=== PATIENT | female | born 1965 | race Caucasian/White ===

== ENCOUNTER 2019-07-20 17:11 | Emergency (ER) | payer BC, SELFPAY ==
[2019-07-20 17:13] VITALS: BP 143/83; PULSE 71; RESP 16; TEMP 35.8; O2SAT 97; BMI 33.3
--- NOTE | 2019-07-20 18:25 | ED.VIS.INJ ---
History of Present Illness Chief Complaint: Trauma Informant: Patient, Family, PCP Onset: Days - Secondary to fall down many steps. This occurred at [place]. She was evaluated trauma center. Diagnosed multiple rib fractures and right renal hematoma. To follow-up with her PCP today. Presented to the emergency department because of increased pain and swelling. Mechanism/Context: Blunt Injury, Fall Quality of Pain: Dull, Aching Location: Chest, right lower back and right lower extremity Current Severity: Mild Maximum Severity: Severe Worsened by: Palpation and movement Relieved by: Nothing Associated Symptoms: - - Patient denies hematuria. Patient denies pleuritic chest pain. Patient denies dyspnea with exertion. She does complain of discoloration and swelling of her right lower extremity.. Negative for: Parasthesias, Weakness, Loss of function, Inability to ambulate, Loss of consciousness, Amnesia Narrative: Middle-aged woman who fell down several steps. She was evaluated trauma center and diagnosed with 2 rib fracture on the right, renal hematoma on the right and multiple abrasions contusions. She was sent from her PCPs office because of swelling of her right lower extremity. She denies cardiac arrest or symptoms. She denies hematuria. She is on no anticoagulant. Prior similar symptoms: Yes Recent Illness/Hospitalization: Yes - Past Medical History (1) Depression Status: Chronic (2) Hypertension Status: Chronic (3) Ulcerative colitis Status: Chronic Past Medical History - Allergies and Home Meds Allergies/Adverse Reactions: Allergies sulfadiazine Allergy (Verified 07/20/19 17:12) Rash Primary Care Physician: Gee Curran MD [Primary Care Provider] - Prior records reviewed: No Lives: Spouse/ Significant Other Smoking Status: Current every day smoker Alcohol: Occasional Drugs: None - Family History Sibling Family History: Reports: Heart Disease Maternal Family History: Reports: Heart Disease Paternal Family History: Reports: Heart Disease Review of Systems General: Denies: Chills, Fever, Malaise, Sweats Eyes: Denies: Visual changes - bilaterally, Blurred Vision - bilaterally, Diplopia ENT: Denies: Bilateral ear pain, Rhinorrhea, Sore throat Cardiovascular: Reports: Chest pain - With movement Respiratory: Denies: Dyspnea, Cough, Dyspnea on exertion Gastrointestinal: Reports: Abdominal pain Genitourinary: Denies: Dysuria, Hematuria, Frequency Musculoskeletal: Reports: Back pain, Swelling, Extremity Pain. Denies: Myalgias, Arthralgias, Neck pain, -, - Skin: Reports: Abrasions, Wounds - Tubal abrasions and contusions. Denies: Rash Neurological: Denies: Headache, Weakness, Parasthesia, Numbness Psych: Reports: Depression. Denies: Anxiety, Suicidal thoughts Endocrine: Denies: Polyuria, Polydipsia Hematologic: Denies: Easy bruising, Easy bleeding Allergy: Denies: Uticaria, Swelling of the mouth, Swelling of the tongue Physical Exam Vital Signs/Narrative: Vital Signs Temp Pulse Resp BP Pulse Ox 07/20/19 17:13 96.4 F L 71 16 143/83 H 97 Inital Vital Signs reviewed: Yes General: Well nourished, Well developed Head: Normocephalic, Atraumatic Eyes: Perrl, EOMI ENT: TM's clear, No hemotympanum or drainage, No trauma Neck: Nontender, Full ROM Cardiovascular: Regular rate, Regular rhythm, No murmurs, Normal S1, Normal S2 Respiratory: No distress, CTA bilaterally, Chest nontender Abdomen: Soft, Nontender, Nondistended, Normal bowel sounds, No masses Back: CVA Tenderness - Right, Paraspinal Tenderness - Right lower back with ecchymosis noted. Negative for: CVA Tenderness - Left, Spinal Tenderness Extremeties: The right lower extremity is swollen comparison to the left. There is pain palpation of the calf. There is multiple contusions noted. There is no pain to palpation along the abductor canal. There is no inguinal lymphadenopathy or tenderness. DP and PT pulses are palpable. Skin: Normal color, No rash Neurological: Alert, Oriented x3, Cranial nerves II-XII grossly intact, Normal Strength, Normal Sensation Psychological: Normal affect - Glascow Coma Scale Eye Opening: Spontaneous Motor: Obeys Commands Verbal: Oriented Coma Scale Total: 15 Diagnostic/Tx/Re-eval Contacted at 1911 by radiology that the venous duplex of the right lower extremity was negative for DVT. Will discharge patient home with appropriate oral analgesia. - Medical Decision Making History of recent trauma, immobilization or long distance trip with swollen discolored right lower extremity venous duplex study was obtained to determine if a DVT was present versus contusion. If there is a DVT present she will not be able to be anticoagulated because of recent renal laceration and multiple rib fractures. ED Disposition - Plan for ED Patient: Disposition: Home or Assisted Living Diagnosis: Pain in right lower leg, Contusion of right lower extremity, Broken ribs, Kidney laceration, right Instructions: CONTUSION, Lower Extremity Prescriptions: Oxycodone HCl/Acetaminophen [Percocet 5/325] 1 tablet PO Q6H PRN PRN 5 Days #20 tablet PRN Reason: Pain Score 1-10/10 Transmission Status: Received by [facility]/pharmacy #[id number] Referrals: Gee Curran MD [Primary Care Provider] - As Needed Additional Instructions: Prescription was electronically transmitted to [facility] pharmacy located on back [facility], your pharmacy of choice.
[2019-07-20] MEDS: oxyCODONE 5 MG Tablet PO (18:38)
[2019-07-20 18:41] VITALS: BP 149/87; PULSE 81; RESP 16; O2SAT 96
--- NOTE | 2019-07-20 18:47 | US_ITS ---
STUDY: VENOUS DOPPLER ULTRASOUND - RIGHT LOWER EXTREMITY REASON FOR EXAM: Female, 54 years old. Swelling TECHNIQUE: Ultrasound evaluation of the deep vein system to include rueda-scale imaging and compression was performed. Rueda-scale imaging and Doppler sonographic evaluation, including duplex spectral analysis and qualitative color flow sonography, was performed. COMPARISON: None. FINDINGS: Common Femoral Vein: Normal compression, spontaneity and augmentation. Normal color Doppler. Common Femoral Vein/Greater Saphenous Junction: Normal compression, spontaneity and augmentation. Normal color Doppler. Deep Femoral Vein: Normal compression, spontaneity and augmentation. Normal color Doppler. Femoral Proximal: Normal compression, spontaneity and augmentation. Normal color Doppler. Femoral Middle: Normal compression, spontaneity and augmentation. Normal color Doppler. Femoral Distal: Normal compression, spontaneity and augmentation. Normal color Doppler. Popliteal Vein: Normal compression, spontaneity and augmentation. Normal color Doppler. Posterior Tibial Vein: Normal compression, spontaneity and augmentation. Normal color Doppler. Peroneal Vein: Normal compression, spontaneity and augmentation. Normal color Doppler. US/Venous Duplex Imag/Limited/Uni IMPRESSION: Normal venous Doppler ultrasound of the lower extremity. Electronically Signed: Koby Barker MD at 19:13 EDT , Service support ,
== END 2019-07-20 19:43 | disposition home or self-care (01) ==
PROVIDERS: Emergency Provider Emergency Medicine; Family Provider Family Medicine; PCP Family Medicine
DX: S22.41XA Multiple fractures of ribs, right side, initial encounter for closed fracture (principal); S80.11XA Contusion of right lower leg, initial encounter; S37.031A Laceration of right kidney, unspecified degree, initial encounter; W10.9XXA Fall (on) (from) unspecified stairs and steps, initial encounter; F32.9 Major depressive disorder, single episode, unspecified; I10 Essential (primary) hypertension; Z82.49 Family history of ischemic heart disease and other diseases of the circulatory system; Z88.2 Allergy status to sulfonamides; F17.200 Nicotine dependence, unspecified, uncomplicated
CPT/HCPCS: 93971; 99283

== ENCOUNTER 2019-12-07 15:48 | Emergency (ER) | payer OTHER, SELFPAY ==
[2019-12-07 15:49] VITALS: BP 140/68; PULSE 91; RESP 16; TEMP 36.6; O2SAT 98; BMI 29.0
[2019-12-07 15:52] VITALS: BP 140/68; PULSE 91; RESP 16; TEMP 36.6; O2SAT 98
--- NOTE | 2019-12-07 16:11 | ED.VIS.GI ---
History of Present Illness Chief Complaint: Abd Pain Narrative: Patient presenting for evaluation secondary to abdominal pain and flank pain. Patient states that back in June she suffered a mechanical fall where she actually suffered rib fractures and a laceration of her right kidney. She reports that since then she has been dealing with a continuous pain in that area that waxes and wanes. She reports that the pain is gotten somewhat worse recently, and has been associated with nausea vomiting and diarrhea over the course of the last 4 days. She denies any presence of fevers. She denies any urinary symptoms or hematuria. Patient states that she was at urgent care today, they evaluated her, and felt that she needed to come to the emergency department. Review of systems otherwise negative. Past Medical History - Allergies and Home Meds Allergies/Adverse Reactions: Allergies sulfadiazine Allergy (Verified 12/07/19 15:51) Rash Primary Care Physician: Gee Curran MD [Primary Care Provider] - Past Medical History: - - Ulcerative colitis and chronic pain Smoking Status: Current every day smoker - Family History Sibling Family History: Reports: Heart Disease Maternal Family History: Reports: Heart Disease Paternal Family History: Reports: Heart Disease Review of Systems All systems negative except as indicated General: Denies: Chills, Fever, Sweats Eyes: Denies: Visual changes - bilaterally, Diplopia ENT: Denies: Rhinorrhea, Sore throat Cardiovascular: Denies: Chest pain, Palpitations Respiratory: Denies: Dyspnea, Cough, Dyspnea on exertion Gastrointestinal: Reports: Abdominal pain, Nausea, Vomiting, Diarrhea Genitourinary: Denies: Dysuria, Hematuria, Frequency Musculoskeletal: Denies: Back pain, Extremity Pain Skin: Denies: Rash, Wounds Neurological: Denies: Headache, Weakness, Numbness Physical Exam Vital Signs/Narrative: Vital Signs Temp Pulse Resp BP Pulse Ox 12/07/19 15:52 97.9 F 91 16 140/68 H 98 12/07/19 15:49 97.9 F 91 16 140/68 H 98 Inital Vital Signs reviewed: Yes General: Well nourished, Well developed, No Acute Distress, - - Strong smell of tobacco smoke Head: Normocephalic, Atraumatic Eyes: Perrl, EOMI ENT: Moist mucous membranes, No rhinorrhea Neck: Supple, Nontender Cardiovascular: Regular rate, Regular rhythm, No murmurs Respiratory: No distress, CTA bilaterally, Chest nontender Abdomen: - - Right-sided flank tenderness to percussion, right lateral upper abdominal tenderness, no evidence of Deshpande sign, no palpable masses. Back: Nontender, Normal Inspection Extremities: Nontender, No edema Skin: Normal color, No rash Neurological: Alert, Oriented x3, Cranial nerves II-XII grossly intact, Normal Strength, Normal Sensation Psychological: Normal affect, Normal Mood Diagnostic/Tx/Re-eval - Medical Decision Making Patient presented secondary to right flank pain. IV was established patient was given morphine Zofran and fluids. CBC shows mild elevation of the patient's white blood cell count likely associated with her diarrheal illness. Chemistry shows a creatinine of 1.8. Patient had a creatinine in 2017 that was lower, but has had creatinines that have been higher in the past as well. This likely is associated with a mild acute kidney injury. Patient was given an additional dose of normal saline hydration. Repeat evaluation of the patient showed symptomatic improvement. CT abdomen and pelvis demonstrates chronic changes, nothing new. Patient's pain likely is secondary to her injury that happened back in the fall. Patient will be provided with a lidocaine patch and lidocaine patches for home. She was given reassurance. Patient was discharged in stable condition. ED Disposition - Plan for ED Patient: Disposition: Home or Assisted Living Diagnosis: Diarrhea, Dehydration, Flank pain Instructions: DEHYDRATION (6y-Adult), Treating Diarrhea, Rib Contusion Prescriptions: Lidocaine [Lidoderm] 1 ea TP DAILY #10 adh..patch Prescription Printed Referrals: Gee Curran MD [Primary Care Provider] - 3-5 Days
[2019-12-07 16:30] LABS: Bacteria 0 SEEN /hpf (None Seen); Mucous, Urine 0 SEEN /hpf (<or=2+); Red Blood Cells-Urine 0 SEEN /hpf (0-5)
[2019-12-07] MEDS: 0.9% Normal Saline 1,000 ML 1000 ML IV (16:30)
[2019-12-07] MEDS: Morphine 4 MG/ML Syringe IV (16:32)
[2019-12-07] MEDS: Ondansetron 4 MG/2 ML Vial IV (16:32)
[2019-12-07 16:37] LABS: Absolute Lymphocyte Count 3.71 X10^3/uL (0.83-4.51); Absolute Neutrophil Count 8.2 X10^3/uL (2.0-7.7); Basophil# 0.07 X10^3/uL; Basophil% 0.5 % (0-1); Eosinophil# 0.27 X10^3/uL; Hematocrit 38.8 % (37-47); Hemoglobin 13.1 g/dL (12.0-15.0); Lymphocyte # 3.71 X10^3/ul (4.0); Lymphocyte % 27.8 % (19-41); Mean Corp Hgb Conc 33.8 g/dL (32-36); Mean Corpuscular Hgb 31.1 pg (27.0-32.0); Mean Corpuscular Volume 92.2 fL (81-99); Mean Platelet Vol. 8.4 fl (6.2-12.0); Monocyte# 0.98 X10^3/uL; Monocyte% 7.4 % (0-10); NRBC Flagged by Analyzer 0 % (0-5); Neutrophil # 8.19 X10^3/uL (2.7-7.7); Neutrophil % 61.5 % (47-70); Platelet Count 349 K/mm3 (150-450); RBC Distribution Width CV 13.6 % (11.6-14.6); RBC Distribution Width SD 45.7 fl (35.1-43.9); Red Blood Count 4.21 M/mm3 (4.2-5.4); White Blood Count 13.3 K/mm3 (4.4-11.0)
[2019-12-07 16:48] LABS: Color, Urine Yellow (Yellow); Glucose, Dipstick Normal (Normal); Ketone-Dipstick Negative (Negative); Leukocyte Esterase-Dipstick Negative /ul (Negative); Nitrite-Dipstick Negative (Negative); Occult Blood-Urine 10 /ul (Negative); Protein-Dipstick 15 mg/dl (Negative); Specific Gravity, Urine 1.015 (1.002-1.030); Urine Bilirubin Dipstick Negative (Negative); Urine Clarity Clear (Clear); Urine Urobilinogen Normal (Normal)
[2019-12-07 17:34] LABS: Hyaline Cast 0-5 SEEN /lpf (0-5); Squamous Epithelial Cells - UA 0-5 SEEN /hpf (5-10)
[2019-12-07 17:36] LABS: Transitional Epithelial - Ur 0-5 SEEN /hpf (0-5); White Blood Cells 0-5 SEEN /hpf (0-5)
[2019-12-07 17:50] LABS: AST(SGOT) 18 U/L (15-37); Alanine Aminotransfer ALT/SGPT 25 U/L (13-56); Albumin, Serum 3.7 g/dL (3.2-5.0); Alkaline Phosphatase 85 U/L (45-117); Anion Gap 9 (5-15); BUN 41 mg/dL (7-18); BUN/Creat Ratio 22.5 RATIO (10-20); Calcium,Total 8.9 mg/dL (8.5-10.1); Chloride 108 mmol/L (98-107); Creatinine, Serum 1.82 mg/dL (0.55-1.02); EST Glomerular Filtration Rate 31 mL/min (>60); Est Glom Filt Rate - Afr Amer 37 mL/min (>60); Estimated Creatinine Clearance 34.36 ml/min; Globulin 3.8 g/dL (2.2-4.2); Glucose 104 mg/dL (74-106); Lipase 105 U/L (73-393); Potassium 4.1 mmol/L (3.5-5.1); Protein, Total 7.5 g/dL (6.4-8.2); Sodium Level 138 mmol/L (136-145)
--- NOTE | 2019-12-07 17:52 | CT_ITS ---
STUDY: CT ABDOMEN AND PELVIS WITHOUT CONTRAST REASON FOR EXAM: Female, 54 years old. Right flank pain. Nausea, vomiting and diarrhea. History of hypertension and lacerated right kidney June 2019. RADIATION DOSAGE (If Supplied By Facility): CTDIvol = ( 14.28 ) mGy, DLP = ( 750.45 ) mGycm TECHNIQUE: Transaxial images were obtained from the dome of the diaphragm to the symphysis pubis without oral contrast, and without intravenous contrast. Sagittal and coronal images were reconstructed. Individualized dose optimization techniques were used for this CT. COMPARISON: CT of the abdomen and pelvis, February 18, 2017. FINDINGS: The visualized lung bases are unremarkable. The visualized portions of the heart are within normal limits. There is a 8 mm cyst in segment 5 of an otherwise normal liver. Normal gallbladder and extrahepatic biliary system. Normal spleen. There is diffuse atrophy of the pancreas. Normal bilateral adrenal glands. Normal right kidney. Normal left kidney. Normal visualized ureters. Normal visualized stomach. Normal small intestine. Normal colon. There is non-visualization of the appendix. There is diffuse atherosclerotic calcification of the abdominal aorta, without a demonstrated aneurysm. Normal inferior vena cava. Normal retroperitoneum. Normal urinary bladder. There is a 3.1 x 3 x 2.4 cm exophytic fibroid off the posterior right uterine fundus. There is a 2.4 x 2.1 x 2.2 cm calcified exophytic fibroid off the midline fundus. There is a ringlike calcification within the left adnexa. Is no pelvic lymphadenopathy or mass. No free air or free fluid is seen within the peritoneal cavity. Normal abdominal wall. Normal osseous structures. CT/Abdomen/Pelvis without Cont IMPRESSION: Stable findings when compared to the previous study. Electronically Signed: Lang Mooney DO at 18:16 EST Tel [phone], Service support ,
[2019-12-07] MEDS: 0.9% Normal Saline 1,000 ML 999 ML IV (18:16)
[2019-12-07 18:17] VITALS: BP 133/77; PULSE 67; RESP 16; O2SAT 98
[2019-12-07] MEDS: Lidocaine 5% Patch 1 PATCH TOPICAL (19:28)
== END 2019-12-07 19:29 | disposition home or self-care (01) ==
PROVIDERS: Emergency Provider Emergency Medicine; PCP Family Medicine
DX: R19.7 Diarrhea, unspecified (principal); E86.0 Dehydration; R10.9 Unspecified abdominal pain; G89.29 Other chronic pain; I10 Essential (primary) hypertension; F17.200 Nicotine dependence, unspecified, uncomplicated; Z82.49 Family history of ischemic heart disease and other diseases of the circulatory system; Z88.2 Allergy status to sulfonamides
CPT/HCPCS: 74176; 80053; 81001; 83690; 85025; 96361; 96374; 96375; 99283; J7030; A4216; J2405

== ENCOUNTER 2020-05-25 14:49 | Emergency (ER) | payer OTHER, SELFPAY ==
[2020-05-25 14:50] VITALS: BP 141/99; PULSE 85; RESP 16; TEMP 36.7; O2SAT 97; BMI 30.7
--- NOTE | 2020-05-25 15:03 | US_ITS ---
STUDY: ABDOMINAL ULTRASOUND - RIGHT UPPER QUADRANT REASON FOR VISIT: Female, 55 years old NAUSEA,VOMITING, DIARRHEA TECHNIQUE: Ultrasound evaluation of the right upper quadrant was performed with real-time and static villa-scale imaging. TECHNICAL QUALITY: Adequate. COMPARISON: CT abdomen 12/07/2019. FINDINGS: Liver: The liver measures 17.5 cm. There is normal echogenicity of the liver. The bile ducts are within normal limits. There is hepatic color flow. The direction of portal flow is hepatopetal. 1.2 cm cyst is noted in the right lobe. Gallbladder: Normal distended gallbladder. The gallbladder wall measures 3 mm. There is a negative sonographic Deshpande''s sign. There is no pericholecystic fluid. There are no gallstones. Common Bile Duct (C.B.D.): The common bile duct measures 2 mm. Pancreas: Normal size of the head, body and tail of the pancreas. There is normal echogenicity of the pancreas. There is no demonstrated pancreatic mass or cyst. Right Kidney: Normal size of the right kidney. The right kidney measures 11.2 x 5.4 x 5.1 cm. Normal renal cortex. The right cortex measures 1.8 cm. There is no demonstrated renal mass or cyst. There is no right hydronephrosis. US/Gallbladder IMPRESSION: Small hepatic cyst, otherwise negative right upper quadrant ultrasound examination. Electronically Signed: Hui Maxwell MD at 17:05 EDT Tel , Service support ,
--- NOTE | 2020-05-25 15:10 | CT_ITS ---
STUDY: CT ABDOMEN AND PELVIS WITHOUT CONTRAST REASON FOR EXAM: Female, 55 years old. UPPER ABD PAIN/HX OF ULCERATIVE COLITIS RADIATION DOSAGE (If Supplied By Facility): CTDIvol = ( 13.93 ) mGy, DLP = ( 728.58 ) mGycm TECHNIQUE: Transaxial images were obtained from the dome of the diaphragm to the symphysis pubis without oral contrast, and without intravenous contrast. Sagittal and coronal images were reconstructed. Individualized dose optimization techniques were used for this CT. COMPARISON: 12/07/2019. FINDINGS: Mild fibrotic changes in the lung bases. Heart size is normal. There is a 0.9 cm low-attenuation lesion in the inferior aspect of the right lobe of the liver, too small to characterize. The liver is unremarkable. The gallbladder is unremarkable. The spleen and pancreas are unremarkable. The adrenal glands are normal. The kidneys are unremarkable. No stones or hydronephrosis. The aorta is normal in caliber. There is no free fluid, free air or organized collection. No bowel obstruction or inflammatory change. Normal appendix. Urinary bladder is unremarkable. Multiple uterine masses with calcification consistent with fibroids. Normal abdominal wall. Normal osseous structures. CT/Abdomen/Pel W ORAL Cont Only IMPRESSION: 1. No acute findings. 2. Uterine fibroids. 3. Hepatic hypodensity, too small to characterize. Electronically Signed: Hui Maxwell MD at 18:19 EDT Tel , Service support ,
--- NOTE | 2020-05-25 15:17 | ED.DCSUM_ITS ---
- ER Visit Summary Date of Service: 05/25/20 Chief Complaint: Abdominal pain, vomiting, diarrhea History of Present Illness: The patient is a [address] 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 She reports that she has a history of ulcerative colitis. She is on Entocort and mesalamine. She reports she has upper abdominal pain that began 2 days ago. Says sharp pain is 10/10 at worst 8/10 currently. It radiates into her back. Is worsened by movement or coughing. She relieved by nothing. She reports she is vomited multiple times. No blood in her emesis. She reports that she is having diarrhea 6 times a day for the past 2 days. States the stool is black after taking Pepto-Bismol, but was not black prior to this. She denies any blood in her stools. Patient denies sick contacts. Has not been camping out of the country. No possible bad food exposure. Does drink well water, but others do as well at home and they are not ill. No recent antibiotic use. Patient complains of subjective fever and chills. She reports she has a sore throat from vomiting. She denies cough. She reports she has frequent urination, but no dysuria. Physical Examination: Vitals: Stable. Afebrile. General: Well-nourished and well-developed. Head: Normocephalic atraumatic. Neck: Supple, no lymphadenopathy. No JVD. Nontender. Cardiovascular: Regular rate and rhythm. No murmurs. Respiratory: No respiratory distress. Clear to auscultation bilaterally. Abdominal: Soft, moderate tenderness palpation is diffuse over the upper abdomen that is worst in the right upper quadrant, nondistended, normal bowel sounds. No guarding, rebound, or peritoneal signs. Back: Nontender. Extremities: Nontender, no edema. Skin: Normal color, no rash. Neurologic: Alert and oriented ?3. Cranial nerves II through XII are intact. Normal strength and sensation. Psych: Normal affect. Test Results: CBC shows a white count of 14.2. Chem-7 shows a sodium 134 and potassium of 3.0. LFTs showed a total protein of 8.4. Lipase is 59. UA shows occult blood. Clinical Impression(s) from Imaging Studies Gallbladder Ultrasound 05/25/20 15:03 IMPRESSION: Small hepatic cyst, otherwise negative right upper quadrant ultrasound examination. Electronically Signed: Hui Maxwell MD at 17:05 EDT Tel , Service support , Abdomen CT 05/25/20 15:10 IMPRESSION: 1. No acute findings. 2. Uterine fibroids. 3. Hepatic hypodensity, too small to characterize. Electronically Signed: Hui Maxwell MD at 18:19 EDT Tel , Service support , Emergency Department Course and Treatment: Patient had an IV placed. She was given morphine and Zofran IV. She is resting more comfortably. Unfortunately she has not been able to give us a stool sample. Treatment Plan: Patient be discharged with [place] and Zofran. She is instructed to eat high potassium foods. Instructed to follow-up with her primary care physician in 1 to 2 days if not improving. Follow-up with her cost and risk analysis manager as possible. Return to the emergency department for any worsening symptoms. Disposition: To home in improved and stable condition. Impression: 1. Abdominal pain, uncertain cause. 2. Hypokalemia. 3. History of ulcerative colitis. This note was generated with Fillm dictation software. It may contain incorrect words, spelling, and punctuation that were not noted in review of the chart prior to signing ED Disposition - Plan for ED Patient: Instructions: ED Epigastric Pain [facility] Prescriptions: Hydrocodone Bitart/Apap 5-325 [[place] 5MG-325MG] 1 tablet PO Q4H PRN PRN 2 Days #10 tablet PRN Reason: Pain Ondansetron [Zofran Odt] 4 mg PO Q8H PRN PRN #10 tablet PRN Reason: Nausea Referrals: Gee Curran MD [Primary Care Provider] - 1-2 Days if not improving
[2020-05-25 15:21] LABS: Absolute Lymphocyte Count 3.45 X10^3/uL (0.83-4.51); Absolute Neutrophil Count 9.3 X10^3/uL (2.0-7.7); Basophil# 0.07 X10^3/uL; Basophil% 0.5 % (0-1); Eosinophil# 0.09 X10^3/uL; Eosinophils% 0.6 % (0-5); Hematocrit 42.6 % (37-47); Hemoglobin 14.4 g/dL (12.0-15.0); Lymphocyte # 3.45 X10^3/ul (4.0); Lymphocyte % 24.3 % (19-41); Mean Corp Hgb Conc 33.8 g/dL (32-36); Mean Corpuscular Hgb 30.9 pg (27.0-32.0); Mean Corpuscular Volume 91.4 fL (81-99); Mean Platelet Vol. 8.2 fl (6.2-12.0); Monocyte# 1.25 X10^3/uL; Monocyte% 8.8 % (0-10); NRBC Flagged by Analyzer 0 % (0-5); Neutrophil % 65.4 % (47-70); Platelet Count 375 K/mm3 (150-450); RBC Distribution Width CV 13.5 % (11.6-14.6); RBC Distribution Width SD 44.8 fl (35.1-43.9); Red Blood Count 4.66 M/mm3 (4.2-5.4); White Blood Count 14.2 K/mm3 (4.4-11.0)
[2020-05-25 15:45] LABS: AST(SGOT) 19 U/L (15-37); Alanine Aminotransfer ALT/SGPT 23 U/L (13-56); Albumin, Serum 4.3 g/dL (3.2-5.0); Alkaline Phosphatase 87 U/L (45-117); Anion Gap 7 (5-15); BUN 16 mg/dL (7-18); BUN/Creat Ratio 17.5 RATIO (10-20); Bilirubin, Direct 0.12 mg/dL (0.00-0.30); Calcium,Total 9.5 mg/dL (8.5-10.1); Chloride 99 mmol/L (98-107); Creatinine, Serum 0.91 mg/dL (0.55-1.02); EST Glomerular Filtration Rate 68 mL/min (>60); Est Glom Filt Rate - Afr Amer 82 mL/min (>60); Estimated Creatinine Clearance 67.93 ml/min; Globulin 4.1 g/dL (2.2-4.2); Glucose 103 mg/dL (74-106); Lipase 59 U/L (73-393); Protein, Total 8.4 g/dL (6.4-8.2); Sodium Level 134 mmol/L (136-145)
[2020-05-25 15:47] LABS: Bacteria 0 SEEN /hpf (None Seen); Mucous, Urine 0 SEEN /hpf (<or=2+); White Blood Cells 0 SEEN /hpf (0-5)
[2020-05-25 16:03] LABS: Color, Urine Yellow (Yellow); Glucose, Dipstick Normal (Normal); Ketone-Dipstick Negative (Negative); Leukocyte Esterase-Dipstick Negative /ul (Negative); Nitrite-Dipstick Negative (Negative); Occult Blood-Urine 10 /ul (Negative); Protein-Dipstick 30 mg/dl (Negative); Urine Bilirubin Dipstick Negative (Negative); Urine Clarity Clear (Clear); Urine Urobilinogen Normal (Normal)
[2020-05-25] MEDS: 0.9% Normal Saline 1,000 ML 1000 ML IV (16:20)
[2020-05-25] MEDS: Morphine 4 MG/ML Syringe IV ×2 (16:20→19:21)
[2020-05-25] MEDS: Ondansetron 4 MG/2 ML Vial IV (16:20)
[2020-05-25 16:30] LABS: Red Blood Cells-Urine 0-5 SEEN /hpf (0-5); Squamous Epithelial Cells - UA 0-5 SEEN /hpf (5-10)
[2020-05-25 18:06] VITALS: BP 154/93; O2SAT 93
[2020-05-25 19:23] VITALS: BP 163/101; PULSE 71; RESP 16; O2SAT 97
== END 2020-05-25 19:30 | disposition home or self-care (01) ==
LOC: ED 15:15
PROVIDERS: Emergency Provider Emergency Medicine; PCP Family Medicine
DX: R10.9 Unspecified abdominal pain (principal); E87.6 Hypokalemia; Z87.19 Personal history of other diseases of the digestive system; D25.9 Leiomyoma of uterus, unspecified; K76.89 Other specified diseases of liver; R35.0 Frequency of micturition
CPT/HCPCS: 74176; 76705; 80048; 80076; 81001; 83690; 85025; 96361; 96374; 96375; 96376; 99283; J7030; A4216; J2405

== ENCOUNTER 2023-01-09 09:52 | Inpatient (IN) | payer OTHER, SELFPAY ==
[2023-01-09] VITALS (8 sets, daily range): BP systolic 91–139; BP diastolic 53–84; PULSE 63–84; RESP 14–18; TEMP 35.9–36.8; O2SAT 95–100; BMI 30.2
--- NOTE | 2023-01-09 10:22 | EKG12_ITS ---
Test Reason : Blood Pressure : / mmHG Vent. Rate : 071 BPM Atrial Rate : 071 BPM P-R Int : 152 ms QRS Dur : 088 ms QT Int : 412 ms P-R-T Axes : 029 -21 -02 degrees QTc Int : 447 ms Normal sinus rhythm Minimal voltage criteria for LVH, may be normal variant ( R in aVL ) Borderline ECG Confirmed by ANTELMO MACIEL, CHARLENE ([id number]), news videotape editor VIJAY VERMA ([id number]) on 01/13/2023 12:12:26 P M Referred By: Confirmed By:BRYAN RODRIGES MD
--- NOTE | 2023-01-09 10:23 | EX.ED.DYSGE1 ---
[facility] <Dr. Tyrel Denny MD - Last Filed: 01/09/23 12:31> History of Present Illness Chief Complaint: Weakness Informant: patient Narrative Narrative: Patient's presents with nausea vomiting diarrhea and generalized weakness. She states she has had a lifelong problem with irritable bowel syndrome and diarrhea. This waxes and wanes. Her last colonoscopy was July 2022 that evidently showed no acute process. She has been on mesalamine for this. But it sounds like she does not have Crohn's or ulcerative colitis. She states her symptoms wax and wane. She has been getting more diarrhea over the last couple months. She has seen her doctors about this. Over the last week or so she has had a little bit more of the vomiting. All the symptoms are common for her they just sometimes get worse and she has a history of getting dehydrated. She got lightheaded yesterday. She just feels tired today. She has not seen blood in the stool. She has not had fevers or chills. She is not having abdominal pain. Of note, patient is on Lasix at 20 mg a day and is still taking this. She has never had heart disease or history of congestive heart failure. She does not know for what reason she takes this but has been on it for 2 or 3 years. When asked, she does seem to have a decreased volume of urine but there is no dysuria or odor. [facility] <Dr. Tyrel Denny MD - Last Filed: 01/09/23 12:31> [facility] Medical History (Updated 01/09/23 @ 14:50 by Angelique Fu) Anxiety Substance abuse Home Medications lisinopril 20 mg tablet 20 mg PO QHS BLOOD PRESSURE 02/18/17 [History Last Taken 01/08/23] amlodipine 10 mg tablet 10 mg PO DAILY BLOOD PRESSURE 07/20/19 [History Last Taken 01/09/23] furosemide 20 mg tablet 20 mg PO DAILY FLUID 05/25/20 [History Last Taken 01/09/23] cholecalciferol (vitamin D3) 25 mcg (1,000 unit) tablet 25 mcg PO DAILY SUPPLEMENT 01/09/23 [History Last Taken 01/09/23] cyanocobalamin (vitamin B-12) 1,000 mcg tablet (Vitamin B-12) 3,000 mcg PO DAILY SUPPLEMENT 01/09/23 [History Last Taken 01/09/23] duloxetine 60 mg capsule,delayed release 60 mg PO DAILY DEPRESSION 01/09/23 [History Last Taken 01/08/23] gabapentin 600 mg tablet 600 mg PO TID NERVE PAIN 01/09/23 [History Last Taken 01/09/23 05:00] loperamide 2 mg capsule 2 mg PO DAILY DIARRHEA 01/09/23 [History Last Taken 01/09/23] multivit with ulofytwy-jaxj-RI-lutein 8 mg iron-400 mcg-300 mcg tablet (Centrum Silver Women) 1 tab PO DAILY HEALTH MAINTENANCE 01/09/23 [History Last Taken 01/09/23] naproxen sodium 220 mg tablet (Aleve) 440 mg PO BID BACK PAIN 01/09/23 [History Last Taken 01/09/23] pantoprazole 40 mg tablet,delayed release 40 mg PO DAILY ACID REFLUX 01/09/23 [History Last Taken 01/09/23] psyllium husk (aspartame) 3.4 gram oral powder packet (Daily Fiber (psyllium-aspartame)) 1 packet PO BID DIARRHEA 01/09/23 [History Last Taken 01/09/23] zinc acetate 50 mg (zinc) capsule 50 mg PO DAILY SUPPLEMENT 01/09/23 [History Last Taken 01/09/23] Allergy/AdvReac Type Severity Reaction Status Date / Time sulfadiazine Allergy Rash Verified 01/09/23 09:55 Family History (Updated 01/09/23 @ 15:[address] Jose Hinojosa MD) Other Colon cancer Heart disease Social History Smoking Status: Current every day smoker tobacco type: cigarettes ROS <Dr. Tyrel Denny MD - Last Filed: 01/09/23 12:31> ROS ED Constitutional Constitutional ED: Denies chills, fever(s) or subjective Eyes Eyes: Denies change in vision or diplopia ENT ENT ED: Denies rhinorrhea or sore throat Cardiovascular Cardiovascular: Denies chest pain, palpitations or racing heartbeat Respiratory/Chest Respiratory/Chest: Denies cough or dyspnea Gastrointestinal Gastrointestinal: Reports diarrhea, nausea and vomiting; Denies abdominal pain, constipation or melena Genitourinary Genitourinary ED: Denies dysuria or urinary frequency Musculoskeletal Musculoskeletal: Denies myalgias Integumentary Denies rash Neurologic Neurologic: Denies headache(s) Endocrine Endocrinology: Denies polydipsia or polyuria Hematologic/Lymphatic Hematologic/Lymphatic: Denies easy bleeding or easy bruising Allergic/Immunologic Allergic/Immunologic ED: Denies urticaria EXAM <Dr. Tyrel Denny MD - Last Filed: 01/09/23 12:31> Physical Exam Narrative Exam Narrative: Patient awake alert no acute distress. HEENT: No sign of trauma. She is well made up and appropriately groomed. Mucous membranes are somewhat dry. Neck shows no JVD Lungs are completely clear bilaterally. No rales. Heart is regular with a rate of about 80. I hear no murmur gallop or rub. Peripheral pulses are equal. Abdomen is soft nondistended has normal bowel sounds and is completely nontender in all areas. shows no CVA or suprapubic tenderness on exam. Extremities show no edema or tenderness. Skin is not pale or jaundiced diaphoretic. Neurologically she is awake alert and appropriate. There is no focal weakness. Const Vital Signs: 01/09/23 09:53 01/09/23 09:55 01/09/23 09:55 Temperature 98 F 97.6 F L Temperature Source Temporal Temporal Pulse Rate 84 63 Respiratory Rate 18 18 Respiratory Pattern Normal Blood Pressure 91/57 L 91/57 L Blood Pressure Mean 68 68 Pulse Ox 100 99 Oxygen Delivery Method Room Air Room Air 01/09/23 12:18 Temperature Temperature Source Pulse Rate 75 Respiratory Rate 18 Respiratory Pattern Blood Pressure 139/84 H Blood Pressure Mean 102 Pulse Ox 99 Oxygen Delivery Method Room Air <Dr. Nick Chaidez MD - Last Filed: 01/09/23 15:50> Physical Exam Const Vital Signs: 01/09/23 09:53 01/09/23 09:55 01/09/23 09:55 Temperature 98 F 97.6 F L Temperature Source Temporal Temporal Pulse Rate 84 63 Respiratory Rate 18 18 Respiratory Pattern Normal Blood Pressure 91/57 L 91/57 L Blood Pressure Mean 68 68 Pulse Ox 100 99 Oxygen Delivery Method Room Air Room Air 01/09/23 12:18 Temperature Temperature Source Pulse Rate 75 Respiratory Rate 18 Respiratory Pattern Blood Pressure 139/84 H Blood Pressure Mean 102 Pulse Ox 99 Oxygen Delivery Method Room Air MDM <Dr. Tyrel Denny MD - Last Filed: 01/09/23 12:31> MDM MDM Narrative Medical decision making narrative: Patient blood work showing nonspecific mild elevation of her white count. But she denies abdominal pain or fevers. Electrolytes show high potassium at 5.4. This should correct with IV fluids given here. She also had a high BUN and creatinine at 88 and 5.62. My last labs were in 2019. She states she had labs done by another doctor a few weeks ago and was told her cholesterol was high but does not recall being told any other problems. I would think of cholesterol was checked she would likely have had her creatinine checked. But I have no access to these labs. Of note patient is on both Lasix and lisinopril. I have given her IV fluids here and will give her more. I think with her significant acute kidney injury she should come in the hospital and I discussed the case with the hospitalist. Lab Data Attestation: I reviewed the patient's lab results. Labs: Laboratory Results - last 24 hr 01/09/23 01/09/23 11:05 11:05 WBC 13.5 H RBC 4.48 Hgb 13.6 Hct 40.8 MCV 91.1 MCH 30.4 MCHC 33.3 RDW Std Deviation 44.2 H RDW Coeff of Tristian 13.2 Plt Count 336 MPV 8.6 Immature Gran % (Auto) 0.700 Neut % (Auto) 64.2 Lymph % (Auto) 25.8 [place] % (Auto) 5.5 Eos % (Auto) 3.3 Baso % (Auto) 0.5 Absolute Neuts (auto) 8.7 H Absolute Lymphs (auto) 3.48 Nucleated RBC % 0 Sodium 133 L Potassium 5.4 H Chloride 96 L Carbon Dioxide 21.0 Anion Gap 16 H BUN 88 H Creatinine 5.62 H Estim Creat Clear Calc 10.74 Est GFR (MDRD) Af Amer 10 L Est GFR (MDRD) Non-Af 8 L BUN/Creatinine Ratio 15.7 Glucose 118 H Calcium 9.0 EKG Initial EKG: Comments: My independent interpretation of the patient's EKG done for lightheadedness shows a normal sinus rhythm with overall rate of 71. No ventricular ectopy. There is some indication of LVH with secondary changes. No acute ST elevation. NV interval, QRS duration and QTc are normal. Management Discussion w/another healthcare provider: Hospitalist <Dr. Nick Chaidez MD - Last Filed: 01/09/23 15:50> MDM Lab Data Labs: Laboratory Results - last 24 hr 01/09/23 01/09/23 11:05 11:05 WBC 13.5 H RBC 4.48 Hgb 13.6 Hct 40.8 MCV 91.1 MCH 30.4 MCHC 33.3 RDW Std Deviation 44.2 H RDW Coeff of [place]ist[place] 13.2 Plt Count 336 MPV 8.6 Immature Gran % (Auto) 0.700 Neut % (Auto) 64.2 Lymph % (Auto) 25.8 [place] % (Auto) 5.5 Eos % (Auto) 3.3 Baso % (Auto) 0.5 Absolute Neuts (auto) 8.7 H Absolute Lymphs (auto) 3.48 Nucleated RBC % 0 Sodium 133 L Potassium 5.4 H Chloride 96 L Carbon Dioxide 21.0 Anion Gap 16 H BUN 88 H Creatinine 5.62 H Estim Creat Clear Calc 10.74 Est GFR (MDRD) Af Amer 10 L Est GFR (MDRD) Non-Af 8 L BUN/Creatinine Ratio 15.7 Glucose 118 H Calcium 9.0 Treatment and Re-Evaluation Comments:: I did not participate in the care of this pt; inadvertently clicked on chart. -Kaylynn Discharge Plan Dx/Rx/DC Orders Clinical Impression: BRIJESH (acute kidney injury), Dehydration, Hyperkalemia, History of IBS, Nausea vomiting and diarrhea Disposition Disposition: [facility] Discharge Date/Time: 01/09/23 14:27
[2023-01-09] MEDS: 0.9% Normal Saline 1,000 ML 1000 ML IV (10:39)
[2023-01-09 11:15] LABS: Absolute Lymphocyte Count 3.48 X10^3/uL (0.83-4.51); Absolute Neutrophil Count 8.7 X10^3/uL (2.0-7.7); Basophil# 0.07 X10^3/uL; Basophil% 0.5 % (0-1); Eosinophil# 0.45 X10^3/uL; Eosinophils% 3.3 % (0-5); Hematocrit 40.8 % (37-47); Hemoglobin 13.6 g/dL (12.0-15.0); Lymphocyte # 3.48 X10^3/ul (0.83-4.51); Lymphocyte % 25.8 % (19-41); Mean Corp Hgb Conc 33.3 g/dL (32-36); Mean Corpuscular Hgb 30.4 pg (27.0-32.0); Mean Corpuscular Volume 91.1 fL (81-99); Mean Platelet Vol. 8.6 fl (6.2-12.0); Monocyte# 0.74 X10^3/uL; Monocyte% 5.5 % (0-10); NRBC Flagged by Analyzer 0 % (0-5); Neutrophil # 8.65 X10^3/uL (2.7-7.7); Neutrophil % 64.2 % (47-70); Platelet Count 336 K/mm3 (150-450); RBC Distribution Width CV 13.2 % (11.6-14.6); RBC Distribution Width SD 44.2 fl (35.1-43.9); Red Blood Count 4.48 M/mm3 (4.2-5.4); White Blood Count 13.5 K/mm3 (4.4-11.0)
[2023-01-09 11:28] LABS: Anion Gap 16 (5-15); BUN 88 mg/dL (7-18); BUN/Creat Ratio 15.7 RATIO (10-20); Chloride 96 mmol/L (98-107); Creatinine, Serum 5.62 mg/dL (0.55-1.02); EST Glomerular Filtration Rate 8 mL/min (>60); Est Glom Filt Rate - Afr Amer 10 mL/min (>60); Estimated Creatinine Clearance 10.74 ml/min; Glucose 118 mg/dL (74-106); Potassium 5.4 mmol/L (3.5-5.1); Sodium Level 133 mmol/L (136-145)
--- NOTE | 2023-01-09 12:29 | HP.PCM.HOS_ITS ---
HPI - General General Date of Admission: 01/09/23 HPI Narrative MAIN SPENCE, is a 57 F who presents with weakness. She does have a history of irritable bowel syndrome and she also states that she has been told she has ulcerative colitis, and has periodic episodes of diarrhea and then on occasion can also have some nausea and vomiting. 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 She is been having these issues for the last several months but did get worse recently. She states that she had a colonoscopy in July 2022 that was essentially normal. She is also on Lasix and lisinopril, she is unaware as to why she is on Lasix her last echo did not show any signs of heart failure with normal EF and a stage I diastolic dysfunction. She states that she has been taking her medications even during her episodes of diarrhea and nausea and vomiting. In the ER she is found to have acute renal failure with a creatinine of over 5 and a potassium of 5.4. She was given 2 L of fluid in the ER. [facility] Medical History (Updated 01/09/23 @ 14:50 by Angelique Fu) Anxiety Substance abuse Home Medications lisinopril 20 mg tablet 20 mg PO QHS BLOOD PRESSURE 02/18/17 [History Last Taken 01/08/23] amlodipine 10 mg tablet 10 mg PO DAILY BLOOD PRESSURE 07/20/19 [History Last Taken 01/09/23] furosemide 20 mg tablet 20 mg PO DAILY FLUID 05/25/20 [History Last Taken 01/09/23] cholecalciferol (vitamin D3) 25 mcg (1,000 unit) tablet 25 mcg PO DAILY SUPPLEMENT 01/09/23 [History Last Taken 01/09/23] cyanocobalamin (vitamin B-12) 1,000 mcg tablet (Vitamin B-12) 3,000 mcg PO DAILY SUPPLEMENT 01/09/23 [History Last Taken 01/09/23] duloxetine 60 mg capsule,delayed release 60 mg PO DAILY DEPRESSION 01/09/23 [History Last Taken 01/08/23] gabapentin 600 mg tablet 600 mg PO TID NERVE PAIN 01/09/23 [History Last Taken 01/09/23 05:00] loperamide 2 mg capsule 2 mg PO DAILY DIARRHEA 01/09/23 [History Last Taken 01/09/23] multivit with rxybtitn-xyby-TB-lutein 8 mg iron-400 mcg-300 mcg tablet (Centrum Silver Women) 1 tab PO DAILY HEALTH MAINTENANCE 01/09/23 [History Last Taken 01/09/23] naproxen sodium 220 mg tablet (Aleve) 440 mg PO BID BACK PAIN 01/09/23 [History Last Taken 01/09/23] pantoprazole 40 mg tablet,delayed release 40 mg PO DAILY ACID REFLUX 01/09/23 [History Last Taken 01/09/23] psyllium husk (aspartame) 3.4 gram oral powder packet (Daily Fiber (psyllium- aspartame)) 1 packet PO BID DIARRHEA 01/09/23 [History Last Taken 01/09/23] zinc acetate 50 mg (zinc) capsule 50 mg PO DAILY SUPPLEMENT 01/09/23 [History Last Taken 01/09/23] Allergy/AdvReac Type Severity Reaction Status Date / Time sulfadiazine Allergy Rash Verified 01/09/23 09:55 Family History (Updated 01/09/23 @ 15:[address] Jose Hinojosa MD) Other Colon cancer Heart disease no surgical history Social History Smoking Status: Current every day smoker tobacco type: cigarettes ROS Constitutional Constitutional: Reports fatigue; Denies chills, fever(s) or malaise Eyes Eyes: Denies blurry vision ENT HEENT: Denies headache(s) or nasal discharge Cardiovascular Cardiovascular: Denies chest pain, dyspnea on exertion or syncope Respiratory/Chest Respiratory/Chest: Denies cough, shortness of breath at rest or shortness of breath with exertion Gastrointestinal Gastrointestinal: Reports diarrhea, nausea and vomiting; Denies constipation Genitourinary Genitourinary: Denies dysuria Neurologic Neurologic: Denies focal weakness, numbness or tremor(s) Psychiatric Psychiatric: Denies anxiety or depression Vital Signs Vital Signs Vital Signs: 01/09/23 09:53 01/09/23 09:55 01/09/23 09:55 Temperature 98 F 97.6 F L Temperature Source Temporal Temporal Pulse Rate 84 63 Respiratory Rate 18 18 Respiratory Pattern Normal Blood Pressure 91/57 L 91/57 L Blood Pressure Mean 68 68 Pulse Ox 100 99 Oxygen Delivery Method Room Air Room Air 01/09/23 12:18 Temperature Temperature Source Pulse Rate 75 Respiratory Rate 18 Respiratory Pattern Blood Pressure 139/84 H Blood Pressure Mean 102 Pulse Ox 99 Oxygen Delivery Method Room Air Weight Weight: 193 lb Body Mass Index (BMI) 30.2 Physical Exam Narrative General: Alert, Oriented x3, Cooperative, No apparent distress HEENT: Atraumatic, PERRLA, EOMI, Normocephalic Oral: Dry mucosa Neck: Supple, No JVD Lungs: Clear to auscultation, Normal air movement, No rhonchi, No wheeze, No rales Cardiovascular: Regular rate, Regular Rhythm, Normal S1, Normal S2, No murmurs Abdomen: Soft, Non Tender, Non-Distended, No Hepato-splenomegaly Extremities: No edema, Capillary Refill Less than 3 Seconds Skin: No rashes, No breakdown Musculoskeletal: No Tenderness to Palpation of Joints or Extremities Neurological: Cranial nerves II-XII grossly intact, Motor Exam 5/5 strength throughout, Sensory exam intact to light touch and pain Psych/Mental Status: Normal Affect, Appropriate Results Lab / Micro Data Result Diagrams: 01/09/23 11:05 01/09/23 11:05 Labs: Laboratory Results - last 24 hr 01/09/23 11:05: WBC 13.5 H, RBC 4.48, Hgb 13.6, Hct 40.8, MCV 91.1, MCH 30.4, M CHC 33.3, RDW Std Deviation 44.2 H, RDW Coeff of Tristian 13.2, Plt Count 336, MPV 8.6, Immature Gran % (Auto) 0.700, Neut % (Auto) 64.2, Lymph % (Auto) 25.8, [place] % (Auto) 5.5, Eos % (Auto) 3.3, Baso % (Auto) 0.5, Absolute Neuts (auto) 8.7 H, Absolute Lymphs (auto) 3.48, Nucleated RBC % 0 01/09/23 11:05: Sodium 133 L, Potassium 5.4 H, Chloride 96 L, Carbon Dioxide 21.0, Anion Gap 16 H, BUN 88 H, Creatinine 5.62 H, Estim Creat Clear Calc 10.74, Est GFR (MDRD) Af Amer 10 L, Est GFR (MDRD) Non-Af 8 L, BUN/Creatinine Ratio 15.7, Glucose 118 H, Calcium 9.0 Assessment & Plan Assessment/Plan (1) Dehydration: (2) BRIJESH (acute kidney injury): PLAN: Plan 1. Acute renal failure from dehydration secondary to nausea, vomiting, diarrhea possible gastroenteritis versus medications in conjunction with diarrhea from IBD versus IBS ? Her med list does demonstrate mesalamine and there is a documented history of ulcerative colitis though colonoscopy in July 2022 was negative, she states that she used to be on Asacol but this was discontinued and that her PCP provides her with prednisone on occasion whenever she has diarrhea ? Continue with aggressive fluids ? We will recheck renal function in the morning ? We will hold her Lasix and her lisinopril 2. Hypertension ? Blood pressure stable ? She had an echo in 2017 with a normal EF and a stage I diastolic dysfunction ? We will hold her Lasix or lisinopril 3. Anxiety/depression/irritable bowel syndrome ? Stable ? Continue with citalopram 4. GERD ? Stable ? Continue with PPI DVT: SCDs Charges/Coding Visit Charges Inpatient E&M: 61917 Init Hosp L2
[2023-01-09] MEDS: 0.9% Normal Saline 1,000 ML 999 ML IV (13:08)
[2023-01-09 14:16] LABS: Mucous, Urine 0 SEEN /hpf (<or=2+); White Blood Cells 0 SEEN /hpf (0-5)
[2023-01-09 14:17] LABS: Color, Urine Yellow (Yellow); Glucose, Dipstick Normal (Normal); Ketone-Dipstick Negative (Negative); Leukocyte Esterase-Dipstick Negative /ul (Negative); Nitrite-Dipstick Negative (Negative); Occult Blood-Urine 10 /ul (Negative); Protein-Dipstick 15 mg/dl (Negative); Specific Gravity, Urine 1.015 (1.002-1.030); Urine Bilirubin Dipstick Negative (Negative); Urine Clarity Clear (Clear); Urine Urobilinogen Normal (Normal)
[2023-01-09 14:24] LABS: Red Blood Cells-Urine 0-5 SEEN /hpf (0-5); Squamous Epithelial Cells - UA 0-5 SEEN /hpf (5-10)
[2023-01-09 14:25] LABS: Bacteria RARE /hpf (None Seen)
[2023-01-09] MEDS: 0.9% Normal Saline 1,000 ML 150 ML IV ×2 (15:09→21:39)
--- NOTE | 2023-01-09 17:29 | NURSING ---
6510- SENT COMMUNICATION TO DR FLORES REQUESTING PAIN MEDS FOR PT
[2023-01-09] MEDS: Ensure Plus High Protein 120 ML LIQUID PO (17:53)
[2023-01-10 03:15] VITALS: BP 109/64; PULSE 77; RESP 17; TEMP 36.8; O2SAT 95
[2023-01-10] MEDS: 0.9% Normal Saline 1,000 ML 150 ML IV ×3 (04:17→19:29)
[2023-01-10 06:09] LABS: Absolute Lymphocyte Count 3.91 X10^3/uL (0.83-4.51); Basophil# 0.07 X10^3/uL; Basophil% 0.6 % (0-1); Eosinophil# 0.37 X10^3/uL; Eosinophils% 3.3 % (0-5); Hematocrit 31.8 % (37-47); Hemoglobin 10.2 g/dL (12.0-15.0); Lymphocyte # 3.91 X10^3/ul (0.83-4.51); Lymphocyte % 35.2 % (19-41); Mean Corp Hgb Conc 32.1 g/dL (32-36); Mean Corpuscular Hgb 29.9 pg (27.0-32.0); Mean Corpuscular Volume 93.3 fL (81-99); Mean Platelet Vol. 9.1 fl (6.2-12.0); Monocyte% 6.3 % (0-10); NRBC Flagged by Analyzer 0 % (0-5); Neutrophil # 5.99 X10^3/uL (2.7-7.7); Neutrophil % 54.1 % (47-70); Platelet Count 291 K/mm3 (150-450); RBC Distribution Width CV 13.4 % (11.6-14.6); RBC Distribution Width SD 45.7 fl (35.1-43.9); Red Blood Count 3.41 M/mm3 (4.2-5.4); White Blood Count 11.1 K/mm3 (4.4-11.0)
[2023-01-10 06:49] LABS: Anion Gap 6 (5-15); BUN 70 mg/dL (7-18); BUN/Creat Ratio 46.7 RATIO (10-20); Calcium,Total 8.7 mg/dL (8.5-10.1); Chloride 116 mmol/L (98-107); EST Glomerular Filtration Rate 38 mL/min (>60); Est Glom Filt Rate - Afr Amer 46 mL/min (>60); Estimated Creatinine Clearance 40.24 ml/min; Glucose 100 mg/dL (74-106); Potassium 4.8 mmol/L (3.5-5.1); Sodium Level 143 mmol/L (136-145)
[2023-01-10] MEDS: Ensure Plus High Protein 120 ML LIQUID PO ×3 (08:29→18:40)
[2023-01-10 09:15] VITALS: BP 123/71; PULSE 79; RESP 16; TEMP 36.8; O2SAT 97
--- NOTE | 2023-01-10 09:16 | PN.HOSP_ITS ---
Subjective Subjective Feels much better, has had increased urine output and her urine has cleared a little bit Objective Data Objective Data Vital Signs: Vital Signs Temp Pulse Resp BP Pulse Ox O2 Del Method 98.3 F 77 17 109/64 95 Room Air 01/10/23 03:15 01/10/23 03:15 01/10/23 03:15 01/10/23 03:15 01/10/23 03:15 01/10/23 03:15 Oxygen Delivery Method Room Air Weight: 193 lb 6.4 oz Body Mass Index (BMI) 30.2 Intake & Output: Intake and Output for Last 24 Hours 01/09/23 01/10/23 01/11/23 03:59 03:59 03:59 Intake Total 3325 / 3325 1145 / 1145 Balance 3325 / 3325 1145 / 1145 Lab / Micro Data Result Diagrams: 01/10/23 04:40 01/10/23 04:40 Labs: Laboratory Results - last 24 hr 01/09/23 11:05: WBC 13.5 H, RBC 4.48, Hgb 13.6, Hct 40.8, MCV 91.1, MCH 30.4, MCHC 33.3, RDW Std Deviation 44.2 H, RDW Coeff of Tristian 13.2, Plt Count 336, MPV 8.6, Immature Gran % (Auto) 0.700, Neut % (Auto) 64.2, Lymph % (Auto) 25.8, [place] % (Auto) 5.5, Eos % (Auto) 3.3, Baso % (Auto) 0.5, Absolute Neuts (auto) 8.7 H, Absolute Lymphs (auto) 3.48, Nucleated RBC % 0 01/09/23 11:05: Sodium 133 L, Potassium 5.4 H, Chloride 96 L, Carbon Dioxide 21.0, Anion Gap 16 H, BUN 88 H, Creatinine 5.62 H, Estim Creat Clear Calc 10.74, Est GFR (MDRD) Af Amer 10 L, Est GFR (MDRD) Non-Af 8 L, BUN/Creatinine Ratio 15.7, Glucose 118 H, Calcium 9.0 01/09/23 14:07: Urine Color Yellow, Urine Clarity Clear, Urine pH 5.0, Ur Specific [place] 1.015, Urine Protein 15 H, Urine Glucose (UA) Normal, Urine Ketones Negative, Urine Occult Blood 10 H, Urine Nitrite Negative, Urine Bilirubin Negative, Urine Urobilinogen Normal, Ur Leukocyte Esterase Negative, Urine RBC 0-5 SEEN, Urine WBC 0 SEEN, Ur Squamous Epith Cells 0-5 SEEN, Urine Bacteria RARE, Urine Mucus 0 SEEN 01/10/23 04:40: WBC 11.1 H, RBC 3.41 L, Hgb 10.2 L, Hct 31.8 L, MCV 93.3, MCH 29.9, MCHC 32.1, RDW Std Deviation 45.7 H, RDW Coeff of Tristian 13.4, Plt Count 291, MPV 9.1, Immature Gran % (Auto) 0.500, Neut % (Auto) 54.1, Lymph % (Auto) 35.2, [place] % (Auto) 6.3, Eos % (Auto) 3.3, Baso % (Auto) 0.6, Absolute Neuts (auto) 6.0, Absolute Lymphs (auto) 3.91, Nucleated RBC % 0 01/10/23 04:40: Sodium 143, Potassium 4.8, Chloride 116 H, Carbon Dioxide 21.0, Anion Gap 6, BUN 70 H, Creatinine 1.50 H, Estim Creat Clear Calc 40.24, Est GFR (MDRD) Af Amer 46 L, Est GFR (MDRD) Non-Af 38 L, BUN/Creatinine Ratio 46.7 H, Glucose 100, Calcium 8.7 Physical Exam Narrative General: Alert, Oriented x3, Cooperative, No apparent distress HEENT: Atraumatic, PERRLA, EOMI, Normocephalic Oral: 1 mucosa Neck: Supple, No JVD Lungs: Clear to auscultation, Normal air movement, No rhonchi, No wheeze, No rales Cardiovascular: Regular rate, Regular Rhythm, Normal S1, Normal S2, No murmurs Abdomen: Soft, Non Tender, Non-Distended, No Hepato-splenomegaly Extremities: No edema, Capillary Refill Less than 3 Seconds Skin: No rashes, No breakdown Musculoskeletal: No Tenderness to Palpation of Joints or Extremities Neurological: Cranial nerves II-XII grossly intact, Motor Exam 5/5 strength th roughout, Sensory exam intact to light touch and pain Psych/Mental Status: Normal Affect, Appropriate Assessment & Plan Assessment/Plan (1) Dehydration: (2) BRIJESH (acute kidney injury): PLAN: Plan 1. Acute renal failure from dehydration secondary to nausea, vomiting, diarrhea possible gastroenteritis versus medications in conjunction with diarrhea from IBD versus IBS ? Her med list does demonstrate mesalamine and there is a documented history of ulcerative colitis though colonoscopy in July 2022 was negative, she states that she used to be on Asacol but this was discontinued and that her PCP provides her with prednisone on occasion whenever she has diarrhea ? Continue with aggressive fluids ? Hemoglobin is back to baseline at 1.5 ? We will hold her Lasix and her lisinopril ? Stool studies are still pending, would recommend referral to local GI 2. Hypertension ? Blood pressure stable ? She had an echo in 2018 with a normal EF and a stage I diastolic dysfunction ? We will hold her Lasix or lisinopril 3. Anxiety/depression/irritable bowel syndrome ? Stable ? Continue with citalopram 4. GERD ? Stable ? Continue with PPI DVT: SCDs Charges/Coding Visit Charges Inpatient E&M: 44757 Subs Hosp L2
--- NOTE | 2023-01-10 10:40 | CASEMGMT ---
MILO WRIGHT Assessment: Face to Face with pt for initial transition planning/care coordination assessment. RN ADRIANA introduced self and role at [facility], pt voices understanding and consents to assessment. Pt is A/O x4 and answers all questions appropriately at this time. Pt lying in bed in no distress. Care providers, pharmacy, and demographics verified/updated. Admitting Dx: dehydration and BRIJESH PCP:Magdy Specialists:MIKE Colmenares Preferred Pharmacy: [facility] Insurance: [facility] Prescription Benefit: yes LNOK: Noel Croft, Living Arrangements: Pt lives with in a single story home with 3 steps to enter with a rail. Pt reports she is I in ADL's and denies concerns at home. Transportation: Pt drives self and denies concerns with transportation. DME/HHC/SNF: Pt denies having any DME in the home, previous HHC or SNF stays. Pt states no concerns with going home at time of dc. Pt states no further concerns/needs. CM to follow. Advised pt to ask CM if any further question/concerns/needs arise, voices understanding. Pt Goal: Home Plan: Home
[2023-01-10] MEDS: Ondansetron 4 MG/2 ML Vial IV (14:53)
[2023-01-10 14:55] VITALS: BP 140/83; PULSE 91; RESP 16; TEMP 36.8; O2SAT 98
[2023-01-10] MEDS: 0.9% Saline Lock 10 ML Syringe IV (19:29)
[2023-01-10 21:22] VITALS: BP 134/81; PULSE 79; RESP 18; TEMP 36.6; O2SAT 99
[2023-01-11 02:11] VITALS: BP 144/78; PULSE 72; RESP 18; TEMP 36.8; O2SAT 99
[2023-01-11] MEDS: 0.9% Normal Saline 1,000 ML 150 ML IV (02:14)
[2023-01-11 06:52] LABS: Absolute Lymphocyte Count 2.58 X10^3/uL (0.83-4.51); Absolute Neutrophil Count 5.9 X10^3/uL (2.0-7.7); Basophil# 0.06 X10^3/uL; Basophil% 0.6 % (0-1); Eosinophils% 4.2 % (0-5); Hematocrit 33.7 % (37-47); Hemoglobin 10.8 g/dL (12.0-15.0); Lymphocyte # 2.58 X10^3/ul (0.83-4.51); Lymphocyte % 26.8 % (19-41); Mean Corpuscular Hgb 30.3 pg (27.0-32.0); Mean Corpuscular Volume 94.4 fL (81-99); Mean Platelet Vol. 8.8 fl (6.2-12.0); Monocyte# 0.61 X10^3/uL; Monocyte% 6.3 % (0-10); NRBC Flagged by Analyzer 0 % (0-5); Neutrophil # 5.92 X10^3/uL (2.7-7.7); Neutrophil % 61.7 % (47-70); Platelet Count 282 K/mm3 (150-450); RBC Distribution Width CV 13.2 % (11.6-14.6); RBC Distribution Width SD 45.3 fl (35.1-43.9); Red Blood Count 3.57 M/mm3 (4.2-5.4); White Blood Count 9.6 K/mm3 (4.4-11.0)
[2023-01-11] MEDS: Ensure Plus High Protein 120 ML LIQUID PO (07:27)
[2023-01-11 07:37] LABS: Anion Gap 8 (5-15); BUN 18 mg/dL (7-18); BUN/Creat Ratio 30.2 RATIO (10-20); Calcium,Total 9.2 mg/dL (8.5-10.1); Chloride 116 mmol/L (98-107); EST Glomerular Filtration Rate 110 mL/min (>60); Est Glom Filt Rate - Afr Amer 133 mL/min (>60); Glucose 103 mg/dL (74-106); Potassium 4.2 mmol/L (3.5-5.1); Sodium Level 146 mmol/L (136-145)
[2023-01-11 07:38] VITALS: BP 134/86; PULSE 73; RESP 16; TEMP 36.6; O2SAT 97
--- NOTE | 2023-01-11 10:48 | DS.PCM_ITS ---
Providers Date of Admission: 01/09/23 Date of Discharge: 01/11/23 Primary Care Physician: Dr. Gee Curran MD Reason For Visit: DEHYDRATION AND BRIJESH Diagnosis Discharge Diagnosis (1) Dehydration: Status: Acute Code(s): E86.0 - Dehydration (2) BRIJESH (acute kidney injury): Status: Acute Code(s): N17.9 - Acute kidney failure, unspecified Medications at Discharge Home Medications lisinopril 20 mg tablet 20 mg PO QHS BLOOD PRESSURE 02/18/17 amlodipine 10 mg tablet 10 mg PO DAILY BLOOD PRESSURE 07/20/19 furosemide 20 mg tablet 20 mg PO DAILY FLUID 05/25/20 cholecalciferol (vitamin D3) 25 mcg (1,000 unit) tablet 25 mcg PO DAILY SUPPLEMENT 01/09/23 cyanocobalamin (vitamin B-12) 1,000 mcg tablet (Vitamin B-12) 3,000 mcg PO DAILY SUPPLEMENT 01/09/23 duloxetine 60 mg capsule,delayed release 60 mg PO DAILY DEPRESSION 01/09/23 gabapentin 600 mg tablet 600 mg PO TID NERVE PAIN 01/09/23 loperamide 2 mg capsule 2 mg PO DAILY DIARRHEA 01/09/23 multivit with oyebxctl-[id number]-EA-lutein 8 mg iron-400 mcg-300 mcg tablet (Centrum Silver Women) 1 tab PO DAILY HEALTH MAINTENANCE 01/09/23 naproxen sodium 220 mg tablet (Aleve) 440 mg PO BID BACK PAIN 01/09/23 pantoprazole 40 mg tablet,delayed release 40 mg PO DAILY ACID REFLUX 01/09/23 psyllium husk (aspartame) 3.4 gram oral powder packet (Daily Fiber (psyllium- aspartame)) 1 packet PO BID DIARRHEA 01/09/23 zinc acetate 50 mg (zinc) capsule 50 mg PO DAILY SUPPLEMENT 01/09/23 Hospital Course Operations None Procedures None Summary of Care Provided Minutes Spent on Discharge: 45 Hospital Course: Patient is a 57-year-old female with a past medical history as outlined was admitted through the ED on 01/09/2023 with a complaint of weakness. She did have a history of irritable bowel syndrome and not had. Episodes of diarrhea with associated nausea and vomiting. She states she had been told that she had ulcerative colitis as well. Patient had been having nausea and vomiting and diarrhea and had been taking her Lasix and her lisinopril. On admission she was found to have BRIJESH with creatinine over 5 and potassium was also elevated at 5.4. She was admitted and managed for BRIJESH and hyperkalemia which was thought to be due to dehydration in the setting of her still taking her medication. She was hydrated with fluids and BRIJESH resolved. Hyperkalemia also resolved. Patient fe lt much better and she was discharged home on 01/11/2023. 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 Patient seen and examined prior to discharge. She felt well and had no active complaints. She had an uneventful night. Review of systems otherwise negative. Labs and vitals reviewed. Home medication reviewed and reconciled. Physical Exam Const alert, oriented x3 and no apparent distress General Appearance: cooperative and comfortable Exam Limitations: no limitations HEENT normocephalic, head/scalp atraumatic, hearing grossly normal bilaterally and moist oral mucous membranes Mouth: oral and palatal mucosa normal Eyes PERRL, EOMs intact bilaterally and conjunctivae normal Neck no lymphadenopathy, supple and no JVD Resp normal respiratory effort, no retractions, no use of accessory muscles and clear to auscultation bilaterally Cardio regular rate, regular rhythm, S1 normal heart sound, S2 normal heart sound and no murmurs GI normal to inspection, nondistended, normoactive bowel sounds, soft to palpation, non-tender and non-distended Extremity normal to inspection, full ROM and no clubbing, cyanosis or edema Skin no rashes or lesions noted and no wounds Neuro oriented x3, CN's II-XII intact bilaterally, moves all extremities and no focal motor deficits Sensorium / Orientation: awake and alert Motor Exam: strength 5/5 throughout Psych affect normal Weight / BMI Weight Weight: 193 lb 6.4 oz Body Mass Index (BMI) 30.2 ABG / Lab / Microbiology Data Result Diagrams: 01/11/23 05:56 01/11/23 05:56 Laboratory: Laboratory Results - last 24 hr 01/11/23 05:56: WBC 9.6, RBC 3.57 L, Hgb 10.8 L, Hct 33.7 L, MCV 94.4, MCH 30.3, MCHC 32.0, RDW Std Deviation 45.3 H, RDW Coeff of [place]ist[place] 13.2, Plt Count 282, MPV 8.8, Immature Gran % (Auto) 0.400, Neut % (Auto) 61.7, Lymph % (Auto) 26.8, [place] % (Auto) 6.3, Eos % (Auto) 4.2, Baso % (Auto) 0.6, Absolute Neuts (auto) 5.9, Absolute Lymphs (auto) 2.58, Nucleated RBC % 0 01/11/23 05:56: Sodium 146 H, Potassium 4.2, Chloride 116 H, Carbon Dioxide 22.0, Anion Gap 8, BUN 18, Creatinine 0.60, Estim Creat Clear Calc 100.60, Est GFR (MDRD) Af Amer 133, Est GFR (MDRD) Non-Af 110, BUN/Creatinine Ratio 30.2 H, Glucose 103, Calcium 9.2 Microbiology: Microbiology 01/10/23 13:00 Stool Enteric Bacteriology - Final D/C Instructions Discharge Diet: Low fat / Low cholesterol Discharge Activity: Return to Normal Activity Weight Bearing Status: Weight bearing as tolerated Call your doctor if you observe: Fever of 101 or Higher, Shortness of breath, Dizziness, Swelling in the ankles and - (uncontrolled diarrhea) Meaningful Use Info Meaningful Use Diagnoses (Choose all that apply): None applicable Discharge Plan Admission Admit Date/Time: 01/09/23 12:26 Primary Reason for Your Visit: BRIJESH, diarrhea Attending Provider: Michelle Richter Primary Care Provider: Gee Curran Consulting Providers: Jose Hinojosa Instructions Patient Instructions: ED Diarrhea, Viral (Adult) Discharge Orders/Prescriptions Prescriptions: Continued lisinopril 20 MG tablet 20 mg PO QHS amlodipine 10 MG tablet 10 mg PO DAILY furosemide 20 MG tablet 20 mg PO DAILY gabapentin 600 mg tablet 600 mg PO TID cyanocobalamin (vitamin B-12) [Vitamin B-12] 1,000 mcg Tablet 3,000 mcg PO DAILY naproxen sodium [Aleve] 220 mg Tablet 440 mg PO BID duloxetine 60 mg capsule,delayed release(DR/EC) 60 mg PO DAILY Daily Fiber (psyllium-aspart) 3.4 gram powder in packet 1 packet PO BID Centrum Silver Women 8 mg iron-400 mcg-300 mcg Tablet 1 tab PO DAILY loperamide 2 MG capsule 2 mg PO DAILY pantoprazole 40 MG tablet,delayed release (DR/EC) 40 mg PO DAILY zinc acetate 50 mg (zinc) Capsule 50 mg PO DAILY cholecalciferol (vitamin D3) 25 mcg (1,000 unit) Tablet 25 mcg PO DAILY Referrals / Follow Up: Gee Curran MD [Primary Care Provider] - Within 2 Weeks Disposition Disposition (needs filled in before D/C Order can be placed): Home, Self Care Charges/Coding Visit Charges Inpatient E&M: 43321 Disch Hosp >30min
== END 2023-01-11 10:50 | disposition home or self-care (01) | DRG 684 ==
LOC: ED 12:31 → MS3 12:43
PROVIDERS: Admitting Provider Family Medicine; Emergency Provider Emergency Medicine; PCP Family Medicine; Visit Provider Student in an Organized Health Care Education/Training Program
DX: N17.9 Acute kidney failure, unspecified (principal); E78.00 Pure hypercholesterolemia, unspecified; E86.0 Dehydration; F17.210 Nicotine dependence, cigarettes, uncomplicated; I10 Essential (primary) hypertension; K21.9 Gastro-esophageal reflux disease without esophagitis; E87.5 Hyperkalemia; K58.0 Irritable bowel syndrome with diarrhea; R11.2 Nausea with vomiting, unspecified; F32.A Depression, unspecified; Z80.0 Family history of malignant neoplasm of digestive organs
CPT/HCPCS: 36415; 80048; 81001; 85025; 87506; 93005; 97802; 99284; J7030; A4216; J2405

== ENCOUNTER → 2023-06-09 | Outpatient (CLI) | payer OTHER, SELFPAY ==
--- NOTE | 2023-06-09 16:29 | US_ITS ---
INDICATION: MASS IN NECK EXAMINATION: Ultrasound US Head/Neck Soft Tissue TECHNIQUE: Johnson scale and color doppler imaging was performed of the neck with standard protocol. Grayscale and color imaging obtained. COMPARISON: No pertinent previous for comparison.. FINDINGS: RIGHT THYROID LOBE: Thyroid is not included on current exam. LEFT THYROID LOBE: There is not included on current exam. ISTHMUS: Not included. Evaluation of the anterior cervical triangle at the level of the thoracic inlet documents a 2.0 x 3.3 x 0.6 cm mass at the level of the right clavicular head. There is central fluid collection with findings consistent with diffuse septation or echogenic debris. There is small amount of peripheral blood flow. The remaining visualized muscular fascial planes at the cervicothoracic junction and lower neck have normal appearance. No other evidence of masses or adenopathy. Internal blood flow noted. US/Head/Neck Soft Tissue IMPRESSION: . 1. Soft tissue/fluid accumulation at the level of the RIGHT sternoclavicular joint. This does extend to the level of the RIGHT sternoclavicular joint. This may represent inflammatory phlegmon secondary to RIGHT sternoclavicular joint inflammatory arthropathy. Complex synovial cyst is additional consideration. There is mild hyperemia, and acute infectious processes and septic arthritis of the RIGHT sternoclavicular joint are considerations. Electronically Signed: Epi Cervantes MD at 2:46 EDT ,
== END | disposition home or self-care (01) ==
LOC: US 16:28
PROVIDERS: PCP Family Medicine; Referring Provider Nurse Practitioner Family; Visit Provider Nurse Practitioner Family
DX: R22.1 Localized swelling, mass and lump, neck (principal)
CPT/HCPCS: 76536

== ENCOUNTER → 2025-05-20 | Outpatient (CLI) | payer BC, SELFPAY ==
[2025-05-20 16:23] LABS: Lyme Scn Total Ab w/Rflx REF LAB
[2025-05-20 17:08] LABS: Hematocrit 37.1 % (37-47); Hemoglobin 12.6 g/dL (12.0-15.0); Immature Granulocytes Count 0.050 X10^3/uL (0.0-0.0); Mean Corp Hgb Conc 34.0 g/dL (32-36); Mean Corpuscular Volume 87.9 fL (81-99); Mean Platelet Vol. 8.4 fl (6.2-12.0); NRBC Flagged by Analyzer 0 % (0-5); POSITIVE DIFFERENTIAL YES; POSITIVE MORPHOLOGY YES; Platelet Count 410 K/mm3 (150-450); RBC Distribution Width CV 13.3 % (11.6-14.6); RBC Distribution Width SD 42.5 fl (35.1-43.9); Red Blood Count 4.22 M/mm3 (4.2-5.4); White Blood Count 13.8 K/mm3 (4.4-11.0)
[2025-05-20 17:10] LABS: Differential Indicated SCAN CRITERIA MET
[2025-05-20 18:05] LABS: CPK Total, Creatine Kinase 51 U/L (24-195)
[2025-05-20 18:32] LABS: CRP 23.80 mg/L (0.0-3.0); LDH 232 U/L (84-246)
[2025-05-20 18:41] LABS: AST(SGOT) 17 U/L (<=31); Alanine Aminotransfer ALT/SGPT 14 U/L (<=34); Albumin, Serum 3.9 g/dL (3.4-4.8); Alkaline Phosphatase 94 U/L (35-104); Anion Gap 14 (5-15); BUN 8 mg/dL (4-19); BUN/Creat Ratio 10.6 RATIO (10-20); Calcium,Total 9.0 mg/dL (7.6-11.0); Carbon Dioxide 20.8 mmol/L (21.0-32.0); Chloride 104 mmol/L (98-108); Ferritin 37 ng/mL (22-378); Globulin 3.1 g/dL (2.2-4.2); Glucose 92 mg/dL (70-99); Potassium 3.3 mmol/L (3.3-5.1); Vitamin B12 > 4000 pg/mL (180-914)
[2025-05-25 12:09] LABS: Egg, White <0.10 kU/L (Class 0); SCALLOP <0.10 kU/L (Class 0); SESAME SEED <0.10 kU/L (Class 0); Vitamin D 1,25-Dihydroxy 23.9 pg/mL (24.8-81.5); Walnut, (Food) <0.10 kU/L (Class 0)
== END | disposition home or self-care (01) ==
LOC: LAB 16:18
PROVIDERS: PCP Family Medicine; Referring Provider Internal Medicine Gastroenterology; Visit Provider Internal Medicine Gastroenterology
DX: K51.90 Ulcerative colitis, unspecified, without complications (principal); G89.29 Other chronic pain
CPT/HCPCS: 36415; 80053; 82085; 82164; 82390; 82550; 82607; 82652; 82728; 82784; 82785; 82941; 83516; 83615; 84165; 84443; 85025; 85652; 86003; 86036; 86037; 86140; 86334; 86618; 86671; 87070; 87075; 87077; 87186; 87205

== ENCOUNTER 2025-07-15 07:58 | Day surgery (SDC) | payer BC, SELFPAY ==
[2025-07-15] VITALS (8 sets, daily range): BP systolic 111–135; BP diastolic 79–96; PULSE 73–87; RESP 16–18; TEMP 36.2–36.5; O2SAT 96–100; BMI 30.7
--- NOTE | 2025-07-15 08:02 | PCM.PRE.AN2 ---
ASA Classification* ASA Classification ASA Classification: 2 Assessment & Plan Anesthesia* Anesthesia Assessment Anesthesia Assessment: Discussed sedation and/or anesthesia options, risks, benefits, and alternatives with patient/parents/legal guardian/POA. Questions invited. The patient/parents/legal guardian/POA seems to understand and agrees to proceed with anesthesia plan. Reviewed the physical assessment, medical history, allergy history and patient home medications list prior to surgery/procedure/anesthetic and documented any changes. Performed airway and anesthesia risk assessments. Anesthesia Type Anesthesia Type: MAC Anesthesia Focused Assessment* Airway Assessment Mouth opens: >3 cm Mallampati Score: II Labs Anesthesia Preop lab: CBC WBC, (4.4-11.0) 13.8 K/mm3 H 05/20/25, 16: RBC, (4.2-5.4) 4.22 M/mm3 05/20/25, 16:22 Hgb, (12.0-15.0) 12.6 g/dL 05/20/25, 16: Hct, (37-47) 37.1 % 05/20/25, 16: Plt Count, (150-450) 410 K/mm3 05/20/25, 16:22 CHEMISTRY Potassium, (3.3-5.1) 3.3 mmol/L 05/20/25, 16:22 Sodium, (133-145) 138 mmol/L 05/20/25, 16:22 Magnesium, (1.8-2.4) 2.0 mg/dL 02/19/17, 05:24 BUN, (4-19) 8 mg/dL 05/20/25, 16:22 Creatinine, (0.70-1.20) 0.73 mg/dL 05/20/25, 16:22 Glucose, (70-99) 92 mg/dL 05/20/25, 16:22 TSH, (0.300-4.200) 3.270 uIU/mL 05/20/25, 16:22 COAG Pre-Assessment Diagnosis/Proposed Procedure Planned Operative Procedure(s): COLONOSCOPY Anesthesia History Anesthesia History - finish photographer: Anesthesia History - finish photographer Hx Hospitalization No 07/13/25 08:47 Any Problems With Anesthesia No 07/13/25 08:47 Cholinesterase deficiency No 07/13/25 08:47 You/Your Family Experience No 07/13/25 08:47 fever (hyperthermia) with Relationship Recent Exposure to Contagious Disease Does patient have nerve No 07/13/25 08:47 stimulator Patient instructed to have device shut off --Does patient have Pacemaker or ICD? When Was Last Pacemaker Check QUESTION #4 FULL TEXT: You/Your Family Experience fever (hyperthermia) with Anesthesia Last Oral Intake Last Oral intake: Last Oral Intake NPO since Meds taken in AM with sips of water? Meds patient instructed to take am of surgery PONV PONV - finish photographer: PONV - finish photographer Female Yes 07/13/25 08:47 HX of Motion Sickness No 07/13/25 08:47 HX of N/V After Surgery No 07/13/25 08:47 Non-Smoker No 07/13/25 08:47 Duration of Surgery greater No 07/13/25 08:47 than 60 minutes Number of Risk Factors 1 07/13/25 08:47 PONV Score Low Risk 07/13/25 08:47 Height & Weight Height & Weight: Anesthesia: Height & Weight Height 5 ft 7 in 01/10/23 13:57 Respiratory Assessment Respiratory Assessment - finish photographer: Respiratory Tract Infection Hx - finish photographer Hx Respiratory Tract Infection No 07/13/25 08:47 STOP Sleep Apnea STOP Sleep Apnea - finish photographer: STOP Sleep Apnea - finish photographer Hx Hypertension Yes: CONTROLLED ON MED 07/13/25 08:47 Hx Sleep Apnea No 07/13/25 08:47 CPAP BIPAP Do you snore loudly (louder No 07/13/25 08:47 than talking or can be heard Do you often feel tired/ No 07/13/25 08:47 fatigued/ sleepy during daytime? Has anyone observed you stop No 07/13/25 08:47 breathing during sleep? STOP Results Negative 07/13/25 08:47 QUESTION #5 FULL TEXT : Do you snore loudly (louder than talking or can be heard through closed doors)? Tobacco Use History Tobacco Use History - finish photographer: Tobacco Use History - finish photographer Tobacco Use Smoking Status Current every day smoker 07/13/25 08:47 Hx Tobacco Use Yes 07/13/25 08:47 Years Smoking Packs Smoked per Day Smoking Cessation Date was within the last 15 years Hx Smoking Cessation Date Hx Smoking Cessation No 07/13/25 08:47 Counseling Hematologic Medial History Hematologic Hx - finish photographer: Hematologic Medical Hx - record tester Hx of Blood Transfusion No 07/13/25 08:47 Hx of Transfusion in last 3 No 07/13/25 08:47 Months Date of Last Transfusion (if within last 3 months) Ever experience any problems No 07/13/25 08:47 with transfusion(s)? Specify any problems Hx of Preganancy in last 3 No 07/13/25 08:47 Months Nurse Filling Out Transfusion VCHRISTIN 07/13/25 08:47 & Questions: Date: 07/13/25 07/13/25 08:47 Time: 08:49 07/13/25 08:47 Patient unable to answer at this time (ie. confused, unrespo /Reproduction History /Reproductive History - finish photographer: /Reproductive Hx- finish photographer Hx Now No 07/13/25 08:47 Gestational Age (in weeks): EDC: Hx Hx Para Hx Section SAB No 07/13/25 08:47 PFS Medical History Post-menopausal History of steroid therapy Arthritis Fatty liver Back pain Syncope Gastric reflux Smoker Hoarseness History of echocardiogram Hypertension Substance abuse Anxiety History of IBS Home Medications ?Medication ?Instructions ?Recorded ?Last Taken ?Type amlodipine 10 mg tablet 10 mg PO DAILY BLOOD PRESSURE 07/20/19 01/09/23 History cyanocobalamin (vitamin B-12) 3,000 mcg PO DAILY SUPPLEMENT 01/09/23 01/09/23 History 1,000 mcg tablet (Vitamin B-12) gabapentin 600 mg tablet 600 mg PO TID NERVE PAIN 01/09/23 01/09/23 05:00 History [id number] 8 mg-folic 400 1 tab PO DAILY HEALTH MAINTENANCE 01/09/23 01/09/23 History mcg-K 50 mcg-lutein 300 mcg tablet (Centrum Silver Women) pantoprazole 40 mg tablet,delayed 40 mg PO DAILY ACID REFLUX 01/09/23 01/09/23 History release escitalopram oxalate 5 mg tablet 5 mg PO QDAY 05/20/25 Unknown History (Lexapro) potassium chloride 10 mEq 10 meq PO DAILY 07/13/25 Unknown History capsule,extended release Allergy/AdvReac Type Severity Reaction Status Date / Time sulfadiazine Allergy Rash Verified 07/13/25 08:35 Family History Other Colon cancer Heart disease Surgical History Hx of colonoscopy Social History Smoking Status: Current every day smoker tobacco type: cigarettes Review of Systems (Anesthesia) ROS Narrative System reviewed and no additional complaints, except as documented.
--- OUTSIDE RECORDS SUMMARY | 2025-07-15 08:18 | XMS RPT_ITS | CCD ---
Author Organization [facility] ion Partnership [facility] Care Team Providers Care Post Doctoral Researcher Name Role Phone France Gunn Attending Unavailable Khadijah Curran Primary Care Unavailable France Gunn Attending Unavailable Khadijah Curran Primary Care Unavailable France Gunn Attending Unavailable Khadijah Curran Primary Care Unavailable France Gunn Admitting Unavailable France Gunn Attending Unavailable Khadijah Curran Primary Care Unavailable France Gunn Attending Unavailable Khadijah Curran Primary Care Unavailable France Gunn Admitting Unavailable Khadijah Curran Admitting Unavailable Khadijah Curran Attending Unavailable Khadijah Curran Primary Care Unavailable Khadijah Curran MD Primary Care Provider Khadijah Curran MD Primary Care Provider Khadijah Curran Unavailable [phone] Unavailable Unavailable Khadijah Curran MD Primary Care Provider MAGDALENO WHITE Attending Unavailable Khadijah Curran Referring Unavaila Khadijah Moore Primary Care UnavailKhadijah Frederick MD Primary Care Provider Glo Amezcua MD Primary Care Pro vider GLO AMEZCUA MOUNIR Primary Care Magda vailable SEVEN, GLO TUTTLE MOUNIR Attending Magda vailable SEVEN, GLO TESFAYE MOUNIR Referring Magda vailable SEVEN, GLO TESFAYE MOUNIR Primary Care Magda vailable SEVEN, GLO TUTTLE MOUNIR Attending Magda vailable SEVEN, GLO TESFAYE MOUNIR Referring Magda vailable KHADIJAH CURRAN Primary Care Unavailable ZHOU ALANIS Attending Unavailable Dr. Khadijah Curran Primary Care Provider [phone] Dr. Tyrel Denny Emergency Provider Dr. Jose Hinojosa Admit Provider Dr. Jose Hinojosa Attending Provider Dr. Jose Hinojosa Other Provider MERHEB, MARY Consulting Unavailable GHULAM KIRK Admitting Unavailable JOSH BLANKENSHIP JR Attending Unavaila ble KHADIJAH CURRAN Primary Care Unavailable Magdaleno White Attending Unavailable Dr. Khadijah Curran Primary Care Unav ailable Magdy, Dr. Khadijah Saba Referring Unav ailable Ramsey Whitee Admitting Unavailable Seven MACIEL, Glo Tesfaye Mounir Unavailable Seven MACIEL, Glo Tesfaye Mounir Unavailable SEVEN, GLO TESFAYE MOUNIR Referring Magda vailable SEVEN, GLO TESFAYE MOUNIR Primary Care Magda vailable SEVEN, GLO TESFAYE MOUNIR Attending Magda vailable SEVEN, GLO TESFAYE MOUNIR Admitting Magda vailable SEVEN, GLO TESFAYE MOUNIR Primary Care Magda vailable SEVEN, GLO TESFAYE MOUNIR Admitting Magda vailable SEVEN, GLO TESFAYE MOUNIR Primary Care Magda vailable SEVEN, GLO TESFAYE MOUNIR Primary Care Magda vailable GHULAM HALL Admitting Unavaila ble GHULAM HALL Referring Unavaila ble SEVEN, GLO TESFAYE MOUNIR Primary Care Magda vailable SEVEN, GLO TESFAYE MOUNIR Attending Magda vailable SEVEN, GLO TESFAYE MOUNIR Primary Care Magda vailable ELBA NOBLE Attending Unavailable SEVEN, GLO TESFAYE MOUNIR Primary Care Magda vailable SEVEN, GLO TESFAYE MOUNIR Attending Magda vailable SEVEN, GLO TESFAYE MOUNIR Attending Magda vailable SEVEN, GLO TUTTLE MOUNIR Primary Care Magda vailable SEVEN, GLO TUTTLE MOUNIR Primary Care Magda vailable GHULAM HALL Attending Unavaila marbella Curran MD, Khadijah Kline Primary Care Provider [place] HUMAN RESOURCES LEADER.SLITTER OPERATOR, Viki Unavailable Jose Maria HUMAN RESOURCES LEADER.SLITTER OPERATOR, Mathieu Unavailable [place] HUMAN RESOURCES LEADER.SLITTER OPERATOR, Viki Unavailable Unavail able [place] HUMAN RESOURCES LEADER.SLITTER OPERATOR, Viki Unavailable Magdy MACIEL, Dr. Flynn Primary Care Provider Dr. Khadijah Curran MD Referring Provider [phone] Robi LOPEZ Attending Provider Friend Dr. Robi LOPEZ Referring Provider KHADIJAH CURRAN Primary Care Unavailable KHADIJAH CURRAN Referring Unavailable KHADIJAH CURRAN Attending Unavailable KHADIJAH CURRAN Primary Care Unavailable KHADIJAH CURRAN Referring Unavailable KHADIJAH CURRAN Attending Unavailable KHADIJAH CURRAN Primary Care Unavailable FriendRobi Attending Unavailable Khadijah Curran Primary Care Unavailable Khadijah Curran Referring Unavailable FriendRobi Attending Unavailable FriendRobi Referring Unavailable Khadijah Curran Primary Care Unavailable FriendRobi Attending Unavailable Khadijah Curran Primary Care Unavailable Allergies Allergy Classification Reported Allergen(s) Allergy Type Date of Onset Reaction(s) Facility (7 sources) sulfaSALAzine; Translations: [Azulfidine] Drug Allergy [facility] Repository (1 source) Sulfonamides (Antibiotic); Translations: [sulfa drugs] Propensity to adverse reactions to drug (disorder) [facility] Repository (20 sources) buPROPion; Translations: [BUPROPION HCL] Drug Allergy 9 GI Upset [facility] (20 sources) sulfaSALAzine; Translations: [SULFASALAZINE] Drug Allergy 7 [facility] (4 sources) sulfADIAZINE Drug Allergy 3 [facility] (1 source) sulfADIAZINE Drug Allergy 5 [facility] Repository Medications Current Medications Medication Drug Class(es) Dates Sig (Normalized) Sig (Original) amLODIPine 10 mg oral tablet (20 sources) Dihydropyridine Calcium Channel Michelle Start: 06-29-2021 amLODIPine Besylate 10 MG Oral Tablet Quantity: 30 Refills: 0 Ordered: 19-Feb-2022 DO Start : 29-Jun-2021 Active Start: 07-20-2019 End: 01-24-2025 take 1 tablet by mouth once daily amLODIPine (NORVASC) 10 mg tablet Indications: Essential hypertension Take 1 tablet by mouth once daily. 90 tablet 1 01/24/2025 Active Comment on above: Take 1 tablet by radha once daily. cefdinir 300 mg oral capsule (2 sources) Cephalosporin Antibacterial Start: End: take 1 capsule by mouth twice daily cefdinir (OMNICEF) 300 mg capsule Take 1 capsule by mouth twice daily for 7 days. 14 capsule 0 01/19/2023 01/26/2023 Active Comment on above: Take 1 capsule by mo [facility] twice daily for 7 days. cyclobenzaprine hydrochloride 10 mg oral tablet (11 sources) Muscle Relaxant Start: End: take 1 tablet by mouth three times daily as needed for muscle spasms cyclobenzaprine (FLEXERIL) 10 mg tablet Indications: Chronic midline low back pain, unspecified whether sciatica present Take 1 tablet by mouth three times a day as needed for muscle spasm. 60 tablet 2 05/27/2025 Active escitalopram 5 mg oral tablet (20 sources) Serotonin Reuptake Inhibitor Start: take 1 tablet by mouth once daily Escitalopram Oxalate (Lexapro) 5 mg tablet Active 5 mg PO daily May 20, 2025 12:00am Start: 12-31-2024 take 1 tablet by radha th once daily escitalopram oxalate (LEXAPRO) 10 mg tablet Indications: Anxiety and depression Take 1 tablet by mouth once daily. 90 tablet 3 12/31/2024 Active Start: 11-28-2023 End: 12-31-2024 take 1 tablet by mouth once daily escitalopram oxalate (LEXAPRO) 5 mg tablet Indications: Anxiety and depression Take 1 tablet by mouth once daily. 30 tablet 11 05/27/2024 12/31/2024 Discontinued Comment on above: Take 1 tablet by radha th once daily. famotidine 40 mg oral tablet (3 sources) Histamine-2 Receptor Antagonist take 1 tablet by mouth once daily famotidine (PEPCID) 40 MG tablet Take 1 (one) tablet (40 mg total) by mouth daily . 0 Active furosemide 20 mg oral tablet (20 sources) Loop Diuretic Start: 0 End: 3 take 1 tablet by mouth once daily Furosemide 20 MG tablet Active 20 mg PO DAILY May 25, 2020 12:00am FLUID Comment on above: Take 1 tablet by radha th once daily. gabapentin 600 mg oral tablet (20 sources) Anti-epileptic Agent Start: 3 End: 3 take 1 capsule by mouth three times daily gabapentin (NEURONTIN) 300 MG capsule Indications: Back pain, unspecified back location, unspecified back pain laterality, unspecified chronicity Take 1 (one) capsule (300 mg total) by mouth 3 (three) times a day for 10 days . 30 capsule 0 05/06/2023 Active Start: 02-25-2023 End: 05-06-2023 take 3 capsules by mouth three times daily gabapentin (NEURONTIN) 300 MG capsule Indications: Back pain, unspecified back location, unspecified back pain laterality, unspecified chronicity Take 3 (three) capsules (900 mg total) by mouth 3 (three) times a day . 270 capsule 0 02/25/2023 05/06/2023 Discontinued Start: 02-01-2022 End: 07-31-2025 take 1 tablet by mouth three times daily gabapentin (NEURONTIN) 600 mg tablet Indications: Back pain, unspecified back location, unspecified back pain laterality, unspecified chronicity , Left sided abdominal pain Take 1 tablet by mouth three times a day for 90 days. 90 tablet 2 05/02/2025 07/31/2025 Active Start: 02-01-2022 Gabapentin 600 MG Oral Tablet Quantity: 90 Refills: 0 Ordered: 27-Feb-2022 DO Start : 01-Feb-2022 Active Start: 09-25-2017 take 1 capsule by mo [facility] three times daily gabapentin (NEURONTIN) 300 MG capsule Take 1 (one) capsule (300 mg total) by mouth 3 (three) times a day . 0 09/25/2017 Active Comment on above: Take 1 tablet by rahda three times daily for 90 days. Take 1 tablet by radha three times a day for 90 days. lisinopril 10 mg oral tablet (20 sources) Angiotensin Converting Enzyme Inhibitor Start: take 1 tablet by mouth once daily lisinopril (ZESTRIL) 10 mg tablet Indications: Essential hypertension Take 1 tablet by mouth once daily. 90 tablet 3 12/31/2024 Active Start: 12-04-2021 Lisinopril 20 MG Oral Tablet Quantity: 30 Refills: 0 Ordered: 12-Mar-2022 DO Start : 04-Dec-2021 Active Start: 02-18-2017 End: 05-20-2025 take 1 tablet by mouth at bedtime Lisinopril 20 MG tablet Discontinued 20 mg PO AT BEDTIME February 18, 2017 12:00am May 20, 2025 3:37pm BLOOD PRESSURE Comment on above: Take 1 tablet by radha once daily. meloxicam 15 mg oral tablet (15 sources) Nonsteroidal Anti-inflammatory Drug Start: 12-24-19 End: 01-05-20 take 1 tablet by mouth once daily as needed meloxicam (MOBIC) 15 mg tablet Indications: Arthritis of right sternoclavicular joint Take 1 tablet by mouth once daily as needed. With a meal 30 tablet 5 07/09/2023 01/05/2024 Active Comment on above: Take 1 tablet by radha once daily as needed. With a meal mesalamine 1200 mg delayed release oral tablet (20 sources) Aminosalicylate Start: 05-06-20 End: 11-02-19 take 1 tablet by mouth twice daily mesalamine (LIALDA) 1.2 g EC tablet Indications: Ulcerative colitis with complication, unspecified location (HCC) Take 1 (one) tablet (1.2 g total) by mouth 2 (two) times a day . 180 tablet 1 05/06/2023 11/02/2023 Active Start: 01-18-2023 End: 06-29-2025 take 2 tablets by mouth once daily at breakfast Mesalamine (LIALDA) 1.2 gram EC tablet Indications: Ulcerative pancolitis without complication (HCC) , Colitis Take 2 tablets by mouth daily with breakfast. 60 tablet 5 12/31/2024 06/29/2025 Active Comment on above: Take 2 tablets by mo [facility] daily with breakfast. metroNIDAZOLE 500 mg oral tablet (2 sources) Nitroimidazole Antimicrobial Start: 01-19-20 End: 01-26-20 take 1 tablet by mouth three times daily metroNIDAZOLE (FLAGYL) 500 mg tablet Take 1 tablet by mouth three times daily for 7 days. (Starting with one tablet this evening) 22 tablet 0 01/18/2023 01/25/2023 Active Comment on above: Take 1 tablet by radha three times daily for 7 days. (Starting with one tablet this evening) Pbozvbnz-Yub-Olta-Fa- Lutein (Centrum Silver Women) 8 mg iron-400 mcg-300 mcg Tablet (1 source) Start: 01-10-20 take 1 tablet by mouth once daily Sgblofym-Xmg-Aqnh-Fa -Lutein (Centrum Silver Women) 8 mg iron-400 mcg-300 mcg Tablet Active 1 TABLET PO DAILY January 09, 2023 12:00am Dxxaulyn-Kqm-Vkzf-Fa- Vit K-Lut (Centrum Silver Women) 8 mg iron-400 mcg-300 mcg Tablet (3 sources) Start: 01-10-20 Vhbbaejy-Nhm-Iypm-Fa -Vit K-Lut (Centrum Silver Women) 8 mg iron-400 mcg-300 mcg Tablet Active 1 {tbl} PO DAILY January 09, 2023 12:00am HEALTH MAINTENANCE Start: 01-09-2023 take 1 tablet by radha once daily Sonuezbd-Czm-Riip-Fa-Vit K-Lut (Centrum Silver Women) 8 mg iron-400 mcg-300 mcg Tablet Active 1 TABLET PO DAILY January 09, 2023 12:00am naproxen sodium 220 mg oral tablet (4 sources) Nonsteroidal Anti-inflammatory Drug Start: 01-09-2023 take 2 tablets by mouth twice daily Naproxen Sodium (Aleve) 220 mg Tablet Active 440 mg PO TWICE A DAY January 09, 2023 12:00am BACK PAIN ondansetron 4 mg disintegrating oral tablet (20 sources) Serotonin-3 Receptor Antagonist Start: 10-23-2022 End: 11-02-2022 take 1 tablet by mouth every eight hours as needed for nausea and nausea ondansetron orally disintegrating (ZOFRAN ODT) 4 mg disintegrating tablet Indications: Nausea Take 1 tablet by mouth every 8 hours as needed for nausea/vomiting for up to 10 days. 30 tablet 1 10/23/2022 11/02/2022 Active Start: 03-16-2022 Ondansetron 4 MG Oral Tablet Disintegrating Quantity: 9 Refills: 0 Ordered: 16-Mar-2022 DO Start : 16-Mar-2022 Active Start: 02-21-2022 End: 07-16-2022 take 1 tablet by mouth every six hours as needed for nausea ondansetron orally disintegrating (ZOFRAN ODT) 4 mg disintegrating tablet Indications: Nausea , Suspected COVID-19 virus infection Take 1 tablet by mouth every 6 hours as needed for nausea/vomiting. 30 tablet 0 07/16/2022 Active Comment on above: Take 1 tablet by radha th every 6 hours as needed for nausea/vomiting. Take 1 tablet by radha th every 8 hours as needed for nausea/vomiting for up to 10 days. pantoprazole 40 mg delayed release oral tablet (20 sources) Proton Pump Inhibitor Start: 11-27-2021 Pantoprazole Sodium 40 MG Oral Tablet Delayed Release Quantity: 30 Refills: 0 Ordered: 19-Feb-2022 DO Start : 27-Nov-2021 Active Start: 02-20-2017 End: 12-27-2024 take 1 tablet by mouth once daily pantoprazole DR (PROTONIX) 40 mg tablet Take 1 tablet by mouth once daily. 30 tablet 11 12/27/2024 Active Comment on above: Take 1 tablet by radha th daily before breakfast. Take on empty stomach, 1/2 hr before meal. TAKE 1 TABLET BY RADHA TH DAILY BEFORE BREAKFAST. TAKE 1/2 HOUR BEFORE MEAL PARoxetine hydrochloride 10 mg oral tablet (4 sources) Serotonin Reuptake Inhibitor Start: 3 End: 4 take 1 tablet by mouth once daily PARoxetine (PAXIL) 10 mg tablet Indications: Anxiety with depression Take 1 tablet by mouth once daily. 30 tablet 2 07/09/2023 01/05/2024 Active Comment on above: Take 1 tablet by radha th once daily. potassium chloride 10 meq extended release oral tablet (3 sources) Start: 4 End: 4 take 1 tablet by mouth twice daily potassium chloride (KLOR-CON 10) 10 mEq tablet Indications: Hypokalemia Take 1 tablet by mouth two times a day. 60 tablet 2 12/01/2023 02/29/2024 Active Comment on above: Take 1 tablet by radha two times a day. predniSONE 10 mg oral tablet (18 sources) Start: End: predniSONE (DELTASONE) 10 mg tablet Indications: Ulcerative pancolitis without complication (HCC) , Colitis Take 4 tabs daily x5 days, then 2 tabs daily for 5 days, then 1 tab daily for 5 days. 35 tablet 05/27/2025 06/09/2025 Active Start: 01-17-2025 End: 01-30-2025 predniSONE (DELTASONE) 10 mg tablet Indications: Ulcerative pancolitis without complication (HCC) , Colitis Take 4 tabs daily x5 days, then 2 tabs daily for 5 days, then 1 tab daily for 5 days. 35 tablet 01/17/2025 01/30/2025 Start: 12-31-2024 End: 01-15-2025 predniSONE (DELTASONE) 10 mg tablet Indications: Ulcerative pancolitis without complication (HCC) , Colitis Take 4 tabs daily x5 days, then 2 tabs daily for 5 days, then 1 tab daily for 5 days. 35 tablet 12/31/2024 01/15/2025 Discontinued Start: 11-28-2023 End: 12-07-2023 predniSONE (DELTASONE) 10 mg tablet Indications: Ulcerative pancolitis without complication (HCC) Take 4 tabs daily for 3 days, then 2 tabs daily for 3 days, then 1 tab daily for 3 days with food. 21 tablet 0 11/28/2023 12/07/2023 Active Start: 08-22-2023 End: 09-06-2023 predniSONE (DELTASONE) 10 mg tablet Indications: Ulcerative pancolitis without complication (HCC) Take 4 tabs daily x5 days, then 2 tabs daily for 5 days, then 1 tab daily for 5 days. 35 tablet 1 08/22/2023 09/06/2023 Active Start: 06-10-2023 End: 06-25-2023 predniSONE (DELTASONE) 10 mg tablet Indications: Ulcerative pancolitis without complication (HCC) Take 4 tabs daily x5 days, then 2 tabs daily for 5 days, then 1 tab daily for 5 days. 35 tablet 1 06/10/2023 06/25/2023 Active Start: 10-29-2022 End: 11-13-2022 predniSONE (DELTASONE) 10 mg tablet Indications: Ulcerative pancolitis without complication (HCC) Take 4 tabs daily x5 days, then 2 tabs daily for 5 days, then 1 tab daily for 5 days. 35 tablet 1 10/29/2022 11/13/2022 Active Start: 09-05-2022 End: 09-20-2022 predniSONE (DELTASONE) 10 mg tablet Indications: Ulcerative pancolitis without complication (HCC) Take 4 tabs daily x5 days, then 2 tabs daily for 5 days, then 1 tab daily for 5 days. 35 tablet 1 09/05/2022 09/20/2022 Active Start: 05-31-2022 End: 06-15-2022 predniSONE (DELTASONE) 10 mg tablet Indications: Ulcerative pancolitis without complication (HCC) Take 4 tabs daily x5 days, then 2 tabs daily for 5 days, then 1 tab daily for 5 days. 35 tablet 1 05/31/2022 06/15/2022 Active Start: 03-18-2022 End: 04-02-2022 predniSONE (DELTASONE) 10 mg tablet Indications: Ulcerative pancolitis without complication (HCC) Take 4 tabs daily x5 days, then 2 tabs daily for 5 days, then 1 tab daily for 5 days. 35 tablet 1 03/18/2022 04/02/2022 Active Comment on above: Take 4 tabs daily x5 days, then 2 tabs daily for 5 days, then 1 tab daily for 5 days. Take 4 tabs daily fo r 3 days, then 2 tabs daily for 3 days, then 1 tab daily for 3 days with food. pregabalin 50 mg oral capsule (3 sources) Start: 3 End: 3 take 1 capsule by mouth twice daily pregabalin (LYRICA) 50 MG capsule Indications: Mid back pain Take 1 (one) capsule (50 mg total) by mouth 2 (two) times a day . 60 capsule 0 05/06/2023 Active psyllium (METAMUCIL) Pack (3 sources) Start: 3 End: 3 take 1 dose by mouth twice daily psyllium (METAMUCIL) Pack Indications: Diarrhea, unspecified type Take 1 (one) packet by mouth 2 (two) times a day . 60 packet 0 12/24/2022 01/23/2023 Active Psyllium Husk (Aspartame) (Daily Fiber (Psyllium-Aspart)) 3.4 gram powder in packet (2 sources) Start: 3 Psyllium Husk (Aspartame) (Daily Fiber (Psyllium-Aspart)) 3.4 gram powder in packet Active 1 PACKET PO TWICE A DAY January 09, 2023 12:00am vitamin b12 1 mg oral tablet (4 sources) Vitamin B12 Start: 3 take 3 tablets by mouth once daily Cyanocobalamin (Vitamin B-12) (Vitamin B-12) 1,000 mcg Tablet Active 3000 ug PO DAILY January 09, 2023 12:00am SUPPLEMENT zinc acetate 50 mg oral capsule (4 sources) Start: 3 take 1 capsule by mouth once daily Zinc Acetate 50 mg (zinc) Capsule Active 50 mg PO DAILY January 09, 2023 12:00am SUPPLEMENT Completed/Discontinued Medications Medication Drug Class(es) Dates Sig (Normalized) Sig (Original) acetaminophen 325 mg / HYDROcodone bitartrate 5 mg oral tablet (7 sources) Opioid Agonist Start: 01-18-2023 take 1 tablet by mouth every six hours as needed for pain HYDROcodone-acetam inophen (NORCO) 5-325 mg per tablet Indications: Chronic low back pain, unspecified back pain laterality, unspecified whether sciatica present Take 1 tablet by mouth every 6 hours as needed for pain. 12 tablet 0 01/18/2023 Active Start: 05-25-2020 End: 05-27-2020 Hydrocodone-Acetaminophen 1 TABLET tablet Discontinued 1 {tbl} PO EVERY 4 HOURS NEEDED as needed for Pain 10 2 0 May 25, 2020 May 26, 2020 12:00am May 27, 2020 12:03am Abdominal pain Unspecified abdominal pain Start: 05-25-2020 End: 05-27-2020 take 1 tablet by mouth every four hours as needed Hydrocodone-Acetaminophen Discontinued 1 TABLET PO EVERY 4 HOURS NEEDED 10 2 May 25, 2020 [place] 1st, 2020 12:03am Comment on above: Take 1 tablet by radha th every 6 hours as needed for pain. acetaminophen 325 mg / oxyCODONE hydrochloride 5 mg oral tablet (4 sources) Opioid Agonist Start: 07-20-2019 End: 07-26-2019 Oxycodone-Acetaminophen 1 TABLET tablet Discontinued 1 {tbl} PO EVERY 6 HOURS NEEDED as needed for Pain Score 1-10/10 20 5 0 July 20, 2019 July 24, 2019 12:00am July 26, 2019 12:09am Closed fracture of four ribs Kidney laceration Laceration of unspecified kidney, unspecified degree, initial encounter Start: 07-20-2019 End: 07-26-2019 take 1 tablet by mouth every six hours as needed Oxycodone-Acetaminophen Discontinued 1 TABLET PO EVERY 6 HOURS NEEDED 20 5 July 20, 2019 July 26, 2019 12:09am ascorbic acid 4700 mg / polyethylene glycol 3350 478348 mg / potassium chloride 1015 mg / sodium ascorbate 5900 mg / sodium chloride 2690 mg / sodium sulfate 7500 mg powder for oral solution (5 sources) Osmotic Laxative, Vitamin C Start: 06-21-2022 DGG-JGf-NlIi-NaSulf-Na Asc-C 100 GM Oral Solution Reconstituted Quantity: 0 Refills: 0 Ordered: 21-Jun-2022 Magdaleno White DO Start : 21-Jun-2022 Active baclofen 10 mg oral tablet (20 sources) gamma-Aminobut yric Acid-ergic Agonist Start: 11-27-2023 End: 12-31-2024 take 1 tablet by mouth three times daily as needed for muscle spasms baclofen 10 mg tablet Indications: Chronic midline low back pain, unspecified whether sciatica present Take 1 tablet by mouth three times a day as needed (muscle spasms). 90 tablet 5 08/11/2024 12/31/2024 Discontinued Start: 04-14-2023 take 1 tablet by radha th three times daily as needed for muscle spasms baclofen 10 mg tablet Indications: Chronic midline low back pain, unspecified whether sciatica present TAKE 1 TABLET BY MOUTH THREE TIMES DAILY NEEDED (MUSCLE SPASMS). 90 tablet 5 06/23/2023 Active Start: 06-29-2021 End: 12-18-2022 take 1 tablet by mouth three times daily as needed for muscle spasms baclofen (LIORESAL) 10 MG tablet TAKE 1 TABLET BY MOUTH THREE TIMES DAILY NEEDED (MUSCLE SPASMS). 0 04/14/2023 Active Comment on above: [facility] ([facility] sp[facility]). benzonatate 100 mg oral capsule (9 sources) Non-narcotic Antitussive Start: 03-16-2022 Benzonatate 100 MG Oral Capsule Quantity: 30 Refills: 0 Ordered: 16-Mar-2022 DO Start : 16-Mar-2022 Active Start: 03-16-2022 End: 03-26-2022 take 1 capsule by mouth three times daily as needed benzonatate (TESSALON PERLE) 100 mg capsule Indications: Suspected COVID-19 virus infection Take 1 capsule by mouth three times daily as needed for up to 10 days. 30 capsule 0 03/16/2022 03/26/2022 Active Comment on above: Take 1 capsule by mo [facility] three times daily as needed for up to 10 days. 24 hr budesonide 9 mg extended release oral tablet (20 sources) Corticosteroid Start: take 1 tablet by mouth once daily budesonide (UCERIS) 9 mg TaDE Take 1 tablet by mouth once daily. 30 tablet 11 11/27/2021 Suspended Start: 11-27-2021 take 1 tablet by [facility] every twenty-four hours Uceris 9 MG Oral Tablet Extended Release 24 Hour Quantity: 30 Refills: 0 Ordered: 15-Feb-2022 DO Start : 27-Nov-2021 Active Comment on above: Take 1 tablet by [facility] once daily. Bupivacaine (2 sources) Amide Local Anesthetic Start: End: BUPivacaine HCl (MARCAINE) 0.5 % (5 mg/mL) injection 1 mL cholecalciferol 0.025 mg oral tablet (4 sources) Vitamin D Start: End: take 1 tablet by mouth once daily Cholecalciferol (Vitamin D3) 25 mcg (1,000 unit) Tablet Discontinued 25 ug PO DAILY January 09, 2023 12:00am May 20, 2025 3:36pm SUPPLEMENT 1 ml dexamethasone phosphate 4 mg/ml injection (2 sources) Corticosteroid Start: End: 023 dexAMETHasone (DECADRON) injection 4 mg Start: 06-19-2023 End: 06-19-2023 dexAMETHasone (DECADRON) inj ection 4 mg DULoxetine 20 mg delayed release oral capsule (20 sources) Serotonin and Norepinephrine Reuptake Inhibitor Start: 07-09-2023 End: 11-28-2023 take 1 capsule by mouth once daily DULoxetine (CYMBALTA) 20 mg capsule Indications: Anxiety with depression Take 1 capsule by mouth once daily. 30 capsule 0 07/09/2023 11/28/2023 Discontinued Start: 12-17-2022 End: 05-20-2025 take 1 capsule by mouth once daily Duloxetine 60 mg capsule,delayed release(DR/EC) Discontinued 60 mg PO DAILY January 09, 2023 12:00am May 20, 2025 3:37pm DEPRESSION Start: 12-28-2021 End: 06-17-2022 take 1 capsule by mouth once daily DULoxetine (CYMBALTA) 60 mg capsule Indications: Anxiety , Mild major depression (HCC) TAKE 1 CAPSULE BY MOUTH ONCE DAILY 30 capsule 5 06/17/2022 Active Start: 12-28-2021 DULoxetine HCl - 60 MG Oral Capsule Delayed Release Particles Quantity: 30 Refills: 0 Ordered: 23-Feb-2022 DO Start : 28-Dec-2021 Active Comment on above: Take 1 capsule by mo [facility] once daily. TAKE [address] CAPSULE BY MO [facility] ONCE DAILY FLUoxetine 10 mg oral capsule (1 source) Serotonin Reuptake Inhibitor Start : 10-29 End: 11-28 take 1 capsule by mouth once daily FLUoxetine (PROZAC) 10 mg capsule Indications: Anxiety with depression Take 1 capsule by mouth once daily. 30 capsule 2 10/29/2023 11/28/2023 Discontinued Comment on above: Take 1 capsule by mo [facility] once daily. hydroCHLOROthiazide 25 mg oral tablet (4 sources) Thiazide Diuretic Start : 02-18 End: 02-20 take 1 tablet by mouth once daily Hydrochlorothiazide 25 MG tablet Discontinued 25 mg PO DAILY February 18, 2017 12:00am February 20, 2017 9:49am hydrocortisone 25 mg/ml topical cream (8 sources) Corticosteroid Start : 01-12 End: 06-04 hydrocortisone (ANUSOL-HC) 2.5 % rectal cream by RECTAL route twice daily. 28 g 1 01/13/2020 06/04/2022 Discontinued Comment on above: by RECTAL route twic e daily. hydrocortisone acetate 25 mg/ml / pramoxine hydrochloride 10 mg/ml rectal cream (6 sources) Corticosteroid Start : 03-09 Hydrocortisone Buster-Pramoxine 2.5-1 % External Cream APPLY SPARINGLY TO AFFECTED AREA(S) 3 TIMES A DAY Quantity: 1 Refills: 1 Ordered: 09-Mar-2020 Ramsey White DOe Start : 09-Mar-2020 Active 10 ml lidocaine hydrochloride 10 mg/ml injection (1 source) Antiarrhythmic, Amide Local Anesthetic Start : 06-16 End: 06-16 lidocaine (PF) 10 mg/mL (1 %) 5 mL injection (XYLOCAINE) loperamide hydrochloride 2 mg oral capsule (14 sources) Opioid Agonist Start : 01-09 End: 05-20 take 1 capsule by mouth once daily Loperamide 2 MG capsule Discontinued 2 mg PO DAILY January 09, 2023 12:37pm May 20, 2025 3:37pm DIARRHEA Start: 01-02-2023 End: 05-05-2024 take 1 capsule by mouth four times daily as needed for diarrhea loperamide (IMODIUM) 2 mg capsule Indications: Ulcerative colitis with complication, unspecified location (HCC) Take 1 (one) capsule (2 mg total) by mouth 4 (four) times a day as needed for diarrhea . 30 capsule 0 05/06/2023 05/05/2024 Active Start: 02-20-2017 End: 01-09-2023 take 1 capsule by mouth every six hours as needed for diarrhea Loperamide 2 MG capsule Discontinued 2 mg PO EVERY 6 HOURS NEEDED as needed for Diarrhea 0 0 February 20, 2017 12:00am January 09, 2023 12:37pm nitrofurantoin, macrocrystals 25 mg / nitrofurantoin, monohydrate 75 mg oral capsule (2 sources) Nitrofuran Antibacterial Start: 12-24-2022 End: 12-29-2022 take 1 capsule by mouth twice daily nitrofurantoin, macrocrystal-monohydrate, (MACROBID) 100 MG capsule Take 1 (one) capsule (100 mg total) by mouth 2 (two) times a day for 5 days . 10 capsule 0 12/24/2022 12/29/2022 Psyllium Husk (Daily Fiber (Psyllium-Aspart)) 3.4 gram powder in packet (2 sources) Start: 01-09-2023 End: 05-20-2025 Psyllium Husk (Daily Fiber (Psyllium-Aspart)) 3.4 gram powder in packet Discontinued 1 NMA PO TWICE A DAY January 09, 2023 12:00am May 20, 2025 3:37pm DIARRHEA rifAXIMin 550 mg oral tablet (2 sources) Rifamycin Antibacterial Start: 08-07-2022 take 1 tablet by mouth three times daily Xifaxan 550 MG Oral Tablet 1 tablet 3 times daily until gone Quantity: 42 Refills: 0 Ordered: 07-Aug-2022 Magdaleno White DO Start : 07-Aug-2022 Active Suprep Bowel Prep Kit 17.5-3.13-1.6 GM/177ML Oral Solution (1 source) Start: 06-20-2022 Suprep Bowel Prep Kit 17.5-3.13-1.6 GM/177ML Oral Solution USE DIRECTED. Quantity: 1 Refills: 0 Ordered: 20-Jun-2022 Magdaleno White DO Start : 20-Jun-2022 Active tiZANidine 4 mg oral tablet (8 sources) Central alpha-2 Adrenergic Agonist Start: 02-21-2022 End: 06-04-2022 take 1 tablet by mouth every eight hours as needed for muscle spasms tiZANidine (ZANAFLEX) 4 mg tablet Indications: Chronic midline low back pain without sciatica Take 1 tablet by mouth every 8 hours as needed (muscle spasms). 60 tablet 1 02/21/2022 06/04/2022 Discontinued Comment on above: Take 1 tablet by radha every 8 hours as needed (muscle spasms). traMADol hydrochloride 50 mg oral tablet (6 sources) Opioid Agonist Start: 03-09-2020 take 1 tablet by mouth three times daily as needed traMADol HCl - 50 MG Oral Tablet TAKE 1 TABLET 3 TIMES DAILY NEEDED. Quantity: 20 Refills: 0 Ordered: 09-Mar-2020 Magdaleno White DO Start : 09-Mar-2020 Active 1 ml triamcinolone acetonide 40 mg/ml injection (1 source) Corticosteroid Start: 06-16-2023 End: 06-16-2023 triamcinolone acetonide 80 mg injection (KeNALog 40) Problems Active Problems Problem Classification Problem Date Documented Da te Episodic/Chronic Abdominal pain (20 sources) Left sided abdominal pain; Translations: [Unspecified abdominal pain] Episodic Anal and rectal conditions (6 sources) Anal fissure; Translations: [Anal fissure] Episodic Anxiety disorders (20 sources) Anxiety; Translations: [Anxiety disorder, unspecified] Onset: 0 11-30-2009 Chronic Conditions associated with dizziness or vertigo (1 source) Dizziness; Translations: [Dizziness and giddiness] Episodic Crushing injury or internal injury (4 sources) Laceration of right kidney; Translations: [Laceration of right kidney, unspecified degree, initial encounter] 07-21-2019 Episodic Diabetes mellitus without complication (3 sources) Prediabetes; Translations: [Prediabetes] Onset: 3 05-06-2023 Episodic Disorders of lipid metabolism (1 source) Mixed hyperlipidemia; Translations: [Mixed hyperlipidemia] Chronic Diverticulosis and diverticulitis (1 source) Diverticulosis of large intestine without perforation or abscess without bleeding; Translations: [Dvrtclos of lg int w/o perforation or abscess w/o bleeding] Onset: 2 Chronic Esophageal disorders (2 sources) Gastro-esophageal reflux disease without esophagitis; Translations: [Gastroesophageal reflux disease without esophagitis] Onset: 2 07-09-2023 Chronic Essential hypertension (20 sources) Essential hypertension; Translations: [Essential (primary) hypertension] Onset: 5 08-17-2015 Chronic Gastritis and duodenitis (1 source) Unspecified chronic gastritis without bleeding; Translations: [Unspecified chronic gastritis without bleeding] Onset: 2 Chronic Hemorrhoids (6 sources) Thrombosed external hemorrhoids; Translations: [External thrombosed hemorrhoids] Episodic Immunizations and screening for infectious disease (4 sources) Suspected disease caused by 2019nCoV; Translations: [Suspected COVID-19 virus infection] Episodic Inflammatory diseases of female pelvic organs (2 sources) Hydrosalpinx; Translations: [Chronic salpingitis] Chronic Malaise and fatigue (1 source) Asthenia; Translations: [Weakness] Episodic Mood disorders (12 sources) Mild major depression; Translations: [Major depressive disorder, single episode, mild] Chronic Mood disorders (1 source) Mood disorders; Translations: [Anxiety and depression] Onset: 3 Nausea and vomiting (18 sources) Nausea; Translations: [Nausea] Onset: 2 Episodic Nutritional deficiencies (1 source) Vitamin D deficiency; Translations: [Vitamin D deficiency, unspecified] Chronic Osteoarthritis (5 sources) Arthritis of right sternoclavicular joint; Translations: [Primary osteoarthritis, right shoulder] Onset: 3 06-16-2023 Chronic Other aftercare (2 sources) 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; 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] Episodic Other aftercare (1 source) Post-discharge follow-up; Translations: [Encounter for follow-up examination after completed treatment for conditions other than malignant neoplasm] Episodic Other circulatory disease (1 source) Hypotension, unspecified; Translations: [Hypotension, unspecified hypotension type] Onset: 3 Episodic Other connective tissue disease (4 sources) Pain of right lower leg; Translations: [Pain in right lower leg] 07-21-2019 Episodic Other connective tissue disease (1 source) Biceps tendinitis; Translations: [Bicipital tendinitis, right shoulder] 06-16-2023 Episodic Other connective tissue disease (1 source) Bone spur of left foot; Translations: [Other enthesopathy of left foot and ankle] 06-19-2023 Episodic Other connective tissue disease (2 sources) Pain in right foot; Translations: [Pain in right foot] Onset: 3 Episodic Other connective tissue disease (2 sources) Other enthesopathy of left foot and ankle; Translations: [Other enthesopathy of left foot and ankle] Onset: 3 Episodic Other connective tissue disease (1 source) Muscle pain; Translations: [Myalgia, unspecified site] 05-27-2025 Episodic Other eye disorders (1 source) Discharge from eye; Translations: [Other specified disorders of eye and adnexa] 05-27-2025 Episodic Other fractures (4 sources) Fracture of rib; Translations: [Fracture of one rib, unspecified side, initial encounter for closed fracture] 07-21-2019 Episodic Other gastrointestinal disorders (2 sources) Irritable bowel syndrome with diarrhea; Translations: [Irritable bowel syndrome] Chronic Other gastrointestinal disorders (6 sources) Abdominal bloating; Translations: [Flatulence, eructation, and gas pain] Episodic Other gastrointestinal disorders (17 sources) Diarrhea; Translations: [Diarrhea, unspecified] Onset: 3 Episodic Other gastrointestinal disorders (4 sources) History of irritable bowel syndrome; Translations: [Personal history of other diseases of the digestive system] 01-09-2023 Episodic Other gastrointestinal disorders (1 source) Personal history of other diseases of the digestive system; Translations: [Personal history of other diseases of digestive system] 01-11-2023 Episodic Other gastrointestinal disorders (1 source) Finding of abdominopelvic segment of trunk; Translations: [Left lower quadrant abdominal swelling, mass and lump] Episodic Other injuries and conditions due to external causes (4 sources) Systemic inflammatory response syndrome; Translations: [Systemic inflammatory response syndrome (SIRS) of non-infectious origin without acute organ dysfunction] 07-20-2019 Episodic Other nervous system disorders (5 sources) Chronic pain; Translations: [Other chronic pain] 07-20-2019 Chronic Other nervous system disorders (2 sources) Other chronic pain; Translations: [Chronic low back pain, unspecified back pain laterality, unspecified whether sciatica present] Onset: 0 Chronic Other screening for suspected conditions (not mental disorders or infectious disease) (8 sources) Patient encounter status; Translations: [Encounter for screening mammogram for malignant neoplasm of breast] Episodic Other skin disorders (5 sources) Mass of neck; Translations: [Localized swelling, mass and lump, neck] 05-29-2023 Episodic Regional enteritis and ulcerative colitis (20 sources) Ulcerative colitis; Translations: [Ulcerative colitis, unspecified, without complications] Onset: 7 08-17-2015 Chronic Residual codes; unclassified (4 sources) Bilateral lower limb edema; Translations: [Localized edema] Onset: 3 05-06-2023 Episodic Residual codes; unclassified (4 sources) Localized edema; Translations: [Localized edema] Onset: 3 Episodic Spondylosis; intervertebral disc disorders; other back problems (20 sources) Backache; Translations: [Dorsalgia, unspecified] Onset: 0 11-30-2009 Episodic Substance-related disorders (20 sources) Smoker; Translations: [Nicotine dependence, unspecified, uncomplicated] Onset: 0 11-22-2019 Chronic Superficial injury; contusion (6 sources) Contusion of scalp, initial encounter; Translations: [Contusion of lower limb] Onset: 2 Episodic Unclassified (1 source) Chronic low back pain, unspecified back pain laterality, unspecified whether sciatica present; Translations: [Chronic low back pain, unspecified back pain laterality, unspecified whether sciatica present] Onset: 3 Unclassified (1 source) Other esophagitis without bleeding; Translations: [Other esophagitis without bleeding] Onset: 2 Unclassified (1 source) Chronic midline low back pain, unspecified whether sciatica present; Translations: [Chronic midline low back pain, unspecified whether sciatica present] Onset: 0 Viral infection (1 source) Viral disease; Translations: [Viral infection, unspecified] Episodic Past or Other Problems Problem Classification Problem Date Documented Da te Episodic/Chronic Acute and unspecified renal failure (20 sources) Injury of kidney; Translations: [Acute kidney failure, unspecified] Onset: 01-16-2023 Resolved: 01-18-2023 01-09-2023 Episodic Fluid and electrolyte disorders (20 sources) Dehydration; Translations: [Dehydration] Onset: 01-15-2023 Resolved: 01-18-2023 01-09-2023 Episodic Noninfectious gastroenteritis (20 sources) Colitis; Translations: [Noninfective gastroenteritis and colitis, unspecified] Onset: 01-16-2023 01-16-2023 Episodic Other and unspecified benign neoplasm (1 source) Benign neoplasm of ascending colon; Translations: [Benign neoplasm of ascending colon] Onset: 07-26-2022 Episodic Other circulatory disease (2 sources) Elevated blood-pressure reading, without diagnosis of hypertension; Translations: [Elevated blood-pressure reading, without diagnosis of hypertension] Onset: 02-11-2022 Episodic Other circulatory disease (20 sources) Low blood pressure; Translations: [Hypotension, unspecified] Onset: 01-15-2023 01-15-2023 Episodic Other gastrointestinal disorders (6 sources) Diarrhea, unspecified; Translations: [Diarrhea, unspecified] Onset: 07-26-2022 Episodic Other injuries and conditions due to external causes (2 sources) Unspecified injury of head, initial encounter; Translations: [Unspecified injury of head, initial encounter] Onset: 02-11-2022 Episodic Other nervous system disorders (4 sources) Paresthesia of hand ; Translations: [Anesthesia of skin] Onset: 02-25-2023 02-25-2023 Episodic Other nervous system disorders (2 sources) Anesthesia of skin; Translations: [Anesthesia of skin] Onset: 02-25-2023 Episodic Other nervous system disorders (2 sources) Paresthesia of skin; Translations: [Paresthesia of skin] Onset: 02-25-2023 Episodic Septicemia (except in labor) (20 sources) Sepsis; Translations: [Sepsis, unspecified organism] Onset: 01-15-2023 01-15-2023 Episodic Unclassified (1 source) Patient encounter status 02-04-2025 Results Test Name Value Interpretation Reference Range Facility ANCAon 06-15-2025 Atypical pANCA <1:20 Normal Neg:<1:20 [facility] Comment on above: Result Comment: The atypical pANCA pattern has been observed in a significant percentage of patients with ulcerative colitis, primary sclerosing cholangitis and autoimmune hepatitis. Performed By: #### M 100.2000, M100.4001, M100.2800 #### [facility] [address] [place], [address] Cytoplasmic Ab <1:20 Normal Neg:<1:20 [facility] Comment on above: Performed By: #### M 100.2000, M100.4001, M100.2800 #### [facility] [address] [place], [address] Perinuclear Ab. <1:20 Normal Neg:<1:20 [facility] Comment on above: Result Comment: The presence of positive fluorescence exhibiting P-ANCA or C-ANCA patterns alone is not specific for the diagnosis of Jean's Granulomatosis (WG) or microscopic polyangiitis. Decisions about treatment should not be based solely on ANCA IFA results. The International ANCA Group Consensus recommends follow up testing of positive sera with both MA- 3 and MPO-ANCA enzyme immunoassays. As many as 5% serum samples are positive only by EIA. Ref. AM J Clin Pathol 1999;111:507-513. Performed By: #### M , .4000, M1.2800 #### [facility] [address] [place], [address] Aldolaseon 06-15-2025 ALDOLASE 3.0 U/L Low 3.3-10.3 [facility] Comment on above: Performed By: #### M , , .2800 #### [facility] [address] [place], [address] Angiotensin Convert Enzymeon 06-15-2025 ANGIOT-CONV.ENZ 74 U/L Normal 14-82 [facility] Comment on above: Performed By: #### M , , .2800 #### [facility] [address] [place], [address] Anti-Smooth Muscle ABSon ANTISMOOTH MUSC 3 Units Normal 0-19 [facility] Comment on above: Result Comment: Nega tive 0 - 19 Weak positive 20 - 30 Moderate to strong positive >30 Actin Antibodies are found in 52-85% of patients with autoimmune hepatitis or chronic active hepatitis and in 22% of patients with primary biliary cirrhosis. Performed By: #### M , , .2800 #### [facility] [address] [place], [address] Ceruloplasminon 06-15-2025 CERULOPLASMIN 31.1 mg/dL Normal 19.0-39.0 [facility] Comment on above: Performed By: #### M , .400, M1.2800 #### [facility] [address] [place], [address] SUZAN + Protein Elect, Serumon 06-15-2025 Albumin [Mass/Vol] 3.1 g/dL Normal 2.9-4.4 [facility] Comment on above: Order Comment: N Performed By: #### M , , M1.2800 #### [facility] [address] [place], [address] Albumin/Globulin [Mass ratio] 1.0 {ratio} Normal 0.7-1.7 [facility] Comment on above: Order Comment: N Performed By: #### M , , M1.2800 #### [facility] [address] [place], [address] JOJBZ-3-HBUZ 0.4 g/dL Normal 0.0-0.4 [facility] Comment on above: Order Comment: N Performed By: #### , , .2800 #### [facility] [address] [place], [address] UTLUK-6-EFAC 1.0 g/dL Normal 0.4-1.0 [facility] Comment on above: Order Comment: N Performed By: #### M , , M1.2800 #### [facility] [address] [place], [address] BETA GLOBULIN 1.1 g/dL Normal 0.7-1.3 [facility] Comment on above: Order Comment: N Performed By: #### M , , M100.2800 #### [facility] [address] [place], [address] GAMMA GLOBULIN 0.8 g/dL Normal 0.4-1.8 [facility] Comment on above: Order Comment: N Performed By: #### M , .400, M100.2800 #### [facility] [address] [place], [address] Globulin (S) [Mass/Vol] 3.3 g/dL Normal 2.2-3.9 [facility] Comment on above: Order Comment: N Performed By: #### M 100.1999, M100.400, M100.2800 #### [facility] [address] [place], [address] SUZAN RESULT,S Comment Normal . [facility] Comment on above: Order Comment: N Result Comment: No m onoclonality detected. Performed By: #### M 100.1999, M100.400, M100.2800 #### [facility] [address] [place], [address] IMMUNOGLOB A QN 278 mg/dL Normal 87-352 [facility] Comment on above: Order Comment: N Performed By: #### M .1999, .400, M100.2800 #### [facility] [address] [place], [address] IMMUNOGLOB G QN 700 mg/dL Normal 586-1602 [facility] Comment on above: Order Comment: N Performed By: #### M .1999, M100.400, M100.2800 #### [facility] [address] [place], [address] IMMUNOGLOB M QN 134 mg/dL Normal 26-217 [facility] Comment on above: Order Comment: N Performed By: #### M 100.1999, M100.400, M100.2800 #### [facility] [address] [place], [address] M-Keaton Not Observed Normal Not Observed [facility] Comment on above: Order Comment: N Performed By: #### M .1999, M100.400, M100.2800 #### [facility] [address] [place], [address] NOTE: Comment Normal . [facility] Comment on above: Order Comment: N Result Comment: Prot ein electrophoresis scan will follow via computer, mail, or band nailer delivery. Performed By: #### M 100.1999, M100.400, M100.2800 #### [facility] [address] [place], [address] Protein [Mass/Vol] 6.4 g/dL Normal 6.0-8.5 [facility] Comment on above: Order Comment: N Performed By: #### M 100.1999, M100.400, M100.2800 #### [facility] [address] [place], [address] Immunoglobulins G/A/M/West IMMUNOGLOB E QN 25 IU/mL Normal 6-495 [facility] Comment on above: Order Comment: N Performed By: #### M 100, M100.4000, M100.2800 #### [facility] [address] [place], [address] L2100.0000on 06-15-2025 ACCA 31 units Normal 0-90 [facility] Comment on above: Result Comment: Nega tive: <80 Equivocal: 80-90 Positive: >90 Performed By: #### M 100.1999, M100.400, M100.2800 #### [facility] [address] [place], [address] ALCA 2 units Normal 0-60 [facility] Comment on above: Result Comment: Nega tive:<55 Equivocal: 55-60 Positive: >60 Performed By: #### M 100.1999, M100.400, M100.2800 #### [facility] [address] [place], [address] AMCA 20 units Normal 0-100 [facility] Comment on above: Result Comment: Nega tive: <90 Equivocal: 90-100 Positive: >100 This test was developed and its performance characteristics determined by [facility]. It has not been cleared or approved by the Food and Drug Administration. The FDA has determined that such clearance or approval is not necessary. Performed By: #### M 100.1999, M100.4001, M100.2800 #### [facility] [address] [place], [address] Atypical pANCA Negative Normal Negative [facility] Comment on above: Performed By: #### M 100.1999, M100.400, M100.2800 #### [facility] [address] [place], [address] COMMENT Comment Normal . [facility] Comment on above: Result Comment: Sinai dileep is not suggestive of Inflammatory Bowel Disease Performed By: #### M 100.1999, M100.4001, M100.2800 #### [facility] [address] [place], [address] Wilfred 22 units Normal 0-50 [facility] Comment on above: Result Comment: Nega tive: <45 Equivocal: 45-50 Positive: >50 Performed By: #### M 100.1999, M100.4001, M100.2800 #### [facility] [address] [place], [address] Lyme Screen W/Reflex WBon LYME SCREEN Ab Negative Normal Negative [facility] Comment on above: Result Comment: Lyme antibodies not detected. Reflex testing is not indicated. No laboratory evidence of infection with B. burgdorferi (Lyme disease). Negative results may occur in patients recently infected (less than or equal to 14 days) with B. burgdorferi. If recent infection is suspected, repeat testing on a new sample collected in 7 to 14 days is recommended. Performed By: #### M 100, M100.400, M100.2800 #### [facility] [address] [place], [address] CNOVon 05-27-2025 [facility] GABBY SPENCE ([id number]) 1965 F Date Time Provider Department 05/27/25 11:40 AM KHADIJAH CURRAN During your visit today, we recorded the following information about you: Pulse Blood pressure Weight 83/minute 118/70 89.3 kg Khadijah Curran MD 05/27/2025 5:46 PM Signed Chief Complaint No chief complaint on file. HPI Gabby Spence is a 60-year-old female with a history of chronic diarrhea, arthritis, and GERD, presenting for follow-up after a recent visit with a restaurant greeter. Gabby reports chronic diarrhea and diffuse myalgia, particularly in the upper extremities, making it difficult to lift her arms. She was recently evaluated by a restaurant greeter, who performed extensive blood work, and she is awaiting the results. She is scheduled for a colonoscopy on July 15. She inquires about another course of prednisone, noting that it has provided relief in the past. She has previously tried Flexeril, which offered minimal relief, and she expresses a preference against baclofen. She also reports recent onset of heartburn, despite being on pantoprazole. She mentions a history of cardiac issues and expresses a desire to consult a composite engineer. Additionally, she reports a recent episode of blurred vision and pain in her left eye, which she attributes to using an old, unwashed makeup brush. She describes seeing what appeared to be a bug or larva in her eye. A culture was taken, which grew bacteria, but she has since discarded the makeup and is no longer experiencing symptoms. She denies any purulent drainage from the eyes. Past medical history, appointments, medications, allergies reviewed. Previous Medical History PAST MEDICAL HISTORY Diagnosis Date Anxiety Back pain Diastolic dysfunction 10/2017 EF 65%, stage 1 diastolic dysfunction per Echo History of colonoscopy 02/25/2008 Done at [facility]/Dr. Vo Ulcerative colitis, unspecified Ulcerative colitis Previous Surgical History PAST SURGICAL HISTORY Procedure Laterality Date COLONOSCOPY Every 3 years, Dr White in [place] COLONOSCOPY 08/13/2017 EGD, Dr. White, Normal COLONOSCOPY FLX DX W/COLLJ SPEC WHEN PFRMD 08/19/[address] White - info scanned Family History FAMILY HISTORY Problem Relation Age of Onset Cancer Mother Cancer Father Heart disease Brother 3 brothers - 52years old 53 yesr old and 54 years old Patient Allergies ALLERGIES Allergen Reactions Wellbutrin [Bupropi* GI Upset Nausea and GI upset Azulfidine [Sulfasa* Hives Current Medications Current Outpatient Medications on File Prior to Visit Medication Sig gabapentin (NEURONTIN) 600 mg tablet Take 1 tablet by mouth three times a day for 90 days. amLODIPine (NORVASC) 10 mg tablet Take 1 tablet by mouth once daily. Mesalamine (LIALDA) 1.2 gram EC tablet Take 2 tablets by mouth daily with breakfast. escitalopram oxalate (LEXAPRO) 10 mg tablet Take 1 tablet by mouth once daily. lisinopril (ZESTRIL) 10 mg tablet Take 1 tablet by mouth once daily. cyclobenzaprine (FLEXERIL) 10 mg tablet Take 1 tablet by mouth three times a day as needed for muscle spasm. pantoprazole DR (PROTONIX) 40 mg tablet Take 1 tablet by mouth once daily. No current facility-administered medications on file prior to visit. Social History Social History Tobacco Use Smoking status: Every Day Current packs/day: 1.00 Average packs/day: 1 pack/day for 43.6 years (43.6 ttl pk-yrs) Types: Cigarettes Start date: 10/27/1981 Smokeless tobacco: Never Tobacco comments: Cut back to 9-10 cigarettes per day Vaping Use Vaping status: Never Used Substance Use Topics Alcohol use: Yes Comment: once in a while Drug use: No EXAM: LMP 07/14/2013 General Appearance: Well appearing, alert, in no acute distress, well-hydrated, well nourished.. Eyes: Normal, no erythema or draiange Lungs: Lungs clear to auscultation. No wheezing, rhonchi, rales.. Heart: RRR without murmur, gallop, or rubs. No ectopy. Health Maintenance List HIV Screening Never done Lung Cancer Screening Never done Shingrix Vaccine(1 of 2) Never done Pneumococcal Vaccine: 50+(2 of 2 - PPSV23) due on 10/12/2015 Cervical Cancer Screening due on 11/18/2016 Mammogram Screening due on 02/19/2022 DTaP,Tdap,Td Vaccine(2 - Td or Tdap) due on 06/30/2022 Colorectal Cancer Screening due on 07/26/2025 Influenza Vaccine(1) due on 06/27/2025 Annual PCP Team Chronic Disease Visit due on 12/31/2025 Diabetes Screening due on 01/01/2028 Lipid Screening due on 12/31/2029 RSV Vaccine(1 - 1-dose 75+ series) due on 2040 Hepatitis C Screening Completed Data reviewed Culture in scanned docs 1. Eye drainage (H57.89) No signs of infection or concerning findings on examination. Recent culture showed presence of bacteria, but not caus (more content not included)... Normal [facility] Culture, Anaerobic Any Sourc west 05-26-2025 CUAN EYE DEBRIS/PARTICULA TE MATTER Lactobacillus hilgardii Normal [facility] Comment on above: Performed By: #### M 100.2000, M100.4001, M100.2800 #### [facility] [address] [place], [address] Allergen, Food Profileon CLAM <0.10 Normal Class 0 [facility] Comment on above: Performed By: #### M 100.2000, M100.4001, M100.2800 #### [facility] [address] [place], [address] CODFISH <0.10 Normal Class 0 [facility] Comment on above: Performed By: #### M 100.2000, M100.4001, M100.2800 #### [facility] [address] [place], [address] COMMENT Comment Normal . [facility] Comment on above: Result Comment: Dom bean of Specific IgE Class Description of Class ----- < 0.10 0 Negative 0.10 - 0.31 0/I Equivocal/Low 0.32 - 0.55 I Low 0.56 - 1.40 II Moderate 1.41 - 3.90 III High 3.91 - 19.00 IV Very High 19.01 - 100.00 V Very High >100.00 Very High Performed By: #### M , , M100.2800 #### [facility] [address] [place], [address] CORN <0.10 Normal Class 0 [facility] Comment on above: Performed By: #### M , , M100.2800 #### [facility] [address] [place], [address] EGG, WHITE <0.10 Normal Class 0 [facility] Comment on above: Performed By: #### M , , M1.2800 #### [facility] [address] [place], [address] MILK (COW) <0.10 Normal Class 0 [facility] Comment on above: Performed By: #### M , , M100.2800 #### [facility] [address] [place], [address] PEANUT <0.10 Normal Class 0 [facility] Comment on above: Performed By: #### M , .4000, M100.2800 #### [facility] [address] [place], [address] SCALLOP <0.10 Normal Class 0 [facility] Comment on above: Performed By: #### M , .4000, M100.2800 #### [facility] [address] [place], [address] SESAME SEED <0.10 Normal Class 0 [facility] Comment on above: Result Comment: Perf ormed at: - [facility] [address] [id number] Entry Rep: Bill Palomares PhD, Phone: [phone] Performed at: - [facility] [address] [id number] Entry Rep: Srikanth Stroud MD, Phone: [phone] Performed By: #### M 100.1999, M100.4001, M100.2800 #### [facility] [address] [place], [address] SHRIMP <0.10 Normal Class 0 [facility] Comment on above: Performed By: #### M 100.1999, M100.4001, M100.2800 #### [facility] [address] [place], [address] SOYBEAN <0.10 Normal Class 0 [facility] Comment on above: Performed By: #### M 100.1999, M100.4001, M100.2800 #### [facility] [address] [place], [address] WALNUT,(Food) <0.10 Normal Class 0 [facility] Comment on above: Performed By: #### M 100.1999, M100.4001, M100.2800 #### [facility] [address] [place], [address] WHEAT <0.10 Normal Class 0 [facility] Comment on above: Performed By: #### M 100.1999, M100.4001, M100.2800 #### [facility] [address] [place], [address] Anti-Mitochondrial ABon 07-3 0-2024 ANTIMITOCHON AB <20.0 Normal 0.0-20.0 [facility] Comment on above: Result Comment: Nega tive 0.0 - 20.0 Equivocal 20.1 - 24.9 Positive >24.9 Mitochondrial (M2) Antibodies are found in 90-96% of patients with primary biliary cirrhosis. Performed By: #### M 100.2000, M100.4001, M100.2800 #### [facility] [address] [place], [address] Eye Cultureon 05-25-2025 EC EYE DEBRIS/PARTICULA TE MATTER #2, 4 Clinical correlation necessary, Possible skin contamination. Eye Culture Enterobacter cancerogenus Amount Growth Rare Staphylococcus epidermidis Staphylococcus epidermidis ECAS Amount Growth Rare Enterococcus casseliflavus (D) Amount Growth Rare Leclercia adecarboxylata Staphylococcus hominis hominis Enterobacter cancerogenus: REACTION Cefepime Islt LAURA <=0.12 S Leclercia adecarboxylata Gentamicin Islt LAURA <=1 levoFLOXacin Islt LAURA <=0.12 S Meropenem Islt LAURA <=0.25 Pip+Tazo Islt LAURA <=4 S TMP SMX Islt LAURA <=20 S Staphylococcus epidermidis: REACTION cefOXitin Susc Islt POS Doxycycline Islt LAURA 1 S Clindamycin Islt LAURA <=0.12 S Clindamycin.induced Susc Islt NEG Erythromycin Islt LAURA >=8 Gentamicin Islt LAURA <=0.5 S Linezolid Islt LAURA 2 S Oxacillin Susc Islt >=4 R Tetracycline Islt LAURA 2 S TMP SMX Islt LAURA <=10 S Vancomycin Islt LAURA 1 S Enterococcus casseliflavus (D): REACTION Ampicillin Islt LAURA <=2 S Gentamicin Synergy Susc Islt SYN-S S Linezolid Islt LAURA 2 S Streptomycin High Pot Susc Islt SYN-S S Vancomycin Islt LAURA Staphylococcus hominis hominis: REACTION cefOXitin Susc Islt NEG Doxycycline Islt LAURA <=0.5 S Clindamycin Islt LAURA 0.25 S Clindamycin.induced Susc Islt NEG Erythromycin Islt LAURA <=0.25 Gentamicin Islt LAURA <=0.5 S Linezolid Islt LAURA 2 S Oxacillin Susc Islt <=0.25 S Tetracycline Islt LAURA <=1 S TMP SMX Islt LAURA <=10 S Vancomycin Islt LAURA <=0.5 S Leclercia adecarboxylata: REACTION Meropenem Islt LAURA <=0.25 S Leclercia adecarboxylata: REACTION Ampicillin Islt LAURA <=2 S Ampicillin+Sulbac Islt LAURA <=2 S Cefepime Islt LAURA <=0.12 cefTRIAXone Islt LAURA <=0.25 S Ciprofloxacin Islt LAURA <=0.06 Gentamicin Islt LAURA <=1 S levoFLOXacin Islt LAURA <=0.12 S Meropenem Islt LAURA <=0.25 S Pip+Tazo Islt LAURA <=4 S TMP SMX Islt LAURA <=20 S Normal [facility] Comment on above: Performed By: #### M 100.1999, M100.4001, M100.2800 #### [facility] [address] [place], [place], [id number] Vitamin D 1,25-Dihydroxyon 0 05-25-2025 VIT D 1,25 DIHY 23.9 pg/mL Abnormal 24.8-81.5 [facility] Comment on above: Performed By: #### M 100.1999, M100.4001, M100.2800 #### [facility] [address] [place], [address] CNPNon 05-23-2025 [facility] GABBY SPENCE ([id number]) 1965 F Date Time Provider Department 05/23/25 KHADIJAH CURRAN [facility] During your visit today, we recorded the following information about you: Gail Savage, MILO 05/23/2025 2:18 PM Signed Pt called in and reports Dr Duckworth's nurse faxed of labs for provider to look at. They are scanned in t on 05/20/[address] Duckworth, then 05/23/25 external labs eye culture. She said they told her she is growing three different organisms in her eye and they weren't sure what they were. She states she hopes the provider can call in and antibiotic for her today. Please call and advise. MILO Keyes William J, MD 05/23/2025 2:32 PM Signed At least one is just a normal skin bacteria. We usually don't do eye cultures because they may not be real accurate. What kind of symptoms is she having? Has she had anyone other than the [facility]STRO[facility]OLOGY office(who would not know what they are looking at) see the eye. Likely if having a lot of symptoms, needs to see one of us, urgent care or her eye doctor. Gail Savage RN 05/23/2025 2:50 PM Signed Pt called and is notified of providers message and instructions. Pt states she has blurred vision sometimes. Her eyes especially her L eye is itchy and runny. I let her know provider said she would need to be seen by PCP, UC, or eye doctor. Pt wants to know what the other viruses were. I told her provider didn't say. 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 MILO Keyes Amanda, RN 05/23/2025 2:59 PM Signed Called Pt back and she only wanted to schedule with Dr Curran Pt scheduled on 05/27/25 at 1140. Gail Savage RN Allergies As of Date: 05/23/2025 Noted Allergy Reaction WELLBUTRIN (BUPROPION HCL) 04/21/2019 8 - GI Upset Comments: Nausea and GI upset AZULFIDINE (SULFASALAZINE) 09/15/2007 4 - Hives Date Reviewed: 12/31/2024 Reviewed by: Claire Virk MA - Fully Assessed Reason for Visit: Patient Question [1477] Scanned Labs from Dr Friend [Other] Prescriptions as of 05/23/2025 - gabapentin (NEURONTIN) 600 mg tablet Take 1 tablet by mouth three times a day for 90 days. - amLODIPine (NORVASC) 10 mg tablet Take 1 tablet by mouth once daily. - Mesalamine (LIALDA) 1.2 gram EC tablet Take 2 tablets by mouth daily with breakfast. - escitalopram oxalate (LEXAPRO) 10 mg tablet Take 1 tablet by mouth once daily. - lisinopril (ZESTRIL) 10 mg tablet Take 1 tablet by mouth once daily. - cyclobenzaprine (FLEXERIL) 10 mg tablet Take 1 tablet by mouth three times a day as needed for muscle spasm. - pantoprazole DR (PROTONIX) 40 mg tablet Take 1 tablet by mouth once daily. Problem List As Of Date 05/23/2025 Noted Resolved Ulcerative colitis (HCC) [K51.90] 09/15/2007 Anxiety and depression [F41.9, F32.A] 11/30/2009 Back Pain [M54.9] 11/30/2009 Essential hypertension [I10] 11/10/2014 Smoker [F17.200] 11/22/2019 Hypotension [I95.9] 01/15/2023 Dehydration [E86.0] 01/15/2023 01/18/2023 Severe sepsis (HCC) [A41.9, R65.20] 01/15/2023 Colitis [K52.9] 01/16/2023 BRIJESH (acute kidney injury) (HCC) [N17.9] 01/16/2023 01/18/2023 Chronic low back pain [M54.50, G89.29] 01/16/2023 Encounter Status:Closed by GAIL SAVAGE on 05/23/25 Normal [facility] Gram Stainon 05-21-2025 GS EYE DEBRIS/PARTICULA TE MATTER Gram Stain 1+ Gram positive cocci Rare Gram negative rods Rare Epithelial cells Normal [facility] Comment on above: Performed By: #### M 100.2000, M100.4001, M100.2800 #### [facility] [address] [facility] [place], [place], [address] Absolute lymphocyte countOrd ered By: Robi Duckworth on 05-20-2025 Lymphocytes Auto (Unsp spec) [#/Vol] 5.19 10*3/uL High 0.83-4.51 [facility] Absolute neutrophil countOrd ered By: Robi Duckworth on 05-20-2025 Neutrophils (Bld) [#/Vol] 7.3 10*3/uL 2.0-7.7 [facility] Anaerobic cultureOrdered By: Robi Duckworth on 05-20-2025 Bacteria identified Anaer cx Nom (Unsp spec) Lactobacillus hilgardii Abnormal [facility] Anion gap in Serum or Plasma Ordered By: Robi Friend on 05-20-2025 Anion gap [Moles/Vol] 14 mmol/L 5- [facility] Automated lymphocyte count a s percentage of total leukocytesOrdered By: Robi Friend on 05-20-2025 Lymphocytes/100 WBC Auto (Unsp spec) 37.6 % 19- [facility] BUN/creatinine ratioOrdered By: Robi Friend on 05-20-2025 Urea nitrogen/Creatinine [Mass ratio] 10.6 mg/mg 10-20 [facility] Basophil percentageOrdered B y: Robi Friend on 05-20-2025 Basophils/100 WBC (Bld) 0.6 % 0-1 [facility] Bilirubin, totalOrdered By: Robiketurah Dukcworth on 05-20-2025 Bilirubin [Mass/Vol] mg/dL 0.00-1.30 [facility] CBC W/Diff, Automatedon 04-27 PLT EST ADEQUATE Normal ADEQ [facility] Comment on above: Performed By: #### L 501.3620, L7000.5300, L501.6710, L504.2610, L100.0100, L2100.0000, L800.1280, L803.2200, L5500.0410, L500.4050, L501.9520, L3400.0700, L3300.0960, L3100.3425, L3300.1200, L503.6550, L101.9900, L3100.7000, L503.0106, L3100.6900, L3200.1100 #### [facility] [address] [place], [place], [id number] CPK Total, Creatine Kinaseon 05-20-2025 CPK TOTAL 51 U/L Normal 24-195 [facility] Comment on above: Performed By: #### L 501.3620, L7000.5300, L501.6710, L504.2610, L100.0100, L2100.0000, L800.1280, L803.2200, L5500.0410, L500.4050, L501.9520, L3400.0700, L3300.0960, L3100.3425, L3300.1200, L503.6550, L101.9900, L3100.7000, L503.0106, L3100.6900, L3200.1100 #### [facility] [address] [place], [address] CRPon 05-20-2025 C-REACTIVE PROT 23.80 mg/L High 0.0-3.0 [facility] Comment on above: Performed By: #### L 501.3620, L7000.5300, L501.6710, L504.2610, L100.0100, L2100.0000, L800.1280, L803.2200, L5500.0410, L500.4050, L501.9520, L3400.0700, L3300.0960, L3100.3425, L3300.1200, L503.6550, L101.9900, L3100.7000, L503.0106, L3100.6900, L3200.1100 #### [facility] [address] [place], [address] Carbon dioxide, total [Moles /volume] in Central venous bloodOrdered By: Robi Duckworth on 05-20-2025 CO2 [Moles/Vol] 20.8 mmol/L Low 21.0-32.0 [facility] Chloride assayOrdered By: Ra davie Duckworth on 05-20-2025 Chloride [Moles/Vol] 104 mmol/L 98-108 [facility] Comprehensive Metabolic Prof ilon 05-20-2025 Albumin [Mass/Vol] 3.9 g/dL Normal 3.4-4.8 [facility] Comment on above: Performed By: #### L 501.3620, L7000.5300, L501.6710, L504.2610, L100.0100, L2100.0000, L800.1280, L803.2200, L5500.0410, L500.4050, L501.9520, L3400.0700, L3300.0960, L3100.3425, L3300.1200, L503.6550, L101.9900, L3100.7000, L503.0106, L3100.6900, L3200.1100 #### [facility] [address] [place], [place], [phone] (679) Albumin/Globulin [Mass ratio] 1.3 {ratio} Normal 0.9-2.4 [facility] Comment on above: Performed By: #### L 501.3620, L7000.5300, L501.6710, L504.2610, L100.0100, L2100.0000, L800.1280, L803.2200, L5500.0410, L500.4050, L501.9520, L3400.0700, L3300.0960, L3100.3425, L3300.1200, L503.6550, L101.9900, L3100.7000, L503.0106, L3100.6900, L3200.1100 #### [facility] [address] [place], [address] ALK PHOS 94 U/L Normal 35-104 [facility] Comment on above: Performed By: #### L 501.3620, L7000.5300, L501.6710, L504.2610, L100.0100, L2100.0000, L800.1280, L803.2200, L5500.0410, L500.4050, L501.9520, L3400.0700, L3300.0960, L3100.3425, L3300.1200, L503.6550, L101.9900, L3100.7000, L503.0106, L3100.6900, L3200.1100 #### [facility] [address] [place], [place], [id number] ALT [Catalytic activity/Vol] 14 U/L Normal <=34 [facility] Comment on above: Performed By: #### L 501.3620, L7000.5300, L501.6710, L504.2610, L100.0100, L2100.0000, L800.1280, L803.2200, L5500.0410, L500.4050, L501.9520, L3400.0700, L3300.0960, L3100.3425, L3300.1200, L503.6550, L101.9900, L3100.7000, L503.0106, L3100.6900, L3200.1100 #### [facility] [address] [facility] [place], [place], [id number] AST [Catalytic activity/Vol] 17 U/L Normal <=31 [facility] Comment on above: Performed By: #### L 501.3620, L7000.5300, L501.6710, L504.2610, L100.0100, L2100.0000, L800.1280, L803.2200, L5500.0410, L500.4050, L501.9520, L3400.0700, L3300.0960, L3100.3425, L3300.1200, L503.6550, L101.9900, L3100.7000, L503.0106, L3100.6900, L3200.1100 #### [facility] [address] [facility] [place], [address] BUN/CRE 10.6 RATIO Normal 10-20 [facility] Comment on above: Performed By: #### L 501.3620, L7000.5300, L501.6710, L504.2610, L100.0100, L2100.0000, L800.1280, L803.2200, L5500.0410, L500.4050, L501.9520, L3400.0700, L3300.0960, L3100.3425, L3300.1200, L503.6550, L101.9900, L3100.7000, L503.0106, L3100.6900, L3200.1100 #### [facility] [address] [place], [address] Calcium [Mass/Vol] 9.0 mg/dL Normal 7.6-11.0 [facility] Comment on above: Performed By: #### L 501.3620, L7000.5300, L501.6710, L504.2610, L100.0100, L2100.0000, L800.1280, L803.2200, L5500.0410, L500.4050, L501.9520, L3400.0700, L3300.0960, L3100.3425, L3300.1200, L503.6550, L101.9900, L3100.7000, L503.0106, L3100.6900, L3200.1100 #### [facility] [address] [place], [place], [phone] (529) Chloride [Moles/Vol] 104 mmol/L Normal 98-108 [facility] Comment on above: Performed By: #### L 501.3620, L7000.5300, L501.6710, L504.2610, L100.0100, L2100.0000, L800.1280, L803.2200, L5500.0410, L500.4050, L501.9520, L3400.0700, L3300.0960, L3100.3425, L3300.1200, L503.6550, L101.9900, L3100.7000, L503.0106, L3100.6900, L3200.1100 #### [facility] [address] [place], [place], [phone] (322) CO2 [Moles/Vol] 20.8 mmol/L Low 21.0-32.0 [facility] Comment on above: Performed By: #### L 501.3620, L7000.5300, L501.6710, L504.2610, L100.0100, L2100.0000, L800.1280, L803.2200, L5500.0410, L500.4050, L501.9520, L3400.0700, L3300.0960, L3100.3425, L3300.1200, L503.6550, L101.9900, L3100.7000, L503.0106, L3100.6900, L3200.1100 #### [facility] [address] [place], [place], [id number] Creatinine [Mass/Vol] 0.73 mg/dL Normal 0.70-1.20 [facility] Comment on above: Performed By: #### L 501.3620, L7000.5300, L501.6710, L504.2610, L100.0100, L2100.0000, L800.1280, L803.2200, L5500.0410, L500.4050, L501.9520, L3400.0700, L3300.0960, L3100.3425, L3300.1200, L503.6550, L101.9900, L3100.7000, L503.0106, L3100.6900, L3200.1100 #### [facility] [address] [place], [address] GAP 14 Normal 5-15 [facility] Comment on above: Performed By: #### L 501.3620, L7000.5300, L501.6710, L504.2610, L100.0100, L2100.0000, L800.1280, L803.2200, L5500.0410, L500.4050, L501.9520, L3400.0700, L3300.0960, L3100.3425, L3300.1200, L503.6550, L101.9900, L3100.7000, L503.0106, L3100.6900, L3200.1100 #### [facility] [address] [place], [address] GFR/1.73 sq M.predicted among non-blacks MDRD (S/P/Bld) [Vol rate/Area] 94 mL/min/{1.73_m2} Normal >60 [facility] Comment on above: Result Comment: mL/m in/1.73m2 CKD-EPI Creatinine Equation (2020) Performed By: #### L 501.3620, L7000.5300, L501.6710, L504.2610, L100.0100, L2100.0000, L800.1280, L803.2200, L5500.0410, L500.4050, L501.9520, L3400.0700, L3300.0960, L3100.3425, L3300.1200, L503.6550, L101.9900, L3100.7000, L503.0106, L3100.6900, L3200.1100 #### [facility] [address] [facility] [place], [place], [id number] (907) Globulin (S) [Mass/Vol] 3.1 g/dL Normal 2.2-4.2 [facility] Comment on above: Performed By: #### L 501.3620, L7000.5300, L501.6710, L504.2610, L100.0100, L2100.0000, L800.1280, L803.2200, L5500.0410, L500.4050, L501.9520, L3400.0700, L3300.0960, L3100.3425, L3300.1200, L503.6550, L101.9900, L3100.7000, L503.0106, L3100.6900, L3200.1100 #### [facility] [address] [place], [place], [id number] Glucose [Mass/Vol] 92 mg/dL Normal 70-99 [facility] Comment on above: Performed By: #### L 501.3620, L7000.5300, L501.6710, L504.2610, L100.0100, L2100.0000, L800.1280, L803.2200, L5500.0410, L500.4050, L501.9520, L3400.0700, L3300.0960, L3100.3425, L3300.1200, L503.6550, L101.9900, L3100.7000, L503.0106, L3100.6900, L3200.1100 #### [facility] [address] [place], [place], [id number] (617) Potassium [Moles/Vol] 3.3 mmol/L Normal 3.3-5.1 [facility] Comment on above: Performed By: #### L 501.3620, L7000.5300, L501.6710, L504.2610, L100.0100, L2100.0000, L800.1280, L803.2200, L5500.0410, L500.4050, L501.9520, L3400.0700, L3300.0960, L3100.3425, L3300.1200, L503.6550, L101.9900, L3100.7000, L503.0106, L3100.6900, L3200.1100 #### [facility] [address] [place], [place], [phone] ([phone] Sodium [Moles/Vol] 138 mmol/L Normal 133-145 [facility] Comment on above: Performed By: #### L 501.3620, L7000.5300, L501.6710, L504.2610, L100.0100, L2100.0000, L800.1280, L803.2200, L5500.0410, L500.4050, L501.9520, L3400.0700, L3300.0960, L3100.3425, L3300.1200, L503.6550, L101.9900, L3100.7000, L503.0106, L3100.6900, L3200.1100 #### [facility] [address] [place], [place], [phone] (530) T BILI < 0.15 Normal 0.00-1.30 [facility] Comment on above: Performed By: #### L 501.3620, L7000.5300, L501.6710, L504.2610, L100.0100, L2100.0000, L800.1280, L803.2200, L5500.0410, L500.4050, L501.9520, L3400.0700, L3300.0960, L3100.3425, L3300.1200, L503.6550, L101.9900, L3100.7000, L503.0106, L3100.6900, L3200.1100 #### [facility] [address] [facility] [place], [address] (894) T PROT 6.9 g/dL Normal 5.9-8.4 [facility] Comment on above: Performed By: #### L 501.3620, L7000.5300, L501.6710, L504.2610, L100.0100, L2100.0000, L800.1280, L803.2200, L5500.0410, L500.4050, L501.9520, L3400.0700, L3300.0960, L3100.3425, L3300.1200, L503.6550, L101.9900, L3100.7000, L503.0106, L3100.6900, L3200.1100 #### [facility] [address]. [place], [place], [id number] [phone] Urea nitrogen [Mass/Vol] 8 mg/dL Normal 4-19 [facility] Comment on above: Performed By: #### L 501.3620, L7000.5300, L501.6710, L504.2610, L100.0100, L2100.0000, L800.1280, L803.2200, L5500.0410, L500.4050, L501.9520, L3400.0700, L3300.0960, L3100.3425, L3300.1200, L503.6550, L101.9900, L3100.7000, L503.0106, L3100.6900, L3200.1100 #### [facility] [address] [place], [address] Eosinophil percentageOrdered By: Robi Duckworth on 05-20-2025 Eosinophils/100 WBC (Bld) 2.9 % 0-5 [facility] Erythrocyte Sed Rateon 05-20 SED RATE 37 mm/hr High 0-30 [facility] Comment on above: Performed By: #### M 100.2000, M100.4001, M100.2800 #### [facility] [address] [place], [address] Erythrocyte distribution wid th ratioOrdered By: Robiketurah Duckworth on 05-20-2025 Erythrocyte distribution width (RBC) [Ratio] 13.3 % 11.6-14.6 [facility] Erythrocyte distribution wid th standard deviationOrdered By: Robiketurah Duckworth on 05-20-2025 Erythrocyte distribution width (RBC) [Ratio] 42.5 fl 35.1-43.9 [facility] Erythrocyte sedimentation ra teOrdered By: Robi Duckworth on 05-20-2025 ESR (Bld) [Velocity] 37 mm/h High 0-30 [facility] Eye cultureOrdered By: Saskia Duckworth on 05-20-2025 Source specific culture Staphylococcus epidermidis Abnormal [facility] Source specific culture Enterococcus casseliflavus (D) Abnormal [facility] Source specific culture Staphylococcus hominis hominis Abnormal [facility] Ferritinon 05-20-2025 Ferritin [Mass/Vol] 37 ng/mL Normal 22-378 [facility] Comment on above: Performed By: #### M 100.1999, M100.4001, M100.2800 #### [facility] [address] [place], [address] Gastroenterology Visit Repor ton 05-20-2025 Gastroenterology Visit Report [facility] Gastroenterology [address] [place] [address] OFFICE VISIT Date of Service: 05/20/25 MR#: [id number] Acct: [id number] Name: GABBY SPENCE Rep #: [id number] : 1965 Provider: Robi Friend, DO Age/Sex: 60/F [place] [facility] [place] [place]: Signed Intake Vital Signs 01/10/23 13:57 Height 5 ft 7 in Intake Visit Reasons: ABDOMINAL PAIN DIARRHEA Allergies sulfadiazine Allergy (Verified 01/09/23 09:55) Rash Medications ???Medication ???Instructions ???Recorded ???Confirmed ???Type amlodipine 10 mg tablet 10 mg PO DAILY BLOOD PRESSURE 06/2805/20/25 History furosemide 20 mg tablet 20 mg PO DAILY FLUID 05/25/2004/27 History cyanocobalamin (vitamin B-12) 3,000 mcg PO DAILY SUPPLEMENT 12/2505/20/25 History 1,000 mcg tablet (Vitamin B-12) gabapentin 600 mg tablet 600 mg PO TID NERVE PAIN 01/09/23 05/20/25 History mrdduxxm-kiak-snap 8 mg-folic 400 1 tab PO DAILY HEALTH MAINTENANCE 01/09/23 05/20/25 History mcg-K 50 mcg-lutein 300 mcg tablet (Centrum Silver Women) naproxen sodium 220 mg tablet 440 mg PO BID BACK PAIN 01/09/23 0 05/20/25 History (Aleve) pantoprazole 40 mg tablet,delayed 40 mg PO DAILY ACID REFLUX 05/20/25 History release zinc acetate 50 mg (zinc) capsule 50 mg PO DAILY SUPPLEMENT 3 05/20/25 History escitalopram oxalate 5 mg tablet 5 mg PO QDAY 05/20/25 05/20/25 His tory (Lexapro) ON LICENSE OF [facility] Medical History (Updated 01/19/23 @ 00:01 by Background Riley) Substance abuse Anxiety History of IBS Family History (Updated 01/09/23 @ 15:[address] Jose Hinojosa MD) Other Colon cancer Heart disease Social History Smoking Status: Current every day smoker tobacco type: cigarettes HPI HPI Details: GABBY SPENCE, is a 60 F who presents to the office today for initial consult. *BGI established 7.25.25 pt presents with history of ulcerative pancolitis and chronic diarrhea. Pt reports that she has tried Mesalamine before and it was not effective. Pt states that her last colonoscopy was about 5 years ago. Pt reports that she has watery diarrhea every morning. pt reports that mother had Crohn's disease and father had colon cancer. Pt reports that she thinks she has a parasite because she keeps finding bugs in her eyes. Pt reports that she has smoked 1/2 PPD of cigarettes for the past 40 years, reports daily marijuana use. ROS Const Constitutional: Positive for fatigue, headache(s) and weight change (weight loss); No fever(s) ENT ENT: Positive for headache(s); No difficulty swallowing Cardio Cardiology: Positive for leg pain with exertion Gastro GI: Positive for abdominal pain, bloating, diarrhea, heartburn, excessive flatus, nausea/dyspepsia and vomiting; No belching, change in bowel habits, change in stool character, coffee ground emesis, constipation, cramping, difficulty swallowing, feeling full early, incontinent of stools, Vomiting blood/hematemesis, Blood in stool, loose stools, Black,tarry stools, pain with swallowing or other Musc Musculoskeletal: Positive for joint pain, back pain, joint swelling, muscle cramps, muscle weakness, numbness, stiffness, tingling, Arthritis, sciatica and leg pain with exertion Skin Skin: Positive for dry skin and itchy eyes; No yellowing of the eye Neuro Neurology: Positive for headache(s), numbness and tingling Psych Psychiatric: Positive for anxiety, Positive for depression and Positive for hyperactivity Endo Endocrine: Positive for fatigue and weight change (weight loss) Aller/Imm Allergy/Immunologic: Positive for itchy eyes Myles/Lymp Hematologic/Lymphatic: Positive for easy bleeding and easy bruising Exam Const General: cooperative, healthy appearing and comfortable Eyes General: appearance normal, both eyes and all related structures Sclera: sclerae normal Neck Neck: normal visual inspection Chest Chest palpation inspection: normal inspection of the chest Resp Effort Inspection: normal respiratory effort Auscultation: Bilateral: Clear to Auscultation Cardio Rate: regular rate Rhythm: regular rhythm GI Inspection: normal to inspection Auscultation: normal bowel sounds Percussion: normal to percussion Palpation: no hepatosplenomegaly Assessment and Plan Assessment and Plan (1) Ulcerative colitis: Status: Chronic (2) Chronic pain: Status: Chronic Plan: 60-year-old woman, reports ongoing chronic pain described as a generalized ache throughout her body, primarily affecting her joints and muscles, which she rates as 7/10 at its worst. The pain is worse with activity and improves slightly with rest, heat, and gentle massage. She also reports severe chronic fatigue, which has been pers (more content not included)... Normal [facility] Glomerular filtration rate ( GFR) estimation/1.73 sq m using serum, plasma, or whole bOrdered By: Robi Duckworth on 05-20-2025 GFR/1.73 sq M.predicted among non-blacks MDRD (S/P/Bld) [Vol rate/Area] 94 mL/min/{1.73_m2} >60 [facility] Comment on above: mL/min/1.73m2 CKD-EP I Creatinine Equation (2020) Gram stainOrdered By: Ila Duckworth on 05-20-2025 Microscopic observation Gram stain Nom (Unsp spec) [facility] Hematocrit Auto (Bld) [Volum e fraction]Ordered By: Robi Duckworth on 05-20-2025 Hematocrit (Bld) [Volume fraction] 37.1 % 37-47 [facility] Hemoglobin measurementOrdere d By: Robi Duckworth on 05-20-2025 Hemoglobin (Bld) [Mass/Vol] 12.6 g/dL 12.0-15.0 [facility] Immature granulocytes/100 WB C Auto (Bld)Ordered By: Robi Duckworth on 05-20-2025 Immature granulocytes/100 WBC (Bld) 0.400 % 0.0-0.9 [facility] Comment on above: IG% - Immature Granu locytes (promyelocytes, myelocytes and metamyelocytes) > 1% indicates that a LEFT SHIFT is Present. LDHon 05-20-2025 LDH 232 U/L Normal 84-246 [facility] Comment on above: Order Comment: 1 Performed By: #### L 501.3620, L7000.5300, L501.6710, L504.2610, L100.0100, L2100.0000, L800.1280, L803.2200, L5500.0410, L500.4050, L501.9520, L3400.0700, L3300.0960, L3100.3425, L3300.1200, L503.6550, L101.9900, L3100.7000, L503.0106, L3100.6900, L3200.1100 #### [facility] [address] [place], [address] Laboratory - Chemistry and C hemistry - challengeOrdered By: Robi Duckworth on 05-20-2025 AST [Catalytic activity/Vol] 17 U/L <32 [facility] - Miscellaneous t estsOrdered By: Robi Duckworth on 05-20-2025 Service comment (Unsp spec) [Interp] Comment . [facility] Comment on above: Levels of Specific I gE Class Description of Class ----- < 0.10 0 Negative 0.10 - 0.31 0/I Equivocal/Low 0.32 - 0.55 I Low 0.56 - 1.40 II Moderate 1.41 - 3.90 III High 3.91 - 19.00 IV Very High 19.01 - 100.00 V Very High >100.00 Very High Lactate dehydrogenase (LDH) measurementOrdered By: Robi Duckworth on 05-20-2025 LDH [Catalytic activity/Vol] 232 U/L 84-246 [facility] MCV (mean corpuscular volume ) determinationOrdered By: Robi Duckworth on 05-20-2025 MCV (RBC) [Entitic vol] 87.9 fL 81-99 [facility] Mean corpuscular hemoglobin (MCH) determinationOrdered By: Robi Duckworth on 05-20-2025 MCH (RBC) [Entitic mass] 29.9 pg 27.0-32.0 [facility] Mean corpuscular hemoglobin concentration (MCHC) determinationOrdered By: Robi Duckworth on 05-20-2025 MCHC (RBC) [Mass/Vol] 34.0 g/dL 32-36 [facility] Mean platelet volume determi nationOrdered By: Robi Duckworth on 05-20-2025 Platelet mean volume (Bld) [Entitic vol] 8.4 fL 6.2-12.0 [facility] Monocyte percentageOrdered B y: Robi Duckworth on 05-20-2025 Monocytes/100 WBC (Bld) 5.7 % 0-10 [facility] Neutrophil percentageOrdered By: Robi Duckworth on 05-20-2025 Neutrophils/100 WBC (Bld) 52.8 % 47-70 [facility] Nucleated red blood cell per centageOrdered By: Robi Duckworth on 05-20-2025 Nucleated RBC/100 WBC (Bld) [Ratio] 0 % 0-5 [facility] Platelet countOrdered By: Ra davie Duckworth on 05-20-2025 Platelets (Bld) [#/Vol] 410 10*3/uL 150-450 [facility] Platelet estimateOrdered By: Robi Duckworth on 05-20-2025 Platelets LM Ql (Bld) ADEQUATE ADEQ [facility] Potassium measurement (mass/ volume)Ordered By: Robi Duckworth on 05-20-2025 Potassium (Unsp spec) [Mass/Vol] 3.3 mmol/L 3.3-5.1 [facility] RBC Auto (Bld) [#/Vol]Ordere d By: Robi Duckworth on 05-20-2025 RBC (Bld) [#/Vol] 4.22 10*6/uL 4.2-5.4 [facility] Serum black walnut IgE antib mabel assay (units/volume)Ordered By: Robi Duckworth on 05-20-2025 Black [place] IgE Qn (S) <0.10 kU/L Class 0 [facility] Serum clam IgE antibody assa y (units/volume)Ordered By: Robi Duckworth on 05-20-2025 Clam IgE Qn (S) <0.10 kU/L Class 0 [facility] Serum codfish IgE antibody a ssay (units/volume)Ordered By: Robi Duckworth on 05-20-2025 Codfish IgE Qn (S) <0.10 kU/L Class 0 [facility] Serum corn IgE antibody assa y (units/volume)Ordered By: Robi Duckworth on 05-20-2025 [place] IgE Qn (S) <0.10 kU/L Class 0 [facility] Serum cow milk IgE antibody assay (units/volume)Ordered By: Robi Duckworth on 05-20-2025 Cow milk IgE Qn (S) <0.10 kU/L Class 0 [facility] Serum creatinine measurement (mass/volume)Ordered By: Robi Duckworth on 05-20-2025 Creatinine [Mass/Vol] 0.73 mg/dL 0.70-1.20 [facility] Serum egg white IgE antibody assay (units/volume)Ordered By: Robi Duckworth on 05-20-2025 Egg white IgE Qn (S) <0.10 kU/L Class 0 [facility] Serum globulin measurementOr dered By: Robi Duckworth on 05-20-2025 Globulin (S) [Mass/Vol] 3.1 g/dL 2.2-4.2 [facility] Serum glucose measurement (m ass/volume)Ordered By: Robi Duckworth on 05-20-2025 Glucose [Mass/Vol] 92 mg/dL 70-99 [facility] Serum mitochondria antibody detectionOrdered By: Robi Duckworth on 05-20-2025 Mitochondria Ab Ql (S) <20.0 Units 0.0-20.0 [facility] Comment on above: Negative 0.0 - 20.0 Equivocal 20.1 - 24.9 Positive >24.9Mitochondrial (M2) Antibodies are found in 90-96% ofpatients with primary biliary cirrhosis. Serum or plasma C reactive p rotein measurement (mass/volume)Ordered By: Robi Duckworth on 05-20-2025 CRP [Mass/Vol] 23.80 mg/L High 0.0-3.0 [facility] Serum or plasma alanine sampson otransferase (ALT) measurementOrdered By: Robi Duckworth on 05-20-2025 ALT [Catalytic activity/Vol] 14 U/L <35 [facility] Serum or plasma albumin paulino urement (mass/volume)Ordered By: Robi Duckworth on 05-20-2025 Albumin [Mass/Vol] 3.9 g/dL 3.4-4.8 [facility] Serum or plasma albumin/glob ulin mass ratioOrdered By: Robi Duckworth on 05-20-2025 Albumin/Globulin [Mass ratio] 1.3 {ratio} 0.9-2.4 [facility] Serum or plasma alkaline josse sphatase measurementOrdered By: Robi Duckworth on 05-20-2025 ALP [Catalytic activity/Vol] 94 U/L 35-104 [facility] Serum or plasma calcitriol m easurement (mass/volume)Ordered By: Robi Duckworth on 05-20-2025 1,25-dihydroxyvitamin D3 [Mass/Vol] 23.9 pg/mL Low 24.8-81.5 [facility] Serum or plasma calcium paulino urement (mass/volume)Ordered By: Robi Duckworth on 05-20-2025 Calcium [Mass/Vol] 9.0 mg/dL 7.6-11.0 [facility] Serum or plasma creatine kin ase activityOrdered By: Robi Duckworth on 05-20-2025 CK [Catalytic activity/Vol] 51 U/L 24-195 [facility] Serum or plasma ferritin clifford surement (mass/volume)Ordered By: Robi Duckworth on 05-20-2025 Ferritin [Mass/Vol] 37 ng/mL 22-378 [facility] Serum or plasma urea nitroge n measurement (mass/volume)Ordered By: Robi Duckworth on 05-20-2025 Urea nitrogen [Mass/Vol] 8 mg/dL 4-19 [facility] Serum peanut IgE antibody as say (units/volume)Ordered By: Robi Duckworth on 05-20-2025 Peanut IgE Qn (S) <0.10 kU/L Class 0 [facility] Serum soybean IgE antibody a ssay (units/volume)Ordered By: Robi Duckworth on 05-20-2025 Soybean IgE Qn (S) <0.10 kU/L Class 0 [facility] Serum wheat IgE antibody ass ay (units/volume)Ordered By: Robi Duckworth on 05-20-2025 Wheat IgE Qn (S) <0.10 kU/L Class 0 [facility] Sodium levelOrdered By: Dennis Mcmahon on 05-20-2025 Sodium [Moles/Vol] 138 mmol/L 133-145 [facility] TSH DL <= 0.005 mIU/L QnOrde red By: Robi Duckworth on 05-20-2025 TSH Qn 3.270 uIU/mL 0.300-4.20 0 [facility] Thyroid Stim Hormone (TSH)on 05-20-2025 TSH 3.270 uIU/mL Normal 0.300-4.20 0 [facility] Comment on above: Performed By: #### L 501.3620, L7000.5300, L501.6710, L504.2610, L100.0100, L2100.0000, L800.1280, L803.2200, L5500.0410, L500.4050, L501.9520, L3400.0700, L3300.0960, L3100.3425, L3300.1200, L503.6550, L101.9900, L3100.7000, L503.0106, L3100.6900, L3200.1100 #### [facility] [address] [place], [address] Total proteinOrdered By: Joao Duckworth on 05-20-2025 Protein [Mass/Vol] 6.9 g/dL 5.9-8.4 [facility] Vitamin B12on 05-20-2025 Cobalamin (Vitamin B12) [Mass/Vol] pg/mL High 180-914 [facility] Comment on above: Performed By: #### L 501.3620, L7000.5300, L501.6710, L504.2610, L100.0100, L2100.0000, L800.1280, L803.2200, L5500.0410, L500.4050, L501.9520, L3400.0700, L3300.0960, L3100.3425, L3300.1200, L503.6550, L101.9900, L3100.7000, L503.0106, L3100.6900, L3200.1100 #### [facility] [address] [facility] [place], [address] White blood cell (WBC) count Ordered By: Robi Duckworth on 05-20-2025 WBC (Bld) [#/Vol] 13.8 10*3/uL High 4.4-11.0 [facility] 05-12-2025 CNPN Telephone (FAMPWS) GABBY SPENCE ([id number]) 1965 F Date Time Provider Department 05/12/25 KHADIJAH CURRAN During your visit today, we recorded the following information about you: Jannie Donaldson RN 05/12/2025 10:27 AM Signed Patient calls and states that she has appointment with Dr. Duckworth on 05/20/2025. Patient has been having chronic Diarrhea issues and she is wanting to get colonoscopy done through [facility]. Patient is asking if provider can place referral and then fax referral to [facility]? Patient is also asking if provider can send in prescription for prednisone due to her chronic diarrhea issue? Please review and advise, MILO Marcano Stephanie, RN 05/12/2025 12:40 PM Signed See Nurse Triage note Khadijah Curran MD 05/12/2025 2:08 PM Signed OK for Gi referral as requested Will hold off on prednisone as I see she is going to the ER for evaluation MD Moose Staley Kathryn, MA 05/12/2025 2:31 PM Signed Pt notified. Referral faxed to [facility] Dr. Duckworth with Appt 05/20/25. Claire Virk MA Allergies As of Date: 05/12/2025 Noted Allergy Reaction WELLBUTRIN (BUPROPION HCL) 04/21/2019 8 - GI Upset Comments: Nausea and GI upset AZULFIDINE (SULFASALAZINE) 09/15/2007 4 - Hives Date Reviewed: 12/31/2024 Reviewed by: Claire Virk MA - Fully Assessed Reason for Visit: Orders [681] Primary Visit Diagnosis:Ulcerative pancolitis without complication (HCC) [K51.00] Other Visit Diagnosis:Diarrhea, unspecified type [R19.7] Order(s):CONSULT TO GASTROENTEROLOGY [9020] Order #: [id number]: 1 FUTURE Prescriptions as of 05/12/2025 - gabapentin (NEURONTIN) 600 mg tablet Take 1 tablet by mouth three times a day for 90 days. - amLODIPine (NORVASC) 10 mg tablet Take 1 tablet by mouth once daily. - Mesalamine (LIALDA) 1.2 gram EC tablet Take 2 tablets by mouth daily with breakfast. - escitalopram oxalate (LEXAPRO) 10 mg tablet Take 1 tablet by mouth once daily. - lisinopril (ZESTRIL) 10 mg tablet Take 1 tablet by mouth once daily. - cyclobenzaprine (FLEXERIL) 10 mg tablet Take 1 tablet by mouth three times a day as needed for muscle spasm. - pantoprazole DR (PROTONIX) 40 mg tablet Take 1 tablet by mouth once daily. Problem List As Of Date 05/12/2025 Noted Resolved Ulcerative colitis (HCC) [K51.90] 09/15/2007 Anxiety and depression [F41.9, F32.A] 11/30/2009 Back Pain [M54.9] 11/30/2009 Essential hypertension [I10] 11/10/2014 Smoker [F17.200] 11/22/2019 Hypotension [I95.9] 01/15/2023 Dehydration [E86.0] 01/15/2023 01/18/2023 Severe sepsis (HCC) [A41.9, R65.20] 01/15/2023 Colitis [K52.9] 01/16/2023 BRIJESH (acute kidney injury) (HCC) [N17.9] 01/16/2023 01/18/2023 Chronic low back pain [M54.50, G89.29] 01/16/2023 Encounter Status:Closed by CLAIRE VIRK on 05/12/25 Normal [facility] CBC W Auto Differential pane l (Bld)on 12-31-2024 Basophils (Bld) [#/Vol] 0.10 10*3/uL Normal <0.11 [facility] Comment on above: Order Comment: Speci men Type: BLOOD SPECIMEN Ordering Facility: [facility] Address: [address] [place] [address] Performed By: #### L [id number], 53972-2 #### [facility] CLIA [id number] [address] [place] [facility] Basophils/100 WBC (Bld) 0.6 % Normal [facility] Comment on above: Order Comment: Speci men Type: BLOOD SPECIMEN Ordering Facility: [facility] Address: [address] [place] [address] Performed By: #### L [id number], 89805-8 #### [facility] CLIA [id number] [address] [place] [facility] Differential cell count method Nom (Bld) Auto Normal [facility] Comment on above: Order Comment: Speci men Type: BLOOD SPECIMEN Ordering Facility: [facility] Address: [address] [place] [address] Performed By: #### L [id number], 89835-7 #### [facility] CLIA [id number] [address] [place] Eosinophils (Bld) [#/Vol] 0.59 10*3/uL High <0.46 [facility] Comment on above: Order Comment: Speci men Type: BLOOD SPECIMEN Ordering Facility: [facility] Address: [address] [place] [address] Performed By: #### L [id number], 74220-1 #### [facility] CLIA [id number] [address] [place] Eosinophils/100 WBC (Bld) 3.6 % Normal [facility] Comment on above: Order Comment: Speci men Type: BLOOD SPECIMEN Ordering Facility: [facility] Address: [address] [place] [address] Performed By: #### L [id number], 30299-1 #### [facility] CLIA [id number] [address] [place] Erythrocyte distribution width (RBC) [Ratio] 13.4 % Normal 11.5-15.0 [facility] Comment on above: Order Comment: Speci men Type: BLOOD SPECIMEN Ordering Facility: [facility] Address: [address] [place] [address] Performed By: #### L [id number], 83342-1 #### [facility] CLIA [id number] [address] [place] Hematocrit (Bld) [Volume fraction] 38.5 % Normal 36.0-46.0 [facility] Comment on above: Order Comment: Speci men Type: BLOOD SPECIMEN Ordering Facility: [facility] Address: [address] [place] [address] Performed By: #### L [id number], 96789-4 #### [facility] CLIA [id number] [address] [place] Hemoglobin (Bld) [Mass/Vol] 12.5 g/dL Normal 11.5-15.5 [facility] Comment on above: Order Comment: Speci men Type: BLOOD SPECIMEN Ordering Facility: [facility] Address: [address] [place] [address] Performed By: #### L [id number], 40345-8 #### [facility] CLIA [id number] [address] [place] Immature granulocytes (Bld) [#/Vol] 0.08 10*3/uL Normal <0.10 [facility] Comment on above: Order Comment: Speci men Type: BLOOD SPECIMEN Ordering Facility: [facility] Address: [address] [place] [address] Performed By: #### L [id number], 42146-5 #### [facility] CLIA [id number] [address] [place] Immature granulocytes/100 WBC (Bld) 0.5 % Normal [facility] Comment on above: Order Comment: Speci men Type: BLOOD SPECIMEN Ordering Facility: [facility] Address: [address] [place] [address] Performed By: #### L [id number], 70222-1 #### [facility] CLIA [id number] [address] [place] Lymphocytes (Bld) [#/Vol] 6.02 10*3/uL High 1.00-4.00 [facility] Comment on above: Order Comment: Speci men Type: BLOOD SPECIMEN Ordering Facility: [facility] Address: [address] [place] [address] Performed By: #### L [id number], 86046-7 #### [facility] CLIA [id number] [address] [place] Lymphocytes/100 WBC (Bld) 36.4 % Normal [facility] Comment on above: Order Comment: Speci men Type: BLOOD SPECIMEN Ordering Facility: [facility] Address: [address] [place] [address] Performed By: #### L [id number], 11975-9 #### [facility] CLIA [id number] [address] OF [facility] MCH (RBC) [Entitic mass] 29.8 pg Normal 26.0-34.0 [facility] Comment on above: Order Comment: Speci men Type: BLOOD SPECIMEN Ordering Facility: [facility] Address: [address] [place] [address] Performed By: #### L [id number], 71577-4 #### [facility] CLIA [id number] [address] [place] MCHC (RBC) [Mass/Vol] 32.5 g/dL Normal 30.5-36.0 [facility] Comment on above: Order Comment: Speci men Type: BLOOD SPECIMEN Ordering Facility: [facility] Address: [address] [place] [address] Performed By: #### L [id number], 64797-2 #### [facility] CLIA [id number] [address] [place] MCV (RBC) [Entitic vol] 91.9 fL Normal 80.0-100.0 [facility] Comment on above: Order Comment: Speci men Type: BLOOD SPECIMEN Ordering Facility: [facility] Address: [address] [place] [address] Performed By: #### L [id number], 61656-7 #### [facility] CLIA [id number] [address] [place] [address] [place] Monocytes (Bld) [#/Vol] 1.07 10*3/uL High <0.87 [facility] Comment on above: Order Comment: Speci men Type: BLOOD SPECIMEN Ordering Facility: [facility] Address: [address] [place] [address] Performed By: #### L [id number], 74102-7 #### [facility] CLIA [id number] [address] [place] Monocytes/100 WBC (Bld) 6.5 % Normal [facility] Comment on above: Order Comment: Speci men Type: BLOOD SPECIMEN Ordering Facility: [facility] Address: [address] [place] [address] Performed By: #### L [id number], 39673-3 #### [facility] CLIA [id number] [address] [place] [address] [place] Neutrophils (Bld) [#/Vol] 8.69 10*3/uL High 1.45-7.50 [facility] Comment on above: Order Comment: Speci men Type: BLOOD SPECIMEN Ordering Facility: [facility] Address: [address] [place] [address] Performed By: #### L [id number], 95484-6 #### [facility] CLIA [id number] [address] [place] [address] [place] Neutrophils/100 WBC (Bld) 52.4 % Normal [facility] Comment on above: Order Comment: Speci men Type: BLOOD SPECIMEN Ordering Facility: [facility] Address: [address] [place] [address] Performed By: #### L [id number], 99784-9 #### [facility] CLIA [id number] [address] [place] Nucleated RBC (Bld) [#/Vol] 10*3/uL Normal <0.01 [facility] Comment on above: Order Comment: Speci men Type: BLOOD SPECIMEN Ordering Facility: [facility] Address: [address] [place] [address] Performed By: #### L [id number], 01621-8 #### [facility] CLIA [id number] [address] [place] Nucleated RBC/100 WBC (Bld) [Ratio] 0.0 /100 WBC Normal [facility] Comment on above: Order Comment: Speci men Type: BLOOD SPECIMEN Ordering Facility: [facility] Address: [address] [place] [address] Performed By: #### L [id number], 07167-6 #### [facility] CLIA [id number] [address] [place] Platelet mean volume (Bld) [Entitic vol] 8.4 fL Low 9.0-12.7 [facility] Comment on above: Order Comment: Speci men Type: BLOOD SPECIMEN Ordering Facility: [facility] Address: [address] [place] [address] Performed By: #### L [id number], 94275-1 #### [facility] CLIA [id number] [address] [place] Platelets (Bld) [#/Vol] 416 10*3/uL High 150-400 [facility] Comment on above: Order Comment: Speci men Type: BLOOD SPECIMEN Ordering Facility: [facility] Address: [address] [place] [address] Performed By: #### L [id number], 22928-9 #### [facility] CLIA [id number] [address] [place] RBC (Bld) [#/Vol] 4.19 10*6/uL Normal 3.90-5.20 [facility] Comment on above: Order Comment: Speci men Type: BLOOD SPECIMEN Ordering Facility: [facility] Address: [address] [facility] [place] [address] Performed By: #### L [id number], 47551-8 #### [facility] CLIA [id number] [address] WBC (Bld) [#/Vol] 16.55 10*3/uL High 3.70-11.00 [facility] Comment on above: Order Comment: Speci men Type: BLOOD SPECIMEN Ordering Facility: [facility] Address: [address] [id number] Performed By: #### L [id number], 69529-9 #### [facility] CLIA [id number] [address] CNOVon 12-31-2024 CNOV Office Visit (FAMPWS ) GABBY SPENCE ([id number]) 1965 F Date Time Provider Department 12/31/24 2:40 PM [facility] During your visit today, we recorded the following information about you: Pulse Respiration Blood pressure Weight 82/minute 16/minute 146/88 90.8 kg Khadijah Curarn MD 12/31/2024 4:06 PM Signed Chief Complaint Patient presents with: Medication Follow-up Immunizations: Flu vaccination HPI Gabby Wilburn Lang is a 59 year old female who presents here today for medication follow up. Working at [employer] in [place] [employer]. She loves it. She quit working at [employer] after about 30 years there. Smoking about 8 cigarettes a day. No urinary issues. Has chronic GI issues. Has been having mores issues with diarrhea. Would like a dose of prednisone to help calm her colon down. No longer using Lialda 1.2 gram 2 pills daily which would help some with the diarrhea. She feels like a lot of her bowel issues are stress related. Has not followed with GI for a while; has a doctor in [place] that she would like to follow with; was seen by her when hospitalized. Taking Protonix 40 mg daily. JOSE/Depression: Taking Lexapro 5 mg daily. She feels she is doing well on the Lexapro but would like to increase the dosage. States she would like to get on Ativan or something like that to help with her nerves but was advised we do not use those medications anymore. Pain: Chronic back pain, no longer on [place]. Taking Gabapentin 600 mg 1 pill TID and Baclofen 10 mg prn. HTN: Taking Norvasc 10 mg daily. Checking BP at home with readings running 167/98. No chest pains, dizziness, or SOB. She was on Lisinopril in the past but believes that was stopped several years ago when she was hospitalized. Past medical history, appointments, medications, allergies reviewed. Previous Medical History PAST MEDICAL HISTORY Diagnosis Date Anxiety Back pain Diastolic dysfunction 10/2017 EF 65%, stage 1 diastolic dysfunction per Echo History of colonoscopy 02/25/2008 Done at [facility]/Dr. Vo Ulcerative colitis, unspecified Ulcerative colitis Previous Surgical History PAST SURGICAL HISTORY Procedure Laterality Date COLONOSCOPY Every 3 years, Dr White in [place] COLONOSCOPY 08/13/2017 EGD, Dr. White, Normal COLONOSCOPY FLX DX W/COLLJ SPEC WHEN PFRMD 08/19/[address] White - info scanned Family History FAMILY HISTORY Problem Relation Age of Onset Cancer Mother Cancer Father Heart disease Brother 3 brothers - 52years old 53 yesr old and 54 years old Patient Allergies ALLERGIES Allergen Reactions Wellbutrin [Bupropi* GI Upset Nausea and GI upset Azulfidine [Sulfasa* Hives Current Medications Current Outpatient Medications on File Prior to Visit Medication Sig pantoprazole DR (PROTONIX) 40 mg tablet Take 1 tablet by mouth once daily. gabapentin (NEURONTIN) 600 mg tablet Take 1 tablet by mouth three times a day for 90 days. baclofen 10 mg tablet Take 1 tablet by mouth three times a day as needed (muscle spasms). amLODIPine (NORVASC) 10 mg tablet Take 1 tablet by mouth once daily. escitalopram oxalate (LEXAPRO) 5 mg tablet Take 1 tablet by mouth once daily. Mesalamine (LIALDA) 1.2 gram EC tablet Take 2 tablets by mouth daily with breakfast. No current facility-administered medications on file prior to visit. Social History Social History Tobacco Use Smoking status: Every Day Current packs/day: 1.00 Average packs/day: 1 pack/day for 43.2 years (43.2 ttl pk-yrs) Types: Cigarettes Start date: 10/27/1981 Smokeless tobacco: Never Tobacco comments: Cut back to 9-10 cigarettes per day Vaping Use Vaping status: Never Used Substance Use Topics Alcohol use: Yes Comment: once in a while Drug use: No EXAM: BP 146/88 Pulse 82 Resp 16 Wt 90.8 kg (200 lb 2.8 oz) LMP 07/14/2013 BMI 31.35 kg/m? General Appearance: Well appearing, alert, in no acute distress, well-hydrated, well nourished. and Overweight. Lungs: Lungs clear to auscultation. No wheezing, rhonchi, rales.. Heart: RRR without murmur, gallop, or rubs. No ectopy. Abdomen: soft, increased abd sounds, minimal mid to lower tenderness. Health Maintenance List HIV Screening Never done BP Controlled (<130/80) Never done Lung Cancer Screening Never done Shingrix Vaccine(1 of 2) Never done Pneumococcal Vaccine: 50+(2 of 2 - PPSV23) due on 10/12/2015 Cervical Cancer Screening due on 11/18/2016 Mammogram Screening due on 02/19/2022 DTaP,Tdap,Td Vaccine(2 - Td or Tdap) due on 06/30/2022 Influenza Vaccine(1) due on 06/27/2024 Covid-19 Vaccine(3 - 2023- season) due on 06/27/2024 Annual PCP Team Chronic Disease Visit due on 11/28/2024 Colorectal Cancer Screening due on 07/26/2025 Diabetes Screening due on 11/28/2026 Lipid Screening due on 07/15/2028 Hepatitis C Scr (more content not included)... Normal [facility] Comprehensive metabolic 2000 panelon 12-31-2024 Albumin [Mass/Vol] 4.0 g/dL Normal 3.9-4.9 [facility] Comment on above: Order Comment: Speci men Type: BLOOD SPECIMEN Ordering Facility: [facility] Address: [address] [place] [address] Performed By: #### 2 4323-8, LIPNF #### [facility] CLIA [id number] [address] [place] ALP [Catalytic activity/Vol] 112 U/L Normal 34-123 [facility] Comment on above: Order Comment: Speci men Type: BLOOD SPECIMEN Ordering Facility: [facility] Address: [address] [place] [address] Performed By: #### 2 4323-8, LIPNF #### [facility] CLIA [id number] [address] [place] ALT With P-5'-P [Catalytic activity/Vol] 16 U/L Normal 7-38 [facility] Comment on above: Order Comment: Speci men Type: BLOOD SPECIMEN Ordering Facility: [facility] Address: [address] [place] [address] Performed By: #### 2 4323-8, LIPNF #### [facility] CLIA [id number] 1 [place] [address] [place] Anion gap [Moles/Vol] 12 mmol/L Normal 8-15 [facility] Comment on above: Order Comment: Speci men Type: BLOOD SPECIMEN Ordering Facility: [facility] Address: [address] [place] [address] Performed By: #### 2 4323-8, LIPNF #### [facility] CLIA [id number] 1 [place] [address] [place] AST With P-5'-P [Catalytic activity/Vol] 24 U/L Normal 13-35 [facility] Comment on above: Order Comment: Speci men Type: BLOOD SPECIMEN Ordering Facility: [facility] Address: [address] [place] [address] Performed By: #### 2 4323-8, LIPNF #### [facility] CLIA [id number] [address] [place] [address] [place] Bilirubin [Mass/Vol] 0.2 mg/dL Normal 0.2-1.3 [facility] Comment on above: Order Comment: Speci men Type: BLOOD SPECIMEN Ordering Facility: [facility] Address: [address] [place] [address] Performed By: #### 2 4323-8, LIPNF #### [facility] CLIA [id number] 1 [place] [address] [place] Calcium [Mass/Vol] 9.1 mg/dL Normal 8.5-10.2 [facility] Comment on above: Order Comment: Speci men Type: BLOOD SPECIMEN Ordering Facility: [facility] Address: [address] [place] [address] Performed By: #### 2 4323-8, LIPNF #### [facility] CLIA [id number] 1 [place] [address] [place] Chloride [Moles/Vol] 103 mmol/L Normal 98-107 [facility] Comment on above: Order Comment: Speci men Type: BLOOD SPECIMEN Ordering Facility: [facility] Address: [address] [place] [address] Performed By: #### 2 4323-8, LIPNF #### [facility] CLIA [id number] 1 [place] [address] [place] CO2 [Moles/Vol] 22 mmol/L Normal 22-30 [facility] Comment on above: Order Comment: Speci men Type: BLOOD SPECIMEN Ordering Facility: [facility] Address: [address] [place] [address] Performed By: #### 2 4323-8, LIPNF #### [facility] CLIA [id number] [address] [place] [address] [place] Creatinine [Mass/Vol] 0.81 mg/dL Normal 0.58-0.96 [facility] Comment on above: Order Comment: Speci men Type: BLOOD SPECIMEN Ordering Facility: [facility] Address: [address] [place] [address] Performed By: #### 2 4323-8, LIPNF #### [facility] CLIA [id number] [address] [place] [address] [place] Creatinine and Glomerular filtration rate.predicted panel (S/P/Bld) 84 mL/min/1.73m??? Normal >=60 [facility] Comment on above: Order Comment: Abril denis Type: BLOOD SPECIMEN Ordering Facility: [facility] Address: [address] [place] [address] Result Comment: Christie mated Glomerular Filtration Rate (eGFR) is calculated using the 2020 CKD-EPI creatinine equation. This equation utilizes serum creatinine, sex, and age as parameters. The creatinine assay has traceable calibration to isotope dilution-mass spectrometry. Refer to KDIGO guidelines for clinical interpretation. In patients with unstable renal function, e.g. those with acute kidney injury, the eGFR may not accurately reflect actual GFR. Performed By: #### 2 4323-8, LIPNF #### [facility] CLIA [id number] 1 [place] [address] [place] Glucose [Mass/Vol] 65 mg/dL Low 74-99 [facility] Comment on above: Order Comment: Abril denis Type: BLOOD SPECIMEN Ordering Facility: [facility] Address: [address] [place] [address] Result Comment: The [place] Diabetes [employer] (ADA) provides guidance for cutoff values for fasting glucose and random glucose. The ADA defines fasting as no caloric intake for at least 8 hours. Fasting plasma glucose results between 100 to 125 mg/dL indicate increased risk for diabetes (prediabetes). Fasting plasma glucose results greater than or equal to 126 mg/dL meet the criteria for diagnosis of diabetes. In the absence of unequivocal hyperglycemia, results should be confirmed by repeat testing. In a patient with classic symptoms of hyperglycemia or hyperglycemic crisis, random plasma glucose results greater than or equal to 200 mg/dL meet the criteria for diagnosis of diabetes. Reference: Standards of Medical Care in Diabetes 2016, [place] [employer]. Diabetes Care. 2016.39(Suppl 1). Performed By: #### 2 4323-8, LIPNF #### [facility] CLIA [id number] [address] [place] [address] [place] Potassium [Moles/Vol] 3.7 mmol/L Normal 3.7-5.1 [facility] Comment on above: Order Comment: Speci men Type: BLOOD SPECIMEN Ordering Facility: [facility] Address: [address] [place] [address] Performed By: #### 2 4323-8, LIPNF #### [facility] CLIA [id number] [address] [place] Protein [Mass/Vol] 7.0 g/dL Normal 6.3-8.0 [facility] Comment on above: Order Comment: Speci men Type: BLOOD SPECIMEN Ordering Facility: [facility] Address: [address] [place] [address] Performed By: #### 2 4323-8, LIPNF #### [facility] CLIA [id number] [address] [place] [address] [place] Sodium [Moles/Vol] 137 mmol/L Normal 136-144 [facility] Comment on above: Order Comment: Speci men Type: BLOOD SPECIMEN Ordering Facility: [facility] Address: [address] [place] [address] Performed By: #### 2 4323-8, LIPNF #### [facility] CLIA [id number] [address] [place] [address] [place] Urea nitrogen [Mass/Vol] 12 mg/dL Normal 7-21 [facility] Comment on above: Order Comment: Speci men Type: BLOOD SPECIMEN Ordering Facility: [facility] Address: [address] [place] [address] Performed By: #### 2 4323-8, LIPNF #### [facility] CLIA [id number] 1 [place] [address] [place] LIPID PANEL, NONFASTINGon Cholesterol [Mass/Vol] 218 mg/dL High <200 [facility] Comment on above: Order Comment: Speci men Type: BLOOD SPECIMEN Ordering Facility: [facility] Address: [address] [place] [address] Result Comment: <200 mg/dL, Desirable 200-239 mg/dL, Borderline high >239 mg/dL, High Performed By: #### 2 4323-8, LIPNF #### [facility] CLIA [id number] [address] HDL CHOLESTEROL, NF 48 mg/dL Normal >39 [facility] Comment on above: Order Comment: Abril men Type: BLOOD SPECIMEN Ordering Facility: [facility] Address: [address] [place] [address] Result Comment: 40-5 9 mg/dL, Acceptable >59 mg/dL, High: Negative risk factor for coronary heart disease <40 mg/dL, Low: Positive risk factor for coronary heart disease Performed By: #### 2 4323-8, LIPNF #### [facility] CLIA [id number] [address] LDL CHOLESTEROL, NF 118 mg/dL High <100 [facility] Comment on above: Order Comment: Abril [facility] Type: BLOOD SPECIMEN Ordering Facility: [facility] Address: [address] [place] [address] Result Comment: <100 mg/dL, Optimal 100-129 mg/dL, Near optimal/above optimal 130-159 mg/dL, Borderline high 160-189 mg/dL, High >189 mg/dL, Very high Secondary prevention optimal LDL Cholesterol levels are recommended to be < 70 mg/dL Performed By: #### 2 4323-8, LIPNF #### [facility] CLIA [id number] [address] LDL/HDL RATIO, NF 2.46 mg/dL Normal <2.[address] [facility] Comment on above: Order Comment: Abril [facility] Type: BLOOD SPECIMEN Ordering Facility: [facility] Address: [address] [place] [address] Result Comment: Refe rence: 1. National Cholesterol Education Program ATP III Guideline At-A-Glance Quick Desk Reference: National Heart, Lung, and Blood Xenia. National Institutes of Health. 2001: NIH Publication No. 01-3305. 2. An International Atherosclerosis Society position paper: global recommendations for the management of dyslipidemia: executive summary, Atherosclerosis. 2014: 232(2):410-413. Performed By: #### 2 4323-8, LIPNF #### [facility] CLIA [id number] [address] [place] NON HDL CHOL, NF 170 mg/dL High <130 [facility] Comment on above: Order Comment: Speci men Type: BLOOD SPECIMEN Ordering Facility: [facility] Address: [address] [place] [address] Result Comment: <130 mg/dL, Optimal 130-159 mg/dL, Near optimal/above optimal 160-189 mg/dL, Borderline high 190-219 mg/dL, High >219 mg/dL, Very high Secondary prevention optimal non HDL Cholesterol levels are recommended to be <100 mg/dL Performed By: #### 2 4323-8, LIPNF #### [facility] CLIA [id number] [address] OF [facility] T CHOL/HDL RATIO NF 4.54 mg/dL Normal <5.10 [facility] Comment on above: Order Comment: Speci men Type: BLOOD SPECIMEN Ordering Facility: [facility] Address: [address] [place] [address] Performed By: #### 2 4323-8, LIPNF #### [facility] CLIA [id number] [address] [place] TRIGLYCERIDES, NF 260 mg/dL High <[address] [facility] Comment on above: Order Comment: Speci men Type: BLOOD SPECIMEN Ordering Facility: [facility] Address: [address] [place] [address] Result Comment: <150 mg/dL, Normal 150-199 mg/dL, Borderline high 200-499 mg/dL, High >499 mg/dL, Very high Performed By: #### 2 4323-8, LIPNF #### [facility] CLIA [id number] [address] [place] VLDL CHOLESTEROL, NF 52 mg/dL High <30 [facility] Comment on above: Order Comment: Speci men Type: BLOOD SPECIMEN Ordering Facility: [facility] Address: [address] [place] [address] Performed By: #### 2 4323-8, LIPNF #### [facility] CLIA [id number] [address] PATHOLOGIST INTERPRETATION C BC AND DIFFERENTIAL (LAB REFLEX ORDER-NO BILL)on 12-31-2024 Supervisor Engine Assembly review Hernandez (Unsp spec) [Interp] Reviewed by Ayala White MD Normal [facility] Comment on above: Order Comment: Speci men Type: BLOOD SPECIMEN Ordering Facility: [facility] Address: [address] [place] [address] Performed By: #### L [id number], 31184-7 #### [facility] CLIA [id number] [address] STAFF REVIEW, CBCDIF Normal [facility] Comment on above: Order Comment: Speci men Type: BLOOD SPECIMEN Ordering Facility: [facility] Address: [address] [place] [address] Result Comment: Neut rophilic leukocytosis with slight left shift Absolute eosinophilia Absolute lymphocytosis. If the lymphocytosis is sustained or clinically unexplained, immunophenotyping by flow cytometry may be useful. Performed By: #### L [id number], 88803-0 #### [facility] CLIA [id number] [address] ECHOCARDIOGRAM COMPLETEon ECHOCARDIOGRAM COMPLETE Patient Info Name: GABBY SPENCE Age: 58 years : 1965 Gender: Female Ht: 170 cm Wt: 83 kg BSA: 2.00 m2 HR: 80 bpm BP: 154 / 85 mmHg Heart Rhythm: Sinus Rhythm Technical Quality: Fair Exam Date: 07/07/2023 2:55 PM Patient Status: Outpatient Back Facer: Jennifer Arciniega, JORGE, RVT Exam Type: ECHOCARDIOGRAM COMPLETE Study Info Indications R06.00 - Dyspnea, unspecified Referring Physician: GLO AMEZCUA ; [id number] BMI: 28.51 kg/m2 Summary 1. Normal left ventricular size and hyperdynamic systolic function, LVEF by biplane measurement 71%. 2. Impaired LV relaxation. 3. Normal right ventricular size and systolic function. 4. Mild left atrial enlargement. 5. No hemodynamically significant valvular disease. Estimated RVSP 28 mmHg. 6. No pericardial effusion. History/Risk Factors Hypertension: Yes Tobacco Use: Current - Every Day If Any Current, Tobacco Type: Cigarettes If Current - Every Day AND Cigarettes, Amount: Heavy Tobacco Use (>=10/day) Family History: Coronary Artery Disease History/Risk Factors edema, dyspnea. Procedure(s): Complete two-dimensional, color flow and Doppler transthoracic echocardiogram is performed. Left Ventricle Left ventricular chamber dimension is normal. Left ventricular systolic function is hyperdynamic with an ejection fraction by Biplane Method of Discs of 71 %. Normal left ventricular mass. Left ventricular segmental wall motion is normal. The left ventricular diastolic function is grade I diastolic dysfunction, consistent with low or normal atrial pressures. Right Ventricle Right ventricular chamber dimension is normal. Right ventricular systolic function is normal. Left Atria Left atrial chamber is mildly enlarged with a left atrial volume index of 34 ml/m2 by BP MOD. Right Atria Right atrial chamber dimension is normal. Aortic Valve The aortic valve is trileaflet. There is no aortic valve stenosis. There is no aortic valve regurgitation. Pulmonic Valve The pulmonic valve is not well visualized. There is no pulmonic valve stenosis. There is trace pulmonic regurgitation. Mitral Valve The mitral valve has normal leaflets and calcified annulus. There is no mitral valve stenosis. There is trace mitral valve regurgitation. Tricuspid Valve The tricuspid valve leaflets are normal. There is no significant tricuspid valve stenosis. There is trace tricuspid valve regurgitation. There is no pulmonary hypertension, estimated right ventricle systolic pressure is 28 mmHg. Pericardium/Pleural There is no pericardial effusion. Inferior Vena Cava Normal inferior vena cava with >50% collapse upon inspiration consistent with normal right atrial pressure. Aorta The aortic measurements are indexed to age and body surface area. The aortic root is normal measuring 3.0 cm with an index of 1.5 cm/m2. The proximal ascending aorta is normal measuring 3.2 cm with an index of 1.6 cm/m2. Left Ventricular Outflow Tract Name Value Normal LVOT 2D LVOT Diameter 2.0 cm LVOT Doppler LVOT Peak Velocity 1.9 m/s LVOT Mean Gradient 4 mmHg LVOT VTI 38 cm LVOT VTI/AV VTI Ratio 0.8 LVOT Stroke Volume 120 ml LVOT Stroke Index 59.94 ml/m2 Pulmonic Valve Name Value Normal RVOT Doppler RVOT Peak Velocity 82 cm/s RVOT Mean Gradient 1 mmHg RVOT VTI 18 cm PV Doppler PV Peak Velocity 1.68 m/s PV Mean Gradient 6 mmHg PV VTI 38 cm Mitral Valve Name Value Normal MV Doppler MV Peak Velocity 1.10 m/s MV Mean Gradient 2 mmHg MV VTI [address] [place] 457 cm/s2 MV PHT 59 ms MV Area (PHT) 3.7 cm2 4.0-5.0 MV Area (Cont Eq VTI) 4.0 cm2 MV Area Index (Cont Eq VTI) 2.00 cm2/m2 MV Diastolic Function MV E Peak Velocity 0.85 m/s MV A Peak Velocity 1.07 m/s MV E/A 0.8 MV Decel Time 204 ms MV Annular TDI MV Septal e' Velocity 7.7 cm/s >=8.0 MV Septal a' Velocity 14.4 cm/s MV E/e' (Septal) 11.0 <= (more content not included)... 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 No acute fractures Dictated by: GHULAM HALL on FriJun 19, 2023 4:19:56 PM EDT Transcribed by: GHULAM HALL on FriJun 19, 2023 4:19:56 PM EDT Finalized by: GHULAM HALL on FriJun 19, 2023 4:19:56 PM EDT Normal [facility] Ambulatory Comment on above: Order Comment: Injur y/Trauma or Illness?:Illness/Other How long have you had these symptoms (acute/chronic)?:Acute Reason for exam?:pain History of cancer?:n Surgeries, chemotherapy, or radiation?:n Type of Exam?:Initial Additional signs and symptoms?:swelling XR Clavicle - right 2 Viewso n 06-03-2023 IMPRESSION: Degenerative changes in the right supraclavicular joint. No acute fracture seen in the right clavicle. Clinical Nursing Coordinator: [employer] Transcribe Date/Time: Jun 03 2023 10:28A Dictated by : MITCHEL GARCIA MD This examination was interpreted and the report reviewed and electronically signed by: MITCHEL GARCIA MD on Jun 03 2023 10:30AM [facility] DIVISION OF RADIOLOGY * * *Final Report* * * DATE OF EXAM: May 29 2023 5:50PM WOX 5317 - XR CLAVICLE 2V RT / PROCEDURE REASON: Mass in neck * * * * Physician Interpretation * * * * EXAM TITLE: XR CLAVICLE 2V RT Clinical History: Mass in neck Technique: AP and axial views of the right clavicle are presented. Comparison: None. RESULT: No acute fractures demonstrated in the right clavicle. Mild acromioclavicular joint space narrowing is demonstrated, with associated osteophyte formation. No significant soft tissue swelling or calcification. DIVISION OF RADIOLOGY [facility] * * *Final Report* * * DATE OF EXAM: May 29 2023 5:50PM WOX 5317 - XR CLAVICLE 2V RT / PROCEDURE REASON: Mass in neck * * * * Physician Interpretation * * * * EXAM TITLE: XR CLAVICLE 2V RT Clinical History: Mass in neck Technique: AP and axial views of the right clavicle are presented. Comparison: None. RESULT: No acute fractures demonstrated in the right clavicle. Mild acromioclavicular joint space narrowing is demonstrated, with associated osteophyte formation. No significant soft tissue swelling or calcification. IMPRESSION IMPRESSION: Degenerative changes in the right supraclavicular joint. No acute fracture seen in the right clavicle. Clinical Nursing Coordinator: [facility] Transcribe Date/Time: Jun 03 2023 10:28A Dictated by : MITCHEL GARCIA MD This examination was interpreted and the report reviewed and electronically signed by: MITCHEL GARCIA MD on Jun 03 2023 10:30AM EST [facility] XR Clavicle - right 2 ViewsO rdered By: [facility] Provider on 06-03-2023 [facility] XR Clavicle - right 2 Viewso n 05-29-2023 Radiology Study observation (narrative) [facility] PELVIC US WHIon 02-11-2023 [facility] CASE MANAGEMon 01-18-2023 CASE MANAGEM HNO ID: [id number] Author: Bria Rios RN Service: ? Author Type: Registered Nurse Type: Care Mgt Progress Note Filed: 01/18/2023 1:38 PM Note Text: CARE MANAGEMENT DISCHARGE NOTE SERVICE DATE: 01/18/2023 SERVICE TIME: 1:38 PM LOS: 3 days Admission Date: 01/15/2023 DISCHARGE ARRANGEMENT (list agency and phone number) Discharge Arrangement: Home with Self Care CAREGIVER ASSESSMENT: Caregiver is ready, willing and able to meet the patient's needs as recommended by the inter-professional team:: No Caregiver needed Patient's transition needs and plan for meeting these needs: DC to home. HANDOFF COMMUNICATION: Handoff to: Primary Care Physician Primary Care Physician Name/Phone: Khadijah Curran MD, Summary of care sent to PCP. TRANSPORTATION ARRANGEMENTS: Transportation Arrangements: Car ADDITIONAL CONTACT RESOURCES: N/A Needs Prior to Discharge: None;Ready for Discharge DC order written for patient to return home. Spouse to transport. SIGNATURE: Bria Rios RN PATIENT NAME: Gabby Spence DATE: January 18, 2023 TIME: 1:38 PM PAGER/CONTACT #: [phone] [facility] CBC W Auto Differential pane l (Bld)on 01-18-2023 Basophils (Bld) [#/Vol] 0.06 10*3/uL Normal <0.11 [facility] Comment on above: Order Comment: Speci men Type: BLOOD SPECIMENOrdering Facility: [facility] Address: [address] [place] [address] Performed By: #### 5 7021-8 ####YE LABORATORYCLIA [id number] [place] [address] [place] Basophils/100 WBC (Bld) 0.8 % Normal [facility] Comment on above: Order Comment: Speci men Type: BLOOD SPECIMENOrdering Facility: [facility] Address: [address] [place] [address] Performed By: #### 5 7021-8 ####YE LABORATORYCLIA [id number] [place] [address] [place] Differential cell count method Nom (Bld) Auto Normal [facility] Comment on above: Order Comment: Speci men Type: BLOOD SPECIMENOrdering Facility: [facility] Address: [address] [place] [address] Performed By: #### 5 7021-8 ####YE LABORATORYCLIA [id number] [place] [address] [place] Eosinophils (Bld) [#/Vol] 0.41 10*3/uL Normal <0.46 [facility] Comment on above: Order Comment: Speci men Type: BLOOD SPECIMENOrdering Facility: [facility] Address: [address] [place] [address] Performed By: #### 5 7021-8 ####YE LABORATORYCLIA [id number] [address] STATES [facility] Eosinophils/100 WBC (Bld) 5.2 % Normal [facility] Comment on above: Order Comment: Speci men Type: BLOOD SPECIMENOrdering Facility: [facility] Address: [address] [place] [address] Performed By: #### 5 7021-8 ####YE LABORATORYCLIA [id number] [address] [place] [facility] Erythrocyte distribution width (RBC) [Ratio] 13.2 % Normal 11.5-15.0 [facility] Comment on above: Order Comment: Speci men Type: BLOOD SPECIMENOrdering Facility: [facility] Address: [address] [place] [address] Performed By: #### 5 7021-8 ####YE LABORATORYCLIA [id number] [address] [place] Hematocrit (Bld) [Volume fraction] 31.8 % Low 36.0-46.0 [facility] Comment on above: Order Comment: Speci men Type: BLOOD SPECIMENOrdering Facility: [facility] Address: [address] [place] [address] Performed By: #### 5 7021-8 ####YE LABORATORYCLIA [id number] [place] [address] [place] Hemoglobin (Bld) [Mass/Vol] 10.7 g/dL Low 11.5-15.5 [facility] Comment on above: Order Comment: Speci men Type: BLOOD SPECIMENOrdering Facility: [facility] Address: [address] [place] [address] Performed By: #### 5 7021-8 ####YE LABORATORYCLIA [id number] [address] [place] Immature granulocytes (Bld) [#/Vol] 10*3/uL Normal <0.10 [facility] Comment on above: Order Comment: Speci men Type: BLOOD SPECIMENOrdering Facility: [facility] Address: [address] [place] [address] Performed By: #### 5 7021-8 ####YE LABORATORYCLIA [id number] [address] Immature granulocytes/100 WBC (Bld) 0.3 % Normal [facility] Comment on above: Order Comment: Speci men Type: BLOOD SPECIMENOrdering Facility: [facility] Address: [address] [place] [address] Performed By: #### 5 7021-8 ####YE LABORATORYCLIA [id number] [address] [place] Lymphocytes (Bld) [#/Vol] 2.91 10*3/uL Normal 1.00-4.00 [facility] Comment on above: Order Comment: Speci men Type: BLOOD SPECIMENOrdering Facility: [facility] Address: [address] [place] [address] Performed By: #### 5 7021-8 ####YE LABORATORYCLIA [id number] [address] Lymphocytes/100 WBC (Bld) 37.2 % Normal [facility] Comment on above: Order Comment: Speci men Type: BLOOD SPECIMENOrdering Facility: [facility] Address: [address] [place] [address] Performed By: #### 5 7021-8 ####YE LABORATORYCLIA [id number] [address] [place] [facility] MCH (RBC) [Entitic mass] 30.2 pg Normal 26.0-34.0 [facility] Comment on above: Order Comment: Speci men Type: BLOOD SPECIMENOrdering Facility: [facility] Address: [address] [place] [address] Performed By: #### 5 7021-8 ####YE LABORATORYCLIA [id number] [address] MCHC (RBC) [Mass/Vol] 33.6 g/dL Normal 30.5-36.0 [facility] Comment on above: Order Comment: Speci men Type: BLOOD SPECIMENOrdering Facility: [facility] Address: [address] [place] [address] Performed By: #### 5 7021-8 ####YE LABORATORYCLIA [id number] [place] [address] [place] MCV (RBC) [Entitic vol] 89.8 fL Normal 80.0-100.0 [facility] Comment on above: Order Comment: Speci men Type: BLOOD SPECIMENOrdering Facility: [facility] Address: [address] [place] [address] Performed By: #### 5 7021-8 ####YE LABORATORYCLIA [id number] [address] [place] Monocytes (Bld) [#/Vol] 0.51 10*3/uL Normal <0.87 [facility] Comment on above: Order Comment: Speci men Type: BLOOD SPECIMENOrdering Facility: [facility] Address: [address] [place] [address] Performed By: #### 5 7021-8 ####YE LABORATORYCLIA [id number] [address] Monocytes/100 WBC (Bld) 6.5 % Normal [facility] Comment on above: Order Comment: Speci men Type: BLOOD SPECIMENOrdering Facility: [facility] Address: [address] [place] [address] Performed By: #### 5 7021-8 ####YE LABORATORYCLIA [id number] [place] [address] [place] Neutrophils (Bld) [#/Vol] 3.92 10*3/uL Normal 1.45-7.50 [facility] Comment on above: Order Comment: Speci men Type: BLOOD SPECIMENOrdering Facility: [facility] Address: [address] [place] [address] Performed By: #### 5 7021-8 ####YE LABORATORYCLIA [id number] [place] [address] [place] Neutrophils/100 WBC (Bld) 50.0 % Normal [facility] Comment on above: Order Comment: Speci men Type: BLOOD SPECIMENOrdering Facility: [facility] Address: [address] [place] [address] Performed By: #### 5 7021-8 ####YE LABORATORYCLIA [id number] [place] [address] [place] Nucleated RBC (Bld) [#/Vol] 10*3/uL Normal <0.01 [facility] Comment on above: Order Comment: Speci men Type: BLOOD SPECIMENOrdering Facility: [facility] Address: [address] [place] [address] Performed By: #### 5 7021-8 ####YE LABORATORYCLIA [id number] [address] [place] Nucleated RBC/100 WBC (Bld) [Ratio] 0.0 /100 WBC Normal [facility] Comment on above: Order Comment: Speci men Type: BLOOD SPECIMENOrdering Facility: [facility] Address: [address] [place] [address] Performed By: #### 5 7021-8 ####YE LABORATORYCLIA [id number] [place] [address] [place] Platelet mean volume (Bld) [Entitic vol] 8.5 fL Low 9.0-12.7 [facility] Comment on above: Order Comment: Speci men Type: BLOOD SPECIMENOrdering Facility: [facility] Address: [address] [address] Performed By: #### 5 7021-8 ####YE LABORATORYCLIA [id number] [place] [address] [place] Platelets (Bld) [#/Vol] 363 10*3/uL Normal 150-400 [facility] Comment on above: Order Comment: Speci men Type: BLOOD SPECIMENOrdering Facility: [facility] Address: [address] [address] Performed By: #### 5 7021-8 ####YE LABORATORYCLIA [id number] [place] [address] [place] RBC (Bld) [#/Vol] 3.54 10*6/uL Low 3.90-5.20 [facility] Comment on above: Order Comment: Speci men Type: BLOOD SPECIMENOrdering Facility: [facility] Address: [place] [address] Performed By: #### 5 7021-8 ####YE LABORATORYCLIA [id number] [place] [id number] [facility] WBC (Bld) [#/Vol] 7.83 10*3/uL Normal 3.70-11.00 [facility] Comment on above: Order Comment: Speci men Type: BLOOD SPECIMENOrdering Facility: [facility] Address: [place] [address] Performed By: #### 5 7021-8 ####YE LABORATORYCLIA [id number] [place] [id number] [facility] CNDSon 01-18-2023 CNDS HNO ID: [id number] Author: Josh Blankenship Jr., MD Service: Hospital Medicine Author Type: Physician Type: Discharge Summary Filed: 01/18/2023 1:13 PM Note Text: DISCHARGE SUMMARY PATIENT NAME: Gabby Spence Code Status: Not on file Highest Readmission Risk Score: 15 The 30 day readmissions risk score is derived from an internally validated risk model which evaluates patient level characteristics, utilization history, medication orders and lab results up until the day of discharge. Patients with a score of 40 or above are considered highest risk for readmission. Specific patient level drivers will be listed at the bottom of the summary. Admission Information Admission Information ADMIT DATE: 01/15/2023 DISCHARGE DATE: 01/18/2023 MY DOCTORS AND MEDICAL TEAM: My Main Hospital Doctor: Josh Blankenship Jr. Primary Care Provider: Khadijah Curran MD My Medical Team Members: Treatment Team: Attending Provider: Josh Blankenship Jr., MD Consulting: Mary Villarreal MD MY CONDITION AT DISCHARGE: Stable REASON I WAS IN THE HOSPITAL: Colitis with severe dehydration SUMMARY OF WHAT HAPPENED WHILE I WAS IN THE HOSPITAL: You were admitted to the hospital on 01/15/23 with frequent diarrhea and low blood pressure. A CAT scan of your Abdomen and Pelvis showed evidence for colitis (inflammation of your colon) and blood tests showed an acute kidney injury due to severe dehydration. Your blood pressure was very low but improved with IV fluids. You were admitted to the Intensive Care Unit and started on IV antibiotics for colitis. Gastroenterology was consulted. Your kidney function returned to normal and your diarrhea and abdominal pain improved. You were transferred out of the ICU and you were advanced to a regular diet. By 01/18, you had continued improvement in your diarrhea and abdominal pain and felt ready for discharge. You were discharged to home on 01/18/23. Cefdinir (antibiotic) 300 mg twice a day for 7 days, starting tomorrow, and Metronidazole (antibiotic) 500 mg three times a day for 7+ days, starting tonight, were ordered to complete treatment for a possible infectious colitis. You were restarted on Lialda (mesalamine) 2.4 grams daily for ulcerative colitis. [place] 5/325 every 6 hours as needed for back pian (#12) was ordered. The Amlodipine and Lisinopril remained on hold since your blood pressure was normal, but they will likely need to be restarted in the future. You should follow-up with GI and your PCP in 1-2 weeks. Note: The CAT scan of your Abdomen and Pelvis also showed a partially calcified left adnexal lesion (near your ovary) and possible left hydrosalpinx (a fluid blockage in the fallopian tube) An outpatient Pelvis Ultrasound was recommended. OTHER PROBLEMS/DIAGNOSIS: Principal Problem: Severe sepsis (HCC) Active Problems: Colitis Ulcerative colitis (HCC) Essential hypertension Chronic low back pain Anxiety and depression Smoker Resolved Problems: BRIJESH (acute kidney injury) (HCC) Dehydration OPERATIONS PERFORMED WHILE IN THE HOSPITAL: None IMPORTANT TEST/PROCEDURES: No procedures performed TEST RESULTS NOT AVAILABLE AT THIS TIME: No pending results Discharge Disposition Discharge Disposition: Home With Self Care Activity When You Leave the Hospital Resume pre-hospital activity Diet Instructions Other: GI Fiber-controlled diet Follow Up Appointments Follow-Up Appointment 1-2 weeks (appointment requested) When: In: Khadijah Curran MD [phone] [address] [facility] [address] PCP Requested Referral Follow-Up Appointment 1-2 weeks. The Gastroenterology office will call to schedule an appointment When: In: Mary Villarreal MD [phone] [facility] [address] [facility] [address] PCP Requested Referral Additional Provider to Provider Information: This is a 57 year old female, with a PMH of Ulcerative Colitis, Chronic Diastolic CHF, HTN, Anxiety/Depression and smoking, who presented to the ED on 01/15/23 with persistent diarrhea and hypotension. She had been admitted to [facility] 01/09 - 01/11/23 for frequent diarrhea. Those records are not available but the patient stated she was given IVFs and no antibiotics. She reported a long-standing history of Ulcerative Colitis with routine colonoscopies. She had been on Budesonide and Asacol in the past. She stated that after her last colonoscopy in 07/2022, her restaurant greeter advised her to stop taking her UC medications. She was seen for a follow-up visit at her PCP's office on 01/15. She reported continued diarrhea, 6-8 episodes per day. She denied any blood or mucus in her stool. No fevers or chills. Her BP dropped to 70/50 and she was sent to the ED for evaluation (patient refused EMS). In the ED, she was afebrile and SBP was 70. Na 135, K 4.2, Cr 3.5, LFTs nl. Lactate 1.0 - 0.4, W (more content not included)... Normal [facility] CONSULT PROGon 01-18-2023 CONSULT PROG HNO ID: [id number] Author: Mary Villarreal MD Service: Gastroenterology Author Type: Physician Type: Consult Progress Note Filed: 01/18/2023 12:26 PM Note Text: GASTROENTEROLOGY INPATIENT PROGRESS NOTE Patient Name: Gabby Spence SERVICE DATE: January 18, 2023 SERVICE TIME: 12:[address]- thickening and edema from transverse colon to rectum- suspect UC flare but must also consider infectious Diffuse abdominal pain Severe sepsis BRIJESH Hx UC on no current maintenance medications Nicotine abuse Family hx CRC (father) Microcytic anemia PLAN - ok to discharge home today with mesalamine 800 mg three times daily and 7 day course of omnicef and flagyl - Protonix 40 mg po daily - GI soft diet - outpatient colonoscopy - close outpatient f/up in [facility] office in 1-2 weeks INTERVAL HPI: Doing well. Sitting up in chair. Denies abdominal pain. No nausea or vomiting. Has small loose BM this morning. Received colonoscopy report but not EGD report and pathology report of both. MEDICATIONS: Current Facility-Administered Medications Medication Dose Route Frequency NaCl 0.9% iv flush bag 20 mL INTRAVENOUS PRN pantoprazole DR 40 mg tab(s) (PROTONIX) 40 mg ORAL DAILY (6 AM) DULoxetine 60 mg cap(s) (CYMBALTA) 60 mg ORAL DAILY heparin 5,000 Units injection 5,000 Units SUBCUTANEOUS q 12 H lidocaine 4 % 1 Patch (SALONPAS) 1 Patch TRANSDERMAL DAILY AT 9 PM And lidocaine patch - REMOVE OTHER DAILY And lidocaine - VERIFY PATCH OTHER q 8 H gabapentin 600 mg tab(s) (NEURONTIN) 600 mg ORAL TID HYDROcodone 5 mg - acetaminophen 325 mg tablet (NORCO) 1 tablet ORAL q 6 H PRN metroNIDAZOLE iv piggyback 500 mg in NaCl (iso-osmotic) 100 mL (FLAGYL) 500 mg INTRAVENOUS q 8 H cefTRIAXone iv piggyback 1 g in dextrose (iso-osmotic) 50 mL (ROCEPHIN) 1 g INTRAVENOUS q 24 H PHYSICAL EXAM: Patient Vitals for the past 24 hrs: BP Temp Temp src Pulse Resp SpO2 01/18/23 0744 135/84 36.9 ?C (98.4 ?F) Oral 67 20 100 % 01/18/23 0002 115/62 36.6 ?C (97.9 ?F) Oral 69 16 99 % 01/17/23 1705 140/76 36.6 ?C (97.9 ?F) Oral 81 17 97 % Body mass index is 29.83 kg/m?. GENERAL: Alert, no distress, cooperative LUNGS: Lungs clear to auscultation. CARDIAC: RRR ABDOMEN: Abdomen soft, non-tender. BS normal. EXTREMITIES: Extremities without edema DATA: CBC, Coags, BMP, Mg, Phos Recent Labs 01/18/23 0540 01/17/23 0508 01/16/23 0446 01/15/23 2340 01/15/23 1909 WBC 7.83 8.61 15.74* 19.81* 20.42* HB 10.7* 10.7* 10.8* 10.9* 13.0 HCT 31.8* 31.2* 32.8* 32.4* 38.3 PLT 363 361 297 302 395 INR -- -- -- -- 1.0 APTT -- -- -- -- 30.6 NA 142 141 136 136 135* K 4.4 4.2 3.9 4.1 4.2 CHLOR 109* 111* 106* 104 99 CO2 21* 20* 15* 16* 16* BUN 11 15 32* 35* 38* CREAT 0.74 0.71 1.66* 2.38* 3.48* GLUC 93 87 103* 143* 125* CA 10.0 9.5 8.8 8.6 9.7 MG -- -- 2.0 1.8 -- P -- -- 4.6 4.6 -- Liver Function, Amylase, AND Lipase Recent Labs 01/18/23 0540 01/17/23 0508 01/16/23 0446 01/15/23 2340 01/15/23 1909 TPROT 6.5 6.6 6.3 < > 7.9 ALB 3.8* 3.6* 3.5* < > 4.4 ALT 9 8 7 < > 8 AST 14 13 11* < > 16 ALKPHOS 81 80 78 < > 96 TBILI <0.2* <0.2* <0.2* < > <0.2* LIPASE -- -- -- -- 31 < > = values in this interval not displayed. MISC LABS 01/15/2023 COVID (-) 01/15/2023 BC x 2- no growth 1 day Component Latest Ref Rng AND Units 01/15/2023 WSR 0 - 20 mm/hr 57 (H) 01/16/23 Stool studies: C.diff (-), Cx (-), OANDP (-), OB (+), FL (pending) RADIOLOGY 01/15/2023 CTA Vasculature: No thoracic aortic hematoma, aneurysm, dissection or penetrating ulcer. No central pulmonary emboli. Great vessels are unremarkable. Abdominal aorta is normal in caliber. No dissection. Patent celiac axis, SMA, MAGALIE and renal arteries. Calcification at the origin of the left renal artery. Pelvic arteries are patent. Chest: Lines, Tubes, and Devices: N/A Lungs and Pleura: Central airways are patent. No suspicious pulmonary nodules. No consolidations. No pleural effusions. No pneumothorax. Cardiomediastinal structures: Atherosclerotic calcifications in the thoracic aorta and coronary artery calcifications. Pulmonary arteries normal in caliber. No pericardial effusion. Neck base: Subcentimeter right thyroid nodule.. Thoracic lymph nodes: No lymphadenopathy. Bones and Soft tissues: No acute fracture or destructive osseous lesion. Abdomen and pelvis: Liver: 13 mm right hepatic lobe cyst Normal morphology. Biliary: No bile duct dilation. Gallbladder is unremarkable. Spleen: No mass. No splenomegaly. Pancreas: No mass or duct dilation. Adrenals: Left adrenal hyperplasia. No discrete nodule. Kidneys: No mass, calculus or hydronephrosis. Bladder is decompressed GI tract: Wall thickening of the colon from the mid transverse colon to the rectum. Somewhat featureless descending colon with submucosal fat suggesting a chronic component. No bowel obstruction. Lymph nodes: No abdom (more content not included)... Normal [facility] Comprehensive metabolic 2000 panelon 01-18-2023 Albumin [Mass/Vol] 3.8 g/dL Low 3.9-4.9 [facility] Comment on above: Order Comment: Speci men Type: BLOOD SPECIMEN Ordering Facility: [facility] Address: [address] [address] Performed By: #### 5 5454-3 #### [facility] CLIA [id number] [address] [place] [address] [place] ALP [Catalytic activity/Vol] 81 U/L Normal 34-123 [facility] Comment on above: Order Comment: Speci men Type: BLOOD SPECIMEN Ordering Facility: [facility] Address: [address] [address] Performed By: #### 5 5454-3 #### [facility] CLIA [id number] [address] [place] [address] [place] ALT [Catalytic activity/Vol] 9 U/L Normal 7-38 [facility] Comment on above: Order Comment: Speci men Type: BLOOD SPECIMEN Ordering Facility: [facility] Address: [address] [address] Performed By: #### 5 5454-3 #### [facility] CLIA [id number] [address] [place] [address] [place] Anion gap [Moles/Vol] 12 mmol/L Normal 9-18 [facility] Comment on above: Order Comment: Speci men Type: BLOOD SPECIMEN Ordering Facility: [facility] Address: [place] [address] Performed By: #### 5 5454-3 #### [facility] CLIA [id number] [address] [place] [address] [place] AST [Catalytic activity/Vol] 14 U/L Normal 13-35 [facility] Comment on above: Order Comment: Speci men Type: BLOOD SPECIMEN Ordering Facility: [facility] Address: [address] [place], [place] [address] Performed By: #### 5 5454-3 #### [facility] CLIA [id number] [address] [place] Bilirubin [Mass/Vol] mg/dL Low 0.2-1.3 [facility] Comment on above: Order Comment: Speci men Type: BLOOD SPECIMEN Ordering Facility: [facility] Address: [place] [address] Performed By: #### 5 5454-3 #### [facility] CLIA [id number] [address] [place] Calcium [Mass/Vol] 10.0 mg/dL Normal 8.5-10.2 [facility] Comment on above: Order Comment: Speci men Type: BLOOD SPECIMEN Ordering Facility: [facility] Address: [address] Performed By: #### 5 5454-3 #### [facility] CLIA [id number] [address] [place] [address] [place] Chloride [Moles/Vol] 109 mmol/L High 97-105 [facility] Comment on above: Order Comment: Speci men Type: BLOOD SPECIMEN Ordering Facility: [facility] Address: [address] Performed By: #### 5 5454-3 #### [facility] CLIA [id number] [address] [place] [address] [place] CO2 [Moles/Vol] 21 mmol/L Low 22-30 [facility] Comment on above: Order Comment: Speci men Type: BLOOD SPECIMEN Ordering Facility: [facility] Address: [address] [place] [address] Performed By: #### 5 5454-3 #### [facility] CLIA [id number] [address] [place] [address] [place] Creatinine [Mass/Vol] 0.74 mg/dL Normal 0.58-0.96 [facility] Comment on above: Order Comment: Speci men Type: BLOOD SPECIMEN Ordering Facility: [facility] Address: [address] [place] [address] Performed By: #### 5 5454-3 #### [facility] CLIA [id number] [address] [place] ESTIMATED GLOMERULAR FILTRATION RATE 95 mL/min/1.73m??? Normal >=60 [facility] Comment on above: Order Comment: Cherriei men Type: BLOOD SPECIMEN Ordering Facility: [facility] Address: [address] [place] [address] Result Comment: Christie mated Glomerular Filtration Rate (eGFR) is calculated using the 2020 CKD-EPI creatinine equation. This equation utilizes serum creatinine, sex, and age as parameters. The creatinine assay has traceable calibration to isotope dilution-mass spectrometry. Refer to KDIGO guidelines for clinical interpretation. In patients with unstable renal function, e.g. those with acute kidney injury, the eGFR may not accurately reflect actual GFR. Performed By: #### 5 5454-3 #### [facility] CLIA [id number] [address] [place] [address] [place] Glucose [Mass/Vol] 93 mg/dL Normal 74-99 [facility] Comment on above: Order Comment: Speci men Type: BLOOD SPECIMEN Ordering Facility: [facility] Address: [address] [id number] Result Comment: The [place] [employer] (ADA) provides guidance for cutoff values for fasting glucose and random glucose. The ADA defines fasting as no caloric intake for at least 8 hours. Fasting plasma glucose results between 100 to 125 mg/dL indicate increased risk for diabetes (prediabetes). Fasting plasma glucose results greater than or equal to 126 mg/dL meet the criteria for diagnosis of diabetes. In the absence of unequivocal hyperglycemia, results should be confirmed by repeat testing. In a patient with classic symptoms of hyperglycemia or hyperglycemic crisis, random plasma glucose results greater than or equal to 200 mg/dL meet the criteria for diagnosis of diabetes. Reference: Standards of Medical Care in Diabetes 2016, [place] [employer]. Diabetes Care. 2016.39(Suppl 1). Performed By: #### 5 5454-3 #### [facility] CLIA [id number] [address] [place] [address] [place] Potassium [Moles/Vol] 4.4 mmol/L Normal 3.7-5.1 [facility] Comment on above: Order Comment: Speci men Type: BLOOD SPECIMEN Ordering Facility: [facility] Address: [address] [place], [place] [address] Performed By: #### 5 5454-3 #### [facility] CLIA [id number] [address] [place] [address] [place] Protein [Mass/Vol] 6.5 g/dL Normal 6.3-8.0 [facility] Comment on above: Order Comment: Speci men Type: BLOOD SPECIMEN Ordering Facility: [facility] Address: [address] [id number] Performed By: #### 5 5454-3 #### [facility] CLIA [id number] [facility] [place] [address] [place] Sodium [Moles/Vol] 142 mmol/L Normal 136-144 [facility] Comment on above: Order Comment: Speci men Type: BLOOD SPECIMEN Ordering Facility: [facility] Address: [address] Performed By: #### 5 5454-3 #### [facility] CLIA [id number] [address] [place] [address] [place] Urea nitrogen [Mass/Vol] 11 mg/dL Normal 7-21 [facility] Comment on above: Order Comment: Speci men Type: BLOOD SPECIMEN Ordering Facility: [facility] Address: [address] [place], [place] [address] Performed By: #### 5 5454-3 #### [facility] CLIA [id number] [address] [place] [address] [place] CBC W Auto Differential pane l (Bld)on 01-17-2023 Basophils (Bld) [#/Vol] 0.07 10*3/uL Normal <0.11 [facility] Comment on above: Order Comment: Speci men Type: BLOOD SPECIMEN Ordering Facility: [facility] Address: [address] [place] [address] Performed By: #### 5 7021-8 #### [facility] CLIA [id number] [address] STATES [facility] Basophils/100 WBC (Bld) 0.8 % Normal [facility] Comment on above: Order Comment: Speci men Type: BLOOD SPECIMEN Ordering Facility: [facility] Address: [address] [place] [address] Performed By: #### 5 7021-8 #### [facility] CLIA [id number] [address] Differential cell count method Nom (Bld) Auto Normal [facility] Comment on above: Order Comment: Speci men Type: BLOOD SPECIMEN Ordering Facility: [facility] Address: [address] [place] [address] Performed By: #### 5 7021-8 #### [facility] CLIA [id number] [address] [place] [address] [place] Eosinophils (Bld) [#/Vol] 0.36 10*3/uL Normal <0.46 [facility] Comment on above: Order Comment: Speci men Type: BLOOD SPECIMEN Ordering Facility: [facility] Address: [address] [address] Performed By: #### 5 7021-8 #### [facility] CLIA [id number] [address] [place] Eosinophils/100 WBC (Bld) 4.2 % Normal [facility] Comment on above: Order Comment: Speci men Type: BLOOD SPECIMEN Ordering Facility: [facility] Address: [address] [address] Performed By: #### 5 7021-8 #### [facility] CLIA [id number] [address] Erythrocyte distribution width (RBC) [Ratio] 13.4 % Normal 11.5-15.0 [facility] Comment on above: Order Comment: Speci men Type: BLOOD SPECIMEN Ordering Facility: [facility] Address: [address] [place] [address] Performed By: #### 5 7021-8 #### [facility] CLIA [id number] [address] OF [facility] Hematocrit (Bld) [Volume fraction] 31.2 % Low 36.0-46.0 [facility] Comment on above: Order Comment: Speci men Type: BLOOD SPECIMEN Ordering Facility: [facility] Address: [address] [place] [address] Performed By: #### 5 7021-8 #### [facility] CLIA [id number] [address] [place] Hemoglobin (Bld) [Mass/Vol] 10.7 g/dL Low 11.5-15.5 [facility] Comment on above: Order Comment: Speci men Type: BLOOD SPECIMEN Ordering Facility: [facility] Address: [address] [place] [address] Performed By: #### 5 7021-8 #### [facility] CLIA [id number] [address] [place] Immature granulocytes (Bld) [#/Vol] 10*3/uL Normal <0.10 [facility] Comment on above: Order Comment: Speci men Type: BLOOD SPECIMEN Ordering Facility: [facility] Address: [address] [address] Performed By: #### 5 7021-8 #### [facility] CLIA [id number] [address] Immature granulocytes/100 WBC (Bld) 0.2 % Normal [facility] Comment on above: Order Comment: Speci men Type: BLOOD SPECIMEN Ordering Facility: [facility] Address: [address] [place] [address] Performed By: #### 5 7021-8 #### [facility] CLIA [id number] [address] [place] Lymphocytes (Bld) [#/Vol] 2.93 10*3/uL Normal 1.00-4.00 [facility] Comment on above: Order Comment: Speci men Type: BLOOD SPECIMEN Ordering Facility: [facility] Address: [address] [place] [address] Performed By: #### 5 7021-8 #### [facility] CLIA [id number] [address] Lymphocytes/100 WBC (Bld) 34.0 % Normal [facility] Comment on above: Order Comment: Speci men Type: BLOOD SPECIMEN Ordering Facility: [facility] Address: [address] [place] [address] Performed By: #### 5 7021-8 #### [facility] CLIA [id number] [address] STATES [facility] MCH (RBC) [Entitic mass] 31.0 pg Normal 26.0-34.0 [facility] Comment on above: Order Comment: Speci men Type: BLOOD SPECIMEN Ordering Facility: [facility] Address: [address] [place] [address] Performed By: #### 5 7021-8 #### [facility] CLIA [id number] [address] MCHC (RBC) [Mass/Vol] 34.3 g/dL Normal 30.5-36.0 [facility] Comment on above: Order Comment: Speci men Type: BLOOD SPECIMEN Ordering Facility: [facility] Address: [address] [place] [address] Performed By: #### 5 7021-8 #### [facility] CLIA [id number] [address] [place] [address] [place] MCV (RBC) [Entitic vol] 90.4 fL Normal 80.0-100.0 [facility] Comment on above: Order Comment: Speci men Type: BLOOD SPECIMEN Ordering Facility: [facility] Address: [address] [place] [address] Performed By: #### 5 7021-8 #### [facility] CLIA [id number] [address] [place] Monocytes (Bld) [#/Vol] 0.55 10*3/uL Normal <0.87 [facility] Comment on above: Order Comment: Speci men Type: BLOOD SPECIMEN Ordering Facility: [facility] Address: [address] [place] [address] Performed By: #### 5 7021-8 #### [facility] CLIA [id number] [address] [place] Monocytes/100 WBC (Bld) 6.4 % Normal [facility] Comment on above: Order Comment: Speci men Type: BLOOD SPECIMEN Ordering Facility: [facility] Address: [address] [place] [address] Performed By: #### 5 7021-8 #### [facility] CLIA [id number] [address] [place] [address] [place] Neutrophils (Bld) [#/Vol] 4.68 10*3/uL Normal 1.45-7.50 [facility] Comment on above: Order Comment: Speci men Type: BLOOD SPECIMEN Ordering Facility: [facility] Address: [address] [place] [address] Performed By: #### 5 7021-8 #### [facility] CLIA [id number] [address] [place] [address] [place] Neutrophils/100 WBC (Bld) 54.4 % Normal [facility] Comment on above: Order Comment: Speci men Type: BLOOD SPECIMEN Ordering Facility: [facility] Address: [address] [address] Performed By: #### 5 7021-8 #### [facility] CLIA [id number] [address] [place] [address] [place] Nucleated RBC (Bld) [#/Vol] 10*3/uL Normal <0.01 [facility] Comment on above: Order Comment: Speci men Type: BLOOD SPECIMEN Ordering Facility: [facility] Address: [address] [address] Performed By: #### 5 7021-8 #### [facility] CLIA [id number] [address] [place] Nucleated RBC/100 WBC (Bld) [Ratio] 0.0 /100 WBC Normal [facility] Comment on above: Order Comment: Speci men Type: BLOOD SPECIMEN Ordering Facility: [facility] Address: [address] [address] Performed By: #### 5 7021-8 #### [facility] CLIA [id number] [address] [place] [address] [place] Platelet mean volume (Bld) [Entitic vol] 8.7 fL Low 9.0-12.7 [facility] Comment on above: Order Comment: Speci men Type: BLOOD SPECIMEN Ordering Facility: [facility] Address: [address] [address] Performed By: #### 5 7021-8 #### [facility] CLIA [id number] [address] [place] [address] [place] Platelets (Bld) [#/Vol] 361 10*3/uL Normal 150-400 [facility] Comment on above: Order Comment: Speci men Type: BLOOD SPECIMEN Ordering Facility: [facility] Address: [address] [address] Performed By: #### 5 7021-8 #### [facility] CLIA [id number] [address] [place] RBC (Bld) [#/Vol] 3.45 10*6/uL Low 3.90-5.20 [facility] Comment on above: Order Comment: Speci men Type: BLOOD SPECIMEN Ordering Facility: [facility] Address: [address] [address] Performed By: #### 5 7021-8 #### [facility] CLIA [id number] [address] WBC (Bld) [#/Vol] 8.61 10*3/uL Normal 3.70-11.00 [facility] Comment on above: Order Comment: Speci men Type: BLOOD SPECIMEN Ordering Facility: [facility] Address: [address] [address] Performed By: #### 5 7021-8 #### [facility] CLIA [id number] [address] CONSULT PROGon 01-17-2023 CONSULT PROG HNO ID: [id number] Author: Mary Villarreal MD Service: Gastroenterology Author Type: Physician Type: Consult Progress Note Filed: 01/17/2023 2:17 PM Note Text: GASTROENTEROLOGY CONSULT PROGRESS NOTE Patient Name: Gabby Spence SERVICE DATE: January 17, 2023 SERVICE TIME: 12:[address]- thickening and edema from transverse colon to rectum- suspect UC flare but must also consider infectious Diffuse abdominal pain Severe sepsis BRIJESH Hx UC on no current maintenance medications Nicotine abuse Family hx CRC (father) Microcytic anemia PLAN - Stool log - F/U stool for fecal leukocytes - Iron studies, folate, vitamin B12 - Protonix 40 mg po daily - Rocephin/Flagyl as per IM - Obtain recent EGD and colonoscopy reports (requested but not yet received) - Will need resumption of UC maintenance medications (previously on Budesonide 9 mg po daily and Asacol 400 mg po TID). Therapeutic substitution as inaptient is colazol which she cannot have due to allergy to sulfasalazine. Spoke with pharmacy and Asacol or other mesalamine products are not available and patient does not have home supply as has not taken in months. - Advance to GI soft diet - Daily CBC, CMP Patient seen and examined. Discussed with mid level provider. Sanchez findings confirmed. Plan as outlined. Reports feeling much better. 2 sisters at bedside. Denies abd pain. No nausea or vomiting. Frequency of diarrhea has improved. Tolerating diet. Labs significantly improved. EGD and colonoscopy reports still not received. Will plan to start asacol 800 mg three times daily upon discharge. Discussed need for stepping up therapy based on clinical course. Mary Villarreal MD January 17, 2023 2:16 PM INTERVAL HPI: Feels much better today. No abdominal pain, nausea or vomiting. Tolerating liquids and hungry. Had three liquid brown stools thus far today. Stool studies negative for enteric pathogen. PHYSICAL EXAM: Patient Vitals for the past 24 hrs: BP Temp Temp src Pulse Resp SpO2 Weight 01/17/23 0802 117/59 -- -- 72 -- -- -- 01/17/23 0752 119/68 36.6 ?C (97.9 ?F) Oral 73 20 99 % -- 01/17/23 0500 -- -- -- -- -- -- 86.4 kg (190 lb 7.6 oz) 01/16/23 2342 121/64 36.7 ?C (98.1 ?F) Oral 68 14 95 % -- 01/16/23 2125 132/82 -- -- -- -- -- -- 01/16/23 1700 124/83 36.2 ?C (97.2 ?F) Temporal 90 23 96 % -- 01/16/23 1600 119/68 -- -- 75 14 94 % -- 01/16/23 1500 120/80 -- -- 77 26 96 % -- 01/16/23 1400 130/72 -- -- 78 20 96 % -- 01/16/23 1300 138/77 -- -- 85 22 98 % -- GENERAL: Alert AND oriented x 3. Cooperative. NAD EYES: No scleral icterus SKIN: Svensen in color. No jaundice LUNGS: Clear to auscultation anteriorly CARDIAC: RRR ABDOMEN: BS x 4. Abdomen soft and non distended. Diffuse TTP. No palpable masses or organomegaly. No guarding or rebound tenderness elicited EXTREMITIES: No upper or lower extremity edema MEDICATIONS: Current Facility-Administered Medications Medication Dose Route Frequency NaCl 0.9% iv flush bag 20 mL INTRAVENOUS PRN pantoprazole DR 40 mg tab(s) (PROTONIX) 40 mg ORAL DAILY (6 AM) DULoxetine 60 mg cap(s) (CYMBALTA) 60 mg ORAL DAILY heparin 5,000 Units injection 5,000 Units SUBCUTANEOUS q 12 H lidocaine 4 % 1 Patch (SALONPAS) 1 Patch TRANSDERMAL DAILY AT 9 PM And lidocaine patch - REMOVE OTHER DAILY And lidocaine - VERIFY PATCH OTHER q 8 H gabapentin 600 mg tab(s) (NEURONTIN) 600 mg ORAL TID HYDROcodone 5 mg - acetaminophen 325 mg tablet (NORCO) 1 tablet ORAL q 6 H PRN metroNIDAZOLE iv piggyback 500 mg in NaCl (iso-osmotic) 100 mL (FLAGYL) 500 mg INTRAVENOUS q 8 H cefTRIAXone iv piggyback 1 g in dextrose (iso-osmotic) 50 mL (ROCEPHIN) 1 g INTRAVENOUS q 24 H LABS: CBC, Coags, BMP, Mg, Phos Recent Labs 01/17/23 0508 01/16/236 01/15/23233901/15/23 1909 WBC 8.61 15.74* 19.81* 20.42* HB 10.7* 10.8* 10.9* 13.0 HCT 31.2* 32.8* 32.4* 38.3 PLT 361 297 302 395 INR -- -- -- 1.0 APTT -- -- -- 30.6 NA 141 136 136 135* K 4.2 3.9 4.1 4.2 CHLOR 111* 106* 104 99 CO2 20* 15* 16* 16* BUN 15 32* 35* 38* CREAT 0.71 1.66* 2.38* 3.48* GLUC 87 103* 143* 125* CA 9.5 8.8 8.6 9.7 MG -- 2.0 1.8 -- P -- 4.6 4.6 -- Liver Function, Amylase, AND Lipase Recent Labs 01/17/23 0508 01/16/23 0446 01/15/23 2340 01/15/23 1909 TPROT 6.6 6.3 6.5 7.9 ALB 3.6* 3.5* 3.7* 4.4 ALT 8 7 8 8 AST 13 11* 11* 16 ALKPHOS 80 78 82 96 TBILI <0.2* <0.2* <0.2* <0.2* LIPASE -- -- -- 31 MISC LABS 01/15/2023 COVID (-) 01/15/2023 BC x 2- no growth 1 day Component Latest Ref Rng AND Units 01/15/2023 WSR 0 - 20 mm/hr 57 (H) 01/16/23 Stool studies: C.diff (-), Cx (-), OANDP (-), OB (+), FL (pending) RADIOLOGY 01/15/2023 CTA Vasculature: No thoracic aortic hematoma, aneurysm, dissection or penetrating ulcer. No central pulmonary emboli. Great vessels are unrem (more content not included)... Normal [facility] Comprehensive metabolic 2000 panelon 01-17-2023 Albumin [Mass/Vol] 3.6 g/dL Low 3.9-4.9 [facility] Comment on above: Order Comment: Speci men Type: BLOOD SPECIMENOrdering Facility: [facility] Address: [address] [address] Performed By: #### 2 4323-8 ####[facility] [id number] [address] ALP [Catalytic activity/Vol] 80 U/L Normal 34-123 [facility] Comment on above: Order Comment: Speci men Type: BLOOD SPECIMENOrdering Facility: [facility] Address: [address] [address] Performed By: #### 2 4323-8 ####[facility] [id number] [address] ALT [Catalytic activity/Vol] 8 U/L Normal 7-38 [facility] Comment on above: Order Comment: Speci men Type: BLOOD SPECIMENOrdering Facility: [facility] Address: [address] [address] Performed By: #### 2 4323-8 ####[facility] [id number] [address] STATES OF [facility] Anion gap [Moles/Vol] 10 mmol/L Normal 9-18 [facility] Comment on above: Order Comment: Speci men Type: BLOOD SPECIMENOrdering Facility: [facility] Address: [address] [address] Performed By: #### 2 4323-8 ####[facility] [id number] [address] [place] AST [Catalytic activity/Vol] 13 U/L Normal 13-35 [facility] Comment on above: Order Comment: Speci men Type: BLOOD SPECIMENOrdering Facility: [facility] Address: [address] [place] [address] Performed By: #### 2 4323-8 ####[facility] [id number] [address] [place] Bilirubin [Mass/Vol] mg/dL Low 0.2-1.3 [facility] Comment on above: Order Comment: Speci men Type: BLOOD SPECIMENOrdering Facility: [facility] Address: [address] [address] Performed By: #### 2 4323-8 ####[facility] [id number] [address] Calcium [Mass/Vol] 9.5 mg/dL Normal 8.5-10.2 [facility] Comment on above: Order Comment: Speci men Type: BLOOD SPECIMENOrdering Facility: [facility] Address: [address] [address] Performed By: #### 2 4323-8 ####[facility] [id number] [address] [place] Chloride [Moles/Vol] 111 mmol/L High 97-105 [facility] Comment on above: Order Comment: Speci men Type: BLOOD SPECIMENOrdering Facility: [facility] Address: [address] [address] Performed By: #### 2 4323-8 ####[facility] [id number] [place] [address] [place] CO2 [Moles/Vol] 20 mmol/L Low 22-30 [facility] Comment on above: Order Comment: Abril denis Type: BLOOD SPECIMENOrdering Facility: [facility] Address: [address] [place] [address] Performed By: #### 2 4323-8 ####[facility] [id number] [place] [address] [place] Creatinine [Mass/Vol] 0.71 mg/dL Normal 0.58-0.96 [facility] Comment on above: Order Comment: Abril men Type: BLOOD SPECIMENOrdering Facility: [facility] Address: [address] [place] [address] Performed By: #### 2 4323-8 ####[facility] [id number] [address] [place] ESTIMATED GLOMERULAR FILTRATION RATE 99 mL/min/1.73m??? Normal >=60 [facility] Comment on above: Order Comment: Abril men Type: BLOOD SPECIMENOrdering Facility: [facility] Address: [address] [place] [address] Result Comment: Christie mated Glomerular Filtration Rate (eGFR) is calculated using the 2020 CKD-EPI creatinine equation. This equation utilizes serum creatinine, sex, and age as parameters. The creatinine assay has traceable calibration to isotope dilution-mass spectrometry. Refer to KDIGO guidelines for clinical interpretation. In patients with unstable renal function, e.g. those with acute kidney injury, the eGFR may not accurately reflect actual GFR. Performed By: #### 2 4323-8 ####YE LABORATORYCLIA [id number] [place] [address] [place] Glucose [Mass/Vol] 87 mg/dL Normal 74-99 [facility] Comment on above: Order Comment: Abril cira Type: BLOOD SPECIMENOrdering Facility: [facility] Address: [address] [place] [address] Result Comment: The [place] [employer] (ADA) provides guidance for cutoff values for fasting glucose and random glucose. The ADA defines fasting as no caloric intake for at least 8 hours. Fasting plasma glucose results between 100 to 125 mg/dL indicate increased risk for diabetes (prediabetes). Fasting plasma glucose results greater than or equal to 126 mg/dL meet the criteria for diagnosis of diabetes. In the absence of unequivocal hyperglycemia, results should be confirmed by repeat testing. In a patient with classic symptoms of hyperglycemia or hyperglycemic crisis, random plasma glucose results greater than or equal to 200 mg/dL meet the criteria for diagnosis of diabetes. Reference: Standards of Medical Care in Diabetes 2016, [place] [employer]. Diabetes Care. 2016.39(Suppl 1). Performed By: #### 2 4323-8 ####YE LABORATORYCLIA [id number] [place] [address] [place] Potassium [Moles/Vol] 4.2 mmol/L Normal 3.7-5.1 [facility] Comment on above: Order Comment: Abril denis Type: BLOOD SPECIMENOrdering Facility: [facility] Address: [address] [place] [address] Performed By: #### 2 4323-8 ####YE LABORATORYCLIA [id number] [place] [address] [place] Protein [Mass/Vol] 6.6 g/dL Normal 6.3-8.0 [facility] Comment on above: Order Comment: Abril denis Type: BLOOD SPECIMENOrdering Facility: [facility] Address: [address] [place] [address] Performed By: #### 2 4323-8 ####YE LABORATORYCLIA [id number] [place] [address] [place] Sodium [Moles/Vol] 141 mmol/L Normal 136-144 [facility] Comment on above: Order Comment: Cherriei men Type: BLOOD SPECIMENOrdering Facility: [facility] Address: [address] [address] Performed By: #### 2 4323-8 ####YE LABORATORYCLIA [id number] [place] [address] [place] Urea nitrogen [Mass/Vol] 15 mg/dL Normal 7-21 [facility] Comment on above: Order Comment: Cherriei men Type: BLOOD SPECIMENOrdering Facility: [facility] Address: [address] [address] Performed By: #### 2 4323-8 ####YE LABORATORYCLIA [id number] [place], [place] [address] [place] [address] OF [facility] ARTERIAL BLOOD GASESon 01-16 Base deficit (BldA) [Moles/Vol] -9 mmol/L Low -2-0 [facility] Comment on above: Order Comment: Speci men Type: ARTERIAL BLOOD SPECIMENOrdering Facility: [facility] Address: [address] [address] Performed By: #### A LLBG ####[facility] RESPIRATORYCLIA [id number] [facility] RESPIRAT[facility] [id number] [address] [address] Carboxyhemoglobin (BldA) [Mass fraction] 1.9 % Normal 0.0-2.0 [facility] Comment on above: Order Comment: Speci men Type: ARTERIAL BLOOD SPECIMENOrdering Facility: [facility] Address: [address] [address] Result Comment: Carb oxyhemoglobin Reference Range for Smokers: 2.0-8.0% Performed By: #### A LLBG ####[facility] RESPIRATORYCLIA [id number] [facility] RESPIRATORY [id number] [address] [address] CO2 (Bld) [Partial pressure] 34 mm Hg Low 36-46 [facility] Comment on above: Order Comment: Speci men Type: ARTERIAL BLOOD SPECIMENOrdering Facility: [facility] Address: [address] Performed By: #### A LLBG ####[facility] RESPIRATORYCLIA [id number] [facility]OS[facility] RESPIRATORY [id number] [address] [address] CO2 adjusted to patient's actual temperature (Bld) [Partial pressure] Normal [facility] Comment on above: Order Comment: Speci men Type: ARTERIAL BLOOD SPECIMENOrdering Facility: [facility] Address: [address] Performed By: #### A LLBG ####YE RESPIRATORYCLIA [id number] [facility]OSP[facility] RESPIRATORY [id number] [address] [address] HCO3 (Bld) [Moles/Vol] 16 mmol/L Low 22-26 [facility] Comment on above: Order Comment: Speci men Type: ARTERIAL BLOOD SPECIMENOrdering Facility: [facility] Address: [address] [address] Performed By: #### A LLBG ####[facility] RESPIRATORYUNIVERSITY OF [facility] [id number] [facility]OSP[facility] RESPIRATORY [id number] [address] [address] Hemoglobin (Bld) [Mass/Vol] 10.9 g/dL Low 11.5-15.5 [facility] Comment on above: Order Comment: Speci men Type: ARTERIAL BLOOD SPECIMENOrdering Facility: [facility] Address: [address] [place] [address] Performed By: #### A LLBG ####[facility] RESPIRATORYUNIVERSITY OF [facility] [id number] [facility]OSP[facility] RESPIRATORY [id number] [address] [address] Lactate [Moles/Vol] 0.4 mmol/L Low 0.5-2.2 [facility] Comment on above: Order Comment: Speci men Type: ARTERIAL BLOOD SPECIMENOrdering Facility: [facility] Address: [address] [address] Performed By: #### A LLBG ####[place] [id number] [place] [address] RESPIRATORY [id number] [address] [address] Methemoglobin (Bld) [Mass fraction] 1.1 % Normal 0.0-1.5 [facility] Comment on above: Order Comment: Speci men Type: ARTERIAL BLOOD SPECIMENOrdering Facility: [facility] Address: [address] [address] Performed By: #### A LLBG ####[facility] [id number] [place] [address] RESPIRATORY [id number] [address] [address] O2 THERAPY RA=Room Air Normal [facility] Comment on above: Order Comment: Speci men Type: ARTERIAL BLOOD SPECIMENOrdering Facility: [facility] Address: [address] [address] Performed By: #### A LLBG ####YE RESPIRATORYIA [id number] HOSPITAL RESPIRATORY [id number] [address] [address] Oxygen (Bld) [Partial pressure] 68 mm Hg Low 85-95 [facility] Comment on above: Order Comment: Speci men Type: ARTERIAL BLOOD SPECIMENOrdering Facility: [facility] Address: [address] [address] Performed By: #### A LLBG ####[facility] RESPIRATORYUNIVERSITY OF VER[facility] [id number] [facility]OS[facility] RESPIRATORY [id number] [address] Oxygen adjusted to patient's actual temperature (Bld) [Partial pressure] Normal [facility] Comment on above: Order Comment: Speci men Type: ARTERIAL BLOOD SPECIMENOrdering Facility: [facility] Address: [address] [place] [address] Performed By: #### A LLBG ####[facility] RESPIRATORYUNIVERSITY OF [facility] [id number] HOSPITAL RESPIRATORY [id number] [address] [address] Oxyhemoglobin (BldA) [Mass fraction] 90 % Low 95-98 [facility] Comment on above: Order Comment: Speci men Type: ARTERIAL BLOOD SPECIMENOrdering Facility: [facility] Address: [address] [address] Performed By: #### A LLBG ####[facility] RESPIRATORYIA [id number] HOSPITAL RESPIRATORY [id number] [address] [address] pH (Bld) 7.30 [pH] Low 7.35-7.45 [facility] Comment on above: Order Comment: Speci men Type: ARTERIAL BLOOD SPECIMENOrdering Facility: [facility] Address: [address] Performed By: #### A LLBG ####[facility] [id number] HOSPITAL RESPIRATORY [id number] [address] [address] pH adjusted to patient's actual temperature (Bld) [facility] Comment on above: Order Comment: Speci men Type: ARTERIAL BLOOD SPECIMENOrdering Facility: [facility] Address: [address] Performed By: #### A LLBG ####[facility] RESPIRATORYIA [id number] [facility]OSPITAL RESPIRATORY [id number] [address] [address] Potassium [Moles/Vol] 4.0 mmol/L Normal 3.5-5.0 [facility] Comment on above: Order Comment: Speci men Type: ARTERIAL BLOOD SPECIMENOrdering Facility: [facility] Address: [address] [address] Performed By: #### A LLBG ####[facility] RESPIRATORYIA [id number] HOSPITAL RESPIRATORY [id number] [address] C diff Tox gens Stl Ql TIFFANY+p robeon 01-16-2023 C. difficile toxin genes TIFFANY+probe Ql (Stl) Negative Normal Negative for C. difficile toxin by PCR [facility] Comment on above: Order Comment: Speci men Type: STOOL SPECIMENOrdering Facility: [facility] Address: [address] [address] Performed By: #### 5 4067-4 ####[facility] LABCLIA [id number] [address] [address] [facility] OF [facility] CASE MGT INIT ASSESon 2022 CASE MGT INIT [facility] HNO ID: [id number] Author: Francoise English RN Service: ? Author Type: Registered Nurse Type: Care Mgt Initial Assessment Filed: 01/16/2023 2:59 PM Note Text: CARE MANAGEMENT: ASSESSMENT AND DISCHARGE PLAN SERVICE DATE: January 16, 2023 SERVICE TIME: 12:00 AM PRIMARY CARE PHYSICIAN: Khadijah Curran MD (comfirmed) Primary Contact: Extended Emergency Contact Information Primary Emergency Contact: Noel Spence Address: [address] [place] [address] [place] Mobile Relation: Spouse ADMISSION STATUS: Inpatient Insurance Provider: [facility] CHOICE PLUS NEEDS PRIOR TO DISCHARGE Needs Prior to Discharge: Other: See Comment (Medical clearance) POTENTIAL TRANSITION PLANS Home Based on clinical judgement, Care Management will address the following needs: No transitional/discharge planning needs at this time Patient's perception of need for this admission: Low bp ADVANCE DIRECTIVES Current Advance Directive: None Scenery Builder Attempted to Assist with AD Completion: Yes Action: Education Provided;Other: See Comment (paperwork provided) MS/BEHAVIOR Baseline Mental Status Prior to this Illness what was the patient's Baseline Mental Status?: Alert AND Oriented Prior to this illness, has anyone described the patient having any of the following behaviors?: Not Applicable Relationship of the informant to the patient:: Self READMISSION Last Discharge Date: N/A Is this Within the Past 30 days? From what level of care did patient present?: Home Last discharge within 30 days: Yes Is this a planned readmission?: No Unplanned Reason: New or recurring symptoms of underlying disease Followed Up with Appointment Prior to Admission: Appointment completed Opportunities to avoid readmission were identified: No PATIENT SCREEN Patient/Implant Coordinator Stated Goals: To improve my functional status, To have reduction in symptoms Under the care of a PCP?: Yes, Internal Provider Provider Name: Dr. Curran Last Known Visit: 01/15/23 Does the patient have transportation upon discharge?: Yes Situation: will transport Use of any community resources?: No Are there any potential risks or gaps identified by risk/functional/fall,etc. scores in the EMR?: No Any potential risks related to substance abuse and/or behavioral health?: No Based on clinical judgement, Care Management will address the following needs: No transitional/discharge planning needs at this time CAREGIVER ASSESSMENT Caregiver is ready, willing and able to meet the patient's needs as recommended by the inter-professional team:: No Caregiver needed MEDICAL Medical Needs: None Health Issues Impacting Discharge Plan: Chronic Chronic: IBS, UC Medication Adherance I am convinced of the importance of my prescription medication: 0 - Agree Completely I worry that my prescription medication will do more harm than good to me : 0 - Disagree Completely I feel financially burdened by my okr-gk-pzqrjg expenses for my prescription medication:: 0 - Disagree Completely Risk Score: 0 Patient is categorized as: Low risk < 2 SOCIAL Living Arrangements: Home Lives With: Spouse Financial Resources: Employed Supportive Patient Contact:: Yes Contact Resources: Family Family Name/Phone: Noel Spence [phone] Is Patient Psychosocially Complex?: No Contact Resources: Family Family Name/Phone: Noel Spence [phone] Health Literacy How often do you need to have someone help you when you read instructions, pamphlets, or other written material from your doctor or pharmacy? : 1 - Never How confident are you filling out medical forms by yourself?: 1 - Extremely Food Insecurity: No Food Insecurity Worried About Running Out of Food in the Last Year: Never true Ran Out of Food in the Last Year: Never true Financial Resource Strain: Not on file Transportation Needs: No Transportation Needs Lack of Transportation (Medical): No Lack of Transportation (Non-Medical): No Housing Stability: Low Risk Unable to Pay for Housing in the Last Year: No Number of Places Lived in the Last Year: 1 Unstable Housing in the Last Year: No BEHAVIORAL/COGNITIVE Psychosocial Psychosocial Needs: None FUNCTIONAL How do you manage to accomplish the following: Independent: Ambulation;Bathe/Shower;Tyler ss;Meals/Meal Prep;Going to the bathroom;Medication Management;Transportation to appointments/community FREEDOM OF CHOICE EXPLAINED: [place] of Choice Given: No Reason Not Given: No placements necessary Are you interested in bedside delivery of your medications? No Is Patient Psychosocially Complex?: No ASSESSMENT AND PLAN: Met with patient at bedside, introduced self/role of TCC. Patient presented to [place] ED from her PCP for hypotension, patient admitted to ICU for further evaluation and treatment of sepsis (more content not included)... Normal [facility] CBC panel Auto (Bld)on 01-16 Erythrocyte distribution width (RBC) [Ratio] 13.5 % Normal 11.5-15.0 [facility] Comment on above: Order Comment: Abril denis Type: BLOOD SPECIMEN Ordering Facility: [facility] Address: [address] [place] [address] Performed By: #### 5 5454-3 #### [facility] CLIA [id number] [address] [facility] [place] [address] [place] Hematocrit (Bld) [Volume fraction] 32.8 % Low 36.0-46.0 [facility] Comment on above: Order Comment: Speci men Type: BLOOD SPECIMEN Ordering Facility: [facility] Address: [address] Performed By: #### 5 5454-3 #### [facility] CLIA [id number] [address] [place] [address] Hemoglobin (Bld) [Mass/Vol] 10.8 g/dL Low 11.5-15.5 [facility] Comment on above: Order Comment: Speci men Type: BLOOD SPECIMEN Ordering Facility: [facility] Address: [address] Performed By: #### 5 5454-3 #### [facility] CLIA [id number] [address] [place] [address] [place] MCH (RBC) [Entitic mass] 30.4 pg Normal 26.0-34.0 [facility] Comment on above: Order Comment: Speci men Type: BLOOD SPECIMEN Ordering Facility: [facility] Address: [address] Performed By: #### 5 5454-3 #### [facility] CLIA [id number] [address] [place] [address] [place] MCHC (RBC) [Mass/Vol] 32.9 g/dL Normal 30.5-36.0 [facility] Comment on above: Order Comment: Speci men Type: BLOOD SPECIMEN Ordering Facility: [facility] Address: [address] Performed By: #### 5 5454-3 #### [facility] CLIA [id number] [address] [place] [address] MCV (RBC) [Entitic vol] 92.4 fL Normal 80.0-100.0 [facility] Comment on above: Order Comment: Speci men Type: BLOOD SPECIMEN Ordering Facility: [facility] Address: [address] [place], [place] [address] Performed By: #### 5 5454-3 #### [facility] CLIA [id number] [address] [place] [address] [place] Nucleated RBC (Bld) [#/Vol] 10*3/uL Normal <0.01 [facility] Comment on above: Order Comment: Speci men Type: BLOOD SPECIMEN Ordering Facility: [facility] Address: [address] [place] [address] Performed By: #### 5 5454-3 #### [facility] CLIA [id number] [address] [place] [address] [place] Platelet mean volume (Bld) [Entitic vol] 8.7 fL Low 9.0-12.7 [facility] Comment on above: Order Comment: Speci men Type: BLOOD SPECIMEN Ordering Facility: [facility] Address: [address] [place], [place] [address] Performed By: #### 5 5454-3 #### [facility] CLIA [id number] [address] [place] [address] [place] Platelets (Bld) [#/Vol] 297 10*3/uL Normal 150-400 [facility] Comment on above: Order Comment: Speci men Type: BLOOD SPECIMEN Ordering Facility: [facility] Address: [address] [place], [place] [address] Performed By: #### 5 5454-3 #### [facility] CLIA [id number] [address] [place] [address] [place] RBC (Bld) [#/Vol] 3.55 10*6/uL Low 3.90-5.20 [facility] Comment on above: Order Comment: Speci men Type: BLOOD SPECIMEN Ordering Facility: [facility] Address: [address] [place], [place] [address] Performed By: #### 5 5454-3 #### [facility] CLIA [id number] [address] [place] [address] [place] WBC (Bld) [#/Vol] 15.74 10*3/uL High 3.70-11.00 [facility] Comment on above: Order Comment: Speci men Type: BLOOD SPECIMEN Ordering Facility: [facility] Address: [address] [place] [address] Performed By: #### 5 5454-3 #### [facility] CLIA [id number] [address] [facility] [id number] OF [facility] Erythrocyte distribution width (RBC) [Ratio] 13.6 % Normal 11.5-15.0 [facility] Comment on above: Order Comment: Speci men Type: BLOOD SPECIMENOrdering Facility: [facility] Address: [address] [address] Performed By: #### 5 8410-2 ####YE LABORATORYCLIA [id number] [address] OF [facility] Hematocrit (Bld) [Volume fraction] 32.4 % Low 36.0-46.0 [facility] Comment on above: Order Comment: Speci men Type: BLOOD SPECIMENOrdering Facility: [facility] Address: [address] [address] Performed By: #### 5 8410-2 ####YE LABORATORYCLIA [id number] [address] [place] Hemoglobin (Bld) [Mass/Vol] 10.9 g/dL Low 11.5-15.5 [facility] Comment on above: Order Comment: Speci men Type: BLOOD SPECIMENOrdering Facility: [facility] Address: [address] [address] Performed By: #### 5 8410-2 ####YE LABORATORYCLIA [id number] [address] STATES [facility] MCH (RBC) [Entitic mass] 31.1 pg Normal 26.0-34.0 [facility] Comment on above: Order Comment: Speci men Type: BLOOD SPECIMENOrdering Facility: [facility] Address: [address] [address] Performed By: #### 5 8410-2 ####YE LABORATORYCLIA [id number] [address] MCHC (RBC) [Mass/Vol] 33.6 g/dL Normal 30.5-36.0 [facility] Comment on above: Order Comment: Speci men Type: BLOOD SPECIMENOrdering Facility: [facility] Address: [address] [place] [address] Performed By: #### 5 8410-2 ####YE LABORATORYCLIA [id number] [address] MCV (RBC) [Entitic vol] 92.3 fL Normal 80.0-100.0 [facility] Comment on above: Order Comment: Speci men Type: BLOOD SPECIMENOrdering Facility: [facility] Address: [address] [place] [address] Performed By: #### 5 8410-2 ####YE LABORATORYCLIA [id number] [address] Nucleated RBC (Bld) [#/Vol] 10*3/uL Normal <0.01 [facility] Comment on above: Order Comment: Speci men Type: BLOOD SPECIMENOrdering Facility: [facility] Address: [address] [place] [address] Performed By: #### 5 8410-2 ####YE LABORATORYCLIA [id number] [address] Platelet mean volume (Bld) [Entitic vol] 8.6 fL Low 9.0-12.7 [facility] Comment on above: Order Comment: Speci men Type: BLOOD SPECIMENOrdering Facility: [facility] Address: [address] [place] [address] Performed By: #### 5 8410-2 ####YE LABORATORYCLIA [id number] [address] Platelets (Bld) [#/Vol] 302 10*3/uL Normal 150-400 [facility] Comment on above: Order Comment: Speci men Type: BLOOD SPECIMENOrdering Facility: [facility] Address: [address] [place] [address] Performed By: #### 5 8410-2 ####YE LABORATORYCLIA [id number] [place] [address] [place] RBC (Bld) [#/Vol] 3.51 10*6/uL Low 3.90-5.20 [facility] Comment on above: Order Comment: Speci men Type: BLOOD SPECIMENOrdering Facility: [facility] Address: [address] [place] [address] Performed By: #### 5 8410-2 ####YE LABORATORYCLIA [id number] [place] [address] [facility] WBC (Bld) [#/Vol] 19.81 10*3/uL High 3.70-11.00 [facility] Comment on above: Order Comment: Speci men Type: BLOOD SPECIMENOrdering Facility: [facility] Address: [address] [place] [address] Performed By: #### 5 8410-2 ####[facility] LABORATORYCLIA [id number] [place] [id number] [facility] CONSULTon 01-16-2023 CONSULT HNO ID: [id number] Author: Mary Villarreal MD Service: Gastroenterology Author Type: Physician Type: Consults Filed: 01/16/2023 10:52 AM Note Text: GASTROENTEROLOGY CONSULT NOTE PATIENT NAME: Gabby Spence SERVICE DATE: January 16, 2023 SERVICE TIME: 9:07 AM PRIMARY CARE PHYSICIAN: Khadijah Curran MD ATTENDING PHYSICIAN: Ghulam Kirk MD REASON FOR ADMISSION: Severe sepsis REASON FOR CONSULTATION: UC, chronic diarrhea with worsening abdominal pain HPI: This is a 57 year old female with a past medical history significant for ulcerative colitis (not currently on maintenance medications but previously on Uceris and Asacol), anxiety, HTN and nicotine use who was admitted at [facility] last week for 2 days for diarrhea and dehydration (states was d/c'd 01/11) who was evaluated at [facility] primary care office today as a follow-up from her inpatient stay last week for diarrhea. She was noted to be hypotensive and they offered to call EMS but she declined and had her drive her to [facility] ER. On arrival she was 70/40 and then 55 systolic. She was admitted to ICU and GI consult for UC, chronic diarrhea with worsening abdominal pain. CT in ER significant for colonic wall thickening and edema from the transverse colon to the rectum consistent with colitis. Consider ulcerative colitis. ER notes normal stool studies at [facility] but I do not see these results. She is seen in the ICU and is no longer hypotensive and is not on IVF or pressors. [facility] she was previously on Uceris 9 mg daily and Asacol 400 mg TID. [facility] she had stopped Asacol ~ 1 yr ago and was instructed to stop her Uceris ~ 08/2022 after a colonoscopy in 07/[address] GI, [address] White in [place]. [facility] has chronically looser stools ~ 3-4x per day but since reports worsened diarrhea with up to 6-8 watery non bloody stools per day as well as nocturnal stools. [facility] had trailed Imodium and metamucil without improvement in stool habits. No history of hematochezia or melena. Also since September reports intermittent lower abdominal aching pain that has worsened in the past few weeks. [facility] has has intermittent nause for the past 2 months. Currently complains of lower back pain. Denies heartburn on Protonix 40 mg daily. No dysphagia or odynophagia. Has lost ~ 7-8lbs over the past 2 weeks. Takes Aleve prn. No ASA. Denies recent abx use, sick contacts, new medications or recent travel. ALLERGIES: ALLERGIES Allergen Reactions Wellbutrin [Bupropi* GI Upset Nausea and GI upset Azulfidine [Sulfasa* Hives PAST MEDICAL HISTORY: PAST MEDICAL HISTORY Diagnosis Date Anxiety Back pain Diastolic dysfunction 10/2017 EF 65%, stage 1 diastolic dysfunction per Echo History of colonoscopy 02/25/2008 Done at [facility] [place]/Dr. Vo Ulcerative colitis, unspecified Ulcerative colitis PAST SURGICAL HISTORY: PAST SURGICAL HISTORY Procedure Laterality Date COLONOSCOPY Every 3 years, Dr Whiet in [place] COLONOSCOPY 08/13/2017 EGD, Dr. White, Normal COLONOSCOPY FLX DX W/COLLJ SPEC WHEN PFRMD 08/19/[address] White - info scanned MEDICATIONS: Prior to Admission Medications: baclofen (LIORESAL) 10 mg tablet, Take 1 tablet by mouth three times daily as needed (muscle spasms)., Disp: 90 tablet, Rfl: 5 DULoxetine (CYMBALTA) 60 mg capsule, Take 1 capsule by mouth once daily., Disp: 30 capsule, Rfl: [address] (PROTONIX) 40 mg tablet, TAKE 1 TABLET BY MOUTH DAILY BEFORE BREAKFAST. TAKE 1/2 HOUR BEFORE MEAL, Disp: 30 tablet, Rfl: 11 gabapentin (NEURONTIN) 600 mg tablet, Take 1 tablet by mouth three times daily for 90 days., Disp: 90 tablet, Rfl: 3 amLODIPine (NORVASC) 10 mg tablet, Take 1 tablet by mouth once daily., Disp: 90 tablet, Rfl: 3 ondansetron orally disintegrating (ZOFRAN ODT) 4 mg disintegrating tablet, Take 1 tablet by mouth every 6 hours as needed for nausea/vomiting., Disp: 30 tablet, Rfl: 0 lisinopril (ZESTRIL, PRINIVIL) 20 mg tablet, Take 1 tablet by mouth once daily., Disp: 90 tablet, Rfl: 3 budesonide (UCERIS) 9 mg TaDE, Take 1 tablet by mouth once daily., Disp: 30 tablet, Rfl: 11 furosemide (LASIX) 20 mg tablet, Take 1 tablet by mouth once daily., Disp: 30 tablet, Rfl: 11 Current Hospital Medications: Current Facility-Administered Medications Medication Dose Route Frequency NaCl 0.9% iv flush bag 20 mL INTRAVENOUS PRN lactated ringers 1,000 mL iv bolus 1,000 mL INTRAVENOUS ONCE pantoprazole DR 40 mg tab(s) (PROTONIX) 40 mg ORAL DAILY (6 AM) DULoxetine 60 mg cap(s) (CYMBALTA) 60 mg ORAL DAILY heparin 5,000 Units injection 5,000 Units SUBCUTANEOUS q 12 H lidocaine 4 % 1 Patch (SALONPAS) 1 Patch TRANSDERMAL DAILY AT 9 PM And lidocaine patch - REMOVE OTHER DAILY And lidocaine - VERIFY PATCH OTHER q 8 H FAMILY HISTORY: Father CRC SOCIAL HISTORY: Marital status: Children: none Alcohol use: denies Tobacco use: 8 (more content not included)... Normal [facility] Comprehensive metabolic 2000 panelon 01-16-2023 Albumin [Mass/Vol] 3.5 g/dL Low 3.9-4.9 [facility] Comment on above: Order Comment: Speci men Type: BLOOD SPECIMEN Ordering Facility: [facility] Address: [address] [place] [place], [place] Performed By: #### 5 5454-3 #### [facility] CLIA [id number] [address] [place] [address] [place] ALP [Catalytic activity/Vol] 78 U/L Normal 34-123 [facility] Comment on above: Order Comment: Speci men Type: BLOOD SPECIMEN Ordering Facility: [facility] Address: [address] [place] [address] Performed By: #### 5 5454-3 #### [facility] CLIA [id number] [address] [place] ALT [Catalytic activity/Vol] 7 U/L Normal 7-38 [facility] Comment on above: Order Comment: Speci men Type: BLOOD SPECIMEN Ordering Facility: [facility] Address: [address] Performed By: #### 5 5454-3 #### [facility] CLIA [id number] [address] [place] [address] [place] Anion gap [Moles/Vol] 15 mmol/L Normal 9-18 [facility] Comment on above: Order Comment: Speci men Type: BLOOD SPECIMEN Ordering Facility: [facility] Address: [address] Performed By: #### 5 5454-3 #### [facility] CLIA [id number] [address] [place] AST [Catalytic activity/Vol] 11 U/L Low 13-35 [facility] Comment on above: Order Comment: Speci men Type: BLOOD SPECIMEN Ordering Facility: [facility] Address: [address] [place] [address] Performed By: #### 5 5454-3 #### [facility] CLIA [id number] [address] [place] [address] [place] Bilirubin [Mass/Vol] mg/dL Low 0.2-1.3 [facility] Comment on above: Order Comment: Speci men Type: BLOOD SPECIMEN Ordering Facility: [facility] Address: [address] Performed By: #### 5 5454-3 #### [facility] CLIA [id number] [address] [place] [address] [place] Calcium [Mass/Vol] 8.8 mg/dL Normal 8.5-10.2 [facility] Comment on above: Order Comment: Speci men Type: BLOOD SPECIMEN Ordering Facility: [facility] Address: [address] Performed By: #### 5 5454-3 #### [facility] CLIA [id number] [address] [place] [address] [place] Chloride [Moles/Vol] 106 mmol/L High 97-105 [facility] Comment on above: Order Comment: Speci men Type: BLOOD SPECIMEN Ordering Facility: [facility] Address: [address] Performed By: #### 5 5454-3 #### [facility] CLIA [id number] [address] [place] [address] [place] CO2 [Moles/Vol] 15 mmol/L Low 22-30 [facility] Comment on above: Order Comment: Speci men Type: BLOOD SPECIMEN Ordering Facility: [facility] Address: [address] [place] [address] Performed By: #### 5 5454-3 #### [facility] CLIA [id number] [address] [place] [address] [place] Creatinine [Mass/Vol] 1.66 mg/dL High 0.58-0.96 [facility] Comment on above: Order Comment: Speci men Type: BLOOD SPECIMEN Ordering Facility: [facility] Address: [address] Performed By: #### 5 5454-3 #### [facility] CLIA [id number] [address] [place] [address] [place] ESTIMATED GLOMERULAR FILTRATION RATE 36 mL/min/1.73m??? Low >=60 [facility] Comment on above: Order Comment: Abril denis Type: BLOOD SPECIMEN Ordering Facility: [facility] Address: [address] [place] [address] Result Comment: Christie mated Glomerular Filtration Rate (eGFR) is calculated using the 2020 CKD-EPI creatinine equation. This equation utilizes serum creatinine, sex, and age as parameters. The creatinine assay has traceable calibration to isotope dilution-mass spectrometry. Refer to KDIGO guidelines for clinical interpretation. In patients with unstable renal function, e.g. those with acute kidney injury, the eGFR may not accurately reflect actual GFR. Performed By: #### 5 5454-3 #### [facility] CLIA [id number] [address] [place] [address] [place] Glucose [Mass/Vol] 103 mg/dL High 74-99 [facility] Comment on above: Order Comment: Abril denis Type: BLOOD SPECIMEN Ordering Facility: [facility] Address: [address] [place] [address] Result Comment: The [place] [employer] (ADA) provides guidance for cutoff values for fasting glucose and random glucose. The ADA defines fasting as no caloric intake for at least 8 hours. Fasting plasma glucose results between 100 to 125 mg/dL indicate increased risk for diabetes (prediabetes). Fasting plasma glucose results greater than or equal to 126 mg/dL meet the criteria for diagnosis of diabetes. In the absence of unequivocal hyperglycemia, results should be confirmed by repeat testing. In a patient with classic symptoms of hyperglycemia or hyperglycemic crisis, random plasma glucose results greater than or equal to 200 mg/dL meet the criteria for diagnosis of diabetes. Reference: Standards of Medical Care in Diabetes 2016, [place] [employer]. Diabetes Care. 2016.39(Suppl 1). Performed By: #### 5 5454-3 #### [facility] CLIA [id number] [facility] [place] [address] [place] Potassium [Moles/Vol] 3.9 mmol/L Normal 3.7-5.1 [facility] Comment on above: Order Comment: Speci men Type: BLOOD SPECIMEN Ordering Facility: [facility] Address: [address] Performed By: #### 5 5454-3 #### [facility] CLIA [id number] [address] [place] [address] [place] Protein [Mass/Vol] 6.3 g/dL Normal 6.3-8.0 [facility] Comment on above: Order Comment: Speci men Type: BLOOD SPECIMEN Ordering Facility: [facility] Address: [address] Performed By: #### 5 5454-3 #### [facility] CLIA [id number] [address] [place] [address] [place] Sodium [Moles/Vol] 136 mmol/L Normal 136-144 [facility] Comment on above: Order Comment: Speci men Type: BLOOD SPECIMEN Ordering Facility: [facility] Address: [address] Performed By: #### 5 5454-3 #### [facility] CLIA [id number] [address] [place] [address] [place] Urea nitrogen [Mass/Vol] 32 mg/dL High 7-21 [facility] Comment on above: Order Comment: Speci men Type: BLOOD SPECIMEN Ordering Facility: [facility] Address: [address] Performed By: #### 5 5454-3 #### [facility] CLIA [id number] [address] [place] [address] [place] Albumin [Mass/Vol] 3.7 g/dL Low 3.9-4.9 [facility] Comment on above: Order Comment: Speci men Type: BLOOD SPECIMENOrdering Facility: [facility] Address: [address] Performed By: #### 2 4323-8, 27704-26, ####[facility]ORYCLIA [id number] [place] [address] [place] ALP [Catalytic activity/Vol] 82 U/L Normal 34-123 [facility] Comment on above: Order Comment: Speci men Type: BLOOD SPECIMENOrdering Facility: [facility] Address: [address] [place] [address] Performed By: #### 2 4323-8, 2776-10, ####[facility]ATORYCLIA [id number] [place] [address] [place] ALT [Catalytic activity/Vol] 8 U/L Normal 7-38 [facility] Comment on above: Order Comment: Speci men Type: BLOOD SPECIMENOrdering Facility: [facility] Address: [address] [place] [address] Performed By: #### 2 4323-8, 2776-10, ####[facility]ATORYCLIA [id number] [address] [place] [facility] Anion gap [Moles/Vol] 16 mmol/L Normal 9-18 [facility] Comment on above: Order Comment: Speci men Type: BLOOD SPECIMENOrdering Facility: [facility] Address: [address] [place] [address] Performed By: #### 2 4323-8, 2776-10, ####[facility]ORYCLIA [id number] [address] [place] AST [Catalytic activity/Vol] 11 U/L Low 13-35 [facility] Comment on above: Order Comment: Speci men Type: BLOOD SPECIMENOrdering Facility: [facility] Address: [address] [place] [address] Performed By: #### 2 4323-8, 2776-10, ####[facility]ORATORYCLIA [id number] [address] [place] Bilirubin [Mass/Vol] mg/dL Low 0.2-1.3 [facility] Comment on above: Order Comment: Speci men Type: BLOOD SPECIMENOrdering Facility: [facility] Address: [address] [place] [address] Performed By: #### 2 4323-8, 2776-10, ####[facility] LABORATORYCLIA [id number] [place] [address] [place] Calcium [Mass/Vol] 8.6 mg/dL Normal 8.5-10.2 [facility] Comment on above: Order Comment: Speci men Type: BLOOD SPECIMENOrdering Facility: [facility] Address: [address] [place] [address] Performed By: #### 2 4323-8, 2776-10, ####[facility] LABORATORYCLIA [id number] [place] [address] [place] Chloride [Moles/Vol] 104 mmol/L Normal 97-105 [facility] Comment on above: Order Comment: Speci men Type: BLOOD SPECIMENOrdering Facility: [facility] Address: [address] [place] [address] Performed By: #### 2 4323-8, 2776-10, ####[facility]ORATORYCLIA [id number] [place] [address] [place] CO2 [Moles/Vol] 16 mmol/L Low 22-30 [facility] Comment on above: Order Comment: Speci men Type: BLOOD SPECIMENOrdering Facility: [facility] Address: [address] [place] [address] Performed By: #### 2 4323-8, 2776-10, ####[facility] LABORATORYCLIA [id number] [place] [address] [place] Creatinine [Mass/Vol] 2.38 mg/dL High 0.58-0.96 [facility] Comment on above: Order Comment: Speci men Type: BLOOD SPECIMENOrdering Facility: [facility] Address: [address] [place] [address] Performed By: #### 2 4323-8, 27704-26, ####[facility] LABORATORYCLIA [id number] [place] [address] [place] ESTIMATED GLOMERULAR FILTRATION RATE 23 mL/min/1.73m??? Low >=60 [facility] Comment on above: Order Comment: Abril denis Type: BLOOD SPECIMENOrdering Facility: [facility] Address: [address] [place], [place] [address] Result Comment: Christie mated Glomerular Filtration Rate (eGFR) is calculated using the 2020 CKD-EPI creatinine equation. This equation utilizes serum creatinine, sex, and age as parameters. The creatinine assay has traceable calibration to isotope dilution-mass spectrometry. Refer to KDIGO guidelines for clinical interpretation. In patients with unstable renal function, e.g. those with acute kidney injury, the eGFR may not accurately reflect actual GFR. Performed By: #### 2 4323-8, 2777-, ####[facility]ORATORYCLIA [id number] [place] [address] [place] Glucose [Mass/Vol] 143 mg/dL High 74-99 [facility] Comment on above: Order Comment: Abril denis Type: BLOOD SPECIMENOrdering Facility: [facility] Address: [address] [place], [place] [address] Result Comment: The [place] Diabetes [employer] (ADA) provides guidance for cutoff values for fasting glucose and random glucose. The ADA defines fasting as no caloric intake for at least 8 hours. Fasting plasma glucose results between 100 to 125 mg/dL indicate increased risk for diabetes (prediabetes). Fasting plasma glucose results greater than or equal to 126 mg/dL meet the criteria for diagnosis of diabetes. In the absence of unequivocal hyperglycemia, results should be confirmed by repeat testing. In a patient with classic symptoms of hyperglycemia or hyperglycemic crisis, random plasma glucose results greater than or equal to 200 mg/dL meet the criteria for diagnosis of diabetes. Reference: Standards of Medical Care in Diabetes 2016, [place] [employer]. Diabetes Care. 2016.39(Suppl 1). Performed By: #### 2 4323-8, 2777-, ####[facility]ORYCLIA [id number] [place] [id number] [place] Potassium [Moles/Vol] 4.1 mmol/L Normal 3.7-5.1 [facility] Comment on above: Order Comment: Speci men Type: BLOOD SPECIMENOrdering Facility: [facility] Address: [place] [address] Performed By: #### 2 4323-8, 2776-10, ####[facility]ORATORYCLIA [id number] [address] [place] Protein [Mass/Vol] 6.5 g/dL Normal 6.3-8.0 [facility] Comment on above: Order Comment: Speci men Type: BLOOD SPECIMENOrdering Facility: [facility] Address: [address] [place] [address] Performed By: #### 2 4323-8, 27704-26, ####[facility] LABORATORYCLIA [id number] [place] [address] [place] Sodium [Moles/Vol] 136 mmol/L Normal 136-144 [facility] Comment on above: Order Comment: Speci men Type: BLOOD SPECIMENOrdering Facility: [facility] Address: [address] [place] [address] Performed By: #### 2 4323-8, 2776-10, ####[facility] LABORATORYCLIA [id number] [place] [address] [place] Urea nitrogen [Mass/Vol] 35 mg/dL High 7-21 [facility] Comment on above: Order Comment: Speci men Type: BLOOD SPECIMENOrdering Facility: [facility] Address: [address] [place] [address] Performed By: #### 2 4323-8, 2776-10, ####[facility] LABORATORYCLIA [id number] [place] [address] [place] ED NOTEon 01-16-2023 ED NOTE HNO ID: [id number] Author: Marcelo Arechiga RN Service: ? Author Type: Registered Nurse Type: ED Notes Filed: 01/15/2023 10:47 PM Note Text: Report to zoila PEDRAZA [facility] FECAL LACTOFERRIN/LEUKOCYTES on 01-16-2023 Lactoferrin IA Ql (Stl) Positive for lactoferrin, which may indicate presence of fecal white blood cells Abnormal Negative [facility] Comment on above: Order Comment: Speci men Type: STOOL SPECIMENOrdering Facility: [facility] Address: [address] [place] [address] Performed By: #### F ECWBC ####[facility] [id number] [place] [address] [place] G lamblia+Cryptosp Ag Stl Ql IAon 01-16-2023 G. lamblia+Cryptosporidiu m sp Ag IA Ql (Stl) CRYPTOSPORIDIUM ANTIGEN BY EIA: Negative for Cryptosporidium by EIA. GIARDIA ANTIGEN BY EIA: Negative for Giardia lamblia by EIA. Normal [facility] Comment on above: Performed By: #### 4 8059-0 ####[facility] [id number] [place] [address] [place] Gastrointestinal pathogens i dentified TIFFANY+probe Nom (Stl)on 01-16-2023 Campylobacter sp DNA TIFFANY+probe Nom (Unsp spec) Not detected Normal Not Detected [facility] Comment on above: Order Comment: Speci men Type: STOOL SPECIMENOrdering Facility: [facility] Address: [address] [place] [address] Performed By: #### 7 9390-1 ####[facility] [id number] [place] [address] [place] Salmonella sp DNA TIFFANY+probe Ql (Unsp spec) Not detected Normal Not Detected [facility] Comment on above: Order Comment: Speci men Type: STOOL SPECIMENOrdering Facility: [facility] Address: [address] [place] [address] Performed By: #### 7 9390-1 ####[facility] [id number] [place] [address] [place] Shiga toxin stx gene TIFFANY+probe Nom (Unsp spec) Not detected Normal Not Detected [facility] Comment on above: Order Comment: Speci men Type: STOOL SPECIMENOrdering Facility: [facility] Address: [address] [place] [id number] Performed By: #### 7 9390-1 ####[facility] [id number] [address] Shigella sp DNA TIFFANY+probe Ql (Unsp spec) Not detected Normal Not Detected [facility] Comment on above: Order Comment: Speci men Type: STOOL SPECIMENOrdering Facility: [facility] Address: [address] [place] [address] Performed By: #### 7 9390-1 ####[facility] [id number] [address] HISTORY PHYSICALon HISTORY PHYSICAL HNO ID: [id number] Author: Torrie Brandt APRN.SLITTER OPERATOR Service: Critical Care Author Type: Nurse Practitioner Type: HANDP Filed: 01/16/2023 1:37 AM Note Text: SERVICE DATE: 01/15/2023 SERVICE TIME: 11:34 PM [facility] HANDP NOTE HPI: Ms. Spence is a 57 year old female, PMHx significant for ulcerative colitis, anxiety, HTN and nicotine use, who presented to MED with CC of diarrhea x multiple days with associated abdominal cramping. Per the patient, she has not had adequate PO intake. ED workup: -CMP: NA 135, CO2 16, BUN 38, Cr. 3.48, anion gap 20 -VB.25/39/<31/16 with LA 1 -CBC: WBC 20.42 -Covid/flu negative -CT AP: with colonic wall thickening and edema from the transverse colon to the rectum co consistent with colitis. Partially calcified left adnexal lesion and possible left hydrosalpinx. -EKG: NSR 74 -received sepsis bolus (2750 ml), vancomycin, zosyn Pt blood pressure stabilized and patient will be admitted to ICU for further workup and management. Subjective PAST MEDICAL HISTORY Diagnosis Date Anxiety Back pain Diastolic dysfunction 10/2017 EF 65%, stage 1 diastolic dysfunction per Echo History of colonoscopy 02/25/2008 Done at [facility]/Dr. Vo Ulcerative colitis, unspecified Ulcerative colitis PAST SURGICAL HISTORY Procedure Laterality Date COLONOSCOPY Every 3 years, [address] White in [place] COLONOSCOPY 08/13/2017 EGD, Dr. White, Normal COLONOSCOPY FLX DX W/COLLJ SPEC WHEN PFRMD 08/19/[address] White - info scanned FAMILY HISTORY Problem Relation Age of Onset Cancer Mother Cancer Father Heart disease Brother 3 brothers - 52years old 53 yesr old and 54 years old Social History Occupational History Not on file Tobacco Use Smoking status: Every Day Types: Cigarettes Start date: 10/27/1981 Smokeless tobacco: Never Tobacco comments: Cut back to 9-10 cigarettes per day Vaping Use Vaping Use: Never used Substance and Sexual Activity Alcohol use: Yes Comment: once in a while Drug use: No Sexual activity: Not on file ALLERGIES Allergen Reactions Wellbutrin [Bupropi* GI Upset Nausea and GI upset Azulfidine [Sulfasa* Hives PRIOR TO ADMISSION MEDICATIONS: baclofen (LIORESAL) 10 mg tablet, Take 1 tablet by mouth three times daily as needed (muscle spasms)., Disp: 90 tablet, Rfl: 5 DULoxetine (CYMBALTA) 60 mg capsule, Take 1 capsule by mouth once daily., Disp: 30 capsule, Rfl: [address] (PROTONIX) 40 mg tablet, TAKE 1 TABLET BY MOUTH DAILY BEFORE BREAKFAST. TAKE 1/2 HOUR BEFORE MEAL, Disp: 30 tablet, Rfl: 11 gabapentin (NEURONTIN) 600 mg tablet, Take 1 tablet by mouth three times daily for 90 days., Disp: 90 tablet, Rfl: 3 amLODIPine (NORVASC) 10 mg tablet, Take 1 tablet by mouth once daily., Disp: 90 tablet, Rfl: 3 ondansetron orally disintegrating (ZOFRAN ODT) 4 mg disintegrating tablet, Take 1 tablet by mouth every 6 hours as needed for nausea/vomiting., Disp: 30 tablet, Rfl: 0 lisinopril (ZESTRIL, PRINIVIL) 20 mg tablet, Take 1 tablet by mouth once daily., Disp: 90 tablet, Rfl: 3 budesonide (UCERIS) 9 mg TaDE, Take 1 tablet by mouth once daily., Disp: 30 tablet, Rfl: 11 furosemide (LASIX) 20 mg tablet, Take 1 tablet by mouth once daily., Disp: 30 tablet, Rfl: 11 REVIEW OF SYSTEMS: PAIN ASSESSMENT: chronic back and neck pain. Abdominal cramping GENERAL: No weight loss, malaise or fevers HEENT: Negative for frequent or significant headaches, No changes in hearing or vision, no nose bleeds or other nasal problems NECK: Positive for chronic neck pain RESPIRATORY: Negative for cough, hemoptysis, wheezing, COPD, dyspnea or shortness of breath CARDIOVASCULAR: Negative for chest pain, leg swelling, hypertension, CHF or palpitations GI: Positive for diarrhea : No history of dysuria, frequency or incontinence MUSCULOSKELETAL: back pain SKIN: Negative for lesions, rash, and itching NEURO: No history of headaches, syncope, paralysis, seizures or tremors Objective Admission Weight: Weight: 85.3 kg (188 lb) VITAL SIGNS BP 119/69 Pulse 79 Temp (Src) 97.5 (Oral) Resp 16 Ht 5' 7 (1.70m) Wt 188 lb 11.4 oz (85.6kg) SpO2 99% LMP 07/14/2013 BMI 29.55 kg/(m2). O2 Therapy: Room Air RESPIRATORY Mechanical Ventilation: RA PHYSICAL EXAM Neuro: Awake, Follows commands, Alert, and Moving all extremities Pulmonary: Clear to auscultation. Breath Sounds Equal: Yes Cardiovascular: Regular rhythm Abdomen: Soft, Nontender, and hyperactive bowel sounds Extremities: Edema- No Peripheral pulses- Present all extremities Wounds/Drsgs- N/A DATA: Diagnostic tests reviewed for today's visit: Most recent labs and imaging results. Most recent EKG ICU Checklist A= Assess, Prevent, Manage Pain C= Choice of Sedation and Analgesia B= Both Spo (more content not included)... [facility] HbA1c (Bld)on 01-16-2023 Average glucose Estimated from glycated hemoglobin (Bld) [Mass/Vol] 126 mg/dL [facility] Comment on above: Order Comment: Speci men Type: BLOOD SPECIMEN Ordering Facility: [facility] Address: [address] [address] Result Comment: eAG: (Estimated average glucose) is a calculated value from HgbA1c and is surgical device sales representative of the average blood glucose level in the last 2-3 month period. Performed By: #### 5 5454-3 #### [facility] CLIA [id number] [address] [place] [address] [place] HbA1c (Bld) [Mass fraction] 6.0 % High 4.3-5.6 [facility] Comment on above: Order Comment: Abril men Type: BLOOD SPECIMEN Ordering Facility: [facility] Address: [address] [place] [address] Result Comment: er ican Diabetes Association guidelines indicate that patients with HgbA1c in the range 5.7-6.4% are at increased risk for development of diabetes, and intervention by lifestyle modification may be beneficial. HgbA1c greater or equal to 6.5% is considered diagnostic of diabetes. Performed By: #### 5 5454-3 #### [facility] CLIA [id number] [address] [place] [address] [place] Magnesium SerPl-mCncon 01-16 Magnesium [Mass/Vol] 2.0 mg/dL Normal 1.7-2.3 [facility] Comment on above: Order Comment: Abril men Type: BLOOD SPECIMEN Ordering Facility: [facility] Address: [address] [address] Performed By: #### 5 5454-3 #### [facility] CLIA [id number] [address] [place] [address] [place] Magnesium [Mass/Vol] 1.8 mg/dL Normal 1.7-2.3 [facility] Comment on above: Order Comment: Abril men Type: BLOOD SPECIMENOrdering Facility: [facility] Address: [address] [place] [address] Performed By: #### 2 4323-8, 2777-1, 89043-2 ####[facility]ATORYCLIA [id number] [place] [address] [place] NUTRITIONon 01-16-2023 NUTRITION HNO ID: [id number] Author: Torrie Richards RD Service: Nutrition Therapy Author Type: Registered Dietitian Type: Nutrition Filed: 01/16/2023 11:24 AM Note Text: NUTRITION THERAPY SCREEN NOTE SERVICE DATE: 01/16/2023 SERVICE TIME: 10:30 AM Care Plan: Follow for diet advancement to goal Monitor and Evaluation: Meet greater than 75% of estimated needs Physician progress notes and labs reviewed. HPI: 57 year old female admitted to the ICU with sepsis, ulcerative colitis, and dehydration, to be transferred to [facility] today Intake History: Nutrition Intake Prior to Admission: Less than 75% estimated energy needs (couple days) Current Nutrition Intake: Less than 75% estimated energy needs Current Intake Over time: (day) Diet Orders (From admission, onward) Start Ordered 01/15/23 233 Diet Liquid START NOW Question: Liquid Diet Answer: CLEAR LIQUID 01/15/23 232 Anthropometrics: Height: 170.2 cm (5' 7) Weight: 85.6 kg (188 lb 11.4 oz) Usual Weight: 88 kg (194 lb) 10/23/22. 02/21/22 211 lbs. 03/16/22 196 lbs, 06/04/22 200 lbs Usual Weight Obtained From: Chart Review Weight change percentage over time: 3% weight change x 3 months BMI: 29.56 MNT Billing: $ Initial Assessment: 1-15 minutes SIGNATURE: Torrie Richards RD PATIENT NAME: Gabby Spence DATE: January 16, 2023 TIME: 11:22 AM Normal [facility] OCCULT BLD EXAM-DIAGon 01-16 OCCULT BLD EXAM-DIAG Positive Abnormal [facility] Comment on above: Performed By: #### O BDX ####[facility]ORATORYCLIA [id number] [place] [address] [place] Phosphate SerPl-mCncon 01-16 Phosphate [Mass/Vol] 4.6 mg/dL Normal 2.7-4.8 [facility] Comment on above: Order Comment: Speci men Type: BLOOD SPECIMEN Ordering Facility: [facility] Address: [address] [address] Performed By: #### 5 5454-3 #### [facility] CLIA [id number] [address] [facility] [address] [place] Phosphate [Mass/Vol] 4.6 mg/dL Normal 2.7-4.8 [facility] Comment on above: Order Comment: Speci men Type: BLOOD SPECIMENOrdering Facility: [facility] Address: [address] [address] Performed By: #### 2 4323-8, 2777-1, 90317-9 ####[facility] LABORATORYCLIA [id number] [place] [address] [place] [facility] [place] STAPH AUREUS PCRon S. aureus and MRSA panel TIFFANY+probe (Nose) Normal Negative [facility] Comment on above: Order Comment: Speci men Type: SWAB OF INTERNAL NOSEOrdering Facility: [facility] Address: [address] [place] [address] Result Comment: Nega tive for Staphylococcus aureus by PCR. Negative for MRSA by PCR Performed By: #### S APCR ####[facility] LABCLIA [id number] [facility] [place] [address] [place] Urinalysis complete panel (U )on 01-16-2023 Bacteria LM.HPF (Urine sed) [#/Area] Few Abnormal None Seen [facility] Comment on above: Order Comment: Speci men Type: URINE SPECIMENOrdering Facility: [facility] Address: [address] [address] Performed By: #### 2 4356-8 ####[facility] LABORATORYCLIA [id number] [place] [address] [place] Bilirubin Ql (U) Negative Normal Negative [facility] Comment on above: Order Comment: Speci men Type: URINE SPECIMENOrdering Facility: [facility] Address: [address] [place] [address] Performed By: #### 2 4356-8 ####[facility] LABORATORYCLIA [id number] [address] [place] Clarity (Unsp spec) Clear Normal Clear [facility] Comment on above: Order Comment: Speci men Type: URINE SPECIMENOrdering Facility: [facility] Address: [address] [place] [address] Performed By: #### 2 4356-8 ####[facility] LABORATORYCLIA [id number] [place] [address] [place] Color (U) Yellow Normal Yellow [facility] Comment on above: Order Comment: Speci men Type: URINE SPECIMENOrdering Facility: [facility] Address: [address] [place] [address] Performed By: #### 2 4356-8 ####[facility] LABORATORYCLIA [id number] [place] [address] [place] Epithelial cells LM.HPF (Urine sed) [#/Area] Few Normal [facility] Comment on above: Order Comment: Speci men Type: URINE SPECIMENOrdering Facility: [facility] Address: [address] [place] [address] Result Comment: Few Performed By: #### 2 4356-8 ####[facility] LABORATORYCLIA [id number] [address] [place] Glucose Test strip (U) [Mass/Vol] Negative Normal Negative [facility] Comment on above: Order Comment: Speci men Type: URINE SPECIMENOrdering Facility: [facility] Address: [address] [place] [address] Performed By: #### 2 4356-8 ####[facility] LABORATORYCLIA [id number] [place] [address] [place] Hemoglobin Ql (U) Trace Normal Negative, Trace [facility] Comment on above: Order Comment: Speci men Type: URINE SPECIMENOrdering Facility: [facility] Address: [address] [place] [address] Performed By: #### 2 4356-8 ####[facility] LABORATORYCLIA [id number] [place] [address] [place] Ketones Ql (U) Negative Normal Negative [facility] Comment on above: Order Comment: Speci men Type: URINE SPECIMENOrdering Facility: [facility] Address: [address] [place] [address] Performed By: #### 2 4356-8 ####[facility] LABORATORYCLIA [id number] [address] Leukocyte esterase Test strip Ql (U) Trace Abnormal Negative [facility] Comment on above: Order Comment: Speci men Type: URINE SPECIMENOrdering Facility: [facility] Address: [address] [place] [address] Performed By: #### 2 4356-8 ####[facility] LABORATORYCLIA [id number] [address] Nitrite Ql (U) Negative Normal Negative [facility] Comment on above: Order Comment: Speci men Type: URINE SPECIMENOrdering Facility: [facility] Address: [address] [place] [address] Performed By: #### 2 4356-8 ####[facility]ORATORYCLIA [id number] [address] [place] pH (U) 5.5 [pH] Normal 5.0-8.0 [facility] Comment on above: Order Comment: Speci men Type: URINE SPECIMENOrdering Facility: [facility] Address: [address] [place] [address] Performed By: #### 2 4356-8 ####[facility] LABORATORYCLIA [id number] [address] [place] Protein (U) [Mass/Vol] Trace Abnormal Negative [facility] Comment on above: Order Comment: Speci men Type: URINE SPECIMENOrdering Facility: [facility] Address: [address] [place] [address] Performed By: #### 2 4356-8 ####[facility] LABORATORYCLIA [id number] [place] [address] [place] RBC LM.HPF (Urine sed) [#/Area] 3-5 /HPF Abnormal 0-3 /HPF [facility] Comment on above: Order Comment: Speci men Type: URINE SPECIMENOrdering Facility: [facility] Address: [address] [place] [address] Performed By: #### 2 4356-8 ####[facility] LABORATORYCLIA [id number] [address] Specific gravity (U) [Rel density] <=1.005 Low 1.005-1.03 0 [facility] Comment on above: Order Comment: Speci men Type: URINE SPECIMENOrdering Facility: [facility] Address: [address] [place] [address] Performed By: #### 2 4356-8 ####[facility] LABORATORYCLIA [id number] [address] Urobilinogen Ql (U) 0.2 EU/dL Normal 0.2-1.0 EU/dL [facility] Comment on above: Order Comment: Speci men Type: URINE SPECIMENOrdering Facility: [facility] Address: [address] [place] [address] Performed By: #### 2 4356-8 ####[facility] LABORATORYCLIA [id number] [address] WBC LM.HPF (Urine sed) [#/Area] 0-5 /HPF Normal 0-5 /HPF [facility] Comment on above: Order Comment: Speci men Type: URINE SPECIMENOrdering Facility: [facility] Address: [address] [place] [address] Performed By: #### 2 4356-8 ####[facility] LABORATORYCLIA [id number] [address] [place] ALLIED HEALTHon 01-15-2023 ALLIED HEALTH HNO ID: [id number] Author: RT Stacey(R) Service: Radiology Author Type: Technologist Type: Allied Health Filed: 01/15/2023 7:42 PM Note Text: Radiology Service Progress Note DATE OF SERVICE: January 15, 2023 TIME: 7:38 PM PATIENT IDENTITY VERIFICATION COMPLETED USING TWO (2) STANDARD IDENTIFIERS: Name and Date of confirmed by patient verbally and Name and Date of confirmed by identification band. FALL SCREENING: Has the patient had 2 falls in the last year or 1 fall with injury or currently using an Ambulatory Assistive Device (Walker, Cane, Wheelchair, Crutches, etc.)? Emergency Room Patient: Screened in ED PATIENT GENDER DATA: Female. status: : No status: NO. PATIENT RELEVANT IMPLANT DATA REVIEWED: Not Applicable ALLERGIES: Reviewed and unchanged CONTRAST ALLERGY: NO. EXAM: CT -CONTRAST INDUCED NEPHROPATHY RISK FACTORS: Not applicable CREATININE: Creatinine Date Value Ref Range Status 01/15/2023 3.48 (H) 0.58 - 0.96 mg/dL Final 05/31/2022 0.88 0.58 - 0.96 mg/dL Final 02/17/2021 0.73 0.58 - 0.96 mg/dL Final Estimated Glomerular Filtration Rate Date Value Ref Range Status 01/15/2023 15 (L) >=60 mL/min/1.73m? Final Comment: Estimated Glomerular Filtration Rate (eGFR) is calculated using the 2020 CKD-EPI creatinine equation. This equation utilizes serum creatinine, sex, and age as parameters. The creatinine assay has traceable calibration to isotope dilution-mass spectrometry. Refer to KDIGO guidelines for clinical interpretation. In patients with unstable renal function, e.g. those with acute kidney injury, the eGFR may not accurately reflect actual GFR. eGFR- Date Value Ref Range Status 02/17/2021 >60 Final P.O.C.T. RESULTS: EMERGENT EXAM OK TO SCAN WITHOUT LAB RESULTS PER DR LOPEZ January 15, 2023 TREATMENT: N/A PERIPHERAL IV DATA: Inpatient - refer to LDA documentation RADIOLOGY DEPARTMENT: CT; Exam(s) Completed: CTA Abdomen Pelvis and CTA GATED CHEST SIGNATURE: RT Stacey(R) PATIENT NAME: Gabby Spence DATE: January 15, 2023 TIME: 7:38 PM Normal [facility] Bacteria Bld Culton 01-16-20 23 Bacteria identified Cx Nom (Bld) CULTURE, BLOOD: No growth 5 days Normal [facility] Comment on above: Performed By: #### 6 00-7 ####[facility] [id number] [place] [address] [place] CBC W Auto Differential pane l (Bld)on 01-15-2023 Basophils (Bld) [#/Vol] 0.09 10*3/uL Normal <0.11 [facility] Comment on above: Order Comment: Speci men Type: BLOOD SPECIMENOrdering Facility: [facility] Address: [address] [place] [address] Performed By: #### 5 7021-8 ####[facility] LABORATORYCLIA [id number] [address] [place] [facility] Basophils/100 WBC (Bld) 0.4 % Normal [facility] Comment on above: Order Comment: Speci men Type: BLOOD SPECIMENOrdering Facility: [facility] Address: [address] [place] [address] Performed By: #### 5 7021-8 ####[facility] LABORATORYCLIA [id number] [address] Differential cell count method Nom (Bld) Auto Normal [facility] Comment on above: Order Comment: Speci men Type: BLOOD SPECIMENOrdering Facility: [facility] Address: [address] [place] [address] Performed By: #### 5 7021-8 ####[facility] LABORATORYCLIA [id number] [place] [address] [place] Eosinophils (Bld) [#/Vol] 0.36 10*3/uL Normal <0.46 [facility] Comment on above: Order Comment: Speci men Type: BLOOD SPECIMENOrdering Facility: [facility] Address: [address] [place] [address] Performed By: #### 5 7021-8 ####[facility]ORATORYCLIA [id number] [address] Eosinophils/100 WBC (Bld) 1.8 % Normal [facility] Comment on above: Order Comment: Speci men Type: BLOOD SPECIMENOrdering Facility: [facility] Address: [address] [place] [address] Performed By: #### 5 7021-8 ####[facility]ORATORYCLIA [id number] [address] [place] Erythrocyte distribution width (RBC) [Ratio] 13.5 % Normal 11.5-15.0 [facility] Comment on above: Order Comment: Speci men Type: BLOOD SPECIMENOrdering Facility: [facility] Address: [address] [place] [address] Performed By: #### 5 7021-8 ####[facility] LABORATORYCLIA [id number] [address] [place] Hematocrit (Bld) [Volume fraction] 38.3 % Normal 36.0-46.0 [facility] Comment on above: Order Comment: Speci men Type: BLOOD SPECIMENOrdering Facility: [facility] Address: [address] [place] [address] Performed By: #### 5 7021-8 ####[facility] LABORATORYCLIA [id number] [address] [place] Hemoglobin (Bld) [Mass/Vol] 13.0 g/dL Normal 11.5-15.5 [facility] Comment on above: Order Comment: Speci men Type: BLOOD SPECIMENOrdering Facility: [facility] Address: [address] [place] [address] Performed By: #### 5 7021-8 ####[facility] LABORATORYCLIA [id number] [address] [place] Immature granulocytes (Bld) [#/Vol] 0.12 10*3/uL High <0.10 [facility] Comment on above: Order Comment: Speci men Type: BLOOD SPECIMENOrdering Facility: [facility] Address: [address] [place] [address] Performed By: #### 5 7021-8 ####[facility] LABORATORYCLIA [id number] [address] [place] Immature granulocytes/100 WBC (Bld) 0.6 % Normal [facility] Comment on above: Order Comment: Speci men Type: BLOOD SPECIMENOrdering Facility: [facility] Address: [address] [place] [address] Performed By: #### 5 7021-8 ####[facility] LABORATORYCLIA [id number] [address] [place] Lymphocytes (Bld) [#/Vol] 3.09 10*3/uL Normal 1.00-4.00 [facility] Comment on above: Order Comment: Speci men Type: BLOOD SPECIMENOrdering Facility: [facility] Address: [address] [place] [address] Performed By: #### 5 7021-8 ####[facility] LABORATORYCLIA [id number] [address] Lymphocytes/100 WBC (Bld) 15.1 % Normal [facility] Comment on above: Order Comment: Speci men Type: BLOOD SPECIMENOrdering Facility: [facility] Address: [address] [place] [address] Performed By: #### 5 7021-8 ####YE LABORATORYCLIA [id number] [address] MCH (RBC) [Entitic mass] 30.8 pg Normal 26.0-34.0 [facility] Comment on above: Order Comment: Speci men Type: BLOOD SPECIMENOrdering Facility: [facility] Address: [address] [place] [address] Performed By: #### 5 7021-8 ####YE LABORATORYCLIA [id number] [address] MCHC (RBC) [Mass/Vol] 33.9 g/dL Normal 30.5-36.0 [facility] Comment on above: Order Comment: Speci men Type: BLOOD SPECIMENOrdering Facility: [facility] Address: [address] [address] Performed By: #### 5 7021-8 ####YE LABORATORYCLIA [id number] [address] MCV (RBC) [Entitic vol] 90.8 fL Normal 80.0-100.0 [facility] Comment on above: Order Comment: Speci men Type: BLOOD SPECIMENOrdering Facility: [facility] Address: [address] [address] Performed By: #### 5 7021-8 ####YE LABORATORYCLIA [id number] [place] [address] [place] Monocytes (Bld) [#/Vol] 1.27 10*3/uL High <0.87 [facility] Comment on above: Order Comment: Speci men Type: BLOOD SPECIMENOrdering Facility: [facility] Address: [address] [address] Performed By: #### 5 7021-8 ####YE LABORATORYCLIA [id number] [place] [address] [place] Monocytes/100 WBC (Bld) 6.2 % Normal [facility] Comment on above: Order Comment: Speci men Type: BLOOD SPECIMENOrdering Facility: [facility] Address: [address] [address] Performed By: #### 5 7021-8 ####YE LABORATORYCLIA [id number] [place] [address] [place] Neutrophils (Bld) [#/Vol] 15.49 10*3/uL High 1.45-7.50 [facility] Comment on above: Order Comment: Speci men Type: BLOOD SPECIMENOrdering Facility: [facility] Address: [address] [address] Performed By: #### 5 7021-8 ####YE LABORATORYCLIA [id number] [address] Neutrophils/100 WBC (Bld) 75.9 % Normal [facility] Comment on above: Order Comment: Speci men Type: BLOOD SPECIMENOrdering Facility: [facility] Address: [address] [address] Performed By: #### 5 7021-8 ####YE LABORATORYCLIA [id number] [place] [address] [place] Nucleated RBC (Bld) [#/Vol] 10*3/uL Normal <0.01 [facility] Comment on above: Order Comment: Speci men Type: BLOOD SPECIMENOrdering Facility: [facility] Address: [address] [address] Performed By: #### 5 7021-8 ####YE LABORATORYCLIA [id number] [place] [address] [place] Nucleated RBC/100 WBC (Bld) [Ratio] 0.0 /100 WBC Normal [facility] Comment on above: Order Comment: Speci men Type: BLOOD SPECIMENOrdering Facility: [facility] Address: [address] [place] [address] Performed By: #### 5 7021-8 ####YE LABORATORYCLIA [id number] [place] [address] [place] Platelet mean volume (Bld) [Entitic vol] 8.7 fL Low 9.0-12.7 [facility] Comment on above: Order Comment: Speci men Type: BLOOD SPECIMENOrdering Facility: [facility] Address: [address] [place] [address] Performed By: #### 5 7021-8 ####YE LABORATORYCLIA [id number] [address] [place] Platelets (Bld) [#/Vol] 395 10*3/uL Normal 150-400 [facility] Comment on above: Order Comment: Speci men Type: BLOOD SPECIMENOrdering Facility: [facility] Address: [address] [place] [address] Performed By: #### 5 7021-8 ####YE LABORATORYCLIA [id number] [address] [place] RBC (Bld) [#/Vol] 4.22 10*6/uL Normal 3.90-5.20 [facility] Comment on above: Order Comment: Speci men Type: BLOOD SPECIMENOrdering Facility: [facility] Address: [address] [place] [address] Performed By: #### 5 7021-8 ####YE LABORATORYCLIA [id number] [address] [place] WBC (Bld) [#/Vol] 20.42 10*3/uL High 3.70-11.00 [facility] Comment on above: Order Comment: Speci men Type: BLOOD SPECIMENOrdering Facility: [facility] Address: [address] [place], [place] [address], [place] [address] Performed By: #### 5 7021-8 ####[facility]ORYUN[facility] [id number] [place] [address] [place] CTA ABD/PELV W IVCONon 01-15 CTA ABD/PELV W IVCON * * *Final Report* * * DATE OF EXAM: Jan 15 2023 8:02PM [facility] 0466 - CTA ABD/PELV W IVCON / PROCEDURE REASON: Aortic aneurysm (AAA), post-op * * * * Physician Interpretation * * * * EXAMINATION: CTA CHEST WITHOUT AND WITH CONTRAST, WITH 3-D RECONSTRUCTIONS CTA ABDOMEN AND PELVIS WITH CONTRAST, WITH 3-D RECONSTRUCTIONS 01/15/2023 8:02 PM HISTORY: Aortic dissection suspected . Patient complains of dizziness and lightheadedness as well as diarrhea. Abdominal pain and back pain . Patient complains of dizziness and lightheadedness as well as diarrhea. Abdominal pain and back pain TECHNIQUE: Spiral CT acquisition of the chest prior to, then through the chest, abdomen and pelvis following bolus infusion of IV iodinated contrast. 3D image post-processing was performed at the request of the referring physician, on the CT scanner workstation under physician supervision. Contrast: IV: 100 mL of Omnipaque 350 Oral: None. CT Radiation dose: Integrated Dose-length product (DLP) for this visit = 3033.0 mGy*cm. CT Dose Reduction Employed: Automated exposure control(AEC) and iterative recon COMPARISON: None. RESULT: Vasculature: No thoracic aortic hematoma, aneurysm, dissection or penetrating ulcer. No central pulmonary emboli. Great vessels are unremarkable. Abdominal aorta is normal in caliber. No dissection. Patent celiac axis, SMA, MAGALIE and renal arteries. Calcification at the origin of the left renal artery. Pelvic arteries are patent. Chest: Lines, Tubes, and Devices: N/A Lungs and Pleura: Central airways are patent. No suspicious pulmonary nodules. No consolidations. No pleural effusions. No pneumothorax. Cardiomediastinal structures: Atherosclerotic calcifications in the thoracic aorta and coronary artery calcifications. Pulmonary arteries normal in caliber. No pericardial effusion. Neck base: Subcentimeter right thyroid nodule.. Thoracic lymph nodes: No lymphadenopathy. Bones and Soft tissues: No acute fracture or destructive osseous lesion. Abdomen and pelvis: Liver: 13 mm right hepatic lobe cyst Normal morphology. Biliary: No bile duct dilation. Gallbladder is unremarkable. Spleen: No mass. No splenomegaly. Pancreas: No mass or duct dilation. Adrenals: Left adrenal hyperplasia. No discrete nodule. Kidneys: No mass, calculus or hydronephrosis. Bladder is decompressed GI tract: Wall thickening of the colon from the mid transverse colon to the rectum. Somewhat featureless descending colon with submucosal fat suggesting a chronic component. No bowel obstruction. Lymph nodes: No abdominal or pelvic lymphadenopathy. Mesentery/Peritoneum: No free air or fluid collection. Retroperitoneum: No mass or hematoma. Pelvis: Calcified uterine fibroids. Somewhat tubular fluid density in the left adnexa and could represent hydrosalpinx. Partially calcified lesion in the left adnexa measuring up to 2 cm. No ascites. Bones/Soft Tissues: No acute fracture or destructive osseous lesion. - - IMPRESSION: 1. No evidence for aortic dissection or aneurysm. 2. Colonic wall thickening and edema from the transverse colon to the rectum consistent with colitis. Consider ulcerative colitis. 3. Partially calcified left adnexal lesion and possible left hydrosalpinx. Recommend nonemergent pelvic ultrasound. Clinical Nursing Coordinator: [employer] Transcribe Date/Time: Jan 15 2023 8:32P Dictated by : FRANCE DAHL MD This examination was interpreted and the report reviewed and electronically signed by: FRANCE DAHL MD on Jan 15 2023 8:49PM EST [id number] [facility] CTA CHEST (GATED) WO/W IVCON on 01-15-2023 CTA CHEST (GATED) WO/W IVCON * * *Final Report* * * DATE OF EXAM: Jan 15 2023 8:02PM [facility] 0126 - CTA CHEST (GATED) WO/W IVCON / PROCEDURE REASON: Aortic dissection suspected * * * * Physician Interpretation * * * * EXAMINATION: CTA CHEST WITHOUT AND WITH CONTRAST, WITH 3-D RECONSTRUCTIONS CTA ABDOMEN AND PELVIS WITH CONTRAST, WITH 3-D RECONSTRUCTIONS 01/15/2023 8:02 PM HISTORY: Aortic dissection suspected . Patient complains of dizziness and lightheadedness as well as diarrhea. Abdominal pain and back pain . Patient complains of dizziness and lightheadedness as well as diarrhea. Abdominal pain and back pain TECHNIQUE: Spiral CT acquisition of the chest prior to, then through the chest, abdomen and pelvis following bolus infusion of IV iodinated contrast. 3D image post-processing was performed at the request of the referring physician, on the CT scanner workstation under physician supervision. Contrast: IV: 100 mL of Omnipaque 350 Oral: None. CT Radiation dose: Integrated Dose-length product (DLP) for this visit = 3033.0 mGy*cm. CT Dose Reduction Employed: Automated exposure control(AEC) and iterative recon COMPARISON: None. RESULT: Vasculature: No thoracic aortic hematoma, aneurysm, dissection or penetrating ulcer. No central pulmonary emboli. Great vessels are unremarkable. Abdominal aorta is normal in caliber. No dissection. Patent celiac axis, SMA, MAGALIE and renal arteries. Calcification at the origin of the left renal artery. Pelvic arteries are patent. Chest: Lines, Tubes, and Devices: N/A Lungs and Pleura: Central airways are patent. No suspicious pulmonary nodules. No consolidations. No pleural effusions. No pneumothorax. Cardiomediastinal structures: Atherosclerotic calcifications in the thoracic aorta and coronary artery calcifications. Pulmonary arteries normal in caliber. No pericardial effusion. Neck base: Subcentimeter right thyroid nodule.. Thoracic lymph nodes: No lymphadenopathy. Bones and Soft tissues: No acute fracture or destructive osseous lesion. Abdomen and pelvis: Liver: 13 mm right hepatic lobe cyst Normal morphology. Biliary: No bile duct dilation. Gallbladder is unremarkable. Spleen: No mass. No splenomegaly. Pancreas: No mass or duct dilation. Adrenals: Left adrenal hyperplasia. No discrete nodule. Kidneys: No mass, calculus or hydronephrosis. Bladder is decompressed GI tract: Wall thickening of the colon from the mid transverse colon to the rectum. Somewhat featureless descending colon with submucosal fat suggesting a chronic component. No bowel obstruction. Lymph nodes: No abdominal or pelvic lymphadenopathy. Mesentery/Peritoneum: No free air or fluid collection. Retroperitoneum: No mass or hematoma. Pelvis: Calcified uterine fibroids. Somewhat tubular fluid density in the left adnexa and could represent hydrosalpinx. Partially calcified lesion in the left adnexa measuring up to 2 cm. No ascites. Bones/Soft Tissues: No acute fracture or destructive osseous lesion. - - IMPRESSION: 1. No evidence for aortic dissection or aneurysm. 2. Colonic wall thickening and edema from the transverse colon to the rectum consistent with colitis. Consider ulcerative colitis. 3. Partially calcified left adnexal lesion and possible left hydrosalpinx. Recommend nonemergent pelvic ultrasound. Clinical Nursing Coordinator: [employer] Transcribe Date/Time: Jan 15 2023 8:32P Dictated by : FRANCE DAHL MD This examination was interpreted and the report reviewed and electronically signed by: FRANCE DAHL MD on Jan 15 2023 8:49PM EST [id number] Normal [facility] Comprehensive metabolic 2000 panelon 01-15-2023 Albumin [Mass/Vol] 4.4 g/dL Normal 3.9-4.9 [facility] Comment on above: Order Comment: Speci men Type: BLOOD SPECIMEN Ordering Facility: [facility] Address: [address] [address] Performed By: #### 5 5454-3 #### [facility] CLIA [id number] [address] [place] [address] [place] ALP [Catalytic activity/Vol] 96 U/L Normal 34-123 [facility] Comment on above: Order Comment: Speci men Type: BLOOD SPECIMEN Ordering Facility: [facility] Address: [address] [address] Performed By: #### 5 5454-3 #### [facility] CLIA [id number] [address] [place] [address] [place] ALT [Catalytic activity/Vol] 8 U/L Normal 7-38 [facility] Comment on above: Order Comment: Speci men Type: BLOOD SPECIMEN Ordering Facility: [facility] Address: [address] [address] Performed By: #### 5 5454-3 #### [facility] CLIA [id number] [address] [place] [address] [place] Anion gap [Moles/Vol] 20 mmol/L High 9-18 [facility] Comment on above: Order Comment: Speci men Type: BLOOD SPECIMEN Ordering Facility: [facility] Address: [address] [address] Performed By: #### 5 5454-3 #### [facility] CLIA [id number] [address] [place] [address] [place] AST [Catalytic activity/Vol] 16 U/L Normal 13-35 [facility] Comment on above: Order Comment: Speci men Type: BLOOD SPECIMEN Ordering Facility: [facility] Address: [address] [address] Performed By: #### 5 5454-3 #### [facility] CLIA [id number] [address] [place] [address] [place] Bilirubin [Mass/Vol] mg/dL Low 0.2-1.3 [facility] Comment on above: Order Comment: Speci men Type: BLOOD SPECIMEN Ordering Facility: [facility] Address: [address] [place] [address] Performed By: #### 5 5454-3 #### [facility] CLIA [id number] [address] [place] [address] [place] Calcium [Mass/Vol] 9.7 mg/dL Normal 8.5-10.2 [facility] Comment on above: Order Comment: Speci men Type: BLOOD SPECIMEN Ordering Facility: [facility] Address: [address] [place], [place] [address] Performed By: #### 5 5454-3 #### [facility] CLIA [id number] [address] [place] [address] [place] Chloride [Moles/Vol] 99 mmol/L Normal 97-105 [facility] Comment on above: Order Comment: Speci men Type: BLOOD SPECIMEN Ordering Facility: [facility] Address: [address] [place], [place] [address] Performed By: #### 5 5454-3 #### [facility] CLIA [id number] [address] [place] [address] [place] CO2 [Moles/Vol] 16 mmol/L Low 22-30 [facility] Comment on above: Order Comment: Speci men Type: BLOOD SPECIMEN Ordering Facility: [facility] Address: [address] [place], [place] [address], [place] [address] Performed By: #### 5 5454-3 #### [facility] CLIA [id number] [address] [place] [address] [place] Creatinine [Mass/Vol] 3.48 mg/dL High 0.58-0.96 [facility] Comment on above: Order Comment: Abril denis Type: BLOOD SPECIMEN Ordering Facility: [facility] Address: [address] [address] Performed By: #### 5 5454-3 #### [facility] CLIA [id number] [facility] [place] [address] [place] ESTIMATED GLOMERULAR FILTRATION RATE 15 mL/min/1.73m??? Low >=60 [facility] Comment on above: Order Comment: Abril denis Type: BLOOD SPECIMEN Ordering Facility: [facility] Address: [address] [place] [address] Result Comment: Christie mated Glomerular Filtration Rate (eGFR) is calculated using the 2020 CKD-EPI creatinine equation. This equation utilizes serum creatinine, sex, and age as parameters. The creatinine assay has traceable calibration to isotope dilution-mass spectrometry. Refer to KDIGO guidelines for clinical interpretation. In patients with unstable renal function, e.g. those with acute kidney injury, the eGFR may not accurately reflect actual GFR. Performed By: #### 5 5454-3 #### [facility] CLIA [id number] [address] [place] [address] [place] Glucose [Mass/Vol] 125 mg/dL High 74-99 [facility] Comment on above: Order Comment: Abril men Type: BLOOD SPECIMEN Ordering Facility: [facility] Address: [place] [address] Result Comment: The [place] [employer] (ADA) provides guidance for cutoff values for fasting glucose and random glucose. The ADA defines fasting as no caloric intake for at least 8 hours. Fasting plasma glucose results between 100 to 125 mg/dL indicate increased risk for diabetes (prediabetes). Fasting plasma glucose results greater than or equal to 126 mg/dL meet the criteria for diagnosis of diabetes. In the absence of unequivocal hyperglycemia, results should be confirmed by repeat testing. In a patient with classic symptoms of hyperglycemia or hyperglycemic crisis, random plasma glucose results greater than or equal to 200 mg/dL meet the criteria for diagnosis of diabetes. Reference: Standards of Medical Care in Diabetes 2016, [place] [employer]. Diabetes Care. 2016.39(Suppl 1). Performed By: #### 5 5454-3 #### [facility] CLIA [id number] [address] [place] [address] [place] Potassium [Moles/Vol] 4.2 mmol/L Normal 3.7-5.1 [facility] Comment on above: Order Comment: Abril denis Type: BLOOD SPECIMEN Ordering Facility: [facility] Address: [address] [place] [address] Performed By: #### 5 5454-3 #### [facility] CLIA [id number] [address] [place] [address] [place] Protein [Mass/Vol] 7.9 g/dL Normal 6.3-8.0 [facility] Comment on above: Order Comment: Abril denis Type: BLOOD SPECIMEN Ordering Facility: [facility] Address: [address] [place] [address] Performed By: #### 5 5454-3 #### [facility] CLIA [id number] [address] [place] [address] [place] Sodium [Moles/Vol] 135 mmol/L Low 136-144 [facility] Comment on above: Order Comment: Cherriei cira Type: BLOOD SPECIMEN Ordering Facility: [facility] Address: [address] [place] [address] Performed By: #### 5 5454-3 #### [facility] CLIA [id number] [address] [place] [address] [place] Urea nitrogen [Mass/Vol] 38 mg/dL High 7-21 [facility] Comment on above: Order Comment: Cherriei men Type: BLOOD SPECIMEN Ordering Facility: [facility] Address: [address] [place] [address] Performed By: #### 5 5454-3 #### [facility] CLIA [id number] [address] [facility] [address] [place] ECG COMPLETEon 01-15-2023 ECG COMPLETE Ventricular Rate : 7 4 BPM Atrial Rate : 74 BPM P-R Interval : 148 ms QRS Duration : 90 ms Q-T Interval : 398 ms QTC Calculation(Bazett) : 441 ms Calculated P [place] : 31 degrees Calculated R [place] : -17 degrees Calculated T [place] : 10 degrees NORMAL SINUS RHYTHM MINIMAL VOLTAGE CRITERIA FOR LVH, MAY BE NORMAL VARIANT ( R in aVL ) BORDERLINE ECG no stemi Confirmed by MD LOPEZ STEVEN ([id number]), website/blog editor BOBBI MUIR ([id number]) on 01/16/2023 12:31:15 PM NAME : GABBY SPENCE PID : [id number] : 1965 Gender : Female Race : ORD : [id number] Procedure Date : Jan 15 2023 19:25:20 Edit Date : Jan 16 2023 12:31:20 Diagnosis: NORMAL SINUS RHYTHM MINIMAL VOLTAGE CRITERIA FOR LVH, MAY BE NORMAL VARIANT ( R in aVL ) BORDERLINE ECG no stemi Confirmed by MD LOPEZ STEVEN ([id number]), website/blog editor BOBBI MUIR (1942) on 01/16/2023 12:31:15 PM Test Reason : Arrhythmia Location : 1 : ER ED Overread By : MD LOPEZ STEVEN Edited By : BOBBI MUIR Referred By : , Acquired by : joan [facility] ED NOTEon 01-15-2023 ED NOTE HNO ID: [id number] Author: Alondra Carranza, MILO Service: Nursing Author Type: Registered Nurse Type: ED Notes Filed: 01/15/2023 6:42 PM Note Text: Pt presents to ED with c/o hypotension sent from [facility]. Pt was 70/40 in their ED and urged to come here. Pt is SOB, nauseous, dizzy and overall not feeling well. [facility] ED PROV NOTEon 01-15-2023 ED PROV NOTE HNO ID: [id number] Author: Jared Lopez MD Service: Emergency Medicine Author Type: Physician Type: ED Provider Notes Filed: 01/15/2023 9:43 PM Note Text: ED Provider Note Patient Name: Gabby Spence : 1965 SERVICE DATE: 01/15/23 History Patient presents with: Hypotension This is a 57-year-old female who came into the emergency department with complaints of days of diarrhea. Has not been able to take good p.o. fluids. Also had crampy lower abdominal pain and back pain. Started at [facility] and drove to [place] emergency department for evaluation denied any fever chills chest pain or shortness of breath here for further evaluation of diarrhea weakness back and abdominal pain PAST MEDICAL HISTORY Diagnosis Date Anxiety Back pain Diastolic dysfunction 10/2017 EF 65%, stage 1 diastolic dysfunction per Echo History of colonoscopy 02/25/2008 Done at [facility] [place]/Dr. Vo Ulcerative colitis, unspecified Ulcerative colitis PAST SURGICAL HISTORY Procedure Laterality Date COLONOSCOPY Every 3 years, Dr White in [place] COLONOSCOPY 08/13/2017 EGD, Dr. White, Normal COLONOSCOPY FLX DX W/COLLJ SPEC WHEN PFRMD 08/19/[address] White - info scanned FAMILY HISTORY Problem Relation Age of Onset Cancer Mother Cancer Father Heart disease Brother 3 brothers - 52years old 53 yesr old and 54 years old Social History Tobacco Use Smoking status: Every Day Types: Cigarettes Start date: 10/27/1981 Smokeless tobacco: Never Tobacco comments: Cut back to 9-10 cigarettes per day Vaping Use Vaping Use: Never used Substance and Sexual Activity Alcohol use: Yes Comment: once in a while Drug use: No Sexual activity: Not on file ALLERGIES Allergen Reactions Wellbutrin [Bupropi* GI Upset Nausea and GI upset Azulfidine [Sulfasa* Hives Review of Systems Constitutional: Positive for fatigue. Gastrointestinal: Positive for abdominal pain and diarrhea. Musculoskeletal: Positive for back pain. Neurological: Positive for weakness. All other systems reviewed and are negative. Physical Exam Vitals [01/15/23 1836] BP Pulse Temp Temp src Resp SpO2 Weight Height (!) 70/42 89 (!) 35.8 ?C (96.5 ?F) Oral 16 98 % 85.3 kg (188 lb) -- Physical Exam Vitals and nursing note reviewed. Constitutional: Appearance: Normal appearance. She is obese. She is ill-appearing. HENT: Head: Normocephalic and atraumatic. Right Ear: Tympanic membrane, ear canal and external ear normal. Left Ear: Tympanic membrane, ear canal and external ear normal. Nose: Nose normal. Mouth/Throat: Mouth: Mucous membranes are moist. Eyes: Extraocular Movements: Extraocular movements intact. Conjunctiva/sclera: Conjunctivae normal. Pupils: Pupils are equal, round, and reactive to light. Cardiovascular: Rate and Rhythm: Normal rate and regular rhythm. Pulses: Normal pulses. Heart sounds: Normal heart sounds. No murmur heard. No friction rub. No gallop. Pulmonary: Effort: Pulmonary effort is normal. No respiratory distress. Breath sounds: Normal breath sounds. No wheezing, rhonchi or rales. Abdominal: General: Bowel sounds are normal. There is no distension. Palpations: Abdomen is soft. There is no mass. Tenderness: There is abdominal tenderness. There is no right CVA tenderness, left CVA tenderness, guarding or rebound. Hernia: No hernia is present. Musculoskeletal: General: No tenderness, deformity or signs of injury. Normal range of motion. Cervical back: Normal range of motion and neck supple. No rigidity. Right lower leg: No edema. Left lower leg: No edema. Lymphadenopathy: Cervical: No cervical adenopathy. Skin: General: Skin is warm and dry. Capillary Refill: Capillary refill takes less than 2 seconds. Coloration: Skin is not jaundiced. Findings: No erythema, petechiae or rash. Neurological: General: No focal deficit present. Mental Status: She is alert and oriented to person, place, and time. Mental status is at baseline. Cranial Nerves: No cranial nerve deficit. Sensory: No sensory deficit. Motor: No weakness. Deep Tendon Reflexes: Reflexes normal. Psychiatric: Mood and Affect: Mood normal. Thought Content: Thought content does not include homicidal or suicidal ideation. Diagnostic Testing ED Labs Ordered and Reviewed VENOUS BLOOD GASES - Abnormal; Notable for the following components: Result Value Ref Range pH, Venous 7.25 (*) 7.32 - 7.42 pCO2, Venous 39 (*) 42 - 55 mmHg pO2, Venous <31 (*) 35 - 45 mmHg Base Deficit, Venous -10 (*) -2 - 0 mmol/L Bicarbonate, Venous 16 (*) 24 - 28 mmol/L Oxyhemoglobin, Venous 53 (*) 60 - 85 % Carboxyhemoglobin, Venous 3.5 (*) 0.0 - 2.0 % All other components within normal limits CBC + DIFF - Abnormal; Notable for the following components: WBC 20.42 (*) 3.70 - 11.00 k/uL MPV 8.7 (*) 9.0 - 12.7 fL Abs Neut 15.49 (*) 1.45 - 7.50 k/uL Abs [place] (more content not included)... Normal [facility] ED PROV NOTE HNO ID: [id number] Author: Jared Lopez MD Service: Emergency Medicine Author Type: Physician Type: ED Provider Notes Filed: 01/15/2023 11:19 PM Note Text: ED Provider Note Patient Name: Gabby Spence : 1965 SERVICE DATE: 01/15/23 History Patient presents with: Hypotension 57-year-old female, with a history of IBS, presents to the ED with diarrhea and concern of dehydration and hypotension. The patient was evaluated at [place] primary care office today as a follow-up from her inpatient stay last week for diarrhea. She was noted to be hypotensive and they offered to call EMS but she declined and had her drive her here. On arrival she was 70/40 and then 55 systolic. She complains of dizziness, lightheadedness. She is having several episodes of diarrhea that is watery. Nonbloody or black. She vomited today that was also not bloody. She is having pain in her abdomen. History of IBS. She was admitted last week for the same with normal stool studies that I was able to review. She is unable to tolerate anything by mouth. She is not having a fever. She is noted to be 96.5 Fahrenheit in triage History provided by: Patient and spouse PAST MEDICAL HISTORY Diagnosis Date Anxiety Back pain Diastolic dysfunction 10/2017 EF 65%, stage 1 diastolic dysfunction per Echo History of colonoscopy 02/25/2008 Done at [facility]/Dr. Vo Ulcerative colitis, unspecified Ulcerative colitis PAST SURGICAL HISTORY Procedure Laterality Date COLONOSCOPY Every 3 years, Dr White in [place] COLONOSCOPY 08/13/2017 EGD, Dr. White, Normal COLONOSCOPY FLX DX W/COLLJ SPEC WHEN PFRMD 08/19/[address] White - info scanned FAMILY HISTORY Problem Relation Age of Onset Cancer Mother Cancer Father Heart disease Brother 3 brothers - 52years old 53 yesr old and 54 years old Social History Tobacco Use Smoking status: Every Day Types: Cigarettes Start date: 10/27/1981 Smokeless tobacco: Never Tobacco comments: Cut back to 9-10 cigarettes per day Vaping Use Vaping Use: Never used Substance and Sexual Activity Alcohol use: Yes Comment: once in a while Drug use: No Sexual activity: Not on file ALLERGIES Allergen Reactions Wellbutrin [Bupropi* GI Upset Nausea and GI upset Azulfidine [Sulfasa* Hives Review of Systems Constitutional: Positive for appetite change. Negative for chills and fever. HENT: Negative. Eyes: Negative for photophobia and visual disturbance. Respiratory: Negative for cough and shortness of breath. Cardiovascular: Negative for chest pain. Gastrointestinal: Positive for abdominal pain, diarrhea, nausea and vomiting. Negative for blood in stool and constipation. Genitourinary: Negative for difficulty urinating and dysuria. Musculoskeletal: Negative for back pain. Skin: Negative for rash and wound. Neurological: Positive for dizziness and weakness. Negative for light-headedness, numbness and headaches. Hematological: Negative. Psychiatric/Behavioral: Negative. Physical Exam Vitals [01/15/23 1836] BP Pulse Temp Temp src Resp SpO2 Weight Height (!) 70/42 89 (!) 35.8 ?C (96.5 ?F) Oral 16 98 % 85.3 kg (188 lb) -- Physical Exam Vitals and nursing note reviewed. Constitutional: General: She is not in acute distress. Appearance: She is ill-appearing (appears to not feel well however non toxic). She is not toxic-appearing. HENT: Head: Normocephalic and atraumatic. Nose: Nose normal. Mouth/Throat: Mouth: Mucous membranes are dry. Eyes: Extraocular Movements: Extraocular movements intact. Conjunctiva/sclera: Conjunctivae normal. Pupils: Pupils are equal, round, and reactive to light. Cardiovascular: Rate and Rhythm: Normal rate and regular rhythm. Pulmonary: Effort: Pulmonary effort is normal. No respiratory distress. Breath sounds: Normal breath sounds. No wheezing. Abdominal: General: There is no distension. Palpations: Abdomen is soft. Tenderness: There is abdominal tenderness (diffuse, soft). There is no guarding. Musculoskeletal: General: Normal range of motion. Cervical back: Normal range of motion and neck supple. No rigidity. Skin: General: Skin is warm. Neurological: General: No focal deficit present. Mental Status: She is alert and oriented to person, place, and time. Cranial Nerves: No cranial nerve deficit. Psychiatric: Mood and Affect: Mood normal. Diagnostic Testing ED Labs Ordered and Reviewed - No data to display Procedures ED Course / Clinical Impression ED Course as of 01/15/232317 Jared Lopez's Documentation FriJan 15, 20232132 BP: 102/58 Clinical Impressions as of 01/15/232317 Sepsis, due to unspecified organism, unspecified whether acute organ dysfunction present (HCC) BRIJESH (acute kidney injury) (HCC) Hypotension, unspecified hypotension type COVID-19 test performed per [facility] policy for suspected CO (more content not included)... Normal [facility] FLUABV+SARS-CoV-2+RSV Pnl Re sp TIFFANY+probeon 01-15-2023 FLUABV+SARS-CoV-2+RSV Pnl Resp TIFFANY+probe COVID 19 RESULT: Not detected The method used is RT-PCR or an equivalent NAAT method. Reference Range(the expected result in uninfected individuals): Not detected INFLUENZA A PCR: Not detected INFLUENZA B PCR: Not detected RSV PCR: Not detected Normal [facility] Comment on above: Performed By: #### 9 5941-1 ####[facility] LABORATORYCLIA [id number] [place] [address] [place] Gas and Carbon monoxide pane l (BldV)on 01-15-2023 BASE DEFICIT, VENOUS -10 mmol/L Low -2-0 [facility] Comment on above: Order Comment: Speci men Type: BLOOD SPECIMEN Ordering Facility: [facility] Address: [address] [place] [id number] Performed By: #### 5 5454-3 #### [facility] CLIA [id number] [address] [facility] [id number] [place] [address] [place] Carboxyhemoglobin (BldV) [Mass fraction] 3.5 % High 0.0-2.0 [facility] Comment on above: Order Comment: Speci men Type: BLOOD SPECIMEN Ordering Facility: [facility] Address: [address] [place] [address] Result Comment: Carb oxyhemoglobin Reference Range for Smokers: 2.0-8.0% Performed By: #### 5 5454-3 #### [facility] CLIA [id number] [address] [place] [address] [place] CO2 (BldV) [Partial pressure] 39 mm[Hg] Low 42-55 [facility] Comment on above: Order Comment: Speci men Type: BLOOD SPECIMEN Ordering Facility: [facility] Address: [address] [place] [address] Performed By: #### 5 5454-3 #### [facility] CLIA [id number] [address] [place] [address] [place] CO2 adjusted to patient's actual temperature (BldV) [Partial pressure] Normal [facility] Comment on above: Order Comment: Speci men Type: BLOOD SPECIMEN Ordering Facility: [facility] Address: [address] [place] [address] Performed By: #### 5 5454-3 #### [facility] CLIA [id number] [address] [place] [address] [place] HCO3 (Bld) [Moles/Vol] 16 mmol/L Low 24-28 [facility] Comment on above: Order Comment: Speci men Type: BLOOD SPECIMEN Ordering Facility: [facility] Address: [address] [place] [address] Performed By: #### 5 5454-3 #### [facility] CLIA [id number] [address] [place] [address] [place] Hemoglobin (Bld) [Mass/Vol] 11.8 g/dL Normal 11.5-15.5 [facility] Comment on above: Order Comment: Speci men Type: BLOOD SPECIMEN Ordering Facility: [facility] Address: [address] [place], [place] [address], [place] Performed By: #### 5 5454-3 #### [facility] CLIA [id number] [address] [place] [address] [place] Lactate [Moles/Vol] 1.0 mmol/L Normal 0.5-2.2 [facility] Comment on above: Order Comment: Speci men Type: BLOOD SPECIMEN Ordering Facility: [facility] Address: [address] [place] [address] Performed By: #### 5 5454-3 #### [facility] CLIA [id number] [address] [place] [address] [place] Methemoglobin (Bld) [Mass fraction] 1.2 % Normal 0.0-1.5 [facility] Comment on above: Order Comment: Speci men Type: BLOOD SPECIMEN Ordering Facility: [facility] Address: [address] Performed By: #### 5 5454-3 #### [facility] CLIA [id number] [address] [place] [address] [place] O2 THERAPY RA=Room Air Normal [facility] Comment on above: Order Comment: Speci men Type: BLOOD SPECIMEN Ordering Facility: [facility] Address: [address] [place] [address] Performed By: #### 5 5454-3 #### [facility] CLIA [id number] [address] [place] [address] [place] Oxygen (BldV) [Partial pressure] mm[Hg] Low 35-45 [facility] Comment on above: Order Comment: Speci men Type: BLOOD SPECIMEN Ordering Facility: [facility] Address: [address] [place] [address] Performed By: #### 5 5454-3 #### [facility] CLIA [id number] [address] [place] [address] [place] Oxygen adjusted to patient's actual temperature (BldV) [Partial pressure] Normal [facility] Comment on above: Order Comment: Speci men Type: BLOOD SPECIMEN Ordering Facility: [facility] Address: [address] Performed By: #### 5 5454-3 #### [facility] CLIA [id number] [address] [place] [address] [place] Oxyhemoglobin (BldV) [Mass fraction] 53 % Low 60-85 [facility] Comment on above: Order Comment: Speci men Type: BLOOD SPECIMEN Ordering Facility: [facility] Address: [address] Performed By: #### 5 5454-3 #### [facility] CLIA [id number] [address] [place] [address] [place] pH (BldV) 7.25 [pH] Low 7.32-7.42 [facility] Comment on above: Order Comment: Speci men Type: BLOOD SPECIMEN Ordering Facility: [facility] Address: [address] Performed By: #### 5 5454-3 #### [facility] CLIA [id number] [address] [place] [address] [place] pH adjusted to patient's actual temperature (BldV) Normal [facility] Comment on above: Order Comment: Speci men Type: BLOOD SPECIMEN Ordering Facility: [facility] Address: [address] Performed By: #### 5 5454-3 #### [facility] CLIA [id number] [address] [place] [address] [place] Potassium [Moles/Vol] 3.8 mmol/L Normal 3.5-5.0 [facility] Comment on above: Order Comment: Speci men Type: BLOOD SPECIMEN Ordering Facility: [facility] Address: [address] Performed By: #### 5 5454-3 #### [facility] CLIA [id number] [address] [place] [id number] [place] Lipase SerPl-cCncon 01-16-20 23 Lipase [Catalytic activity/Vol] 31 U/L Normal 16-61 [facility] Comment on above: Order Comment: Abril denis Type: BLOOD SPECIMEN Ordering Facility: [facility] Address: [address] [place] [address] Performed By: #### 5 5454-3 #### [facility] CLIA [id number] [address] [place] PT panel Coag (PPP)on 2022 INR Coag (PPP) [Relative time] 1.0 {INR} Normal 0.9-1.3 [facility] Comment on above: Order Comment: Abril denis Type: BLOOD SPECIMENOrdering Facility: [facility] Address: [address] [place] [address] Result Comment: Belinda min K Antagonist (VKA) Therapeutic Range: INR 2 to 3 (Target INR of 2.5) Note: For patients treated with VKA drugs, such as warfarin, the [employer] 2012 Guideline recommends a therapeutic INR range of 2 to 3 (target INR of 2.5). This recommendation includes high-risk patients with antiphospholipid syndrome with previous arterial or venous thromboembolism, current-generation mechanical or bioprosthetic aortic heart valve replacement. Note: Patients with mechanical aortic valve replacement and additional risk factors for thromboembolic events (atrial fibrillation, previous thromboembolism, LV dysfunction, hypercoagulable conditions) or an older generation mechanical AVR (i.e., ball in-Cage) or any mechanical MVR should have a INR therapeutic range of 2.5 to 3.5 (target INR of 3). Aniyah GH, et al. Chest 2012, 141:7S-47S Cruz RA et al. JAC 2017, 70: 252-289 Performed By: #### 3 4528-0, 01165-1 ####[facility] LABORATORYCLIA [id number] [place], [place] [id number] [place] [address] [place] PT Coag (PPP) [Time] 9.8 s Normal 9.7-13.0 [facility] Comment on above: Order Comment: Speci men Type: BLOOD SPECIMENOrdering Facility: [facility] Address: [place] [facility] [address] Performed By: #### 3 4528-0, 43813-1 ####YE LABORATORYCLIA [id number] [place] [id number] [place] aPTT PPPon 01-15-2023 aPTT Coag (PPP) [Time] 30.6 s Normal 23.0-32.4 [facility] Comment on above: Order Comment: Speci men Type: BLOOD SPECIMENOrdering Facility: [facility] Address: [place] [address] Performed By: #### 3 4528-0, 88306-4 ####[facility]ICK[facility] LABORATORYCLIA [id number] [address] [place] [facility] Absolute lymphocyte countOrd ered By: Dr. Hinojosa on 01-11-2023 Lymphocytes Auto (Unsp spec) [#/Vol] 2.58 10*3/uL 0.83-4.51 [facility] Basophil percentageOrdered B y: Dr. Hinojosa on 01-11-2023 Basophils/100 WBC (Bld) 0.6 % 0-1 [facility] Chloride [Moles/Vol] 116 mmol/L 98-107 [facility] Eosinophils/100 WBC (Bld) 4.2 % 0-5 [facility] Glucose [Mass/Vol] 103 mg/dL 74-106 [facility] Comment on above: Fasting Glucose resu lt from 100 to 125 mg/dL suggests IMPAIRED HOMEOSTASIS per A.D.A. criteria. Neutrophils (Bld) [#/Vol] 5.9 10*3/uL 2.0-7.7 [facility] Neutrophils/100 WBC (Bld) 61.7 % 47-70 [facility] Potassium [Moles/Vol] 4.2 mmol/L 3.5-5.1 [facility] Sodium [Moles/Vol] 146 mmol/L 136-145 [facility] WBC (Bld) [#/Vol] 9.6 10*3/uL 4.4-11.0 [facility] Blood erythrocytes count (nu mber/volume)Ordered By: Dr. Hinojosa on 01-11-2023 RBC (Bld) [#/Vol] 3.57 10*6/uL 4.2-5.4 [facility] Blood hemoglobin measurement (mass/volume)Ordered By: Dr. Hinojosa on 01-11-2023 Hemoglobin (Bld) [Mass/Vol] 10.8 g/dL 12.0-15.0 [facility] Blood lymphocytes/100 leukoc ytesOrdered By: Dr. Hinojosa on 01-11-2023 Lymphocytes/100 WBC (Bld) 26.8 % 19-41 [facility] Blood monocytes/100 leukocyt esOrdered By: Dr. Hinojosa on 01-11-2023 Monocytes/100 WBC (Bld) 6.3 % 0-10 [facility] Blood platelet mean volumeOr dered By: Dr. Hinojosa on 01-11-2023 Platelet mean volume (Bld) [Entitic vol] 8.8 fL 6.2-12.0 [facility] Determination of erythrocyte mean corpuscular volume (MCV)Ordered By: Dr. Hinojosa on 01-11-2023 MCV (RBC) [Entitic vol] 94.4 fL 81-99 [facility] EP PanelOrdered By: Dr. Dalia bradshaw on 01-11-2023 Gastrointestinal pathogens panel TIFFANY+probe (Stl) [facility] Hematocrit Auto (Bld) [Volum e fraction]Ordered By: Dr. Hinojosa on 01-11-2023 Hematocrit (Bld) [Volume fraction] 33.7 % 37-47 [facility] Laboratory - Chemistry and C hemistry - challengeOrdered By: Dr. Hinojosa on 01-11-2023 CO2 [Moles/Vol] 22.0 mmol/L 21.0-32.0 [facility] Urea nitrogen/Creatinine [Mass ratio] 30.2 mg/mg 10-20 [facility] Laboratory - Hematology and Cell countsOrdered By: Dr. Hinojosa on 01-11-2023 Erythrocyte distribution width (RBC) [Entitic vol] 45.3 fL 35.1-43.9 [facility] Erythrocyte distribution width (RBC) [Ratio] 13.2 % 11.6-14.6 [facility] Immature granulocytes/100 WBC (Bld) 0.400 % 0.0-0.9 [facility] Comment on above: IG% - Immature Granu locytes (promyelocytes, myelocytes and metamyelocytes) > 1% indicates that a LEFT SHIFT is Present. MCH (RBC) [Entitic mass] 30.3 pg 27.0-32.0 [facility] Nucleated RBC/100 WBC (Bld) [Ratio] 0 % 0-5 [facility] MCHC Auto (RBC) [Mass/Vol]Or dered By: Dr. Hinojosa on 01-11-2023 MCHC (RBC) [Mass/Vol] 32.0 g/dL 32-36 [facility] No Panel InformationOrdered By: Dr. Hinojosa on 01-11-2023 Estimated Creatinine Clearance Calc 100.60 ml/min [facility] Estimated GFR (MDRD) Amer 133 mL/min >60 [facility] Comment on above: GFR Calc Estimated GFR (MDRD) Non-Af Amer 110 mL/min >60 [facility] Comment on above: Non- GFR Calc Platelets bldOrdered By: Dr. Hinojosa on 01-11-2023 Platelets (Bld) [#/Vol] 282 10*3/uL 150-450 [facility] Serum or plasma calcium paulino urement (mass/volume)Ordered By: Dr. Hinojosa on 01-11-2023 Calcium [Mass/Vol] 9.2 mg/dL 8.5-10.1 [facility] Serum or plasma creatinine m easurement (mass/volume)Ordered By: Dr. Hinojosa on 01-11-2023 Creatinine [Mass/Vol] 0.60 mg/dL 0.55-1.02 [facility] Comment on above: The validity of the calculated GFR & GFRAA in patients over 70 years has not been determined. Clinical correlation is essential. Serum or plasma urea nitroge n measurement (mass/volume)Ordered By: Dr. Hinojosa on 01-11-2023 Urea nitrogen [Mass/Vol] 18 mg/dL 05-13 [facility] Thin prep Papanicolaou smear with manual screeningOrdered By: Dr. Hinojosa on 01-11-2023 Thin prep Papanicolaou smear with manual screening 8 5-15 [facility] Basophil percentageOrdered B y: Dr. Denny on 01-09-2023 Basophil percentage 0 SEEN /hpf 0-5 [facility] Bilirubin Test strip Ql (U)O rdered By: Dr. Denny on 01-09-2023 Bilirubin Ql (U) Negative Negative [facility] Ketones Test strip Ql (U)Ord ered By: Dr. Denny on 01-09-2023 Ketones Ql (U) Negative Negative [facility] Mucus LM Ql (Urine sed)Order ed By: Dr. Denny on 01-09-2023 Mucus Ql (Urine sed) 0 SEEN /hpf [facility] Nitrite Test strip Ql (U)Ord ered By: Dr. Denny on 01-09-2023 Nitrite Ql (U) Negative Negative [facility] Protein Test strip Ql (U)Ord ered By: Dr. Denny on 01-09-2023 Protein Ql (U) 15 mg/dl Negative [facility] Squamous epithelial cells de tection in urine sediment by light microscopyOrdered By: Dr. Denny on 01-09-2023 Epithelial cells.squamous LM Ql (Urine sed) 0-5 SEEN /hpf 5-10 [facility] Urine blood detectionOrdered By: Dr. Denny on 01-09-2023 RBC Ql (U) 10 /ul Negative [facility] RBC Ql (U) 0-5 SEEN /hpf 0-5 [facility] Urine clarityOrdered By: Dr. Denny on 01-09-2023 Clarity (U) Clear Clear [facility] Urine color determinationOrd ered By: Dr. Denny on 01-09-2023 Color (U) Yellow Yellow [facility] Urine glucose detectionOrder ed By: Dr. Denny on 01-09-2023 Glucose Ql (U) Normal mg/dl Normal [facility] Urine leukocyte esterase det ection by dipstickOrdered By: Dr. Denny on 01-09-2023 Leukocyte esterase Test strip Ql (U) Negative Negative [facility] Urine pHOrdered By: Dr. Laura larose on 01-09-2023 pH (U) 5.0 [pH] 5.0 - 8.0 [facility] Urine sediment bacteria coun t by microscopy (number/high power field)Ordered By: Dr. Denny on 01-09-2023 Bacteria LM.HPF (Urine sed) [#/Area] RARE /hpf None Seen [facility] Urine specific gravity measu rementOrdered By: Dr. Denny on 01-09-2023 Specific gravity (U) [Rel density] 1.015 1.002-1.03 0 [facility] Urobilinogen Auto test strip Ql (U)Ordered By: Dr. Denny on 01-09-2023 Urobilinogen Ql (U) Normal mg/dl Normal [facility] Gastrointestinal pathogens D NA and RNA panel TIFFANY+non-probe (Stl)Ordered By: Doris Ch on 01-01-2023 Adenovirus 40+41 DNA TIFFANY+non-probe Ql (Stl) Not detected Not Detected [facility] Astrovirus subtypes 1-8 RNA TIFFANY+non-probe Ql (Stl) Not detected Not Detected [facility] C. cayetanensis DNA TIFFANY+non-probe Ql (Stl) Not detected Not Detected [facility] C. coli+jejuni+upsaliensi s DNA TIFFANY+non-probe Ql (Stl) Not detected Not Detected [facility] C. difficile toxin A+B tcdA+tcdB genes TIFFANY+non-probe Ql (Stl) Not detected Not Detected [facility] Cryptosporidium sp DNA TIFFANY+non-probe Ql (Stl) Not detected Not Detected [facility] E. coli enteroaggregative Chad plasmid aggR+aatA genes TIFFANY+non-probe Ql (Stl) Not detected Not Detected [facility] E. coli enteropathogenic eae gene TIFFANY+non-probe Ql (Stl) Not detected Not Detected [facility] E. coli enterotoxigenic ltA+st1a+st1b genes TIFFANY+non-probe Ql (Stl) Not detected Not Detected [facility] E. coli stx1+stx2 genes TIFFANY+non-probe Ql (Stl) Not detected Not Detected [facility] E. histolytica DNA TIFFANY+non-probe Ql (Stl) Not detected Not Detected [facility] G. lamblia DNA TIFFANY+non-probe Ql (Stl) Not detected Not Detected [facility] Interpretation and review of laboratory results Normal [facility] Norovirus genogroup I+II RNA TIFFANY+non-probe Ql (Stl) Not detected Not Detected [facility] P. shigelloides DNA TIFFANY+non-probe Ql (Stl) Not detected Not Detected [facility] Rotavirus A RNA TIFFANY+non-probe Ql (Stl) Not detected Not Detected [facility] S. enterica+bongori DNA TIFFANY+non-probe Ql (Stl) Not detected Not Detected [facility] Sapovirus genogroups I+II+IV+V RNA TIFFANY+non-probe Ql (Stl) Not detected Not Detected [facility] Shigella species+EIEC invasion plasmid antigen H ipaH gene TIFFANY+non-probe Ql (Stl) Not detected Not Detected [facility] V. cholerae DNA TIFFANY+non-probe Ql (Stl) Not detected Not Detected [facility] V. cholerae+parahaemolyti cus+vulnificus DNA TIFFANY+non-probe Ql (Stl) Not detected Not Detected [facility] Y. enterocolitica DNA TIFFANY+non-probe Ql (Stl) Not detected Not Detected [facility] Results of PCR testi ng for stool pathogens must be taken into clinical context when making treatment decisions. Most gastrointestinal infections due to common bacterial and viral causes are self-limited in nature and do not require antimicrobial therapy. The use of antimicrobial therapy must be carefully weighed against unintended and potentially harmful consequences. The role of antimicrobial therapy depends on the implicated pathogen. In general, antimicrobial agents are only used to treat parasitic infections as well as select bacterial infections. [facility] Tissue Transglutaminase, IgA on 12-25-2022 Interpretation and review of laboratory results Normal [facility] Tissue Transglutaminase, IgA [facility] Comment on above: Reference Ranges: <20 CU Negative 20-30 CU Weak Positive >30 CU Positive The following results were obtained with the [employer] QUANTA Flash h-tTG IgA chemiluminescent immunoassay. Values obtained with different manufacturers' assay methods may not be used interchangeably. [facility] XR Lumbar Spine 2-3 Views (S tandard)on 12-25-2022 Rqtv-pb-iehqkfdj degenerative changes of the lower lumbar spine. No acute osseous abnormality. [facility]/ Workstation ID: [id number] GE RIS EXAMINATION: XR LUMBAR SPINE 2-3 VIEWS (STANDARD) 12/24/2022 4:56 pm HISTORY: ORDERING SYSTEM PROVIDED HISTORY: back pain thoracic and lumbar , please neela, TECHNOLOGIST PROVIDED HISTORY: Illness/Other Reason for exam: back pain Cancer History: n Surgery, RadiationHistory: n Encounter Type: Initial Additional signs and symptoms: radiates to left leg ORDERING SYSTEM PROVIDED DIAGNOSIS CODES: M54.9 Back pain, unspecified back location, unspecified back pain laterality, unspecified chronicity COMPARISON: None FINDINGS: Mineralization is within normal limits. Lumbar spine is in anatomic alignment with preservation of vertebral body heights and disc spaces. Sacroiliac joint spaces are unremarkable. There is sfxo-kh-ivehgvub disc space narrowing, endplate degenerative change and facet arthropathy at L3 through S1. No spondylolisthesis or focal bony lesion. No acute fracture or dislocation. Heterogeneous calcifications are seen in the projection of the lower mid pelvis. [facility] Gina Easley MD - 12/25/2022 EXAMINATION: XR LUMBAR SPINE 2-3 VIEWS (STANDARD) 12/24/2022 4:56 pm HISTORY: ORDERING SYSTEM PROVIDED HISTORY: back pain thoracic and lumbar , please eval, TECHNOLOGIST PROVIDED HISTORY: Illness/Other Reason for exam: back pain Cancer History: n Surgery, RadiationHistory: n Encounter Type: Initial Additional signs and symptoms: radiates to left leg ORDERING SYSTEM PROVIDED DIAGNOSIS CODES: M54.9 Back pain, unspecified back location, unspecified back pain laterality, unspecified chronicity COMPARISON: None FINDINGS: Mineralization is within normal limits. Lumbar spine is in anatomic alignment with preservation of vertebral body heights and disc spaces. Sacroiliac joint spaces are unremarkable. There is vzsq-zu-mkmfcbyg disc space narrowing, endplate degenerative change and facet arthropathy at L3 through S1. No spondylolisthesis or focal bony lesion. No acute fracture or dislocation. Heterogeneous calcifications are seen in the projection of the lower mid pelvis. IMPRESSION: Fsck-il-uhwdltyu degenerative changes of the lower lumbar spine. No acute osseous abnormality. [facility] Workstation ID: [id number] [facility] XR Thoracic Spine 3 Views (S tandard)on 12-25-2022 Osteopenia with mild multilevel degenerative changes. [facility] Workstation ID: [id number] Tzee RIS EXAMINATION: XR THORACIC SPINE 3 VIEWS (STANDARD) 12/24/2022 4:54 pm HISTORY: ORDERING SYSTEM PROVIDED HISTORY: back pain please evaluate, TECHNOLOGIST PROVIDED HISTORY: Illness/Other Reason for exam: chronic back pain Cancer History: n Surgery, RadiationHistory: n Encounter Type: Initial Additional signs and symptoms: radiates to left leg ORDERING SYSTEM PROVIDED DIAGNOSIS CODES: M54.9 Back pain, unspecified back location, unspecified back pain laterality, unspecified chronicity COMPARISON: None. FINDINGS: There is slight exaggeration of the normal thoracic kyphosis. Mineralization appears to be at the lower limits of normal. No acute fracture or dislocation. No spondylolisthesis or focal bony lesion. There is mild multilevel disc space narrowing and endplate degenerative change. Gina Coates MD - 12/25/2022 EXAMINATION: XR THORACIC SPINE 3 VIEWS (STANDARD) 12/24/2022 4:54 pm HISTORY: ORDERING SYSTEM PROVIDED HISTORY: back pain please evaluate, TECHNOLOGIST PROVIDED HISTORY: Illness/Other Reason for exam: chronic back pain Cancer History: n Surgery, RadiationHistory: n Encounter Type: Initial Additional signs and symptoms: radiates to left leg ORDERING SYSTEM PROVIDED DIAGNOSIS CODES: M54.9 Back pain, unspecified back location, unspecified back pain laterality, unspecified chronicity COMPARISON: None. FINDINGS: There is slight exaggeration of the normal thoracic kyphosis. Mineralization appears to be at the lower limits of normal. No acute fracture or dislocation. No spondylolisthesis or focal bony lesion. There is mild multilevel disc space narrowing and endplate degenerative change. IMPRESSION: Osteopenia with mild multilevel degenerative changes. DM/v Workstation ID: [id number] [facility] XR Thoracic Spine 3 Views (S tandard)Ordered By: Gina Easley on 12-25-2022 [facility] Work Phone: Comprehensive metabolic 2000 panelon 12-24-2022 Albumin [Mass/Vol] 3.8 g/dL 3.2 - 5.2 g/dL [facility] ALP [Catalytic activity/Vol] 106 U/L 40 - 150 U/L [facility] ALT [Catalytic activity/Vol] 20 U/L 14 - 65 U/L [facility] Anion gap [Moles/Vol] 10 mmol/L 10 - 2 0 mmol/L [facility] AST [Catalytic activity/Vol] 20 U/L 0 - 45 U/L [facility] Bilirubin [Mass/Vol] 0.1 mg/dL 0.0 - 1 .3 mg/dL [facility] Calcium [Mass/Vol] 9.3 mg/dL 8.4 - 10. 2 mg/dL [facility] Chloride [Moles/Vol] 112 mmol/L High 98 - 10 8 mmol/L [facility] Creatinine [Mass/Vol] 0.69 mg/dL 0.40 - 1.10 mg/dL [facility] GFR/1.73 sq M.predicted CKD-EPI (S/P/Bld) [Vol rate/Area] 101 - PINF [facility] Comment on above: Estimated GFR was ca lculated using the 2020 CKD-EPI creatinine equation. Glucose [Mass/Vol] 130 mg/dL High 65 - 99 mg/dL [facility] HCO3 [Moles/Vol] 22 mmol/L 21 - 32 mmol/L [facility] Interpretation and review of laboratory results Abnormal [facility] Potassium [Moles/Vol] 3.9 mmol/L 3.5 - 5.1 mmol/L [facility] Protein [Mass/Vol] 6.9 g/dL 6.0 - 8.0 g/dL [facility] Sodium [Moles/Vol] 140 mmol/L 135 - 145 mmol/L [facility] Urea nitrogen [Mass/Vol] 12 mg/dL 8 - 25 mg/dL [facility] Urea nitrogen/Creatinine [Mass ratio] 17.4 mg/mg 10.0 - 20.0 [facility] has implemented the eGFR calculation approach that does not have a coefficient for race that conforms to the NKF-ASN Task Force Recommendations. [facility] ESR Westergren method (Bld) [Velocity]on 12-24-2022 ESR (Bld) [Velocity] 42 mm/h [facility] Interpretation and review of laboratory results Abnormal [facility] LaboratoryOrdered By: Nallely Le on 12-24-2022 Clarity Refractometry automated (U) Clear Clear [facility] - Chemistry and C hemistry - challengeon 12-24-2022 Albumin DL <= 20 mg/L (U) [Mass/Vol] 7.9 mg/dL High 0.0 - 1.8 mg/dL [facility] Albumin/Creatinine DL <= 20 mg/L (U) [Mass ratio] 43 mg/g High [facility] Creatinine (U) [Mass/Vol] 183.0 mg/dL [facility] Lipase [Catalytic activity/Vol] 88 U/L 73 - 393 U/L [facility] CRP [Mass/Vol] 9.6 mg/L NINF - 10.0 mg/L [facility] - Chemistry and C hemistry - challengeOrdered By: Nallely Le on 12-24-2022 Bilirubin Ql (U) Negative Negative [facility] th pH (U) 5.5 [pH] 5.0 - 7.0 [facility] Specific gravity (U) [Rel density] 1.028 High 1.005 - 1.025 [facility] Urobilinogen (U) [Mass/Vol] mg/dL NINF - 2.0 mg/dL [facility] - Specimen inform ationOrdered By: Nallely Le on 12-24-2022 Color (U) Yellow Colorless, Yellow [facility] - UrinalysisOrder ed By: Nallely Le on 12-24-2022 Bacteria Auto Ql (U) Rare Abnormal None Se en /hpf [facility] Calcium oxalate crystals Computer assisted (U) [#/Area] Few Abnormal None Seen /hpf [facility] Epithelial cells.squamous Auto (Urine sed) [#/Area] [facility] Glucose Auto test strip (U) [Mass/Vol] Negative Negative mg/dL [facility] Hemoglobin Auto test strip Ql (U) Small Abnormal Negative [facility] Ketones (U) [Mass/Vol] Negative Negat aleksandra mg/dL [facility] Leukocyte esterase Auto test strip Ql (U) Trace Abnormal Negative [facility] h Mucus Auto (Urine sed) [#/Area] Rare None Seen, Rare /lpf [facility] Nitrite Auto test strip Ql (U) Negative Negative [facility] Protein (U) [Mass/Vol] 30 mg/dL Abnormal Negative [facility] Comment on above: False positive resul ts may occur in urines with large amounts of hemoglobin, pH greater than 8.0, contrast medium, or disinfectants including ammonium compounds. RBC Auto (Urine sed) [#/Area] 5 High [facility] WBC Auto (Urine sed) [#/Area] 11 High [facility] Lipid 1996 panelon 3 Cholesterol [Mass/Vol] 207 mg/dL High 100 - 199 mg/dL [facility] Comment on above: National Cholesterol Education Program Guidelines: Cholesterol Desirable: <200 mg/dL Borderline High: 200-239 mg/dL High: greater than or equal to 240 mg/dL Cholesterol in HDL [Mass/Vol] 43 mg/dL 40 - 59 mg/dL [facility] Comment on above: National Cholesterol Education Program Guidelines: HDL Cholesterol Low: <40 mg/dL Near Optimal: 40-59 mg/dL High: greater than or equal to 60 mg/dL Cholesterol in LDL [Mass/Vol] 105 mg/dL 10 - 130 mg/dL [facility] Comment on above: National Cholesterol Education Program Guidelines: LDL Cholesterol Optimal: <100 mg/dL Near Optimal/above Optimal: 100-129 mg/dL Borderline High: 130-159 mg/dL High: 160-189 mg/dL Very High: greater than or equal to 190 mg/dL Cholesterol non HDL [Mass/Vol] 164 mg/dL [facility] Comment on above: National Cholesterol Education Program Guidelines: NON HDL Cholesterol Desirable: <130 mg/dL Borderline High: 130-159 mg/dL High: 160-189 mg/dL Very High: > or = 190 mg/dL Cholesterol.total/Chol esterol in HDL [Mass ratio] 4.8 {ratio} ratio [facility] Comment on above: Female Cholesterol/H DL Ratio: Average risk: 4.4 1/2 average risk: 3.3 2 x average risk: 7.1 Interpretation and review of laboratory results Abnormal [facility] Triglyceride [Mass/Vol] 295 mg/dL High 30 - 150 mg/dL [facility] Comment on above: National Cholesterol Education Program Guidelines: Triglyceride Normal: <150 mg/dL Borderline High: 150-199 mg/dL High: 200-499 mg/dL Very High: greater than or equal to 500 mg/dL [facility] No Panel Informationon 12-24 Interpretation and review of laboratory results Abnormal [facility] Interpretation and review of laboratory results Normal [facility] No Panel InformationOrdered By: Nallely Le on 12-24-2022 Interpretation and review of laboratory results Abnormal [facility] Microscopic examinat ion is performed on all urinalysis samples and only positive findings are reported. The test for blood on the chemical analytic portion of urinalysis may also be positive due to hemoglobinuria and myoglobinuria and if red blood cells are present they are quantified by microscopic examination. [facility] TSH DL <= 0.005 mIU/L Qnon 0 12-24-2022 TSH Qn 1.30 m[IU]/L [facility] XR LUMBAR SPINE 2-3 VIEWS (S TANDARD)on 12-24-2022 XR LUMBAR SPINE 2-3 VIEWS (STANDARD) EXAMINATION: XR LUMBAR SPINE 2-3 VIEWS (STANDARD) 12/24/2022 4:56 pm HISTORY: ORDERING SYSTEM PROVIDED HISTORY: back pain thoracic and lumbar , please eval, TECHNOLOGIST PROVIDED HISTORY: Illness/Other Reason for exam: back pain Cancer History: n Surgery, RadiationHistory: n Encounter Type: Initial Additional signs and symptoms: radiates to left leg ORDERING SYSTEM PROVIDED DIAGNOSIS CODES: M54.9 Back pain, unspecified back location, unspecified back pain laterality, unspecified chronicity COMPARISON: None FINDINGS: Mineralization is within normal limits. Lumbar spine is in anatomic alignment with preservation of vertebral body heights and disc spaces. Sacroiliac joint spaces are unremarkable. There is kfis-aj-fsttlsoo disc space narrowing, endplate degenerative change and facet arthropathy at L3 through S1. No spondylolisthesis or focal bony lesion. No acute fracture or dislocation. Heterogeneous calcifications are seen in the projection of the lower mid pelvis. IMPRESSION: Uaaj-vm-olsfmfzw degenerative changes of the lower lumbar spine. No acute osseous abnormality. [facility]/ Workstation ID: [id number] Dictated by: GINA EASLEY on FriDec 25, 2022 3:25:08 PM EST Transcribed by: LIZZ MART on FriDec 25, 2022 3:35:16 PM EST Finalized by: GINA EASLEY on FriDec 25, 2022 3:55:58 PM EST Normal [facility] Comment on above: Order Comment: Injur y/Trauma or Illness?:Illness/Other How long have you had these symptoms (acute/chronic)?:Chronic Reason for exam?:back pain History of cancer?:n Surgeries, chemotherapy, or radiation?:n Type of Exam?:Initial Additional signs and symptoms?:radiates to left leg XR Lumbar Spine 2-3 Views (S tandard)on 12-24-2022 Radiology Study observation (narrative) [facility] XR THORACIC SPINE 3 VIEWS (S TANDARD)on 12-24-2022 XR THORACIC SPINE 3 VIEWS (STANDARD) EXAMINATION: XR THORACIC SPINE 3 VIEWS (STANDARD) 12/24/2022 4:54 pm HISTORY: ORDERING SYSTEM PROVIDED HISTORY: back pain please evaluate, TECHNOLOGIST PROVIDED HISTORY: Illness/Other Reason for exam: chronic back pain Cancer History: n Surgery, RadiationHistory: n Encounter Type: Initial Additional signs and symptoms: radiates to left leg ORDERING SYSTEM PROVIDED DIAGNOSIS CODES: M54.9 Back pain, unspecified back location, unspecified back pain laterality, unspecified chronicity COMPARISON: None. FINDINGS: There is slight exaggeration of the normal thoracic kyphosis. Mineralization appears to be at the lower limits of normal. No acute fracture or dislocation. No spondylolisthesis or focal bony lesion. There is mild multilevel disc space narrowing and endplate degenerative change. IMPRESSION: Osteopenia with mild multilevel degenerative changes. [facility] Workstation ID: [id number] Dictated by: GINA EASLEY on FriDec 25, 2022 3:26:39 PM EST Transcribed by: DESEAN ALEXANDER on FriDec 25, 2022 3:36:11 PM EST Finalized by: GINA EASLEY on FriDec 25, 2022 3:55:53 PM EST Normal [facility] Comment on above: Order Comment: Injur y/Trauma or Illness?:Illness/Other How long have you had these symptoms (acute/chronic)?:Chronic Reason for exam?:chronic back pain History of cancer?:n Surgeries, chemotherapy, or radiation?:n Type of Exam?:Initial Additional signs and symptoms?:radiates to left leg XR Thoracic Spine 3 Views (S tandard)on 12-24-2022 Radiology Study observation (narrative) [facility] Influenza virus A and B RNA and SARS-CoV-2 (COVID-19) N gene panel TIFFANY+probe (Resp)on 10-24-2022 FLUAV RNA TIFFANY+probe Ql (Unsp spec) Negative Negative for Influenza A by RT-PCR [facility] FLUBV RNA TIFFANY+probe Ql (Unsp spec) Negative Negative for Influenza B by RT-PCR [facility] SARS-CoV-2 (COVID-19) RNA TIFFANY+probe Ql (Resp) SARS-CoV-2 (Agent of COVID-19) Not Detected by RT-PCR or equivalent method. Not Detected [facility] Colonoscopyon 07-26-2022 Colonoscopy PATIENTNAME Patient Name: Gabby Spence EXAMDATE Procedure Date: 07/26/2022 12:39 PM PATIENTID PATIENTACCOUNTNUM PATIENTDOB Date of : 1965 ADMITTYPE Admit Type: Outpatient PATIENTROOM Site: [facility] Proc 1 ETHNICITY Ethnicity: Not or RACE Race: White PROVDR Attending MD: Magdaleno White , DO ENDOPROCEDURENAME Procedure: Colonoscopy INDICATION Indications: Clinically significant diarrhea of unexplained origin PRIMARYPROVIDER Providers: Magdaleno White DO (Doctor), Annabella Ochoa, MILO (Nurse), Med Brar, RN (Nurse) EDREFPROVIDER Referring: Khadijah Curran CURRENT_MEDS Medicines: Midazolam 10 mg IV, Fentanyl 100 micrograms IV, Diphenhydramine 50 mg IV, Glucagon 1 mg IV COMPLIC Complications: No immediate complications. ENDOPROCEDURETEXT Procedure: Pre-Anesthesia Assessment: - Prior to the procedure, a History and Physical was performed, and patient medications and allergies were reviewed. The patient is competent. The risks and benefits of the procedure and the sedation options and risks were discussed with the patient. All questions were answered and informed consent was obtained. Patient identification and proposed procedure were verified by the physician in the pre-procedure area. Mental Status Examination: alert and oriented. Airway Examination: normal oropharyngeal airway and neck mobility. Respiratory Examination: clear to auscultation. CV Examination: normal. Prophylactic Antibiotics: The patient does not require prophylactic antibiotics. Prior Anticoagulants: The patient has taken no anticoagulant or antiplatelet agents. ASA Grade Assessment: II - A patient with mild systemic disease. After reviewing the risks and benefits, the patient was deemed in satisfactory condition to undergo the procedure. The anesthesia plan was to use moderate sedation / analgesia (conscious sedation). Immediately prior to administration of medications, the patient was re-assessed for adequacy to receive sedatives. The heart rate, respiratory rate, oxygen saturations, blood pressure, adequacy of pulmonary ventilation, and response to care were monitored throughout the procedure. The physical status of the patient was re-assessed after the procedure. After I obtained informed consent, the scope was passed under direct vision. Throughout the procedure, the patient's blood pressure, pulse, and oxygen saturations were monitored continuously. The pediatric colonoscope was introduced through the anus and advanced to the cecum, identified by appendiceal orifice and ileocecal valve. The colonoscopy was performed without difficulty. The patient tolerated the procedure well. The quality of the bowel preparation was good. The ileocecal valve, appendiceal orifice, and rectum were photographed. FINDING Findings: The perianal and digital rectal examinations were normal. Pertinent negatives include normal sphincter tone. A few small-mouthed diverticula were found in the sigmoid colon and descending colon. The retroflexed view of the distal rectum and anal verge was normal and showed no anal or rectal abnormalities. Biopsies for histology were taken with a cold forceps from the entire colon for evaluation of microscopic colitis. No additional abnormalities were found on retroflexion. SEDATION Moderate Sedation: Moderate (conscious) sedation was administered by the endoscopy nurse and supervised by the endoscopist. The following parameters were monitored: oxygen saturation, heart rate, blood pressure, and response to care. Total physician intraservice time was 31 minutes. EBL Estimated Blood Loss: Estimated blood loss: none. IMPRESS Impression: - Diverticulosis in the sigmoid colon and in the descending colon. - The distal rectum and anal verge are normal on retroflexion view. ENDORECOMMENDATION Recommendation: - Patient has a contact number available for emergencies. The signs and symptoms of potential delayed complications were discussed with the patient. Return to normal activities tomorrow. Written discharge instructions were provided to the patient. - Resume previous diet. - Continue present medications. - Repeat colonoscopy in 10 years for screening purposes. - Return to my office at appointment to be scheduled. CPT_CODES Procedure Code(s): --- Professional --- 72949, Colonoscopy, flexible; with biopsy, single or multiple 37414, Moderate sedation; each additional 15 minutes intraservice time G0500, Moderate sedation services provided by the same physician or other qualified health zoo caretaker performing a gastrointestinal endoscopic service that sedation supports, requiring the presence of an independent trained observer to assist in the monitoring of the patient's level of consciousness and physiological statu (more content not included)... Normal [facility] ENDOSCOPYon 07-26-2022 [facility] No Panel Informationon 07-26 [facility] [address] Work Phone: [email or web address]} [facility] [address] Work Phone: [email or web address]} [facility] 120 Work Phone: [facility] [address] 120 Work Phone: [facility] Surgical Pathology Depar tmenton 07-26-2022 [facility] Surgical Pathology Department Name GABBY SPENCE Pathologist: ARIANA BARROW Date of Procedure: 07/26/2022 Date Received: 07/26/2022 Date Reported 08/01/2022 Submitting Physician: MAGDALENO WHITE DO Location: [facility] Copy To/Referring/Attending: KHADIJAH CURRAN MD Other External # FINAL DIAGNOSIS A. DUODENUM: -- DUODENAL MUCOSA, NO PATHOLOGICAL DIAGNOSIS. B. STOMACH ANTRUM: -- GASTRIC MUCOSA WITH MILD CHRONIC GASTRITIS. C. DISTAL ESOPHAGUS: -- GASTROESOPHAGEAL JUNCTIONAL MUCOSA WITH MILD CHRONIC ESOPHAGITIS. D. RANDOM COLON BIOPSIES: -- COLONIC MUCOSA, NO PATHOLOGICAL DIAGNOSIS. E. ASCENDING COLON POLYP: -- TUBULAR ADENOMA. Electronically Signed Out By ARIANA BARROW/JONI By the signature on this report, the individual or group listed as making the Final Interpretation/Diagnosis certifies that they have reviewed this case. Diagnostic interpretation performed at [facility] [address] [facility] [place] [address] Clinical History: Physician Contact Number: [phone] Fixative (A): Formalin Fixative (B): Formalin Fixative (C): Formalin Fixative (D): Formalin Fixative (E): Formalin Clinical Diagnosis History SCREENING Specimens Submitted As: A: DUODENUM B: STOMACH ANTRUM C: DISTAL ESOPHAGUS D: RANDOM COLON BIOPSIES E: ASCENDING COLON POLYP Gross Description: A: Received in formalin, labeled with the patient's name and hospital number and duodenum, are 2 fragments of pratt, soft tissue aggregating to 0.6 x 0.3 x 0.2 cm. The specimen is submitted in toto in one cassette. LMP B: Received in formalin, labeled with the patient's name and hospital number and stomach antrum, are 2 fragments of pratt, soft tissue aggregating to 0.5 x 0.3 x 0.2 cm. The specimen is submitted in toto in one cassette. LMP C: Received in formalin, labeled with the patient's name and hospital number and distal esophagus, are multiple fragments of pratt, soft tissue aggregating to 0.8 x 0.3 x 0.2 cm. The specimen is submitted in toto in one cassette. LMP D: Received in formalin, labeled with the patient's name and hospital number and random colon BX, are multiple fragments of pratt, soft tissue aggregating to 1.4 x 0.4 x 0.2 cm. The specimen is submitted in toto in one cassette. LMP E: Received in formalin, labeled with the patient's name and hospital number and ascending colon polyp, is one fragment of pratt, soft tissue measuring 0.4 x 0.2 x 0.2 cm. The specimen is submitted in toto in one cassette. LMP lmp/07/29/2022 [facility] Department of Pathology [id number] [place] [address] Comment on above: Performed By: #### U [facility] #### [facility] Surgical Pathology Department [address] [place] [address] Upper GI endoscopyon 022 Upper GI endoscopy PATIENTNAME Patient Name: Gabby Spence EXAMDATE Procedure Date: 07/26/2022 12:19 PM PATIENTID PATIENTACCOUNTNUM PATIENTDOB Date of : 1965 ADMITTYPE Admit Type: Outpatient PATIENTROOM Site: [facility] 1 ETHNICITY Ethnicity: Not or RACE Race: White PROVDR Attending MD: Magdaleno White DO ENDOPROCEDURENAME Procedure: Upper GI endoscopy INDICATION Indications: Nausea with vomiting PRIMARYPROVIDER Providers: Magdaleno White DO (Doctor), Annabella Ochoa RN (Nurse), Med Brar RN (Nurse) EDREFPROVIDER Referring: Khadijah Curran CURRENT_MEDS Medicines: Midazolam 10 mg IV, Fentanyl 100 micrograms IV, Diphenhydramine 25 mg IV, Cetacaine spray COMPLIC Complications: No immediate complications. ENDOPROCEDURETEXT Procedure: Pre-Anesthesia Assessment: - Prior to the procedure, a History and Physical was performed, and patient medications and allergies were reviewed. The patient is competent. The risks and benefits of the procedure and the sedation options and risks were discussed with the patient. All questions were answered and informed consent was obtained. Patient identification and proposed procedure were verified by the physician in the pre-procedure area. Mental Status Examination: alert and oriented. Airway Examination: normal oropharyngeal airway and neck mobility. Respiratory Examination: clear to auscultation. CV Examination: normal. Prophylactic Antibiotics: The patient does not require prophylactic antibiotics. Prior Anticoagulants: The patient has taken no anticoagulant or antiplatelet agents. ASA Grade Assessment: II - A patient with mild systemic disease. After reviewing the risks and benefits, the patient was deemed in satisfactory condition to undergo the procedure. The anesthesia plan was to use moderate sedation / analgesia (conscious sedation). Immediately prior to administration of medications, the patient was re-assessed for adequacy to receive sedatives. The heart rate, respiratory rate, oxygen saturations, blood pressure, adequacy of pulmonary ventilation, and response to care were monitored throughout the procedure. The physical status of the patient was re-assessed after the procedure. After obtaining informed consent, the endoscope was passed under direct vision. Throughout the procedure, the patient's blood pressure, pulse, and oxygen saturations were monitored continuously. The endoscope was introduced through the mouth, and advanced to the third part of duodenum. The upper GI endoscopy was accomplished without difficulty. The patient tolerated the procedure well. FINDING Findings: The nasopharynx was normal. The Z-line was regular and was found 38 cm from the incisors. Biopsies were taken with a cold forceps for histology. Diffuse mildly erythematous mucosa without bleeding was found at the pylorus. Biopsies were taken with a cold forceps for histology. The examined duodenum was normal. Biopsies were taken with a cold forceps for histology. SEDATION Moderate Sedation: Moderate (conscious) sedation was administered by the endoscopy nurse and supervised by the endoscopist. The following parameters were monitored: oxygen saturation, heart rate, blood pressure, and response to care. Total physician intraservice time was 31 minutes. EBL Estimated Blood Loss: Estimated blood loss: none. IMPRESS Impression: - Normal nasopharynx. - Z-line regular, 38 cm from the incisors. Biopsied. - Erythematous mucosa in the pylorus. Biopsied. - Normal examined duodenum. Biopsied. ENDORECOMMENDATION Recommendation: - Patient has a contact number available for emergencies. The signs and symptoms of potential delayed complications were discussed with the patient. Return to normal activities tomorrow. Written discharge instructions were provided to the patient. - Resume previous diet. - Continue present medications. CPT_CODES Procedure Code(s): --- Professional --- 47249, Esophagogastroduodenoscopy, flexible, transoral; with biopsy, single or multiple 14906, Moderate sedation; each additional 15 minutes intraservice time G0500, Moderate sedation services provided by the same physician or other qualified health zoo caretaker performing a gastrointestinal endoscopic service that sedation supports, requiring the presence of an independent trained observer to assist in the monitoring of the patient's level of consciousness and physiological status; initial 15 minutes of intra-service time; patient age 5 years or older (additional time may be reported with 00512, as appropriate) ICD_CODES Diagnosis Code(s): --- Professional --- K31.89, Other diseases of stomach and duodenum R11.2, Nausea with vomiting, unspecified CODINGSTMT CPT copyright 2020 [employer]. All rights reser (more content not included)... Normal [facility] DXA-AXIAL SKELETONon 022 [facility] Established Visit (Gastroent erology)on 06-20-2022 Established Visit (Gastroenterology) Diagnoses/Problems Assessed Ulcerative colitis (556.9) (K51.90) Abdominal bloating (787.3) (R14.0) Nausea with vomiting (787.01) (R11.2) Orders Nausea with vomiting Start: Suprep Bowel Prep Kit 17.5-3.13-1.6 GM/177ML Oral Solution (Na Sulfate-K Sulfate-Mg Sulf); USE DIRECTED Rx By: Magdaleno White; Dispense: 0 Days ; #:1 X 2 x 177 ML Bottle; Refill: 0; For: Nausea with vomiting; SESAR = N; Sent To: [facility] C Reactive Protein, Serum; Status:Active; Requested for:[id number]; Perform:Lab Services - Lab To Draw (Blood Test); Due:18Sep2022;Ordered; For:Nausea with vomiting; Ordered By:Magdaleno White; Colonoscopy Screening; Status:Hold For - Scheduling; Requested for:20Jun2022; Perform:[facility]; Due:18Sep2022;Ordered; For:Nausea with vomiting; Ordered By:Magdaleno White; Patient competent to provide consent? : Yes-pt mentally competent to provide consent Complete Blood Count + Differential; Status:Active; Requested for:20Jun2022; Perform:Lab Services - Lab To Draw (Blood Test); Due:18Sep2022;Ordered; For:Nausea with vomiting; Ordered By:Magdaleno White; Comprehensive Metabolic Panel; Status:Active; Requested for:20Jun2022; Perform:Lab Services - Lab To Draw (Blood Test); Due:18Sep2022;Ordered; For:Nausea with vomiting; Ordered By:Magdaleno White; Endoscopy - Upper GI; Status:Hold For - Scheduling; Requested for:20Jun2022; Perform:[facility]; Due:18Sep2022;Ordered; For:Nausea with vomiting; Ordered By:Magdaleno White; Patient competent to provide consent? : Yes-pt mentally competent to provide consent Ferritin, Serum; Status:Active; Requested for:20Jun2022; Perform:Lab Services - Lab To Draw (Blood Test); Due:18Sep2022;Ordered; For:Nausea with vomiting; Ordered By:Magdaleno White; Provider Impressions Given her above bowel complaints would recommend gallbladder ultrasound endoscopy and colonoscopy. She has a cause a history of ulcerative colitis and is being treated intermittently with steroids by family doctor. At this point she is past due for surveillance. We will check routine labs and arrange EGD colonoscopy and right upper quadrant ultrasound1 1 Amended By: Magdaleno White; Jun 20 2022 3:53 PM ESTChief Complaint FUV in office today abdominal pain, bloating, nausea, vomiting, diarrhea, occasional dark stools. Pt states that they are due for a colonoscopy but also wanting an EGD done at the same time. Patient is requsting a prescription for Zofran History of Present IllnessPatient seen today with complaints of abdominal bloating nausea and intermittent vomiting and intermittent diarrhea. Has a quite a history of ulcerative colitis last colonoscopy was 5 years ago. She was seen 2 years ago for acute rectal bleeding and thrombosed hemorrhoid with fissure was noted. She saw Dr. Walsh locally and sought additional opinion with Dr. Roque and Dolores. She manage symptoms medically and is improved. She is currently taking intermittent steroids for severe diarrhea. She eats she feels bloated with most meals and feels a pain in her right shoulder region with a bandlike pressure around her entire abdomen to the point where she feels bloated. She will have vomiting episodes approximately once monthly its worse if she overeats and often vomits and undigested food. She denies any melena or gross rectal bleeding she has not had lab work in approximately an year.1 1 Amended By: Magdaleno White; Jun 20 2022 3:52 PM ESTReview of Systems Constitutional: no fever, no chills, not feeling tired and no recent weight loss. ENT: no lymphadenopathy. Cardiovascular: no shortness of breath and no chest pain. Respiratory: no cough. Gastrointestinal: as noted in HPI. Musculoskeletal: no joint swelling. Integumentary: no rashes, no skin lesions and was no jaundiced. All other systems have been reviewed and are negative for complaint. Active Problems Problems Anal fissure (565.0) (K60.2) Depression (311) (F32.A) Essential hypertension (401.9) (I10) Thrombosed external hemorrhoid (455.4) (K64.5) Ulcerative colitis (556.9) (K51.90) Past Medical History Problems Depression (311) (F32.A) Essential hypertension (401.9) (I10) Ulcerative colitis (556.9) (K51.90) Surgical History Problems History of Colonoscopy History of Esophagogastroduodenoscopy Family History Mother Family history of essential hypertension (V17.49) (Z82.49) Family history of malignant neoplasm of colon (V16.0) (Z80.0) Family history of myocardial infarction (V17.3) (Z82.49) Father Family history of essential hypertension (V17.49) (Z82.49) Family history of malignant neoplasm of colon (V16.0) (Z80.0) Family history of myocardial infarction (V17.3) (Z82.49) Social History Problems Current smoker (305.1) (F17.200) Daily caffeine consumption Denies alcohol consumption (V49.89) (Z78.9) Does not have living will No illicit drug use Allergies Medication Azulfidine Hives; Rash; Recorded B (more content not included)... Normal [facility] 2019 CORONAVIRUSon 2 SARS-CoV-2 (COVID-19) RNA TIFFANY+probe Ql (Resp) SARS-CoV-2 (Agent of COVID-19) Not Detected by RT-PCR or equivalent method. Not Detected [facility] UA DIP, URINE (POC)on 2021 BILIRUBIN UA (POCT) Small Abnormal Negative [facility] CLARITY UA (POCT) Clear [facility] COLOR UA (POCT) Dark yellow [facility] GLUCOSE UA (POCT) Negative Negative mg/dL [facility] HEMOGLOBIN/BLOOD UA (POCT) Negative Negative [facility] KETONE UA (POCT) Negative Negative mg/dL [facility] LEUKOCYTES UA (POCT) Negative Negative [facility] NITRITE UA (POCT) Negative Negative [facility] PH UA (POCT) 5.5 4.5 - 8.0 [facility] Protein Ql (U) 100 mg/dL Abnormal Negative mg/dL [facility] SPECIFIC GRAVITY UA (POCT) >=1.030 1.005 - 1.030 [facility] UROBILINOGEN UA (POCT) 0.2 E.U./dL Nissa l E.U./dL [facility] CT HEAD OR BRAIN WITHOUT CON TRASTon 02-11-2022 CT HEAD OR BRAIN WITHOUT CONTRAST EXAMINATION: CT OF THE BRAIN. HISTORY: fell hit head postive LOC COMPARISON: None. TECHNIQUE: Axial CT images were acquired from the skull base to the vertex without the use of intravenous contrast. Dose reduction techniques were achieved by using automated exposure control and/or adjustment of mA and/or kV according to patient size and/or use of iterative reconstruction technique. FINDINGS: Orbital structures are intact. Paranasal sinuses and mastoid air cells are clear. There is no evidence for intracranial hemorrhage, mass effect, or hydrocephalus. No extra-axial collection or midline shift is identified. The brain parenchyma is of normal attenuation. Ventricles and cisternal spaces are age appropriate. IMPRESSION: 1. No acute intracranial abnormality. Workstation ID: [id number] Dictated by: SRAVANTHI ROSALES on FriFeb 11, 2022 6:22:31 PM EDT Transcribed by: SRAVANTHI ROSALES on FriFeb 11, 2022 6:22:31 PM EDT Finalized by: SRAVANTHI ROSALES on FriFeb 11, 2022 6:22:31 PM EDT [facility] Comment on above: Order Comment: Injur y/Trauma or Illness?:Injury/Trauma How long have you had these symptoms (acute/chronic)?:Acute Reason for exam?:pain Type of Exam?:Initial Mechanism of injury?:fell hit head postive LOC Auto Diffon 02-03-2019 Basophils #/vol (Bld) 0.1 E3/mcL Normal 0.0-0.2 [facility] Comment on above: Order Comment: Order Added by Discern Expert. Performed By: #### 2 [id number] #### ZAKIA RemHemo [address] [place] [address] Basophils/100 WBC (Bld) 0.9 % Normal 0.0-2.0 [facility] Comment on above: Order Comment: Order Added by Discern Expert. Performed By: #### 2 [id number] #### ZAKIA RemHemo [address] [place] [address] Eos Absolute 0.2 E3/mcL Normal 0.0-0.7 [facility] Comment on above: Order Comment: Order Added by Discern Expert. Performed By: #### 2 [id number] #### ZAKIA RemHemo [address] [place] [address] Eosinophils/100 WBC (Bld) 1.8 % Normal 0.0-11.0 [facility] Comment on above: Order Comment: Order Added by Discern Expert. Performed By: #### 2 [id number] #### ZAKIA RemHemo [address] [place] [address] Lymphocytes #/vol (Bld) 3.7 E3/mcL High 1.2-3.4 [facility] Comment on above: Order Comment: Order Added by Discern Expert. Performed By: #### 2 [id number] #### ZAKIA RemHemo [address] [place] [address] Lymphocytes/100 WBC (Bld) 36.5 % Normal 20.0-55.0 [facility] Comment on above: Order Comment: Order Added by Discern Expert. Performed By: #### 2 [id number] #### ZAKIA RemHemo [address] [place] [address] [place] Absolute 0.7 E3/mcL Normal 0.0-0.7 [facility] Comment on above: Order Comment: Order Added by Discern Expert. Performed By: #### 2 [id number] #### ZAKIA RemHemo [address] [place] [address] Monocytes/100 WBC (Bld) 7.3 % Normal 0.0-10.0 [facility] Comment on above: Order Comment: Order Added by Discern Expert. Performed By: #### 2 [id number] #### ZAKIA PayanHemo [address] [place] [address] Neutro Absolute 5.5 E3/mcL Normal 1.4-6.5 [facility] Comment on above: Order Comment: Order Added by Discern Expert. Performed By: #### 2 [id number] #### ZAKIA PayanHemo [address] [place] [address] Neutro Auto 53.5 % Normal 37.0-75.0 [facility] Comment on above: Order Comment: Order Added by Discern Expert. Performed By: #### 2 [id number] #### ZAKIA PayanHemo [address] [place] [address] CBC w/ Auto Diffon 9 Erythrocyte distribution width Ratio (RBC) 13.4 % Normal 11.5-14.5 [facility] Comment on above: Performed By: #### 2 [id number] #### ZAKIA PayanHemo [address] [place] [address] Hematocrit Volume Fraction (Bld) 38.0 % Normal 36.0-48.0 [facility] Comment on above: Performed By: #### 2 [id number] #### ZAKIA PayanHemo [address] [place] [address] Hemoglobin mass conc (Bld) 13.0 g/dL Normal 12.0-16.0 [facility] Comment on above: Performed By: #### 2 [id number] #### ZAKIA RemHemo [address] [place] [address] MCH Entitic mass (RBC) 32.6 pg High 27.0-31.0 [facility] Comment on above: Performed By: #### 2 [id number] #### ZAKIA RemHemo [address] [place] [address] MCHC mass conc (RBC) 34.2 g/dL Normal 33.0-37.0 [facility] Comment on above: Performed By: #### 2 [id number] #### ZAKIA RemHemo [address] [place] [id number] MCV Entitic volume (RBC) 95.2 fL Normal 78.0-100.0 [facility] Comment on above: Performed By: #### 2 [id number] #### ZAKIALeona PayanHemo [address] [place], [place] [address] Platelet mean volume Entitic volume (Bld) 6.1 fL Low 7.4-11.0 [facility] Comment on above: Performed By: #### 2 [id number] #### ZAKIA PayanHemo [address] [place], [place] [address] Platelets #/vol (Bld) 357 E3/mcL Normal 130-400 [facility] Comment on above: Performed By: #### 2 [id number] #### ZAKIALeona PayanHemo [address] [place], [place] [address] RBC #/vol (Bld) 3.99 E6/mcL Normal 3.90-5.40 [facility] Comment on above: Performed By: #### 2 [id number] #### ZAKIALeona PayanHemo [address] [place], [place] [address] WBC #/vol (Bld) 10.3 E3/mcL Normal 3.6-11.0 [facility] Comment on above: Performed By: #### 2 [id number] #### ZAKIA PayanHemo [address] [place], [place] [address] CMPon 02-03-2019 Albumin mass conc 4.5 g/dL Normal 3.4-5.0 [facility] Comment on above: Performed By: #### 2 [id number] #### ZAKIA [employer] [address] [place], [place] [address] Albumin/Globulin mass ratio 2.0 {ratio} High 1.1-1.9 [facility] Comment on above: Performed By: #### 2 620656 #### ZAKIA [employer] [address] [place], [place] [address] Alk Phos 69 Int._Unit/L Normal 33-110 [facility] Comment on above: Performed By: #### 2 [id number] #### [facility] [employer] [address] [place], [place] [address] ALT enzyme act/vol 18 Int._Unit/L Normal 7-45 [facility] Comment on above: Performed By: #### 2 [id number] #### ZAKIA [employer] [address] [place] [address] Anion gap molar conc 13 mmol/L Normal 10-20 [facility] Comment on above: Performed By: #### 2 [id number] #### ZAKIA [employer] [address] [place] [address] AST enzyme act/vol 17 Int._Unit/L Normal 9-39 [facility] Comment on above: Performed By: #### 2 [id number] #### ZAKIA [employer] [address] [place] [address] Bili Total 0.54 mg/dL Normal 0.00-1.20 [facility] Comment on above: Performed By: #### 2 [id number] #### [facility] [employer] [address] [place] [address] Calcium mass conc 9.3 mg/dL Normal 8.6-10.3 [facility] Comment on above: Performed By: #### 2 379009 #### [facility] [employer] [address] [place] [address] Chloride molar conc 103 mmol/L Normal 98-107 [facility] Comment on above: Performed By: #### 2 [id number] #### [facility] [employer] [address] [place] [address] CO2 molar conc 25.0 mmol/L Normal 21.0-32.0 [facility] Comment on above: Performed By: #### 2 673871 #### ZAKIA [employer] [address] [place] [address] Creatinine mass conc 0.8 mg/dL Normal 0.5-1.1 [facility] Comment on above: Performed By: #### 2 646886 #### ZAKIA [employer] [address] [place] [address] Globulin mass conc (S) 2.0 g/dL Normal 2.0-4.0 [facility] Comment on above: Performed By: #### 2 818136 #### ZAKIA [employer] [address] [place] [address] Glucose mass conc 106 mg/dL High 70-99 [facility] Comment on above: Performed By: #### 2 348642 #### ZAKIA [employer] [address] [place] [address] Potassium molar conc 3.8 mmol/L Normal 3.5-5.3 [facility] Comment on above: Performed By: #### 2 [id number] #### ZAKIA [employer] [address] [place] [address] Protein mass conc 6.8 g/dL Normal 6.4-8.2 [facility] Comment on above: Performed By: #### 2 [id number] #### [facility]AK[facility] [employer] [address] [place], [place] [address] Sodium molar conc 137 mmol/L Normal 136-145 [facility] Comment on above: Performed By: #### 2 [id number] #### [facility]IA [employer] [address] [place], [place] [address] Urea nitrogen mass conc 13 mg/dL Normal 6-23 [facility] Comment on above: Performed By: #### 2 [id number] #### [facility] [employer] [address] [place] [address] Urea nitrogen/Creatinine mass ratio 16.2 ratio Normal 5.4-30.0 [facility] Comment on above: Performed By: #### 2 [id number] #### [facility] [employer] [address] [place], [place] [address] CRPon 02-03-2019 CRP mass conc 0.93 mg/dL Normal 0.00-1.00 [facility] Comment on above: Performed By: #### 2 [id number] #### [facility] [employer] [address] [place], [place] [address] OmqT0ipp 02-03-2019 Hemoglobin A1c/Hemoglobin.total mass fraction (Bld) 5.6 % Normal 4.0-6.3 [facility] Comment on above: Performed By: #### 3 [id number] ####ZAKIA Chemistry Manual [address] [place] [address] Lipid Profileon 02-03-2019 Cholesterol in HDL mass conc 61 mg/dL High 40-60 [facility] Comment on above: Performed By: #### 3 [id number] #### [facility] [employer] [address] [place] [address] Cholesterol in LDL mass conc 140 mg/dL High 0-130 [facility] Comment on above: Result Comment: <100 OPTIMAL 100-129 NEAR / ABOVE OPTIMAL 130-159 BORDERLINE HIGH 160-189 HIGH >190 VERY HIGH CALC LDL NOT VALID WHEN TRIGLYCERIDE IS >400 MG/DL Performed By: #### 3 [id number] #### ZAKIA [employer] [address] [place] [address] Cholesterol in VLDL mass conc 40 mg/dL Normal 0-40 [facility] Comment on above: Performed By: #### 3 [id number] #### ZAKIA [employer] [address] [place] [address] Cholesterol mass conc 241 mg/dL High 0-199 [facility] Comment on above: Result Comment: TOTA L CHOLEESTEROL: <200 NORMAL 200 - 239 BORDERLINE HIGH >240 HIGH Performed By: #### 3 [id number] #### ZAKIA [employer] [address] [place] [address] Triglyceride mass conc 200 mg/dL High 0-149 [facility] Comment on above: Result Comment: AGE DESIRABLE BORDERLINE HIGH 91 D - 9 Y 0 - 74 75 - 99 > 100 10 - 19 Y 0 - 89 90 - 129 > 130 20 -24 Y 0 - 114 115 - 149 > 150 > 25 0 - 149 150 - 199 200 - 499 Performed By: #### 3 [id number] #### ZAKIA [employer] [address] [place] [address] TSHon 02-03-2019 Thyrotropin Qn 1.45 mcIU/mL Normal 0.30-5.60 [facility] Comment on above: Performed By: #### 2 [id number] #### ZAKIA [employer] [address] [place] [address] Vitamin D 25 Hydroxyon 02-03 Vitamin D 25 Hydroxy 26.0 ng/mL Low 30.0-100.0 [facility] Comment on above: Performed By: #### 5 [id number] #### ZAKIA [employer] [address] [place] [address] eGFRon 02-03-2019 GFR/1.73 sq M predicted among non-blacks MDRD vol rate/area (S/P/Bld) mL/min/{1.73_m2} Normal [facility] Comment on above: Order Comment: Order added by Discern Expert. Performed By: #### 1 [id number] #### ZAKIA [employer] [address] [place] [id number] [place] Mamm Screen w/CAD if perf ormed bilaton 08-28-2018 [place] Mamm Screen w/CAD if performed bilat Exam Date/Time: 08/27/2018 15:15 EDT Reason for Exam: SCREENING;Screening Report STUDY: Digital mammography screening; 08/27/2018 3:15 pm ACCESSION NUMBER(S): [id number] ORDERING CLINICIAN: [place] Gunn INDICATION: Screening. COMPARISON: Comparison is made to prior digital mammograms dated 08/24/2015 and digitized film screen mammograms dated 10/23/2012 FINDINGS: CC and MLO 2D digital mammographic images of the bilateral breasts were obtained. The breast tissue is heterogeneously dense, which may obscure small masses. Scattered dystrophic calcifications are present bilaterally, similar to the prior study.No discrete mass or focal asymmetry is identified. No suspicious microcalcifications or foci of architectural distortion are seen. There has been no significant change. This study was interpreted with CAD. IMPRESSION: No mammographic evidence of malignancy. BI-RADS CATEGORY: Category: 1 - Negative. Recommendation: Normal Interval Follow-up, Over Age 40. Recall Interval: 12 Months. Breast Density: Heterogeneous. FINAL REPORT Dictated: 08/28/2018 10:02 am Bradley Ya MD Signed (Electronic Signature): 08/28/2018 10:02 am Signed by: Bradley Ya MD Technologist: DANAY Assessment: BI-RADS Category 1-Negative Recommendation: Normal interval follow-up Normal [facility] IGP W/hpv Rfx [id number] 08-27 Diagnosis: See Ref Lab Report Normal [facility] Comment on above: Order Comment: Thin Prep. Menopause Performed By: #### 1 [id number] #### ZAKIA Send Outs Subsection [address] [place] [id number] Large Joint Arthro/Inj: R gl enohumeral [facility] Vital Signs Date Time Vital Sign Value Performing Clinician Fransisco tapia 05-27-2025 11:42-0400 Body mass index (BMI) [Ratio] 30.83 kg/m2 Khadijah Curran MD Work Phone: [facility] 05-27-2025 11:42-0400 Body weight 89.3 kg Khadijah Curran MD Work Phone: [facility] 05-27-2025 11:42-0400 Diastolic blood pressure 70 mm[Hg] Khadijah Curran MD Work Phone: [facility] 05-27-2025 11:42-0400 Heart rate 83 /min Khadijah Curran MD Work Phone: [facility] 05-27-2025 11:42-0400 SaO2% (BldA) [Mass fraction] 95 % Khadijah Curran MD Work Phone: [facility] 05-27-2025 11:42-0400 Systolic blood pressure 118 mm[Hg] Khadijah Curran MD Work Phone: [facility] 12-31-2024 14:40-0500 Body mass index (BMI) [Ratio] 31.35 kg/m2 Khadijah Curran MD Work Phone: [facility] 12-31-2024 14:40-0500 Body weight 90.8 kg Khadijah Curran MD Work Phone: [facility] 12-31-2024 14:40-0500 Diastolic blood pressure 88 mm[Hg] Khadijah Curran MD Work Phone: [facility] 12-31-2024 14:40-0500 Heart rate 82 /min Khadijah Curran MD Work Phone: [facility] 12-31-2024 14:40-0500 Respiratory rate 16 /min Khadijah Curran MD Work Phone: [facility] 12-31-2024 14:40-0500 Systolic blood pressure 146 mm[Hg] Khadijah Curran MD Work Phone: [facility] 11-28-2023 15:19-0500 Body temperature 98.91 [degF] hKadijah Curran MD Work Phone: [facility] 11-28-2023 15:19-0500 Body weight 86.05 kg Khadijah Curran MD Work Phone: [facility] 11-28-2023 15:19-0500 Diastolic blood pressure 78 mm[Hg] Khadijah Curran MD Work Phone: [facility] 11-28-2023 15:19-0500 Heart rate 88 /min Khadijah Curran MD Work Phone: [facility] 11-28-2023 15:19-0500 Respiratory rate 16 /min Khadijah Curran MD Work Phone: [facility] 11-28-2023 15:19-0500 Systolic blood pressure 124 mm[Hg] Khadijah Curran MD Work Phone: [facility] 07-09-2023 16:18-0400 Body weight 83.92 kg Vikichiara Oreillyhof HUMAN RESOURCES LEADER.SLITTER OPERATOR Work Phone: [facility] 07-09-2023 16:18-0400 Diastolic blood pressure 88 mm[Hg] Viki Tannhof HUMAN RESOURCES LEADER.SLITTER OPERATOR Work Phone: [facility] 07-09-2023 16:18-0400 Heart rate 86 /min Viki Tannhof HUMAN RESOURCES LEADER.SLITTER OPERATOR Work Phone: [facility] 07-09-2023 16:18-0400 Respiratory rate 16 /min Vikichiara Oreillyhof HUMAN RESOURCES LEADER.SLITTER OPERATOR Work Phone: [facility] 07-09-2023 16:18-0400 SaO2% (BldA) [Mass fraction] 95 % Viki Tannhof HUMAN RESOURCES LEADER.SLITTER OPERATOR Work Phone: [facility] 07-09-2023 16:18-0400 Systolic blood pressure 130 mm[Hg] Viki Tannhof HUMAN RESOURCES LEADER.SLITTER OPERATOR Work Phone: [facility] 06-19-2023 16:02-0400 Diastolic blood pressure 85 mm[Hg] Ghulam Hall DPM Work Phone: [facility] 06-19-2023 16:02-0400 Heart rate 76 /min Ghulam Hall DPM Work Phone: [facility] 06-19-2023 16:02-0400 Systolic blood pressure 154 mm[Hg] Ghulam Hall DPM Work Phone: [facility] 06-19-2023 15:51-0400 Body temperature 98.1 [degF] Ghulam Hall DPM Work Phone: [facility] 05-29-2023 17:14-0400 Body weight 81.65 kg Angela Calle HUMAN RESOURCES LEADER.SLITTER OPERATOR Work Phone: [facility] 05-29-2023 17:14-0400 Diastolic blood pressure 80 mm[Hg] Angela Calle HUMAN RESOURCES LEADER.SLITTER OPERATOR Work Phone: [facility] 05-29-2023 17:14-0400 Heart rate 94 /min Angela Calle HUMAN RESOURCES LEADER.SLITTER OPERATOR Work Phone: [facility] 05-29-2023 17:14-0400 Respiratory rate 14 /min Angela Calle HUMAN RESOURCES LEADER.SLITTER OPERATOR Work Phone: [facility] 05-29-2023 17:14-0400 Systolic blood pressure 138 mm[Hg] Angela Calle HUMAN RESOURCES LEADER.SLITTER OPERATOR Work Phone: [facility] 05-06-2023 13:43-0400 Body height 170.2 cm Glo Amezcua MD Work Phone: [facility] 05-06-2023 13:43-0400 Body mass index (BMI) [Ratio] 28.51 kg/m2 Glo Amezcua MD Work Phone: [facility] 05-06-2023 13:43-0400 Body temperature 98.4 [degF] Glo Amezcua MD Work Phone: [facility] 05-06-2023 13:43-0400 Body weight 82.56 kg Glo Amezcua MD Work Phone: [facility] 05-06-2023 13:43-0400 Diastolic blood pressure 79 mm[Hg] Glo Amezcua MD Work Phone: [facility] 05-06-2023 13:43-0400 Heart rate 78 /min Glo Amezcua MD Work Phone: [facility] 05-06-2023 13:43-0400 Respiratory rate 16 /min Glo Amezcua MD Work Phone: [facility] 05-06-2023 13:43-0400 SaO2% (BldA) [Mass fraction] 96 % Glo Amezcua MD Work Phone: [facility] 05-06-2023 13:43-0400 Systolic blood pressure 120 mm[Hg] Glo Amezcua MD Work Phone: [facility] 01-15-2023 18:17-0400 Diastolic blood pressure 52 mm[Hg] Viki Tannhof HUMAN RESOURCES LEADER.SLITTER OPERATOR Work Phone: [facility] 01-15-2023 18:17-0400 Systolic blood pressure 70 mm[Hg] Viki Tannhof HUMAN RESOURCES LEADER.SLITTER OPERATOR Work Phone: [facility] 01-15-2023 16:39-0400 Body temperature 98.01 [degF] Viki Tannhof HUMAN RESOURCES LEADER.SLITTER OPERATOR Work Phone: [facility] 01-15-2023 16:39-0400 Body weight 85.28 kg Viki Tannhof HUMAN RESOURCES LEADER.SLITTER OPERATOR Work Phone: [facility] 01-15-2023 16:39-0400 Heart rate 97 /min Viki Tannhof HUMAN RESOURCES LEADER.SLITTER OPERATOR Work Phone: [facility] 01-15-2023 16:39-0400 Respiratory rate 16 /min Viki Tannhof HUMAN RESOURCES LEADER.SLITTER OPERATOR Work Phone: [facility] 01-15-2023 16:39-0400 SaO2% (BldA) [Mass fraction] 98 % Viki Tannhof HUMAN RESOURCES LEADER.SLITTER OPERATOR Work Phone: [facility] 01-11-2023 07:38-0400 Body temperature 97.9 [degF] Dr. Khadijah Curran Work Phone: [facility] 01-11-2023 07:38-0400 Diastolic blood pressure 86 mm[Hg] Dr. Khadijah Curran Work Phone: [facility] 01-11-2023 07:38-0400 Heart rate 73 /min Dr. Khadijah Curran Work Phone: [facility] 01-11-2023 07:38-0400 Respiratory rate 16 /min Dr. Khadijah Curran Work Phone: [facility] 01-11-2023 07:38-0400 SaO2% (BldA) [Mass fraction] 97 % Dr. Khadijah Curran Work Phone: [facility] 01-11-2023 07:38-0400 Systolic blood pressure 134 mm[Hg] Dr. Khadijah Curran Work Phone: [facility] 01-10-2023 13:57-0400 Body height 170.[address] Khadijah Curran Work Phone: [facility] 01-10-2023 13:57-0400 Body weight 87.[address] Khadijah Curran Work Phone: [facility] 01-09-2023 14:39-0400 Body mass index (BMI) [Ratio] 30.2 kg/m2 Dr. Khadijah Curran Work Phone: [facility] 12-24-2022 14:49-0500 Body height 170.2 cm Glo Amezcua MD Work Phone: [facility] 12-24-2022 14:49-0500 Body mass index (BMI) [Ratio] 30.54 kg/m2 Glo Amezcua MD Work Phone: [facility] 12-24-2022 14:49-0500 Body temperature 98.4 [degF] Glo Amezcua MD Work Phone: [facility] 12-24-2022 14:49-0500 Body weight 88.45 kg Glo Amezcua MD Work Phone: [facility] 12-24-2022 14:49-0500 Diastolic blood pressure 79 mm[Hg] Glo Amezcua MD Work Phone: [facility] 12-24-2022 14:49-0500 Heart rate 92 /min Glo Amezcua MD Work Phone: [facility] 12-24-2022 14:49-0500 Respiratory rate 16 /min Glo Amezcua MD Work Phone: [facility] 12-24-2022 14:49-0500 SaO2% (BldA) [Mass fraction] 93 % Glo Amezcua MD Work Phone: [facility] 12-24-2022 14:49-0500 Systolic blood pressure 119 mm[Hg] Glo Amezcua MD Work Phone: [facility] 10-23-2022 15:54-0500 Body weight 88 kg Viki Tannhof HUMAN RESOURCES LEADER.SLITTER OPERATOR Work Phone: [facility] 10-23-2022 15:54-0500 Diastolic blood pressure 92 mm[Hg] Viki Tannhof HUMAN RESOURCES LEADER.SLITTER OPERATOR Work Phone: [facility] 10-23-2022 15:54-0500 Heart rate 95 /min Viki Tannhof HUMAN RESOURCES LEADER.SLITTER OPERATOR Work Phone: [facility] 10-23-2022 15:54-0500 Respiratory rate 16 /min Viki Tannhof HUMAN RESOURCES LEADER.SLITTER OPERATOR Work Phone: [facility] 10-23-2022 15:54-0500 SaO2% (BldA) [Mass fraction] 97 % Viki Tannhof HUMAN RESOURCES LEADER.SLITTER OPERATOR Work Phone: [facility] 10-23-2022 15:54-0500 Systolic blood pressure 138 mm[Hg] Viki Tannhof HUMAN RESOURCES LEADER.SLITTER OPERATOR Work Phone: [facility] 06-20-2022 15:28-0400 Body height 170.18 cm Khadijah [facility] Work Phone: [facility] Work Phone: 06-20-2022 15:28-0400 Body mass index (BMI) [Ratio] 31.95 kg/m2 Khadijah Curran Work Phone: [facility] Work Phone: 06-20-2022 15:28-0400 Body surface area Derived from formula 2.04 m2 Khadijah Curran Work Phone: [facility] Work Phone: 06-20-2022 15:28-0400 Body weight 92.53 kg Khadijah Curran Work Phone: [facility] Work Phone: 06-20-2022 15:28-0400 Diastolic blood pressure 84 mm[Hg] Khadijah Curran Work Phone: [facility] Work Phone: 06-20-2022 15:28-0400 Systolic blood pressure 138 mm[Hg] Khadijah Curran Work Phone: [facility] Work Phone: 06-04-2022 16:02-0400 Body weight 90.77 kg Khadijah Curran MD Work Phone: [facility] 06-04-2022 16:02-0400 Diastolic blood pressure 80 mm[Hg] Khadijah Curran MD Work Phone: [facility] 06-04-2022 16:02-0400 Heart rate 88 /min Khadijah Curran MD Work Phone: [facility] 06-04-2022 16:02-0400 Respiratory rate 18 /min Khadijah Curran MD Work Phone: [facility] 06-04-2022 16:02-0400 Systolic blood pressure 128 mm[Hg] Khadijah Curran MD Work Phone: [facility] 03-16-2022 11:04-0400 Body temperature 97.7 [degF] Ethan Robledo MD Work Phone: [facility] 03-16-2022 11:04-0400 Body weight 89 kg Ethan Robledo MD Work Phone: [facility] 03-16-2022 11:04-0400 Diastolic blood pressure 82 mm[Hg] Ethan Robledo MD Work Phone: [facility] 03-16-2022 11:04-0400 Heart rate 100 /min Ethan Robledo MD Work Phone: [facility] 03-16-2022 11:04-0400 Respiratory rate 18 /min Ethan Robledo MD Work Phone: [facility] 03-16-2022 11:04-0400 SaO2% (BldA) [Mass fraction] 98 % Ethan Robledo MD Work Phone: [facility] 03-16-2022 11:04-0400 Systolic blood pressure 110 mm[Hg] Ethan Robledo MD Work Phone: [facility] Encounters Encounter Date Encounter Type Care Provider Facility Start: 07-15-2025 ambulatory Robi Duckworth Facility :[facility] Start: 05-27-2025 End: 05-27-2025 ambulatory KHADIJAH CURRAN Facility:[facility] Start: 05-27-2025 End: 05-27-2025 Office outpatient visit 25 minutes Khadijah Curran MD Work Phone: [facility] Comment on above: Eye drainage (Primar y Dx); Ulcerative pancolitis without complication (HCC); Colitis; Chronic midline low back pain, unspecified whether sciatica present; Myalgia Start: 05-23-2025 End: 05-23-2025 Telephone encounter Khadijah Curran MD Work Phone: [facility] Comment on above: Patient Question; Sc anned Labs from Dr Duckworth Start: 05-20-2025 End: 05-20-[address] Khadijah Curran MD Work Phone: -Laboratory Start: 05-20-2025 End: 05-20-2025 Patient encounter procedure Robi Duckworth DO -Laboratory Work Phone: Start: 05-20-2025 End: 05-20-2025 Patient encounter procedure Roib Duckworth DO -[facility] Work Phone: Start: 05-20-2025 End: 05-20-[address] Khadijah Curran MD Work Phone: [facility] Start: 05-20-2025 End: 05-20-2025 ambulatory Robi Duckworth Facility:[facility] Start: 05-12-2025 End: 05-12-2025 ambulatory Khadijah Curran MD Work Phone: [facility] Comment on above: Heart questions; Vom iting Start: 05-12-2025 End: 05-12-2025 Telephone encounter Khadijah Curran MD Work Phone: Family [facility] Comment on above: Orders Start: 05-02-2025 End: 05-02-2025 Refill Khadijah Curran MD Work Phone: Family [facility] Comment on above: Refill Request Start: 02-08-2025 End: 02-08-2025 Refill Khadijah Curran MD Work Phone: Family [facility] Comment on above: Refill Request Start: 01-25-2025 End: 02-25-2025 ambulatory Khadijah Curran MD Work Phone: Family [facility] Start: 01-24-2025 End: 01-24-2025 Refill [facility] Comment on above: Refill Request Start: 01-15-2025 End: 02-26-2025 Refill Khadijah Curran MD Work Phone: Family [facility] Comment on above: Refill Request Start: 12-31-2024 End: 12-31-2024 ambulatory KHADIJAH CURRAN Facility:[facility] Start: 12-31-2024 End: 12-31-2024 Patient encounter procedure Khadijah Curran MD Work Phone: [facility] Comment on above: Essential hypertensi on (Primary Dx); Need for influenza vaccination; Ulcerative pancolitis without complication (HCC); Anxiety and depression; Chronic midline low back pain, unspecified whether sciatica present; Smoker; Colitis Start: 12-27-2024 End: 12-27-2024 Refill Khadijah Curran MD Work Phone: [facility] Comment on above: Refill Request Start: 11-19-2024 End: 11-19-2024 Refill Khadijah Curran MD Work Phone: [facility] Comment on above: Refill Request Start: 08-30-2024 End: 08-30-2024 Refill Khadijah Curran MD Work Phone: [facility] Comment on above: Refill Request Start: 08-11-2024 End: 08-11-2024 Refill Khadijah Curran MD Work Phone: [facility] Comment on above: Refill Request Start: 07-14-2024 End: 07-14-2024 Refill Khadijah Curran MD Work Phone: [facility] Comment on above: Refill Request Start: 05-26-2024 Refill Khadijah davalos MD Work Phone: [facility] Comment on above: Refill Request Start: 02-27-2024 Refill Khadijah davalos MD Work Phone: [facility] Comment on above: Refill Request Start: 02-25-2024 ambulatory Khadijah davalos MD Work Phone: [facility] [place] Start: 12-25-2023 Refill Mathieu Velasco APRN.SLITTER OPERATOR Work Phone: [facility] Comment on above: Refill Request Start: 12-01-2023 Telephone encounter Viki Fritz manley APRN.SLITTER OPERATOR Work Phone: [facility] Comment on above: Results (Labs/Urine ) Start: 11-28-2023 End: 11-28-2023 Patient encounter procedure Khadijah Curran MD Work Phone: [facility] Comment on above: Ulcerative pancoliti s without complication (HCC) (Primary Dx); Essential hypertension; Back pain, unspecified back location, unspecified back pain laterality, unspecified chronicity; Left sided abdominal pain; Need for influenza vaccination; Anxiety and depression Start: 09-16-2023 Refill Khadijah davalos MD Work Phone: [facility] Comment on above: Refill Request Start: 08-22-2023 Telephone encounter Khadijah parks MD Work Phone: [facility] Comment on above: Medication Request Start: 07-16-2023 Telephone encounter Viki manley HUMAN RESOURCES LEADER.SLITTER OPERATOR Work Phone: [facility] Comment on above: Results (Labs ) Start: 07-09-2023 End: 07-09-2023 Patient encounter procedure Viki Hernandez APRN.SLITTER OPERATOR Work Phone: [facility] Comment on above: Wellness examination (Primary Dx); Ulcerative pancolitis without complication (HCC); Anxiety with depression; Arthritis of right sternoclavicular joint; GERD without esophagitis; Screening cholesterol level; Screening for diabetes mellitus; Encounter for screening for lung cancer Start: 07-09-2023 End: 07-09-2023 Patient encounter status Viki Hernandez HUMAN RESOURCES LEADER.SLITTER OPERATOR Work Phone: [facility] Work Phone: Start: 07-08-2023 Refill Maxine Bernardo MA [facility] Start: 07-07-2023 End: 07-08-2023 ambulatory [facility] Start: 06-20-2023 Refill Khadijah davalos MD Work Phone: [facility] Comment on above: Refill Request Start: 06-19-2023 End: 06-23-2023 ambulatory [facility] Ambulatory Start: 06-19-2023 End: 06-19-2023 Office outpatient new 30 minutes Ghulam JUNEM Work Phone: [facility] Comment on above: 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 (Primary Dx); Bone spur of left foot Start: 06-16-2023 End: 06-16-2023 Office outpatient new 30 minutes Robert Camacho PA Work Phone: Orthopaedics Comment on above: Arthritis of right s ternoclavicular joint (Primary Dx); Biceps tendonitis on right; Mass in neck Start: 06-11-2023 Telephone encounter Khadijah parks MD Work Phone: [facility] Comment on above: Results Start: 06-09-2023 End: 06-09-2023 ambulatory [facility] Work Phone: Start: 06-09-2023 End: 06-09-2023 Patient encounter procedure [facility] Work Phone: Start: 05-30-2023 Telephone encounter Angela nielsen APRN.SLITTER OPERATOR Work Phone: [facility] Comment on above: Orders Start: 05-29-2023 End: 05-29-2023 Subsequent hospital visit by physician [facility] Work Phone: Radiology Comment on above: Mass in neck [R22.1] Start: 05-29-2023 End: 05-29-2023 Patient encounter procedure Angela Calle HUMAN RESOURCES LEADER.SLITTER OPERATOR Work Phone: [facility] Comment on above: Mass in neck (Primar y Dx) Start: 05-26-2023 Refill Khadijah davalos MD Work Phone: [facility] Comment on above: Refill Request Start: 05-06-2023 End: 05-06-2023 ambulatory GLO AMEZCUA [facility] Ambulatory Start: 05-06-2023 End: 05-06-2023 Office outpatient visit 40 minutes Glo Amezcua MD Work Phone: [facility] Comment on above: Essential hypertensi on (Primary Dx); Ulcerative colitis with complication, unspecified location (HCC); Edema of both legs; Prediabetes; Mid back pain; Back pain, unspecified back location, unspecified back pain laterality, unspecified chronicity Start: 03-12-2023 Telephone encounter Khadijah parks MD Work Phone: [facility] Comment on above: Patient Update Start: 03-10-2023 Documentation procedure Lonnie Jones LPN [facility] Comment on above: labs Start: 02-25-2023 End: 02-25-2023 ambulatory GLO TESFAYE DUMONT [facility] Ambulatory Start: 02-17-2023 Telephone encounter Khadijah parks MD Work Phone: [facility] Comment on above: Results Start: 02-11-2023 End: 02-11-2023 ambulatory [facility] Work Phone: OB/Gynecology Comment on above: C[facility] Ul[facility] Start: 02-11-2023 End: 02-11-2023 Patient encounter procedure [facility] Work Phone: [facility] Start: 01-27-2023 Refill Khadijah davalos MD Work Phone: [facility] Comment on above: Refill Request Start: 01-20-2023 Patient Outreach Tiera Ford RN Work Phone: Director Mobile Management Comment on above: Transition Of Care ( TCM Initial Hospital Discharge 01/18/2023/) Medication Problem Start: 01-15-2023 End: 01-18-2023 Evaluation and management of inpatient MARYLeona VILLARREAL Facility:[facility] Start: 01-15-2023 End: 01-15-2023 Patient encounter procedure Viki Hernandez APRN.SLITTER OPERATOR Work Phone: [facility] Comment on above: Hospital discharge f ollow-up (Primary Dx); Dizziness; Dehydration; Diarrhea, unspecified type Start: 01-13-2023 Patient Outreach Viki uribe APRN.SLITTER OPERATOR Work Phone: [facility] Comment on above: Transition Of Care; Alcohol Problem Start: 01-10-2023 Non-patient / Non-visit Dr. Esmer Curran Work Phone: [facility] Start: 01-09-2023 Non-patient / Non-visit Dr. Esmer Curran Work Phone: [facility] Start: 01-09-2023 End: 01-11-2023 Evaluation and management of inpatient Dr. Khadijah Curran Work Phone: [facility] Start: 01-09-2023 End: 01-09-2023 Patient encounter procedure Guru Scanlon HUMAN RESOURCES LEADER.SLITTER OPERATOR Work Phone: [facility] Comment on above: Generalized weakness (Primary Dx) Start: 01-01-2023 End: 01-05-2023 ambulatory [facility] Start: 12-25-2022 ambulatory GLO Pelaez [facility] Ambulatory Start: 12-24-2022 End: 12-28-2022 ambulatory [facility] Start: 12-24-2022 End: 12-24-2022 ambulatory [facility] Ambulatory Start: 12-24-2022 End: 12-24-2022 Office outpatient new 45 minutes Glo Amezcua MD Work Phone: [facility] Comment on above: Diarrhea, unspecifie d type (Primary Dx); Back pain, unspecified back location, unspecified back pain laterality, unspecified chronicity; Essential hypertension; Ulcerative colitis with complication, unspecified location (HCC); Smoker Start: 12-18-2022 Refill Khadijah davalos MD Work Phone: [facility] Comment on above: Refill Request Start: 11-14-2022 Refill Mathieu Velasco APRN.SLITTER OPERATOR Work Phone: [facility] Comment on above: Refill Request Start: 10-29-2022 Telephone encounter Khadijah parks MD Work Phone: [facility] [place] Comment on above: Medication Request ( Prednisone) Start: 10-24-2022 Telephone encounter Viki Fritz manley HUMAN RESOURCES LEADER.SLITTER OPERATOR Work Phone: [facility] Comment on above: Results (Flu/Covid ) Start: 10-23-2022 End: 10-23-2022 Patient encounter procedure Viki David HUMAN RESOURCES LEADER.SLITTER OPERATOR Work Phone: [facility] Comment on above: Viral illness (Prima ry Dx); Nausea Start: 09-05-2022 Refill Khadijah davalos MD Work Phone: [facility] Comment on above: Refill Request Start: 08-21-2022 Refill Khadijah davalos MD Work Phone: [facility] Comment on above: Refill Request Start: 08-07-2022 Refill Mathieu Velasco HUMAN RESOURCES LEADER.SLITTER OPERATOR Work Phone: [facility] Comment on above: Refill Request Start: 08-07-2022 AUDIT Khadijah davalos Work Phone: [place] [id number] Work Phone: Start: 08-02-2022 Chart Update Khadijah davalos Work Phone: [facility] 120 Work Phone: Start: 07-26-2022 End: 07-26-2022 ambulatory [facility] Facility:[id number] Start: 07-24-2022 Telephone encounter Khadijah parks MD Work Phone: [facility] [place] Comment on above: Insurance Forms Start: 07-16-2022 Refill Khadijah davalos MD Work Phone: [facility] Comment on above: Refill Request Start: 07-12-2022 Telephone encounter Mathieu gilliland HUMAN RESOURCES LEADER.SLITTER OPERATOR Work Phone: [facility] Comment on above: Results Start: 07-09-2022 End: 07-09-2022 Subsequent hospital visit by physician Bone Density [facility] Work Phone: Radiology Comment on above: Ulcerative pancoliti s without complication (HCC) [K51.00] Start: 06-21-2022 Rx Change Khadijah davalos Work Phone: [facility] Work Phone: Start: 06-20-2022 Office outpatient vi sit 25 minutes Khadijah Curran Work Phone: [facility] Work Phone: Start: 06-20-2022 ambulatory MAGDALENO WHITE Facility:[id number] Start: 06-17-2022 Refill Mathieuakila Velasco HUMAN RESOURCES LEADER.SLITTER OPERATOR Work Phone: [facility] [place] Comment on above: Refill Request Start: 06-04-2022 End: 06-04-2022 Patient encounter procedure Khadijah Curran MD Work Phone: [facility] Comment on above: Essential hypertensi on (Primary Dx); Anxiety; Chronic midline low back pain, unspecified whether sciatica present; Ulcerative pancolitis without complication (HCC); Smoker; Screening for osteoporosis; 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 Start: 05-31-2022 Refill Khadijah davalos MD Work Phone: [facility] Comment on above: Prescription Refills Start: 05-29-2022 Telephone encounter Khadijah parks MD Work Phone: [facility] Comment on above: Lab Orders Start: 04-22-2022 Refill Khadijah davalos MD Work Phone: [facility] Comment on above: Refill Request Start: 03-27-2022 ambulatory Khadijah davalos MD Work Phone: [facility] [place] Start: 03-19-2022 Telephone encounter Khadijah parks MD Work Phone: [facility] Comment on above: Results Start: 03-18-2022 Telephone encounter Khadijah parks MD Work Phone: [facility] Comment on above: Medication Request Start: 03-16-2022 End: 03-16-2022 Patient encounter procedure Ethan Robledo MD Work Phone: [facility] Comment on above: Suspected COVID-19 v irus infection (Primary Dx); Nausea Start: 02-11-2022 End: 02-11-2022 Emergency department patient visit KHADIJAH MAGDY [facility] Start: 02-03-2019 End: 02-04-2019 Patient encounter procedure Khadijah Curran Facility:[facility] Start: 08-27-2018 End: 08-28-2018 Patient encounter procedure France Gunn Facility:[facility] Start: 08-24-2018 End: 08-25-2018 Patient encounter procedure France Crandall [facility] Facility:[facility] Start: 08-24-2018 End: 08-25-2018 Patient encounter procedure France Crandall Luis A Facility:[facility] Start: 08-24-2018 Patient encounter procedure France Crandall Luis A Facility:[facility] Start: 07-30-2018 Patient encounter procedure France Gunn Facility:[facility] Procedures Date Procedure Procedure Detail Performing Clinician Start: 05-20-2025 Rich Curran MD Work Phone: Start: 05-20-2025 Sesame heron Curran MD Work Phone: Comment on above: Performed at: [facility] [id number] Director: Bill Palomares PhD, Phone: [phone] at: [facility] [id number] Director: Srikanth Stroud MD, Phone: [phone] Start: 05-20-[address] Khadijah Curran MD Work Phone: Start: 05-20-[address] Khadijah davalos MD Work Phone: Start: 05-20-[address] Khadijah parks MD Work Phone: Start: 05-20-[address] Khadijah polanco MD Work Phone: Start: 05-20-[address] Khadijah Curran MD Work Phone: Start: 05-20-2025 End: 05-20-[address] Khadijah davalos MD Work Phone: Start: 12-31-2024 Lipid 1996 panel - Serum or Plasma Khadijah Curran MD Work Phone: Start: 11-28-2023 INFLUENZA VACCINE, AGE 6 MO - 64 YR, QUADRIVALENT (AFLURIA, FLULAVAL, FLUZONE) Khadijah Curran MD Work Phone: Start: 07-15-2023 Lipid 1996 panel - Serum or Plasma Zachery Hernandez HUMAN RESOURCES LEADER.SLITTER OPERATOR Work Phone: Start: 06-16-2023 Arthrocentesis aspir&/inj major jt/bursa w/o us Robert PINO Work Phone: Start: 06-09-2023 Ultrasonography of thyroid and parathyroid Start: 05-29-2023 Radex clavicle complete Angela Calle HUMAN RESOURCES LEADER.SLITTER OPERATOR Work Phone: Start: 02-11-2023 Us pelvic nonobstetric real-time image complete Khadijah Curran MD Work Phone: Start: 10-23-2022 COVID WITH FLUA+B, ROUTINE Viki uribe HUMAN RESOURCES LEADER.SLITTER OPERATOR Work Phone: Start: 07-26-2022 ENDOSCOPY Glo Amezcua MD Work Phone: Start: 07-26-2022 PATHOLOGY Glo Amezcua MD Work Phone: Start: 07-26-2022 End: 07-26-2022 Colonoscopy Khadijah Curran Work Phone: Start: 07-09-2022 Dxa bone density study 1/> sites axial skel Khadijah Curran MD Work Phone: Start: 06-04-2022 Adult depression screening assessment Khadijah Curran MD Work Phone: Start: 05-31-2022 Lipid 1996 panel - Serum or Plasma Zachery Hernandez HUMAN RESOURCES LEADER.SLITTER OPERATOR Work Phone: Start: 03-16-2022 Urnls dip stick/tablet rgnt auto w/o microscopy Ethan Robledo MD Work Phone: Start: 03-16-2022 2019 CORONAVIRUS Ethan Robledo MD Work Phone: Start: 02-19-2021 Mammography Ethan Robledo MD Work Phone: Start: 12-22-2018 Adult depression screening assessment Ethan Robledo MD Work Phone: Start: 06-13-2017 Colonoscopy Ethan Robledo MD Work Phone: Colonoscopy Khadijah lorenzo Work Phone: Enteric Bacteriology Dr. Nadya Curran Work Phone: Esophagogastroduodenoscopy Latanya Curran Work Phone: Plan of Treatment Date Care Activity Detail Author Start: 2040 RSV Vaccine (1 - 1-dose 75+ series) RSV Vaccine (1 - 1-dose 75+ series) [facility] Start: 07-26-2032 Screening for malignant neoplasm of colon [facility] Start: 12-31-2029 Lipid panel Lipid Screening [facility] Start: 07-15-2028 Lipid 1996 panel - Serum or Plasma Lipid Screening [facility] Start: 07-15-2028 Lipid panel Lipid Screening [facility] Start: 01-01-2028 Diabetes Screening Diabetes Screening [facility] Start: 05-31-2027 Lipid 1996 panel - Serum or Plasma Lipid Screening [facility] Start: 05-31-2027 LIPID SCREEN LIPID SCREEN [facility] Start: 11-28-2026 Diabetes Screening Diabetes Screening [facility] Start: 07-15-2026 Diabetes Screening Diabetes Screening [facility] Start: 05-27-2026 Annual PCP Team Chronic Disease Visit Annual PCP Team Chronic Disease Visit [facility] Start: 02-17-2026 LIPID SCREEN LIPID SCREEN [facility] Start: 03-25-2026 DIABETES SCREEN DIABETES SCREEN [facility] Start: 01-18-2026 Diabetes Screening Diabetes Screening [facility] Start: 01-15-2026 DIABETES SCREEN DIABETES SCREEN [facility] Start: 12-31-2025 Annual PCP Team Chronic Disease Visit Annual PCP Team Chronic Disease Visit [facility] Start: 07-26-2025 Colonoscopy COLONOSCOPY [facility] Start: 07-26-2025 COLORECTAL CANCER SCREENING COLORECTAL CANCER SCREENING [facility] Start: 07-26-2025 Screening for malignant neoplasm of colon [facility] Start: 06-27-2025 Influenza vaccination Influenza Vaccine (#1) [facility] Start: 05-31-2025 DIABETES SCREEN DIABETES SCREEN [facility] Start: 05-27-2025 End: 05-27-2025 Patient encounter procedure 05/27/2025 11:40 AM EDT Office Visit [facility] [address] [place], [place] [id number] Khadijah Curran MD [address] [place] [address] Dr Duckworth sent over labs with eye cultures, Pt has occasional blurred vision, L eye runny/itchy. See TE 05/23/25 [facility] [place] Comment on above: Dr Duckworth sent over labs with eye cultur es, Pt has occasional blurred vision, L eye runny/itchy. See TE 05/23/25 Start: 05-20-2025 Aldolase [Enzymatic activity/volume] in Serum or Plasma [facility] Start: 05-20-2025 Angiotensin converting enzyme [Enzymatic activity/volume] in Serum or Plasma [facility] Start: 05-20-2025 Ceruloplasmin [Mass/volume] in Serum or Plasma [facility] Start: 05-20-2025 Gastrin [Mass/volume] in Serum or Plasma [facility] Start: 05-20-2025 Immunoglobulin measurement [facility] Start: 05-20-2025 Measurement of Borrelia burgdorferi antibody [facility] Start: 05-20-2025 Serum immunofixation [facility] Start: 05-20-2025 Smooth muscle Ab [Presence] in Serum [facility] Start: 05-20-2025 [facility] Start: 2025 HEPATITIS B (1 of 3 - Risk 3-dose series) HEPATITIS B (1 of 3 - Risk 3-dose series) [facility] Start: 2025 Hepatitis B Vaccine (1 of 3 - Risk 3-dose series) Hepatitis B Vaccine (1 of 3 - Risk 3-dose series) [facility] Start: 01-20-2025 End: 01-20-2025 Patient encounter procedure 01/20/2025 3:40 PM EDT Office Visit [facility] [address] [place] [id number] Khadijah Curran MD [address] [facility] [place] [id number] 1 month follow up Family [facility] Comment on above: 1 month follow up Start: 12-31-2024 End: 04-01-2025 CBC W Auto Differential panel - Blood [facility] Comment on above: Expected: 12/31/2024, Expires: Start: 12-31-2024 End: 04-01-2025 Comprehensive metabolic 2000 panel - Serum or Plasma [facility] Work Phone: Comment on above: Expected: 12/31/2024 (Approximate), Expi res: 04/01/2025 Start: 12-31-2024 End: 04-01-2025 LIPID PANEL, NONFASTING [facility] Comment on above: Expected: 12/31/2024, Expires: Start: 12-29-2024 End: 12-29-2024 Patient encounter procedure 12/29/2024 4:40 PM EST Office Visit Family Toma Grijalva [address] [place] [address] Viki Hernandez APRN.SLITTER OPERATOR [address] [place], [place] [id number] med check [facility] Comment on above: med check Start: 11-28-2024 Annual PCP Team Chronic Disease Visit Annual PCP Team Chronic Disease Visit [facility] Start: 11-28-2024 BP Controlled (<130/80) BP Controlled (<130/80) [facility] Start: 07-09-2024 Annual PCP Team Chronic Disease Visit Annual PCP Team Chronic Disease Visit [facility] Start: 07-09-2024 Hepatitis A Vaccine (1 of 2 - Risk 2-dose series) Hepatitis A Vaccine (1 of 2 - Risk 2-dose series) [facility] Comment on above: Postponed from 1984 (Declined at t his time) Start: 07-09-2024 HIV Screening HIV Screening [facility] Comment on above: Postponed from 1983 (Declined at t his time) Start: 07-09-2024 HIV screening HIV Screening [facility] Comment on above: Postponed from 1983 (Declined at t his time) Start: 07-09-2024 Meningococcal B Vaccine: Consider Based On Risk (1 of 4 - Increased Risk) Meningococcal B Vaccine: Consider Based On Risk (1 of 4 - Increased Risk) [facility] Comment on above: Postponed from 1975 (Declined at t his time) Start: 07-09-2024 MMR Vaccine (1 of 2 - Risk 2-dose series) MMR Vaccine (1 of 2 - Risk 2-dose series) [facility] Comment on above: Postponed from 1983 (Declined at t his time) Start: 07-09-2024 Pneumococcal vaccination [facility] Comment on above: Postponed from 10/12/2015 (Declined at t his time) Start: 06-27-2024 Covid-19 Vaccine ( season) Covid-19 Vaccine ( season) [facility] Start: 06-27-2024 Covid-19 Vaccine ( season) Covid-19 Vaccine ( season) [facility] Start: 06-27-2024 Influenza [facility] Start: 05-29-2024 ANNUAL PCP TEAM CHRONIC DISEASE VISIT ANNUAL PCP TEAM CHRONIC DISEASE VISIT [facility] Start: 02-18-2024 DIABETES SCREEN DIABETES SCREEN [facility] Start: 01-28-2024 ANNUAL PCP TEAM CHRONIC DISEASE VISIT ANNUAL PCP TEAM CHRONIC DISEASE VISIT [facility] Start: 01-16-2024 ANNUAL PCP TEAM CHRONIC DISEASE VISIT ANNUAL PCP TEAM CHRONIC DISEASE VISIT [facility] Start: 01-16-2024 BP CONTROLLED (<130/80) BP CONTROLLED (<130/80) [facility] Start: 12-15-2023 End: 03-15-2024 Comprehensive metabolic 2000 panel - Serum or Plasma COMP METABOLIC PANEL Lab Routine Hypokalemia Expected: 12/15/2023, Expires: 03/15/2024 [facility] Work Phone: Comment on above: Expected: 12/15/2023, Expires: Start: 10-23-2023 ANNUAL PCP TEAM CHRONIC DISEASE VISIT ANNUAL PCP TEAM CHRONIC DISEASE VISIT [facility] Start: 08-07-2023 End: 08-07-2023 Patient encounter procedure 08/07/2023 3:00 PM EDT Office Visit [facility] [address] [place] [phone] Glo Amezcua MD [address] [address] [facility] Start: 07-31-2023 End: 07-31-2023 Patient encounter procedure 07/31/2023 3:30 PM EDT Office Visit [facility] [address] [facility] [place] [phone] Ghulam Hall, DARIELA [address] [place] [address] [facility] Start: 07-09-2023 End: 09-08-2023 Comprehensive metabolic 2000 panel - Serum or Plasma COMP METABOLIC PANEL Lab Routine Ulcerative pancolitis without complication (HCC) Expected: 07/09/2023, Expires: 09/08/2023 [facility] Work Phone: Comment on above: Expected: 07/09/2023, Expires: Start: 07-09-2023 End: 09-08-2023 Hemoglobin A1c in Blood HGB A1C Lab Routine Screening for diabetes mellitus Expected: 07/09/2023, Expires: 09/08/2023 [facility] Work Phone: Comment on above: Expected: 07/09/2023, Expires: Start: 07-09-2023 End: 09-08-2023 Lipid 1996 panel - Serum or Plasma LIPID PANEL BASIC Lab Routine Screening cholesterol level Expected: 07/09/2023, Expires: 09/08/2023 [facility] Work Phone: Comment on above: Expected: 07/09/2023, Expires: Start: 07-07-2023 End: 07-07-2023 Patient encounter procedure 07/07/2023 3:00 PM EDT Appointment [facility] [address] [place] [address] Glo Amezcua MD [address] [place] [id number] [facility] Start: 07-04-2023 End: 07-04-2023 Patient encounter procedure 07/04/2023 2:30 PM EDT Office Visit [facility] [address] [facility] [address], 2nd [place] [phone] Glo Amezcua MD [address] [place] [id number] Brayan Whelan MD [address] [place] [id number] [facility] Start: 06-27-2023 Covid-19 Vaccine ( season) Covid-19 Vaccine ( season) [facility] Start: 06-27-2023 Influenza vaccination [facility] Start: 06-12-2023 End: 06-12-2023 Telemedicine consultation with patient 06/12/2023 2:40 PM EDT Telemedicine Telephone [facility] [address] [place] [phone] Glo Amezcua MD [address] [address] [facility] Start: 06-04-2023 Adult depression screening assessment DEPRESSION SCREENING [facility] Start: 06-04-2023 ANNUAL PCP TEAM CHRONIC DISEASE VISIT ANNUAL PCP TEAM CHRONIC DISEASE VISIT [facility] Start: 05-06-2023 End: 05-06-2023 Patient encounter procedure 05/06/2023 1:40 PM EDT Office Visit [facility] [address] [place] [address] Glo Amezcua MD [facility] [address] [address] [facility] Start: 03-16-2023 ANNUAL PCP TEAM CHRONIC DISEASE VISIT ANNUAL PCP TEAM CHRONIC DISEASE VISIT [facility] Start: 02-25-2023 End: 02-25-2023 Patient encounter procedure 02/25/2023 Office Visit Primary Care Glo Amezcua MD [address] [address] [facility] Start: 01-11-2023 Patient discharge [facility] Start: 01-09-2023 Following clinical pathway protocol [facility] Start: 01-09-2023 Ambulation without limitation [facility] Start: 01-09-2023 Assessment of risk of venous thromboembolism [facility] Start: 01-09-2023 Insertion of catheter into peripheral vein [facility] Start: 01-09-2023 Providing care according to standard [facility] Start: 01-09-2023 [facility] Start: 01-09-2023 Verification routine [facility] Start: 01-09-2023 Admission procedure [facility] Start: 01-09-2023 Patient referral to dietitian [facility] Start: 12-10-2022 End: 02-09-2023 C reactive protein [Mass/volume] in Serum or Plasma C-REACTIVE PROTEIN (CRP) Lab Routine Ulcerative pancolitis without complication (HCC) Expected: 12/10/2022 (Approximate), Expires: 02/09/2023 [facility] Work Phone: Comment on above: Expected: 12/10/2022 (Approximate), Expi res: 02/09/2023 Start: 12-10-2022 End: 02-09-2023 CBC panel - Blood by Automated count CBC Lab Routine Ulcerative pancolitis without complication (HCC) Expected: 12/10/2022 (Approximate), Expires: 02/09/2023 [facility] Work Phone: Comment on above: Expected: 12/10/2022 (Approximate), Expi res: 02/09/2023 Start: 12-10-2022 End: 02-09-2023 Comprehensive metabolic 2000 panel - Serum or Plasma COMP METABOLIC PANEL Lab Routine Ulcerative pancolitis without complication (HCC) Expected: 12/10/2022 (Approximate), Expires: 02/09/2023 [facility] Work Phone: Comment on above: Expected: 12/10/2022 (Approximate), Expi res: 02/09/2023 Start: 12-10-2022 End: 02-09-2023 Erythrocyte sedimentation rate SED RATE WESTERGREN Lab Routine Ulcerative pancolitis without complication (HCC) Expected: 12/10/2022 (Approximate), Expires: 02/09/2023 [facility] Work Phone: Comment on above: Expected: 12/10/2022 (Approximate), Expi res: 02/09/2023 Start: 10-27-2022 DEPRESSION ASSESSMENT DEPRESSION ASSESSMENT [facility] Start: 07-26-2022 EGDCOLON, Provider: Magdaleno White, Status: Pen, Time: 8:00 AM EGDCOLON, Provider: Magdaleno White, Status: Joshua, Time: 8:00 AM [facility] [address] Work Phone: Start: 06-30-2022 Tetanus vaccination Tetanus: Every 10yrs [facility] Start: 06-30-2022 Urine microalbumin profile [facility] Start: 06-27-2022 Influenza vaccination [facility] Start: 05-29-2022 End: 07-29-2022 25-hydroxyvitamin D3 [Mass/volume] in Serum or Plasma VITAMIN D 25 HYDROXY Lab Routine Vitamin D deficiency Expected: 05/29/2022 (Approximate), Expires: 07/29/2022 [facility] Work Phone: Comment on above: Expected: 05/29/2022 (Approximate), Expi res: 07/29/2022 Start: 05-29-2022 End: 07-29-2022 CBC W Auto Differential panel - Blood CBC + DIFF Lab Routine Essential hypertension Expected: 05/29/2022, Expires: 07/29/2022 [facility] Work Phone: Comment on above: Expected: 05/29/2022, Expires: 2 Start: 05-29-2022 End: 07-29-2022 Comprehensive metabolic 2000 panel - Serum or Plasma COMP METABOLIC PANEL Lab Routine Essential hypertension Expected: 05/29/2022, Expires: 07/29/2022 [facility] Work Phone: Comment on above: Expected: 05/29/2022, Expires: 2 Start: 05-29-2022 End: 07-29-2022 Lipid 1996 panel - Serum or Plasma LIPID PANEL BASIC Lab Routine Hyperlipidemia, mixed Expected: 05/29/2022, Expires: 07/29/2022 [facility] Work Phone: Comment on above: Expected: 05/29/2022, Expires: 2 Start: 02-19-2022 Mammography [facility] Start: 02-19-2022 Screening for malignant neoplasm of breast [facility] Start: 10-27-2021 DEPRESSION ASSESSMENT DEPRESSION ASSESSMENT [facility] Start: 06-29-2021 COVID-19 VACCINE (3 - Booster for Pfizer series) COVID-19 VACCINE (3 - Booster for Pfizer series) [facility] Start: 03-24-2021 COVID-19 VACCINE (3 - Booster for Pfizer series) COVID-19 VACCINE (3 - Booster for Pfizer series) [facility] Start: 03-24-2021 COVID-19 VACCINE (3 - Pfizer series) COVID-19 VACCINE (3 - Pfizer series) [facility] Start: 06-13-2020 Colonoscopy COLONOSCOPY [facility] Start: 06-13-2020 COLORECTAL CANCER SCREENING COLORECTAL CANCER SCREENING [facility] Start: 12-22-2019 Adult depression screening assessment DEPRESSION SCREENING [facility] Start: 11-18-2018 HPV TESTING HPV TESTING [facility] Start: 11-18-2018 PAP TESTING PAP TESTING [facility] Start: 11-18-2018 Screening for malignant neoplasm of cervix [facility] Start: 11-18-2016 Screening for malignant neoplasm of cervix Cervical Cancer Screening [facility] Start: 08-17-2016 PNEUMOCOCCAL (2 - PPSV23 if available, else PCV20) PNEUMOCOCCAL (2 - PPSV23 if available, else PCV20) [facility] Start: 08-17-2016 PNEUMOCOCCAL (2 - PPSV23 or PCV20) PNEUMOCOCCAL (2 - PPSV23 or PCV20) [facility] Start: 08-17-2016 Pneumococcal Vaccine: Ped or At-Risk (2 - PPSV23 if available, else PCV20) Pneumococcal Vaccine: Ped or At-Risk (2 - PPSV23 if available, else PCV20) [facility] Start: 10-12-2015 PNEUMOCOCCAL (2 - PPSV23 if available, else PCV20) PNEUMOCOCCAL (2 - PPSV23 if available, else PCV20) [facility] Start: 10-12-2015 PNEUMOCOCCAL (2 - PPSV23 or PCV20) PNEUMOCOCCAL (2 - PPSV23 or PCV20) [facility] Start: 10-12-2015 Pneumococcal vaccination Pneumococcal Vaccine (2 of 2 - PPSV23 or PCV20) [facility] Start: 10-12-2015 Pneumococcal Vaccine: 50+ (2 of 2 - PPSV23) Pneumococcal Vaccine: 50+ (2 of 2 - PPSV23) [facility] Start: 10-12-2015 Pneumococcal Vaccine: Ped or At-Risk (2 - PPSV23 if available, else PCV20) Pneumococcal Vaccine: Ped or At-Risk (2 - PPSV23 if available, else PCV20) [facility] Start: 10-12-2015 Pneumococcal Vaccine: Ped or At-Risk (2 - PPSV23 or PCV20) Pneumococcal Vaccine: Ped or At-Risk (2 - PPSV23 or PCV20) [facility] Start: 2015 Administration of herpes zoster vaccine Zoster Vaccines (1 of 2) [facility] Start: 2015 Influenza vaccination LUNG CANCER SCREENING [facility] Start: 2015 Screening for malignant neoplasm of colon Flexible sigmoidoscopy [facility] Start: 2015 Screening for malignant neoplasm of lung Lung Cancer Screening [facility] Start: 2015 SHINGRIX VACCINE (1 of 2) SHINGRIX VACCINE (1 of 2) [facility] Start: 2010 COLOGUARD (FIT-DNA) COLOGUARD (FIT-DNA) [facility] Start: [address] COLONOGRAPHY [facility] Start: 2010 FECAL OCCULT BLOOD FECAL OCCULT BLOOD [facility] Start: 2010 Screening for malignant neoplasm of colon [facility] Start: 2010 SIGMOIDOSCOPY SIGMOIDOSCOPY [facility] Start: 2005 Screening for malignant neoplasm of breast Mammogram [facility] Start: 1986 Screening for malignant neoplasm of cervix Pap Smear [facility] Start: 1984 HEPATITIS A (1 of 2 - Risk 2-dose series) HEPATITIS A (1 of 2 - Risk 2-dose series) [facility] Start: 1984 HEPATITIS B (1 of 3 - Risk 3-dose series) HEPATITIS B (1 of 3 - Risk 3-dose series) [facility] Start: 1984 ONE PNEUMOVAX PRIOR TO AGE 65 ONE PNEUMOVAX PRIOR TO AGE 65 [facility] Start: 1983 BP CONTROLLED (<130/80) BP CONTROLLED (<130/80) [facility] Start: 1983 Hepatitis C screening Hepatitis C Screening [facility] Start: 1983 HIV SCREENING HIV SCREENING [facility] Start: 1983 HIV screening HIV Screening [facility] Start: 1983 MMR (1 of 2 - Risk 2-dose series) MMR (1 of 2 - Risk 2-dose series) [facility] Start: 1980 HIV screening HIV Screening [facility] Start: 1977 Depression screening using PHQ-9 (Patient Health Questionnaire 9) score Depression Screening (PHQ-2/9) [facility] Start: 1975 MENINGOCOCCAL B: Consider based on risk (1 of 4 - Increased Risk Bexsero 2-dose series) MENINGOCOCCAL B: Consider based on risk (1 of 4 - Increased Risk Bexsero 2-dose series) [facility] Start: 1975 MENINGOCOCCAL B: Consider based on risk (1 of 4 - Increased Risk) MENINGOCOCCAL B: Consider based on risk (1 of 4 - Increased Risk) [facility] Start: 1971 PNEUMOCOCCAL (1 - PCV) PNEUMOCOCCAL (1 - PCV) [facility] Start: 1968 History and physical examination, annual for health maintenance Wellness Visit [facility] Start: 1966 HEPATITIS A (1 of 2 - Risk 2-dose series) HEPATITIS A (1 of 2 - Risk 2-dose series) [facility] Start: 1965 COVID-19 Vaccine (#1) COVID-19 Vaccine (#1) [facility] Start: 1965 Screening for malignant neoplasm of cervix Pap Smear [facility] Start: 1965 Screening for malignant neoplasm of colon [facility] Albumin [Moles/volum e] in Serum or Plasma [facility] Albumin/Globulin ratio [facility] End: 06-19-2024 CASPER measurement CASPER Lab Routine Primary osteoarthritis of left foot Bone spur of left foot 1 Occurrences starting 06/19/2023 until 06/19/2024 [facility] Comment on above: 1 Occurrences starting 06/19/2023 until 06/19/2024 Calprotectin [Mass/m ass] in Stool CALPROTECTIN,FECAL Lab Routine Diarrhea, unspecified type Ordered: 01/15/2023 [facility] Work Phone: Comment on above: Ordered: 01/15/2023 Chitobioside IgA Ab [Units/volume] in Serum or Plasma by Immunoassay [facility] Clostridioides diffi cile DNA [Presence] in Unspecified specimen by TIFFANY with probe detection [facility] Clostridioides diffi cile toxin genes [Presence] in Stool by TIFFANY with probe detection C. DIFFICILE PCR Lab Routine Diarrhea, unspecified type Ordered: 01/15/2023 [facility] Work Phone: Comment on above: Ordered: 01/15/2023 End: 12-24-2023 Clostridium difficile toxin assay Clostridium Difficile Testing Microbiology Routine Diarrhea, unspecified type 1 Occurrences starting 12/24/2022 until 12/24/2023 [facility] Comment on above: 1 Occurrences starting 12/24/2022 until 12/24/2023 End: 05-06-2024 Comprehensive metabolic 2000 panel - Serum or Plasma Comprehensive Metabolic Panel Lab Routine Essential hypertension 1 Occurrences starting 05/06/2023 until 05/06/2024 [facility] Comment on above: 1 Occurrences starting 05/06/2023 until 05/06/2024 End: 02-24-2026 DBT Breast - bilateral screening SILVERIO SCREENING [facility] Radiology Routine Encounter for screening mammogram for breast cancer 1 Occurrences starting 01/25/2025 until 02/24/2026 [facility] Work Phone: Comment on above: 1 Occurrences starting 01/25/2025 until 02/24/2026 Drugs of abuse urine screening test Drugs of Abuse Screen, Urine Lab Routine Mid back pain Ordered: 05/06/2023 [facility] Comment on above: Ordered: 05/06/2023 End: 07-04-2023 Dxa bone density study 1/ sites axial skel DXA-AXIAL SKELETON Radiology Routine Ulcerative pancolitis without complication (HCC) Smoker Screening for osteoporosis 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 1 Occurrences starting 06/04/2022 until 07/04/2023 [facility] Work Phone: Comment on above: 1 Occurrences starting 06/04/2022 until 07/04/2023 End: 07-07-2024 Echocardiography Echocardiogram complete Echocardiography Routine Edema of both legs 1 Occurrences starting 05/06/2023 until 07/07/2024 [facility] Work Phone: Comment on above: 1 Occurrences starting 05/06/2023 until 07/07/2024 Elastase.pancreatic [Presence] in Stool [facility] Electrophoresis: [id number] [facility] Electrophoresis: john ma globulin [facility] ENTERIC BACTERIAL PA LORI BY PCR ENTERIC BACTERIAL PANEL BY PCR Lab Routine Diarrhea, unspecified type Ordered: 01/15/2023 [facility] Work Phone: Comment on above: Ordered: 01/15/2023 Fat [Presence] in Stool [facility] Folate [Moles/volume ] in Serum or Plasma [facility] End: 12-24-2023 Gastrointestinal pathogens DNA and RNA panel - Stool by TIFFANY with non-probe detection Stool/GI PCR Panel Microbiology Routine Diarrhea, unspecified type 1 Occurrences starting 12/24/2022 until 12/24/2023 [facility] Comment on above: 1 Occurrences starting 12/24/2022 until 12/24/2023 Globulin measurement [facility] End: 05-06-2024 Hemoglobin A1c/Hemoglobin.total in Blood Hemoglobin A1c Lab Routine Prediabetes 1 Occurrences starting 05/06/2023 until 05/06/2024 [facility] Comment on above: 1 Occurrences starting 05/06/2023 until 05/06/2024 End: 06-19-2024 Human leukocyte antigen B27 antigen phenotyping HLA-B27 Antigen Lab Routine Primary osteoarthritis of left foot Bone spur of left foot 1 Occurrences starting 06/19/2023 until 06/19/2024 [facility] Comment on above: 1 Occurrences starting 06/19/2023 until 06/19/2024 IgA [Mass/volume] in Serum or Plasma [facility] IgE [Units/volume] i n Serum or Plasma [facility] IgG [Mass/volume] in Serum or Plasma [facility] IgM [Mass/volume] in Serum or Plasma [facility] Laboratory data interpretation [facility] Lactoferrin [Presenc e] in Stool by Immunoassay [facility] Laminaribioside IgG Ab [Units/volume] in Serum or Plasma by Immunoassay [facility] End: 05-06-2024 Lipid 1996 panel - Serum or Plasma Lipid Panel Lab Routine Essential hypertension 1 Occurrences starting 05/06/2023 until 05/06/2024 [facility] Comment on above: 1 Occurrences starting 05/06/2023 until 05/06/2024 Mannobioside IgG Ab [Units/volume] in Serum or Plasma by Immunoassay [facility] Measurement of funga l antibody [facility] Measurement of occul t blood in stool specimen using immunoassay [facility] End: 03-26-2025 MG Breast Screening SILVERIO SCREENING Radiology Routine Encounter for screening mammogram for breast cancer 1 Occurrences starting 02/25/2024 until 03/26/2025 [facility] Work Phone: Comment on above: 1 Occurrences starting 02/25/2024 until 03/26/2025 End: 05-06-2024 Microalbumin measurement, urine, quantitative Microalbumin/Creatinine Ratio, UR Random Lab Routine Essential hypertension 1 Occurrences starting 05/06/2023 until 05/06/2024 [facility] Comment on above: 1 Occurrences starting 05/06/2023 until 05/06/2024 End: 05-06-2024 Natriuretic peptide.B prohormone N-Terminal [Mass/volume] in Serum or Plasma NT PRO BNP Lab Routine Essential hypertension Edema of both legs 1 Occurrences starting 05/06/2023 until 05/06/2024 [facility] Comment on above: 1 Occurrences starting 05/06/2023 until 05/06/2024 Neutrophil cytoplasm ic Ab.classic [Units/volume] in Serum [facility] Neutrophil cytoplasm ic Ab.perinuclear.atypical [Titer] in Serum by Immunofluorescence [facility] Nucleic acid assay [facility] Ova and parasites identified in Unspecified specimen by Light microscopy OVA + PARA MICROSCOPIC Microbiology Routine Diarrhea, unspecified type Ordered: 01/15/2023 [facility] Work Phone: Comment on above: Ordered: 01/15/2023 P-ANCA measurement [facility] Patient Education ED Diarrhea, V iral (Adult) [facility] Work Phone: Patient referral [facility] Work Phone: Protein electrophore sis panel - Serum or Plasma [facility] Protein measurement [facility] End: 06-19-2024 Rheumatoid factor, quantitative Rheumatoid factor Lab Routine Primary osteoarthritis of left foot Bone spur of left foot 1 Occurrences starting 06/19/2023 until 06/19/2024 [facility] Work Phone: Comment on above: 1 Occurrences starting 06/19/2023 until 06/19/2024 End: 04-26-2023 Screening mammography bi 2-view breast inc cad SILVERIO SCREENING Radiology Routine Encounter for screening mammogram for breast cancer 1 Occurrences starting 03/27/2022 until 04/26/2023 [facility] Work Phone: Comment on above: 1 Occurrences starting 03/27/2022 until 04/26/2023 End: 05-06-2024 Thyrotropin [Units/volume] in Serum or Plasma TSH with Reflex Free T4 Lab Routine Essential hypertension 1 Occurrences starting 05/06/2023 until 05/06/2024 [facility] Comment on above: 1 Occurrences starting 05/06/2023 until 05/06/2024 End: 12-24-2023 Tissue transglutaminase IgA measurement Tissue Transglutaminase, IgA Lab Routine Diarrhea, unspecified type 1 Occurrences starting 12/24/2022 until 12/24/2023 [facility] Work Phone: Comment on above: 1 Occurrences starting 12/24/2022 until 12/24/2023 Tissue transglutamin ase IgA measurement Tissue Transglutaminase, IgA Lab Routine Diarrhea, unspecified type 12/24/2022 3:55 PM EST [facility] End: 06-27-2024 US EXTREMITY MASS/FLUID COLLECTION RIGHT US EXTREMITY MASS/FLUID COLLECTION RIGHT Radiology Routine Mass in neck 1 Occurrences starting 05/29/2023 until 06/27/2024 [facility] Work Phone: Comment on above: 1 Occurrences starting 05/29/2023 until 06/27/2024 End: 06-28-2024 US HEAD/NECK SOFT TISSUE OTHER US HEAD/NECK SOFT TISSUE OTHER Radiology Routine Mass in neck 1 Occurrences starting 05/30/2023 until 06/28/2024 [facility] Work Phone: Comment on above: 1 Occurrences starting 05/30/2023 until 06/28/2024 End: 06-27-2024 XR CLAVICLE 2V RIGHT XR CLAVICLE 2V RIGHT Radiology Routine Mass in neck 1 Occurrences starting 05/29/2023 until 06/27/2024 [facility] Work Phone: Comment on above: 1 Occurrences starting 05/29/2023 until 06/27/2024 XR CLAVICLE 2V RIGHT XR CLAVICLE 2V RIGHT Radiology Routine Mass in neck 05/29/2023 5:50 PM EDT [facility] Work Phone: End: 12-24-2023 XR Lumbar Spine 2-3 Views (Standard) XR Lumbar Spine 2-3 Views (Standard) Imaging Routine Back pain, unspecified back location, unspecified back pain laterality, unspecified chronicity 1 Occurrences starting 12/24/2022 until 12/24/2023 [facility] Comment on above: 1 Occurrences starting 12/24/2022 until 12/24/2023 XR Lumbar Spine 2-3 Views (Standard) XR Lumbar Spine 2-3 Views (Standard) Imaging Routine Back pain, unspecified back location, unspecified back pain laterality, unspecified chronicity 12/24/2022 4:56 PM EST [facility] End: 12-24-2023 XR Thoracic Spine 3 Views (Standard) XR Thoracic Spine 3 Views (Standard) Imaging Routine Back pain, unspecified back location, unspecified back pain laterality, unspecified chronicity 1 Occurrences starting 12/24/2022 until 12/24/2023 [facility] Comment on above: 1 Occurrences starting 12/24/2022 until 12/24/2023 XR Thoracic Spine 3 Views (Standard) XR Thoracic Spine 3 Views (Standard) Imaging Routine Back pain, unspecified back location, unspecified back pain laterality, unspecified chronicity 12/24/2022 4:55 PM [facility] Immunizations Immunization Date Immunization Notes Care Provider Denise [facility] 12-31-2024 influenza, seasonal, injectable Khadijah Curran MD Work Phone: [facility] 12-31-2024 influenza virus vaccine, unspecified formulation Khadijah Curran MD Work Phone: [facility] 11-28-2023 influenza, injectabl e, quadrivalent, contains preservative Khadijah Curran MD Work Phone: [facility] 11-28-2023 influenza virus vaccine, unspecified formulation Khadijah Curran MD Work Phone: [facility] 06-29-2021 influenza, injectabl e, quadrivalent, contains preservative Ethan Robledo MD Work Phone: [facility] 06-29-2021 influenza virus vaccine, unspecified formulation Viki Hernandez APRN.CNP Work Phone: [facility] 11-22-2019 influenza, injectabl e, quadrivalent, contains preservative Ethan Robledo MD Work Phone: [facility] 07-29-2018 influenza, injectabl e, quadrivalent, contains preservative Ethan Robledo MD Work Phone: [facility] 08-22-2016 influenza, injectabl e, quadrivalent, contains preservative Ethan Robledo MD Work Phone: [facility] 08-19-2016 influenza, injectabl e, quadrivalent, preservative free Dr. Khadijah Curran MD Work Phone: [facility] 08-19-2016 influenza, seasonal, injectable Dr. Khadijah Curran Work Phone: [facility] 08-17-2015 influenza, injectabl e, quadrivalent, contains preservative Ethan Robledo MD Work Phone: [facility] 08-17-2015 pneumococcal conjuga te vaccine, 13 valent Ethan Robledo MD Work Phone: [facility] 11-10-2014 influenza, seasonal, injectable Ethan Robledo MD Work Phone: [facility] Work Phone: 11-18-2013 influenza virus vaccine, unspecified formulation Ethan Robledo MD Work Phone: [facility] Work Phone: 06-30-2012 tetanus toxoid, reduced diphtheria toxoid, and acellular pertussis vaccine, adsorbed Ethan Robledo MD Work Phone: [facility] Payers Date Payer Category Payer Self-pay [id number] 2024 [facility] ELIJAH PINO [facility] [id number] 2024 Unknown [id number] 2019 Private Health Insurance [facility] UMR CHOICE PLUS [id number] 2019-Present [phone] [address] [address] [place] [address] O [id number] 2019 Private Health Insurance [id number] 2019 Private Health Insurance [id number] 2018 Unknown 2013 Unknown ANTHEM [id number] 1965 Unknown [id number] 2.16.840.1.918872.3.579. 2. 1965 Unknown [id number] 2.16.840.1.718815.3.579. 2.71 1965 Unknown [id number] 2.16.840.1.049110.3.579. 2. 1965 Unknown [id number] 2.16.840.1.439475.3.579. 2.717 1965 Unknown [id number] 2.16.840.1.839338.3.579. 2.7 1965 Unknown [id number] 2.16.840.1.298539.3.579. 2.717 1965 Unknown [id number] 2.16.840.1.104586.3.579. 2.356 1965 Unknown [id number] 2.16.840.1.934446.3.579. 2.902 1965 Unknown [id number] 2.16.840.1.533644.3.579. 2.902 1965 Unknown [id number] 2.16.840.1.616936.3.579. 2.902 1965 Unknown [id number] 2.16.840.1.192985.3.579. 2.1069 1965 Unknown [id number] 2.16.840.1.486705.3.579. 2.903 1965 Unknown [id number] 2.16.840.1.566092.3.579. 2.3 1965 Unknown [id number] 2.16.840.1.654505.3.579. 2.903 1965 Unknown [id number] 2.16.840.1.734952.3.579. 2.903 1965 Unknown [id number] 2.16.840.1.924776.3.579. 2.903 1965 Unknown [id number] 2.16.840.1.080882.3.579. 2.90 1965 Unknown [id number] 2.16840.1.853151.3.579. 2.3 1965 Unknown [id number] 2.16840.1.558481.3.579. 2.903 1965 Unknown [id number] 2.16.840.1.940684.3.579. 2.903 Unknown [id number] 2.16.840.1.955869.3.579. 2.462 Unknown [id number] 2.16840.1.677834.3.579. 2.462 Unknown [id number] 2.16840.1.969501.3.579. 2.462 Social History Date Type Detail Facility Start: 10-27-1981 End: 12-31-2024 Tobacco smoking status ORIS Smokes tobacco daily [facility] Work Phone: Start: 10-27-1981 History of tobacco use Cigarette Smoker [facility] Work Phone: Start: 11-10-2014 End: 12-31-2024 Tobacco use and exposure Smokeless tobacco non-user [facility] Work Phone: Start: 03-16-2022 End: 05-27-2025 Alcohol intake Current drinker of alcohol (finding) [facility] Start: 07-29-2018 End: 06-04-2022 Tobacco Comment Cut back to 9-10 cigarettes per day [facility] Start: 1965 Sex Assigned At Not on file [facility] Start: 02-11-2022 End: 02-25-2023 Exposure to SARS-CoV-2 (event) Not sure [facility] Start: 03-23-2022 End: 04-02-2022 Exposure to SARS-CoV-2 (event) Unable to assess [facility] Work Phone: Start: 12-24-2022 End: 03-26-2023 Current smoker Current smoker [facility] Start: 12-24-2022 End: 06-19-2023 Alcohol intake Ex-drinker (finding) [facility] Start: 12-24-2022 End: 01-16-2023 History SDOH Social Connections Get Together 2 [facility] Start: 12-24-2022 History SDOH Financial 5 [facility] Start: 12-24-2022 End: 01-16-2023 History SDOH Food Worry 1 [facility] Start: 01-09-2023 Tobacco smoking status NHIS Unknown if ever smoked [facility] Start: 07-20-2019 Occasional [facility] Start: 07-20-2019 None [facility] Start: 07-20-2019 Spouse/ Significant Other [facility] Start: 02-18-2017 Cigarettes [facility] Start: 1965 Sex Assigned At Female [facility] Start: 12-24-2022 End: 03-26-2023 Social connection and isolation panel [facility] Frequency of Communication with Friends and Family Not on file [facility] (I/We) worried whecolleen er (my/our) food would run out before (I/we) got money to buy more. Never true [facility] Start: 02-11-2022 Gender identity Identifies as female gender (finding) [facility] Start: 02-11-2022 Sexual orientation Heterosexual (finding) [facility] In the past 12 month s, was there a time when you were not able to pay the mortgage or rent on time? No [facility] Goals Date Patient Goal Desired Activity /State Functional Status Date Assessment Result Facility 01-18-2023 Are you deaf, or do you have serious difficulty hearing No 01/18/2023 1:42 PM EDT Diann Chavez RN No [facility] 01-18-2023 Are you blind, or do you have serious difficulty seeing, even when wearing glasses No 01/18/2023 1:42 PM Diann Nam RN No [facility] 01-18-2023 Do you have serious difficulty walking or climbing stairs No 01/18/2023 1:42 PM EDDiann Verma RN No [facility] 01-18-2023 Do you have difficul ty dressing or bathing No 01/18/2023 1:42 PM EDDiann Verma RN No [facility] 01-18-2023 Because of a physica l, mental, or emotional condition, do you have difficulty doing errands alone such as visiting a physician's office or shopping No 01/18/2023 1:42 PM EDDiann Verma RN No [facility] 01-11-2023 Functional status [facility] Work Phone: Mental Status Date Assessment Result Facility 01-18-2023 Because of a physica l, mental, or emotional condition, do you have serious difficulty concentrating, remembering, or making decisions No 01/18/2023 1:42 PM EDDiann Verma RN No [facility] 01-11-2023 Cognitive function Voice/Name [facility] Work Phone: Clinical Notes 06-21-2017 to 05-27-2025 Khadijah Curran MD - 05/27/2025 11:40 AM EDTTelephone Encounter - Gail Savage RN - 05/23/2025 2:56 PM EDTTelephone Encounter - Gail Savage RN - 05/23/2025 2:56 PM EDT Note Date & Type Note Facility 05-27-2025 History of Presen t illness Narrative Chief Complaint No chief complaint on file. HPI Gabby Spence is a 60-year-old female with a history of chronic diarrhea, arthritis, and GERD, presenting for follow-up after a recent visit with a restaurant greeter. Gabby reports chronic diarrhea and diffuse myalgia, particularly in the upper extremities, making it difficult to lift her arms. She was recently evaluated by a restaurant greeter, who performed extensive blood work, and she is awaiting the results. She is scheduled for a colonoscopy on July 15. She inquires about another course of prednisone, noting that it has provided relief in the past. She has previously tried Flexeril, which offered minimal relief, and she expresses a preference against baclofen. She also reports recent onset of heartburn, despite being on pantoprazole. She mentions a history of cardiac issues and expresses a desire to consult a composite engineer. Additionally, she reports a recent episode of blurred vision and pain in her left eye, which she attributes to using an old, unwashed makeup brush. She describes seeing what appeared to be a bug or larva in her eye. A culture was taken, which grew bacteria, but she has since discarded the makeup and is no longer experiencing symptoms. She denies any purulent drainage from the eyes. Past medical history, appointments, medications, allergies reviewed. Previous Medical History PAST MEDICAL HISTORY Diagnosis Date Anxiety Back pain Diastolic dysfunction 10/2017 EF 65%, stage 1 diastolic dysfunction per Echo History of colonoscopy 02/25/2008 Done at [facility] [place]/Dr. Vo Ulcerative colitis, unspecified Ulcerative colitis Previous Surgical History PAST SURGICAL HISTORY Procedure Laterality Date COLONOSCOPY Every 3 years, Dr White in [place] COLONOSCOPY 08/13/2017 EGD, Dr. White, Normal COLONOSCOPY FLX DX W/COLLJ SPEC WHEN PFRMD 08/19/[address] White - info scanned Family History FAMILY HISTORY Problem Relation Age of Onset Cancer Mother Cancer Father Heart disease Brother 3 brothers - 52years old 53 yesr old and 54 years old Patient Allergies ALLERGIES Allergen Reactions Wellbutrin [Bupropi* GI Upset Nausea and GI upset Azulfidine [Sulfasa* Hives Current Medications Current Outpatient Medications on File Prior to Visit Medication Sig gabapentin (NEURONTIN) 600 mg tablet Take 1 tablet by mouth three times a day for 90 days. amLODIPine (NORVASC) 10 mg tablet Take 1 tablet by mouth once daily. Mesalamine (LIALDA) 1.2 gram EC tablet Take 2 tablets by mouth daily with breakfast. escitalopram oxalate (LEXAPRO) 10 mg tablet Take 1 tablet by mouth once daily. lisinopril (ZESTRIL) 10 mg tablet Take 1 tablet by mouth once daily. cyclobenzaprine (FLEXERIL) 10 mg tablet Take 1 tablet by mouth three times a day as needed for muscle spasm. pantoprazole DR (PROTONIX) 40 mg tablet Take 1 tablet by mouth once daily. No current facility-administered medications on file prior to visit. Social History Social History Tobacco Use Smoking status: Every Day Current packs/day: 1.00 Average packs/day: 1 pack/day for 43.6 years (43.6 ttl pk-yrs) Types: Cigarettes Start date: 10/27/1981 Smokeless tobacco: Never Tobacco comments: Cut back to 9-10 cigarettes per day Vaping Use Vaping status: Never Used Substance Use Topics Alcohol use: Yes Comment: once in a while Drug use: No EXAM: [facility] 07/14/2013 General Appearance: Well appearing, alert, in no acute distress, well-hydrated, well nourished.. Eyes: Normal, no erythema or draiange Lungs: Lungs clear to auscultation. No wheezing, rhonchi, rales.. Heart: RRR without murmur, gallop, or rubs. No ectopy. Health Maintenance List HIV Screening Never done Lung Cancer Screening Never done Shingrix Vaccine(1 of 2) Never done Pneumococcal Vaccine: 50+(2 of 2 - PPSV23) due on 10/12/2015 Cervical Cancer Screening due on 11/18/2016 Mammogram Screening due on 02/19/2022 DTaP,Tdap,Td Vaccine(2 - Td or Tdap) due on 06/30/2022 Colorectal Cancer Screening due on 07/26/2025 Influenza Vaccine(1) due on 06/27/2025 Annual PCP Team Chronic Disease Visit due on 12/31/2025 Diabetes Screening due on 01/01/2028 Lipid Screening due on 12/31/2029 RSV Vaccine(1 - 1-dose 75+ series) due on 2040 Hepatitis C Screening Completed Data reviewed Culture in scanned docs 1. Eye drainage (H57.89) No signs of infection or concerning findings on examination. Recent culture showed presence of bacteria, but not causing any issues. Monitor for any changes or worsening symptoms. 2. Ulcerative pancolitis without complication (HCC) (K51.00) Colitis (K52.9) Chronic diarrhea and heartburn. Undergoing extensive evaluation by Dr. Duckworth, including blood work and upcoming colonoscopy on July 15. - Continue current management. - Follow up with Dr. Duckworth for lab results and colonoscopy findings. 3. Chronic midline low back pain, unspecified whether sciatica present (M54.50) Myalgia (M79.10) Persistent pain and myalgia. Previous use of Flexeril provided minimal relief. Patient reports better response to prednisone. - Prescribed a 15-day course of prednisone. - Prescribed Flexeril 10 mg. Follow up prn Medical Decision Making: Problems: Moderate: 1+ chronic illnesses with change Risk: Moderate: Drug management Medical Decision Making Level: 4 - Moderate Khadijah Curran MD documented in this encounter [facility] 05-27-2025 Note HNO ID: [id number] Author: KHADIJAH CURRAN MD Service: ? Author Type: Physician Type: Progress Notes Filed: 05/27/2025 17:46 Note Text: Chief Complaint No chief complaint on file. HPI Gabby Spence is a 60-year-old female with a history of chronic diarrhea, arthritis, and GERD, presenting for follow-up after a recent visit with a restaurant greeter. Gabby reports chronic diarrhea and diffuse myalgia, particularly in the upper extremities, making it difficult to lift her arms. She was recently evaluated by a restaurant greeter, who performed extensive blood work, and she is awaiting the results. She is scheduled for a colonoscopy on July 15. She inquires about another course of prednisone, noting that it has provided relief in the past. She has previously tried Flexeril, which offered minimal relief, and she expresses a preference against baclofen. She also reports recent onset of heartburn, despite being on pantoprazole. She mentions a history of cardiac issues and expresses a desire to consult a composite engineer. Additionally, she reports a recent episode of blurred vision and pain in her left eye, which she attributes to using an old, unwashed makeup brush. She describes seeing what appeared to be a bug or larva in her eye. A culture was taken, which grew bacteria, but she has since discarded the makeup and is no longer experiencing symptoms. She denies any purulent drainage from the eyes. Past medical history, appointments, medications, allergies reviewed. Previous Medical History PAST MEDICAL HISTORY Diagnosis Date Anxiety Back pain Diastolic dysfunction 10/2017 EF 65%, stage 1 diastolic dysfunction per Echo History of colonoscopy 02/25/2008 Done at [facility]/Dr. Vo Ulcerative colitis, unspecified Ulcerative colitis Previous Surgical History PAST SURGICAL HISTORY Procedure Laterality Date COLONOSCOPY Every [address] years, [address] White in [place] COLONOSCOPY 08/13/2017 EGD, Dr. White, Normal COLONOSCOPY FLX DX W/COLLJ SPEC WHEN PFRMD 08/19/[address] White - info scanned Family History FAMILY HISTORY Problem Relation Age of Onset Cancer Mother Cancer Father Heart disease Brother 3 brothers - 52years old 53 yesr old and 54 years old Patient Allergies ALLERGIES Allergen Reactions Wellbutrin [Bupropi* GI Upset Nausea and GI upset Azulfidine [Sulfasa* Hives Current Medications Current Outpatient Medications on File Prior to Visit Medication Sig gabapentin (NEURONTIN) 600 mg tablet Take 1 tablet by mouth three times a day for 90 days. amLODIPine (NORVASC) 10 mg tablet Take 1 tablet by mouth once daily. Mesalamine (LIALDA) 1.2 gram EC tablet Take 2 tablets by mouth daily with breakfast. escitalopram oxalate (LEXAPRO) 10 mg tablet Take 1 tablet by mouth once daily. lisinopril (ZESTRIL) 10 mg tablet Take 1 tablet by mouth once daily. cyclobenzaprine (FLEXERIL) 10 mg tablet Take 1 tablet by mouth three times a day as needed for muscle spasm. pantoprazole DR (PROTONIX) 40 mg tablet Take 1 tablet by mouth once daily. No current facility-administered medications on file prior to visit. Social History Social History Tobacco Use Smoking status: Every Day Current packs/day: 1.00 Average packs/day: 1 pack/day for 43.6 years (43.6 ttl pk-yrs) Types: Cigarettes Start date: 10/27/1981 Smokeless tobacco: Never Tobacco comments: Cut back to 9-10 cigarettes per day Vaping Use Vaping status: Never Used Substance Use Topics Alcohol use: Yes Comment: once in a while Drug use: No EXAM: [facility] 07/14/2013 General Appearance: Well appearing, alert, in no acute distress, well-hydrated, well nourished.. Eyes: Normal, no erythema or draiange Lungs: Lungs clear to auscultation. No wheezing, rhonchi, rales.. Heart: RRR without murmur, gallop, or rubs. No ectopy. Health Maintenance List HIV Screening Never done Lung Cancer Screening Never done Shingrix Vaccine(1 of 2) Never done Pneumococcal Vaccine: 50+(2 of 2 - PPSV23) due on 10/12/2015 Cervical Cancer Screening due on 11/18/2016 Mammogram Screening due on 02/19/2022 DTaP,Tdap,Td Vaccine(2 - Td or Tdap) due on 06/30/2022 Colorectal Cancer Screening due on 07/26/2025 Influenza Vaccine(1) due on 06/27/2025 Annual PCP Team Chronic Disease Visit due on 12/31/2025 Diabetes Screening due on 01/01/2028 Lipid Screening due on 12/31/2029 RSV Vaccine(1 - 1-dose 75+ series) due on 2040 Hepatitis C Screening Completed Data reviewed Culture in scanned docs 1. Eye drainage (H57.89) No signs of infection or concerning findings on examination. Recent culture showed presence of bacteria, but not causing any issues. Monitor for any changes or worsening symptoms. 2. Ulcerative pancolitis without complication (HCC) (K51.00) Colitis (K52.9) Chronic diarrhea and heartburn. Undergoing extensive evaluation by Dr. Duckworth, including blood work and (more content not included)... [facility] 05-23-2025 Telephone encounter Note Called Pt back and she only wanted to schedule with Dr Curran Pt scheduled on 05/27/25 at 1140. Gail Savage, MILO [facility] 05-23-2025 Miscellaneous Notes Called Pt back and she only wanted to schedule with Dr Curran Pt scheduled on 05/27/25 at 1140. Gail Savage, RN Pt called and is notified of providers message and instructions. Pt states she has blurred vision sometimes. Her eyes especially her L eye is itchy and runny. I let her know provider said she would need to be seen by PCP, UC, or eye doctor. Pt wants to know what the other viruses were. I told her provider didn't say. 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 Gail Savage RN At least one is just a normal skin bacteria. We usually don't do eye cultures because they may not be real accurate. What kind of symptoms is she having? Has she had anyone other than the GASTROENTEROLOGY office(who would not know what they are looking at) see the eye. Likely if having a lot of symptoms, needs to see one of us, urgent care or her eye doctor. Pt called in and reports Dr Duckworth's nurse faxed of labs for provider to look at. They are scanned in t on 05/20/[address] Duckworth, then 05/23/25 external labs eye culture. She said they told her she is growing three different organisms in her eye and they weren't sure what they were. She states she hopes the provider can call in and antibiotic for her today. Please call and advise. Gail Savage RN documented in this encounter [facility] 05-23-2025 Telephone encounter Note Pt called and is notified of providers message and instructions. Pt states she has blurred vision sometimes. Her eyes especially her L eye is itchy and runny. I let her know provider said she would need to be seen by PCP, UC, or eye doctor. Pt wants to know what the other viruses were. I told her provider didn't say. 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 Gail Savage RN [facility] 05-23-2025 Telephone encounter Note At least one is just a normal skin bacteria. We usually don't do eye cultures because they may not be real accurate. What kind of symptoms is she having? Has she had anyone other than the GASTROENTEROLOGY office(who would not know what they are looking at) see the eye. Likely if having a lot of symptoms, needs to see one of us, urgent care or her eye doctor. [facility] Work Phone: 05-23-2025 Telephone encounter Note Pt called in and reports Dr Duckworth's nurse faxed of labs for provider to look at. They are scanned in t on 05/20/[address] Duckworth, then 05/23/25 external labs eye culture. She said they told her she is growing three different organisms in her eye and they weren't sure what they were. She states she hopes the provider can call in and antibiotic for her today. Please call and advise. Gail Savage RN [facility] 05-20-2025 Evaluation note Diagnosis Onset Date Resolution Chronic pain chronic May 20, 025 3:15pm Ulcerative colitis chronic April 272024 3:15pm [facility] Work Phone: 1(142) 220-173407-17-2025 Telephone encounter Note* Telephone Encounter - Claire Virk MA - 05/12/2025 2:26 PM EDT Pt notified. Referral faxed to [place] [facility] Duckworth with Appt 05/20/25. Claire Virk MA [facility]07-17-2025 Miscellaneous Notes* Telephone Encounter - Claire Virk MA - 05/12/2025 2:26 PM EDT Pt notified. Referral faxed to [facility] Dr. Duckworth with Appt 05/20/25. Claire Virk MA * Telephone Encounter - Khadijah Curran MD - 05/12/2025 2:07 PM EDT OK for Gi referral as requested Will hold off on prednisone as I see she is going to the ER for evaluation Khadijah Curran MD * Telephone Encounter - Jannie Donaldson RN - 05/12/2025 12:40 PM EDT See Nurse Triage note * Telephone Encounter - Jannie Donaldson RN - 05/12/2025 10:24 AM EDT Patient calls and states that she has appointment with Dr. Duckworth on 05/20/2025. Patient has been having chronic Diarrhea issues and she is wanting to get colonoscopy done through [facility]. Patient is asking if provider can place referral and then fax referral to [facility]? Patient is also asking if provider can send in prescription for prednisone due to her chronic diarrhea issue? Please review and advise, Jannie Donaldson RN documented in this encounterWay[facility]07-[facility]25 Telephone encounter Note * Telephone Encounter - Khadijah Curran MD - 05/12/2025 2:08 PM EDT I agree with the advice given Khadijah uCrran MD [facility]07-17-2025 Miscellaneous Notes* Telephone Encounter - Khadijah Curran MD - 05/12/2025 2:08 PM EDT I agree with the advice given Khadijah Curran MD * Telephone Encounter - Jannie Donaldson RN - 05/12/2025 12:26 PM EDT Patient call in for vomiting and increase heart rate (79-125 resting) BP 106/76. Patient has been vomiting x 2 days (Spouse states that patient has been making herself vomit). Unable to keep anythingdown. Nurse Triage assessment completed with protocol recommending for disposition of Go to ED now. Patient voiced understanding. Care advice reviewed with patient, patient stated understanding. Reason for Disposition [1] SEVERE vomiting (e.g., 6 or more times/day) AND [2] present > 8 hours (Exception: Patient sounds well, is drinking liquids, does not sound dehydrated, and vomiting has lasted less than 24 hours.) Answer Assessment - Initial Assessment Questions 1. DESCRIPTION: Fast 2. ONSET: Patient states that she checked heart rate this morning; 3. DURATION: Pulse has been fluctuating. 4. PATTERN Off and On 5. TAP: Denies 6. HEART RATE: Pulse is 79- 116- 125 7. RECURRENT SYMPTOM: Denies 8. CAUSE: Dehydration 9. CARDIAC HISTORY: Family history 10. OTHER SYMPTOMS: Dizzy, sometimes gets kind of winded. Answer Assessment - Initial Assessment Questions 1. VOMITING SEVERITY: Patient has been vomiting and unable to keep anything down for the past couple of days; Per spouse in the background patient has been continuously making herself vomit. 2. ONSET: 2 days ago 3. FLUIDS: Patient states that she has been drinking water; Spouse states that she drinks water but then forces herself to vomit. 4. DIARRHEA: Patient states that she has chronic diarrhea 5. CAUSE: Unsure 6. HYDRATION STATUS: Dizziness 7. OTHER SYMPTOMS: Gets winded. Protocols used: Heart Rate and Heartbeat [id number], [id number] documented in this encounterWayne Hospital07-17-2025 Telephone encounter Note * Telephone Encounter - Khadijah Curran MD - 05/12/2025 2:07 PM EDT OK for Gi referral as requested Will hold off on prednisone as I see she is going to the ER for evaluation Khadijah Curran MD [facility]07-17-[facility]25 Telephone encounter Note* Telephone Encounter - Jannie Donaldson RN - 05/12/2025 12:40 PM EDT See Nurse Triage note [facility]07-17-[facility] Telephone encounter Note* Telephone Encounter - Jannie Donaldson RN - 05/12/2025 12:26 PM EDT Patient call in for vomiting and increase heart rate (79-125 resting) BP 106/76. Patient has been vomiting x 2 days (Spouse states that patient has been making herself vomit). Unable to keep anythingdown. Nurse Triage assessment completed with protocol recommending for disposition of Go to ED now. Patient voiced understanding. Care advice reviewed with patient, patient stated understanding. Reason for Disposition [1] SEVERE vomiting (e.g., 6 or more times/day) AND [2] present > 8 hours (Exception: Patient sounds well, is drinking liquids, does not sound dehydrated, and vomiting has lasted less than 24 hours.) Answer Assessment - Initial Assessment Questions 1. DESCRIPTION: Fast 2. ONSET: Patient states that she checked heart rate this morning; 3. DURATION: Pulse has been fluctuating. 4. PATTERN Off and On 5. TAP: Denies 6. HEART RATE: Pulse is 79- 116- 125 7. RECURRENT SYMPTOM: Denies 8. CAUSE: Dehydration 9. CARDIAC HISTORY: Family history 10. OTHER SYMPTOMS: Dizzy, sometimes gets kind of winded. Answer Assessment - Initial Assessment Questions 1. VOMITING SEVERITY: Patient has been vomiting and unable to keep anything down for the past couple of days; Per spouse in the background patient has been continuously making herself vomit. 2. ONSET: 2 days ago 3. FLUIDS: Patient states that she has been drinking water; Spouse states that she drinks water but then forces herself to vomit. 4. DIARRHEA: Patient states that she has chronic diarrhea 5. CAUSE: Unsure 6. HYDRATION STATUS: Dizziness 7. OTHER SYMPTOMS: Gets winded. Protocols used: Heart Rate and Heartbeat [id number], [id number] [facility] Telephone encounter Note* Telephone Encounter - Jannie Donaldson RN - 05/12/2025 10:24 AM EDT Patient calls and states that she has appointment with Dr. Duckworth on 05/20/2025. Patient has been having chronic Diarrhea issues and she is wanting to get colonoscopy done through [facility]. Patient is asking if provider can place referral and then fax referral to [facility]? Patient is also asking if provider can send in prescription for prednisone due to her chronic diarrhea issue? Please review and advise, Jannie Donaldson RN [facility] Telephone encounter Note* Telephone Encounter - Mathieu Velasco APRN.CNP - 05/02/2025 11:51 AM EDT The following approved medication requests have been transmitted electronically. Requested Prescriptions Pending Prescriptions Disp Refills gabapentin (NEURONTIN) 600 mg tablet 90 tablet 2 Sig: Take 1 tablet by mouth three times a day for 90 days. Mathieu Velasco APRN.CNP [facility]07-07-2025 Miscellaneous Notes* Telephone Encounter - Mathieu Velasco APRN.CNP - 05/02/2025 11:51 AM EDT The following approved medication requests have been transmitted electronically. Requested Prescriptions Pending Prescriptions Disp Refills gabapentin (NEURONTIN) 600 mg tablet 90 tablet 2 Sig: Take 1 tablet by mouth three times a day for 90 days. Mathieu Velasco APRN.CNP * Telephone Encounter - Krista Abad - 05/02/2025 8:43 AM EDT Prescription Refill Information The patient has been identified by name and date of : Yes Caregiver verified no other encounters exist for this prescription request: Yes Caregiver confirmed with patient/requestor that no other refills are due, in the near future, with this provider at this time: Yes The last office visit in the department: 12/31/24 Does the patient have a future office visit with this provider/department: No Requested Prescriptions Pending Prescriptions Disp Refills gabapentin (NEURONTIN) 600 mg tablet 90 tablet 2 Sig: Take 1 tablet by mouth three times a day for 90 days. Krista Sweet [facility] May 02, 2025 8:44 AM documented in this encounterWayne Hospital07-07-2025 Telephone encounter Note * Telephone Encounter - Bartlett Krista Morris - 05/02/2025 8:43 AM EDT Prescription Refill Information The patient has been identified by name and date of : Yes Caregiver verified no other encounters exist for this prescription request: Yes Caregiver confirmed with patient/requestor that no other refills are due, in the near future, with this provider at this time: Yes The last office visit in the department: 12/31/24 Does the patient have a future office visit with this provider/department: No Requested Prescriptions Pending Prescriptions Disp Refills gabapentin (NEURONTIN) 600 mg tablet 90 tablet 2 Sig: Take 1 tablet by mouth three times a day for 90 days. Krista Sweet [facility] May 02, 2025 8:44 AM [facility]04-15-2025 Telephone encounter Note* Telephone Encounter - Mathieu Velasco APRN.CNP - 02/08/2025 8:57 AM EDT The following approved medication requests have been transmitted electronically. Requested Prescriptions Pending Prescriptions Disp Refills gabapentin (NEURONTIN) 600 mg tablet 90 tablet 2 Sig: Take 1 tablet by mouth three times a day for 90 days. Mathieu Velasco APRN.CNP [facility]04-15-2025 Miscellaneous Notes* Telephone Encounter - Mathieu Velasco APRN.CNP - 02/08/2025 8:57 AM EDT The following approved medication requests have been transmitted electronically. Requested Prescriptions Pending Prescriptions Disp Refills gabapentin (NEURONTIN) 600 mg tablet 90 tablet 2 Sig: Take 1 tablet by mouth three times a day for 90 days. Mathieu Velasco APRN.CNP * Telephone Encounter - Phoebe Seymour - 02/08/2025 8:13 AM EDT Prescription Refill Information The patient has been identified by name and date of : Yes Caregiver verified no other encounters exist for this prescription request: Yes Caregiver confirmed with patient/requestor that no other refills are due, in the near future, with this provider at this time: Yes The last office visit in the department: 12-31-24 Does the patient have a future office visit with this provider/department: No Requested Prescriptions Pending Prescriptions Disp Refills gabapentin (NEURONTIN) 600 mg tablet 90 tablet 2 Sig: Take 1 tablet by mouth three times a day for 90 days. Phoebe Morris February 08, 2025 8:14 AM documented in this encounterWayne Hospital04-15-2025 Telephone encounter Note * Telephone Encounter - Phoebe Seymour - 02/08/2025 8:13 AM EDT Prescription Refill Information The patient has been identified by name and date of : Yes Caregiver verified no other encounters exist for this prescription request: Yes Caregiver confirmed with patient/requestor that no other refills are due, in the near future, with this provider at this time: Yes The last office visit in the department: 12-31-24 Does the patient have a future office visit with this provider/department: No Requested Prescriptions Pending Prescriptions Disp Refills gabapentin (NEURONTIN) 600 mg tablet 90 tablet 2 Sig: Take 1 tablet by mouth three times a day for 90 days. Phoebe Morris February 08, 2025 8:14 AM [facility]04-01-2025 NotePatient Outreach (FAMPWS) GABBY SPENCE ([id number]) 1965 F Date Time Provider Department 01/25/25 KHADIJAH CURRAN FAMPWS During your visit today, we recorded the following information about you: Allergies As of Date: 01/25/2025 Noted Allergy Reaction WELLBUTRIN (BUPROPION HCL) 04/21/2019 8 - GI Upset Comments: Nausea and GI upset AZULFIDINE (SULFASALAZINE) 09/15/2007 4 - Hives Date Reviewed: 12/31/2024 Reviewed by: Claire Virk MA - Fully Assessed Visit Diagnosis:Encounter for screening mammogram for breast cancer [Z12.31] Order(s):[facility]CRE[facility] [[id number]] Order #: [id number] FUTURE Prescriptions as of 02/25/2025 - gabapentin (NEURONTIN) 600 mg tablet Take 1 tablet by mouth three times a day for 90 days. - amLODIPine (NORVASC) 10 mg tablet Take 1 tablet by mouth once daily. - Mesalamine (LIALDA) 1.2 gram EC tablet Take 2 tablets by mouth daily with breakfast. - escitalopram oxalate (LEXAPRO) 10 mg tablet Take 1 tablet by mouth once daily. - lisinopril (ZESTRIL) 10 mg tablet Take 1 tablet by mouth once daily. - cyclobenzaprine (FLEXERIL) 10 mg tablet Take 1 tablet by mouth three times a day as needed for muscle spasm. - pantoprazole DR GilmorePROTONIX) 40 mg tablet Take 1 tablet by mouth once daily. Problem List As Of Date 01/25/2025 Noted Resolved Ulcerative colitis (HCC) [K51.90] 09/15/2007 Anxiety and depression [F41.9, F32.A] 11/30/2009 Back Pain [M54.9] 11/30/2009 Essential hypertension [I10] 11/10/2014 Smoker [F17.200] 11/22/2019 Hypotension [I95.9] 01/15/2023 Dehydration [E86.0] 01/15/2023 01/18/2023 Severe sepsis (HCC) [A41.9, R65.20] 01/15/2023 Colitis [K52.9] 01/16/2023 BRIJESH (acute kidney injury) (HCC) [N17.9] 01/16/2023 01/18/2023 Chronic low back pain [M54.50, G89.29] 01/16/2023 Encounter Status:Closed by Guang Lian Shi Dai GlobiliUSEKarley on 02/25/25[facility] 01-24-2025 Telephone encounter Note* Telephone Encounter - Mathieu Velasco APRN.CNP - 01/24/2025 10:58 AM EDT The following approved medication requests have been transmitted electronically. Requested Prescriptions Pending Prescriptions Disp Refills amLODIPine (NORVASC) 10 mg tablet 90 tablet 1 Sig: Take 1 tablet by mouth once daily. Mathieu Velasco APRN.CNP [facility]03-31-2025 Miscellaneous Notes* Telephone Encounter - Mathieu Velasco APRN.CNP - 01/24/2025 10:58 AM EDT The following approved medication requests have been transmitted electronically. Requested Prescriptions Pending Prescriptions Disp Refills amLODIPine (NORVASC) 10 mg tablet 90 tablet 1 Sig: Take 1 tablet by mouth once daily. Mathieu Velasco APRN.CNP * Telephone Encounter - Anastasiya Zayas - 01/24/2025 8:30 AM EDT Patient has been identified by name and date of : Yes, Patient phones for refill(s): Requested Prescriptions Pending Prescriptions Disp Refills amLODIPine (NORVASC) 10 mg tablet 90 tablet 1 Sig: Take 1 tablet by mouth once daily. Date of last office visit in primary care: 12/31/2024 Date of next office visit in primary care: Visit date not found Please advise. Thank you. Anastasiya Zayas. documented in this encounterWayne Hospital03-31-2025 Telephone encounter Note * Telephone Encounter - Anastasiya Zayas - 01/24/2025 8:30 AM EDT Patient has been identified by name and date of : Yes, Patient phones for refill(s): Requested Prescriptions Pending Prescriptions Disp Refills amLODIPine (NORVASC) 10 mg tablet 90 tablet 1 Sig: Take 1 tablet by mouth once daily. Date of last office visit in primary care: 12/31/2024 Date of next office visit in primary care: Visit date not found Please advise. Thank you. Anastasiya Zayas. [facility]03-24-2025 Telephone encounter Note* Telephone Encounter - Khadijah Curran MD - 01/17/2025 12:41 PM EDT OK to refill as ordered Khadijah Curran MD [facility]03-24-2025 Miscellaneous Notes* Telephone Encounter - Khadijah Curran MD - 01/17/2025 12:41 PM EDT OK to refill as ordered Khadijah Curran MD * Telephone Encounter - Kailee Del Rio - 01/15/2025 8:21 AM EDT Prescription Refill Information The patient has been identified by name and date of : Yes Caregiver verified no other encounters exist for this prescription request: Yes Caregiver confirmed with patient/requestor that no other refills are due, in the near future, with this provider at this time: Yes The last office visit in the department: 12-31-24 Does the patient have a future office visit with this provider/department: Yes Requested Prescriptions Pending Prescriptions Disp Refills predniSONE (DELTASONE) 10 mg tablet 35 tablet 0 Sig: Take 4 tabs daily x5 days, then 2 tabs daily for 5 days, then 1 tab daily for 5 days. Kailee Morris January 15, 2025 8:21 AM documented in this encounterWayne Hospital03-22-2025 Telephone encounter Note * Telephone Encounter - Kailee Del Rio - 01/15/2025 8:21 AM EDT Prescription Refill Information The patient has been identified by name and date of : Yes Caregiver verified no other encounters exist for this prescription request: Yes Caregiver confirmed with patient/requestor that no other refills are due, in the near future, with this provider at this time: Yes The last office visit in the department: 12-31-24 Does the patient have a future office visit with this provider/department: Yes Requested Prescriptions Pending Prescriptions Disp Refills predniSONE (DELTASONE) 10 mg tablet 35 tablet 0 Sig: Take 4 tabs daily x5 days, then 2 tabs daily for 5 days, then 1 tab daily for 5 days. Kailee Morris January 15, 2025 8:21 AM [facility]03-07-[facility]25 History of Present illness Narrative* Khadijah Curran MD - 12/31/2024 2:40 PM EST Chief Complaint Patient presents with: Medication Follow-up Immunizations: Flu vaccination HPI Gabby Spence is a 59 year old female who presents here today for medication follow up. Working at [employer] in [place]. She loves it. She quit working at [employer] after about 30 years there. Smoking about 8 cigarettes a day. No urinary issues. Has chronic GI issues. Has been having mores issues with diarrhea. Would like a dose of prednisone to help calm her colon down. No longer using Lialda 1.2 gram 2 pills daily which would help some with the diarrhea. She feels like a lot of her bowel issues are stress related. Has not followed with GI for a while; has a doctor in [place] that she would like to follow with; was seen by her when hospitalized. Taking Protonix 40 mg daily. JOSE/Depression: Taking Lexapro 5 mg daily. She feels she is doing well on the Lexapro but would like to increase the dosage. States she would like to get on Ativan or something like that to help withher nerves but was advised we do not use those medications anymore. Pain: Chronic back pain, no longer on [place]. Taking Gabapentin 600 mg 1 pill TID and Baclofen 10 mgprn. HTN: Taking Norvasc 10 mg daily. Checking BP at home with readings running 167/98. No chest pains, dizziness, or SOB. She was on Lisinopril in the past but believes that was stopped several years agowhen she was hospitalized. Past medical history, appointments, medications, allergies reviewed. Previous Medical History PAST MEDICAL HISTORY Diagnosis Date Anxiety Back pain Diastolic dysfunction 10/2017 EF 65%, stage 1 diastolic dysfunction per Echo History of colonoscopy 02/25/2008 Done at [facility] [place]/Dr. Vo Ulcerative colitis, unspecified Ulcerative colitis Previous Surgical History PAST SURGICAL HISTORY Procedure Laterality Date COLONOSCOPY Every 3 years, Dr White in [place] COLONOSCOPY 08/13/2017 EGD, Dr. White, Normal COLONOSCOPY FLX DX W/COLLJ SPEC WHEN PFRMD 08/19/[address] White - info scanned Family History FAMILY HISTORY Problem Relation Age of Onset Cancer Mother Cancer Father Heart disease Brother 3 brothers - 52years old 53 yesr old and 54 years old Patient Allergies ALLERGIES Allergen Reactions Wellbutrin [Bupropi* GI Upset Nausea and GI upset Azulfidine [Sulfasa* Hives Current Medications Current Outpatient Medications on File Prior to Visit Medication Sig pantoprazole DR (PROTONIX) 40 mg tablet Take 1 tablet by mouth once daily. gabapentin (NEURONTIN) 600 mg tablet Take 1 tablet by mouth three times a day for 90 days. baclofen 10 mg tablet Take 1 tablet by mouth three times a day as needed (muscle spasms). amLODIPine (NORVASC) 10 mg tablet Take 1 tablet by mouth once daily. escitalopram oxalate (LEXAPRO) 5 mg tablet Take 1 tablet by mouth once daily. Mesalamine (LIALDA) 1.2 gram EC tablet Take 2 tablets by mouth daily with breakfast. No current facility-administered medications on file prior to visit. Social History Social History Tobacco Use Smoking status: Every Day Current packs/day: 1.00 Average packs/day: 1 pack/day for 43.2 years (43.2 ttl pk-yrs) Types: Cigarettes Start date: 10/27/1981 Smokeless tobacco: Never Tobacco comments: Cut back to 9-10 cigarettes per day Vaping Use Vaping status: Never Used Substance Use Topics Alcohol use: Yes Comment: once in a while Drug use: No EXAM: BP 146/88 Pulse 82 Resp 16 Wt 90.8 kg (200 lb 2.8 oz) LMP 07/14/2013 BMI 31.35 kg/m General Appearance: Well appearing, alert, in no acute distress, well-hydrated, well nourished. andOverweight. Lungs: Lungs clear to auscultation. No wheezing, rhonchi, rales.. Heart: RRR without murmur, gallop, or rubs. No ectopy. Abdomen: soft, increased abd sounds, minimal mid to lower tenderness. Health Maintenance List HIV Screening Never done BP Controlled (<130/80) Never done Lung Cancer Screening Never done Shingrix Vaccine(1 of 2) Never done Pneumococcal Vaccine: 50+(2 of 2 - PPSV23) due on 10/12/2015 Cervical Cancer Screening due on 11/18/2016 Mammogram Screening due on 02/19/2022 DTaP,Tdap,Td Vaccine(2 - Td or Tdap) due on 06/30/2022 Influenza Vaccine(1) due on 06/27/2024 Covid-19 Vaccine( - season) due on 06/27/2024 Annual PCP Team Chronic Disease Visit due on 11/28/2024 Colorectal Cancer Screening due on 07/26/2025 Diabetes Screening due on 11/28/2026 Lipid Screening due on 07/15/2028 Hepatitis C Screening Completed Data reviewed None ASSESSMENT/PLAN: 1. Essential hypertension - ICD9: 401.9, ICD10: I10 (primary diagnosis) - Worsening control - Continue current medications - Start lisinopril - Recommend home blood pressure monitoring, to bring results to next visit - Encouraged sodium restriction, DASH or Mediterranean diet - Recommend regular aerobic exercise 2. Need for influenza vaccination - ICD9: V04.81, ICD10: Z23 - INFLUENZA VACCINE, AGE 6MO-64YR, TRIVALENT (AFLURIA, FLULAVAL, FLUVIRIN, FLUZONE) 3. Ulcerative pancolitis without complication (HCC) - ICD9: 556.6, ICD10: K51.00 Rx for Lialda sent Short 15 day taper prednisone - MESALAMINE 1.2 GRAM TABLET,DELAYED RELEASE 4. Anxiety and depression - ICD9: 300.00, 311, ICD10: F41.9, F32.A Increase Lexapro to 10 mg daily - ESCITALOPRAM 10 MG TABLET 5. Chronic midline low back pain, unspecified whether sciatica present - ICD9: 724.2, 338.29, ICD10: M54.50, G89.29 Continue current medications. Stop Baclofen Start Flexeril 6. Smoker - ICD9: 305.1, ICD10: F17.200 - Cessation encouraged. - Physiologic and physical aspects of tobacco addiction as well as strategies for quitting were discussed. - Counseling was given focusing on the harmful effects of this addiction especially given the patient's medical condition(s) which will be worsened because of the chemicals in tobacco. - Counseling was given 7. Colitis - ICD9: 558.9, ICD10: K52.9 Rx for Lialda sent Short 15 day taper prednisone Call if she needs referral to GI in [place] Follow up in 1 months. Will notify of lab results I agree with the Chief Complaint, ROS, and Past Histories independently gathered by the clinical it application support analyst and the remaining scribed note accurately describes my personal service to the patient. Medical Decision Making: Problems: Moderate: 2+ stable chronic illnesses Data: Unique test(s) ordered: 3+ Risk: Moderate: Drug management Medical Decision Making Level: 4 - Moderate Khadijah Curran MD The documentation for this note was completed by Claire Virk MA acting as scribe for Khadijah Curran MD. December 31, 2024 2:55 PM. Claire Virk MA documented in this encounterWayne Hospital03-07-2025 NoteHNO ID: [id number] Author: KHADIJAH CURRAN MD Service: ? Author Type: Physician Type: Progress Notes Filed: 12/31/2024 16:06 Note Text: Chief Complaint Patient presents with: Medication Follow-up Immunizations: Flu vaccination HPI Gabby Spence is a 59 year old female who presents here today for medication follow up. Working at [employer] in [place] [employer]. She loves it. She quit working at [employer] after about 30 years there. Smoking about 8 cigarettes a day. No urinary issues. Has chronic GI issues. Has been having mores issues with diarrhea. Would like a dose of prednisone to help calm her colon down. No longer using Lialda 1.2 gram 2 pills daily which would help some with the diarrhea. She feels like a lot of her bowel issues are stress related. Has not followed with GI for a while; has a doctor in [place] that she would like to follow with; was seen by her when hospitalized. Taking Protonix 40 mg daily. JOSE/Depression: Taking Lexapro 5 mg daily. She feels she is doing well on the Lexapro but would like to increase the dosage. States she would like to get on Ativan or something like that to help with her nerves but was advised we do not use those medications anymore. Pain: Chronic back pain, no longer on [place]. Taking Gabapentin 600 mg 1 pill TID and Baclofen 10 mg prn. HTN: Taking Norvasc 10 mg daily. Checking BP at home with readings running 167/98. No chest pains, dizziness, or SOB. She was on Lisinopril in the past but believes that was stopped several years ago when she was hospitalized. Past medical history, appointments, medications, allergies reviewed. Previous Medical History PAST MEDICAL HISTORY Diagnosis Date Anxiety Back pain Diastolic dysfunction 10/2017 EF 65%, stage 1 diastolic dysfunction per Echo History of colonoscopy 02/25/2008 Done at [facility]/Dr. Vo Ulcerative colitis, unspecified Ulcerative colitis Previous Surgical History PAST SURGICAL HISTORY Procedure Laterality Date COLONOSCOPY Every 3 years, [address] White in [place] COLONOSCOPY 08/13/2017 EGD, Dr. White, Normal COLONOSCOPY FLX DX W/COLLJ SPEC WHEN PFRMD 08/19/[address] White - info scanned Family History FAMILY HISTORY Problem Relation Age of Onset Cancer Mother Cancer Father Heart disease Brother 3 brothers - 52years old 53 yesr old and 54 years old Patient Allergies ALLERGIES Allergen Reactions Wellbutrin [Bupropi* GI Upset Nausea and GI upset Azulfidine [Sulfasa* Hives Current Medications Current Outpatient Medications on File Prior to Visit Medication Sig pantoprazole DR (PROTONIX) 40 mg tablet Take 1 tablet by mouth once daily. gabapentin (NEURONTIN) 600 mg tablet Take 1 tablet by mouth three times a day for 90 days. baclofen 10 mg tablet Take 1 tablet by mouth three times a day as needed (muscle spasms). amLODIPine (NORVASC) 10 mg tablet Take 1 tablet by mouth once daily. escitalopram oxalate (LEXAPRO) 5 mg tablet Take 1 tablet by mouth once daily. Mesalamine (LIALDA) 1.2 gram EC tablet Take 2 tablets by mouth daily with breakfast. No current facility-administered medications on file prior to visit. Social History Social History Tobacco Use Smoking status: Every Day Current packs/day: 1.00 Average packs/day: 1 pack/day for 43.2 years (43.2 ttl pk-yrs) Types: Cigarettes Start date: 10/27/1981 Smokeless tobacco: Never Tobacco comments: Cut back to 9-10 cigarettes per day Vaping Use Vaping status: Never Used Substance Use Topics Alcohol use: Yes Comment: once in a while Drug use: No EXAM: BP 146/88 Pulse 82 Resp 16 Wt 90.8 kg (200 lb 2.8 oz) LMP 07/14/2013 BMI 31.35 kg/m? General Appearance: Well appearing, alert, in no acute distress, well-hydrated, well nourished. and Overweight. Lungs: Lungs clear to auscultation. No wheezing, rhonchi, rales.. Heart: RRR without murmur, gallop, or rubs. No ectopy. Abdomen: soft, increased abd sounds, minimal mid to lower tenderness. Health Maintenance List HIV Screening Never done BP Controlled (<130/80) Never done Lung Cancer Screening Never done Shingrix Vaccine(1 of 2) Never done Pneumococcal Vaccine: 50+(2 of 2 - PPSV23) due on 10/12/2015 Cervical Cancer Screening due on 11/18/2016 Mammogram Screening due on 02/19/2022 DTaP,Tdap,Td Vaccine(2 - Td or Tdap) due on 06/30/2022 Influenza Vaccine(1) due on 06/27/2024 Covid-19 Vaccine(3 - season) due on 06/27/2024 Annual PCP Team Chronic Disease Visit due on 11/28/2024 Colorectal Cancer Screening due on 07/26/2025 Diabetes Screening due on 11/28/2026 Lipid Screening due on 07/15/2028 Hepatitis C Screening Completed Data reviewed None ASSESSMENT/PLAN: 1. Essential hypertension - ICD9: 401.9, ICD10: I10 (primary diagnosis) - Worsening control - Continue current medications - Start lisinopril - Recommend home blood pressure monitoring, to bring results to (more content not included)...[facility]03-03-2025 Telephone encounter Note* Telephone Encounter - Khadijah Curran MD - 12/27/2024 12:14 PM EST OK to refill as ordered Khadijah Curran MD [facility]03-03-2025 Miscellaneous Notes* Telephone Encounter - Khadijah Curran MD - 12/27/2024 12:14 PM EST OK to refill as ordered Khadijah Curran MD * Telephone Encounter - Beth Lopez - 12/27/2024 8:19 AM EST Patient has been identified by name and date of : Yes Last office visit in this department: 11/28/2023 RX INSTRUCTIONS: Patient aware RX will be sent to pharmacy. No need to notify patient. Patient phones requesting refills as follows: Requested Prescriptions Pending Prescriptions Disp Refills pantoprazole DR (PROTONIX) 40 mg tablet 30 tablet 11 Please review and advise. Beth Morris [facility]03[facility] Telephone encounter Note * Telephone Encounter - Beth Lopez - 12/27/2024 8:19 AM EST Patient has been identified by name and date of : Yes Last office visit in this department: 11/28/2023 RX INSTRUCTIONS: Patient aware RX will be sent to pharmacy. No need to notify patient. Patient phones requesting refills as follows: Requested Prescriptions Pending Prescriptions Disp Refills pantoprazole DR (PROTONIX) 40 mg tablet 30 tablet 11 Please review and advise. Beth Morris [facility] Work Phone: 1(756) 595-185201-24-2025 Telephone encounter Note* Telephone Encounter - Mathieu Velasco APRN.CNP - 11/19/2024 9:57 AM EST The following approved medication requests have been transmitted electronically. Requested Prescriptions Pending Prescriptions Disp Refills gabapentin (NEURONTIN) 600 mg tablet 90 tablet 2 Sig: Take 1 tablet by mouth three times a day for 90 days. Mathieu Velasco APRN.CNP [facility]01-24-2025 Miscellaneous Notes* Telephone Encounter - Mathieu Velasco APRN.CNP - 11/19/2024 9:57 AM EST The following approved medication requests have been transmitted electronically. Requested Prescriptions Pending Prescriptions Disp Refills gabapentin (NEURONTIN) 600 mg tablet 90 tablet 2 Sig: Take 1 tablet by mouth three times a day for 90 days. Mathieu Velasco APRN.CNP * Telephone Encounter - Krista Abad - 11/19/2024 9:27 AM EST Prescription Refill Information The patient has been identified by name and date of : Yes Caregiver verified no other encounters exist for this prescription request: Yes Caregiver confirmed with patient/requestor that no other refills are due, in the near future, with this provider at this time: Yes The last office visit in the department: 11/28/23 Does the patient have a future office visit with this provider/department: No Requested Prescriptions Pending Prescriptions Disp Refills gabapentin (NEURONTIN) 600 mg tablet 90 tablet 2 Sig: Take 1 tablet by mouth three times a day for 90 days. Krista Sweet [facility] November 19, 2024 9:27 AM documented in this encounterWayne Hospital01-24-2025 Telephone encounter Note * Telephone Encounter - Bartlett Krista Morris - 11/19/2024 9:27 AM EST Prescription Refill Information The patient has been identified by name and date of : Yes Caregiver verified no other encounters exist for this prescription request: Yes Caregiver confirmed with patient/requestor that no other refills are due, in the near future, with this provider at this time: Yes The last office visit in the department: 11/28/23 Does the patient have a future office visit with this provider/department: No Requested Prescriptions Pending Prescriptions Disp Refills gabapentin (NEURONTIN) 600 mg tablet 90 tablet 2 Sig: Take 1 tablet by mouth three times a day for 90 days. Krista Sweet [facility] November 19, 2024 9:27 AM [facility]11-04-2024 Telephone encounter Note* Telephone Encounter - Mathieu Velasco APRN.CNP - 08/30/2024 8:27 AM EST The following approved medication requests have been transmitted electronically. Requested Prescriptions Pending Prescriptions Disp Refills gabapentin (NEURONTIN) 600 mg tablet 90 tablet 2 Sig: Take 1 tablet by mouth three times a day for 90 days. Mathieu Velasco APRN.CNP [facility]11-04-2024 Miscellaneous Notes* Telephone Encounter - Mathieu Velasco APRN.CNP - 08/30/2024 8:27 AM EST The following approved medication requests have been transmitted electronically. Requested Prescriptions Pending Prescriptions Disp Refills gabapentin (NEURONTIN) 600 mg tablet 90 tablet 2 Sig: Take 1 tablet by mouth three times a day for 90 days. Mathieu Velasco APRN.CNP * Telephone Encounter - Phoebe Seymour - 08/30/2024 8:03 AM EST Prescription Refill Information The patient has been identified by name and date of : Yes Caregiver verified no other encounters exist for this prescription request: Yes Caregiver confirmed with patient/requestor that no other refills are due, in the near future, with this provider at this time: Yes The last office visit in the department: 11-28-23 Does the patient have a future office visit with this provider/department: No Requested Prescriptions Pending Prescriptions Disp Refills gabapentin (NEURONTIN) 600 mg tablet 90 tablet 2 Sig: Take 1 tablet by mouth three times a day for 90 days. Phoebe Morris August 30, 2024 8:04 AM documented in this encounterWayne Hospital11-04-2024 Telephone encounter Note * Telephone Encounter - Phoebe Seymour - 08/30/2024 8:03 AM EST Prescription Refill Information The patient has been identified by name and date of : Yes Caregiver verified no other encounters exist for this prescription request: Yes Caregiver confirmed with patient/requestor that no other refills are due, in the near future, with this provider at this time: Yes The last office visit in the department: 11-28-23 Does the patient have a future office visit with this provider/department: No Requested Prescriptions Pending Prescriptions Disp Refills gabapentin (NEURONTIN) 600 mg tablet 90 tablet 2 Sig: Take 1 tablet by mouth three times a day for 90 days. Phoebe Morris August 30, 2024 8:04 AM [facility]10-16-2024 Telephone encounter Note* Telephone Encounter - Adeline Syed - 08/11/2024 2:12 PM EDT Prescription Refill Information The patient has been identified by name and date of : Yes Caregiver verified no other encounters exist for this prescription request: Yes Caregiver confirmed with patient/requestor that no other refills are due, in the near future, with this provider at this time: Yes The last office visit in the department: 11/28/2023 Does the patient have a future office visit with this provider/department: No Requested Prescriptions Pending Prescriptions Disp Refills baclofen 10 mg tablet 90 tablet 5 Sig: Take 1 tablet by mouth three times a day as needed (muscle spasms). Adeline Syed August 11, 2024 2:12 PM [facility]10-16-2024 Miscellaneous Notes* Telephone Encounter - Adeline Syed - 08/11/2024 2:12 PM EDT Prescription Refill Information The patient has been identified by name and date of : Yes Caregiver verified no other encounters exist for this prescription request: Yes Caregiver confirmed with patient/requestor that no other refills are due, in the near future, with this provider at this time: Yes The last office visit in the department: 11/28/2023 Does the patient have a future office visit with this provider/department: No Requested Prescriptions Pending Prescriptions Disp Refills baclofen 10 mg tablet 90 tablet 5 Sig: Take 1 tablet by mouth three times a day as needed (muscle spasms). Adeline Syed August 11, 2024 2:12 PM documented in this encounterWayne Hospital09-18-2024 Telephone encounter Note * Telephone Encounter - Viki Hernandez APRN.CNP - 07/14/2024 3:12 PM EDT The following approved medication requests have been transmitted electronically. Requested Prescriptions Pending Prescriptions Disp Refills amLODIPine (NORVASC) 10 mg tablet 90 tablet 1 Sig: Take 1 tablet by mouth once daily. Viki Hernandez APRN.CNP [facility]09-18-2024 Miscellaneous Notes* Telephone Encounter - Viki Hernandez APRN.CNP - 07/14/2024 3:12 PM EDT The following approved medication requests have been transmitted electronically. Requested Prescriptions Pending Prescriptions Disp Refills amLODIPine (NORVASC) 10 mg tablet 90 tablet 1 Sig: Take 1 tablet by mouth once daily. Viki Hernandez APRN.CNP * Telephone Encounter - Jane Mitchell - 07/14/2024 1:35 PM EDT Prescription Refill Information The patient has been identified by name and date of : Yes Caregiver verified no other encounters exist for this prescription request: Yes Caregiver confirmed with patient/requestor that no other refills are due, in the near future, with this provider at this time: Yes The last office visit in the department: 11/28/23 Does the patient have a future office visit with this provider/department: No Requested Prescriptions Pending Prescriptions Disp Refills amLODIPine (NORVASC) 10 mg tablet 90 tablet 1 Sig: Take 1 tablet by mouth once daily. Jane Morris July 14, 2024 1:36 PM documented in this encounterWayne Hospital09-18-2024 Telephone encounter Note * Telephone Encounter - Jane Mitchell - 07/14/2024 1:35 PM EDT Prescription Refill Information The patient has been identified by name and date of : Yes Caregiver verified no other encounters exist for this prescription request: Yes Caregiver confirmed with patient/requestor that no other refills are due, in the near future, with this provider at this time: Yes The last office visit in the department: 11/28/23 Does the patient have a future office visit with this provider/department: No Requested Prescriptions Pending Prescriptions Disp Refills amLODIPine (NORVASC) 10 mg tablet 90 tablet 1 Sig: Take 1 tablet by mouth once daily. Jane Morris July 14, 2024 1:36 PM [facility]07-31-2024 Telephone encounter Note* Telephone Encounter - Viki Hernandez APRN.CNP - 05/26/2024 11:05 AM EDT The following approved medication requests have been transmitted electronically. Requested Prescriptions Pending Prescriptions Disp Refills gabapentin (NEURONTIN) 600 mg tablet 90 tablet 2 Sig: Take 1 tablet by mouth three times a day for 90 days. Viki Hernandez APRN.CNP [facility]07-31-2024 Miscellaneous Notes* Telephone Encounter - Viki Hernandez APRN.CNP - 05/26/2024 11:05 AM EDT The following approved medication requests have been transmitted electronically. Requested Prescriptions Pending Prescriptions Disp Refills gabapentin (NEURONTIN) 600 mg tablet 90 tablet 2 Sig: Take 1 tablet by mouth three times a day for 90 days. Viki Hernandez APRN.CNP * Telephone Encounter - Krista Abad - 05/26/2024 8:45 AM EDT Prescription Refill Information The patient has been identified by name and date of : Yes Caregiver verified no other encounters exist for this prescription request: Yes Caregiver confirmed with patient/requestor that no other refills are due, in the near future, with this provider at this time: Yes The last office visit in the department: 11/28/23 Does the patient have a future office visit with this provider/department: No Requested Prescriptions Pending Prescriptions Disp Refills gabapentin (NEURONTIN) 600 mg tablet 90 tablet 2 Sig: Take 1 tablet by mouth three times a day for 90 days. Krista Sweet [facility] May 26, 2024 8:45 AM documented in this encounterWayne Hospital07-31-2024 Telephone encounter Note * Telephone Encounter - Krista Abad - 05/26/2024 8:45 AM EDT Prescription Refill Information The patient has been identified by name and date of : Yes Caregiver verified no other encounters exist for this prescription request: Yes Caregiver confirmed with patient/requestor that no other refills are due, in the near future, with this provider at this time: Yes The last office visit in the department: 11/28/23 Does the patient have a future office visit with this provider/department: No Requested Prescriptions Pending Prescriptions Disp Refills gabapentin (NEURONTIN) 600 mg tablet 90 tablet 2 Sig: Take 1 tablet by mouth three times a day for 90 days. Krista Sweet [facility] May 26, 2024 8:45 AM [facility]05-03-2024 Telephone encounter Note* Telephone Encounter - Mathieu Velasco APRN.CNP - 02/27/2024 3:05 PM EDT The following approved medication requests have been transmitted electronically. Requested Prescriptions Pending Prescriptions Disp Refills gabapentin (NEURONTIN) 600 mg tablet 90 tablet 2 Sig: Take 1 tablet by mouth three times a day for 90 days. Mathieu Velasco APRN.CNP [facility]05-03-2024 Miscellaneous Notes* Telephone Encounter - Mathieu Velasco APRN.CNP - 02/27/2024 3:05 PM EDT The following approved medication requests have been transmitted electronically. Requested Prescriptions Pending Prescriptions Disp Refills gabapentin (NEURONTIN) 600 mg tablet 90 tablet 2 Sig: Take 1 tablet by mouth three times a day for 90 days. Mathieu Velasco APRN.SLITTER OPERATOR * Telephone Encounter - Josafat Limon LPN - 02/27/2024 2:52 PM EDT [facility] 11/28/23Aug no upcoming appt * Telephone Encounter - Trudy Yang - 02/27/2024 2:32 PM EDT Patient has been identified by name and date of : Yes Requested Prescriptions Pending Prescriptions Disp Refills gabapentin (NEURONTIN) 600 mg tablet 90 tablet 2 Sig: Take 1 tablet by mouth three times a day for 90 days. RX INSTRUCTIONS: Patient aware RX will be sent to pharmacy. No need to notify patient. Trudy Morris documented in this encounterWayne Hospital05-03-2024 Telephone encounter Note * Telephone Encounter - Josafat Limon LPN - 02/27/2024 2:52 PM EDT [facility] 11/28/23Aug no upcoming appt [facility]05-03-2024 Telephone encounter Note* Telephone Encounter - Trudy Yang - 02/27/2024 2:32 PM EDT Patient has been identified by name and date of : Yes Requested Prescriptions Pending Prescriptions Disp Refills gabapentin (NEURONTIN) 600 mg tablet 90 tablet 2 Sig: Take 1 tablet by mouth three times a day for 90 days. RX INSTRUCTIONS: Patient aware RX will be sent to pharmacy. No need to notify patient. Trudy Morris [facility]02-29-2024 Miscellaneous Notes* Telephone Encounter - Khadijah Curran MD - 12/25/2023 2:13 PM EST OK to refill as ordered Khadijah Curran MD documented in this encounterWayne Hospital02-05-2024 Miscellaneous Notes* Telephone Encounter - Viki Hernandez APRN.DORIAN - 12/01/2023 8:24 AM EST The following approved medication requests have been transmitted electronically. Requested Prescriptions Signed Prescriptions Disp Refills potassium chloride (KLOR-CON 10) 10 mEq tablet 60 tablet 2 Sig: Take 1 tablet by mouth two times a day. Authorizing Provider: VIKI HERNANDEZ APRN.DORIAN * Telephone Encounter - Sandy Landrum LPN - 12/01/2023 8:22 AM EST Patient notified of results, verbalizes understanding of instructions. Pt stated to send Potassium to [facility]. Also she is going to wait on the US at this time. Sandy Landrum LPN * Telephone Encounter - Viki Hernandez APRN.CNP - 12/01/2023 7:07 AM EST Can you please call the patient and let her know that I reviewed her labs and urine results. Urine came back negative for any bacterial growth. Labs were all relatively normal except her potassium was low. I would recommend starting supplementation and recheck labs in 2 weeks. Can you pleaseverify pharmacy? At this time I see no causes for her flank pain. If she is still having flank pain I would recommend a possible ultrasound of kidney and bladder. Viki Hernandez APRN.DORIAN documented in this encounterWayne Hospital02-02-2024 History of Present illness Narrative* Khadijah Curran MD - 11/28/2023 3:40 PM EST Chief Complaint Patient presents with: Diarrhea: Chronic Immunizations: Flu vaccination HPI Gabby Spence is a 58 year old female who presents here today for diarrhea. Still smoking, trying to quit. The smoking upsets her stomach. Pt c/o diarrhea, this is a chronic issue as pt has ulcerative colitis. No longer seeing Gastro Dr. Ornelas, just saw him for anal fissure. She has been on Uceris and prn Prednisone for the diarrhea inpast. Follows with Dr. White for colonoscopies, last one was 2 years ago per pt. States that she has been feeling really tired off and on x 2 months. Has some days that she feels good. States this past month has been the worse, she has lost weight, has decreased appetite, intermittent nausea and vomiting, diarrhea, fatigue. She is trying to stay hydrated. Here urine has been florescent yellow. Had blood and urine tests done today; results pending. Having a lot of back pain. She has been using Pepto Bismol and Imodium but stools are still runny. She has been off the Lialda 1.2 grams 2 pills daily for several months due to cost. Pt states this diarrhea seems similar to her usual colitis but thinks it might be a little worse. She is just using Protonix 40 mg daily for reflux. Has not been on any Prednisone recently, she still gets runny stools with Prednisone but it does slow down the bouts of diarrhea. Denies any blood in stool but states at times the stool is green in color. Has some pain to the lower abdomen. Anxiety & Depression: She has been taking the Prozac 10 mg daily for the last month but feels it might be making her too tired, takes it in the mornings. No longer on Cymbalta. She has noticed issues off and on with concentration even before she started on the Prozac. She never started Paxil, didn't tolerate Wellbutrin, Celexa caused scary thoughts, unsure about the Effexor. Past medical history, appointments, medications, allergies reviewed. Previous Medical History PAST MEDICAL HISTORY Diagnosis Date Anxiety Back pain Diastolic dysfunction 10/2017 EF 65%, stage 1 diastolic dysfunction per Echo History of colonoscopy 02/25/2008 Done at [facility] [place]/Dr. Vo Ulcerative colitis, unspecified Ulcerative colitis Previous Surgical History PAST SURGICAL HISTORY Procedure Laterality Date COLONOSCOPY Every 3 years, Dr White in [place] COLONOSCOPY 08/13/2017 EGD, Dr. White, Normal COLONOSCOPY FLX DX W/COLLJ SPEC WHEN PFRMD 08/19/[address] White - info scanned Family History FAMILY HISTORY Problem Relation Age of Onset Cancer Mother Cancer Father Heart disease Brother 3 brothers - 52years old 53 yesr old and 54 years old Patient Allergies ALLERGIES Allergen Reactions Wellbutrin [Bupropi* GI Upset Nausea and GI upset Azulfidine [Sulfasa* Hives Current Medications Current Outpatient Medications on File Prior to Visit Medication Sig baclofen 10 mg tablet TAKE 1 TABLET BY MOUTH THREE TIMES DAILY NEEDED (MUSCLE SPASMS). FLUoxetine (PROZAC) 10 mg capsule Take 1 capsule by mouth once daily. gabapentin (NEURONTIN) 600 mg tablet Take 1 tablet by mouth three times a day for 90 days. DULoxetine (CYMBALTA) 20 mg capsule Take 1 capsule by mouth once daily. meloxicam (MOBIC) 15 mg tablet Take 1 tablet by mouth once daily as needed. With a meal Mesalamine (LIALDA) 1.2 gram EC tablet Take 2 tablets by mouth daily with breakfast. amLODIPine (NORVASC) 10 mg tablet Take 1 tablet by mouth once daily. lisinopril (ZESTRIL) 20 mg tablet Take 1 tablet by mouth once daily. (Patient not taking: Reported on 07/09/2023) pantoprazole DR (PROTONIX) 40 mg tablet TAKE 1 TABLET BY MOUTH DAILY BEFORE BREAKFAST. TAKE 1/2 HOUR BEFORE MEAL No current facility-administered medications on file prior to visit. Social History Social History Tobacco Use Smoking status: Every Day Packs/day: 1.00 Years: 40.00 Additional pack years: 0.00 Total pack years: 40.00 Types: Cigarettes Start date: 10/27/1981 Smokeless tobacco: Never Tobacco comments: Cut back to 9-10 cigarettes per day Vaping Use Vaping Use: Never used Substance Use Topics Alcohol use: Yes Comment: once in a while Drug use: No EXAM: BP 124/78 Pulse 88 Temp 37.2 C (98.9 F) (Tympanic) Resp 16 Wt 86 kg (189 lb 11.2 oz) LMP 07/14/2013 BMI 29.71 kg/m General Appearance: Well appearing, alert, in no acute distress, well-hydrated, well nourished. andOverweight. Lungs: Lungs clear to auscultation. No wheezing, rhonchi, rales.. Heart: RRR without murmur, gallop, or rubs. No ectopy. Abdomen: Normal abdominal exam, Abdomen soft. Bowel sounds normal. No masses, organomegaly. Tenderness on palpation to lower abdomen. Health Maintenance List BP Controlled (<130/80) Never done Lung Cancer Screening Never done Shingrix Vaccine(1 of 2) Never done Pap Testing due on 11/18/2018 HPV Testing due on 11/18/2018 Mammogram Screening due on 02/19/2022 DTaP,Tdap,Td Vaccine(2 - Td or Tdap) due on 06/30/2022 Influenza Vaccine(1) due on 06/27/2023 Covid-19 Vaccine(3 - 2022- season) due on 06/27/2023 MMR Vaccine(1 of 2 - Risk 2-dose series) due on 07/09/2024 Hepatitis A Vaccine(1 of 2 - Risk 2-dose series) due on 07/09/2024 Meningococcal B Vaccine: Consider Based On Risk(1 of 4 - Increased Risk) due on 07/09/2024 HIV Screening due on 07/09/2024 Pneumococcal Vaccine(2 of 2 - PPSV23 or PCV20) due on 07/09/2024 Annual PCP Team Chronic Disease Visit due on 10/29/2024 Hepatitis B Vaccine(1 of 3 - Risk 3-dose series) due on 2025 Colorectal Cancer Screening due on 07/26/2025 Diabetes Screening due on 07/15/2026 Lipid Screening due on 07/15/2028 Hepatitis C Screening Completed Data reviewed None ASSESSMENT/PLAN: 1. Ulcerative pancolitis without complication (HCC) - ICD9: 556.6, ICD10: K51.00 (primary diagnosis) Rx for Lialda sent Start 9 day Taper dose prednisone 2. Essential hypertension - ICD9: 401.9, ICD10: I10 - Controlled - Continue current medications - Recommend home blood pressure monitoring, to bring results to next visit - Encouraged sodium restriction, DASH or Mediterranean diet - Recommend regular aerobic exercise - Discussed need for and benefit of weight loss. BMI 29.71 kg/(m^2) - AMLODIPINE 10 MG TABLET 3. Back pain, unspecified back location, unspecified back pain laterality, unspecified chronicity -ICD9: 724.5, ICD10: M54.9 - GABAPENTIN 600 MG TABLET 4. Left sided abdominal pain - ICD9: 789.09, ICD10: R10.9 - GABAPENTIN 600 MG TABLET 5. Need for influenza vaccination - ICD9: V04.81, ICD10: Z23 - INFLUENZA VACCINE, AGE 6 MO - 64 YR, QUADRIVALENT (AFLURIA, FLULAVAL, FLUZONE) 6. Anxiety and depression - ICD9: 300.00, 311, ICD10: F41.9, F32.A Stop Prozac Start Lexapro 5 mg daily Follow up in 1 month. I agree with the Chief Complaint, ROS, and Past Histories independently gathered by the clinical it application support analyst and the remaining scribed note accurately describes my personal service to the patient. Medical Decision Making: Problems: Moderate: 1+ chronic illnesses with change Risk: Moderate: Drug management Medical Decision Making Level: 4 - Moderate Khadijah Curran MD The documentation for this note was completed by Claire Virk Ma acting as scribe for Khadijah Curran MD. November 28, 2023 3:05 PM. Claire Virk Ma documented in this encounterWayne Hospital11-21-2023 Miscellaneous Notes* Telephone Encounter - Mathieu Velasco APRN.CNP - 09/16/2023 12:47 PM EST The following approved medication requests have been transmitted electronically. Requested Prescriptions Signed Prescriptions Disp Refills gabapentin (NEURONTIN) 600 mg tablet 90 tablet 2 Sig: Take 1 tablet by mouth three times a day for 90 days. Authorizing Provider: MATHIEU VELASCO APRN.CNP * Telephone Encounter - Demarcus Alonso LPN - 09/16/2023 12:45 PM EST Last refill 05/26/23 Qty: 90 with 3 refills LUIS 07/09/23 NOV none scheduled Demarcus Alonso LPN * Telephone Encounter - Naomi Buckner - 09/16/2023 12:16 PM EST Patient has been identified by name and date of : Yes Requested Prescriptions Pending Prescriptions Disp Refills gabapentin (NEURONTIN) 600 mg tablet 90 tablet 3 Sig: Take 1 tablet by mouth three times a day for 90 days. RX INSTRUCTIONS: Patient aware RX will be sent to pharmacy. No need to notify patient. Naomi Reeves documented in this encounterWayne Hospital10-27-2023 Miscellaneous Notes* Telephone Encounter - Claire Virk Ma - 08/22/2023 4:50 PM EDT Pt notified. Claire Virk Ma * Telephone Encounter - Khadijah Curran MD - 08/22/2023 4:33 PM EDT OK for prednisone as ordered Khadijah Curran MD * Telephone Encounter - Lashae Chopra RN - 08/22/2023 4:12 PM EDT Patient requesting prednisone refill. Reports she is having diarrhea and colitis-type flare-up for about the last 4 days. Reports she gets this at times. Denies fever. Requesting [facility]. Please call pt with update. Thank you. documented in this encounterWayne Hospital09-20-2023 Miscellaneous Notes* Telephone Encounter - Gail Savage RN - 07/16/2023 1:20 PM EDT Pt called and is notified of providers results and instructions. Pt voices understanding. She states she wasn't fasting, she ate a peanut butter and jelly sandwich for lunch. Gail Savage RN * Telephone Encounter - Viki Hernandez APRN.CNP - 07/16/2023 12:28 PM EDT Can you please call the patient and let her know that I reviewed her lab results. Can you verify that she was fasting for labs? Glucose was elevated at 154 but A1C was 5.5. LDL cholesterol was elevated. I would recommend lifestyle changes at home to help improve this. Try to decrease processed foods in the diet. Increase lean protein, veggies, and get some form of exercise. Health Form has been completed and faxed. Please let me know if she has any questions. Thank you. Viki Hernandez APRN.DORIAN documented in this encounterWayne Hospital09-13-2023 History of Present illness Narrative* Viki Hernandez APRN.CNP - 07/09/2023 4:40 PM EDT This is a 58 year old female who presents today with: Patient presents with: Wellness HISTORY OF PRESENT ILLNESS: Gabby Spence is a 58 year old female. Patient presents with: Wellness Diet: Working on eating a well balanced diet. Exercise: Staying active at work. Vision: Had exam, wears readers as needed. Dentist: Due at this time. Sleep: 7 hours per night. On going diarrhea, history of ulcerative coltis. 4 episodes of diarrhea per day. Used to be 8-10 episodes per day. Will be seeing Gastroenterology in [place] next week. Symptoms improving slowly. No Abdominal pain. No blood or mucus in the stool. Did a steroid taper last month which was helpful. Taking mesalamine 1.2 g, 2 tablets with breakfast. Mood: Taking Cymbalta 60 mg daily. Feels like medication isn't beneficial anymore. Increase sadnessat times. Some over thinking and worry. No SI/HI. Would like to come off the cymbalta. Arthritis/Pain: Taking Meloxicam 15 mg daily and gabapentin 600 mg 3 times daily. GERD: Taking Protonix 40 mg daily. Symptoms well controlled medication. Pap: [facility] in [place], due for pap. Mammogram: Due now, getting completed [facility] in [place]. Vaccines: Denies wanting any vaccines. PAST MEDICAL HISTORY: PAST MEDICAL HISTORY Diagnosis Date Anxiety Back pain Diastolic dysfunction 10/2017 EF 65%, stage 1 diastolic dysfunction per Echo History of colonoscopy 02/25/2008 Done at [facility]/Dr. Vo Ulcerative colitis, unspecified Ulcerative colitis PAST SURGICAL HISTORY Procedure Laterality Date COLONOSCOPY Every 3 years, Dr White in [place] COLONOSCOPY 08/13/2017 EGD, Dr. White, Normal COLONOSCOPY FLX DX W/COLLJ SPEC WHEN PFRMD 08/19/[address] White - info scanned ALLERGIES Wellbutrin [Bupropion Hcl] and Azulfidine [Sulfasalazine] MEDICATIONS Current Outpatient Medications Medication Sig baclofen 10 mg tablet TAKE 1 TABLET BY MOUTH THREE TIMES DAILY NEEDED (MUSCLE SPASMS). DULoxetine (CYMBALTA) 60 mg capsule Take 1 capsule by mouth once daily. Mesalamine (LIALDA) 1.2 gram EC tablet Take 2 tablets by mouth daily with breakfast. meloxicam (MOBIC) 15 mg tablet Take 1 tablet by mouth once daily as needed. With a meal gabapentin (NEURONTIN) 600 mg tablet Take 1 tablet by mouth three times daily for 90 days. amLODIPine (NORVASC) 10 mg tablet Take 1 tablet by mouth once daily. lisinopril (ZESTRIL) 20 mg tablet Take 1 tablet by mouth once daily. pantoprazole DR (PROTONIX) 40 mg tablet TAKE 1 TABLET BY MOUTH DAILY BEFORE BREAKFAST. TAKE 1/2 HOUR BEFORE MEAL No current facility-administered medications for this visit. FAMILY HISTORY Problem Relation Age of Onset Cancer Mother Cancer Father Heart disease Brother 3 brothers - 52years old 53 yesr old and 54 years old Social History Tobacco Use Smoking status: Every Day Packs/day: 1.00 Years: 40.00 Additional pack years: 0.00 Total pack years: 40.00 Types: Cigarettes Start date: 10/27/1981 Smokeless tobacco: Never Tobacco comments: Cut back to 9-10 cigarettes per day Vaping Use Vaping Use: Never used Substance Use Topics Alcohol use: Yes Comment: once in a while Drug use: No REVIEW OF SYSTEMS GENERAL: No weight loss, malaise or fevers/chills HEENT: Negative for frequent or significant headaches, No changes in hearing or vision. NECK: Negative for lumps, goiter, pain and significant neck swelling RESPIRATORY: Negative for cough, hemoptysis, wheezing, dyspnea or shortness of breath CARDIOVASCULAR: Negative for chest pain, leg swelling, orthopnea, or palpitations GI: No nausea, vomiting, or diarrhea/constipation. No hematochezia/melena. No heartburn or reflux symptoms. : No history of dysuria, frequency or incontinence MUSCULOSKELETAL: Negative for joint pain or swelling. SKIN: Negative for lesions, rash, and itching ENDOCRINE: Negative for cold or heat intolerance, polyuria, polydipsia and goiter NEURO: No history of headaches, syncope, paralysis, seizures or tremors MOOD: + Sadness, anxiety EXAM: BP 130/88 Pulse 86 Resp 16 Wt 83.9 kg (185 lb) LMP 07/14/2013 SpO2 95% BMI 28.98 kg/m PHYSICAL EXAM: General Appearance: Well appearing, alert, in no acute distress, well-hydrated, well nourished.. Skin: Skin color, texture, turgor normal, no suspicious rashes or lesions. Head: Normocephalic, no masses, lesions, tenderness or abnormalities. Eyes: Anicteric sclera. Pupils are equally round and reactive to light. Extraocular movements are intact. . Lungs: Lungs clear to auscultation. No wheezing, rhonchi, rales.. Heart: RRR without murmur, gallop, or rubs. No ectopy. Abdomen: Normal abdominal exam, Abdomen soft, non-tender. Bowel sounds normal. No masses, organomegaly, Negative CVA tenderness. Extremities: No deformities, edema, skin discoloration, clubbing or cyanosis. Good capillary refill. . Musculoskeletal: No joint swelling, deformity, or tenderness. Peripheral Pulses: Normal, Capillary refill <2secs, strong peripheral pulses, Pulses palpable. Neurologic: Gait normal. Reflexes normal and symmetric. Sensation grossly intact.. Mood: Pleasant, engaged, good eye contact. ASSESSMENT/PLAN: 1. Wellness examination - ICD9: V70.0, ICD10: Z00.00 (primary diagnosis) - Counseled on healthy diet and regular exercise - Calcium intake with supplements or by diet of 1000 mg/day for under 50, 1200- 1500 mg/day for 50+ - Mammogram ordered - exam recommended once yearly - Smoking cessation encouraged; discussed risks to health and quitting strategies. Patient is not ready to quit - Depression screening tool completed and reviewed with patient. Based on score and interview, patient is already diagnosed with depression and recommended continuing current plan of care. - Follow up for annual exam in one year 2. Ulcerative pancolitis without complication (HCC) - ICD9: 556.6, ICD10: K51.00 - Keep up coming appointment with Gastroenterology. - Continue to take medication as prescribed. - COMP METABOLIC PANEL 3. Anxiety with depression - ICD9: 300.4, ICD10: F41.8 - Taper off Cymbalta, instructions provided. - Start Paxil 10 mg. - PAROXETINE 10 MG TABLET - DULOXETINE 20 MG CAPSULE,DELAYED RELEASE 4. Arthritis of right sternoclavicular joint - ICD9: 716.91, ICD10: M19.011 - Stable, refill provided. - MELOXICAM 15 MG TABLET 5. GERD without esophagitis - ICD9: 530.81, ICD10: K21.9 - Stable, continue to take medication as prescribed. 6. Screening cholesterol level - ICD9: V77.91, ICD10: Z13.220 - LIPID PANEL BASIC 7. Screening for diabetes mellitus - ICD9: V77.1, ICD10: Z13.1 - HGB A1C 8. Encounter for screening for lung cancer - ICD9: V76.0, ICD10: Z12.2 - CONSULT LUNG CAN[facility]ER SCREENING [facility]INIC Follow up in 1 month or sooner as needed. Discussed treatment plan and patient voices understanding. Patient's questions answered appropriately. Medications and potential side effects were discussed and patient voices understanding. Viki Hernandez APRN.SLITTER OPERATOR This note was partially generated using [employer] recognition system. Note was reviewed for accuracy. There may be minor misspellings or grammar miscues with [employer] voice recognition. documented in this encounterWayne Hospital09-13-2023 Instructions* Patient Instructions* Viki Hernandez APRN.CNP - 07/09/2023 4:34 PM EDT Get fasting labs completed, no food 10-12 hours prior. May have black coffee and water. Lab open Friday 7:30 am -12 Start Paxil 10 mg daily. Taper off of the Cymbalta. Take 2 capsule of Cymbalta 20 mg= 40 mg daily for 1 week. Then reduce to1 capsule 20 mg daily for 1 week. Then 1 capsule 20 mg every other day. Then 1 capsule every 3 daysfor 1 week then stop. Keep up coming appointment with Dr. Romel MCKEON . May consider Shingles vaccine, check with insurance. Due for pap and dentist. Continue to work on eating a well balanced diet and stay active. Stay well hydrated. Recommend smoking cessation. Follow up in 1 month or sooner as needed. Health Promotion: - Eat healthy -- go to [employer] to get started - Have a yearly physical - Mammogram yearly after age 40 - Get at least 30 minutes of physical activity daily - Get at least 7 to 8 hours of sleep each night - Reach and maintain a healthy weight - Get help to quit or don't start smoking - Limit alcohol use to one drink or less - Do not use illegal drugs or misuse prescription drugs - Wear a helmet when riding a bike and wear protective gear for sports - Wear a seatbelt in cars and not text and drive - Wear sunscreen documented in this encounterWayne Hospital09-12-2023 Telephone encounter Note * Telephone Encounter - Maxine Bernardo MA - 07/08/2023 10:55 AM EDT Pt called in and is asking for refill of meloxicam for her arthritis to last until her appt on 08/07/23 Please advise [facility] [place] [id number] Miscellaneous Notes* Telephone Encounter - Maxine Bernardo MA - 07/08/2023 10:55 AM EDT Pt called in and is asking for refill of meloxicam for her arthritis to last until her appt on 08/07/23 Please advise [facility] [place] documented in this [id number] Miscellaneous Notes* Telephone Encounter - Hui Zaman LPN - 06/20/2023 9:02 AM EDT Prescription sent to the pharmacy. Hui Zaman LPN * Telephone Encounter - Khadijah Curran MD - 06/20/2023 8:59 AM EDT OK to refill as ordered Khadijah Curran MD * Telephone Encounter - Beth Lopez - 06/20/2023 8:51 AM EDT Patient has been identified by name and date of : Yes Last office visit in this department: 05/29/2023 Labs-01/18/23 NOV-07/09/23 RX INSTRUCTIONS: Patient aware RX will be sent to pharmacy. No need to notify patient. Patient phones requesting refills as follows: Requested Prescriptions Pending Prescriptions Disp Refills DULoxetine (CYMBALTA) 60 mg capsule 30 capsule 5 Sig: Take 1 capsule by mouth once daily. Mesalamine (LIALDA) 1.2 gram EC tablet 60 tablet 0 Sig: Take 2 tablets by mouth daily with breakfast. Please review and advise. Beth Morris documented in this encounterWayne Hospital08-24-2023 History of Present illness Narrative* Ghulam Hall DPM - 06/19/2023 5:05 PM EDT Patient Name: Gabby Spence MR #: [id number] : 1965 Gender: female. Date of Consultation: 06/19/2023. Author: AMPARO Morales Physicians: Glo Amezcua MD (Family); No ref. provider found (Referring) History of Present Illness: Gabby Spence is a 58 y.o. 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 Patient relates she was diagnosed with severe osteoarthritis in her neck. Patient unfortunately has a history of tobacco use. Patient recently got her cortisone shot in her right neck and a prescription for meloxicam. Patient states the left foot hurts with shoe gear touching it as well as moving the tarsometatarsal joint. Patient does relate there is been no history of injury to the left foot. Patient relates that multiple joints swell and ache. Assessment and Plan: 1. 1. Primary osteoarthritis of left foot Foot Orthotics Custom Bilateral Rheumatoid factor CASPER HLA-B27 Antigen 2. Bone spur of left foot Foot Orthotics Custom Bilateral Rheumatoid factor CASPER HLA-B27 Antigen Plan: Patient was seen and evaluated. I discussed the findings with the patient. Patient was given opportunity to ask questions. Patient elects to have the following treatment as follows: I injected the left tarsometatarsal joint with 1 cc of Decadron phosphate and 1 cc of 0.5% Marcaineplain. I prescribed 1 pair of full-length functional orthotics to be worn with a stiff soled type new balance shoe with a fabric toe cover that allows for stretching of the spur. Patient was told to use her Mobic for the left foot that is being used for her neck. Patient was told to come back in 1 month. I have advised patient that if conservative managements do not work an arthrodesis of the second and third metatarsocuneiform joint of the left foot would bethe next step. I did advise patient she has to be nicotine free 30 days before the surgery and throughout the healing process over 2 to 3 months. Lower Extremity: Integumentary: SEE wound picture Musculoskeletal: There is a dorsal bony prominence over the second third metatarsal cuneiform joints left foot. Patient has pain and crepitation when I go to manipulate the second third metatarsal cuneiform joints of the left foot. Patient no pain with first metatarsal cuneiform joint or fourth or fifth metatarsal cuboid joint motion. Patient's subtalar midtarsal and ankle joint range of motion of the left foot was unremarkable. Neurological: sensation intact left foot.. Mild Tinel's sign over the deep peroneal nerve. Vascular: DP PT pulses are palpable on the left foot. * No LDAs found * BP (!) 154/85 (BP Location: Left arm, Patient Position: Sitting, BP Cuff Size: X-large Adult) Pulse 76 Temp 98.1 F (36.7 C) (Infrared) Allergy Information: I have reviewed the patient's allergies. Sulfasalazine Home Medications: Current Outpatient Medications Medication Sig Dispense Refill amLODIPine (NORVASC) 10 MG tablet Take 1 (one) tablet (10 mg total) by mouth daily . baclofen (LIORESAL) 10 MG tablet TAKE 1 TABLET BY MOUTH THREE TIMES DAILY NEEDED (MUSCLE SPASMS). DULoxetine (CYMBALTA) 60 MG capsule Take 1 (one) capsule (60 mg total) by mouth daily . furosemide (LASIX) 20 MG tablet Take 1 (one) tablet (20 mg total) by mouth daily . 30 tablet 1 lisinopriL (PRINIVIL,ZESTRIL) 20 MG tablet Take 1 (one) tablet (20 mg total) by mouth daily . loperamide (IMODIUM) 2 mg capsule Take 1 (one) capsule (2 mg total) by mouth 4 (four) times a day as needed for diarrhea . 30 capsule 0 mesalamine (LIALDA) 1.2 g EC tablet Take 1 (one) tablet (1.2 g total) by mouth 2 (two) times a day . 180 tablet 1 pantoprazole (PROTONIX) 40 MG tablet TAKE 1 TABLET BY MOUTH DAILY BEFORE BREAKFAST. TAKE 1/2 HOUR BEFORE MEAL gabapentin (NEURONTIN) 300 MG capsule Take 1 (one) capsule (300 mg total) by mouth 3 (three) times a day for 10 days . 30 capsule 0 pregabalin (LYRICA) 50 MG capsule Take 1 (one) capsule (50 mg total) by mouth 2 (two) times a day .60 capsule 0 No current facility-administered medications for this visit. Review of Systems: The following system(s) were reviewed and pertinent findings noted: Pertinent positives and negatives as mentioned above, otherwise full review of systems is negative unless mentioned below: Patient currently denies Nausea/Vomiting/Fever/Chills/Shortness of Breath/Chest Pain. Medical History: History reviewed. No pertinent past medical history.. Surgical History: History reviewed. No pertinent surgical history.. Social History: Social History Socioeconomic History Marital status: Tobacco Use Smoking status: Every Day Packs/day: .5 Types: Cigarettes Smokeless tobacco: Never Substance and Sexual Activity Alcohol use: Not Currently Drug use: Yes Types: Marijuana Comment: off and on Sexual activity: Not Currently Partners: Male Social Determinants of Health Financial Resource Strain: Low Risk (12/24/2022) Overall Financial Resource Strain (CARDIA) Difficulty of Paying Living Expenses: Not hard at all Food Insecurity: No Food Insecurity (12/24/2022) Hunger Vital Sign Worried About Running Out of Food in the Last Year: Never true Ran Out of Food in the Last Year: Never true Transportation Needs: No Transportation Needs (12/24/2022) PRAPARE - Transportation Lack of Transportation (Medical): No Lack of Transportation (Non-Medical): No Social Connections: Unknown (12/24/2022) Social Connection and Isolation Panel [NHANES] Frequency of Social Gatherings with Friends and Family: Once a week Family History: History reviewed. No pertinent family history. Electronically signed by the above physician 06/19/23 documented in this [id number] Instructions* Patient Instructions* Robert Camacho PA - 06/16/2023 2:21 PM EDT - Consider Voltaren Gel for the SC joint swelling and pain - You received an injection today in your shoulder that contains both lidocaine and a corticosteroid. The lidocaine may provide pain relief for the initial few hours but this can wear off and you mayexperience a flare of pain later today. If this happens, I recommend using ice and mgjb-nvt-jtbldjjeazu medication if you can tolerate these for pain relief. You may also experience some heaviness or numbness of the arm which is related to the lidocaine. This will wear off in a few hours. The steroid may take a couple days to have its full effect. -If this injection works well we may be able to repeat it in the future if needed. We recommend an injection once to twice a year at most in each injection must at least be 3 months apart from the original one. If the injection does not work we must wait at least 3 months between injection and any potential surgical intervention. -I recommend resting the shoulder for the next few days while this medication takes effect. Avoid any unnecessary heavy motions or lifting. -If you are diabetic the steroid may increase your blood glucose numbers for the next few days. I recommend monitoring your blood glucose closely, maintaining a healthy low-carb diet as well as adjusting medications if needed. -You may experience some facial flushing or warmth in the face which is related to the steroid. Youmay also have more energy today and difficulty falling asleep tonight which is related to the steroid. These are all normal for side effects and should not cause concern. -If you develop a fever over 101.4 degrees or develop swelling and redness around the injection site please let our office know. documented in this encounterWayne Hospital08-21-2023 History of Present illness Narrative* Robert Camacho PA - 06/16/2023 1:50 PM EDTAssociated Order(s): Large Joint Arthro/Inj: R glenohumeral Post-Procedure Diagnose(s): Biceps tendonitis on right Robetr Camacho PA-C, [facility] [place] [address] Office: [phone] Patient info: Gabby Spence ([id number]) Service date: 06/16/2023 Referred by: Angela Calle [address] [id number] If Consult requested for an opinion regarding the evaluation and treatment of the above. My final impression and recommendations will be communicated back to the requesting physician by way of the shared medical record or letter via US mail. PCP: MD Magdy Chief Complaint: Right shoulder/SC joint swelling and pain. Pain (Shoulder Pain) HPI:Gabby Spence is a 58 year old Left hand dominant patient who presents with the complaint of Right shoulder/SC joint swelling and apin. The pain is acute in nature and has been present for a couple month(s). There was not an injury. The pain is described as aching and is located over the SC joint and anterior shoulder/lateral clavicle. There is night pain. The pain does radiate up to the neck. The pain is better with heat and worse with cross body, raising her arm. There is not a sense of instability. Mechanical symptoms are not present. There is not a complaint numbness and tingling in the affected arm. He has had right shoulder pain for the last few months. Denies any injury or incident. Most the pain is over the anterior and lateral deltoid. She has difficulty raising her arm overhead without pain. Few weeks ago she noticed some swelling around her right SC joint. Again no injury or incident. Denies any fevers chills or night sweats. Denies any skin changes such as erythema or warmth to touch.She says some days this area will be swollen and other days it will appear normal. They have not had prior issues with this shoulder. Patient has not had prior surgery to this shoulder. PAIN EVALUATION 06/16/2023 1342 Pain Level: 8 Pain Location: Shoulder-Right Description: Aching Duration Units: Months Frequency: Continuous Intervention/Comfort measure: Medication Other pertinent Hx: Prior treatments: Modified Activity OTC NSAIDS for Less Than 3 Months Ice and/or Heat Physical therapy: No Corticosteroid Injections: No History of Smoking: Not specified History of frequent fall: No Last BMI: BMI Readings from Last 1 Encounters: 05/29/23 : 28.19 kg/m History of Diabetes? Hemoglobin A1C Date Value Ref Range Status 01/15/2023 6.0 (H) 4.3 - 5.6 % Final Comment: [place] [employer] guidelines indicate that patients with HgbA1c in the range 5.7-6.4% are at increased risk for development of diabetes, and intervention by lifestyle modification may be beneficial. HgbA1c greater or equal to 6.5% is considered diagnostic of diabetes. REVIEW OF SYMPTOMS: Constitutional: Any recent fevers? Negative Cardiovascular: Any chest pain? Negative Respiratory: Any shortness or breath? Negative Gastrointestinal: Any abdominal discomfort? Negative Integumentary: Any recent skin changes or rashes? Negative Neurologic: Any numbness or tingling? Negative Hematologic: Any recent bleeding episodes? Negative FAMILY HISTORY Problem Relation Age of Onset Cancer Mother Cancer Father Heart disease Brother 3 brothers - 52years old 53 yesr old and 54 years old PAST MEDICAL HISTORY Diagnosis Date Anxiety Back pain Diastolic dysfunction 10/2017 EF 65%, stage 1 diastolic dysfunction per Echo History of colonoscopy 02/25/2008 Done at [facility] [place]/Dr. Vo Ulcerative colitis, unspecified Ulcerative colitis PAST SURGICAL HISTORY Procedure Laterality Date COLONOSCOPY Every 3 years, Dr White in [place] COLONOSCOPY 08/13/2017 EGD, Dr. White, Normal COLONOSCOPY FLX DX W/COLLJ SPEC WHEN PFRMD 08/19/[address] White - info scanned ALLERGIES Allergen Reactions Wellbutrin [Bupropi* GI Upset Nausea and GI upset Azulfidine [Sulfasa* Hives Problem List: reviewed and updated. Social History: Social History Tobacco Use Smoking status: Every Day Packs/day: 1.00 Years: 40.00 Additional pack years: 0.00 Total pack years: 40.00 Types: Cigarettes Start date: 10/27/1981 Smokeless tobacco: Never Tobacco comments: Cut back to 9-10 cigarettes per day Vaping Use Vaping Use: Never used Substance Use Topics Alcohol use: Yes Comment: once in a while Drug use: No Current Outpatient Medications Medication Sig predniSONE (DELTASONE) 10 mg tablet Take 4 tabs daily x5 days, then 2 tabs daily for 5 days, then 1tab daily for 5 days. gabapentin (NEURONTIN) 600 mg tablet Take 1 tablet by mouth three times daily for 90 days. Mesalamine (LIALDA) 1.2 gram EC tablet Take 2 tablets by mouth daily with breakfast. amLODIPine (NORVASC) 10 mg tablet Take 1 tablet by mouth once daily. lisinopril (ZESTRIL) 20 mg tablet Take 1 tablet by mouth once daily. baclofen (LIORESAL) 10 mg tablet Take 1 tablet by mouth three times daily as needed (muscle spasms). DULoxetine (CYMBALTA) 60 mg capsule Take 1 capsule by mouth once daily. pantoprazole DR (PROTONIX) 40 mg tablet TAKE 1 TABLET BY MOUTH DAILY BEFORE BREAKFAST. TAKE 1/2 HOUR BEFORE MEAL No current facility-administered medications for this visit. General Physical Exam: LMP 07/14/2013 No weight on file for this encounter. Constitutional: Pleasant, well-appearing, no acute distress. Resp: breathing is unlabored without audible wheeze Vascular: Normal pedal and radial pulses, no cyanosis, no venous stasis changes Skin: No overlying skin change, ecchymosis, or erythema. Psychiatric: Pleasant, direct, appropriate mood and affect Focused Musculoskeletal/Neurologic exam: Examination of the bilateral shoulder reveals the skin to be clean, dry and intact. There is no surrounding erythema or ecchymoses. No atrophy, deformity or asymmetry noted. For the affected right shoulder there are no previous surgical scars. There is significant tenderness to palpation of the anterior shoulder. Active ROM is 50 External Rotation, 150 Forward Flexion and L3 Internal Rotation. The contralateralshoulder is 70 ER, 160 FF, L3 IR. PROM of the affected shoulder is 70 ER, 170 FF. Strength of the shoulder is 5/5 ER, 5/5 FF, 5/5 IR compared to the other shoulder normal. Special tests of the right Shoulder: Grant's/Empty Can Negative Belly Press Negative Lift-off Negative Drop Arm Negative Impingement Positive Speeds Positive Juniata's Positive Instability Negative Cross Body Adduction Positive ER Lag Negative Escape Negative Scapular Dyskinesia Negative Spurling's Positive - created right sided neck pain Neurovascular intact distally with 2+ radial pulses bilaterally. Contra-lateral shoulder: normal Radiographic studies: Plain Radiographs of the Right clavicle were reviewed and discussed with patient. To my independentreview the xray shows SC joint degeneration. Last XR Shoulder - Impression Only No resulted procedures found. Assessment: Encounter Diagnosis ICD-10-CM 1. 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 Biceps tendonitis on right M75.21 3. Mass in neck R22.1 Plan: The nature of the problem and treatment options available were discussed in detail with the patient. We discussed that she likely has multiple sources of pain. She does have arthritis of the SCjoint which is causing the swelling that she notices. She denies any fevers, chills or other concerning symptoms and the skin is not red or warm to touch so my suspicion for septic joint is low. We di scussed using Voltaren gel topically to help with the inflammation and swelling. If it continues tobecome a problem we could have her be seen for an ultrasound- guided injection as I do not do these in office. For her shoulder she has adequate range of motion and good strength. She is painful mainly with biceps testing. We discussed the option for physical therapy as well as oral anti-inflammatories. We also discussed the possibility of a cortisone injection into the glenohumeral joint. This would hopefully be therapeutic as well as diagnostic meaning what ever pain is coming from the shoulder joint would be relieved from the injection. I would also like to send her to physical therapy to work on hermechanics and posture as a believe this is likely leading to some of her pain as well. after discussion, the decision was made to go forward with a right glenohumeral joint injection, prescription for meloxicam, physical therapy.. The plan is to proceed with a right GH joint cortisone injection. We discussed that the injection contains both a numbing agent as well as a steroid medication. Thissteroid can take up to 1 week to be effective. We discussed the hope for the injection to to relieve pain which will allow them to use their arm and work on exercises more efficiently. We discussed risks including but not limited to temporary facial flushing, temporary increase in pain, increase inblood glucose numbers, potential for soft tissue damage, and possibility of there being no relief with the injection or not lasting as long as one hopes. We will proceed. Large Joint Arthro/Inj: R glenohumeral Informed Consent Consent Obtained: Verbal [place] Protocol A moment to CARE was completed. SIGN IN Personnel directly involved with the procedure wore the appropriate PPE. Special Equipment: N/A Patient/Surrogate Stated/Verified: Date of , Patient name, Relevant allergies and Intended procedure TIME OUT Intended patient and procedure match the source document(s). Consent documented and matches the intended procedure. Relevant labs, photos, and/or imaging studies have been reviewed. Correct side/site marked and visible. Medications required for procedure verified. No fire risk assessment and interventions applicable. No implant(s) inserted. 06/16/2023 2:20 PM The procedure site was prepped in the usual sterile fashion. Site: R glenohumeral Medications: 80 mg triamcinolone acetonide 40 mg/mL Anesthetics: 5 mL lidocaine (PF) 10 mg/mL (1 %) Outcome: Tolerated well, no immediate complications Post-injection instructions were reviewed with the patient and the patient voiced understanding of these instructions. SIGN OUT No instruments, equipment or retained foreign bodies applicable. We will see them back in as needed with me. All questions answered. If any more questions or concerns arise, they should not hesitate to call. Some of this note was created using [employer] Dictation services. Please excuse any minor dictation or grammatical errors. Xrays needed at night visit: No Robert Camacho PA-C Orthopaedic Surgery [facility] 06/16/2023 1:50 PM CC:Angela Calle documented in this encounterWayne Hospital08-[facility]-2023 Miscellaneous Notes* Telephone Encounter - Hui Zaman LPN - 06/12/2023 11:53 AM EDT Spoke with pt and information listed below given. Pt verbalizes understanding. Transferred to a ticket scheduler to get apt with Ortho. Hui Zaman LPN * Telephone Encounter - Gail Savage RN - 06/12/2023 11:17 AM EDT Called and left a voicemail for the Patient to call back and ask for a nurse to receive the providers message. Gail Savage RN * Telephone Encounter - Angela Calle APRN.SLITTER OPERATOR - 06/12/2023 10:35 AM EDT US shows possible synovial cyst vs septic arthritis. I have sent a consult to orthopedics. * Telephone Encounter - Helen Dawkins Cma - 06/12/2023 10:31 AM EDT Printed and given to provider for review Helen Dawkins Cma * Telephone Encounter - Opal Montez RN - 06/12/2023 9:48 AM EDT Patient calls to check on results of US of Neck ordered by Angela Calle. US completed yesterday 06/11/2023 at [facility]. Please review and advise, Opal Montez RN * Telephone Encounter - Latanya Richardson RN - 06/11/2023 1:28 PM EDT Patient asking pcp to review and advise on US neck results, done at [facility]. documented in this [facility]08-04-2023 Miscellaneous Notes* Telephone Encounter - Opal Montez RN - 05/30/2023 12:43 PM EDT See other TE. Opal Montez RN * Telephone Encounter - Opal Montez RN - 05/30/2023 11:43 AM EDT Scheduling at [facility] is asking to fax over an order for US of head/neck instead of us extremity mass/fluid collection. Pended with previous diagnosis. Please review. Fax to [facility] at [phone]. Oapl Montez RN documented in this encounterWayne Hospital08-04-2023 Miscellaneous Notes* Telephone Encounter - Helen Dawkins Cma - 05/30/2023 10:34 AM EDT Orders faxed to [facility] patient notified and will call to schedule Helen Dawkins Cma * Telephone Encounter - Kateryna Mujica - 05/30/2023 8:25 AM EDT Patient would like to have US done at [facility] due to not being barby to have down at [facility]. This can be done at [facility], [facility], and [facility]. Please call patient once order has been sent to [facility]. documented in this encounterWayne Hospital08-03-2023 History of Present illness Narrative* Angela Calle APRN.SLITTER OPERATOR - 05/29/2023 5:16 PM EDT Chief Complaint Patient presents with: Follow Up: Lump on clavicle HPI Gabby Spence is a 58 year old female who presents here today for Above Complaints.. Patient presents for lump on clavicle. Patient reports she noticed it about 4 days ago. Reports area is painful to touch. Past medical history, appointments, medications, allergies reviewed. Previous Medical History PAST MEDICAL HISTORY Diagnosis Date Anxiety Back pain Diastolic dysfunction 10/2017 EF 65%, stage 1 diastolic dysfunction per Echo History of colonoscopy 02/25/2008 Done at [facility]/Dr. Vo Ulcerative colitis, unspecified Ulcerative colitis Previous Surgical History PAST SURGICAL HISTORY Procedure Laterality Date COLONOSCOPY Every [address] years, [address] White in [place] COLONOSCOPY 08/13/2017 EGD, Dr. White, Normal COLONOSCOPY FLX DX W/COLLJ SPEC WHEN PFRMD 08/19/[address] White - info scanned Family History FAMILY HISTORY Problem Relation Age of Onset Cancer Mother Cancer Father Heart disease Brother 3 brothers - 52years old 53 yesr old and 54 years old Patient Allergies ALLERGIES Allergen Reactions Wellbutrin [Bupropi* GI Upset Nausea and GI upset Azulfidine [Sulfasa* Hives Current Medications Current Outpatient Medications on File Prior to Visit Medication Sig gabapentin (NEURONTIN) 600 mg tablet Take 1 tablet by mouth three times daily for 90 days. Mesalamine (LIALDA) 1.2 gram EC tablet Take 2 tablets by mouth daily with breakfast. amLODIPine (NORVASC) 10 mg tablet Take 1 tablet by mouth once daily. lisinopril (ZESTRIL) 20 mg tablet Take 1 tablet by mouth once daily. baclofen (LIORESAL) 10 mg tablet Take 1 tablet by mouth three times daily as needed (muscle spasms). DULoxetine (CYMBALTA) 60 mg capsule Take 1 capsule by mouth once daily. pantoprazole DR (PROTONIX) 40 mg tablet TAKE 1 TABLET BY MOUTH DAILY BEFORE BREAKFAST. TAKE 1/2 HOUR BEFORE MEAL No current facility-administered medications on file prior to visit. Social History Social History Tobacco Use Smoking status: Every Day Types: Cigarettes Start date: 10/27/1981 Smokeless tobacco: Never Tobacco comments: Cut back to 9-10 cigarettes per day Vaping Use Vaping Use: Never used Substance Use Topics Alcohol use: Yes Comment: once in a while Drug use: No Review of Symptoms REVIEW OF SYSTEMS SEE HPI EXAM: BP 138/80 Pulse 94 Resp 14 Wt 81.6 kg (180 lb) LMP 07/14/2013 BMI 28.19 kg/m General Appearance: Well appearing, alert, in no acute distress, well-hydrated, well nourished.. Skin: Skin color, texture, turgor normal, no suspicious rashes or lesions. Neck: Round, firm, fixed mass directly over the right clavicle, just lateral to the mid clavicular notch. Area is tender with palpation, no redness or swelling noted. Health Maintenance List MENINGOCOCCAL B: Consider based on risk(1 of 4 - Increased Risk) Never done MMR(1 of 2 - Risk 2-dose series) Never done HIV SCREENING Never done BP CONTROLLED (<130/80) Never done HEPATITIS A(1 of 2 - Risk 2-dose series) Never done SHINGRIX VACCINE(1 of 2) Never done PNEUMOCOCCAL(2 - PPSV23 or PCV20) due on 10/12/2015 PAP TESTING due on 11/18/2018 HPV TESTING due on 11/18/2018 COVID-19 VACCINE(3 - Pfizer series) due on 03/24/2021 MAMMOGRAM due on 02/19/2022 DTAP,TDAP,TD(2 - Td or Tdap) due on 06/30/2022 INFLUENZA(1) due on 06/27/2023 ANNUAL PCP TEAM CHRONIC DISEASE VISIT due on 01/28/2024 HEPATITIS B(1 of 3 - Risk 3-dose series) due on 2025 COLORECTAL CANCER SCREENING due on 07/26/2025 DIABETES SCREEN due on 01/18/2026 LIPID SCREEN due on 05/31/2027 HEPATITIS C SCREENING Completed ASSESSMENT/PLAN: 1. Mass in neck - ICD9: 784.2, ICD10: R22.1 - XR CLAVICLE 2V RIGHT - US EXTREMITY MASS/FLUID COLLECTION RIGHT Angela Calle APRN.CNP documented in this encounterWayne Hospital07-31-2023 Miscellaneous Notes* Telephone Encounter - Mathieu Velasco APRN.CNP - 05/26/2023 11:48 AM EDT The following approved medication requests have been transmitted electronically. Requested Prescriptions Pending Prescriptions Disp Refills gabapentin (NEURONTIN) 600 mg tablet 90 tablet 3 Sig: Take 1 tablet by mouth three times daily for 90 days. Mathieu Velasco APRN.CNP * Telephone Encounter - Zakia Mckeon - 05/26/2023 11:22 AM EDT Patient has been identified by name and date of : Yes Requested Prescriptions Pending Prescriptions Disp Refills gabapentin (NEURONTIN) 600 mg tablet 90 tablet 3 Sig: Take 1 tablet by mouth three times daily for 90 days. LUIS-01/27/23 Labs-01/15/23 NOV-07/09/23 RX INSTRUCTIONS: Patient aware RX will be sent to pharmacy. No need to notify patient. Zakia Mckeon documented in this encounterWayne Hospital07-11-2023 Evaluation + Plan note* Assessment & Plan Note - Glo Amezcua MD - 05/06/2023 2:31 PM EDTAssociated Problem(s): Edema of both legs Elevated legs whenever possible Decrease amlodipine dose Compression stockings Echo ordered given family history of heart disease and HTN personal history Follow up on blood work and symptoms control [id number] Miscellaneous Notes* Assessment & Plan Note - Glo Amezcua MD - 05/06/2023 2:31 PM EDTAssociated Problem(s): Edema of both legs Elevated legs whenever possible Decrease amlodipine dose Compression stockings Echo ordered given family history of heart disease and HTN personal history Follow up on blood work and symptoms control * Assessment & Plan Note - Glo Amezcua MD - 05/06/2023 2:28 PM EDTAssociated Problem(s): Essential hypertension Controlled on lisinopril 20 mg as well as amlodipine 10 mg. Decreasing to amlodipine 5 mg given LLswelling She will keep an eye on the blood pressure at home , break tab in half and will follow up on BP login a Month * Assessment & Plan Note - Glo Amezcua MD - 05/06/2023 2:19 PM EDTAssociated Problem(s): Mid back pain Most likely related to muscle spasms flaring up with overuse, heavy weight lifting and increased weight gain. Does have degenerative disc disease based on previous imaging. Heat , icing and massage Stretching exercises at home Topicals as lidocaine, biofreeze , bengay . Voltaren gel 4 times a day as needed Tylenol 1000 mg every 8 hours , flexeril ordered today instead of baclofen. meloxicam didn't help. Gabapentin decreased to 300 x 3 times a day to see if it helps. switching to Lyrica and weaning of gabapentin. Xray of mid back today came back showing arthritis in thoracic and lumbar vertebrae Referral for PT Discontinued gabapentin, might consider MRI and referral to pain management * Assessment & Plan Note - Glo Amezcua MD - 05/06/2023 2:00 PM EDTAssociated Problem(s): Ulcerative colitis (HCC) Stable currently, last flare was December 2022, will get records from previous hospitalization. Last colonoscopy was in June 2022 that showed a polyp with tubular adenoma, recall in 3 to 5 years. Currently on Lialda refill Referral to GI with to establish care documented in this [id number] Evaluation + Plan note* Assessment & Plan Note - Glo Amezcua MD - 05/06/2023 2:28 PM EDTAssociated Problem(s): Essential hypertension Controlled on lisinopril 20 mg as well as amlodipine 10 mg. Decreasing to amlodipine 5 mg given LLswelling She will keep an eye on the blood pressure at home , break tab in half and will follow up on BP login a Month [id number] Instructions* Patient Instructions* Glo Amezcua MD - 05/06/2023 2:26 PM EDT Problem List Items Addressed This Visit Digestive Ulcerative colitis (HCC) Stable currently, last flare was December 2022, will get records from previous hospitalization. Last colonoscopy was in June 2022 that showed a polyp with tubular adenoma, recall in 3 to 5 years. Currently on Lialda refill Referral to GI with to establish care Relevant Medications loperamide (IMODIUM) 2 mg capsule mesalamine (LIALDA) 1.2 g EC tablet Other Relevant Orders Ambulatory referral to Gastroenterology Cardiovascular and Mediastinum Essential hypertension - Primary Controlled on lisinopril 20 mg as well as amlodipine 10 mg. Decreasing to amlodipine 5 mg given LLswelling She will keep an eye on the blood pressure at home , break tab in half and will follow up on BP login a Month Relevant Medications furosemide (LASIX) 20 MG tablet Other Relevant Orders TSH with Reflex Free T4 Microalbumin/Creatinine Ratio, UR Random Lipid Panel Comprehensive Metabolic Panel NT PRO BNP Other Mid back pain Most likely related to muscle spasms flaring up with overuse, heavy weight lifting and increased weight gain. Does have degenerative disc disease based on previous imaging. Heat , icing and massage Stretching exercises at home Topicals as lidocaine, biofreeze , bengay . Voltaren gel 4 times a day as needed Tylenol 1000 mg every 8 hours , flexeril ordered today instead of baclofen. meloxicam didn't help. Gabapentin decreased to 300 x 3 times a day to see if it helps. switching to Lyrica and weaning of gabapentin. Xray of mid back today came back showing arthritis in thoracic and lumbar vertebrae Referral for PT will check with the front office developer about number to schedule If not improving on gabapentin and PT we might consider MRI and referral Relevant Medications pregabalin (LYRICA) 50 MG capsule gabapentin (NEURONTIN) 300 MG capsule Other Relevant Orders Ambulatory Ref to [facility] (PT/OT[facility]ST) Drugs of Abuse Screen, Urine Edema of both legs Elevated legs whenever possible Decrease amlodipine dose Compression stockings Echo ordered given family history of heart disease and HTN personal history Follow up on blood work and symptoms control Relevant Medications furosemide (LASIX) 20 MG tablet Other Relevant Orders Echocardiogram complete NT PRO BNP Other Visit Diagnoses Prediabetes Relevant Orders Hemoglobin A1c Back pain, unspecified back location, unspecified back pain laterality, unspecified chronicity Relevant Medications gabapentin (NEURONTIN) 300 MG capsule If any referrals were placed at the time of your visit please allow 2 weeks for processing. If you haven't heard from anyone within 2 weeks please contact my office so we can look into the status of your referral. If you were given any labs today please ensure they are completed according to the directions given. Once labs are completed please allow 1-2 weeks for us to receive the results, review them, and letyou know what steps, if any, are needed next. If you haven't heard from us after that please call to inquire. If labs were ordered to be done PRIOR to your next visit we will discuss the results at the time ofyour office visit. If any procedures or imaging studies were ordered that must be prior authorized please give us 2 weeks to get them approved. Once approved someone should call you to schedule them or give you a date and time that they were scheduled for. If you haven't heard anything within 2 weeks of the office visit please call the office so we can look into their status. Customer Service/Billing Questions: [phone] MyChart Assistance: [phone] or [phone] Financial Assistance: [phone] or [phone] As of November 01, 2019 my schedule will be changing: Friday 7 am to 5 pm Friday 7 am to 5 pm Friday closed 7 am to 5 pm Friday 7 am to 1 pm documented in this [id number] Evaluation + Plan note* Assessment & Plan Note - Glo Amezcua MD - 05/06/2023 2:19 PM EDTAssociated Problem(s): Mid back pain Most likely related to muscle spasms flaring up with overuse, heavy weight lifting and increased weight gain. Does have degenerative disc disease based on previous imaging. Heat , icing and massage Stretching exercises at home Topicals as lidocaine, biofreeze , bengay . Voltaren gel 4 times a day as needed Tylenol 1000 mg every 8 hours , flexeril ordered today instead of baclofen. meloxicam didn't help. Gabapentin decreased to 300 x 3 times a day to see if it helps. switching to Lyrica and weaning of gabapentin. Xray of mid back today came back showing arthritis in thoracic and lumbar vertebrae Referral for PT Discontinued gabapentin, might consider MRI and referral to pain management [id number] Evaluation + Plan note* Assessment & Plan Note - Glo Amezcua MD - 05/06/2023 2:00 PM EDTAssociated Problem(s): Ulcerative colitis (HCC) Stable currently, last flare was December 2022, will get records from previous hospitalization. Last colonoscopy was in June 2022 that showed a polyp with tubular adenoma, recall in 3 to 5 years. Currently on Lialda refill Referral to GI with to establish care [id number] History of Present illness Narrative* Glo Amezcua MD - 05/06/2023 1:51 PM EDT Chief Complaint Patient presents with Follow-up 6 week f/u-legs are swelling, would like a refill on flexeril (not on her active med list) Hypertension HPI: Gabby Hogan 58 y.o. female presenting today follow up. PMH of nicotine dependence, ulcerative colitis, chronic back pain, hypertension Patient was hospitalized in December in [facility] for what sounds like a ulcerative colitis flareup with severe diarrhea, dehydration and BRIJESH, states that at one point she had hypotension that shehad to stay overnight in the ICU until they were able to maintain her blood pressure. Was followed up by Dr.[facility] Vill[facility] which she really likes.. Since that time her GI symptoms seems to slow down and get better. Diarrhea: For the past 4 months , has been going for BM about 8-10 times per day , all watery , no formation , non bloody. Had few that looked black/ coffee ground last was 2-3 weeks. Colonoscopy done by in July, no UC changes and was told she has IBS. Immodium Taking eusrus and asacol Diagnosed with UC 20 yrs ago in s Last colonoscopy by Dr. White was done and showed tubular adenoma 06/2022, repeat in 5 years, unsure if he told her 3 years in the last visit. Since her hospitalization in December has been on Lialda which seems to help with her abdominal symptoms. Back pain: Chronic for years, low and upper back both sides. Worsening with being on her feet for a longtime, sometimes laying in bed. Worse going up steps lean on the grocery cart sometimes. Pain is relatively under controlled on the current regimen with gabapentin 600 mg 3 times a day, has baclofen on hand but usually does not use it. 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 Sometimes shooting pain down her left leg. Denies any red flags with loss of bladder control , dropped foot or saddle anesthesia. Has had incontinence of stool and was brought up to GI attention. Some weakness noticed in both legs might stumble while walking. In the middle of the back from the bra straps till the lower part of buttock area that is not helping. Has been getting worse and more constant since I saw her last . Bilateral hand pain: For the past month has been having tingling and numbness in both hands along with pain in the middle fingers from the wrist all the way up. Mostly pain is severe in nighttime wakes her up from sleep. No past medical history on file. No past surgical history on file. No family history on file. Social History Tobacco Use Smoking status: Every Day Packs/day: 0.50 Types: Cigarettes Smokeless tobacco: Never Substance Use Topics Alcohol use: Not Currently Drug use: Yes Types: Marijuana Comment: off and on Review of Systems Vitals: 05/06/23 1343 BP: 120/79 BP Location: Right arm Patient Position: Sitting BP Cuff Size: X-large Adult Pulse: 78 Resp: 16 Temp: 98.4 F (36.9 C) TempSrc: Temporal SpO2: 96% Weight: 82.6 kg (182 lb) Height: 5' 7 Estimated body mass index is 28.51 kg/m as calculated from the following: Height as of this encounter: 5' 7. Weight as of this encounter: 82.6 kg (182 lb). Physical Exam Constitutional: General: She is not in acute distress. Appearance: She is not ill-appearing. HENT: Head: Normocephalic and atraumatic. Eyes: Extraocular Movements: Extraocular movements intact. Conjunctiva/sclera: Conjunctivae normal. Pupils: Pupils are equal, round, and reactive to light. Cardiovascular: Rate and Rhythm: Normal rate and regular rhythm. Pulses: Normal pulses. Heart sounds: Normal heart sounds. No murmur heard. No gallop. Pulmonary: Effort: Pulmonary effort is normal. Breath sounds: Normal breath sounds. No wheezing, rhonchi or rales. Chest: Chest wall: No tenderness. Abdominal: General: Abdomen is flat. Bowel sounds are normal. There is no distension. Palpations: Abdomen is soft. There is no mass. Tenderness: There is no abdominal tenderness. There is no right CVA tenderness, left CVA tenderness, guarding or rebound. Musculoskeletal: General: Tenderness (Thoracic and lumbar paraspinal muscles. Bilaterally) present. Normal range of motion. Cervical back: Normal range of motion and neck supple. No rigidity. No muscular tenderness. Right lower leg: No edema. Left lower leg: No edema. Comments: Negative straight leg raising test Lymphadenopathy: Cervical: No cervical adenopathy. Skin: General: Skin is warm. Findings: No erythema or rash. Neurological: General: No focal deficit present. Mental Status: She is alert and oriented to person, place, and time. Sensory: No sensory deficit. Motor: No weakness. Gait: Gait normal. Deep Tendon Reflexes: Reflexes normal. Psychiatric: Mood and Affect: Mood normal. Behavior: Behavior normal. Thought Content: Thought content normal. Judgment: Judgment normal. OARRS/NARxCHECK Report Received and Assessed: No data found Date controlled substance agreement signed: No data found Date of last drug screen: No data found Functional Assessment: No data found PHQ9: JOSE-7 Tobacco Counseling: Ready to quit: Not Answered Counseling given: Not Answered Patient's Medications New Prescriptions PREGABALIN (LYRICA) 50 MG CAPSULE Take 1 (one) capsule (50 mg total) by mouth 2 (two) times a day . Previous Medications AMLODIPINE (NORVASC) 10 MG TABLET Take 1 (one) tablet (10 mg total) by mouth daily . BACLOFEN (LIORESAL) 10 MG TABLET TAKE 1 TABLET BY MOUTH THREE TIMES DAILY NEEDED (MUSCLE SPASMS). DULOXETINE (CYMBALTA) 60 MG CAPSULE Take 1 (one) capsule (60 mg total) by mouth daily . LISINOPRIL (PRINIVIL,ZESTRIL) 20 MG TABLET Take 1 (one) tablet (20 mg total) by mouth daily . PANTOPRAZOLE (PROTONIX) 40 MG TABLET TAKE 1 TABLET BY MOUTH DAILY BEFORE BREAKFAST. TAKE 1/2 HOUR BEFORE MEAL Modified Medications Modified Medication Previous Medication FUROSEMIDE (LASIX) 20 MG TABLET furosemide (LASIX) 20 MG tablet Take 1 (one) tablet (20 mg total) by mouth daily . Take 1 (one) tablet (20 mg total) by mouth daily. GABAPENTIN (NEURONTIN) 300 MG CAPSULE gabapentin (NEURONTIN) 300 MG capsule Take 1 (one) capsule (300 mg total) by mouth 3 (three) times a day for 10 days . Take 3 (three) capsules (900 mg total) by mouth 3 (three) times a day . LOPERAMIDE (IMODIUM) 2 MG CAPSULE loperamide (IMODIUM) 2 mg capsule Take 1 (one) capsule (2 mg total) by mouth 4 (four) times a day as needed for diarrhea . Take 1 (one) capsule (2 mg total) by mouth 4 (four) times a day as needed for diarrhea . MESALAMINE (LIALDA) 1.2 G EC TABLET mesalamine (LIALDA) 1.2 g EC tablet Take 1 (one) tablet (1.2 g total) by mouth 2 (two) times a day . Take 1 (one) tablet (1.2 g total) by mouth 2 (two) times a day . Discontinued Medications No medications on file Health Maintenance Due Topic Date Due Pap Smear Never done COVID-19 Vaccine (1) Never done Wellness Visit Never done Depression Screening (PHQ-2/9) Never done HIV Screening Never done Hepatitis C Screening Never done Zoster Vaccines (1 of 2) Never done Pneumococcal Vaccine: Ped or At-Risk (2 - PPSV23 if available, else PCV20) 10/12/2015 Mammogram 02/19/2022 Tetanus: Every 10yrs 06/30/2022 Assessment & Plan Problem List Items Addressed This Visit Digestive Ulcerative colitis (HCC) Stable currently, last flare was December 2022, will get records from previous hospitalization. Last colonoscopy was in June 2022 that showed a polyp with tubular adenoma, recall in 3 to 5 years. Currently on Lialda refill Referral to GI with to establish care Relevant Medications loperamide (IMODIUM) 2 mg capsule mesalamine (LIALDA) 1.2 g EC tablet Other Relevant Orders Ambulatory referral to Gastroenterology Cardiovascular and Mediastinum Essential hypertension - Primary Controlled on lisinopril 20 mg as well as amlodipine 10 mg. Decreasing to amlodipine 5 mg given LLswelling She will keep an eye on the blood pressure at home , break tab in half and will follow up on BP login a Month Relevant Medications furosemide (LASIX) 20 MG tablet Other Relevant Orders TSH with Reflex Free T4 Microalbumin/Creatinine Ratio, UR Random Lipid Panel Comprehensive Metabolic Panel NT PRO BNP Other Mid back pain Most likely related to muscle spasms flaring up with overuse, heavy weight lifting and increased weight gain. Does have degenerative disc disease based on previous imaging. Heat , icing and massage Stretching exercises at home Topicals as lidocaine, biofreeze , bengay . Voltaren gel 4 times a day as needed Tylenol 1000 mg every 8 hours , flexeril ordered today instead of baclofen. meloxicam didn't help. Gabapentin decreased to 300 x 3 times a day to see if it helps. switching to Lyrica and weaning of gabapentin. Xray of mid back today came back showing arthritis in thoracic and lumbar vertebrae Referral for PT Discontinued gabapentin, might consider MRI and referral to pain management Relevant Medications pregabalin (LYRICA) 50 MG capsule gabapentin (NEURONTIN) 300 MG capsule Other Relevant Orders Ambulatory Ref to [facility] (PT/OT[facility]ST) Drugs of Abuse Screen, Urine Edema of both legs Elevated legs whenever possible Decrease amlodipine dose Compression stockings Echo ordered given family history of heart disease and HTN personal history Follow up on blood work and symptoms control Relevant Medications furosemide (LASIX) 20 MG tablet Other Relevant Orders Echocardiogram complete NT PRO BNP Other Visit Diagnoses Prediabetes Relevant Orders Hemoglobin A1c Back pain, unspecified back location, unspecified back pain laterality, unspecified chronicity Relevant Medications gabapentin (NEURONTIN) 300 MG capsule I spent 40 minutes with patient reviewing HPI and coordinating plan of care CSA signed today , UDS PENDING Return for 4 weeks phone visit and 3 months in person . GLO AMEZCUA MD [place] [id number] [facility] [address] [place] [id number] Dept: [phone] documented in this [id number] History of Present illness Narrative* Lonnie Jones LPN - 04/22/2023 10:52 AM EDT has asked for lab reminders to be stopped at this time. Pt has an upcoming appt 05/06/23. * Lonnie Jones LPN - 03/10/2023 3:07 PM EDT Reviewed labs placed by on 02/25/23 that are showing they have not yet been completed. Last Hemoglobin A1C completed 01/15/23. Next due 04/17/23. Will set a reminder at that time to remind pt if not yet completed. documented in this [id number] Miscellaneous Notes* Telephone Encounter - Jannie Donaldson RN - 03/12/2023 11:00 AM EDT Patient notified of provider instructions. Patient voiced understanding. Patient scheduled follow visit with Viki on 03/26/2023. Jannie Donaldson RN * Telephone Encounter - Lisa Galicia PA-C - 03/12/2023 10:53 AM EDT Decrease lisinopril to 1/2 tab (10 mg) of once daily and monitor and record BP readings. Please help schedule f/u for BP recheck in 1-2 weeks with PCP office. Contact office sooner if symptoms persisting. Advise ER for any worsening symptoms, dizziness, syncope, chest pain, SOB. Thank you, Lisa Galicia PA-C * Telephone Encounter - Jannie Donaldson RN - 03/12/2023 8:53 AM EDT Patient calls and states that for 3 days she has been somewhat dizzy and had noticed that her bloodpressure has been on lower side 94/59. Patient states that this correlates with when she started taking lisinopril. Patient realized that she was not taking lisinopril and decided to start taking this 3 days ago. Patient takes amlodipine in the morning and the lisinopril at night. Patient is questioning whether she should continue taking lisinopril or at least taking half dose of lisinopril? Patient currently is at work and is not having any issues. Please review and advise, Jannie Donaldson RN [facility]2023 Miscellaneous Notes* Telephone Encounter - Jannie Donaldson RN - 02/18/2023 8:21 AM EDT Patient notified of results and provider's instructions. Patient verbalizes understanding. Jannie Donaldson RN * Telephone Encounter - Tracey Esquivel Ma - 02/18/2023 8:17 AM EDT Called and left message on patients voicemail to return call to the office and ask to speak with a FM triage nurse. Tracey Esquivel Ma * Telephone Encounter - Khadijah Curran MD - 02/17/2023 7:24 PM EDT Please notify patient that her pelvic US does show swelling on the left side of her pelvis; I wouldrecommend Inspector Salvage consult for further evaluation of this. Khadijah Curran MD documented in this encounterWayne Hospital04-03-2023 Miscellaneous Notes* Telephone Encounter - Mathieu Velasco APRN.DORIAN - 01/27/2023 9:13 AM EDT The following approved medication requests have been transmitted electronically. Requested Prescriptions Pending Prescriptions Disp Refills gabapentin (NEURONTIN) 600 mg tablet 90 tablet 3 Sig: Take 1 tablet by mouth three times daily for 90 days. Mathieu Velasco APRN.DORIAN * Telephone Encounter - Phoebe Morris - 01/27/2023 8:46 AM EDT Patient has been identified by name and date of : Yes Requested Prescriptions Pending Prescriptions Disp Refills gabapentin (NEURONTIN) 600 mg tablet 90 tablet 3 Sig: Take 1 tablet by mouth three times daily for 90 days. LUIS-01/15/23 Labs-01/15/23 NOV-01/27/23 med filled 09/30/22 RX INSTRUCTIONS: Patient aware RX will be sent to pharmacy. No need to notify patient. Phoebe Zaman Pss documented in this encounterWayne Hospital03-28-2023 Miscellaneous Notes* Telephone Encounter - Claire Virk Ma - 01/21/2023 8:54 AM EDT Pt notified. Is thinking about Pain Management. Will get back to office if she decides to be referred. Claire Virk Ma * Telephone Encounter - Khadijah Curran MD - 01/20/2023 7:48 PM EDT I am not able to refill [place] for her, as she has had inconsistent drug screens in the past with chronic use. She would need to see Pain Management in order to get further pain medications or treatment. Khadijah Curran MD * Telephone Encounter - Jane Thorpe Pss - 01/20/2023 1:42 PM EDT Patient called back to see if Dr. Curran had approved this rx yet. Advised her it is still pending. She would like a call at [phone] if/when approved and sent to pharmacy. * Telephone Encounter - Tracey Esquivel Ma - 01/20/2023 1:06 PM EDT Pt was given [place] during admission for back pain. This is a chronic issue and was d/c due to abnormal tox screens and medication not showing up in her urine. Is this something you are wanting to Rx to pt? Tracey Esquivel Ma * Telephone Encounter - Opal Montez RN - 01/20/2023 8:18 AM EDT Patient calls to request [place] prescription ordered by Dr. Blankenship with [facility] be sent to [facility] by provider. Currently sent to [facility] and they don't have prescription in stock. Patient declined hospital follow up appointment because she had one on 01/15/23 with V[facility] Hernandez and was then readmitted to [facility]. Pended prescription for review. Opal Montez RN documented in this encounterWayne Hospital03-27-2023 History of Present illness Narrative* Tiera Ford RN - 01/20/2023 12:28 PM EDT TRANSITIONAL CARE MANAGEMENT (TCM) COMMUNITY MONITORING PROGRAM Provider Action/FYI: Spoke to patient States abdominal pain improving Denies N/V Appetite improving Adequate po fluid intake Reviewed new and changed medications, taking as directed. Transitions of Care Critical Issues: IMAGING FOLLOW-UP: Pelvic US recommended to follow up on CT Abd/Pelvis results SPECIALIST FOLLOW-UP: Gastroenterology SANCHEZ MEDICATION CHANGES: Cefdinir 300 mg BID for 7 days, Metronidazole 500mg TID for 7+ days, Lialda 2.4 grams daily, [place] 5/325 1 po QID prn (#12). Hold Amlodipine and Lisinopril Holding as directed SUMMARY: Pt discharged from [facility] on 01/18/2023. Admitted for: sepsis, colitis with severe dehydration Contact made with patient: Yes Hi my name is Tiera Ford RN and I am calling [facility] on behalf of your PCP, Khadijah Curran MD I understand you were recently in the hospital so I am calling to check in with you to ensure you are feeling well now that you're home. May I ask you a few questions related to your hospital stay and well-being? Yes Contact with patient post discharge, spoke to patient. Patient identified by name and . Do you feel your health is BETTER, WORSE, or the SAME since leaving the hospital? Better ACTION TAKEN: Patient indicated symptoms are better or same, no action required. Continue outreach. MEDICATIONS: Many patients have questions or concerns about their medications once they are home. Do you have any questions about taking your medications or which medication you should be on? No Do you need any medication refills at this time, including any of the medications you might take only when needed? No ACTION TAKEN: No action required For RNs or Pharmacy completing outreach ONLY, was a medication review completed? Yes SOCIAL: We would like to make sure you have what you need so that your basics needs are met - including your personal safety, food, housing and medications. Would you like to speak with a social work senior engineering team leader to help give you support for any of these needs? No It can be normal to feel anxious or down during a time like this. Would you like to talk to a mental health professional about how you have been feeling? No ACTION TAKEN: No action taken DISCHARGE INTRUCTIONS: Your discharge instructions / After Visit Summary (AVS) are important in guiding you through the recovery process. Do you have any questions related to your discharge instructions? No Do you have all the necessary equipment and supplies at home? Yes ACTION TAKEN: No action required I would like to help you schedule a hospital follow-up virtual or telephone visit with your PCP. This is a great way for you to connect with your provider to ensure you have safely transitioned home.If you are agreeable, I will send your request to a ticket scheduler who will contact and assist you with that appointment. This will give you an opportunity to ask any questions or address any concerns youmay have with your PCP. Inform the patient that if they have any questions or concerns prior to that appointment, to call their PCP's office right away. ACTION TAKEN: No action required, patient already has an appointment scheduled. Your doctor would like us to remind you of the recommendations regarding the coronavirus (Covid19) outbreak: Avoid public places as much as possible. Avoid close contact (within 6 feet) with others you don t live with, especially if they are sick. Stay home if you are sick. Wash your hands regularly for at least 20 seconds with soap and water. Wear a cloth mask in public places to help reduce community spread. Do not go to your Doctor s office unless instructed to do so. For any non- emergency symptoms, call your Doctor s office to get instructions on how to manage (we might recommend a telephone or virtualvisit). For emergency symptoms, proceed to Emergency Department as usual but inform them of cough and fever symptoms EVELIO if present (or call on the way if possible). KENNY Education Ordered -: No .marlen * Tiera Ford RN - 01/20/2023 12:27 PM EDT TCM Home Visit Referral Source of Stratification: [facility] Admission Status: Discharged Readmission Risk Score: 15 CONI Score: 2 Patient meets program referral criteria: No Patient does not qualify for High Risk TCM Home Visit program due to: Discharged home, does not meet program criteria documented in this encounterWayne Hospital03-24-2023 NoteHNO ID: [id number] Author: Josh Blankenship Jr., MD Service: Hospital Medicine Author Type: Physician Type: Progress Notes Filed: 01/17/2023 7:13 PM Note Text: DEPARTMENT OF HOSPITAL MEDICINE PROGRESS NOTE SERVICE DATE: 01/17/2023 SERVICE TIME: 7:11 PM Hospital Medicine/Primary Attending: Josh Blankenship Jr.,* NIGHT AND WEEKEND COVERAGE: [employer] COVERAGE: Days: [phone], please page attending physician. Nights: [phone], please page [facility] Hospitalist Night coverage pager [phone]. Subjective INTERVAL HPI: Patient continues to note decrease in frequency of BMs. Abdominal pain better. No visible blood in stool. Current Facility-Administered Medications Medication Dose Route Frequency NaCl 0.9% iv flush bag 20 mL INTRAVENOUS PRN pantoprazole DR 40 mg tab(s) (PROTONIX) 40 mg ORAL DAILY (6 AM) DULoxetine 60 mg cap(s) (CYMBALTA) 60 mg ORAL DAILY heparin 5,000 Units injection 5,000 Units SUBCUTANEOUS q 12 H lidocaine 4 % 1 Patch (SALONPAS) 1 Patch TRANSDERMAL DAILY AT 9 PM And lidocaine patch - REMOVE OTHER DAILY And lidocaine - VERIFY PATCH OTHER q 8 H gabapentin 600 mg tab(s) (NEURONTIN) 600 mg ORAL TID HYDROcodone 5 mg - acetaminophen 325 mg tablet (NORCO) 1 tablet ORAL q 6 H PRN metroNIDAZOLE iv piggyback 500 mg in NaCl (iso-osmotic) 100 mL (FLAGYL) 500 mg INTRAVENOUS q 8 H cefTRIAXone iv piggyback 1 g in dextrose (iso-osmotic) 50 mL (ROCEPHIN) 1 g INTRAVENOUS q 24 H Objective PHYSICAL EXAM: BP 140/76 Pulse 81 Temp (Src) 97.9 (Oral) Resp 17 Ht 5' 7 (1.70m) Wt 190 lb 7.6 oz (86.4kg) SpO2 97% LMP 07/14/2013 BMI 29.83 kg/(m2). O2 Therapy: Room Air Physical Exam Performed GENERAL: well appearing, in no acute distress EYES: PERRLA, EOMI, Conjunctiva clear MOUTH and THROAT: membranes moist HEART: regular rate and rhythm, S1 and S2, no murmur LUNGS: clear to auscultation; no rales or wheezes ABDOMEN: Soft, bowel sounds normal, no masses, nontender EXTREMITY: no edema; no erythema NEURO: Alert and Oriented x3; Nonfocal PSYCH: Appropriate mood; Cooperative Lines, Drains, and Airways Line Duration Peripheral 01/15/232002 Assessment Right Antecubital 20 Gauge 1 day DATA: Diagnostic tests reviewed for today's visit: Most recent labs Most recent imaging Reviewed outpatient office notes and last ED visit Assessment/Plan Problem List Severe sepsis (HCC) POA: Yes Colitis POA: Yes Ulcerative colitis (HCC) POA: Yes BRIJESH (acute kidney injury) (HCC) POA: Yes Dehydration POA: Yes Essential hypertension POA: Yes Chronic low back pain POA: Yes Anxiety and depression POA: Yes Smoker POA: Yes HOSPITAL COURSE: This is a 57 year old female, with a PMH of Ulcerative Colitis, Chronic Diastolic CHF, HTN, Anxiety/Depression and smoking, who presented to the ED on 01/15/23 with persistent diarrhea and hypotension. She had been admitted to [facility] 01/09 - 01/11/23 for frequent diarrhea. Those records are not available but the patient stated she was given IVFs and no antibiotics. She reported a long-standing history of Ulcerative Colitis with routine colonoscopies. She had been on Budesonide and Asacol in the past. She stated that after her last colonoscopy in 07/2022, her restaurant greeter advised her to stop taking her UC medications. She was seen for a follow-up visit at her PCP's office on 01/15. She reported continued diarrhea, 6-8 episodes per day. She denied any blood or mucus in her stool. No fevers or chills. Her BP dropped to 70/50 and she was sent to the ED for evaluation (patient refused EMS). In the ED, she was afebrile and SBP was 70. Na 135, K 4.2, Cr 3.5, LFTs nl. Lactate 1.0 - 0.4, WBC 20.4, Hgb 13.0. AB.30/34/68/16/90% (metabolic acidosis). CTA Chest showed NAD. CT Abd/Pelvis showed colonic wall thickening and edema from the transverse colon to the rectum consistent with colitis and a partially calcified left adnexal lesion and possible left hydrosalpinx (non-emergent Pelvis US recommended). The patient was given a sepsis bolus of IVFs (2750 mL) and IV Zosyn/Vancomycin prior to admission to the ICU. Her blood pressure stabilized and she did not require any pressors. GI was consulted. She was treated with IV Rocephin/Metronidazole. By 01/16, her WBC improved to 15.7 and Cr to 1.7. Frequency of her watery BMs had improved. She still noted some diffuse abdominal cramping. Stool studies were ordered. She was transferred to a medical bed. Stool occult and Fecal Lactoferrin (+). C Diff PCR, Crypto/Giardia Ags and Enteric Pathogens PCR were negative. She continued to feel improved on 01/17 and was advanced to a GI Diet. GI planned to start Asacol 800 mg three times daily upon discharge Principal Problem: Severe sepsis (HCC) Assessment AND Plan: Presented with leukocytosis, BRIJESH and hypotension Responded to sepsis fluid bolus No pressors needed BP stabilized after fluid Likely due to colitis (more content not included)...[facility] [id number] NoteHNO ID: [id number] Author: Josh Blankenship Jr., MD Service: Hospital Medicine Author Type: Physician Type: Progress Notes Filed: 01/16/2023 4:02 PM Note Text: DEPARTMENT OF HOSPITAL MEDICINE PROGRESS NOTE SERVICE DATE: 01/16/2023 SERVICE TIME: 3:57 PM Hospital Medicine/Primary Attending: Ghulam Kirk MD NIGHT AND WEEKEND COVERAGE: [employer] COVERAGE: Days: [phone], please page attending physician. Nights: [phone], please page [facility] Hospitalist Night coverage pager [phone]. Subjective INTERVAL HPI: Patient notes continued diffuse abdominal pain, but less severe. Watery diarrhea persists, but not as frequent. No blood in BMs. No fevers. Current Facility-Administered Medications Medication Dose Route Frequency NaCl 0.9% iv flush bag 20 mL INTRAVENOUS PRN pantoprazole DR 40 mg tab(s) (PROTONIX) 40 mg ORAL DAILY (6 AM) DULoxetine 60 mg cap(s) (CYMBALTA) 60 mg ORAL DAILY heparin 5,000 Units injection 5,000 Units SUBCUTANEOUS q 12 H lidocaine 4 % 1 Patch (SALONPAS) 1 Patch TRANSDERMAL DAILY AT 9 PM And lidocaine patch - REMOVE OTHER DAILY And lidocaine - VERIFY PATCH OTHER q 8 H gabapentin 600 mg tab(s) (NEURONTIN) 600 mg ORAL TID HYDROcodone 5 mg - acetaminophen 325 mg tablet (NORCO) 1 tablet ORAL q 6 H PRN metroNIDAZOLE iv piggyback 500 mg in NaCl (iso-osmotic) 100 mL (FLAGYL) 500 mg INTRAVENOUS q 8 H cefTRIAXone iv piggyback 1 g in dextrose (iso-osmotic) 50 mL (ROCEPHIN) 1 g INTRAVENOUS q 24 H Objective PHYSICAL EXAM: BP 130/72 Pulse 78 Temp (Src) 97 (Temporal) Resp 20 Ht 5' 7 (1.70m) Wt 188 lb 11.4 oz (85.6kg) SpO2 96% LMP 07/14/2013 BMI 29.55 kg/(m2). O2 Therapy: Room Air Physical Exam Performed GENERAL: well appearing, in no acute distress EYES: PERRLA, EOMI, Conjunctiva clear MOUTH and THROAT: membranes moist NECK: supple HEART: regular rate and rhythm, S1 and S2, no murmur LUNGS: clear to auscultation; no rales or wheezes ABDOMEN: Soft, bowel sounds normal, no masses, diffuse mild abdominal tenderness; no guarding or rebound EXTREMITY: no edema; no erythema NEURO: Alert and Oriented x3; Nonfocal PSYCH: Appropriate mood; Cooperative Lines, Drains, and Airways Line Duration Peripheral 01/15/232002 Assessment Right Antecubital 20 Gauge <1 day DATA: Diagnostic tests reviewed for today's visit: Most recent labs Most recent imaging Reviewed outpatient office notes and last ED visit Assessment/Plan Problem List Severe sepsis (HCC) POA: Yes Colitis POA: Yes Ulcerative colitis (HCC) POA: Yes BRIJESH (acute kidney injury) (HCC) POA: Yes Dehydration POA: Yes Essential hypertension POA: Yes Chronic low back pain POA: Yes Anxiety and depression POA: Yes Smoker POA: Yes HOSPITAL COURSE: This is a 57 year old female, with a PMH of Ulcerative Colitis, Chronic Diastolic CHF, HTN, Anxiety/Depression and smoking, who presented to the ED on 01/15/23 with persistent diarrhea and hypotension. She had been admitted to [facility] 01/09 - 01/11/23 for frequent diarrhea. Those records are not available but the patient stated she was given IVFs and no antibiotics. She reported a long-standing history of Ulcerative Colitis with routine colonoscopies. She had been on Budesonide and Asacol in the past. She stated that after her last colonoscopy in 07/2022, her restaurant greeter advised her to stop taking her UC medications. She was seen for a follow-up visit at her PCP's office on 01/15. She reported continued diarrhea, 6-8 episodes per day. She denied any blood or mucus in her stool. No fevers or chills. Her BP dropped to 70/50 and she was sent to the ED for evaluation (patient refused EMS). In the ED, she was afebrile and SBP was 70. Na 135, K 4.2, Cr 3.5, LFTs nl. Lactate 1.0 - 0.4, WBC 20.4, Hgb 13.0. AB.30/34/68/16/90% (metabolic acidosis). CTA Chest showed NAD. CT Abd/Pelvis showed colonic wall thickening and edema from the transverse colon to the rectum consistent with colitis and a partially calcified left adnexal lesion and possible left hydrosalpinx (non-emergent Pelvis US recommended). The patient was given a sepsis bolus of IVFs (2750 mL) and IV Zosyn/Vancomycin prior to admission to the ICU. Her blood pressure stabilized and she did not require any pressors. GI was consulted. She was treated with IV Rocephin/Metronidazole. By 01/16, her WBC improved to 15.7 and Cr to 1.7. Frequency of her watery BMs had improved. She still noted some diffuse abdominal cramping. Stool studies were ordered. She was transferred to a medical bed. Principal Problem: Severe sepsis (HCC) Assessment AND Plan: Presented with leukocytosis, BRIJESH and hypotension Responded to sepsis fluid bolus No pressors needed BP not stable Likely due to colitis and dehydration Active Problems: Colitis Ulcerative colitis (HCC) Assessment AND Plan: CTA Abd/Pelvis showed colonic wall thickening and edema from the transver (more content not included)...[id number] History of Past illness Narrative* Problem Noted Date Resolved Date BRIJESH (acute kidney injury) 01/16/20232022 Dehydration 01/15/2023 01/18/2023 documented as of this encounter (statuses as of 01/20/2023) [facility]03-23-2023 History of Past illness Narrative* Problem Noted Date Resolved Date BRIJESH (acute kidney injury) 01/16/20232022 Dehydration 01/15/2023 01/18/2023 documented as of this encounter (statuses as of 01/21/2023) [facility] History of Past illness Narrative* Problem Noted Date Resolved Date BRIJESH (acute kidney injury) 01/16/20232022 Dehydration 01/15/2023 01/18/2023 documented as of this encounter (statuses as of 01/27/2023) [facility] History of Past illness Narrative* Problem Noted Date Resolved Date BRIJESH (acute kidney injury) 01/16/20232022 Dehydration 01/15/2023 01/18/2023 documented as of this encounter (statuses as of 02/13/2023) [address]-2023 History of Past illness Narrative* Problem Noted Date Resolved Date BRIJESH (acute kidney injury) 01/16/20232022 Dehydration 01/15/2023 01/18/2023 documented as of this encounter (statuses as of 02/13/2023) [address]23-2023 History of Past illness Narrative* Problem Noted Date Resolved Date BRIJESH (acute kidney injury) 01/16/20232022 Dehydration 01/15/2023 01/18/2023 documented as of this encounter (statuses as of 02/18/2023) [address]23-2023 History of Past illness Narrative* Problem Noted Date Resolved Date BRIJESH (acute kidney injury) 01/16/20232022 Dehydration 01/15/2023 01/18/2023 documented as of this encounter (statuses as of 03/12/2023) [address]-2023 History of Past illness Narrative* Problem Noted Date Diagnosed Date Resolved Date BRIJESH (acute kidney injury) 01/16/2023 Dehydration 01/15/2023 01/18/2023 documented as of this encounter (statuses as of 05/26/2023) [address]-2023 History of Past illness Narrative* Problem Noted Date Diagnosed Date Resolved Date BRIJESH (acute kidney injury) 01/16/2023 Dehydration 01/15/2023 01/18/2023 documented as of this encounter (statuses as of 05/30/2023) [address]23-2023 History of Past illness Narrative* Problem Noted Date Diagnosed Date Resolved Date BRIJESH (acute kidney injury) 01/16/2023 Dehydration 01/15/2023 01/18/2023 documented as of this encounter (statuses as of 05/30/2023) [address]23-2023 History of Past illness Narrative* Problem Noted Date Diagnosed Date Resolved Date BRIJESH (acute kidney injury) 01/16/2023 Dehydration 01/15/2023 01/18/2023 documented as of this encounter (statuses as of 05/30/2023) [address]23-2023 History of Past illness Narrative* Problem Noted Date Diagnosed Date Resolved Date BRIJESH (acute kidney injury) 01/16/2023 Dehydration 01/15/2023 01/18/2023 documented as of this encounter (statuses as of 06/12/2023) [address]23-2023 History of Past illness Narrative* Problem Noted Date Diagnosed Date Resolved Date BRIJESH (acute kidney injury) 01/16/2023 Dehydration 01/15/2023 01/18/2023 documented as of this encounter (statuses as of 06/17/2023) [address]23-2023 History of Past illness Narrative* Problem Noted Date Diagnosed Date Resolved Date BRIJESH (acute kidney injury) 01/16/2023 Dehydration 01/15/2023 01/18/2023 documented as of this encounter (statuses as of 06/20/2023) [address]23-2023 History of Past illness Narrative* Problem Noted Date Diagnosed Date Resolved Date BRIJESH (acute kidney injury) 01/16/2023 Dehydration 01/15/2023 01/18/2023 documented as of this encounter (statuses as of 07/10/2023) [address]-2023 History of Past illness Narrative* Problem Noted Date Diagnosed Date Resolved Date BRIJESH (acute kidney injury) 01/16/2023 Dehydration 01/15/2023 01/18/2023 documented as of this encounter (statuses as of 07/16/2023) [address]23-2023 History of Past illness Narrative* Problem Noted Date Diagnosed Date Resolved Date BRIJESH (acute kidney injury) 01/16/2023 Dehydration 01/15/2023 01/18/2023 documented as of this encounter (statuses as of 08/22/2023) [address]23-2023 History of Past illness Narrative* Problem Noted Date Diagnosed Date Resolved Date BRIJESH (acute kidney injury) 01/16/2023 Dehydration 01/15/2023 01/18/2023 documented as of this encounter (statuses as of 09/17/2023) [address]23 History of Past illness Narrative* Problem Noted Date Diagnosed Date Resolved Date BRIJESH (acute kidney injury) 01/16/2023 Dehydration 01/15/2023 01/18/2023 documented as of this encounter (statuses as of 11/28/2023) [facility] History of Past illness Narrative* Problem Noted Date Diagnosed Date Resolved Date BRIJESH (acute kidney injury) 01/16/2023 Dehydration 01/15/2023 01/18/2023 documented as of this encounter (statuses as of 12/01/2023) [facility] History of Past illness Narrative* Problem Noted Date Diagnosed Date Resolved Date BRIJESH (acute kidney injury) 01/16/2023 Dehydration 01/15/2023 01/18/2023 documented as of this encounter (statuses as of 12/26/2023) [facility]03-23-2023 NoteHNO ID: [id number] Author: Ghulam Kirk MD Service: Critical Care Author Type: Physician Type: Progress Notes Filed: 01/16/2023 11:55 AM Note Text: ICU DAILY PROGRESS NOTE Assessment and Plan 57 y/o F with a pmh of ?UC, anxiety, HTN with recent admission to OSH for BRIJESH from diarrhea that was admitted to ICU for BRIJESH and hypotension 2/2 volume depletion and diarrhea. 1. Diarrhea with volume depletion -questionable history of UC, GI consult -check stool PCR -volume resuscitation -ceftriaxone/flagyl 2. BRIJESH -pre-renal from diarrhea and volume loss -improved with fluids -continue to hydrate follow labs -lasix and losartan on hold 3. Severe Sepsis, POA-resolved -suspect from diarrhea -follow cultures, cont, vanc/zosyn -hold home antihypertensives and lasix Heparin Sub Q Transfer to Floor ICU Checklist A= Assess, Prevent, Manage Pain C= Choice of Sedation and Analgesia B= Both Spontaneous Awakening and Breathing Trials D= Delirium: Assess, Prevent and Manage E= Early Mobility/Excercise ICU Mobility: F= Family Engagement and Empowerment ICU Disposition: Prevention: VTE Prophylaxis: This patient has a high probability of sudden, clinically significant deterioration, which requires the highest level of physician preparedness to intervene urgently. I managed/supervised life or organ supporting interventions that required frequent physician assessment. I devoted my full attention to the direct care of this patient for the amount of time indicated below. Time I spent with family or surrogate(s) is included only if the patient was incapable of providing the necessary information or participating in medical decision making. Time devoted to teaching is not included. Critical Care Documentation: The patient has the following organ/system impairment(s): Volume depleletion, BRIJESH Patient/Family Updated: Patient, Gabby Spence, contacted. They were updated on the patient's goals of care, medical plan for the day, project management consultant recommendations, medical disposition and current medical condition/prognosis as and if clinically indicated. All questions and concerns were answered and addressed at this juncture. Plan of care discussed with: Provider, RN, Patient. Time spent providing critical care services: 35 minutes excluding procedures. HPI: 57 y/o F with a pmh of ?UC, anxiety, HTN with recent admission to OSH for BRIJESH from diarrhea that was admitted to ICU for BRIJESH and hypotension 2/2 volume depletion and diarrhea. 01/16-renal function and vitals improved overnight Physical Exam Vital signs reviewed General : in no distress Heart: RRR, no murmurs Lungs: clear to auscultation bilaterally, no wheezes rales, or rhonchi. Equal air entry bilaterally Abdomen: Soft, mildly TTP in the B/L lower quadrants Musculoskeletal: no bony or joint deformity, no cyanosis or clubbing Hemoglobin (g/dL) Date Value 01/16/2023 10.8 02/17/2021 12.3 Hematocrit (%) Date Value 01/16/2023 32.8 02/17/2021 37.3 WBC (k/uL) Date Value 01/16/2023 15.74 02/17/2021 10.34 Relevant Imaging: Portions of this note including HPI, ROS, impression/plan, and examination may have been copied forward as to provide important historical information essential in contributing to medical decision making. Documentation has been reviewed and edited as necessary to support clinical decision making for today's visit and to reflect my own independent evaluation of this patient on 01/16/2023 Ghulam Kirk [id number] NoteHNO ID: [id number] Author: Fidel King MD Service: eHospital Author Type: Physician Type: Progress Notes Filed: 01/15/2023 10:01 PM Note Text: eHospital Provider Note Call Initiation By: Bedside Caregiver: Provider (Dr. Brown) Primary Reason for Call: Admission to ICU;Cardiac / Hemodynamic status;Renal function Primary Reason for Call (Other): 57 yo woman with PMH of UC, HTN, grade I DD and smoking presenting from home with diarrhea, abdominal pain and back pain at home. Found to have severe sepsis and BRIJESH and CT scan showing colitis. BP marginal after 2L IVF in ED. She was recently admitted to [facility] from 01/09-01/11 in setting of Diarrhea and BRIJESH. Stool studies negative during that admission Objective Data:: WBC 20, Cr 3.48 (bl 0.88), HCO3 16, 7.25/39 (VBG), CT abd/pelvis: Colonic wall thickening and edema from the transverse colon to the rectum consistent with colitis Assessment: BRIJESH, colitis, severe sepsis Intervention(s): IV fluids;Laboratory tests;Antimicrobial therapy Plan/Intervention (other): continue zosyn/vancomcyin, recommended additional 1 L LR in ED and fuentes placement. Will repeat chemistry panel upon admission to ICU. NE if needed for MAP goal >65. Repeat infectious stool studies. This patient has the following organ/system impairment(s): : Severe sepsis (BRIJESH) /MARIUM Collaboration: (Torrie Brandt alerted on incoming admission) SIGNATURE: Fidel King MD PATIENT NAME: Gabby Spence DATE: January 15 2023 TIME: 09:40 PMSamaritan [id number] Instructions* Patient Instructions* Viki Hernandez APRN.SLITTER OPERATOR - 01/15/2023 5:03 PM EDT Recommend evaluation in the ER, may need fluids. Lab results pending at this time. Complete stool testing Schedule appointment with Infant Teacher. Stay well hydrated. Follow up pending test results or per ER eval. [facility] History of Present illness Narrative* Viki Hernandez APRN.CNP - 01/15/2023 4:40 PM EDT This is a 57 year old female who presents today with: Patient presents with: Follow Up: Hospital Er follow up HISTORY OF PRESENT ILLNESS: Gabby Spence is a 57 year old female. Patient presents with: Follow Up: Hospital Er follow up Transitional Care Management Progress Note The patients TCM visit was performed within the 7 days of discharge. Patient's Date of discharge: 01/11/2023 Date of initial coordinator contact after discharge: unknown Discharge diagnosis: Dehydration and BRIJESH Medication review completed Yes HOSPITAL/ER FOLLOW UP: Reason for visit: Nausea, vomiting, diarrhea, and generalized weakness. Which facility: [facility] Date of visit: 01/09/2023-01/11/2023 Diagnosis: Dehydration and BRIJESH Testing done: Bun 88, creatinine 5.62. EKG showed normal sinus rhythm, no acute ST elevation. Treatment given: IV fluids Current symptoms: Has been staying hydrated. Has been drinking water, 24 ounces and body armour, 24ounces. No appetite and having on going fatigue. Eating 1 meal per day and snacks. Refers she does not feel well. Has been taking medication as prescribed. Intermittent dizziness when standing up, noLOC. Refers she is not urinating very much. Has urinated 2-3 times per day. Stomach feels upset. NoN/V/ or fever/chills. Diarrhea: 6-8 episodes per day, having to get up at night to have BM. No blood and mucus in the stool. History of ulcerative colitis. Taking imodium 3 times per day which hasn't helped. Following with GI, Dr. Elam in [place]. Needs to schedule a follow up. Neck pain, refers she has arthritis. PAST MEDICAL HISTORY: PAST MEDICAL HISTORY Diagnosis Date Anxiety Back pain Diastolic dysfunction 10/2017 EF 65%, stage 1 diastolic dysfunction per Echo History of colonoscopy 02/25/2008 Done at [facility]/Dr. Vo Ulcerative colitis, unspecified Ulcerative colitis PAST SURGICAL HISTORY Procedure Laterality Date COLONOSCOPY Every 3 years, Dr White in [place] COLONOSCOPY 08/13/2017 EGD, Dr. White, Normal COLONOSCOPY FLX DX W/COLLJ SPEC WHEN PFRMD 08/19/[address] White - info scanned ALLERGIES Wellbutrin [Bupropion Hcl] and Azulfidine [Sulfasalazine] MEDICATIONS Current Outpatient Medications Medication Sig baclofen (LIORESAL) 10 mg tablet Take 1 tablet by mouth three times daily as needed (muscle spasms). DULoxetine (CYMBALTA) 60 mg capsule Take 1 capsule by mouth once daily. pantoprazole DR (PROTONIX) 40 mg tablet TAKE 1 TABLET BY MOUTH DAILY BEFORE BREAKFAST. TAKE 1/2 HOUR BEFORE MEAL gabapentin (NEURONTIN) 600 mg tablet Take 1 tablet by mouth three times daily for 90 days. amLODIPine (NORVASC) 10 mg tablet Take 1 tablet by mouth once daily. ondansetron orally disintegrating (ZOFRAN ODT) 4 mg disintegrating tablet Take 1 tablet by mouth every 6 hours as needed for nausea/vomiting. lisinopril (ZESTRIL, PRINIVIL) 20 mg tablet Take 1 tablet by mouth once daily. budesonide (UCERIS) 9 mg TaDE Take 1 tablet by mouth once daily. furosemide (LASIX) 20 mg tablet Take 1 tablet by mouth once daily. No current facility-administered medications for this visit. FAMILY HISTORY Problem Relation Age of Onset Cancer Mother Cancer Father Heart disease Brother 3 brothers - 52years old 53 yesr old and 54 years old Social History Tobacco Use Smoking status: Every Day Types: Cigarettes Start date: 10/27/1981 Smokeless tobacco: Never Tobacco comments: Cut back to 9-10 cigarettes per day Vaping Use Vaping Use: Never used Substance Use Topics Alcohol use: Yes Comment: once in a while Drug use: No REVIEW OF SYSTEMS GENERAL: + Fatigue/General Illness HEENT: Negative for frequent or significant headaches, No changes in hearing or vision. NECK: Negative for lumps, goiter, pain and significant neck swelling RESPIRATORY: Negative for cough, hemoptysis, wheezing, dyspnea or shortness of breath CARDIOVASCULAR: Negative for chest pain, leg swelling, orthopnea, or palpitations GI: + Diarrhea : No history of dysuria, frequency or incontinence MUSCULOSKELETAL: Negative for joint pain or swelling. SKIN: Negative for lesions, rash, and itching ENDOCRINE: Negative for cold or heat intolerance, polyuria, polydipsia and goiter NEURO: No history of headaches, syncope, paralysis, seizures or tremors MOOD: Negative for depression, anxiety, or suicidal ideation. EXAM: BP 90/60 Pulse 97 Temp 36.7 C (98 F) (Left Tympanic) Resp 16 Wt 85.3 kg (188 lb) LMP 07/14/2013 SpO2 98% BMI 29.67 kg/m BP (!) 70/52 Pulse 97 Temp 36.7 C (98 F) (Left Tympanic) Resp 16 Wt 85.3 kg (188 lb) LMP 07/14/2013 SpO2 98% BMI 29.67 kg/m PHYSICAL EXAM: General Appearance: Ill appearing, alert, in no acute distress, well-hydrated, well nourished.. Skin: Skin color, texture, turgor normal, no suspicious rashes or lesions. Head: Normocephalic, no masses, lesions, tenderness or abnormalities. Eyes: Anicteric sclera. Pupils are equally round and reactive to light. Extraocular movements are intact. . Oropharynx: Positive findings: decreased moisture noted on oral mucosa. Lungs: Lungs clear to auscultation. No wheezing, rhonchi, rales. Heart: RRR without murmur, gallop, or rubs. No ectopy. Extremities: No deformities, edema, skin discoloration, clubbing or cyanosis. Good capillary refill. . Musculoskeletal: Cervical and thoracic spine tenderness with palpation. Peripheral Pulses: Capillary refill <2secs, strong peripheral pulses, Pulses palpable. Neurologic: Gait normal. Sensation grossly intact. + Dizziness with standing to examine back. Checked BP and was extremely low. ASSESSMENT/PLAN: 1. Hospital discharge follow-up - ICD9: V67.59, ICD10: Z09 (primary diagnosis) - Still having on going symptoms since discharge. - Lab results currently pending. 2. Dizziness - ICD9: 780.4, ICD10: R42 - Symptomatic in the office. - Drop in BP, recommend evaluation by ER, denied wanting to be transported via EMS. 3. Dehydration - ICD9: 276.51, ICD10: E86.0 - Concerns she may be dehydrated at this time due to excessive diarrhea. May need IV fluids. - Instructed to go to ER. 4. Diarrhea, unspecified type - ICD9: 787.91, ICD10: R19.7 - Get stool testing completed. - Follow up with GI - ENTERIC BACTERIAL PANEL BY PCR - OVA + PARA MICROSCOPIC - C. DIFFICILE PCR - CALPROTECTIN,FECAL Follow-up pending test results or ER evaluation. Discussed treatment plan and patient voices understanding. Patient's questions answered appropriately. Medications and potential side effects were discussed and patient voices understanding. Viki Hernandez APRN.DORIAN This note was partially generated using [employer] voice recognition system. Note was reviewed for accuracy. There may be minor misspellings or grammar miscues with [employer] voice recognition. documented in this encounterWayne Hospital03-20-2023 History of Present illness Narrative* Sandy Landrum LPN - 01/13/2023 9:56 AM EDT TRANSITION CARE MANAGEMENT (TCM) INITIAL CONTACT Continuous Improvement Coach Outreach Provider Action/FYI: Pt doing well and will be in for appt on 01/15/23 at 4:40pm Initial contact with patient post discharge, spoke to patient. Patient identified by name and . TRANSITION CARE MANAGEMENT INITIAL OUTREACH DOCUMENTATION: No flowsheet data found. SUMMARY: -Pt discharged from [facility] on 01/11/23. -Admitted for: Dehydration and BRIJESH Do you have a hospital follow up appointment with your PCP? Appointment on 01/15/23 with A David . Yes. Remind patient of appointment date, time, and location. If not within 14 calendar days of discharge - please reschedule accordingly. MEDICATIONS: Many patients have questions or concerns about their medications once they are home. Were you prescribed any new medications? No Were you told to hold any medications? No Were any of your medications discontinued? No Do you have any questions about getting or taking your medications? No Your discharge instructions/After visit Summary (AVS) are important in guiding you through the recovery process. Is there anything I might help you understand? No Do you have all the necessary equipment and supplies at home? Yes Medical records from recent hospitalization: Epic documented in this encounterWayne Hospital03-18-[address] [facility] January 11, 2023 10:48am Note Date/Time January 11, 2023 10: 48am [facility] Medical Records Department [address] [place] [address] Instructions for Home/Discharge Instructions 01/11/23 1047 MR#: [id number] Acct: [id number] Name: GABBY SPENCE Rep #:[id number] : 1965 57 From: Michelle Richter MD PCP: Dr. Khadijah Curran MD Status:AD M IN Discharge Instructions Diet Discharge Diet: Low fat / Low cholesterol Activity Discharge Activity: Return to Normal Activity Weight Bearing Status: Weight bearing as tolerated Dressing / Incision Call your doctor if you observe: Fever of 101 or Higher, Shortness of breath, Dizziness, Swelling in the ankles and - (uncontrolled diarrhea) Follow Up Care Test Results: Test results from this visit will be discussed in further detail at your follow- up appointment, if applicable. Discharge Plan Admission Admit Date/Time: 01/09/23 12:26 Primary Reason for Your Visit: BRIJESH, diarrhea Attending Provider: Michelle Richter Primary Care Provider: Khadijah Curran Consulting Providers: Jose Hinojosa Instructions Patient Instructions: ED Diarrhea, Viral (Adult) Discharge Orders/Prescriptions Prescriptions: Continued lisinopril 20 MG tablet 20 mg PO QHS amlodipine 10 MG tablet 10 mg PO DAILY furosemide 20 MG tablet 20 mg PO DAILY gabapentin 600 mg tablet 600 mg PO TID cyanocobalamin (vitamin B-12) [Vitamin B-12] 1,000 mcg Tablet 3,000 mcg PO DAILY naproxen sodium [Aleve] 220 mg Tablet 440 mg PO BID duloxetine 60 mg capsule,delayed release(DR/EC) 60 mg PO DAILY Daily Fiber (psyllium-aspart) 3.4 gram powder in packet 1 packet PO BID Centrum Silver Women 8 mg iron-400 mcg-300 mcg Tablet 1 tab PO DAILY loperamide 2 MG capsule 2 mg PO DAILY pantoprazole 40 MG tablet,delayed release (DR/EC) 40 mg PO DAILY zinc acetate 50 mg (zinc) Capsule 50 mg PO DAILY cholecalciferol (vitamin D3) 25 mcg (1,000 unit) Tablet 25 mcg PO DAILY Referrals / Follow Up: Khadijah Curran MD [Primary Care Provider] - Within 2 Weeks Disposition Disposition (needs filled in before D/C Order can be placed): Home, Self Care 01/11/23 1048<Electronically signed by Michelle Richter MD>Michelle Richter MD CC: Dr. Khadijah Curran MD; Dr. Jose Hinojosa MD ~ Signed [facility] Work Phone: [phone] Hinojosa [facility] January 10, 2023 9:18am Note Date/Time January 10, 2023 9:1 8am [facility] Medical Records Department [address] [place] [address] Progress Note - Hospitalist 01/10/2316 MR#: [id number] Acct: [id number] Name: GABBY SPENCE Rep #:[id number] : 1965 57 From: Jose bradshaw MD PCP: Dr. Khadijah Curran MD Status:AD M IN Location: [facility] [id number] Subjective Subjective Feels much better, has had increased urine output and her urine has cleared a little bit Objective Data Objective Data Vital Signs: Vital Signs Temp Pulse Resp BP Pulse Ox O2 Del Method 98.3 F 77 17 109/64 95 Room Air 01/10/23 03:15 01/10/23 03:15 01/10/23 03:15 01/10/23 03:15 01/10/23 03:15 01/10/23 03:15 Oxygen Delivery Method Room Air Weight: 193 lb 6.4 oz Body Mass Index (BMI) 30.2 Intake & Output: Intake and Output for Last 24 Hours 01/09/23 01/10/23 01/11/23 03:59 03:59 03:59 Intake Total 3325 / 3325 1145 / 1145 Balance 3325 / 3325 1145 / 1145 Lab / Micro Data Result Diagrams: 01/10/23 04:40 01/10/23 04:40 Labs: Laboratory Results - last 24 hr 01/09/23 11:05: WBC 13.5 H, RBC 4.48, Hgb 13.6, Hct 40.8, MCV 91.1, MCH 30.4, MCHC 33.3, RDW Std Deviation 44.2 H, RDW Coeff of Tristian 13.2, Plt Count 336, MPV 8.6, Immature Gran % (Auto) 0.700, Neut % (Auto) 64.2, Lymph % (Auto) 25.8, [place]% (Auto) 5.5, Eos % (Auto) 3.3, Baso % (Auto) 0.5, Absolute Neuts (auto) 8.7 H, Absolute Lymphs (auto) 3.48, Nucleated RBC % 0 01/09/23 11:05: Sodium 133 L, Potassium 5.4 H, Chloride 96 L, Carbon Dioxide 21.0, Anion Gap 16 H, BUN 88 H, Creatinine 5.62 H, Estim Creat Clear Calc 10.74,Est GFR (MDRD) Af Amer 10 L, Est GFR (MDRD) Non-Af 8 L, BUN/Creatinine Ratio 15.7, Glucose 118 H, Calcium 9.0 01/09/23 14:07: Urine Color Yellow, Urine Clarity Clear, Urine pH 5.0, Ur Specific [place] 1.015, Urine Protein 15 H, Urine Glucose (UA) Normal, Urine Ketones Negative, Urine Occult Blood 10 H, Urine Nitrite Negative, Urine Bilirubin Negative, Urine Urobilinogen Normal, Ur Leukocyte Esterase Negative, Urine RBC 0-5 SEEN, Urine WBC 0 SEEN, Ur Squamous Epith Cells 0-5 SEEN, Urine Bacteria RARE, Urine Mucus 0 SEEN 01/10/23 04:40: WBC 11.1 H, RBC 3.41 L, Hgb 10.2 L, Hct 31.8 L, MCV 93.3, MCH 29.9, MCHC 32.1, RDW Std Deviation 45.7 H, RDW Coeff of Tristian 13.4, Plt Count 291,MPV 9.1, Immature Gran % (Auto) 0.500, Neut % (Auto) 54.1, Lymph % (Auto) 35.2, [place] % (Auto) 6.3, Eos % (Auto) 3.3, Baso % (Auto) 0.6, Absolute Neuts (auto) 6.0, Absolute Lymphs (auto) 3.91, Nucleated RBC % 0 01/10/23 04:40: Sodium 143, Potassium 4.8, Chloride 116 H, Carbon Dioxide 21.0, Anion Gap 6, BUN 70 H, Creatinine 1.50 H, Estim Creat Clear Calc 40.24, Est GFR (MDRD) Af Amer 46 L, Est GFR (MDRD) Non-Af 38 L, BUN/Creatinine Ratio 46.7 H, Glucose 100, Calcium 8.7 Physical Exam Narrative General: Alert, Oriented x3, Cooperative, No apparent distress HEENT: Atraumatic, PERRLA, EOMI, Normocephalic Oral: 1 mucosa Neck: Supple, No JVD Lungs: Clear to auscultation, Normal air movement, No rhonchi, No wheeze, No rales Cardiovascular: Regular rate, Regular Rhythm, Normal S1, Normal S2, No murmurs Abdomen: Soft, Non Tender, Non-Distended, No Hepato-splenomegaly Extremities: No edema, Capillary Refill Less than 3 Seconds Skin: No rashes, No breakdown Musculoskeletal: No Tenderness to Palpation of Joints or Extremities Neurological: Cranial nerves II-XII grossly intact, Motor Exam 5/5 strength throughout, Sensory exam intact to light touch and pain Psych/Mental Status: Normal Affect, Appropriate Assessment & Plan Assessment/Plan (1) Dehydration: (2) BRIJESH (acute kidney injury): PLAN: Plan 1. Acute renal failure from dehydration secondary to nausea, vomiting, diarrheapossible gastroenteritis versus medications in conjunction with diarrhea from IBD versus IBS ? Her med list does demonstrate mesalamine and there is a documented history of ulcerative colitis though colonoscopy in July 2022 was negative, she states that she used to be on Asacol but this was discontinued and that her PCP provides her with prednisone on occasion whenever she has diarrhea ? Continue with aggressive fluids ? Hemoglobin is back to baseline at 1.5 ? We will hold her Lasix and her lisinopril ? Stool studies are still pending, would recommend referral to local GI 2. Hypertension ? Blood pressure stable ? She had an echo in 2017 with a normal EF and a stage I diastolic dysfunction ? We will hold her Lasix or lisinopril 3. Anxiety/depression/irritable bowel syndrome ? Stable ? Continue with citalopram 4. GERD ? Stable ? Continue with PPI DVT: SCDs Charges/Coding Visit Charges Inpatient E&M: 10353 Subs Hosp L2 01/10/23 0918 <Electronically signed by Jose Hinojosa MD> Cosigner Signature (if applicable): CC: ~ Signed [facility] Work Phone: 1([phone]) [phone] History and physical note Author Dr. Hinojosa [facility] January 09, 2023 3:52pm Note Date/Time January 09, 2023 12: 35pm [facility] Medical Records Department [address] [place] [address] H&P Exam - Hospitalist 01/09/23 1229 MR#: [id number] Acct: [id number] Name: GABBY SPENCE Rep #:[id number] : 1965 57 From: Jose bradshaw MD PCP: Dr. Khadijah Curran MD Status:AD M IN Location: [facility] [place]403-4 HPI - General General Date of Admission: 01/09/23 HPI Narrative GABBY SPENCE, is a 57 F who presents with weakness. She does have a history of irritable bowel syndrome and she also states that she has been told she has ulcerative colitis, and has periodic episodes of diarrhea and then on occasion can also have some nausea and vomiting. 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 She is been having these issues for the last several months but did get worse recently. She states that she had a colonoscopy in July 2022 that was essentially normal. She is also on Lasix and lisinopril, she is unaware as to why she is on Lasix her last echo did not show any signs of heart failure with normal EF and a stage I diastolic dysfunction. She states that she has been taking her medications even during her episodes of diarrhea and nausea and vomiting. In the ER she is found to have acute renal failure with a creatinine of over 5 and a potassium of 5.4. She was given 2 L of fluid in the ER. ON LICENSE OF [facility] Medical History (Updated 01/09/23 @ 14:50 by Angelique Fu) Anxiety Substance abuse Home Medications lisinopril 20 mg tablet 20 mg PO QHS BLOOD PRESSURE 02/18/17 [History Last Taken 01/08/23] amlodipine 10 mg tablet 10 mg PO DAILY BLOOD PRESSURE 07/20/19 [History Last Taken 01/09/23] furosemide 20 mg tablet 20 mg PO DAILY FLUID 05/25/20 [History Last Taken 01/09/23] cholecalciferol (vitamin D3) 25 mcg (1,000 unit) tablet 25 mcg PO DAILY SUPPLEMENT 01/09/23 [History Last Taken 01/09/23] cyanocobalamin (vitamin B-12) 1,000 mcg tablet (Vitamin B-12) 3,000 mcg PO DAILYSUPPLEMENT 01/09/23 [History Last Taken 01/09/23] duloxetine 60 mg capsule,delayed release 60 mg PO DAILY DEPRESSION 01/09/23 [History Last Taken 01/08/23] gabapentin 600 mg tablet 600 mg PO TID NERVE PAIN 01/09/23 [History Last Taken 01/09/23 05:00] loperamide 2 mg capsule 2 mg PO DAILY DIARRHEA 01/09/23 [History Last Taken 01/09/23] multivit with hqhcrxfy-vsxj-RA-lutein 8 mg iron-400 mcg-300 mcg tablet (Centrum Silver Women) 1 tab PO DAILY HEALTH MAINTENANCE 01/09/23 [History Last Taken 01/09/23] naproxen sodium 220 mg tablet (Aleve) 440 mg PO BID BACK PAIN 01/09/23 [History Last Taken 01/09/23] pantoprazole 40 mg tablet,delayed release 40 mg PO DAILY ACID REFLUX 01/09/23 [History Last Taken 01/09/23] psyllium husk (aspartame) 3.4 gram oral powder packet (Daily Fiber (psyllium-aspartame)) 1 packet PO BID DIARRHEA 01/09/23 [History Last Taken 01/09/23] zinc acetate 50 mg (zinc) capsule 50 mg PO DAILY SUPPLEMENT 01/09/23 [History Last Taken 01/09/23] Allergy/AdvReac Type Severity Reaction Status Date / Time sulfadiazine Allergy Rash Verified 01/09/23 09:55 Family History (Updated 01/09/23 @ 15:[address] Jose Hinojosa MD) Other Colon cancer Heart disease no surgical history Social History Smoking Status: Current every day smoker tobacco type: cigarettes ROS Constitutional Constitutional: Reports fatigue; Denies chills, fever(s) or malaise Eyes Eyes: Denies blurry vision ENT HEENT: Denies headache(s) or nasal discharge Cardiovascular Cardiovascular: Denies chest pain, dyspnea on exertion or syncope Respiratory/Chest Respiratory/Chest: Denies cough, shortness of breath at rest or shortness of breath with exertion Gastrointestinal Gastrointestinal: Reports diarrhea, nausea and vomiting; Denies constipation Genitourinary Genitourinary: Denies dysuria Neurologic Neurologic: Denies focal weakness, numbness or tremor(s) Psychiatric Psychiatric: Denies anxiety or depression Vital Signs Vital Signs Vital Signs: 01/09/23 09:53 01/09/23 09:55 01/09/23 09:55 Temperature 98 F 97.6 F L Temperature Source Temporal Temporal Pulse Rate 84 63 Respiratory Rate 18 18 Respiratory Pattern Normal Blood Pressure 91/57 L 91/57 L Blood Pressure Mean 68 68 Pulse Ox 100 99 Oxygen Delivery Method Room Air Room Air 01/09/23 12:18 Temperature Temperature Source Pulse Rate 75 Respiratory Rate 18 Respiratory Pattern Blood Pressure 139/84 H Blood Pressure Mean 102 Pulse Ox 99 Oxygen Delivery Method Room Air Weight Weight: 193 lb Body Mass Index (BMI) 30.2 Physical Exam Narrative General: Alert, Oriented x3, Cooperative, No apparent distress HEENT: Atraumatic, PERRLA, EOMI, Normocephalic Oral: Dry mucosa Neck: Supple, No JVD Lungs: Clear to auscultation, Normal air movement, No rhonchi, No wheeze, No rales Cardiovascular: Regular rate, Regular Rhythm, Normal S1, Normal S2, No murmurs Abdomen: Soft, Non Tender, Non-Distended, No Hepato-splenomegaly Extremities: No edema, Capillary Refill Less than 3 Seconds Skin: No rashes, No breakdown Musculoskeletal: No Tenderness to Palpation of Joints or Extremities Neurological: Cranial nerves II-XII grossly intact, Motor Exam 5/5 strength throughout, Sensory exam intact to light touch and pain Psych/Mental Status: Normal Affect, Appropriate Results Lab / Micro Data Result Diagrams: 01/09/23 11:05 01/09/23 11:05 Labs: Laboratory Results - last 24 hr 01/09/23 11:05: WBC 13.5 H, RBC 4.48, Hgb 13.6, Hct 40.8, MCV 91.1, MCH 30.4, MCHC 33.3, RDW Std Deviation 44.2 H, RDW Coeff of Tristian 13.2, Plt Count 336, MPV 8.6, Immature Gran % (Auto) 0.700, Neut % (Auto) 64.2, Lymph % (Auto) 25.8, [place]% (Auto) 5.5, Eos % (Auto) 3.3, Baso % (Auto) 0.5, Absolute Neuts (auto) 8.7 H, Absolute Lymphs (auto) 3.48, Nucleated RBC % 0 01/09/23 11:05: Sodium 133 L, Potassium 5.4 H, Chloride 96 L, Carbon Dioxide 21.0, Anion Gap 16 H, BUN 88 H, Creatinine 5.62 H, Estim Creat Clear Calc 10.74,Est GFR (MDRD) Af Amer 10 L, Est GFR (MDRD) Non-Af 8 L, BUN/Creatinine Ratio 15.7, Glucose 118 H, Calcium 9.0 Assessment & Plan Assessment/Plan (1) Dehydration: (2) BRIJESH (acute kidney injury): PLAN: Plan 1. Acute renal failure from dehydration secondary to nausea, vomiting, diarrheapossible gastroenteritis versus medications in conjunction with diarrhea from IBD versus IBS ? Her med list does demonstrate mesalamine and there is a documented history of ulcerative colitis though colonoscopy in July 2022 was negative, she states that she used to be on Asacol but this was discontinued and that her PCP provides her with prednisone on occasion whenever she has diarrhea ? Continue with aggressive fluids ? We will recheck renal function in the morning ? We will hold her Lasix and her lisinopril 2. Hypertension ? Blood pressure stable ? She had an echo in 2018 with a normal EF and a stage I diastolic dysfunction ? We will hold her Lasix or lisinopril 3. Anxiety/depression/irritable bowel syndrome ? Stable ? Continue with citalopram 4. GERD ? Stable ? Continue with PPI DVT: SCDs Charges/Coding Visit Charges Inpatient E&M: 52763 Init Hosp L2 01/09/23 3126 <Electronically signed by Jose Hinojosa MD> Cosigner Signature (if applicable): CC: Dr. Khadijah Curran MD; Dr. Jose Hinojosa MD~ Signed [facility] Work Phone: 1(655) 514-186003-16-2023 Discharge summary Author Nick Chaidez [facility] January 09, 2023 3:50pm Note Date/Time January 09, 2023 10: 27am [facility] Medical Records Department [address] [place] [address] Emergency Department Summary 01/09/23 MR#: [id number] Acct: [id number] Name: GABBY SPENCE Rep #:[id number] : 1965 57 From: Tyrel Denny MD PCP: Dr. Khadijah Curran MD Status:AD M IN [place]: [facility] [id number] [facility] <Dr. Tyrel Denny MD - Last Filed: 01/09/23 12:31> History of Present Illness Chief Complaint: Weakness Informant: patient Narrative Narrative: Patient's presents with nausea vomiting diarrhea and generalized weakness. She states she has had a lifelong problem with irritable bowel syndrome and diarrhea. This waxes and wanes. Her last colonoscopy was July 2022 that evidently showed no acute process. She has been on mesalamine for this. But itsounds like she does not have Crohn's or ulcerative colitis. She states her symptoms wax and wane. She has been getting more diarrhea over the last couple months. She has seen her doctors about this. Over the last week or so she has had a little bit more of the vomiting. All the symptoms are common for her theyjust sometimes get worse and she has a history of getting dehydrated. She got lightheaded yesterday. She just feels tired today. She has not seen blood in the stool. She has not had fevers or chills. She is not having abdominal pain. Of note, patient is on Lasix at 20 mg a day and is still taking this. She has never had heart disease or history of congestive heart failure. She does not know for what reason she takes this but has been on it for 2 or 3 years. When asked, she does seem to have a decreased volume of urine but there is no dysuriaor odor. ON LICENSE OF [facility] <Dr. Tyrel Denny MD - Last Filed: 01/09/23 12:31> ON LICENSE OF [facility] Medical History (Updated 01/09/23 @ 14:50 by Angelique Fu) Anxiety Substance abuse Home Medications lisinopril 20 mg tablet 20 mg PO QHS BLOOD PRESSURE 02/18/17 [History Last Taken 01/08/23] amlodipine 10 mg tablet 10 mg PO DAILY BLOOD PRESSURE 07/20/19 [History Last Taken 01/09/23] furosemide 20 mg tablet 20 mg PO DAILY FLUID 05/25/20 [History Last Taken 01/09/23] cholecalciferol (vitamin D3) 25 mcg (1,000 unit) tablet 25 mcg PO DAILY SUPPLEMENT 01/09/23 [History Last Taken 01/09/23] cyanocobalamin (vitamin B-12) 1,000 mcg tablet (Vitamin B-12) 3,000 mcg PO DAILYSUPPLEMENT 01/09/23 [History Last Taken 01/09/23] duloxetine 60 mg capsule,delayed release 60 mg PO DAILY DEPRESSION 01/09/23 [History Last Taken 01/08/23] gabapentin 600 mg tablet 600 mg PO TID NERVE PAIN 01/09/23 [History Last Taken 01/09/23 05:00] loperamide 2 mg capsule 2 mg PO DAILY DIARRHEA 01/09/23 [History Last Taken 01/09/23] multivit with tdilpkje-cyck-GI-lutein 8 mg iron-400 mcg-300 mcg tablet (Centrum Silver Women) 1 tab PO DAILY HEALTH MAINTENANCE 01/09/23 [History Last Taken 01/09/23] naproxen sodium 220 mg tablet (Aleve) 440 mg PO BID BACK PAIN 01/09/23 [History Last Taken 01/09/23] pantoprazole 40 mg tablet,delayed release 40 mg PO DAILY ACID REFLUX 01/09/23 [History Last Taken 01/09/23] psyllium husk (aspartame) 3.4 gram oral powder packet (Daily Fiber (psyllium-aspartame)) 1 packet PO BID DIARRHEA 01/09/23 [History Last Taken 01/09/23] zinc acetate 50 mg (zinc) capsule 50 mg PO DAILY SUPPLEMENT 01/09/23 [History Last Taken 01/09/23] Allergy/AdvReac Type Severity Reaction Status Date / Time sulfadiazine Allergy Rash Verified 01/09/23 09:55 Family History (Updated 01/09/23 @ 15:[address] Jose Hinojosa MD) Other Colon cancer Heart disease Social History Smoking Status: Current every day smoker tobacco type: cigarettes ROS <Dr. Tyrel Denny MD - Last Filed: 01/09/23 12:31> ROS ED Constitutional Constitutional ED: Denies chills, fever(s) or subjective Eyes Eyes: Denies change in vision or diplopia ENT ENT ED: Denies rhinorrhea or sore throat Cardiovascular Cardiovascular: Denies chest pain, palpitations or racing heartbeat Respiratory/Chest Respiratory/Chest: Denies cough or dyspnea Gastrointestinal Gastrointestinal: Reports diarrhea, nausea and vomiting; Denies abdominal pain, constipation or melena Genitourinary Genitourinary ED: Denies dysuria or urinary frequency Musculoskeletal Musculoskeletal: Denies myalgias Integumentary Denies rash Neurologic Neurologic: Denies headache(s) Endocrine Endocrinology: Denies polydipsia or polyuria Hematologic/Lymphatic Hematologic/Lymphatic: Denies easy bleeding or easy bruising Allergic/Immunologic Allergic/Immunologic ED: Denies urticaria EXAM <Dr. Tyrel Denny MD - Last Filed: 01/09/23 12:31> Physical Exam Narrative Exam Narrative: Patient awake alert no acute distress. HEENT: No sign of trauma. She is well made up and appropriately groomed. Mucous membranes are somewhat dry. Neck shows no JVD Lungs are completely clear bilaterally. No rales. Heart is regular with a rate of about 80. I hear no murmur gallop or rub. Peripheral pulses are equal. Abdomen is soft nondistended has normal bowel sounds and is completely nontenderin all areas. shows no CVA or suprapubic tenderness on exam. Extremities show no edema or tenderness. Skin is not pale or jaundiced diaphoretic. Neurologically she is awake alert and appropriate. There is no focal weakness. Const Vital Signs: 01/09/23 09:53 01/09/23 09:55 01/09/23 09:55 Temperature 98 F 97.6 F L Temperature Source Temporal Temporal Pulse Rate 84 63 Respiratory Rate 18 18 Respiratory Pattern Normal Blood Pressure 91/57 L 91/57 L Blood Pressure Mean 68 68 Pulse Ox 100 99 Oxygen Delivery Method Room Air Room Air 01/09/23 12:18 Temperature Temperature Source Pulse Rate 75 Respiratory Rate 18 Respiratory Pattern Blood Pressure 139/84 H Blood Pressure Mean 102 Pulse Ox 99 Oxygen Delivery Method Room Air <Dr. Nick Chaidez MD - Last Filed: 01/09/23 15:50> Physical Exam Const Vital Signs: 01/09/23 09:53 01/09/23 09:55 01/09/23 09:55 Temperature 98 F 97.6 F L Temperature Source Temporal Temporal Pulse Rate 84 63 Respiratory Rate 18 18 Respiratory Pattern Normal Blood Pressure 91/57 L 91/57 L Blood Pressure Mean 68 68 Pulse Ox 100 99 Oxygen Delivery Method Room Air Room Air 01/09/23 12:18 Temperature Temperature Source Pulse Rate 75 Respiratory Rate 18 Respiratory Pattern Blood Pressure 139/84 H Blood Pressure Mean 102 Pulse Ox 99 Oxygen Delivery Method Room Air MDM <Dr. Tyrel Denny MD - Last Filed: 01/09/23 12:31> MDM MDM Narrative Medical decision making narrative: Patient blood work showing nonspecific mild elevation of her white count. But she denies abdominal pain or fevers. Electrolytes show high potassium at 5.4. This should correct with IV fluids given here. She also had a high BUN and creatinine at 88 and 5.62. My last labs were in 2019. She states she had labs done by another doctor a few weeks ago and was told her cholesterol was high butdoes not recall being told any other problems. I would think of cholesterol waschecked she would likely have had her creatinine checked. But I have no access to these labs. Of note patient is on both Lasix and lisinopril. I have given her IV fluids here and will give her more. I think with her significant acute kidney injury she should come in the hospital and I discussed the case with the hospitalist. Lab Data Attestation: I reviewed the patient's lab results. Labs: Laboratory Results - last 24 hr 01/09/23 01/09/23 11:05 11:05 WBC 13.5 H RBC 4.48 Hgb 13.6 Hct 40.8 MCV 91.1 MCH 30.4 MCHC 33.3 RDW Std Deviation 44.2 H RDW Coeff of Tristian 13.2 Plt Count 336 MPV 8.6 Immature Gran % (Auto) 0.700 Neut % (Auto) 64.2 Lymph % (Auto) 25.8 [place] % (Auto) 5.5 Eos % (Auto) 3.3 Baso % (Auto) 0.5 Absolute Neuts (auto) 8.7 H Absolute Lymphs (auto) 3.48 Nucleated RBC % 0 Sodium 133 L Potassium 5.4 H Chloride 96 L Carbon Dioxide 21.0 Anion Gap 16 H BUN 88 H Creatinine 5.62 H Estim Creat Clear Calc 10.74 Est GFR (MDRD) Af Amer 10 L Est GFR (MDRD) Non-Af 8 L BUN/Creatinine Ratio 15.7 Glucose 118 H Calcium 9.0 EKG Initial EKG: Comments: My independent interpretation of the patient's EKG done for lightheadedness shows a normal sinus rhythm with overall rate of 71. No ventricular ectopy. There is some indication of LVH with secondary changes. Noacute ST elevation. MA interval, QRS duration and QTc are normal. Management Discussion w/another healthcare provider: Hospitalist <Dr. Nick Chaidez MD - Last Filed: 01/09/23 15:50> [facility] Lab Data Labs: Laboratory Results - last 24 hr 01/09/23 01/09/23 11:05 11:05 WBC 13.5 H RBC 4.48 Hgb 13.6 Hct 40.8 MCV 91.1 MCH 30.4 MCHC 33.3 RDW Std Deviation 44.2 H RDW Coeff of Tristian 13.2 Plt Count 336 MPV 8.6 Immature Gran % (Auto) 0.700 Neut % (Auto) 64.2 Lymph % (Auto) 25.8 [place] % (Auto) 5.5 Eos % (Auto) 3.3 Baso % (Auto) 0.5 Absolute Neuts (auto) 8.7 H Absolute Lymphs (auto) 3.48 Nucleated RBC % 0 Sodium 133 L Potassium 5.4 H Chloride 96 L Carbon Dioxide 21.0 Anion Gap 16 H BUN 88 H Creatinine 5.62 H Estim Creat Clear Calc 10.74 Est GFR (MDRD) Af Amer 10 L Est GFR (MDRD) Non-Af 8 L BUN/Creatinine Ratio 15.7 Glucose 118 H Calcium 9.0 Treatment and Re-Evaluation Comments:: I did not participate in the care of this pt; inadvertently clicked on chart. -Kaylynn Discharge Plan Dx/Rx/DC Orders Clinical Impression: BRIJESH (acute kidney injury), Dehydration, Hyperkalemia, History of IBS, Nausea vomiting and diarrhea Disposition Disposition: Acute Care Hospital [facility] Discharge Date/Time: 01/09/23 14:27 What to do if you have Problems For any increased pain, shortness of breath, bleeding, nausea or vomiting, chestpain, or any unexpected problems, contact your Primary Care Provider. Call [facility] ([phone]) or report to the closest Emergency Room. Call 911 if necessary. 01/09/23 1232 <Electronically signed by Tyrel Denny MD> Cosigner Signature (if applicable): 01/09/23 1550 <Electronically signed by Nick Chaidez MD> CC: Dr. Khadijah Curran MD ~ Signed [facility] Work Phone: 1(604) 235-436803-16-2023 History of Present illness Narrative* Guru Scanlon APRN.DORIAN - 01/09/2023 4:59 PM EDT Patient triaged at [facility]. Here today with diarrhea, weakness, fainting. Looks very ill. I will refer to ER. to drive pov. Unclear what ER will go to at this time. [facility]* Addendum Note - Glo Amezcua MD - 01/02/2023 12:57 PM ESTAddended by: GLO AMEZCUA on: 01/02/2023 12:57 PM Modules accepted: Orders [id number] Miscellaneous Notes* Addendum Note - Glo Amezcua MD - 01/02/2023 12:57 PM ESTAddended by: GLO AMEZCUA on: 01/02/2023 12:57 PM Modules accepted: Orders * Addendum Note - Glo Amezcua MD - 12/24/2022 10:40 PM EST Addended by: GLO AMEZCUA on: 12/24/2022 10:40 PM Modules accepted: Orders * Assessment & Plan Note - Glo Amezcua MD - 12/24/2022 5:03 PM ESTAssociated Problem(s): Smoker Will explore that in the next visit * Assessment & Plan Note - Glo Amezcua MD - 12/24/2022 5:00 PM ESTAssociated Problem(s): Diarrhea Postinfectious diarrhea lingering for the past 4 months. Could be related to worsening IBS postinfection, need to rule out other underlying metabolic etiologies. Infection work-up for diarrhea discussed with patient today agreeable to proceed Check for other food allergies and if it is related to ulcerative colitis. Discontinue PPI for concern of possible C. difficile related to PPI use. Treating epigastric pain and gastritis with famotidine. Review previous colonoscopy and EGD that was done before the bout of her current diarrhea and abdominal pain. Treating IBS with Metamucil until we get further records from GI. * Assessment & Plan Note - Glo Amzecua MD - 12/24/2022 4:59 PM ESTAssociated Problem(s): Ulcerative colitis (HCC) Previously diagnosed with ulcerative colitis, confirmed with GI on recurrent colonoscopies. We will need to get records from Dr. White her GI specialist for previous colonoscopies and treatments. * Assessment & Plan Note - Glo Amezcua MD - 12/24/2022 4:59 PM ESTAssociated Problem(s): Essential hypertension Controlled on lisinopril 20 mg as well as amlodipine 10 mg. * Assessment & Plan Note - Glo Amezcua MD - 12/24/2022 3:45 PM ESTAssociated Problem(s): Back pain Most likely related to muscle spasms flaring up with overuse, heavy weight lifting and increased weight gain. Does have degenerative disc disease based on previous imaging. Heat , icing and massage Stretching exercises at home Topicals as lidocaine, biofreeze , bengay . Voltaren gel 4 times a day as needed Tylenol 1000 mg every 8 hours , and meloxicam for breakthrough pain Xray of mid back today Referral for PT documented in this [id number] History of Present illness Narrative* Elba Noble MA - 12/25/2022 7:17 AM EST Faxed for records. * Glo Amezcua MD - 12/24/2022 3:07 PM EST Chief Complaint Patient presents with Establish Care HPI: Gabby Hogan 57 y.o. female presenting today as a new patient to establish care. PMH of nicotine dependence, ulcerative colitis, chronic back pain, hypertension Diarrhea: For the past 4 months , has been going for BM about 8-10 times per day , all watery , no formation , non bloody. Had few that looked black/ coffee ground last was 2-3 weeks. Colonoscopy done by in July, no UC changes and was told she has IBS. Immodium Taking eusrus and asacol Diagnosed with UC 20 yrs ago in Back pain: Chronic for years, low and upper back both sides. Worsening with being on her feet for a longtime, sometimes laying in bed. Worse going up steps lean on the grocery cart sometimes. 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 Sometimes shooting pain down her left leg. Denies any red flags with loss of bladder control , dropped foot or saddle anesthesia. Has had incontinence of stool and was brought up to GI attention. Some weakness noticed in both legs might stumble while walking. No past medical history on file. No past surgical history on file. No family history on file. Social History Tobacco Use Smoking status: Every Day Packs/day: 0.50 Types: Cigarettes Smokeless tobacco: Never Substance Use Topics Alcohol use: Not Currently Drug use: Yes Types: Marijuana Comment: off and on Review of Systems Vitals: 12/24/22 1449 BP: 119/79 BP Location: Right arm Patient Position: Sitting BP Cuff Size: X-large Adult Pulse: 92 Resp: 16 Temp: 98.4 F (36.9 C) TempSrc: Temporal SpO2: 93% Weight: 88.5 kg (195 lb) Height: 5' 7 Estimated body mass index is 30.54 kg/m as calculated from the following: Height as of this encounter: 5' 7. Weight as of this encounter: 88.5 kg (195 lb). Physical Exam Constitutional: General: She is not in acute distress. Appearance: She is not ill-appearing. HENT: Head: Normocephalic and atraumatic. Eyes: Extraocular Movements: Extraocular movements intact. Conjunctiva/sclera: Conjunctivae normal. Pupils: Pupils are equal, round, and reactive to light. Cardiovascular: Rate and Rhythm: Normal rate and regular rhythm. Pulses: Normal pulses. Heart sounds: Normal heart sounds. No murmur heard. No gallop. Pulmonary: Effort: Pulmonary effort is normal. Breath sounds: Normal breath sounds. No wheezing, rhonchi or rales. Chest: Chest wall: No tenderness. Abdominal: General: Abdomen is flat. Bowel sounds are normal. There is no distension. Palpations: Abdomen is soft. There is no mass. Tenderness: There is abdominal tenderness (Epigastric and LLQ). There is no right CVA tenderness, left CVA tenderness, guarding or rebound. Musculoskeletal: General: No tenderness. Normal range of motion. Cervical back: Normal range of motion and neck supple. No rigidity. No muscular tenderness. Right lower leg: No edema. Left lower leg: No edema. Lymphadenopathy: Cervical: No cervical adenopathy. Skin: General: Skin is warm. Findings: No erythema or rash. Neurological: General: No focal deficit present. Mental Status: She is alert and oriented to person, place, and time. Sensory: No sensory deficit. Motor: No weakness. Gait: Gait normal. Psychiatric: Mood and Affect: Mood normal. Behavior: Behavior normal. Thought Content: Thought content normal. Judgment: Judgment normal. OARRS/NARxCHECK Report Received and Assessed: No data found Date controlled substance agreement signed: No data found Date of last drug screen: No data found Functional Assessment: No data found PHQ9: Over the last 2 weeks, how often have you been bothered by any of the following problems? Little interest or pleasure in doing things: More than half the days PHQ-2 Total Score: 2 Trouble falling or staying asleep, or sleeping too much: Several days Feeling tired or having little energy: More than half the days Poor appetite or overeating: Not at all Feeling bad about yourself - or that you are a failure or have let yourself or your family down: Not at all Trouble concentrating on things, such as reading the newspaper or watching television: Several days Moving or speaking so slowly that other people could have noticed. Or the opposite - being so fidgety or restless that you have been moving around a lot more than usual: Not at all Thoughts that you would be better off , or of hurting yourself in some way: Not at all JOSE-7 Over the last 2 weeks, how often have you been bothered by the following problems? Feeling nervous, anxious or on edge: Not at all Trouble relaxing: Not at all Being so restless that it is hard to sit still: Not at all Becoming easily annoyed or irritable: Not at all Feeling afraid as if something awful might happen: Not at all Tobacco Counseling: Ready to quit: Not Answered Counseling given: Not Answered Patient's Medications New Prescriptions MELOXICAM (MOBIC) 15 MG TABLET Take 1 (one) tablet (15 mg total) by mouth daily . PSYLLIUM (METAMUCIL) PACK Take 1 (one) packet by mouth 2 (two) times a day . Previous Medications AMLODIPINE (NORVASC) 10 MG TABLET Take 1 (one) tablet (10 mg total) by mouth daily . DULOXETINE (CYMBALTA) 60 MG CAPSULE Take 1 (one) capsule (60 mg total) by mouth daily . FAMOTIDINE (PEPCID) 40 MG TABLET Take 1 (one) tablet (40 mg total) by mouth daily . FUROSEMIDE (LASIX) 20 MG TABLET Take 1 (one) tablet (20 mg total) by mouth daily . GABAPENTIN (NEURONTIN) 300 MG CAPSULE Take 1 (one) capsule (300 mg total) by mouth 3 (three) times a day . LISINOPRIL (PRINIVIL,ZESTRIL) 20 MG TABLET Take 1 (one) tablet (20 mg total) by mouth daily . Modified Medications No medications on file Discontinued Medications PANTOPRAZOLE (PROTONIX) 40 MG TABLET TAKE 1 TABLET BY MOUTH DAILY BEFORE BREAKFAST. TAKE 1/2 HOUR BEFORE MEAL Health Maintenance Due Topic Date Due Colorectal Cancer Screening/Monitoring Never done Pap Smear Never done COVID-19 Vaccine (1) Never done Wellness Visit Never done Depression Screening (PHQ-2/9) Never done HIV Screening Never done Hepatitis C Screening Never done Mammogram Never done Zoster Vaccines (1 of 2) Never done Pneumococcal Vaccine: Ped or At-Risk (2 - PPSV23 if available, else PCV20) 08/17/2016 Sequential Influenza Vaccine (1) 06/27/2022 Tetanus: Every 10yrs 06/30/2022 Assessment & Plan Problem List Items Addressed This Visit Digestive Ulcerative colitis (HCC) Previously diagnosed with ulcerative colitis, confirmed with GI on recurrent colonoscopies. We will need to get records from Dr. White her GI specialist for previous colonoscopies and treatments. Relevant Medications meloxicam (MOBIC) 15 MG tablet Cardiovascular and Mediastinum Essential hypertension Controlled on lisinopril 20 mg as well as amlodipine 10 mg. Relevant Medications amLODIPine (NORVASC) 10 MG tablet furosemide (LASIX) 20 MG tablet lisinopriL (PRINIVIL,ZESTRIL) 20 MG tablet Other Relevant Orders Lipid Panel Microalbumin/Creatinine Ratio, UR Random Other Back pain Most likely related to muscle spasms flaring up with overuse, heavy weight lifting and increased weight gain. Does have degenerative disc disease based on previous imaging. Heat , icing and massage Stretching exercises at home Topicals as lidocaine, biofreeze , bengay . Voltaren gel 4 times a day as needed Tylenol 1000 mg every 8 hours , and meloxicam for breakthrough pain Xray of mid back today Referral for PT Relevant Medications meloxicam (MOBIC) 15 MG tablet Other Relevant Orders Ambulatory Ref to [facility] (PT/OT/ST) XR Thoracic Spine 3 Views (Standard) XR Lumbar Spine 2-3 Views (Standard) Smoker Will explore that in the next visit Diarrhea - Primary Postinfectious diarrhea lingering for the past 4 months. Could be related to worsening IBS postinfection, need to rule out other underlying metabolic etiologies. Infection work-up for diarrhea discussed with patient today agreeable to proceed Check for other food allergies and if it is related to ulcerative colitis. Discontinue PPI for concern of possible C. difficile related to PPI use. Treating epigastric pain and gastritis with famotidine. Review previous colonoscopy and EGD that was done before the bout of her current diarrhea and abdominal pain. Treating IBS with Metamucil until we get further records from GI. Relevant Medications psyllium (METAMUCIL) Pack Other Relevant Orders Urinalysis Tissue Transglutaminase, IgA TSH with Reflex Free T4 CBC and Differential CRP, Inflammation Sedimentation Rate Comprehensive Metabolic Panel Stool/GI PCR Panel Clostridium Difficile Testing Lipase Return in about 6 weeks (around 02/04/2023) for Follow Up, 40 mins . GLO AMEZCUA MD [facility] [address] [facility] [address] [facility] [address] Dept: [phone] documented in this [id number] History of Present illness Narrative* Elba Noble MA - 12/25/2022 7:17 AM EST Faxed for records. * Glo Amezcua MD - 12/24/2022 3:07 PM EST Chief Complaint Patient presents with [facility] HPI: Gabby Hogan 57 y.o. female presenting today as a new patient [facility]. PMH of nicotine dependence, ulcerative colitis, chronic back pain, hypertension Diarrhea: For the past 4 months , has been going for BM about 8-10 times per day , all watery , no formation , non bloody. Had few that looked black/ coffee ground last was 2-3 weeks. Colonoscopy done by in July, no UC changes and was told she has IBS. Immodium Taking eusrus and asacol Diagnosed with UC 20 yrs ago in Back pain: Chronic for years, low and upper back both sides. Worsening with being on her feet for a longtime, sometimes laying in bed. Worse going up steps lean on the grocery cart sometimes. 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 Sometimes shooting pain down her left leg. Denies any red flags with loss of bladder control , dropped foot or saddle anesthesia. Has had incontinence of stool and was brought up to GI attention. Some weakness noticed in both legs might stumble while walking. No past medical history on file. No past surgical history on file. No family history on file. Social History Tobacco Use Smoking status: Every Day Packs/day: 0.50 Types: Cigarettes Smokeless tobacco: Never Substance Use Topics Alcohol use: Not Currently Drug use: Yes Types: Marijuana Comment: off and on Review of Systems Vitals: 12/24/22 1449 BP: 119/79 BP Location: Right arm Patient Position: Sitting BP Cuff Size: X-large Adult Pulse: 92 Resp: 16 Temp: 98.4 F (36.9 C) TempSrc: Temporal SpO2: 93% Weight: 88.5 kg (195 lb) Height: 5' 7 Estimated body mass index is 30.54 kg/m as calculated from the following: Height as of this encounter: 5' 7. Weight as of this encounter: 88.5 kg (195 lb). Physical Exam Constitutional: General: She is not in acute distress. Appearance: She is not ill-appearing. HENT: Head: Normocephalic and atraumatic. Eyes: Extraocular Movements: Extraocular movements intact. Conjunctiva/sclera: Conjunctivae normal. Pupils: Pupils are equal, round, and reactive to light. Cardiovascular: Rate and Rhythm: Normal rate and regular rhythm. Pulses: Normal pulses. Heart sounds: Normal heart sounds. No murmur heard. No gallop. Pulmonary: Effort: Pulmonary effort is normal. Breath sounds: Normal breath sounds. No wheezing, rhonchi or rales. Chest: Chest wall: No tenderness. Abdominal: General: Abdomen is flat. Bowel sounds are normal. There is no distension. Palpations: Abdomen is soft. There is no mass. Tenderness: There is abdominal tenderness (Epigastric and LLQ). There is no right CVA tenderness, left CVA tenderness, guarding or rebound. Musculoskeletal: General: No tenderness. Normal range of motion. Cervical back: Normal range of motion and neck supple. No rigidity. No muscular tenderness. Right lower leg: No edema. Left lower leg: No edema. Lymphadenopathy: Cervical: No cervical adenopathy. Skin: General: Skin is warm. Findings: No erythema or rash. Neurological: General: No focal deficit present. Mental Status: She is alert and oriented to person, place, and time. Sensory: No sensory deficit. Motor: No weakness. Gait: Gait normal. Psychiatric: Mood and Affect: Mood normal. Behavior: Behavior normal. Thought Content: Thought content normal. Judgment: Judgment normal. OARRS/NARxCHECK Report Received and Assessed: No data found Date controlled substance agreement signed: No data found Date of last drug screen: No data found Functional Assessment: No data found PHQ9: Over the last 2 weeks, how often have you been bothered by any of the following problems? Little interest or pleasure in doing things: More than half the days PHQ-2 Total Score: 2 Trouble falling or staying asleep, or sleeping too much: Several days Feeling tired or having little energy: More than half the days Poor appetite or overeating: Not at all Feeling bad about yourself - or that you are a failure or have let yourself or your family down: Not at all Trouble concentrating on things, such as reading the newspaper or watching television: Several days Moving or speaking so slowly that other people could have noticed. Or the opposite - being so fidgety or restless that you have been moving around a lot more than usual: Not at all Thoughts that you would be better off , or of hurting yourself in some way: Not at all JOSE-7 Over the last 2 weeks, how often have you been bothered by the following problems? Feeling nervous, anxious or on edge: Not at all Trouble relaxing: Not at all Being so restless that it is hard to sit still: Not at all Becoming easily annoyed or irritable: Not at all Feeling afraid as if something awful might happen: Not at all Tobacco Counseling: Ready to quit: Not Answered Counseling given: Not Answered Patient's Medications New Prescriptions MELOXICAM (MOBIC) 15 MG TABLET Take 1 (one) tablet (15 mg total) by mouth daily . PSYLLIUM (METAMUCIL) PACK Take 1 (one) packet by mouth 2 (two) times a day . Previous Medications AMLODIPINE (NORVASC) 10 MG TABLET Take 1 (one) tablet (10 mg total) by mouth daily . DULOXETINE (CYMBALTA) 60 MG CAPSULE Take 1 (one) capsule (60 mg total) by mouth daily . FAMOTIDINE (PEPCID) 40 MG TABLET Take 1 (one) tablet (40 mg total) by mouth daily . FUROSEMIDE (LASIX) 20 MG TABLET Take 1 (one) tablet (20 mg total) by mouth daily . GABAPENTIN (NEURONTIN) 300 MG CAPSULE Take 1 (one) capsule (300 mg total) by mouth 3 (three) times a day . LISINOPRIL (PRINIVIL,ZESTRIL) 20 MG TABLET Take 1 (one) tablet (20 mg total) by mouth daily . Modified Medications No medications on file Discontinued Medications PANTOPRAZOLE (PROTONIX) 40 MG TABLET TAKE 1 TABLET BY MOUTH DAILY BEFORE BREAKFAST. TAKE 1/2 HOUR BEFORE MEAL Health Maintenance Due Topic Date Due Colorectal Cancer Screening/Monitoring Never done Pap Smear Never done COVID-19 Vaccine (1) Never done Wellness Visit Never done Depression Screening (PHQ-2/9) Never done HIV Screening Never done Hepatitis C Screening Never done Mammogram Never done Zoster Vaccines (1 of 2) Never done Pneumococcal Vaccine: Ped or At-Risk (2 - PPSV23 if available, else PCV20) 08/17/2016 Sequential Influenza Vaccine (1) 06/27/2022 Tetanus: Every 10yrs 06/30/2022 Assessment & Plan Problem List Items Addressed This Visit Digestive Ulcerative colitis (HCC) Previously diagnosed with ulcerative colitis, confirmed with GI on recurrent colonoscopies. We will need to get records from Dr. White her GI specialist for previous colonoscopies and treatments. Relevant Medications meloxicam (MOBIC) 15 MG tablet Cardiovascular and Mediastinum Essential hypertension Controlled on lisinopril 20 mg as well as amlodipine 10 mg. Relevant Medications amLODIPine (NORVASC) 10 MG tablet furosemide (LASIX) 20 MG tablet lisinopriL (PRINIVIL,ZESTRIL) 20 MG tablet Other Relevant Orders Lipid Panel Microalbumin/Creatinine Ratio, UR Random Other Back pain Most likely related to muscle spasms flaring up with overuse, heavy weight lifting and increased weight gain. Does have degenerative disc disease based on previous imaging. Heat , icing and massage Stretching exercises at home Topicals as lidocaine, biofreeze , bengay . Voltaren gel 4 times a day as needed Tylenol 1000 mg every 8 hours , and meloxicam for breakthrough pain Xray of mid back today Referral for PT Relevant Medications meloxicam (MOBIC) 15 MG tablet Other Relevant Orders Ambulatory Ref to [facility] (PT/OT/ST) XR Thoracic Spine 3 Views (Standard) XR Lumbar Spine 2-3 Views (Standard) Smoker Will explore that in the next visit Diarrhea - Primary Postinfectious diarrhea lingering for the past 4 months. Could be related to worsening IBS postinfection, need to rule out other underlying metabolic etiologies. Infection work-up for diarrhea discussed with patient today agreeable to proceed Check for other food allergies and if it is related to ulcerative colitis. Discontinue PPI for concern of possible C. difficile related to PPI use. Treating epigastric pain and gastritis with famotidine. Review previous colonoscopy and EGD that was done before the bout of her current diarrhea and abdominal pain. Treating IBS with Metamucil until we get further records from GI. Relevant Medications psyllium (METAMUCIL) Pack Other Relevant Orders Urinalysis Tissue Transglutaminase, IgA TSH with Reflex Free T4 CBC and Differential CRP, Inflammation Sedimentation Rate Comprehensive Metabolic Panel Stool/GI PCR Panel Clostridium Difficile Testing Lipase Return in about 6 weeks (around 02/04/2023) for Follow Up, 40 mins . GLO AMEZCUA MD [facility] [address] [facility] [address] [facility] [address] Dept: [phone] documented in this [id number] Note* Addendum Note - Glo Amezcua MD - 12/24/2022 10:40 PM ESTAddended by: GLO AMEZCUA on: 12/24/2022 10:40 PM Modules accepted: Orders [id number] Note* Addendum Note - Glo Amezcua MD - 12/24/2022 10:40 PM ESTAddended by: GLO AMEZCUA on: 12/24/2022 10:40 PM Modules accepted: Orders [id number] Miscellaneous Notes* Addendum Note - Glo Amezcua MD - 12/24/2022 10:40 PM ESTAddended by: GLO AMEZCUA on: 12/24/2022 10:40 PM Modules accepted: Orders * Assessment & Plan Note - Glo Amezcua MD - 12/24/2022 5:03 PM ESTAssociated Problem(s): Smoker Will explore that in the next visit * Assessment & Plan Note - Glo Amezcua MD - 12/24/2022 5:00 PM ESTAssociated Problem(s): Diarrhea Postinfectious diarrhea lingering for the past 4 months. Could be related to worsening IBS postinfection, need to rule out other underlying metabolic etiologies. Infection work-up for diarrhea discussed with patient today agreeable to proceed Check for other food allergies and if it is related to ulcerative colitis. Discontinue PPI for concern of possible C. difficile related to PPI use. Treating epigastric pain and gastritis with famotidine. Review previous colonoscopy and EGD that was done before the bout of her current diarrhea and abdominal pain. Treating IBS with Metamucil until we get further records from GI. * Assessment & Plan Note - Glo Amezcua MD - 12/24/2022 4:59 PM ESTAssociated Problem(s): Ulcerative colitis (HCC) Previously diagnosed with ulcerative colitis, confirmed with GI on recurrent colonoscopies. We will need to get records from Dr. White her GI specialist for previous colonoscopies and treatments. * Assessment & Plan Note - Glo Amezcua MD - 12/24/2022 4:59 PM ESTAssociated Problem(s): Essential hypertension Controlled on lisinopril 20 mg as well as amlodipine 10 mg. * Assessment & Plan Note - Glo Amezcua MD - 12/24/2022 3:45 PM ESTAssociated Problem(s): Back pain Most likely related to muscle spasms flaring up with overuse, heavy weight lifting and increased weight gain. Does have degenerative disc disease based on previous imaging. Heat , icing and massage Stretching exercises at home Topicals as lidocaine, biofreeze , bengay . Voltaren gel 4 times a day as needed Tylenol 1000 mg every 8 hours , and meloxicam for breakthrough pain Xray of mid back today Referral for PT documented in this [id number] Evaluation + Plan note* Assessment & Plan Note - Glo Amezcua MD - 12/24/2022 5:03 PM ESTAssociated Problem(s): Smoker Will explore that in the next visit [id number] Miscellaneous Notes* Assessment & Plan Note - Glo Amezcua MD - 12/24/2022 5:03 PM ESTAssociated Problem(s): Smoker Will explore that in the next visit * Assessment & Plan Note - Glo Amezcua MD - 12/24/2022 5:00 PM ESTAssociated Problem(s): Diarrhea Postinfectious diarrhea lingering for the past 4 months. Could be related to worsening IBS postinfection, need to rule out other underlying metabolic etiologies. Infection work-up for diarrhea discussed with patient today agreeable to proceed Check for other food allergies and if it is related to ulcerative colitis. Discontinue PPI for concern of possible C. difficile related to PPI use. Treating epigastric pain and gastritis with famotidine. Review previous colonoscopy and EGD that was done before the bout of her current diarrhea and abdominal pain. Treating IBS with Metamucil until we get further records from GI. * Assessment & Plan Note - Glo Amezcua MD - 12/24/2022 4:59 PM ESTAssociated Problem(s): Ulcerative colitis (HCC) Previously diagnosed with ulcerative colitis, confirmed with GI on recurrent colonoscopies. We will need to get records from Dr. White her GI specialist for previous colonoscopies and treatments. * Assessment & Plan Note - Glo Amezcua MD - 12/24/2022 4:59 PM ESTAssociated Problem(s): Essential hypertension Controlled on lisinopril 20 mg as well as amlodipine 10 mg. * Assessment & Plan Note - Glo Amezcua MD - 12/24/2022 3:45 PM ESTAssociated Problem(s): Back pain Most likely related to muscle spasms flaring up with overuse, heavy weight lifting and increased weight gain. Does have degenerative disc disease based on previous imaging. Heat , icing and massage Stretching exercises at home Topicals as lidocaine, biofreeze , bengay . Voltaren gel 4 times a day as needed Tylenol 1000 mg every 8 hours , and meloxicam for breakthrough pain Xray of mid back today Referral for PT documented in this [id number] Evaluation + Plan note* Assessment & Plan Note - Glo Amezcua MD - 12/24/2022 5:00 PM ESTAssociated Problem(s): Diarrhea Postinfectious diarrhea lingering for the past 4 months. Could be related to worsening IBS postinfection, need to rule out other underlying metabolic etiologies. Infection work-up for diarrhea discussed with patient today agreeable to proceed Check for other food allergies and if it is related to ulcerative colitis. Discontinue PPI for concern of possible C. difficile related to PPI use. Treating epigastric pain and gastritis with famotidine. Review previous colonoscopy and EGD that was done before the bout of her current diarrhea and abdominal pain. Treating IBS with Metamucil until we get further records from GI. [id number] Evaluation + Plan note* Assessment & Plan Note - Glo Amezcua MD - 12/24/2022 4:59 PM ESTAssociated Problem(s): Ulcerative colitis (HCC) Previously diagnosed with ulcerative colitis, confirmed with GI on recurrent colonoscopies. We will need to get records from Dr. White her GI specialist for previous colonoscopies and treatments. [id number] Evaluation + Plan note* Assessment & Plan Note - Glo Amezcua MD - 12/24/2022 4:59 PM ESTAssociated Problem(s): Essential hypertension Controlled on lisinopril 20 mg as well as amlodipine 10 mg. [id number] Instructions* Patient Instructions* Glo Amezcua MD - 12/24/2022 3:52 PM EST Problem List Items Addressed This Visit Other Back pain Most likely related to muscle spasms flaring up with overuse and increased weight gain. Heat , icing and massage Stretching exercises at home Topicals as lidocaine, biofreeze , bengay . Voltaren gel 4 times a day as needed Tylenol 1000 mg every 8 hours , and meloxicam for breakthrough pain Xray of mid back today Referral for PT Relevant Medications meloxicam (MOBIC) 15 MG tablet Other Relevant Orders Ambulatory Ref to [facility] (PT/OT/ST) XR Thoracic Spine 3 Views (Standard) XR Lumbar Spine 2-3 Views (Standard) Other Visit Diagnoses Diarrhea, unspecified type - Primary Relevant Medications psyllium (METAMUCIL) Pack Other Relevant Orders Urinalysis Tissue Transglutaminase, IgA TSH with Reflex Free T4 CBC and Differential CRP, Inflammation Sedimentation Rate Comprehensive Metabolic Panel Stool/GI PCR Panel Clostridium Difficile Testing Lipase If any referrals were placed at the time of your visit please allow 2 weeks for processing. If you haven't heard from anyone within 2 weeks please contact my office so we can look into the status of your referral. If you were given any labs today please ensure they are completed according to the directions given. Once labs are completed please allow 1-2 weeks for us to receive the results, review them, and letyou know what steps, if any, are needed next. If you haven't heard from us after that please call to inquire. If labs were ordered to be done PRIOR to your next visit we will discuss the results at the time ofyour office visit. If any procedures or imaging studies were ordered that must be prior authorized please give us 2 weeks to get them approved. Once approved someone should call you to schedule them or give you a date and time that they were scheduled for. If you haven't heard anything within 2 weeks of the office visit please call the office so we can look into their status. Customer Service/Billing Questions: [phone] MyChart Assistance: [phone] or [phone] Financial Assistance: [phone] or [phone] As of November 01, 2019 my schedule will be changing: Friday 7 am to 5 pm Friday 7 am to 5 pm Friday closed 7 am to 5 pm Friday 7 am to 1 pm documented in this [id number] Instructions* Patient Instructions* Glo Amezcua MD - 12/24/2022 3:52 PM EST Problem List Items Addressed This Visit Other Back pain Most likely related to muscle spasms flaring up with overuse and increased weight gain. Heat , icing and massage Stretching exercises at home Topicals as lidocaine, biofreeze , bengay . Voltaren gel 4 times a day as needed Tylenol 1000 mg every 8 hours , and meloxicam for breakthrough pain Xray of mid back today Referral for PT Relevant Medications meloxicam (MOBIC) 15 MG tablet Other Relevant Orders Ambulatory Ref to [facility] (PT/OT/ST) XR Thoracic Spine 3 Views (Standard) XR Lumbar Spine 2-3 Views (Standard) Other Visit Diagnoses Diarrhea, unspecified type - Primary Relevant Medications psyllium (METAMUCIL) Pack Other Relevant Orders Urinalysis Tissue Transglutaminase, IgA TSH with Reflex Free T4 CBC and Differential CRP, Inflammation Sedimentation Rate Comprehensive Metabolic Panel Stool/GI PCR Panel Clostridium Difficile Testing Lipase If any referrals were placed at the time of your visit please allow 2 weeks for processing. If you haven't heard from anyone within 2 weeks please contact my office so we can look into the status of your referral. If you were given any labs today please ensure they are completed according to the directions given. Once labs are completed please allow 1-2 weeks for us to receive the results, review them, and letyou know what steps, if any, are needed next. If you haven't heard from us after that please call to inquire. If labs were ordered to be done PRIOR to your next visit we will discuss the results at the time ofyour office visit. If any procedures or imaging studies were ordered that must be prior authorized please give us 2 weeks to get them approved. Once approved someone should call you to schedule them or give you a date and time that they were scheduled for. If you haven't heard anything within 2 weeks of the office visit please call the office so we can look into their status. Customer Service/Billing Questions: [phone] MyChart Assistance: [phone] or [phone] Financial Assistance: [phone] or [phone] As of November 01, 2019 my schedule will be changing: Friday 7 am to 5 pm Friday 7 am to 5 pm Friday closed 7 am to 5 pm Friday 7 am to 1 pm documented in this [id number] Instructions* Patient Instructions* Glo Amezcua MD - 12/24/2022 3:52 PM EST Problem List Items Addressed This Visit Other Back pain Most likely related to muscle spasms flaring up with overuse and increased weight gain. Heat , icing and massage Stretching exercises at home Topicals as lidocaine, biofreeze , bengay . Voltaren gel 4 times a day as needed Tylenol 1000 mg every 8 hours , and meloxicam for breakthrough pain Xray of mid back today Referral for PT Relevant Medications meloxicam (MOBIC) 15 MG tablet Other Relevant Orders Ambulatory Ref to [facility] (PT/OT/ST) XR Thoracic Spine 3 Views (Standard) XR Lumbar Spine 2-3 Views (Standard) Other Visit Diagnoses Diarrhea, unspecified type - Primary Relevant Medications psyllium (METAMUCIL) Pack Other Relevant Orders Urinalysis Tissue Transglutaminase, IgA TSH with Reflex Free T4 CBC and Differential CRP, Inflammation Sedimentation Rate Comprehensive Metabolic Panel Stool/GI PCR Panel Clostridium Difficile Testing Lipase If any referrals were placed at the time of your visit please allow 2 weeks for processing. If you haven't heard from anyone within 2 weeks please contact my office so we can look into the status of your referral. If you were given any labs today please ensure they are completed according to the directions given. Once labs are completed please allow 1-2 weeks for us to receive the results, review them, and letyou know what steps, if any, are needed next. If you haven't heard from us after that please call to inquire. If labs were ordered to be done PRIOR to your next visit we will discuss the results at the time ofyour office visit. If any procedures or imaging studies were ordered that must be prior authorized please give us 2 weeks to get them approved. Once approved someone should call you to schedule them or give you a date and time that they were scheduled for. If you haven't heard anything within 2 weeks of the office visit please call the office so we can look into their status. Customer Service/Billing Questions: [phone] [facility] Assistance: [phone] or [phone] Financial Assistance: [phone] or [phone] As of November 01, 2019 my schedule will be changing: Friday 7 am to 5 pm Friday 7 am to 5 pm Friday closed 7 am to 5 pm Friday 7 am to 1 pm documented in this [id number] Evaluation + Plan note* Assessment & Plan Note - Glo Amezcua MD - 12/24/2022 3:45 PM ESTAssociated Problem(s): Back pain Most likely related to muscle spasms flaring up with overuse, heavy weight lifting and increased weight gain. Does have degenerative disc disease based on previous imaging. Heat , icing and massage Stretching exercises at home Topicals as lidocaine, biofreeze , bengay . Voltaren gel 4 times a day as needed Tylenol 1000 mg every 8 hours , and meloxicam for breakthrough pain Xray of mid back today Referral for PT [id number] History of Present illness Narrative* Glo Amezcua MD - 12/24/2022 3:07 PM EST Chief Complaint Patient presents with Establish Care HPI: Gabby Hogan 57 y.o. female presenting today as a new patient to establish care. PMH of nicotine dependence, ulcerative colitis, chronic back pain, hypertension Diarrhea: For the past 4 months , has been going for BM about 8-10 times per day , all watery , no formation , non bloody. Had few that looked black/ coffee ground last was 2-3 weeks. Colonoscopy done by in July, no UC changes and was told she has IBS. Immodium Taking eusrus and asacol Diagnosed with UC 20 yrs ago in Back pain: Chronic for years, low and upper back both sides. Worsening with being on her feet for a longtime, sometimes laying in bed. Worse going up steps lean on the grocery cart sometimes. 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 Sometimes shooting pain down her left leg. Denies any red flags with loss of bladder control , dropped foot or saddle anesthesia. Has had incontinence of stool and was brought up to GI attention. Some weakness noticed in both legs might stumble while walking. No past medical history on file. No past surgical history on file. No family history on file. Social History Tobacco Use Smoking status: Every Day Packs/day: 0.50 Types: Cigarettes Smokeless tobacco: Never Substance Use Topics Alcohol use: Not Currently Drug use: Yes Types: Marijuana Comment: off and on Review of Systems Vitals: 12/24/22 1449 BP: 119/79 BP Location: Right arm Patient Position: Sitting BP Cuff Size: X-large Adult Pulse: 92 Resp: 16 Temp: 98.4 F (36.9 C) TempSrc: Temporal SpO2: 93% Weight: 88.5 kg (195 lb) Height: 5' 7 Estimated body mass index is 30.54 kg/m as calculated from the following: Height as of this encounter: 5' 7. Weight as of this encounter: 88.5 kg (195 lb). Physical Exam Constitutional: General: She is not in acute distress. Appearance: She is not ill-appearing. HENT: Head: Normocephalic and atraumatic. Eyes: Extraocular Movements: Extraocular movements intact. Conjunctiva/sclera: Conjunctivae normal. Pupils: Pupils are equal, round, and reactive to light. Cardiovascular: Rate and Rhythm: Normal rate and regular rhythm. Pulses: Normal pulses. Heart sounds: Normal heart sounds. No murmur heard. No gallop. Pulmonary: Effort: Pulmonary effort is normal. Breath sounds: Normal breath sounds. No wheezing, rhonchi or rales. Chest: Chest wall: No tenderness. Abdominal: General: Abdomen is flat. Bowel sounds are normal. There is no distension. Palpations: Abdomen is soft. There is no mass. Tenderness: There is abdominal tenderness (Epigastric and LLQ). There is no right CVA tenderness, left CVA tenderness, guarding or rebound. Musculoskeletal: General: No tenderness. Normal range of motion. Cervical back: Normal range of motion and neck supple. No rigidity. No muscular tenderness. Right lower leg: No edema. Left lower leg: No edema. Lymphadenopathy: Cervical: No cervical adenopathy. Skin: General: Skin is warm. Findings: No erythema or rash. Neurological: General: No focal deficit present. Mental Status: She is alert and oriented to person, place, and time. Sensory: No sensory deficit. Motor: No weakness. Gait: Gait normal. Psychiatric: Mood and Affect: Mood normal. Behavior: Behavior normal. Thought Content: Thought content normal. Judgment: Judgment normal. OARRS/NARxCHECK Report Received and Assessed: No data found Date controlled substance agreement signed: No data found Date of last drug screen: No data found Functional Assessment: No data found PHQ9: Over the last 2 weeks, how often have you been bothered by any of the following problems? Little interest or pleasure in doing things: More than half the days PHQ-2 Total Score: 2 Trouble falling or staying asleep, or sleeping too much: Several days Feeling tired or having little energy: More than half the days Poor appetite or overeating: Not at all Feeling bad about yourself - or that you are a failure or have let yourself or your family down: Not at all Trouble concentrating on things, such as reading the newspaper or watching television: Several days Moving or speaking so slowly that other people could have noticed. Or the opposite - being so fidgety or restless that you have been moving around a lot more than usual: Not at all Thoughts that you would be better off , or of hurting yourself in some way: Not at all JOSE-7 Over the last 2 weeks, how often have you been bothered by the following problems? Feeling nervous, anxious or on edge: Not at all Trouble relaxing: Not at all Being so restless that it is hard to sit still: Not at all Becoming easily annoyed or irritable: Not at all Feeling afraid as if something awful might happen: Not at all Tobacco Counseling: Ready to quit: Not Answered Counseling given: Not Answered Patient's Medications New Prescriptions MELOXICAM (MOBIC) 15 MG TABLET Take 1 (one) tablet (15 mg total) by mouth daily . PSYLLIUM (METAMUCIL) PACK Take 1 (one) packet by mouth 2 (two) times a day . Previous Medications AMLODIPINE (NORVASC) 10 MG TABLET Take 1 (one) tablet (10 mg total) by mouth daily . DULOXETINE (CYMBALTA) 60 MG CAPSULE Take 1 (one) capsule (60 mg total) by mouth daily . FAMOTIDINE (PEPCID) 40 MG TABLET Take 1 (one) tablet (40 mg total) by mouth daily . FUROSEMIDE (LASIX) 20 MG TABLET Take 1 (one) tablet (20 mg total) by mouth daily . GABAPENTIN (NEURONTIN) 300 MG CAPSULE Take 1 (one) capsule (300 mg total) by mouth 3 (three) times a day . LISINOPRIL (PRINIVIL,ZESTRIL) 20 MG TABLET Take 1 (one) tablet (20 mg total) by mouth daily . Modified Medications No medications on file Discontinued Medications PANTOPRAZOLE (PROTONIX) 40 MG TABLET TAKE 1 TABLET BY MOUTH DAILY BEFORE BREAKFAST. TAKE 1/2 HOUR BEFORE MEAL Health Maintenance Due Topic Date Due Colorectal Cancer Screening/Monitoring Never done Pap Smear Never done COVID-19 Vaccine (1) Never done Wellness Visit Never done Depression Screening (PHQ-2/9) Never done HIV Screening Never done Hepatitis C Screening Never done Mammogram Never done Zoster Vaccines (1 of 2) Never done Pneumococcal Vaccine: Ped or At-Risk (2 - PPSV23 if available, else PCV20) 08/17/2016 Sequential Influenza Vaccine (1) 06/27/2022 Tetanus: Every 10yrs 06/30/2022 Assessment & Plan Problem List Items Addressed This Visit Digestive Ulcerative colitis (HCC) Previously diagnosed with ulcerative colitis, confirmed with GI on recurrent colonoscopies. We will need to get records from Dr. White her GI specialist for previous colonoscopies and treatments. Relevant Medications meloxicam (MOBIC) 15 MG tablet Cardiovascular and Mediastinum Essential hypertension Controlled on lisinopril 20 mg as well as amlodipine 10 mg. Relevant Medications amLODIPine (NORVASC) 10 MG tablet furosemide (LASIX) 20 MG tablet lisinopriL (PRINIVIL,ZESTRIL) 20 MG tablet Other Relevant Orders Lipid Panel Microalbumin/Creatinine Ratio, UR Random Other Back pain Most likely related to muscle spasms flaring up with overuse, heavy weight lifting and increased weight gain. Does have degenerative disc disease based on previous imaging. Heat , icing and massage Stretching exercises at home Topicals as lidocaine, biofreeze , bengay . Voltaren gel 4 times a day as needed Tylenol 1000 mg every 8 hours , and meloxicam for breakthrough pain Xray of mid back today Referral for PT Relevant Medications meloxicam (MOBIC) 15 MG tablet Other Relevant Orders Ambulatory Ref to [facility] (PT/OT/ST) XR Thoracic Spine 3 Views (Standard) XR Lumbar Spine 2-3 Views (Standard) Smoker Will explore that in the next visit Diarrhea - Primary Postinfectious diarrhea lingering for the past 4 months. Could be related to worsening IBS postinfection, need to rule out other underlying metabolic etiologies. Infection work-up for diarrhea discussed with patient today agreeable to proceed Check for other food allergies and if it is related to ulcerative colitis. Discontinue PPI for concern of possible C. difficile related to PPI use. Treating epigastric pain and gastritis with famotidine. Review previous colonoscopy and EGD that was done before the bout of her current diarrhea and abdominal pain. Treating IBS with Metamucil until we get further records from GI. Relevant Medications psyllium (METAMUCIL) Pack Other Relevant Orders Urinalysis Tissue Transglutaminase, IgA TSH with Reflex Free T4 CBC and Differential CRP, Inflammation Sedimentation Rate Comprehensive Metabolic Panel Stool/GI PCR Panel Clostridium Difficile Testing Lipase Return in about 6 weeks (around 02/04/2023) for Follow Up, 40 mins . GLO AMEZCUA MD [facility] [place] [address] [facility] [address] [facility] [address] Dept: [phone] documented in this [id number] Miscellaneous Notes* Telephone Encounter - Mathieu Velasco APRN.CNP - 12/18/2022 10:19 AM EST The following approved medication requests have been transmitted electronically. Requested Prescriptions Pending Prescriptions Disp Refills baclofen (LIORESAL) 10 mg tablet 90 tablet 5 Sig: Take 1 tablet by mouth three times daily as needed (muscle spasms). Mathieu Velasco APRN.CNP * Telephone Encounter - Trudy Carter Pss - 12/18/2022 9:22 AM EST Patient has been identified by name and date of : Yes Requested Prescriptions Pending Prescriptions Disp Refills baclofen (LIORESAL) 10 mg tablet 90 tablet 5 Sig: Take 1 tablet by mouth three times daily as needed (muscle spasms). LUIS-12/24/21 Labs-05/31/22 NOV-12/19/22 med filled 06/29/21 RX INSTRUCTIONS: Patient aware RX will be sent to pharmacy. No need to notify patient. Trudy Carter Pss documented [facility]Way[facility]01-19-2023 Miscellaneous Notes* Telephone Encounter - Mathieu Velasco APRN.CNP - 11/14/2022 7:46 AM EST The following approved medication requests have been transmitted electronically. Requested Prescriptions Pending Prescriptions Disp Refills pantoprazole DR (PROTONIX) 40 mg tablet [Pharmacy Med Name: PANTOPRAZOLE SOD DR 40 MG TAB] 30 tablet 11 Sig: TAKE 1 TABLET BY MOUTH DAILY BEFORE BREAKFAST. TAKE 1/2 HOUR BEFORE MEAL Mathieu Velasco APRN.DORIAN * Telephone Encounter - Petty Torre MA - 11/14/2022 7:25 AM EST Patient has been identified by name and date of : Yes Requested Prescriptions Pending Prescriptions Disp Refills pantoprazole DR (PROTONIX) 40 mg tablet [Pharmacy Med Name: PANTOPRAZOLE SOD DR 40 MG TAB] 30 tablet 11 Sig: TAKE 1 TABLET BY MOUTH DAILY BEFORE BREAKFAST. TAKE 1/2 HOUR BEFORE MEAL RX INSTRUCTIONS: Patient aware RX will be sent to pharmacy. No need to notify patient. Petty Torre MA Luis: 05/2022 Nov: 11/2022 Last refill; 11/2021 documented in this encounterWay[facility]01-03-2023 Miscellaneous Notes* Telephone Encounter - Khadijah Curran MD - 10/29/2022 11:28 AM EST Labs ordered Khadijah Curran MD * Telephone Encounter - Tracey Esquivel Ma - 10/29/2022 10:50 AM EST Call to pt notified her that this has been sent in. Pt states that she's not felt good for couple weeks and was vomiting with liquid diarrhea. Seen Viki. Continues to still not feel the best. Usually Prednisone is the only thing that helps. Pt sees Dr. White. Pt notes that she just feels off andis asking for labs to be placed prior to her upcoming appt on 12/10/22. Pt will update office if not improved in 2-3 days. Tracey Esquivel Ma * Telephone Encounter - Khadijah Curran MD - 10/29/2022 10:30 AM EST OK to refill prednisone as ordered Khadijah Curran MD * Telephone Encounter - Krista Sweet Pss - 10/29/2022 9:33 AM EST Gabby Spence is calling Khadijah Curran MD today with concern, she has had diarrhea for one week; she is requesting Prednisone; she stated that the doctor prescribes Prednisone which helps her. Please send to [facility]. She then stated she has not been feeling well for some time. Patient has been identified by name and birthdate. Duration of symptoms: N/A Person calling: self Call patient at: on cell [phone] (home) [phone] (work) [phone] (cell) Was an appointment scheduled: No Closing statement: Results or non-symptom based questions: Thank you for calling [facility], your call will be returned within the next business day. Krista Morris documented in this encounterWayne Hospital12-29-2022 Miscellaneous Notes* Telephone Encounter - Sandy Landrum LPN - 10/24/2022 9:08 AM EST Patient notified of results, verbalizes understanding of instructions. Sandy Landrum LPN * Telephone Encounter - Viki Hernandez APRN.CNP - 10/24/2022 8:44 AM EST Can you please call the patient and let her know that her flu and COVID test was negative. I do believe she has a viral illness. Can you please ask how she is feeling after starting the nausea medication? Viki Hernandez APRN.CNP documented in this encounterWayne Hospital12-28-2022 Instructions* Patient Instructions* Viki Hernandez APRN.CNP - 10/23/2022 4:11 PM EST Covid/Flu results should be back by tomorrow. Continue supportive care at home. May use zofran as needed for nausea. Sips of fluids If unable to keep fluids or food down go to ER. May use Tylenol and motrin for pain or fever. Continue with cold and cough medication as needed. Follow up pending test results or sooner as needed. documented in this encounterWayne Hospital12-28-2022 History of Present illness Narrative* Viki Hernandez APRN.CNP - 10/23/2022 4:00 PM EST This is a 57 year old female who presents today with: Patient presents with: Acute Visit: vomiting/chills/ diarrhea HISTORY OF PRESENT ILLNESS: Gabby Spence is a 57 year old female. Patient presents with: Acute Visit: vomiting/chills/ diarrhea Having headache, sore throat, myalgias, cough, and N/V/D. Symptoms started one week ago. Had 1 episode of vomiting and diarrhea this morning. Symptoms seem to wax and wane. Today unable to keep waterdown. Refers she has no appetite. Has been using OTC cold and cough medication as needed. Mild SOB that comes and goes. Coughing up scant amount of brown/yellow mucus at times. PAST MEDICAL HISTORY: PAST MEDICAL HISTORY Diagnosis Date Anxiety Back pain Diastolic dysfunction 10/2017 EF 65%, stage 1 diastolic dysfunction per Echo History of colonoscopy 02/25/2008 Done at [facility] [place]/Dr. Vo Ulcerative colitis, unspecified Ulcerative colitis PAST SURGICAL HISTORY Procedure Laterality Date COLONOSCOPY Every 3 years, Dr White in [place] COLONOSCOPY 08/13/2017 EGD, Dr. White, Normal COLONOSCOPY FLX DX W/COLLJ SPEC WHEN PFRMD 08/19/[address] White - info scanned ALLERGIES Wellbutrin [Bupropion Hcl] and Azulfidine [Sulfasalazine] MEDICATIONS Current Outpatient Medications Medication Sig gabapentin (NEURONTIN) 600 mg tablet Take 1 tablet by mouth three times daily for 90 days. amLODIPine (NORVASC) 10 mg tablet Take 1 tablet by mouth once daily. ondansetron orally disintegrating (ZOFRAN ODT) 4 mg disintegrating tablet Take 1 tablet by mouth every 6 hours as needed for nausea/vomiting. DULoxetine (CYMBALTA) 60 mg capsule TAKE 1 CAPSULE BY MOUTH ONCE DAILY lisinopril (ZESTRIL, PRINIVIL) 20 mg tablet Take 1 tablet by mouth once daily. budesonide (UCERIS) 9 mg TaDE Take 1 tablet by mouth once daily. pantoprazole DR (PROTONIX) 40 mg tablet Take 1 tablet by mouth daily before breakfast. Take on empty stomach, 1/2 hr before meal. baclofen (LIORESAL) 10 mg tablet Take 1 tablet by mouth three times daily as needed (muscle spasms). furosemide (LASIX) 20 mg tablet Take 1 tablet by mouth once daily. No current facility-administered medications for this visit. FAMILY HISTORY Problem Relation Age of Onset Cancer Mother Cancer Father Heart disease Brother 3 brothers - 52years old 53 yesr old and 54 years old Social History Tobacco Use Smoking status: Every Day Types: Cigarettes Start date: 10/27/1981 Smokeless tobacco: Never Tobacco comments: Cut back to 9-10 cigarettes per day Vaping Use Vaping Use: Never used Substance Use Topics Alcohol use: Yes Comment: once in a while Drug use: No REVIEW OF SYSTEMS GENERAL: No weight loss, malaise or fevers/chills HEENT: + Sore Throat NECK: Negative for lumps, goiter, pain and significant neck swelling RESPIRATORY: + Cough, SOB CARDIOVASCULAR: Negative for chest pain, leg swelling, orthopnea, or palpitations GI: + N/V/D. : No history of dysuria, frequency or incontinence MUSCULOSKELETAL: Negative for joint pain or swelling. SKIN: Negative for lesions, rash, and itching ENDOCRINE: Negative for cold or heat intolerance, polyuria, polydipsia and goiter NEURO: No history of headaches, syncope, paralysis, seizures or tremors MOOD: Negative for depression, anxiety, or suicidal ideation. EXAM: BP 138/92 Pulse 95 Resp 16 Wt 88 kg (194 lb) LMP 07/14/2013 SpO2 97% BMI 30.61 kg/m PHYSICAL EXAM: General Appearance: Well appearing, alert, in no acute distress, well-hydrated, well nourished. Skin: Skin color, texture, turgor normal, no suspicious rashes or lesions. Head: Normocephalic, no masses, lesions, tenderness or abnormalities. Eyes: Anicteric sclera. Pupils are equally round and reactive to light. Extraocular movements are intact. Ears: External ears normal, canals clear. TM's pearly villa Nose/Sinuses: Nares normal, septum midline, mucosa normal, no drainage or sinus tenderness. Oropharynx: Positive findings: mild oropharyngeal erythema. Neck: Supple, no adenopathy; thyroid symmetric, normal size, no bruits. Lungs: Lungs clear to auscultation. No wheezing, rhonchi, rales. Heart: RRR without murmur, gallop, or rubs. No ectopy. Abdomen: Positive findings: hyperactive bowel sounds. Extremities: No deformities, edema, skin discoloration, clubbing or cyanosis. Good capillary refill. Peripheral Pulses: Normal, Capillary refill <2secs, strong peripheral pulses, Pulses palpable. Neurologic: Gait normal. Sensation grossly intact. ASSESSMENT/PLAN: 1. Viral illness - ICD9: 079.99, ICD10: B34.9 (primary diagnosis) - Discussed viral etiology and rationale for treatment. - Symptomatic treatment with prn analgesia - Supportive care with fluids and rest - Red flag symptoms given to patient, she verbalizes understanding when to seek emergency care. - COVID WITH FLUA+B, ROUTINE 2. Nausea - ICD9: 787.02, ICD10: R11.0 - May use zofran as needed for nausea. - ONDANSETRON 4 MG DISINTEGRATING TABLET Follow-up pending test results or sooner as needed. Discussed treatment plan and patient voices understanding. Patient's questions answered appropriately. Medications and potential side effects were discussed and patient voices understanding. Viki Hernandez APRN.DORIAN This note was partially generated using [employer] recognition system. Note was reviewed for accuracy. There may be minor misspellings or grammar miscues with [employer] voice recognition. documented in this encounterCleveland [id number] Miscellaneous Notes* Telephone Encounter - Khadijah Curran MD - 09/05/2022 11:16 AM EST OK to refill as ordered Khadijah Curran MD * Telephone Encounter - Kailee Koenig - 09/05/2022 9:47 AM EST Patient has been identified by name and date of : Yes Last office visit in this department: 06/04/2022 RX INSTRUCTIONS: Patient aware RX will be sent to pharmacy. No need to notify patient. Patient phones requesting refills as follows: Requested Prescriptions Pending Prescriptions Disp Refills predniSONE (DELTASONE) 10 mg tablet 35 tablet 1 Sig: Take 4 tabs daily x5 days, then 2 tabs daily for 5 days, then 1 tab daily for 5 days. Please review and advise. Kailee Koenig documented in this encounterWayne Hospital10-26-2022 Miscellaneous Notes* Telephone Encounter - Mathieu Velasco APRN.CNP - 08/21/2022 10:17 AM EDT The following approved medication requests have been transmitted electronically. Requested Prescriptions Pending Prescriptions Disp Refills amLODIPine (NORVASC) 10 mg tablet 90 tablet 3 Sig: Take 1 tablet by mouth once daily. Mathieu Velasco APRN.CNP * Telephone Encounter - Kailee Koenig - 08/21/2022 9:59 AM EDT Patient has been identified by name and date of : Yes Last office visit in this department: 06/04/2022 Labs-05/31/22 NOV-12/10/21 med filled 06/29/21 RX INSTRUCTIONS: Patient aware RX will be sent to pharmacy. No need to notify patient. Patient phones requesting refills as follows: Requested Prescriptions Pending Prescriptions Disp Refills amLODIPine (NORVASC) 10 mg tablet 90 tablet 3 Sig: Take 1 tablet by mouth once daily. Please review and advise. Kailee Koenig documented in this encounterWayne Hospital10-03-2022 Miscellaneous Notes* Telephone Encounter - Claire Virk Ma - 07/29/2022 8:22 AM EDT Form faxed. Pt notified. Claire Virk Ma * Telephone Encounter - Khadijah Curran MD - 07/26/2022 5:32 PM EDT Form done Khadijah Curran MD * Telephone Encounter - Nancy Barth LPN - 07/25/2022 11:01 AM EDT Patient calling to ask if form has been completed? Patient said form is due 07/26. Patient said she will not be at work tomorrow, she is scheduled for colonoscopy. Please notify patient if completed. * Telephone Encounter - Tracey Esquivel Ma - 07/24/2022 6:20 PM EDT Form received in office and routed to PCP to review and complete. Once completed call and notify pt and fax to number on form. F#:[phone]. This is due by 07/26/22. Tracey Esquivel Ma * Telephone Encounter - Lashae Chopra RN - 07/24/2022 4:37 PM EDT Patient calling and states she will be faxing insurance forms to provider's office to complete and fax back to number provided. Please call patient once forms completed and faxed. Thank you. documented in this encounterWayne Hospital09-20-2022 Miscellaneous Notes* Telephone Encounter - Mathieu Velasco APRN.CNP - 07/16/2022 12:08 PM EDT Approved. [facility] website checked and validated. All prescriptions have been APPROPRIATELY filled. No suspiciousactivity was identified. 07/16/2022 by Mathieu Velasco APRN.CNP The following approved medication requests have been transmitted electronically. Requested Prescriptions Signed Prescriptions Disp Refills gabapentin (NEURONTIN) 600 mg tablet 90 tablet 2 Sig: Take 1 tablet by mouth three times daily for 90 days. Authorizing Provider: MATHIEU VELASCO ondansetron orally disintegrating (ZOFRAN ODT) 4 mg disintegrating tablet 30 tablet 0 Sig: Take 1 tablet by mouth every 6 hours as needed for nausea/vomiting. Authorizing Provider: MATHIEU VELASCO APRN.CNP * Telephone Encounter - Josafat Limon LPN - 07/16/2022 12:01 PM EDT LUIS 06/04/22 NOV 12/10/22 * Telephone Encounter - Jane Morris - 07/16/2022 11:52 AM EDT Patient has been identified by name and date of : Yes Requested Prescriptions Pending Prescriptions Disp Refills gabapentin (NEURONTIN) 600 mg tablet 90 tablet 2 Sig: Take 1 tablet by mouth three times daily for 90 days. ondansetron orally disintegrating (ZOFRAN ODT) 4 mg disintegrating tablet 30 tablet 0 Sig: Take 1 tablet by mouth every 6 hours as needed for nausea/vomiting. RX INSTRUCTIONS: Patient aware RX will be sent to pharmacy. No need to notify patient. Jane Morris documented in this encounterWayne Hospital09-16-2022 Miscellaneous Notes* Telephone Encounter - Nancy Barth LPN - 07/12/2022 3:01 PM EDT Patient returned call and went over results, notes from Mathieu Velasco ROCK LOADER with understanding. * Telephone Encounter - Calvin Miranda Ma - 07/12/2022 2:30 PM EDT TC to patient - friend answered her phone, stated that she was at work and will have her call the office back. * Telephone Encounter - Mathieu Velasco APRN.CNP - 07/12/2022 2:23 PM EDT Please let the patient know that her bone density testing was normal. Mathieu Velasco APRN.CNP documented in this encounterWayne Hospital09-13-2022 History of Present illness Narrative* RT Emilia(R) - 07/09/2022 3:30 PM EDT Radiology Service Progress Note PATIENT NAME: Gabby Spence DATE OF SERVICE: July 09, 2022 TIME: 3:33 PM PATIENT IDENTITY VERIFICATION COMPLETED USING TWO (2) IDENTIFIERS: Name and Date of confirmedby patient verbally. FALL SCREENING: Has the patient had 2 falls in the last year or 1 fall with injury or currently using an Ambulatory Assistive Device (Walker, Cane, Wheelchair, Crutches, etc.)? No PATIENT GENDER DATA: Female. status: : No status: NO. PATIENT RELEVANT IMPLANT DATA REVIEWED: Not Applicable RADIOLOGY DEPARTMENT: Bone Density PERIPHERAL IV DATA: Not applicable SIGNED BY: RT Emilia(R) July 09, 2022 3:33 PM documented in this encounterWayne Hospital08-22-2022 Miscellaneous Notes* Telephone Encounter - Khadijah Curran MD - 06/17/2022 11:35 AM EDT OK to refill as ordered Khadijah Curran MD * Telephone Encounter - Sandy Landrum LPN - 06/17/2022 10:08 AM EDT Patient phones requesting refills as follows: Requested Prescriptions Pending Prescriptions Disp Refills DULoxetine (CYMBALTA) 60 mg capsule [Pharmacy Med Name: DULOXETINE HCL DR 60 MG CAP] 30 capsule 5 Sig: TAKE 1 CAPSULE BY MOUTH ONCE DAILY LUIS-06/04/22 Labs-05/31/22 NOV-12/10/22 Meds filled 12/28/21 Please review and advise. Sandy Landrum LPN documented in this encounterWayne Hospital08-09-2022 History of Present illness Narrative* Khadijah Curran MD - 06/04/2022 4:00 PM EDT Chief Complaint Patient presents with: 6 Month Exam HPI Gabby Spence is a 57 year old female who presents here today for 6 month follow up. Had a life screening done in March. Office has not received any documentation at this time. Still smoking. She admits to not smoking as much due to the smoking causing her voice to be raspy and hoarse. GERD: Controlled with Protonix 40 [address] daily[address] with Dr. White, Gastro for GI issues: ulcerative colitis. Taking Uceris and prn Prednisone. She feels that the Prednisone helps. Has consult for colonoscopy on 06/20/22. Edema: edmund legs; off and on. Using Lasix 20 mg daily. HTN: No chest pains, dizziness, or SOB. Taking Lisinopril 20 mg daily and Norvasc 10 mg daily. Not checking BP at home. Pain: Chronic back and legs; using Baclofen 10 mg TID prn and Gabapentin 600 mg TID. Depression & JOSE: Is taking Cymbalta 60 mg daily, working well for her. Lump on top of left foot, occ swells up into her toes. Past medical history, appointments, medications, allergies reviewed. Previous Medical History PAST MEDICAL HISTORY Diagnosis Date Anxiety Back pain Diastolic dysfunction 10/2017 EF 65%, stage 1 diastolic dysfunction per Echo History of colonoscopy 02/25/2008 Done at [facility] [place]/Dr. Vo Ulcerative colitis, unspecified Ulcerative colitis Previous Surgical History PAST SURGICAL HISTORY Procedure Laterality Date COLONOSCOPY Every 3 years, [address] White in [place] COLONOSCOPY 08/13/2017 EGD, Dr. White, Normal COLONOSCOPY FLX DX W/COLLJ SPEC WHEN PFRMD 08/19/[address] White - info scanned Family History FAMILY HISTORY Problem Relation Age of Onset Cancer Mother Cancer Father Heart disease Brother 3 brothers - 52years old 53 yesr old and 54 years old Patient Allergies ALLERGIES Allergen Reactions Wellbutrin [Bupropi* GI Upset Nausea and GI upset Azulfidine [Sulfasa* Hives Current Medications Current Outpatient Medications on File Prior to Visit Medication Sig gabapentin (NEURONTIN) 600 mg tablet Take 1 tablet by mouth three times daily for 90 days. ondansetron orally disintegrating (ZOFRAN ODT) 4 mg disintegrating tablet Take 1 tablet by mouth every 6 hours as needed for nausea/vomiting. tiZANidine (ZANAFLEX) 4 mg tablet Take 1 tablet by mouth every 8 hours as needed (muscle spasms). DULoxetine (CYMBALTA) 60 mg capsule Take 1 capsule by mouth once daily. lisinopril (ZESTRIL, PRINIVIL) 20 mg tablet Take 1 tablet by mouth once daily. budesonide (UCERIS) 9 mg TaDE Take 1 tablet by mouth once daily. pantoprazole DR (PROTONIX) 40 mg tablet Take 1 tablet by mouth daily before breakfast. Take on empty stomach, 1/2 hr before meal. baclofen (LIORESAL) 10 mg tablet Take 1 tablet by mouth three times daily as needed (muscle spasms). amLODIPine (NORVASC) 10 mg tablet Take 1 tablet by mouth once daily. furosemide (LASIX) 20 mg tablet Take 1 tablet by mouth once daily. hydrocortisone (ANUSOL-HC) 2.5 % rectal cream by RECTAL route twice daily. No current facility-administered medications on file prior to visit. Social History Social History Tobacco Use Smoking status: Every Day Types: Cigarettes Start date: 10/27/1981 Smokeless tobacco: Never Tobacco comments: Cut back to 9-10 cigarettes per day Vaping Use Vaping Use: Never used Substance Use Topics Alcohol use: Yes Comment: once in a while Drug use: No EXAM: BP 128/80 Pulse 88 Resp 18 Wt 90.8 kg (200 lb 1.6 oz) LMP 07/14/2013 BMI 31.58 kg/m General Appearance: Well appearing, alert, in no acute distress, well-hydrated, well nourished.. Lungs: Lungs clear to auscultation. No wheezing, rhonchi, rales.. Heart: RRR without murmur, gallop, or rubs. No ectopy. Left foot: ganglion cyst on dorsum of foot. Health Maintenance List HEPATITIS A(1 of 2 - Risk 2-dose series) Never done MENINGOCOCCAL B: Consider based on risk(1 of 4 - Increased Risk Bexsero 2-dose series) Never done MMR(1 of 2 - Risk 2-dose series) Never done HIV SCREENING Never done BP CONTROLLED (<130/80) Never done HEPATITIS B(1 of 3 - Risk 3-dose series) Never done SHINGRIX VACCINE(1 of 2) Never done PNEUMOCOCCAL(2 - PPSV23 or PCV20) due on 08/17/2016 PAP TESTING due on 11/18/2018 HPV TESTING due on 11/18/2018 DEPRESSION SCREENING due on 12/22/2019 COLORECTAL CANCER SCREENING due on 06/13/2020 COVID-19 VACCINE(3 - Booster for Pfizer series) due on 06/29/2021 MAMMOGRAM due on 02/19/2022 INFLUENZA(1) due on 06/27/2022 DTAP,TDAP,TD(2 - Td or Tdap) due on 06/30/2022 ANNUAL PCP TEAM CHRONIC DISEASE VISIT due on 03/16/2023 DIABETES SCREEN due on 02/18/2024 LIPID SCREEN due on 02/17/2026 HEPATITIS C SCREENING Completed Data reviewed Appointment on 05/31/2022 Component Date Value Cholesterol, Total 05/31/2022 204 (A) Triglyceride 05/31/2022 105 HDL Cholesterol 05/31/2022 53 Non HDL Cholesterol 05/31/2022 151 (A) Fasting Time 05/31/2022 8 VLDL Cholesterol 05/31/2022 21 TC:HDL Ratio 05/31/2022 3.85 LDL Cholesterol 05/31/2022 130 (A) LDL:HDL Ratio 05/31/2022 2.45 WBC 05/31/2022 11.08 (A) RBC 05/31/2022 3.95 Hemoglobin 05/31/2022 12.2 Hematocrit 05/31/2022 36.5 MCV 05/31/2022 92.4 MCH 05/31/2022 30.9 MCHC 05/31/2022 33.4 RDW-CV 05/31/2022 13.4 Platelet Count 05/31/2022 410 (A) MPV 05/31/2022 8.4 (A) Neut% 05/31/2022 60.1 Abs Neut 05/31/2022 6.65 Lymph% 05/31/2022 29.9 Abs Lymph 05/31/2022 3.31 [place]% 05/31/2022 5.8 Abs [place] 05/31/2022 0.64 Eosin% 05/31/2022 3.2 Abs Eosin 05/31/2022 0.36 Baso% 05/31/2022 0.5 Abs Baso 05/31/2022 0.06 Immature Gran % 05/31/2022 0.5 Abs Immature Gran 05/31/2022 0.06 NRBC 05/31/2022 0.0 Absolute nRBC 05/31/2022 <0.01 Diff Type 05/31/2022 Auto Protein, Total 05/31/2022 6.9 Albumin 05/31/2022 4.1 Calcium, Total 05/31/2022 9.9 Bilirubin, Total 05/31/2022 <0.2 (A) Alkaline Phosphatase 05/31/2022 77 AST 05/31/2022 20 ALT 05/31/2022 14 Glucose 05/31/2022 99 BUN 05/31/2022 10 Creatinine 05/31/2022 0.88 Sodium 05/31/2022 142 Potassium 05/31/2022 3.7 Chloride 05/31/2022 102 CO2 05/31/2022 25 Anion Gap 05/31/2022 15 Estimated Glomerular Leobardo* 05/31/2022 77 Vitamin D 25 Hydroxy 05/31/2022 47.9 ASSESSMENT/PLAN: 1. Anxiety - ICD9: 300.00, ICD10: F41.9 (primary diagnosis) Stable Continue current medications. 2. Chronic midline low back pain, unspecified whether sciatica present - ICD9: 724.2, 338.29, ICD10: M54.50, G89.29 Stable Continue current medications. 3. Ulcerative pancolitis without complication (HCC) - ICD9: 556.6, ICD10: K51.00 Continue current medications. Keep appt with Dr. White for Colonoscopy consult 4. Smoker - ICD9: 305.1, ICD10: F17.200 - Cessation encouraged. - Physiologic and physical aspects of tobacco addiction as well as strategies for quitting were discussed. - Counseling was given focusing on the harmful effects of this addiction especially given the patient's medical condition(s) which will be worsened because of the chemicals in tobacco. - Counseling was given 3-4 minutes. 5. Essential hypertension - ICD9: 401.9, ICD10: I10 - good control - Continue current medication(s) - Recommended regular aerobic exercise. - Recommend home blood pressure monitoring, to bring results in on next visit - Goal of BP <130/80 6. Screening for osteoporosis - ICD9: V82.81, ICD10: Z13.820 BMD ordered 7. Ganglion cyst left foot Monitor Follow up in 6 months. I agree with the Chief Complaint, ROS, and Past Histories independently gathered by the clinical it application support analyst and the remaining scribed note accurately describes my personal service to the patient. Medical Decision Making: Problems: Moderate: 2+ stable chronic illnesses Data: Unique test result(s) reviewed: 3+ Risk: Moderate: Drug management Medical Decision Making Level: 4 - Moderate Khadijah Curran MD The documentation for this note was completed by Claire Virk Ma acting as scribe for Khadijah Curran MD. June 04, 2022 4:08 PM. Claire Virk Ma documented in this encounterWayne Hospital08-08-2022 Miscellaneous Notes* Telephone Encounter - Claire Virk Ma - 06/03/2022 4:32 PM EDT Pt has appt tomorrow Claire Virk Ma * Telephone Encounter - Claire Virk Ma - 06/03/2022 1:42 PM EDT Tried to reach pt, full. .Claire Virk Ma * Telephone Encounter - Mathieu Velasco APRN.CNP - 05/31/2022 2:52 PM EDT Please let the patient know that I have sent prednisone. Keep follow up with Dr. Curran on Friday. Go to the ER for worsening pain, fevers until then. The following approved medication requests have been transmitted electronically. Pending Prescriptions Disp Refills PREDNISONE 10 MG TABLET 35 tablet 1 Sig: Take 4 tabs daily x5 days, then 2 tabs daily for 5 days, then 1 tab daily for 5 days. SESAR: No Mathieu Velasco APRN.DORIAN * Telephone Encounter - Opal Montez RN - 05/31/2022 2:24 PM EDT Patient calls to report a flare up of her ulcerative colitis. Patient reports she is having severalepisodes of diarrhea daily and requesting a prescription for prednisone be [facility] to [facility]. Patient scheduled to see provider 06/04/2022 for follow up. Pended per review. Opal Montez RN documented in this encounterWayne Hospital08-03-2022 Miscellaneous Notes* Telephone Encounter - Claire Virk Ma - 05/29/2022 10:27 AM EDT Pt notified and voiced understanding. Claire Virk Ma * Telephone Encounter - Mathieu Velasco APRN.CNP - 05/29/2022 10:18 AM EDT Order filed. Mathieu Velasco APRN.CNP * Telephone Encounter - Nancy Barth LPN - 05/29/2022 8:31 AM EDT Patient calling she has appt scheduled with PCP on 06/04 and is asking for lab orders to complete. Last labs were done 01/2021. Pending orders if wanted, needs diagnosis. Please advise documented in this encounterWayne Hospital06-27-2022 Miscellaneous Notes* Telephone Encounter - Mathieu Velasco APRN.CNP - 04/22/2022 9:05 AM EDT Approved. PDMP website checked and validated. All prescriptions have been APPROPRIATELY filled. No suspiciousactivity was identified. 04/22/2022 by Mathieu Velasco APRN.CNP The following approved medication requests have been transmitted electronically. Signed Prescriptions Disp Refills gabapentin (NEURONTIN) 600 mg tablet 90 tablet 2 Sig: Take 1 tablet by mouth three times daily for 90 days. SESAR: No Authorizing Provider: MATHIEU VELASCO APRN.CNP * Telephone Encounter - Jane Morris - 04/22/2022 8:55 AM EDT Patient has been identified by name and date of : Yes Pending Prescriptions Disp Refills GABAPENTIN 600 MG TABLET 90 tablet 2 Sig: Take 1 tablet by mouth three times daily for 90 days. SESAR: No LUIS-03/16/22 Labs-02/17/21 NOV-06/04/22 med filled 02/01/22 ends 05/02/22 RX INSTRUCTIONS: Patient aware RX will be sent to pharmacy. No need to notify patient. Janeleslie Thorpe Pss documented in this encounterWayne Hospital05-24-2022 Miscellaneous Notes* Telephone Encounter - Hui Zaman LPN - 03/19/2022 10:27 AM EDT Spoke with pt and information listed below given. Pt verbalizes understanding. Hui Zaman LPN * Telephone Encounter - Beth Mena LPN - 03/19/2022 9:39 AM EDT Phoned patient and VM left for her to return call and speak to a nurse for update. * Telephone Encounter - Beth Mena LPN - 03/19/2022 9:39 AM EDT ----- Message from Ethan Robledo MD sent at 03/18/2022 8:03 AM EDT ----- COVID testing negative. Continue supportive care as discussed in office. May return to work since she is COVID negative. documented in this encounterWayne Hospital05-23-2022 Miscellaneous Notes* Telephone Encounter - Claire Virk Ma - 03/18/2022 4:59 PM EDT Spoke with pt, appt made. Claire Virk Ma * Telephone Encounter - Khadijah Curran MD - 03/18/2022 3:15 PM EDT She would need to be seen before having additional testing ordered Khadijah Curran MD * Telephone Encounter - Tracey Esquivel Ma - 03/18/2022 11:21 AM EDT Pt called and notified that Rx has been sent in [facility]. Pt see's Dr. White and notes that she needs to see him but has not. Pt wonders if she needs to have labs or an US for abdominal pain, bloating and leg edema. Advise. Tracey Esquivel Ma * Telephone Encounter - Khadijah Curran MD - 03/18/2022 11:06 AM EDT OK for prednisone as ordered Khadijah Curran MD * Telephone Encounter - Latanya Richardson RN - 03/18/2022 8:30 AM EDT Faxed covid results to patient's employer, [employer], per patient request. . Patient asking pcp to refill her prednisone. States she is having trouble with her colon again. Reports she saw Dr. Robledo on Sat and forgot to ask him for it. [facility]. documented in this encounterWayne Hospital05-21-2022 History of Present illness Narrative* Ethan Rolbedo MD - 03/16/2022 11:07 AM EDT Chief Complaint Patient presents with: Cough: x4 days; nausea/vomiting, GUILLORY Flank Pain: right flank x2-3 days HPI Gabby Spence is a 56 year old female who presents here today for Above Complaints.. Patient states that starting on 03/12 she has had nausea/vomiting, fatigue, myalgias, productive cough with yellow phlegm, chills, sore throat, headache, change in taste-salty, diarrhea, nasal congestion/rhinorrhea. Denies fever, dysuria, hematuria, urgency/frequency. Treating with ibuprofen withoutmuch improvement in symptoms. Has not gotten Booster for COVID. Unsure if she has been around anyone with COVID in the last 2 weeks. States that she did a rapid test on 03/13 which was negative. Has not PCR test. Symptoms unchanged since 03/12. Past medical history, appointments, medications, allergies reviewed. Previous Medical History PAST MEDICAL HISTORY Diagnosis Date Anxiety Back pain Diastolic dysfunction 10/2017 EF 65%, stage 1 diastolic dysfunction per Echo History of colonoscopy 02/25/2008 Done at [facility] [place]/Dr. Vo Ulcerative colitis, unspecified Ulcerative colitis Previous Surgical History PAST SURGICAL HISTORY Procedure Laterality Date COLONOSCOPY Every [address] years, [address] White in [place] COLONOSCOPY 08/13/2017 EGD, Dr. White, Normal COLONOSCOPY FLX DX W/COLLJ SPEC WHEN PFRMD 08/19/[address] White - info scanned Family History FAMILY HISTORY Problem Relation Age of Onset Cancer Mother Cancer Father Heart disease Brother 3 brothers - 52years old 53 yesr old and 54 years old Patient Allergies ALLERGIES Allergen Reactions Wellbutrin [Bupropi* GI Upset Nausea and GI upset Azulfidine [Sulfasa* Hives Current Medications Current Outpatient Medications on File Prior to Visit Medication Sig gabapentin (NEURONTIN) 600 mg tablet Take 1 tablet by mouth three times daily for 90 days. DULoxetine (CYMBALTA) 60 mg capsule Take 1 capsule by mouth once daily. lisinopril (ZESTRIL, PRINIVIL) 20 mg tablet Take 1 tablet by mouth once daily. budesonide (UCERIS) 9 mg TaDE Take 1 tablet by mouth once daily. pantoprazole DR (PROTONIX) 40 mg tablet Take 1 tablet by mouth daily before breakfast. Take on empty stomach, 1/2 hr before meal. baclofen (LIORESAL) 10 mg tablet Take 1 tablet by mouth three times daily as needed (muscle spasms). amLODIPine (NORVASC) 10 mg tablet Take 1 tablet by mouth once daily. furosemide (LASIX) 20 mg tablet Take 1 tablet by mouth once daily. ondansetron orally disintegrating (ZOFRAN ODT) 4 mg disintegrating tablet Take 1 tablet by mouth every 6 hours as needed for nausea/vomiting. tiZANidine (ZANAFLEX) 4 mg tablet Take 1 tablet by mouth every 8 hours as needed (muscle spasms). hydrocortisone (ANUSOL-HC) 2.5 % rectal cream by RECTAL route twice daily. No current facility-administered medications on file prior to visit. Social History Social History Tobacco Use Smoking status: Current Every Day Smoker Types: Cigarettes Start date: 10/27/1981 Smokeless tobacco: Never Used Tobacco comment: Cut back to 9-10 cigarettes per day Vaping Use Vaping Use: Never used Substance Use Topics Alcohol use: Yes Comment: once in a while Drug use: No Review of Symptoms REVIEW OF SYSTEMS See HPI EXAM: BP 110/82 Pulse 100 Temp 36.5 C (97.7 F) Resp 18 Wt 89 kg (196 lb 3.2 oz) LMP 07/14/2013 SpO2 98% BMI 30.96 kg/m General Appearance: Well appearing, alert, in no acute distress, well-hydrated, well nourished.. Skin: Skin color, texture, turgor normal, no suspicious rashes or lesions. Head: Normocephalic, no masses, lesions, tenderness or abnormalities. Eyes: Anicteric sclera. Pupils are equally round and reactive to light. Extraocular movements are intact. . Ears: External ears normal, canals clear. Nose: sinuses non tender to palpation. Neck: Supple, no adenopathy; thyroid symmetric, normal size, no bruits. Lungs: Lungs clear to auscultation. No wheezing, rhonchi, rales.. Heart: RRR without murmur, gallop, or rubs. No ectopy. Health Maintenance List MENINGOCOCCAL B: Consider based on risk(1 of 4 - Increased Risk Bexsero 2-dose series) Never done HIV SCREENING Never done BP CONTROLLED (<130/80) Never done ONE PNEUMOVAX PRIOR TO AGE 65 Never done SHINGRIX VACCINE(1 of 2) Never done PAP TESTING due on 11/18/2018 HPV TESTING due on 11/18/2018 DEPRESSION SCREENING due on 12/22/2019 COLORECTAL CANCER SCREENING due on 06/13/2020 COVID-19 VACCINE(3 - Booster for Pfizer series) due on 06/29/2021 MAMMOGRAM due on 02/19/2022 DTAP,TDAP,TD(2 - Td or Tdap) due on 06/30/2022 ANNUAL PCP TEAM CHRONIC DISEASE VISIT due on 02/21/2023 DIABETES SCREEN due on 02/18/2024 LIPID SCREEN due on 02/17/2026 INFLUENZA Completed HEPATITIS C SCREENING Completed MENINGOCOCCAL CONJUGATE Aged Out ASSESSMENT/PLAN: 1. Suspected COVID-19 virus infection - ICD9: V01.79, ICD10: Z20.822 (primary diagnosis) Possible COVID infection vs viral URI. Obtain PCR today and will start on tessalon, zofran, and supportive care. Recommend rest, supportive care, and should isolate until: At least 5 days have passed since symptoms first appeared and At least 24 hours have passed since last fever without the use of fever-reducing medications and Symptoms (e.g., cough, shortness of breath) have improved. Should wear mask for at least 5 days after he ends isolation to prevent spread to others. Red flags for re-assessment reviewed with patient in detail. - ONDANSETRON 4 MG DISINTEGRATING TABLET - BENZONATATE 100 MG CAPSULE - 2019 CORONAVIRUS 2. Nausea - ICD9: 787.02, ICD10: R11.0 - ONDANSETRON 4 MG DISINTEGRATING TABLET [facility]ledo [facility] History of Present illness NarrativePatient seen today with complaints of abdominal bloating nausea and intermittent vomiting and intermittent diarrhea. Has a quite a history of ulcerative colitis last colonoscopy was 5 years ago. She was seen 2 years ago for acute rectal bleeding and thrombosed hemorrhoid with fissure was noted. She saw Dr. Walsh locally and sought additional opinion with Dr. Roque and Dolores. She manage symptoms medically and is improved. She is currently taking intermittent steroids for severe diarrhea. She eats she feels bloated with most meals and feels a pain in her right shoulder region with a bandlike pressure around her entire abdomen to the point where she feels bloated. She will have vomiting episodes approximately once monthly its worse if she overeats and often vomits and undigested food. She denies any melena or gross rectal bleeding she has not had lab work in approximately an year.[facility] Work Phone: [phone] 656-928109-28-2017 History of Present illness NarrativePatient seen today with complaints of abdominal bloating nausea and intermittent vomiting and intermittent diarrhea. Has a quite a history of ulcerative colitis last colonoscopy was 5 years ago. She was seen 2 years ago for acute rectal bleeding and thrombosed hemorrhoid with fissure was noted. Eric Walsh locally and sought additional opinion with Dr. Roque and Dolores. She manage symptoms medically and is improved. She is currently taking intermittent steroids for severe diarrhea. She eats she feels bloated with most meals and feels a pain in her right shoulder region with a bandlike pressure around her entire abdomen to the point where she feels bloated. She will have vomiting e pisodes approximately once monthly its worse if she overeats and often vomits and undigested food. She denies any melena or gross rectal bleeding she has not had lab work in approximately an year.[facility] Work Phone: [phone] History of Present illness NarrativePatient seen today with complaints of abdominal bloating nausea and intermittent vomiting and intermittent diarrhea. Has a quite a history of ulcerative colitis last colonoscopy was 5 years ago. She was seen 2 years ago for acute rectal bleeding and thrombosed hemorrhoid with fissure was noted. Eric Walsh locally and sought additional opinion with Dr. Roque and Dolores. She manage symptoms medically and is improved. She is currently taking intermittent steroids for severe diarrhea. She eats she feels bloated with most meals and feels a pain in her right shoulder region with a bandlike pressure around her entire abdomen to the point where she feels bloated. She will have vomiting e pisodes approximately once monthly its worse if she overeats and often vomits and undigested food. She denies any melena or gross rectal bleeding she has not had lab work in approximately an year.[facility] [place] [address] Work Phone: Evaluation note* Diagnosis Suspected COVID-19 virus infection- Primary Nausea Nausea alone documented in this encounter [facility] note* Diagnosis Ulcerative pancolitis without complication (HCC) [facility] Diagnosis Encounter for screening mammogram for breast cancer documented in this encounter [facility] note* Diagnosis Back pain, unspecified back location, unspecified back pain laterality, unspecified chronicity Left sided abdominal pain Abdominal pain, unspecified site documented in this encounter [facility] note* Diagnosis Essential hypertension- Primary Unspecified essential hypertension Vitamin D deficiency Unspecified vitamin D deficiency Hyperlipidemia, mixed Mixed hyperlipidemia documented in this encounter [facility] note* Diagnosis Ulcerative pancolitis without complication (HCC) documented in this encounter [facility] note* Diagnosis Essential hypertension- Primary Unspecified essential hypertension Anxiety Anxiety state, unspecified Chronic midline low back pain, unspecified whether sciatica present Ulcerative pancolitis without complication (HCC) Smoker Tobacco use disorder Screening for osteoporosis Special screening for osteoporosis 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 documented in this encounter [facility] note* Diagnosis Anxiety Anxiety state, unspecified Mild major depression (HCC) Major depressive disorder, single episode, mild documented in this encounter [facility] note* Diagnosis Ulcerative pancolitis without complication (HCC) Smoker Tobacco use disorder Screening for osteoporosis Special screening for osteoporosis 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 documented in this encounter [facility] note* Diagnosis Back pain, unspecified back location, unspecified back pain laterality, unspecified chronicity Left sided abdominal pain Abdominal pain, unspecified site Nausea Nausea alone Suspected COVID-19 virus infection documented in this encounter [facility] note* Diagnosis Ulcerative pancolitis without complication (HCC) documented in this encounter [facility] note* Diagnosis Essential hypertension Unspecified essential hypertension documented in this encounter [facility] note* Diagnosis Ulcerative pancolitis without complication (HCC) documented in this encounter [facility] note* Diagnosis Viral illness- Primary Unspecified viral infection, in conditions classified elsewhere and of unspecified site Nausea Nausea alone documented in this encounter [facility] note* Diagnosis Chronic midline low back pain, unspecified whether sciatica present documented in this encounter [facility] note* Diagnosis Diarrhea, unspecified type- Primary Back pain, unspecified back location, unspecified back pain laterality, unspecified chronicity Essential hypertension Unspecified essential hypertension Ulcerative colitis with complication, unspecified location (HCC) Smoker Tobacco use disorder documented in this encounter [facility] note* Diagnosis Diarrhea, unspecified type- Primary Back pain, unspecified back location, unspecified back pain laterality, unspecified chronicity Essential hypertension Unspecified essential hypertension Ulcerative colitis with complication, unspecified location (HCC) Smoker Tobacco use disorder documented in this encounter [facility] note* Diagnosis Diarrhea, unspecified type- Primary Back pain, unspecified back location, unspecified back pain laterality, unspecified chronicity Essential hypertension Unspecified essential hypertension Ulcerative colitis with complication, unspecified location (HCC) Smoker Tobacco use disorder Back pain, unspecified back location, unspecified back pain laterality, unspecified chronicity Back pain, unspecified back location, unspecified back pain laterality, unspecified chronicity documented in this encounter [facility] note* Diagnosis Generalized weakness- Primary Other malaise and fatigue documented in this encounter [facility] note* Diagnosis Onset Date Resolution Status BRIJESH (acute kidney injury) [place] Dehydration acute History of IBS acute Hyperkalemia acute Nausea vomiting and diarrhea acute [facility] Work Phone: Evaluation note* Diagnosis Hospital discharge follow-up- Primary Other follow-up examination Dizziness Dizziness and giddiness Dehydration Diarrhea, unspecified type documented in this encounter [facility] note* Diagnosis Chronic low back pain, unspecified back pain laterality, unspecified whether sciatica present documented in this encounter [facility] note* Diagnosis Back pain, unspecified back location, unspecified back pain laterality, unspecified chronicity Left sided abdominal pain Abdominal pain, unspecified site documented in this encounter [facility] note* Diagnosis Hydrosalpinx Chronic salpingitis and oophoritis documented in this encounter [facility] note* Diagnosis Hydrosalpinx- Primary Chronic salpingitis and oophoritis Abdominal or pelvic swelling, mass, or lump, left lower quadrant documented in this encounter [facility] note* Diagnosis Essential hypertension- Primary Unspecified essential hypertension Ulcerative colitis with complication, unspecified location (HCC) Edema of both legs Edema Prediabetes Other abnormal glucose Back pain, unspecified back location, unspecified back pain laterality, unspecified chronicity documented in this encounter [facility] note* Diagnosis Back pain, unspecified back location, unspecified back pain laterality, unspecified chronicity Left sided abdominal pain Abdominal pain, unspecified site documented in this encounter [facility] note* Diagnosis Mass in neck- Primary Swelling, mass, or lump in head and neck documented in this encounter [facility] note* Diagnosis Mass in neck- Primary Swelling, mass, or lump in head and neck documented in this encounter [facility] note* Diagnosis Mass in neck- Primary Swelling, mass, or lump in head and neck documented in this encounter [facility] noteNo assessment information availableWReg[facility] Work Phone: [facility]* Diagnosis Arthritis of right sternoclavicular joint- Primary Biceps tendonitis on right Mass in neck Swelling, mass, or lump in head and neck documented in this encounter [facility] note* Diagnosis Primary osteoarthritis of left foot- Primary Bone spur of left foot documented in this encounter [facility] note* Diagnosis Anxiety Anxiety state, unspecified Mild major depression (HCC) Major depressive disorder, single episode, mild Ulcerative pancolitis without complication (HCC) documented in this encounter [facility] note* Diagnosis Wellness examination- Primary Ulcerative pancolitis without complication (HCC) Anxiety with depression Arthritis of right sternoclavicular joint GERD without esophagitis Esophageal reflux Screening cholesterol level Screening for lipoid disorders Screening for diabetes mellitus Encounter for screening for lung cancer documented in this encounter [facility] note* Diagnosis Ulcerative pancolitis without complication (HCC) documented in this encounter [facility] note* Diagnosis Back pain, unspecified back location, unspecified back pain laterality, unspecified chronicity Left sided abdominal pain Abdominal pain, unspecified site documented in this encounter [facility] note* Diagnosis Ulcerative pancolitis without complication (HCC)- Primary Essential hypertension Unspecified essential hypertension Back pain, unspecified back location, unspecified back pain laterality, unspecified chronicity Left sided abdominal pain Abdominal pain, unspecified site Need for influenza vaccination Need for prophylactic vaccination and inoculation against influenza Anxiety and depression Dysthymic disorder documented in this encounter [facility] note* Diagnosis Hypokalemia- Primary Hypopotassemia documented in this encounter [facility] note* Diagnosis Back pain, unspecified back location, unspecified back pain laterality, unspecified chronicity Left sided abdominal pain Abdominal pain, unspecified site documented in this encounter [facility] note* Diagnosis Encounter for screening mammogram for breast cancer documented in this encounter [facility] note* Diagnosis Back pain, unspecified back location, unspecified back pain laterality, unspecified chronicity Left sided abdominal pain Abdominal pain, unspecified site documented in this encounter [facility] note* Diagnosis Essential hypertension Unspecified essential hypertension [facility] Diagnosis Mass in neck Swelling, mass, or lump in head and neck documented in this encounter [facility] note* Diagnosis Chronic midline low back pain, unspecified whether sciatica present documented in this encounter [facility] note* Diagnosis Essential hypertension- Primary Unspecified essential hypertension Need for influenza vaccination Need for prophylactic vaccination and inoculation against influenza Ulcerative pancolitis without complication (HCC) Anxiety and depression Dysthymic disorder Chronic midline low back pain, unspecified whether sciatica present Smoker Tobacco use disorder Colitis Other and unspecified noninfectious gastroenteritis and colitis documented in this encounter [facility] note* Diagnosis Encounter for screening mammogram for breast cancer documented in this encounter [facility] note* Diagnosis Ulcerative pancolitis without complication (HCC) Colitis Other and unspecified noninfectious gastroenteritis and colitis documented in this encounter [facility] note* Diagnosis Ulcerative pancolitis without complication (HCC)- Primary Diarrhea, unspecified type documented in this encounter [facility] note* Diagnosis Eye drainage- Primary Redness or discharge of eye Ulcerative pancolitis without complication (HCC) Colitis Other and unspecified noninfectious gastroenteritis and colitis Chronic midline low back pain, unspecified whether sciatica present Myalgia Mylagia and myositis, unspecified documented in this encounter [facility] for referral (narrative)* Diagnostic Procedure Only (Routine) - Pending Review Specialty Diagnoses / Procedures Referred By Lorenza leiva Referred To Contact [facility] Diagnoses Encounter for screening mammogram for breast cancer Procedures SILVERIO SCREENING SCREENING MAMMOGRAPHY BI 2-VIEW BREAST INC CAD Khadijah Curran MD [address] [place] [address] [facility] [address] [place] [id number] Referral ID Status Reason Start Date Expiration Date Visits Requested Visits Authorized [id number] Pending Review Auto-Generat ed Referral 03/27/2022 04/26/2023 1 1 [facility] Diagnostic Procedure Only (Routine) - Pending Review Specialty Diagnoses / Procedures Referred By Lorenza leiva Referred To Contact [facility] IMAGING Diagnoses Mass in neck Procedures US EXTREMITY MASS/FLUID COLLECTION RIGHT Angela Calle APRN.SLITTER OPERATOR [address] [place] [address] [facility] Referral ID Status Reason Start Date Expiration Date Visits Requested Visits Authorized [id number] Pending Review Auto-Generat ed Referral 05/29/2023 06/27/2024 1 1 * Diagnostic Procedure Only (Routine) - Closed Specialty Diagnoses / Procedures Referred By Contac t Referred To Contact XR IMAGING Diagnoses Mass in neck Procedures XR CLAVICLE 2V RIGHT RADEX CLAVICLE COMPLETE Angela Calle APRN.CNP [address] [place] [address] X[facility] Referral ID Status Reason Start Date Expiration Date V isits Requested Visits Authorized [id number] Closed Auto-Generate d Referral 05/29/2023 06/27/2024 1 1 [facility] for referral (narrative)* Diagnostic Procedure Only (Routine) - Pending Review Specialty Diagnoses / Procedures Referred By Contac t Referred To Contact US IMAGING Diagnoses Mass in neck Procedures US HEAD/NECK SOFT TISSUE OTHER US SOFT TISSUE HEAD & NECK REAL TIME IMGE Angela Pierce APRN.CNP [address] [place] [address] [facility] Referral ID Status Reason Start Date Expiration Date Visits Requested Visits Authorized [id number] Pending Review Auto-Generat ed Referral 05/30/2023 06/28/2024 1 1 [facility] for referral (narrative)* Diagnostic Procedure Only (Routine) - Pending Review Specialty Diagnoses / Procedures Referred By Contac t Referred To Contact [facility] Diagnoses Encounter for screening mammogram for breast cancer Procedures SILVERIO SCREENING SCREENING MAMMOGRAPHY BI 2-VIEW BREAST INC Khadijah Stephens MD [address] [place] [address] [facility] [address] [place] [address] Referral ID Status Reason Start Date Expiration Date Visits Requested Visits Authorized [id number] Pending Review Auto-Generat ed Referral 02/25/2024 03/26/2025 1 1 [facility] for referral (narrative)* Diagnostic Procedure Only (Routine) - Closed Specialty Diagnoses / Procedures Referred By Contac t Referred To Contact XR IMAGING Diagnoses Mass in neck Procedures XR CLAVICLE 2V RIGHT RADEX CLAVICLE COMPLETE Angela Calle APRN.SLITTER OPERATOR [address] [place] [address] [place] [address] Referral ID Status Reason Start Date Expiration Date V isits Requested Visits Authorized [id number] Closed Auto-Generate d Referral 05/29/2023 06/27/2024 1 1 [facility] for referral (narrative)No reason for referral information [facility] Work Phone: Reason for visit Narrative* Diagnostic Procedure Only (Routine) - Closed Specialty Diagnoses / Procedures Referred By Contac t Referred To Contact XR IMAGING Diagnoses Mass in neck Procedures XR CLAVICLE 2V RIGHT RADEX CLAVICLE COMPLETE Angela Calle APRN.SLITTER OPERATOR [address] [place] [address] [place] [address] Referral ID Status Reason Start Date Expiration Date V isits Requested Visits Authorized [id number] Closed Auto-Generate d Referral 05/29/2023 06/27/2024 1 1 [facility] Summary Purpose Family History No Family History Records FoundUnknown Family Member Name Dates Details Family history of myocardial infarction: Mother, Father(V17.3, Z82.49) Status:Active Family history of malignant neoplasm of colon: Mother, Father(V16.0, Z80.0) Status:Active Family history of essential hypertension: Mother, Father(V17.49, Z82.49) Status:Active Unknown Family Member Name Dates Details Family history of myocardial infarction: Mother, Father(V17.3, Z82.49) Status:Active Family history of malignant neoplasm of colon: Mother, Father(V16.0, Z80.0) Status:Active Family history of essential hypertension: Mother, Father(V17.49, Z82.49) Status:Active Unknown Family Member Name Dates Details Family history of myocardial infarction: Mother, Father(V17.3, Z82.49) Status:Active Family history of malignant neoplasm of colon: Mother, Father(V16.0, Z80.0) Status:Active Family history of essential hypertension: Mother, Father(V17.49, Z82.49) Status:Active Unknown Family Member Name Dates Details Family history of myocardial infarction: Mother, Father(V17.3, Z82.49) Status:Active Family history of malignant neoplasm of colon: Mother, Father(V16.0, Z80.0) Status:Active Family history of essential hypertension: Mother, Father(V17.49, Z82.49) Status:Active Unknown Family Member Name Dates Details Family history of myocardial infarction: Mother, Father(V17.3, Z82.49) Status:Active Family history of malignant neoplasm of colon: Mother, Father(V16.0, Z80.0) Status:Active Family history of essential hypertension: Mother, Father(V17.49, Z82.49) Status:Active Unknown Family Member Name Dates Details Family history of myocardial infarction: Mother, Father(V17.3, Z82.49) Status:Active Family history of malignant neoplasm of colon: Mother, Father(V16.0, Z80.0) Status:Active Family history of essential hypertension: Mother, Father(V17.49, Z82.49) Status:Active Relationship Condition Age at Onset Recorded Date/T racheal Not Specified Malignant neoplasm of colon Unknown Cardiac disease Unknown Advance Directives No Advanced Directives Records Found Advance Directive Response Recorded Date/ Time Name of Medical Power of Paper Cutting Machine Operator Darnell January 09, 2023 2:39pm Living Will No January 09, 2023 2:39pm Power of Paper Cutting Machine Operator Yes January 09 2:39pm Advance Directive Response Recorded Date/ Time Living Will No January 09, 2023 2:39pm Power of Paper Cutting Machine Operator Yes January 09 2:39pm Chief Complaint FUV in office today abdominal pain, bloating, nausea, vomiting, diarrhea, occasional dark stools. Pt states that they are due for a colonoscopy but also wanting an EGD done at the same time. Patient is requsting a prescription for ZofranFUV in office today abdominal pain, bloating, nausea, vomiting, diarrhea, occasional dark stools. Pt states that they are due for a colonoscopy but also wanting an EGD done at the same time. Patient is requsting a prescription for ZofranFUV in office today abdominal pain, bloating, nausea, vomiting, diarrhea, occasional dark stools. Pt states that they are due for a colonoscopy but also wanting an EGD done at the same time. Patient is requsting a prescription for Zofran Reason for Referral Specialty Diagnoses / Procedures Referred By Contac t Referred To Contact Rehabilitation Diagnoses Back pain, unspecified back location, unspecified back pain laterality, unspecified chronicity Glo Amezcua MD [address] [address] Referral ID Status Reason Start Date Expiration Date V isits Requested Visits Authorized [id number] Authorized 12/24/2022 12/24/2023 1 1 Specialty Diagnoses / Procedures Referred By Contac t Referred To Contact Gynecology Diagnoses Hydrosalpinx Abdominal or pelvic swelling, mass, or lump, left lower quadrant Procedures CONSULT TO GYNECOLOGY OFFICE/OUTPATIENT [facility] 60-74 MINUTES Khadijah Curran MD [address] [place] [address] Referral ID Status Reason Start Date Expiration Date Visits Requested Visits Authorized [id number] Authorized PCP Requested Referral Auto-Generate d Referral 02/17/2023 02/17/2024 1 1 Specialty Diagnoses / Procedures Referred By Contac t Referred To Contact Rehabilitation Diagnoses Mid back pain Glo Amezcua MD [address] [address] Referral ID Status Reason Start Date Expiration Date V isits Requested Visits Authorized [id number] Authorized 05/06/2023 05/05/2024 1 1 Specialty Diagnoses / Procedures Referred By Contac t Referred To Contact Cardiology Diagnoses Edema of both legs Procedures Echocardiogram complete Glo Amezcua MD [address] [address] [facility] [address] [place] [address] Referral ID Status Reason Start Date Expiration Date V isits Requested Visits Authorized [id number] New Request 05/06/2023 05/05/2024 1 1 Specialty Diagnoses / Procedures Referred By Contac t Referred To Contact Gastroenterology Diagnoses Ulcerative colitis with complication, unspecified location (HCC) Glo Amezcua MD [address] [address] Mary Villarreal MD [address] [facility] [address] [place] [address] Referral ID Status Reason Start Date Expiration Date Visits Requested Visits Authorized [id number] Authorized Specialty Services Required/Pat ient's Best Interest 05/06/2023 05/05/2024 1 1 Scheduling Instructions [facility] , Dr.Maya Villarreal in [place] Specialty Diagnoses / Procedures Referred By Contac t Referred To Contact Orthopedics Diagnoses Mass in neck Procedures CONSULT TO ORTHOPAEDICS OFFICE/OUTPATIENT [facility] 60-74 MINUTES Angela Calle APRN.[facility] [address] [place] [address] Referral ID Status Reason Start Date Expiration Date Visits Requested Visits Authorized [id number] Authorized PCP Requested Referral 06/12/2023 06/11/2024 1 1 Specialty Diagnoses / Procedures Referred By Contac t Referred To Contact [facility] Diagnoses Arthritis of right sternoclavicular joint Biceps tendonitis on right Procedures CONSULT TO PHYSICAL THERAPY PHYSICAL THERAPY EVALUATION HIGH COMPLEX 45 MINS Robert Camacho PA [address] [address] [facility] [address] [place] [address], [place] [address] Referral ID Status Reason Start Date Expiration Date Visits Requested Visits Authorized [id number] Pending Review Auto-Generat ed Referral 06/16/2023 06/15/2024 1 1 Specialty Diagnoses / Procedures Referred By Lorenza leiva Referred To Contact Diagnoses Encounter for screening for lung cancer Procedures CONSULT LUNG CANCER SCREENING CLINIC Viki Hernandez APRN.SLITTER OPERATOR [address] [place] [address] Referral ID Status Reason Start Date Expiration Date Visits Requested Visits Authorized [id number] Ref Not Required PCP Requested Referral 07/09/2023 10/07/2023 1 1 Chief Complaint and Reason for Visit Chief Complaint DEHYDRATION AND BRIJESH DEHYDRATION AND BRIJESH DEHYDRATION AND BRIJESH Reason for Visit BRIJESH (acute kidney in jury) Dehydration History of IBS Hyperkalemia Nausea vomiting and diarrhea Chief Complaint MASS IN NECK Chief Complaint Admit Date ABDOMINAL PAIN DIARRHEA May 20, 2025 3:15pm Chief Complaint Admit Date ABDOMINAL PAIN DIARRHEA May 20, 2025 3:15pm NEED EORDER? May 20, 2025 4:17 pm Reason for Visit Admit Date Chronic pain May 20, 2025 3:15 pm Ulcerative colitis May 20, 2025 3:15 pm Health Concerns Infection Onset Date Last Indicated Resolved Time COVID-19 Rule-Out 01/15/2023 01/15/2023 01/15/2023 8:03 PM EDT Medications Administered Section Inactive Administered Medications - up to 3 most recent administrations Medication Order MAR Action Action Date Dose Rate Site lidocaine (PF) 10 mg/mL (1 %) 5 mL injection (XYLOCAINE) 5 mL, Injection - FOR ORTHO USE ONLY, ONE TIME INJECTION, 1 dose, Starting on Fri06/16/23 at 1420, Until Fri06/16/23 at 1420 Given 06/16/2023 2:20 PM EDT 5 mL Shoulder, Right triamcinolone acetonide 80 mg injection (KeNALog 40) 80 mg, Injection - FOR ORTHO USE ONLY, ONE TIME INJECTION, 1 dose, Starting on Fri06/16/23 at 1420, Until Fri06/16/23 at 1420 Given 06/16/2023 2:20 PM EDT 80 mg Shoulder, Right Additional Source Comments INFORMATION SOURCE (unrecogn ized section and content) DATE CREATED AUTHOR 02/05/2019 [facility] DATE CREATED AUTHOR AUTHOR'S ORGANIZ ATION 06/22/2022 [employer] DATE CREATED AUTHOR AUTHOR'S ORGANIZ ATION 08/02/2022 [facility] DATE CREATED AUTHOR AUTHOR'S ORGANIZ ATION 12/28/2022 [facility] DATE CREATED AUTHOR AUTHOR'S ORGANIZ ATION 01/23/2023 [facility] DATE CREATED AUTHOR AUTHOR'S ORGANIZ ATION 01/28/2023 [facility] DATE CREATED AUTHOR AUTHOR'S ORGANIZ ATION 07/08/2023 [facility] DATE CREATED AUTHOR AUTHOR'S ORGANIZ ATION 07/09/2023 [facility] DATE CREATED AUTHOR AUTHOR'S ORGANIZ ATION 05/29/2025 [facility] DATE CREATED AUTHOR AUTHOR'S ORGANIZ ATION 07/14/2025 [facility] Source Comments (unrecognize d section and content) In the event this informatio n is protected by the Federal Confidentiality of Alcohol and Drug Abuse Patient Records regulations: The Federal rules restrict any use of the information to criminally investigate or prosecute any alcohol or drug abuse patient.[facility] the event this information is protected by the Federal Confidentiality of Alcohol and Drug Abuse Patient Records regulations: The Federal rules restrict any use of the information to criminally investigate or prosecute any alcohol or drug abuse patient.[facility] HospitalIn the event this information is protected by the Federal Confidentiality of Alcohol and Drug Abuse Patient Records regulations: The Federal rules restrict any use of the information to criminally investigate or prosecute any alcohol or drug abuse patient.[facility] HospitalIn the event this information is protected by the Federal Confidentiality of Alcohol and Drug Abuse Patient Records regulations: The Federal rules restrict any use of the information to criminally investigate or prosecute any alcohol or drug abuse patient.[facility] HospitalIn the event this information is protected by the Federal Confidentiality of Alcohol and Drug Abuse Patient Records regulations: The Federal rules restrict any use of the information to criminally investigate or prosecute any alcohol or drug abuse patient.[facility] HospitalIn the event this information is protected by the Federal Confidentiality of Alcohol and Drug Abuse Patient Records regulations: The Federal rules restrict any use of the information to criminally investigate or prosecute any alcohol or drug abuse patient.[facility] HospitalIn the event this information is protected by the Federal Confidentiality of Alcohol and Drug Abuse Patient Records regulations: The Federal rules restrict any use of the information to criminally investigate or prosecute any alcohol or drug abuse patient.[facility] HospitalIn the event this information is protected by the Federal Confidentiality of Alcohol and Drug Abuse Patient Records regulations: The Federal rules restrict any use of the information to criminally investigate or prosecute any alcohol or drug abuse patient.[facility] HospitalIn the event this information is protected by the Federal Confidentiality of Alcohol and Drug Abuse Patient Records regulations: The Federal rules restrict any use of the information to criminally investigate or prosecute any alcohol or drug abuse patient.[facility] HospitalIn the event this information is protected by the Federal Confidentiality of Alcohol and Drug Abuse Patient Records regulations: The Federal rules restrict any use of the information to criminally investigate or prosecute any alcohol or drug abuse patient.[facility] HospitalIn the event this information is protected by the Federal Confidentiality of Alcohol and Drug Abuse Patient Records regulations: The Federal rules restrict any use of the information to criminally investigate or prosecute any alcohol or drug abuse patient.[facility] HospitalIn the event this information is protected by the Federal Confidentiality of Alcohol and Drug Abuse Patient Records regulations: The Federal rules restrict any use of the information to criminally investigate or prosecute any alcohol or drug abuse patient.[facility] HospitalIn the event this information is protected by the Federal Confidentiality of Alcohol and Drug Abuse Patient Records regulations: The Federal rules restrict any use of the information to criminally investigate or prosecute any alcohol or drug abuse patient.[facility] HospitalIn the event this information is protected by the Federal Confidentiality of Alcohol and Drug Abuse Patient Records regulations: The Federal rules restrict any use of the information to criminally investigate or prosecute any alcohol or drug abuse patient.[facility] HospitalIn the event this information is protected by the Federal Confidentiality of Alcohol and Drug Abuse Patient Records regulations: The Federal rules restrict any use of the information to criminally investigate or prosecute any alcohol or drug abuse patient.[facility] HospitalIn the event this information is protected by the Federal Confidentiality of Alcohol and Drug Abuse Patient Records regulations: The Federal rules restrict any use of the information to criminally investigate or prosecute any alcohol or drug abuse patient.[facility] HospitalIn the event this information is protected by the Federal Confidentiality of Alcohol and Drug Abuse Patient Records regulations: The Federal rules restrict any use of the information to criminally investigate or prosecute any alcohol or drug abuse patient.[facility] HospitalIn the event this information is protected by the Federal Confidentiality of Alcohol and Drug Abuse Patient Records regulations: The Federal rules restrict any use of the information to criminally investigate or prosecute any alcohol or drug abuse patient.[facility] HospitalIn the event this information is protected by the Federal Confidentiality of Alcohol and Drug Abuse Patient Records regulations: The Federal rules restrict any use of the information to criminally investigate or prosecute any alcohol or drug abuse patient.[facility] HospitalIn the event this information is protected by the Federal Confidentiality of Alcohol and Drug Abuse Patient Records regulations: The Federal rules restrict any use of the information to criminally investigate or prosecute any alcohol or drug abuse patient.[facility] HospitalIn the event this information is protected by the Federal Confidentiality of Alcohol and Drug Abuse Patient Records regulations: The Federal rules restrict any use of the information to criminally investigate or prosecute any alcohol or drug abuse patient.[facility] HospitalIn the event this information is protected by the Federal Confidentiality of Alcohol and Drug Abuse Patient Records regulations: The Federal rules restrict any use of the information to criminally investigate or prosecute any alcohol or drug abuse patient.[facility] HospitalIn the event this information is protected by the Federal Confidentiality of Alcohol and Drug Abuse Patient Records regulations: The Federal rules restrict any use of the information to criminally investigate or prosecute any alcohol or drug abuse patient.[facility] HospitalIn the event this information is protected by the Federal Confidentiality of Alcohol and Drug Abuse Patient Records regulations: The Federal rules restrict any use of the information to criminally investigate or prosecute any alcohol or drug abuse patient.[facility] HospitalIn the event this information is protected by the Federal Confidentiality of Alcohol and Drug Abuse Patient Records regulations: The Federal rules restrict any use of the information to criminally investigate or prosecute any alcohol or drug abuse patient.[facility] HospitalIn the event this information is protected by the Federal Confidentiality of Alcohol and Drug Abuse Patient Records regulations: The Federal rules restrict any use of the information to criminally investigate or prosecute any alcohol or drug abuse patient.[facility] HospitalIn the event this information is protected by the Federal Confidentiality of Alcohol and Drug Abuse Patient Records regulations: The Federal rules restrict any use of the information to criminally investigate or prosecute any alcohol or drug abuse patient.[facility] HospitalIn the event this information is protected by the Federal Confidentiality of Alcohol and Drug Abuse Patient Records regulations: The Federal rules restrict any use of the information to criminally investigate or prosecute any alcohol or drug abuse patient.[facility] HospitalIn the event this information is protected by the Federal Confidentiality of Alcohol and Drug Abuse Patient Records regulations: The Federal rules restrict any use of the information to criminally investigate or prosecute any alcohol or drug abuse patient.[facility] HospitalIn the event this information is protected by the Federal Confidentiality of Alcohol and Drug Abuse Patient Records regulations: The Federal rules restrict any use of the information to criminally investigate or prosecute any alcohol or drug abuse patient.[facility] the event this information is protected by the Federal Confidentiality of Alcohol and Drug Abuse Patient Records regulations: The Federal rules restrict any use of the information to criminally investigate or prosecute any alcohol or drug abuse patient.[facility] HospitalIn the event this information is protected by the Federal Confidentiality of Alcohol and Drug Abuse Patient Records regulations: The Federal rules restrict any use of the information to criminally investigate or prosecute any alcohol or drug abuse patient.[facility] HospitalIn the event this information is protected by the Federal Confidentiality of Alcohol and Drug Abuse Patient Records regulations: The Federal rules restrict any use of the information to criminally investigate or prosecute any alcohol or drug abuse patient.[facility] ClinicIn the event this information is protected by the Federal Confidentiality of Alcohol and Drug Abuse Patient Records regulations: The Federal rules restrict any use of the information to criminally investigate or prosecute any alcohol or drug abuse patient.[facility] HospitalIn the event this information is protected by the Federal Confidentiality of Alcohol and Drug Abuse Patient Records regulations: The Federal rules restrict any use of the information to criminally investigate or prosecute any alcohol or drug abuse patient.[facility] HospitalIn the event this information is protected by the Federal Confidentiality of Alcohol and Drug Abuse Patient Records regulations: The Federal rules restrict any use of the information to criminally investigate or prosecute any alcohol or drug abuse patient.[facility] HospitalIn the event this information is protected by the Federal Confidentiality of Alcohol and Drug Abuse Patient Records regulations: The Federal rules restrict any use of the information to criminally investigate or prosecute any alcohol or drug abuse patient.[facility] HospitalIn the event this information is protected by the Federal Confidentiality of Alcohol and Drug Abuse Patient Records regulations: The Federal rules restrict any use of the information to criminally investigate or prosecute any alcohol or drug abuse patient.[facility] HospitalIn the event this information is protected by the Federal Confidentiality of Alcohol and Drug Abuse Patient Records regulations: The Federal rules restrict any use of the information to criminally investigate or prosecute any alcohol or drug abuse patient.[facility] HospitalIn the event this information is protected by the Federal Confidentiality of Alcohol and Drug Abuse Patient Records regulations: The Federal rules restrict any use of the information to criminally investigate or prosecute any alcohol or drug abuse patient.[facility] HospitalIn the event this information is protected by the Federal Confidentiality of Alcohol and Drug Abuse Patient Records regulations: The Federal rules restrict any use of the information to criminally investigate or prosecute any alcohol or drug abuse patient.[facility] HospitalIn the event this information is protected by the Federal Confidentiality of Alcohol and Drug Abuse Patient Records regulations: The Federal rules restrict any use of the information to criminally investigate or prosecute any alcohol or drug abuse patient.[facility] HospitalIn the event this information is protected by the Federal Confidentiality of Alcohol and Drug Abuse Patient Records regulations: The Federal rules restrict any use of the information to criminally investigate or prosecute any alcohol or drug abuse patient.[facility] HospitalIn the event this information is protected by the Federal Confidentiality of Alcohol and Drug Abuse Patient Records regulations: The Federal rules restrict any use of the information to criminally investigate or prosecute any alcohol or drug abuse patient.[facility] HospitalIn the event this information is protected by the Federal Confidentiality of Alcohol and Drug Abuse Patient Records regulations: The Federal rules restrict any use of the information to criminally investigate or prosecute any alcohol or drug abuse patient.[facility] HospitalIn the event this information is protected by the Federal Confidentiality of Alcohol and Drug Abuse Patient Records regulations: The Federal rules restrict any use of the information to criminally investigate or prosecute any alcohol or drug abuse patient.[facility] HospitalIn the event this information is protected by the Federal Confidentiality of Alcohol and Drug Abuse Patient Records regulations: The Federal rules restrict any use of the information to criminally investigate or prosecute any alcohol or drug abuse patient.[facility] HospitalIn the event this information is protected by the Federal Confidentiality of Alcohol and Drug Abuse Patient Records regulations: The Federal rules restrict any use of the information to criminally investigate or prosecute any alcohol or drug abuse patient.[facility] HospitalIn the event this information is protected by the Federal Confidentiality of Alcohol and Drug Abuse Patient Records regulations: The Federal rules restrict any use of the information to criminally investigate or prosecute any alcohol or drug abuse patient.[facility] HospitalIn the event this information is protected by the Federal Confidentiality of Alcohol and Drug Abuse Patient Records regulations: The Federal rules restrict any use of the information to criminally investigate or prosecute any alcohol or drug abuse patient.[facility] HospitalIn the event this information is protected by the Federal Confidentiality of Alcohol and Drug Abuse Patient Records regulations: The Federal rules restrict any use of the information to criminally investigate or prosecute any alcohol or drug abuse patient.[facility] HospitalIn the event this information is protected by the Federal Confidentiality of Alcohol and Drug Abuse Patient Records regulations: The Federal rules restrict any use of the information to criminally investigate or prosecute any alcohol or drug abuse patient.[facility] HospitalIn the event this information is protected by the Federal Confidentiality of Alcohol and Drug Abuse Patient Records regulations: The Federal rules restrict any use of the information to criminally investigate or prosecute any alcohol or drug abuse patient.[facility] HospitalIn the event this information is protected by the Federal Confidentiality of Alcohol and Drug Abuse Patient Records regulations: The Federal rules restrict any use of the information to criminally investigate or prosecute any alcohol or drug abuse patient.[facility] HospitalIn the event this information is protected by the Federal Confidentiality of Alcohol and Drug Abuse Patient Records regulations: The Federal rules restrict any use of the information to criminally investigate or prosecute any alcohol or drug abuse patient.[facility] HospitalIn the event this information is protected by the Federal Confidentiality of Alcohol and Drug Abuse Patient Records regulations: The Federal rules restrict any use of the information to criminally investigate or prosecute any alcohol or drug abuse patient.[facility] HospitalIn the event this information is protected by the Federal Confidentiality of Alcohol and Drug Abuse Patient Records regulations: The Federal rules restrict any use of the information to criminally investigate or prosecute any alcohol or drug abuse patient.[facility] HospitalIn the event this information is protected by the Federal Confidentiality of Alcohol and Drug Abuse Patient Records regulations: The Federal rules restrict any use of the information to criminally investigate or prosecute any alcohol or drug abuse patient.[facility] HospitalIn the event this information is protected by the Federal Confidentiality of Alcohol and Drug Abuse Patient Records regulations: The Federal rules restrict any use of the information to criminally investigate or prosecute any alcohol or drug abuse patient.[facility] HospitalIn the event this information is protected by the Federal Confidentiality of Alcohol and Drug Abuse Patient Records regulations: The Federal rules restrict any use of the information to criminally investigate or prosecute any alcohol or drug abuse patient.[facility] HospitalIn the event this information is protected by the Federal Confidentiality of Alcohol and Drug Abuse Patient Records regulations: The Federal rules restrict any use of the information to criminally investigate or prosecute any alcohol or drug abuse patient.[facility] HospitalIn the event this information is protected by the Federal Confidentiality of Alcohol and Drug Abuse Patient Records regulations: The Federal rules restrict any use of the information to criminally investigate or prosecute any alcohol or drug abuse patient.[facility] HospitalIn the event this information is protected by the Federal Confidentiality of Alcohol and Drug Abuse Patient Records regulations: The Federal rules restrict any use of the information to criminally investigate or prosecute any alcohol or drug abuse patient.[facility] HospitalIn the event this information is protected by the Federal Confidentiality of Alcohol and Drug Abuse Patient Records regulations: The Federal rules restrict any use of the information to criminally investigate or prosecute any alcohol or drug abuse patient.[facility] Reason for Visit (unrecogniz ed section and content) Reason Comments Cough x4 days; nausea/vomi ting, GUILLORY Flank Pain right flank x2-3 day s Reason Comments Medication Request Reason Comments Results Reason Onset Date Comments Refill Request 04/22/2022 Reason Comments Lab Orders Reason Comments Prescription Refills Reason Comments 6 Month Exam Reason Comments Refill Request Reason Onset Date Comments Refill Request 07/16/2022 Reason Comments Insurance Forms Reason Comments Acute Visit vomiting/chills/ wyatt rrhea Reason Comments Results Flu/Covid Reason Comments Medication Request Prednisone Reason Onset Date Comments Refill Request 12/18/2022 Reason Comments Establish Care Reason Comments Follow Up Hospital Er follow u p Reason Onset Date Comments Transition Of Care 01/20/2023 TCM Initial H ospital Discharge 01/18/2023 Reason Comments Medication Problem 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 [address] [place] [id number] Referral ID Status Reason Start Date Expiration Date V isits Requested Visits Authorized [id number] Closed Auto-Generate d Referral 01/27/2023 01/27/2024 1 1 Reason Onset Date Comments Transition Of Care 01/13/2023 Alcohol Problem 01/13/2023 Reason Comments Results Reason Comments Patient Update Reason Onset Date Comments labs 03/10/2023 Reason Comments Follow-up 6 week f/u-legs are swelling, would like a refill on flexeril (not on her active med list) Hypertension Reason Onset Date Comments Refill Request 05/26/2023 Reason Comments Follow Up Lump on clavicle Reason Comments Orders Reason Comments Orders Reason Comments Pain (Shoulder Pain) Specialty Diagnoses / Procedures Referred By Contac t Referred To Contact Orthopedics Diagnoses Mass in neck Procedures CONSULT TO ORTHOPAEDICS OFFICE/OUTPATIENT NEW HIGH MDM 60-74 MINUTES Angela Calle, MAGNUS.SLITTER OPERATOR [address] [place] [address] Referral ID Status Reason Start Date Expiration Date V isits Requested Visits Authorized [id number] Closed PCP Requested Referral 06/12/2023 06/11/2024 1 1 Reason Comments Foot Pain Left foot pain and s welling. Has a lump on top. States she just had cortisone injection and prednisone for her shoulder and it has helped her foot. Reason Onset Date Comments Refill Request 06/20/2023 Reason Comments Wellness Reason Comments Results Labs Reason Onset Date Comments Diarrhea Chronic Immunizations 11/28/2023 Flu vaccination Reason Comments Results Labs/Urine Reason Onset Date Comments Refill Request 02/27/2024 Reason Onset Date Comments Refill Request 05/26/2024 Reason Onset Date Comments Refill Request 07/14/2024 Reason Onset Date Comments Refill Request 08/11/2024 Reason Onset Date Comments Refill Request 08/30/2024 Reason Onset Date Comments Refill Request 11/19/2024 Reason Onset Date Comments Refill Request 12/27/2024 Reason Onset Date Comments Medication Follow-up Immunizations 12/31/2024 Flu vaccination Reason Onset Date Comments Refill Request 01/24/2025 Reason Onset Date Comments Refill Request 02/08/2025 Reason Onset Date Comments Refill Request 01/15/2025 Reason Onset Date Comments Refill Request 05/02/2025 Reason Comments Heart questions Vomiting Reason Comments Patient Question Scanned Labs from Dr Duckworth Reason Comments Eye Problem Review Labs Specialty Diagnoses / Procedures Referred By Lorenza leiva Referred To Contact [facility] Diagnoses follow up Procedures follow up Khadijah Curran MD [address] [place] [address] Phone: tel: fax: [facility] [place] [address] [place] [address] Phone: tel: Referral ID Status Reason Start Date Expiration Date Visits Requested Visits Authorized [id number] New Request OON/Self Pay Override 05/23/2025 08/31/2026 1 1 Care Teams (unrecognized sec tion and content) Post Doctoral Researcher Relationship Specialty Start Date End Date Khadijah Curran MD [address] [place], [place] [id number] PCP - General 09/14/07 Post Doctoral Researcher Relationship Specialty Start Date End Date Khadijah Curran MD [address] [facility] [place] [address] PCP - General 09/14/07 Post Doctoral Researcher Relationship Specialty Start Date End Date Khadijah Curran MD [address] [facility] [place] [address] PCP - General 09/14/07 Post Doctoral Researcher Relationship Specialty Start Date End Date Khadijah Curran MD [address] [facility] [place] [address] PCP - General 09/14/07 Post Doctoral Researcher Relationship Specialty Start Date End Date Khadijah Curran MD [address] [facility] [place] [address] PCP - General 09/14/07 Post Doctoral Researcher Relationship Specialty Start Date End Date Khadijah Curran MD [address] [facility] [place] [address] PCP - General 09/14/07 Post Doctoral Researcher Relationship Specialty Start Date End Date Khadijah Curran MD [address] [facility] [place] [address] PCP - General 09/14/07 Post Doctoral Researcher Relationship Specialty Start Date End Date Khadijah Curran MD [address] [facility] [place] [address] PCP - General 09/14/07 Post Doctoral Researcher Relationship Specialty Start Date End Date Khadijah Curran MD [address] [facility] [place] [address] PCP - General 09/14/07 Post Doctoral Researcher Relationship Specialty Start Date End Date Khadijah Curran MD [address] [facility] [place] [address] PCP - General 09/14/07 Post Doctoral Researcher Relationship Specialty Start Date End Date Khadijah Curran MD [address] [place] [address] PCP - General 09/14/07 Post Doctoral Researcher Relationship Specialty Start Date End Date Khadijah Curran MD [address] [place], [place] [address] PCP - General 09/14/07 Post Doctoral Researcher Relationship Specialty Start Date End Date Glo Amezcua MD [address] [address] PCP - General Family Medicine 12/24/22 Post Doctoral Researcher Relationship Specialty Start Date End Date Glo Amezcua MD [address] [address] PCP - General Family Medicine 12/24/22 Post Doctoral Researcher Relationship Specialty Start Date End Date Glo Amezcua MD [address] [address] PCP - General Family Medicine 12/24/22 Post Doctoral Researcher Relationship Specialty Start Date End Date Khadijah Curran MD [address] [place], [place] [id number] PCP - General 09/14/07 Team Status: Active Member Role Status Dates Dr. Khadijah Curran MD Family Provider Active Dr. Khadijah Curran MD Primary Care Provider Active Team Status: Active Member Role Status Dates Dr. Khadijah Curran MD Primary Care Provider Active Dr. Tyrel Denny MD Emergency Provider Active Dr. Jose Hinojosa MD Admit Provi gilberto, Attending Provider, Other Provider Active Team Status: Inactive Member Role Status Dates Dr. Khadijah Curran MD Primary Care Provider Active Dr. Tyrel Denny MD Emergency Provider Active Dr. Jose Hinojosa MD Admit Provider, Other Pro vider Active Dr. Michelle Richter MD Attending Provider Active Post Doctoral Researcher Relationship Specialty Start Date End Date Khadijah Curran MD [address] [place], [place] [address] PCP - General 09/14/07 Post Doctoral Researcher Relationship Specialty Start Date End Date Khadijah Curran MD [address] [place] [address] PCP - General 09/14/07 Post Doctoral Researcher Relationship Specialty Start Date End Date Khadijah Curran MD [address] [place], [place] [id number] PCP - General 09/14/07 Post Doctoral Researcher Relationship Specialty Start Date End Date Glo Amezcua MD [address] [place] [address] PCP - General Family Medicine 12/24/22 Glo Amezcua MD [address] [place], [place] [id number] PCP - [facility] Provider - [facility] 10/27/19 03/25/23 Post Doctoral Researcher Relationship Specialty Start Date End Date Glo Amezcua MD [address] [place], [place] [id number] PCP - General Family Medicine 12/24/22 Post Doctoral Researcher Relationship Specialty Start Date End Date Khadijah Curran MD [address] [place] [address] PCP - General 09/14/07 Post Doctoral Researcher Relationship Specialty Start Date End Date Khadijah Curran MD [address] [place] [address] PCP - General 09/14/07 Post Doctoral Researcher Relationship Specialty Start Date End Date Khadijah Curran MD [address] [place] [address] PCP - General 09/14/07 Post Doctoral Researcher Relationship Specialty Start Date End Date Khadijah Curran MD [address] [place] [address] PCP - General 09/14/07 Post Doctoral Researcher Relationship Specialty Start Date End Date Khadijah Curran MD [address] [place] [address] PCP - General 09/14/07 Team Status: Inactive Member Role Status Dates Dr. Khadijah Curran MD Primary Care Provider Active Angela Calle , ROCK LOADER-C Attending Provider, Gissell chu Active Post Doctoral Researcher Relationship Specialty Start Date End Date Khadijah Curran MD [address] [place] [address] PCP - General 09/14/07 Post Doctoral Researcher Relationship Specialty Start Date End Date Glo Amezcua MD [address] [place] [address] PCP - General Family Medicine 12/24/22 Glo Amezcua MD [facility] [address] [address] PCP - [facility] Attributed Provider - [facility] 10/27/19 10/26/50 Post Doctoral Researcher Relationship Specialty Start Date End Date Khadijah Curran MD [address] [place] [address] PCP - General 09/14/07 Post Doctoral Researcher Relationship Specialty Start Date End Date Glo Amezcua MD [address] [address] PCP - General Family Medicine 12/24/22 Glo Amezcua MD [address] [place] [address] PCP - [facility] Provider - [facility] 10/27/19 10/26/50 Post Doctoral Researcher Relationship Specialty Start Date End Date Khadijah Curran MD [address] [place] [address] PCP - General 09/14/07 Post Doctoral Researcher Relationship Specialty Start Date End Date Khadijah Curran MD [address] [place] [address] PCP - General 09/14/07 Post Doctoral Researcher Relationship Specialty Start Date End Date Khadijah Curran MD [address] [place] [address] PCP - General 09/14/07 Post Doctoral Researcher Relationship Specialty Start Date End Date Khadijah Curran MD [address] [place] [address] PCP - General 09/14/07 Post Doctoral Researcher Relationship Specialty Start Date End Date Khadijah Curran MD [address] [place] [address] PCP - General 09/14/07 Post Doctoral Researcher Relationship Specialty Start Date End Date Khadijah Curran MD [address] [place] [address] PCP - General 09/14/07 Post Doctoral Researcher Relationship Specialty Start Date End Date Khadijah Curran MD [address] [place] [address] PCP - General 09/14/07 Post Doctoral Researcher Relationship Specialty Start Date End Date Khadijah Curran MD [address] [place] [address] PCP - General 09/14/07 Post Doctoral Researcher Relationship Specialty Start Date End Date Khadijah Curran MD [address] [place] [address] PCP - General 09/14/07 Post Doctoral Researcher Relationship Specialty Start Date End Date Khadijah Curran MD [address] [place] [address] PCP - General 09/14/07 Post Doctoral Researcher Relationship Specialty Start Date End Date Khadijah Curran MD [address] [place] [address] PCP - General 09/14/07 Post Doctoral Researcher Relationship Specialty Start Date End Date Khadijah Curran MD [address] [place] [address] PCP - General 09/14/07 Viki Hernandez APRN.SLITTER OPERATOR [address] [place] [address] Surveillance Manager Family Medicine 10/03/24 Mathieu Velasco APRN.SLITTER OPERATOR [address] [facility] [place] [address] Surveillance Manager [facility] 10/12/24 Post Doctoral Researcher Relationship Specialty Start Date End Date Khadijah Curran MD [address] [facility] [place] [address] PCP - General 09/14/07 Viki Hernandez APRN.SLITTER OPERATOR [address] [facility] [place] [address] Surveillance Manager [facility] Medicine 10/03/24 Mathieu Velasco APRN.SLITTER OPERATOR [address] [facility] [place] [address] [facility] Post Doctoral Researcher Relationship Specialty Start Date End Date Khadijah Curran MD [address] [facility] [place] [address] PCP - General 09/14/07 Viki Hernandez APRN.SLITTER OPERATOR [address] [facility] [place] [address] Surveillance Manager Family Medicine 10/03/24 Mathieu Velasco APRN.SLITTER OPERATOR [address] [facility] [place] [address] [facility]/12/24 Post Doctoral Researcher Relationship Specialty Start Date End Date Khadijah Curran MD [address] [facility] [place] [address] PCP - General 09/14/07 Viki Hernandez APRN.SLITTER OPERATOR [address] [facility] [place] [address] Surveillance Manager Family Medicine 10/03/24 Mathieu Velasco APRN.SLITTER OPERATOR [address] [place] [address] Surveillance Manager Family Medicine 10/12/24 Post Doctoral Researcher Relationship Specialty Start Date End Date Khadijah Curran MD [address] [place] [address] PCP - General 09/14/07 Viki Hernandez APRN.SLITTER OPERATOR [address] [place] [address] Surveillance Manager Family Medicine 10/03/24 Mathieu Velasco APRN.SLITTER OPERATOR [address] [place] [address] Surveillance Manager [facility] 10/12/24 Post Doctoral Researcher Relationship Specialty Start Date End Date Khadijah Curran MD [address] [place] [address] PCP - General 09/14/07 Viki Hernandez APRN.SLITTER OPERATOR [address] [place] [address] Surveillance Manager Family Medicine 10/03/24 Mathieu Velasco APRN.SLITTER OPERATOR [address] [facility] [place] [address] Surveillance Manager Family Medicine 10/12/24 Post Doctoral Researcher Relationship Specialty Start Date End Date Khadijah Curran MD [address] [facility] [place] [address] PCP - General 09/14/07 Viki Hernandez APRN.SLITTER OPERATOR [address] [place] [address] Surveillance Manager Family Medicine 10/03/24 Mathieu Velasco APRN.SLITTER OPERATOR [address] [place] [address] Surveillance Manager Family [facility] 10/12/24 Post Doctoral Researcher Relationship Specialty Start Date End Date Khadijah Curran MD [address] [place] [address] PCP - General 09/14/07 Mathieu Velasco APRN.SLITTER OPERATOR [address] [place] [address] Surveillance Manager [facility] 10/12/24 Post Doctoral Researcher Relationship Specialty Start Date End Date Khadijah Curran MD [address] [place] [address] PCP - General 09/14/07 Mathieu Velasco APRN.SLITTER OPERATOR [address] [place] [address] Surveillance Manager [facility] 10/12/24 Post Doctoral Researcher Relationship Specialty Start Date End Date Khadijah Curran MD [address] [place] [address] PCP - General 09/14/07 Mathieu Velasco APRN.SLITTER OPERATOR [address] [place] [address] Surveillance Manager [facility] 10/12/24 Team Status: Active Member Role/Relationship Status Dates Dr. Khadijah Curran MD Family Provider Active Dr. Khadijah Curran MD Primary Care Provider Active Team Status: Inactive Member Role/Relationship Status Dates Dr. Khadijah Curran MD Primary Care Provider Active Start: May 20, 2025 End: May 20, 2025 Dr. Khadijah Curran MD Referring Provider Active Start: May 20, 2025 End: May 20, 2025 Dr. Robi Duckworth DO Attending Provider Active Start: May 20, 2025 End: May 20, 2025 Post Doctoral Researcher Relationship Specialty Start Date End Date Khadijah Curran MD [address] [place], [place] [address] PCP - General 09/14/07 Mathieu Velasco APRN.SLITTER OPERATOR [address] [place], [place] [address] [facility] 10/12/24 Team Status: Inactive Member Role/Relationship Status Dates Dr. Khadijah Curran MD Primary Care Provider Active Start: May 20, 2025 End: May 20, 2025 Dr. Robi Duckworth DO Attending Provider Active Start: May 20, 2025 End: May 20, 2025 Dr. Robi Duckworth DO Referring Provider Active Start: May 20, 2025 End: May 20, 2025 Post Doctoral Researcher Relationship Specialty Start Date End Date Khadijah Curran MD [address] [place], [place] [address] PCP - General 09/14/07 Mathieu Velasco APRN.SLITTER OPERATOR [address] [place], [place] [address] [facility] 10/12/24 Goals (unrecognized section and content) Goals may be documented in a n alternate sectionGoals may be documented in an alternate sectionGoals may be documented in an alternate section FOR RECORDS PERTAINING TO PATIENTS WHO ARE OR HAVE BEEN ENROLLED IN A CHEMICAL DEPENDENCY/SUBSTANCEABUSE PROGRAM, SOME INFORMATION MAY BE OMITTED. This clinical summary was aggregated from multiple sources. Caution should be exercised in using it in the provision of clinical care. This summary normalizes information from multiple sources, and as a consequence, information in this document may materially change the coding, format and clinical context of patient data. In addition, data may be omitted in some cases. CLINICAL DECISIONS SHOULD BE BASED ON THE PRIMARY CLINICAL RECORDS. [employer] [facility] provides no warranty or guarantee of the accuracy or completeness of information in this document.
--- NOTE | 2025-07-15 08:22 | HP.PCM_ITS ---
HPI - General General Date of Admission: 07/15/25 Date of Service: 07/15/25 Chief Complaint: abdominal pain and diarrhea HPI Narrative MAIN SPENCE, is a 60 F who presents for the evaluation of abdominal pain and diarrhea *BGI established 7.25.25 pt presents with history of ulcerative pancolitis and chronic diarrhea. Pt reports that she has tried Mesalamine before and it was not effective. Pt states that her last colonoscopy was about 5 years ago. Pt reports that she has watery diarrhea every morning. pt reports that mother had Crohn's disease and father had colon cancer. Pt reports that she thinks she has a parasite because she keeps finding bugs in her eyes. Pt reports that she has smoked 1/2 PPD of cigarettes for the past 40 years, reports daily marijuana use. [facility] Medical History Post-menopausal History of steroid therapy Arthritis Fatty liver Back pain Syncope Gastric reflux Smoker Hoarseness History of echocardiogram Hypertension Substance abuse Anxiety History of IBS Home Medications ?Medication ?Instructions ?Recorded ?Last Taken ?Type amlodipine 10 mg tablet 10 mg PO DAILY BLOOD PRESSUR E 07/20/19 07/15/25 History cyanocobalamin (vitamin B-12) 3,000 mcg PO DAILY SUPPL EMENT 01/09/23 07/14/25 History 1,000 mcg tablet (Vitamin B-12) gabapentin 600 mg tablet 600 mg PO TID NERVE PAIN 07/15/25 History [id number]-[id number]-ulfa 8 mg-folic 400 1 tab PO DAILY HEALT H MAINTENANCE 01/09/23 07/14/25 History mcg-K 50 mcg-lutein 300 mcg tablet (Centrum Silver Women) pantoprazole 40 mg tablet,delayed 40 mg PO DAILY ACID REFLUX 01/09/23 07/14/25 History release escitalopram oxalate 5 mg tablet 5 mg PO QDAY 05/20/25 07/15/25 History (Lexapro) potassium chloride 10 mEq 10 meq PO DAILY 07/13/25 History capsule,extended release Allergy/AdvReac Type Severity Reaction Status Date / Time sulfadiazine Allergy Rash Verified 07/15/25 08:14 Family History Other Colon cancer Heart disease Surgical History Hx of colonoscopy Social History Smoking Status: Current every day smoker tobacco type: cigarettes ROS Constitutional Constitutional: Denies fatigue, fever(s), poor appetite, weight gain or weight loss Gastrointestinal Gastrointestinal: Denies belching, bloating, change in bowel habits, change in stool character, chewing difficulty, coffee ground emesis, constipation, cram ping, diarrhea, dyspepsia, dysphagia, early satiety, excessive flatus, fecal incontinence, heartburn, hematemesis, hematochezia, hemorrhoids, loose stools, melena, nausea, odynophagia, rectal bleeding, tenesmus, vomiting or weight changes Physical Exam Const alert, oriented x3, no apparent distress and healthy appearing General Appearance: cooperative GI normal to inspection, nondistended, normoactive bowel sounds, soft to palpation, non-tender and non-distended Percussion: normal to percussion Rectal Exam: deferred Assessment & Plan Assessment/Plan (1) Ulcerative colitis: (2) Diarrhea: PLAN: Assessment and Plan Assessment and Plan (1) Ulcerative colitis: Status: Chronic (2) Chronic pain: Status: Chronic Plan: 60-year-old woman, reports ongoing chronic pain described as a generalized ache throughout her body, primarily affecting her joints and muscles, which she rates as 7/10 at its worst. The pain is worse with activity and improves slightly with rest, heat, and gentle massage. She also reports severe chronic fatigue, which has been persistent for the last 6 months and significantly impacts her daily activities and quality of life. She struggles with sleep disturbances due to both pain and frequent nighttime awakenings related to her ulcerative colitis symptoms. She reports an increase in fatigue during UC flares. She has a history of chronic ulcerative colitis, managed with mesalamine and prednisone, but reports occasional flare-ups characterized by bloody diarrhea, abdominal cramping, and urgency. She denies fever or recent weight loss. She expresses frustration and sadness regarding the impact of her chronic conditions on her ability to engage in previously enjoyed activities and socialize with friends and family. She also has been having some problems with nausea vomiting. She smokes about a pack of cigarettes a day and smokes marijuana on daily basis. Awaiting blood work Assessment * Chronic Pain Syndrome ?Based on patient's subjective report of generalized, persistent pain, worsened by activity, and partially responsive to heat, rest, and massage, combined with objective findings of tenderness in multiple joints, suggests a diagnosis of Chronic Pain Syndrome. Differential diagnoses for chronic pain include fibromyalgia, osteoarthritis, rheumatoid arthritis, and other musculoskeletal or neurological conditions, particularly in older adults. * Chronic Fatigue Syndrome:?Patient's complaint of persistent, debilitating fatigue for over 6 months, significantly impacting daily functioning and not relieved by rest, aligns with criteria for Chronic Fatigue Syndrome (CFS). Consideration also given to fatigue secondary to UC, anemia, and depression. * Chronic Ulcerative Colitis (UC):?Patient has a documented history of UC, with current report of intermittent flares. Symptoms including bloody diarrhea, abdominal cramping, and urgency are consistent with UC activity. Current medications and their effectiveness should be reviewed in the context of the reported flare-ups. * Possible marijuana hyperemesis syndrome * Possible gastroparesis Plan * Chronic Pain: * Continue current pain management regimen by her PCP * Explore non-pharmacological pain management strategies such as gentle stretching exercises, movement therapies (e.g., yoga, Oc Chi), and heat/cold therapy for symptomatic relief. * Recommend evaluation by a pain specialist for further assessment and management options, including potential benefits of acupuncture or other modalities. * Chronic Fatigue: * Continue to monitor for and address potential underlying causes of fatigue, such as anemia or nutritional deficiencies. Consider supplements with iron, vitamin B12, and folate if deficiencies are identified through laboratory testing. * Emphasize the importance of activity management and pacing to avoid post- exertional malaise (PEM). * Recommend prioritizing adequate sleep (7-8 hours per night) and improving sleep hygiene practices. * Encourage engaging in relaxation techniques like deep breathing, mindfulness, or meditation to help manage stress and improve fatigue. * Consider a referral to a mental health professional for counseling and support in coping with the emotional impact of chronic illness. * Patient may need referral to rheumatology * Chronic Ulcerative Colitis: * Continue current UC medication regimen, monitoring closely for adherence and effectiveness. * Review medication list for potential drug-induced fatigue as a side effect. * Recommend a dietitian consultation to discuss dietary modifications that might alleviate symptoms and address any potential nutrient deficiencies. * Explore potential adjustments to UC medication with her level vial setter, especially if flare-ups become more frequent or severe. * Schedule surveillance colonoscopy * General: * Provide patient education on the importance of maintaining a healthy diet, staying hydrated (especially during UC flare-ups), and avoiding trigger foods if identified. * Encourage moderate exercise, such as walking or swimming, while being mindful of the limits imposed by fatigue and pain. * Schedule a follow-up appointment in [specify timeframe, e.g., 4-6 weeks] to monitor progress and address ongoing symptoms. * Advise the patient to contact the clinic if she experiences worsening symptoms, new concerns, or signs of infection . Orders:
[2025-07-15] MEDS: Lactated Ringers 1,000 ML 15 ML IV (08:30)
--- NOTE | 2025-07-15 09:00 | COLBX_PTH ---
PATIENT: MAIN SPENCE LOC: EN U#:[id number] AGE/SX: 60/F ROOM: RE07/15/[address]: Dr. Robi Duckworth DO : 1965 BED: DIS: 07/15/2025 SPEC #: [id number] RECD: 07/15/25 09:31 STATUS: HELLEN REMiriam #: [id number] KOLTON: 07/15/25 09:[address]: Robi Duckworth DEPT: SURGICAL PATHOLOGY RECD BY: Ted Hui ENTERED: 07/15/25 12:56 SP TYPE: COLON BX JESSICA DR: Dr. Gee Curran MD Tissues: A - Cecum, NOS B - COLON BIOPSY Procedures: Trichrome (control) Special Stain Group I Surgery Specimen Level IV HEADER OPERATION: Colonoscopy and biopsy PRE-OP DIAGNOSIS: Abdominal pain and diarrhea, ulcerative colitis TISSUE SUBMITTED: A- Cecum biopsy, B- Random colon biopsy MICROSCOPIC DIAGNOSIS A. Cecum, biopsy: * Mild active chronic inflammation with minimal crypt architectural distortion. * Negative for dysplasia. * Trichrome stain is negative for evidence of collagenous colitis. B. Colon, random, biopsy: * Mild active chronic inflammation with minimal crypt architectural distortion. * Negative for dysplasia. * Trichrome stain highlights patchy thickening of the subepithelial collagen table - see note. Note: Patchy thickening of the subepithelial collagen table raises consideration of collagenous (microscopic) colitis. Recommend correlation with clinical and endoscopic findings. MICROSCOPIC DESCRIPTION Slides are reviewed. All matched controls reacted appropriately. These tests were developed and their performance characteristics determined by [facility]. They may not have been cleared or approved by the U.S. Food and Drug Administration. The FDA has determined that such clearance or approval is not necessary. The above immunohistochemical markers and/or special stains have been reviewed by the Pathologist. GROSS DESCRIPTION A. Received in fixative is one container labeled with the patient's name and designated Cecum biopsy. The specimen consists of three irregular fragments of light pratt soft tissue that measure 0.2 to 0.7 cm. The specimen is totally submitted in one cassette. B. Received in fixative is one container labeled with the patient's name and designated Random colon biopsy. The specimen consists of multiple irregular fragments of light pratt soft tissue that in aggregate measure 1.5 x 0.8 x 0.2 cm. The specimen is totally submitted in one cassette. [place] 07/15/2025 CPT:96202s0,09994k5
--- NOTE | 2025-07-15 09:13 | PCM.POST.ANE ---
Anesthesia: Postop Eval I Current Vital Signs Temperature: 97.2 F Pulse Rate: 77 Blood Pressure: 123/79 Respiratory Rate: 16 Pulse Ox: 99 Oxygen Delivery Method: Room Air Assessment Airway patent: Yes Spontaneous unlabored respirations: Yes Mental status: Asleep nausea: No Vomiting: No Anesthesia Complication: No Fluid Hydration Crystalloid volume administer (ml): 500 Total IV fluid infused: 500 Progress Note Anesthesia document: Postop Eval 1 completed: Yes
--- NOTE | 2025-07-15 09:14 | OP.COLON_ITS ---
Patient Name: Gabby Croft Procedure Date: 07/15/2025 8:23 AM Date of : 1965 Age: 60 Procedure: Colonoscopy Indications: Follow-up of left-sided chronic ulcerative colitis Providers: Robi Duckworth DO Medicines: Monitored Anesthesia Care Patient Profile: This is a 60 year old female. Refer to note in patient chart for documentation of history and physical. Last Colonoscopy: several years ago. Complications: No immediate complications. Procedure: Pre-Anesthesia Assessment: - Prior to the procedure, a History and Physical was performed, and patient medications and allergies were reviewed. The patient is competent. The risks and benefits of the procedure and the sedation options and risks were discussed with the patient. All questions were answered and informed consent was obtained. Patient identification and proposed procedure were verified by the physician in the pre-procedure area. Mental Status Examination: alert and oriented. Airway Examination: normal oropharyngeal airway and neck mobility. Respiratory Examination: clear to auscultation. CV Examination: normal. Prophylactic Antibiotics: The patient does not require prophylactic antibiotics. Prior Anticoagulants: The patient has taken no anticoagulant or antiplatelet agents except for NSAID medication. ASA Grade Assessment: II - A patient with mild systemic disease. After reviewing the risks and benefits, the patient was deemed in satisfactory condition to undergo the procedure. The anesthesia plan was to use monitored anesthesia care (MAC). Immediately prior to administration of medications, the patient was re-assessed for adequacy to receive sedatives. The heart rate, respiratory rate, oxygen saturations, blood pressure, adequacy of pulmonary ventilation, and response to care were monitored throughout the procedure. The physical status of the patient was re-assessed after the procedure. After I obtained informed consent, the scope was passed under direct vision. Throughout the procedure, the patient's blood pressure, pulse, and oxygen saturations were monitored continuously. The colonoscope was introduced through the anus and advanced to the terminal ileum. The colonoscopy was performed without difficulty. The patient tolerated the procedure well. The quality of the bowel preparation was adequate. The terminal ileum, ileocecal valve, appendiceal orifice, and rectum were photographed. Scope In: 8:46:20 AM Scope Withdrawal Time 0 hours 10 minutes 6 seconds Scope Out: 9:00:57 AM Total Procedure Duration Time 0 hours 14 minutes 37 seconds Findings: The perianal and digital rectal examinations were normal. An area of mildly congested mucosa was found in the rectum, in the recto-sigmoid colon, in the transverse colon and in the cecum. Biopsies were taken with a cold forceps for histology. Verification of patient identification for the specimen was done. Estimated blood loss was minimal. Multiple small-mouthed diverticula were found in the sigmoid colon. Impression: - Congested mucosa in the rectum, in the recto-sigmoid colon, in the transverse colon and in the cecum. Biopsied. - Diverticulosis in the sigmoid colon. Recommendation: - Discharge patient to home. - Resume previous diet. - Continue present medications. - Await pathology results. - Repeat colonoscopy in 3 years for surveillance based on pathology results. Procedure Code(s): --- Professional --- 57513, Colonoscopy, flexible; with biopsy, single or multiple CPT copyright 2021 [employer]. All rights reserved. The codes documented in this report are preliminary and upon gusset maker review may be revised to meet current compliance requirements. Robi Duckworth DO 07/15/2025 9:14:05 AM This report has been signed electronically. Number of Addenda: 0 Note Initiated On: 07/15/2025 8:23 AM
--- NOTE | 2025-07-15 09:14 | OP.PROVAT_ITS ---
07/15/2025 Gee Curran [address] [place] [address] Re : Colonoscopy procedure for Gabby Hogane Dear Dr. Curran This procedure was performed on Tuesday, July 15, 2025. My impressions and recommendations are as follows: Impressions : - Congested mucosa in the rectum, in the recto-sigmoid colon, in the transverse colon and in the cecum. Biopsied. - Diverticulosis in the sigmoid colon. Recommendations : - Discharge patient to home. - Resume previous diet. - Continue present medications. - Await pathology results. - Repeat colonoscopy in 3 years for surveillance based on pathology results. My findings are described in the full procedure note, which is enclosed. If I can be of further assistance, please feel free to contact me at . Sincerely, Robi Duckworth, 07/15/2025 9:14:05 AM This report has been signed electronically.
--- NOTE | 2025-07-15 13:11 | PCM.POSTANE2 ---
Anesthesia Postop Eval I Sum Postop Eval Completion status Anesthesia document: Postop Eval 1 completed: Yes Anesthesia Postop Eval I Summary Anesthesia Postop Eval I Summary: Anesthesia Postop Eval I: Assessment Summary Airway patent Yes 07/15/25 09:14 [email or web address] Spontaneous unlabored Yes 07/15/25 09:14 [email or web address] respirations Mental status Asleep 07/15/25 09:14 [email or web address] nausea No 07/15/25 09:14 [email or web address] Vomiting No 07/15/25 09:14 [email or web address] Anesthesia Postop Eval I: Fluid Summary Crystalloid volume administer 500 07/15/25 09:14 [email or web address] (ml) Colloids volume administered ( ml) Blood Product volume administered (ml) Total IV fluid infused 500 07/15/25 09:14 [email or web address] Anesthesia Postop Eval I: Summary Notes Anesthesia Complication No 07/15/25 09:14 [email or web address] Anesthesia Complication Comment: Post-operative progress note Anesthesia: Postop Eval II Evaluation Mental status: Awake Pain Level: 0 nausea: No Vomiting: No
== END 2025-07-15 09:52 | disposition home or self-care (01) ==
LOC: EN 07:59 → AC 08:00
PROVIDERS: PCP Family Medicine; Referring Provider Family Medicine; Visit Provider Internal Medicine Gastroenterology
PROC: 0DJD8ZZ Inspection of Lower Intestinal Tract, Via Natural or Artificial Opening Endoscopic (ICD-10-PCS; CPT 45378; principal; 2025-07-15 08:55)
DX: K51.90 Ulcerative colitis, unspecified, without complications (principal); I10 Essential (primary) hypertension; K57.30 Diverticulosis of large intestine without perforation or abscess without bleeding; F17.210 Nicotine dependence, cigarettes, uncomplicated; K21.9 Gastro-esophageal reflux disease without esophagitis; G89.4 Chronic pain syndrome; G93.32 Myalgic encephalomyelitis/chronic fatigue syndrome; Z80.0 Family history of malignant neoplasm of digestive organs; Z79.899 Other long term (current) drug therapy; F41.9 Anxiety disorder, unspecified; K62.89 Other specified diseases of anus and rectum; K63.89 Other specified diseases of intestine; K36 Other appendicitis
CPT/HCPCS: 45380; 88305; 88312; J2405

== ENCOUNTER 2025-08-26 12:10 | Emergency (ER) | payer BC, SELFPAY ==
[2025-08-26 12:12] VITALS: BP 144/87; PULSE 98; RESP 18; TEMP 36.6; O2SAT 98; BMI 29.9
--- NOTE | 2025-08-26 12:20 | EKG12_ITS ---
Test Reason : PALP
--- NOTE | 2025-08-26 12:46 | EX.ED.DYSGE1 ---
HPI History of Present Illness Chief Complaint: Palpitations Narrative Narrative: Patient is a 60-year-old female presenting to the emergency department for an episode of palpitations. Patient has a past medical history of hypertension, ulcerative colitis, chronic pain related to her back. Patient states that today she was getting ready for work putting her make-up on around 10 AM when she started to have palpitations. She describes it as her heart racing and feeling irregular. She states that she had indigestion during this time. Patient states that she felt very winded as well. She states she has had palpitations in the past but not to this extent. She denies any chest pain, abdominal pain, nausea or vomiting. She reports caffeine use, drank 3 cups of coffee this morning but states has been doing this for years. She denies any drugs, alcohol, stimulants. She does smoke nicotine. No recent fever, chills, cough, congestion, lower extremity edema. Denies any history of PE or DVT. Denies any recent travel, hospitalizations or surgeries denies any lower extremity edema. [facility] Medical History Post-menopausal History of steroid therapy Arthritis Fatty liver Back pain Syncope Gastric reflux Smoker Hoarseness History of echocardiogram Hypertension Substance abuse Anxiety History of IBS Home Medications ?Medication ?Instructions ?Recorded ?Last Taken ?Type amlodipine 10 mg tablet 10 mg PO DAILY BLOOD PRESSURE 07/20/19 07/15/25 History cyanocobalamin (vitamin B-12) 3,000 mcg PO DAILY SUPPLEMENT 01/09/23 07/14/25 History 1,000 mcg tablet (Vitamin B-12) gabapentin 600 mg tablet 600 mg PO TID NERVE PAIN 01/09/23 07/15/25 History bgmmoumn-gyuo-owpw 8 mg-folic 400 1 tab PO DAILY HEALTH MAINTENANCE 01/09/23 07/14/25 History mcg-K 50 mcg-lutein 300 mcg tablet (Centrum Silver Women) pantoprazole 40 mg tablet,delayed 40 mg PO DAILY ACID REFLUX 01/09/23 07/14/25 History release escitalopram oxalate 5 mg tablet 5 mg PO QDAY 05/20/25 07/15/25 History (Lexapro) potassium chloride 10 mEq 10 meq PO DAILY 07/13/25 07/14/25 History capsule,extended release budesonide 3 mg 6 mg (2 x 3 mg) PO QDAY #60 ea 08/22/25 Unknown Rx capsule,delayed,extended release amoxicillin 500 mg capsule 500 mg PO 4X/DAY 08/26/25 Unknown History Allergy/AdvReac Type Severity Reaction Status Date / Time sulfadiazine Allergy Rash Verified 08/26/25 12:16 Family History Other Colon cancer Heart disease Surgical History Hx of colonoscopy Social History Smoking Status: Current every day smoker tobacco type: cigarettes ROS ROS ED ROS Narrative See HPI EXAM Physical Exam Narrative Exam Narrative: Vital signs: Reviewed General: Alert and oriented x 3. No acute distress HEENT: Head is normocephalic and atraumatic, sinuses nontender, pupils equal round and reactive. Nares are patent. Oropharynx and throat exams normal. Neck: Supple without lymphadenopathy nontender Cardiovascular: Regular rate and rhythm, no murmurs. No rubs or gallops. Normal S1 and S2 Respiratory: Clear to auscultation bilaterally. No wheezes, rales, rhonchi Abdominal: Soft and nontender. Normal bowel sounds. No guarding or rebound. Nonsurgical abdomen Extremities: No lower extremity edema. No tenderness. No bruising. Normal range of motion. Normal sensation. Skin: No rash or redness. Neurological: Cranial nerves II through XII are grossly intact. Normal strength and sensation. Normal cerebellar function The rest of the physical exam is unremarkable Const Vital Signs: 08/26/25 12:12 08/26/25 12:15 08/26/25 13:53 Temperature 97.8 F Temperature Source Oral Pulse Rate 98 82 Respiratory Rate 18 14 Respiratory Effort Normal Non-Labored Blood Pressure 144/87 H 134/90 H Blood Pressure Mean 106 104 Pulse Ox 98 99 Oxygen Delivery Method Room Air Room Air 08/26/25 14:00 Temperature 98 F Temperature Source Pulse Rate 89 Respiratory Rate 14 Respiratory Effort Blood Pressure 133/89 H Blood Pressure Mean 103 Pulse Ox 99 Oxygen Delivery Method MDM MDM MDM Narrative Medical decision making narrative: Patient is a 60-year-old female presenting to the emergency department for palpitations. Patient was seen and examined. Vitals are stable. Patient resting in bed comfortably no acute distress. Patient was in SVT per EMS. We were not given a copy of the EMS EKG so I was not able to review this. They reported that the heart rate was in the 180s. 6 mg of adenosine was given and patient had resolution of the palpitations, indigestion feeling and heart rate improved into the 90s appears to be his normal sinus rhythm on the monitor. Patient has no symptoms at time of evaluation. She denies any indigestion feeling, chest pain, shortness of breath. Is asymptomatic at time of evaluation. Will check electrolytes, TSH, magnesium. Will provide cardiology follow-up. Patient is due for a root canal soon and has chronic back pain that is unchanged from baseline. She is asking for analgesia for this. This is not her complaint today. BMP with no significant abnormalities. Magnesium and TSH within normal limits. Clinical impression: SVT History & Record Review Discussion w/independent historian: EMS personnel and Patient Lab Data Attestation: I reviewed the patient's lab results. Labs: Laboratory Results - last 24 hr 08/26/25 12:19 Sodium 140 Potassium 3.3 Chloride 102 Carbon Dioxide 23.4 Anion Gap 15 BUN 11 Creatinine 0.94 Estim Creat Clear Calc 71.94 Est GFR (MDRD) Non-Af 70 BUN/Creatinine Ratio 11.9 Glucose 153 H Calcium 9.9 Magnesium 1.8 TSH 1.850 Discharge Plan Triage Chief Complaint: Palpitations ED Provider: Bria Sloan Dx/Rx/DC Orders Clinical Impression: SVT (supraventricular tachycardia) Instructions: ED Understanding Supraventricular Tachycardia (SVT) Prescriptions: No Action escitalopram oxalate [Lexapro] 5 mg tablet 5 mg PO QDAY amlodipine 10 MG tablet 10 mg PO DAILY gabapentin 600 mg tablet 600 mg PO TID cyanocobalamin (vitamin B-12) [Vitamin B-12] 1,000 mcg Tablet 3,000 mcg PO DAILY Centrum Silver Women 8 mg iron-400 mcg-300 mcg Tablet 1 tab PO DAILY pantoprazole 40 MG tablet,delayed release (DR/EC) 40 mg PO DAILY amoxicillin 500 mg capsule 500 mg PO 4X/DAY potassium chloride 10 mEq capsule, extended release 10 meq PO DAILY budesonide 3 mg capsule,delayed,extend.release 6 mg PO QDAY Qty: 60 1RF Primary Care Provider: Gee Curran Referrals: Mavis Flores MD [Med Staff - Active Staff, Interventional Cardiology] - As soon as possible Gee Curran MD [Primary Care Provider, Family Practice] Activity Restrictions/Additional Instructions: Follow-up with the carpet layer helper listed below as soon as possible. If you develop palpitations again, chest pain, shortness of breath you need to return to the emergency department immediately. Try to limit your caffeine consumption. Your evaluation in the Emergency Department did not reveal any acute reason for admission. However, I want to emphasize that you may be early in the course of a disease process or illness even if it is not present. For this reason you should follow-up within 24 hours for reevaluation with either your primary care physician or if necessary back here in the Emergency Department. You should return to the Emergency Department immediately if your symptoms worsen or new symptoms develop. Print Language: [place] Citizen Disposition Disposition: Home, Self Care Discharge Date/Time: 08/26/25 14:08
[2025-08-26 13:19] LABS: Anion Gap 15 (5-15); BUN 11 mg/dL (4-19); BUN/Creat Ratio 11.9 RATIO (10-20); Calcium,Total 9.9 mg/dL (7.6-11.0); Carbon Dioxide 23.4 mmol/L (21.0-32.0); Chloride 102 mmol/L (98-108); Estimated Creatinine Clearance 71.94 ml/min (50-250); Glucose 153 mg/dL (70-99); Magnesium 1.8 mg/dL (1.5-2.2); Potassium 3.3 mmol/L (3.3-5.1)
[2025-08-26 13:53] VITALS: BP 134/90; PULSE 82; RESP 14; O2SAT 99
[2025-08-26 14:00] VITALS: BP 133/89; PULSE 89; RESP 14; TEMP 36.6; O2SAT 99
== END 2025-08-26 14:08 | disposition home or self-care (01) ==
PROVIDERS: Emergency Provider Student in an Organized Health Care Education/Training Program; PCP Family Medicine; Visit Provider Student in an Organized Health Care Education/Training Program
DX: I47.10 Supraventricular tachycardia, unspecified (principal); I10 Essential (primary) hypertension; M54.9 Dorsalgia, unspecified; G89.29 Other chronic pain; K21.9 Gastro-esophageal reflux disease without esophagitis; F17.210 Nicotine dependence, cigarettes, uncomplicated
CPT/HCPCS: 80048; 83735; 84443; 93005; 99285; A4216